=== PATIENT | female | born 1980 | race Caucasian/White ===

== ENCOUNTER 2017-12-24 02:35 | Emergency (ER) | payer MEDICAID ==
[~2017-12-24] VITALS: Ht 157.5 cm; Wt 113.4 kg
[~2017-12-24 02:35] MED LIST: ALB6.8IN; ALBU17AE3; ALPR.5T; AZIT-21; BSP10T; CYCL10TA9 PO; D-ME473S42; DELSYM; DOXE10CA; DOXE10CA29; DOXE75CA2; DULO60CA6; EST.625T; GBPN300C; HYDR1CAP2; HYDR1CAP2 PO; HYDR1TAB; IBP800T PO; LEVO750T6 PO; LRT10T; METH4TAB PO; METO10TA3 PO; MTC10T; NAPR-243 PO; NF-ESOM40C; NPR250TRX; ONDAN4ODT PO; PRM25T PO; RNT150T; SERT50TA; SLEEPING PILL; SRTR100T; THIO25TA; TRAM50TA2; TRM50T PO; TRZ100T; ZPR40C; [UNRECOGNIZED DRUG - CODE]; [UNRECOGNIZED DRUG - OTHER]
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
--- OUTSIDE RECORDS SUMMARY | 2017-12-24 02:42 | XMS REPORT ---
Author Author CINDY MARCIAL Organization [facility] Address [address] [place] [address] Care Team Providers Care Adjunct Communications Faculty Member Name Role Phone NEERUCHRIS CUELLOA Unavailable PROBLEMS Type Condition ICD9-CM Code SLZ17-UD Code Onset Dates Condition Status SNOMED Code Problem Lumbago with sciatica, left side M54.42 Active 542605786 Problem Other chronic pain G89.29 Active 51402661 Problem Lumbago with sciatica, right side M54.41 Active [id number] Problem Fibrocystic changes of left breast N60.12 Active 71494809 Problem Panic disorder with agoraphobia F40.01 Active 00102631 Problem 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 Active [id number] Problem COPD (chronic obstructive pulmonary disease) J44.9 Active 87440111 Problem Bipolar disease, chronic F31.9 Active 96650109 Problem Morbid (severe) obesity due to excess calories E66.01 Active [id number] Problem Body mass index (BMI) of 40.0-44.9 in adult Z68.41 Active 425647228 Problem Right sciatic nerve pain M54.31 Active 67274092 Problem Depressive disorder, not elsewhere classified F32.9 Active 23918412 Problem Acquired hypothyroidism E03.9 Active 516816650 Problem Pre-diabetes R73.03 Active 209664631 Problem Degenerative joint disease M19.90 Active 233522331 Problem Chronic pain G89.29 Active 37375407 Problem Methamphetamine use disorder, severe, 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 Active 32713165 Problem Opioid use disorder, moderate, dependence F11.20 Active 80301792 Problem Cigarette nicotine dependence without complication F17.210 Active 60840282 Problem Psychosis, unspecified psychosis type F29 Active 61846620 Problem Xanax use disorder, moderate F13.20 Active 744043629 Problem Personality disorder F60.9 Active 93474453 ALLERGIES Substance Reaction Event Type Date Status Tramadol HCl nausea and vomiting Drug Allergy Sep, Active Penicillin V Potassium anaphylaxis Drug Allergy Sep, Active Naproxen swelling Drug Allergy Sep, Active Keflex anaphylaxis Drug Allergy Sep, Active Ibuprofen nausea and vomitting Drug Allergy Sep, Active Aspirin hives Drug Allergy Sep, Active ENCOUNTERS Encounter Location Date Diagnosis [facility] [place] [facility] [id number] [place] [address]66- 9295 Jan, [facility] [facility] [address] [address]- [address] Dec, [place] [address] [address]- [address] Dec, [place] [address] [address]- 5639 Dec, [place] [address] 30541- 0044 Dec, Methamphetamine use disorder, severe, 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 ; Psychosis, unspecified psychosis type F29 ; Personality disorder F60.9 ; Opioid use disorder, moderate, dependence F11.20 ; Xanax use disorder, moderate F13.20 and BMI 45.0-49.9, adult Z68.42 [place] [id number] [place] [address] 09784- 4705 Dec, [place] [id number] [place] [address] 96052- 5387 Oct, Breast pain N64.4 ; Fibrocystic changes of left breast N60.12 and Bilateral otitis media with effusion H65.93 [facility] [id number] [place] [address] -3864 Sep, 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 [facility] [place] [facility] [id number] [place] [address] 07646- 1925 Sep, [facility] [place] [facility] [id number] [place] [address] 44385- 6906 Sep, Methamphetamine use disorder, severe, 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 ; Psychosis, unspecified psychosis type F29 ; Personality disorder F60.9 ; Opioid use disorder, moderate, dependence F11.20 ; Xanax use disorder, moderate F13.20 and BMI 40.0-44.9, adult Z68.41 [facility] [place] [facility] [id number] [place] [address] 93503- 9376 Sep, Depressive disorder, not elsewhere classified F32.9 and Psychosis, unspecified psychosis type F29 [place] [address] 6[address]65- 6513 August, [place] [address] 169408- 9343 August, Depressive disorder, not elsewhere classified F32.9 and Psychosis, unspecified psychosis type F29 [place] [address] 54526- 2436 August, [place] [address] 53571- 7697 August, Lumbago with sciatica, right side M54.41 and Other chronic pain G89.29 [facility] [address] 31492 -3087 Jul, Right sciatic nerve pain M54.31 [place] [address] 17997- 3942 Jul, Acquired hypothyroidism E03.9 [facility] [facility] [address] 6[address]00- 1396 Jul, Depressive disorder, not elsewhere classified F32.9 and Psychosis, unspecified psychosis type F29 [place] [address] 46688- 3707 Jul, Acquired hypothyroidism E03.9 ; Lumbago with sciatica, right side M54.41 and Lumbar radiculopathy, acute M54.16 [facility] [place] [facility] [address] 15724- 4732 Jul, Methamphetamine use disorder, severe, 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 ; Psychosis, unspecified psychosis type F29 ; Personality disorder F60.9 ; Opioid use disorder, moderate, dependence F11.20 ; Xanax use disorder, moderate F13.20 and BMI 40.0-44.9, adult Z68.41 [place] [id number] [place] [address] 48520- 0159 Jun, Methamphetamine use disorder, severe, 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 ; Psychosis, unspecified psychosis type F29 ; Personality disorder F60.9 ; Opioid use disorder, moderate, dependence F11.20 and Xanax use disorder, moderate F13.20 [place] [address] 93900- 1493 Jun, Depressive disorder, not elsewhere classified F32.9 and Psychosis, unspecified psychosis type F29 [place] [id number] [place] [address] 74436- 0283 Jun, Lumbar radiculopathy, acute M54.16 [place] [id number] [place] [address] 62970- 5613 Jun, Lumbar radiculopathy, acute M54.16 ; Strain of abdominal wall, initial encounter S39.011A and BMI 40.0-44.9, adult Z68.41 [place] [id number] [place] [address] 01441- 5661 Jun, [place] [id number] [place] [address] 40474- 6127 May, [place] [id number] [place] [address] 80691- 2934 May, Methamphetamine use disorder, severe, 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 ; Psychosis, unspecified psychosis type F29 ; Personality disorder F60.9 ; Opioid use disorder, moderate, dependence F11.20 and Xanax use disorder, moderate F13.20 [place] [id number] [place] [address] 94936- 2722 May, [facility] [facility] [address] 09034- 8344 May, [place] [address] 89052- 8652 May, Lumbago with sciatica, left side M54.42 ; Lumbago with sciatica, right side M54.41 ; Other chronic pain G89.29 ; Weight gain R63.5 ; Acquired hypothyroidism E03.9 and BMI 40.0-44.9, adult Z68.41 [place] [address] 51903- 3554 Apr, Cigarette nicotine dependence without complication F17.210 [place] [address] 63227- 3126 Apr, Acute bilateral low back pain without sciatica M54.5 [place] [address] 11729- 3189 Apr, Methamphetamine use disorder, severe, 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 ; Psychosis, unspecified psychosis type F29 ; Personality disorder F60.9 ; Opioid use disorder, moderate, dependence F11.20 and Xanax use disorder, moderate F13.20 [facility] [address] 94773 -7467 Apr, Wheezing R06.2 and Bronchitis J40 [place] [address] 90198- 2692 Apr, Bronchitis J40 ; Cigarette nicotine dependence without complication F17.210 and Bipolar disease, chronic F31.9 [place] [address] 00176- 4253 Mar, Acquired hypothyroidism E03.9 [place] [address] 91903- 8173 Mar, Acquired hypothyroidism E03.9 [facility] [facility] [address] [id number]- 2546 Mar, Orthostatic hypotension I95.1 and Non-intractable vomiting with nausea, unspecified vomiting type R11.2 [place] [id number] [place] [address] 98736- 0965 14 Mar, 2017 Strain of lumbar region, initial encounter S39.012A [address] 28308- 7152 Mar, [facility] [address] [place] [address]648 -2412 Mar, Bronchitis J40 [address] 44060- 9434 05 Mar, 2017 Degenerative joint disease M19.90 ; Elevated LFTs R79.89 ; Adenopathy R59.1 ; Drug use F19.90 ; Pre-diabetes R73.03 and COPD (chronic obstructive pulmonary disease) J44.9 [facility] [address] [address] Feb, Left hand pain M79.642 and Contusion of left hand, initial encounter S60.222A [address] 54929- 9582 Feb, Body aches R52 and Flu-like symptoms R68.[address] 35431- 5848 Jan, [address] 64421- 3861 18 Jan, 2017 Bipolar disease, chronic F31.9 ; Acquired hypothyroidism E03.9 and Encounter for immunization Z23 [facility] [address] 296[address]96 05 Dec, 2016 Crushing injury of left wrist and hand, initial encounter S67.42XA [address] 15746- 3775 Sep, [place] [address] 60217- 4810 Sep, Bipolar disease, chronic F31.9 ; Panic disorder with agoraphobia F40.01 and Proteinuria, unspecified type R80.9 [place] [address] 37364- 4963 August, [address] 56700- 0788 August, Degenerative joint disease M19.90 ; Left-sided chest wall pain R07.89 ; Bipolar disease, chronic F31.9 ; Type 2 diabetes mellitus without complication, without long-term current use of insulin E11.9 ; Acquired hypothyroidism E03.9 and Acute cystitis without hematuria N30.[address] 05569- 7430 Mar, [address] 19588- 3117 Feb, [facility] [address] 9[address] -9362 Feb, Right hand pain M79.641 [facility] [address] 01266 -5269 Feb, Bronchitis J40 ; Acute non-recurrent pansinusitis J01.40 and Seasonal allergic rhinitis due to other allergic trigger J30.[address] 32821- 7108 Dec, [facility] [address] 37960 -7135 Mar, Left-sided chest wall pain R07.89 and Chronic pain G89.[address] 67360- 4298 Jul, [address] 79705- 7009 Jul, [facility] [place] [facility] [address] [id number] [place] [address]- 8010 May, [facility] [place] [facility] [address] [id number] [place] [address]- 4210 May, [facility] [place] [facility] [address] [id number] [place] 7[address] Apr, [facility] [place] [facility] [address] [id number] [place] [address]- 0046 Apr, [facility] [place] [facility] [address] [id number] [place] [address]- 2830 Mar, [facility] [place] [facility] [address] [id number] [place] [address]- 0028 Mar, [facility] [place] [facility] [address] [facility] [id number] [place] [address]- 3005 Feb, [facility] [place] [facility] [address] [id number] [place] [address]- 7388 Feb, [facility] [place] [facility] [address] [id number] [place] [address]- 3863 Jan, [facility] [place] [facility] [address] [id number] [place] [address]- 1329 Jan, [facility] [place] [facility] [address] [id number] [address]- 2328 Jan, [facility] [place] [facility] [address] [id number] [address]- 3538 Jan, [facility] [place] [facility] [address] [id number] [place] [address]- 8090 Jan, [facility] [place] [facility] [address] [id number] [place] [address]- 1435 Jan, [facility] [place] [facility] [address] [facility] [id number] [place] 8266 19 Dec, 2013 [facility] [place] [facility] [address] [id number] [address]- 7949 19 Dec, 2013 [facility] [place] [facility] [address] [id number] [place] [address]- 1171 19 Dec, 2013 [facility] [place] [facility] [address] [id number] [place] [address]- 6828 19 Dec, 2013 [facility] [place] [facility] [address] [id number] [place] [address]- 0992 18 Dec, 2013 [facility] [place] [facility] [address] [id number] [place] [address]- 6046 18 Dec, 2013 [facility] [place] [facility] [address] [id number] [place] [address]- 5190 16 Dec, 2013 [facility] [place] [facility] [address] [id number] [place] [address]- 6037 16 Dec, 2013 [facility] [place] [facility] [address] [id number] [place] [address]- 1334 17 Sep, 2013 [facility] [place] [facility] [address] [id number] [place] [address]- 3322 17 Sep, 2013 [facility] [place] [facility] [address] [id number] [place] [address]- 7014 15 Jul, 2013 [facility] [place] [facility] [address] [id number] [place] [address]- 6380 15 Jul, 2013 [facility] [place] [facility] [address] [id number] [place] [address]- 2004 10 Jul, 2013 [facility] [place] [facility] [address] [id number] [place] [address]- 7352 10 Jul, 2013 [facility] [place] [facility] [address] [id number] [place] [address]- 8572 03 Jul, 2013 [facility] [place] [facility] [address] [id number] [place] [address]- 9849 03 Jul, 2013 [facility] [place] [facility] [address] [id number] [place] [address]- 2180 03 Jul, 2013 [facility] [place] [facility] [address] [id number] [place] [address]- 9010 Jul, [facility] [place] [facility] [address] [id number] [place] [address]- 7216 Jun, [facility] [place] [facility] [address] [id number] [place] [address]- 7809 Jun, [facility] [place] [facility] [address] [id number] [place] [address]- 0074 May, [facility] [place] [facility] [address] [id number] [place] [address]- 8142 May, [facility] [place] [facility] [address] [id number] [place] [address]- 4104 May, [facility] [place] [facility] [address] [id number] [place] [address]- 4303 May, [facility] [place] [facility] [address] [id number] [place] [address]- 7186 Apr, [facility] [place] [facility] [address] [id number] [place] [address]- 5292 Apr, [facility] [place] [facility] [address] [id number] [place] [address]- 5213 Mar, [facility] [place] [facility] [address] [id number] [place] [address]- 9428 Mar, [facility] [place] [facility] [address] [id number] [place] [address]- 5505 Feb, [facility] [place] [facility] [address] [id number] [place] [address]- 0531 Feb, [facility] [place] [facility] [address] [id number] [place] [address]- 1105 Feb, [facility] [place] [facility] [address] [id number] [place] [address]- 7951 Feb, [facility] [place] [facility] [address] [id number] [place] [address]- 1366 Jan, [facility] [address] [id number] [place] [address]- 9899 Jan, [facility] [place] [facility] [address] [id number] [place] [address]- 7906 Jan, [facility] [place] [facility] [address] [id number] [place] [address]- 7773 Jan, [facility] [place] [facility] [address] [id number] [place] [address]- 8617 Jan, [facility] [place] [facility] [address] [id number] [place] [address]- 6063 Dec, [facility] [place] [facility] [address] [id number] [place] [address]- 3875 Dec, [facility] [place] [facility] [address] [id number] [place] [address]- 1503 Nov, [facility] [place] [facility] [address] [id number] [place] [address]- 0636 Sep, [facility] [place] [facility] [address] [id number] [place] [address]- 8927 August, [facility] [place] [facility] [address] [id number] [place] [address]- 5752 August, [facility] [place] [facility] [address] [id number] [place] [address]- 4570 Jul, [facility] [place] [facility] [address] [id number] [place] [address]- 6561 Jul, [facility] [place] [facility] [address] [id number] [place] [address]- 1000 Jul, [facility] [place] [facility] [address] [id number] [place] [address]- 3316 Jul, [facility] [place] [facility] [address] [id number] [place] [address]- 8447 Jul, [facility] [place] [facility] [address] [id number] [place] [address]- 2546 Jul, [facility] [address] [id number] [place] [address]- 8016 Jul, [facility] [address] [id number] [place] [address] 2546 Jun, [facility] [address] [id number] [place] [address]- 2216 Jun, [facility] [address] [id number] [place] [address]- 2546 May, [facility] [address] [id number] [place] [address]- 4994 Apr, [facility] [address] [id number] [place] [address]- 3156 Apr, [facility] [address] [id number] [place] [address]- 6675 Mar, [facility] [address] [id number] [place] [address]- 1576 Mar, [facility] [address] [id number] [place] [address]- 8640 Mar, [facility] [address] [id number] [place] [address]- 2147 Feb, [facility] [address] [id number] [place] [address]- 6000 Feb, [facility] [address] [id number] [place] [address]- 2549 Feb, [facility] [address] [id number] [place] [address]- 3357 Feb, [facility] [address] [id number] [place] [address]- 1226 Feb, [facility] [address] [id number] [place] [address]- 0184 Feb, [facility] [place] [facility] [address] [id number] [place] [address]- 3567 16 Feb, 2012 [facility] [place] [facility] [address] [id number] [place] [address]- 4768 16 Feb, 2012 [facility] [place] [facility] [address] [id number] [place] [address]- 3569 14 Feb, 2012 [facility] [place] [facility] [address] [id number] [place] [address]- 9794 Feb, [facility] [place] [facility] [address] [id number] [place] [address]- 1418 Feb, [facility] [place] [facility] [address] [id number] [place] [address]- 3305 27 Dec, 2011 [facility] [place] [facility] [address] [id number] [place] [address]- 7685 Dec, [facility] [place] [facility] [address] [id number] [place] [address]- 5719 30 Nov, 2011 [facility] [place] [facility] [address] [id number] [place] [address]- 5439 Nov, [facility] [place] [facility] [address] [id number] [place] [address]- 4321 Oct, [facility] [place] [facility] [address] [id number] [place] [address]- 2482 Oct, [facility] [place] [facility] [address] [id number] [place] [address]- 8813 Sep, [facility] [place] [facility] [address] [id number] [place] [address]- 8848 May, [facility] [place] [facility] [address] [id number] [place] [address]- 7616 15 May, 2011 [facility] [place] [facility] [address] [id number] [place] [address]- 7056 May, [facility] [place] [facility] [address] [id number] [place] [address]- 0606 03 Apr, 2011 [facility] [place] [facility] [address] [id number] [place] [address]- 0965 Mar, [facility] [place] [facility] [address] [id number] [place] [address]- 3190 Mar, [facility] [place] [facility] [address] [id number] [place] [address]- 7623 Feb, [facility] [place] [facility] [address] [id number] [place] [address]- 3342 Feb, [facility] [place] [facility] [address] [id number] [place] [address]- 3344 Feb, [facility] [place] [facility] [address] [id number] [place] [address]- 5957 Jan, [facility] [place] [facility] [address] [id number] [place] [address]- 3194 Jan, [facility] [place] [facility] [address] [id number] [place] [address] Dec, [facility] [place] [facility] [address] [id number] [place] [address] Mar, [facility] [place] [facility] [address] [id number] [place] [address] Feb, [facility] [place] [facility] [address] [id number] [place] [address] 10 Feb, 2009 [facility] [place] [facility] [address] [id number] [place] [address] Feb, [facility] [place] [facility] [address] [id number] [place] [address] Jan, [facility] [place] [facility] [address] [id number] [place] [address] 16 Dec, 2008 [facility] [place] [facility] [address] [id number] [place] [address] Nov, [facility] [place] [facility] [address] [facility] [id number] [place] [address] Sep, [facility] [place] [facility] [address] [facility] [id number] [place] [address] August, [facility] [place] [facility] [address] [facility] [id number] [place] [address] May, [facility] [place] [facility] [address] [facility] [id number] [place] [address] Mar, IMMUNIZATIONS No Known Immunizations SOCIAL HISTORY Never Assessed REASON FOR VISIT refugio/britni Dumont MA PLAN OF CARE Activity Details Follow Up 3 Months, prn Reason: VITAL SIGNS Height 63 in 2017-09-14 Weight 250 lbs 2017-09-14 Heart Rate 90 bpm 2017-09-14 Respiratory Rate 20 2017-09-14 Oximetry on room air:94 % 2017-09-14 BMI 44.28 kg/m2 2017-09-14 Blood pressure systolic 120 mmHg 2017-09-14 Blood pressure diastolic 68 mmHg 2017-09-14 MEDICATIONS Medication Instructions Dosage Frequency Start Date End Date Duration Status Synthroid 50 mcg Orally Once a day 1 tablet on an empty stomach in the morning 24h August, Active Seroquel 300 MG Orally Once a day 1 tablet 24h Apr, 30 days Active HydrOXYzine HCl 100 mg Orally three times a day as needed for anxiety 1 tablet as needed May, 30 days Active Diclofenac Sodium 75 MG Orally Twice a day 1 tablet with food or milk 12h August, Dec, 30 day(s) Active Womens One Daily - Active ProAir HFA 108 (90 Base) MCG/ACT Inhalation every 6 hrs 2 puffs as needed 6h Mar, Active Valium 5 mg Orally Twice a day, for procedure 1 tablet as needed August, Not-Taking Tizanidine HCl 4 MG Orally Three times a day 1 tablet as needed 8h August, Not-Taking RESULTS No Results PROCEDURES No Known procedures INSTRUCTIONS MEDICATIONS ADMINISTERED No Known Medications MEDICAL [...] psychiatric, harming, suicide ideat and attempts. Rios Shepherd, Lacie, [place] last around 2006 Hospitalization History left foot swollen, stepped in [facility] 05/02/17
--- OUTSIDE RECORDS SUMMARY | 2017-12-24 02:42 | XMS REPORT ---
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 Active [id number] Problem COPD (chronic obstructive pulmonary disease) J44.9 Active 91441465 Problem Bipolar disease, chronic F31.9 Active 64686512 Problem Morbid (severe) obesity due to excess calories E66.01 Active 63051254500742 Problem Body mass index (BMI) of 40.0-44.9 in adult Z68.41 Active 513402173 Problem Right sciatic nerve pain M54.31 Active 20804238 Problem Depressive disorder, not elsewhere classified F32.9 Active 71885689 Problem Acquired hypothyroidism E03.9 Active 784689786 Problem Pre-diabetes R73.03 Active 404624100 Problem Degenerative joint disease M19.90 Active 272473762 Problem Chronic pain G89.29 Active 25455723 Problem Methamphetamine use disorder, severe, 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 Active 22797010 Problem Opioid use disorder, moderate, dependence F11.20 Active 29949919 Problem Cigarette nicotine dependence without complication F17.210 Active 85794991 Problem Psychosis, unspecified psychosis type F29 Active 54203198 Problem Xanax use disorder, moderate F13.20 Active 478287755 Problem Personality disorder F60.9 Active 14443733 ALLERGIES Substance Reaction Event Type Date Status Tramadol HCl nausea and vomiting Drug Allergy 25 Dwain, 2018 Active Penicillin V Potassium anaphylaxis Drug Allergy Sep, Active Naproxen swelling Drug Allergy Sep, Active Keflex anaphylaxis Drug Allergy Sep, Active Ibuprofen nausea and vomitting Drug Allergy Sep, Active Aspirin hives Drug Allergy Sep, Active ENCOUNTERS Encounter Location Date Diagnosis [facility] [id number] [place] [address] 54659- 9160 Dec, [facility] [address] 21678- 0249 Dec, [facility] [id number] [place] [address] 69271- 4164 Dec, [place] [address] 32948- 0829 Oct, Breast pain N64.4 ; Fibrocystic changes of left breast N60.12 and Bilateral otitis media with effusion H65.93 [facility] [id number] [place] [address] 44948 -2488 Sep, 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9 and Psychosis, unspecified psychosis type F29 [facility] [id number] [place] [address] 55206- 6400 August, [place] [id number] [place] [address] 47753- 0845 August, Depressive disorder, not elsewhere classified F32.9 and Psychosis, unspecified psychosis type F29 [facility] [id number] [place] [address] 35559- 8808 August, [place] [id number] [place] [address] 65347- 8401 August, Lumbago with sciatica, right side M54.41 and Other chronic pain G89.29 [facility] [id number] [place] [address] 06659 -3375 Jul, Right sciatic nerve pain M54.31 [place] [id number] [place] [address] 33151- 5257 Jul, Acquired hypothyroidism E03.9 [place] [id number] [place] [address] 46065- 3389 Jul, Depressive disorder, not elsewhere classified F32.9 and Psychosis, unspecified psychosis type F29 [place] [id number] [place] [address] 75168- 5600 Jul, Acquired hypothyroidism E03.9 ; Lumbago with sciatica, right side M54.41 and Lumbar radiculopathy, acute M54.16 [place] [id number] [place] [address] 98121- 4342 Jul, Methamphetamine use disorder, severe, 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 ; Psychosis, unspecified psychosis type F29 ; Personality disorder F60.9 ; Opioid use disorder, moderate, dependence F11.20 ; Xanax use disorder, moderate F13.20 and BMI 40.0-44.9, adult Z68.41 [place] [id number] [place] [address] 93802- 3912 Jun, Methamphetamine use disorder, severe, 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 ; Psychosis, unspecified psychosis type F29 ; Personality disorder F60.9 ; Opioid use disorder, moderate, dependence F11.20 and Xanax use disorder, moderate F13.20 [place] [address] [place] [address] 27557- 4027 Jun, Depressive disorder, not elsewhere classified F32.9 and Psychosis, unspecified psychosis type F29 [place] [id number] [place] [address] 18601- 7343 Jun, Lumbar radiculopathy, acute M54.16 [place] [address] 94210- 6253 Jun, Lumbar radiculopathy, acute M54.16 ; Strain of abdominal wall, initial encounter S39.011A and BMI 40.0-44.9, adult Z68.41 [place] [id number] [place] [address] 77320- 9514 Jun, [place] [id number] [place] [address] 90139- 4812 May, [place] [id number] [place] [address] 19717- 4137 May, Methamphetamine use disorder, severe, 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 ; Psychosis, unspecified psychosis type F29 ; Personality disorder F60.9 ; Opioid use disorder, moderate, dependence F11.20 and Xanax use disorder, moderate F13.20 [place] [id number] [place] [address] 16442- 0734 May, [place] [id number] [place] [address] 20205- 9645 May, [place] [id number] [place] [address] 93853- 4596 May, Lumbago with sciatica, left side M54.42 ; Lumbago with sciatica, right side M54.41 ; Other chronic pain G89.29 ; Weight gain R63.5 ; Acquired hypothyroidism E03.9 and BMI 40.0-44.9, adult Z68.41 [place] [id number] [place] [address] 51544- 5630 Apr, Cigarette nicotine dependence without complication F17.210 [place] [id number] [place] [address] 74282- 1317 Apr, Acute bilateral low back pain without sciatica M54.5 [place] [id number] [place] [address] 54747- 0383 Apr, Methamphetamine use disorder, severe, 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 ; Psychosis, unspecified psychosis type F29 ; Personality disorder F60.9 ; Opioid use disorder, moderate, dependence F11.20 and Xanax use disorder, moderate F13.20 [facility] [address] 95212 -7599 Apr, Wheezing R06.2 and Bronchitis J40 [place] [address] 03728- 1427 Apr, Bronchitis J40 ; Cigarette nicotine dependence without complication F17.210 and Bipolar disease, chronic F31.9 [place] [address] 57384- 1777 Mar, Acquired hypothyroidism E03.9 [place] [address] 17561- 4312 Mar, Acquired hypothyroidism E03.9 [place] [address] 52341- 2459 Mar, Orthostatic hypotension I95.1 and Non-intractable vomiting with nausea, unspecified vomiting type R11.2 [place] [id number] [place] [address] 21546- 8131 Mar, Strain of lumbar region, initial encounter S39.012A [place] [address] 10682- 5574 Mar, [facility] [id number] [place] [address] 95468 -7075 Mar, Bronchitis J40 [place] [address] [place] [address]- 0216 Mar, Degenerative joint disease M19.90 ; Elevated LFTs R79.89 ; Adenopathy R59.1 ; Drug use F19.90 ; Pre-diabetes R73.03 and COPD (chronic obstructive pulmonary disease) J44.9 [facility] [address] 21661 -5007 Feb, Left hand pain M79.642 and Contusion of left hand, initial encounter S60.222A [place] [address] 87108- 9342 Feb, Body aches R52 and Flu-like symptoms R68.89 [place] [address] 93788- 1848 Jan, [address] 03838- 8851 Jan, Bipolar disease, chronic F31.9 ; Acquired hypothyroidism E03.9 and Encounter for immunization Z23 [facility] [address] 97371 -0037 05 Dec, 2016 Crushing injury of left wrist and hand, initial encounter S67.42XA [place] [address] 70755- 0665 Sep, [address] 39508- 5652 Sep, Bipolar disease, chronic F31.9 ; Panic disorder with agoraphobia F40.01 and Proteinuria, unspecified type R80.9 [place] [address] 65991- 4308 August, [place] [address] 82044- 4451 August, Degenerative joint disease M19.90 ; Left-sided chest wall pain R07.89 ; Bipolar disease, chronic F31.9 ; Type 2 diabetes mellitus without complication, without long-term current use of insulin E11.9 ; Acquired hypothyroidism E03.9 and Acute cystitis without hematuria N30.00 [facility] [id number] [place] [address] 01465- 4494 Mar, [facility] [id number] [place] [address] 70346- 8970 Feb, [facility] [address] 65077 -0277 Feb, Right hand pain M79.641 [facility] [id number] [place] [address] 30665 -9242 Feb, Bronchitis J40 ; Acute non-recurrent pansinusitis J01.40 and Seasonal allergic rhinitis due to other allergic trigger J30.89 [place] [address] 16509- 5968 Dec, [facility] [id number] [place] [address] 36662 -6743 Mar, Left-sided chest wall pain R07.89 and Chronic pain G89.29 [place] [id number] [place] [address] 06760- 6259 Jul, [place] [id number] [place] [address] 10205- 7926 Jul, [place] [id number] [place] [address] 57695- 1622 May, [place] [id number] [place] [address] 31354- 9364 May, [place] [id number] [place] [address] 89816- 9147 Apr, [facility] [id number] [place] [address] 31310- 8033 Apr, [place] [address] 75464- 1102 Mar, [facility] [place] [facility] [address] [id number] [place] [address]- 6055 16 Mar, 2014 [facility] [place] [facility] [address] [id number] [place] [address]- 7114 Feb, [facility] [place] [facility] [address] [id number] [place] 8009 Feb, [facility] [place] [facility] [address] [id number] [place] [address]- 8608 Jan, [facility] [place] [facility] [address] [id number] [place] [address]- 4156 Jan, [facility] [place] [facility] [address] [id number] [place] [address]- 0730 Jan, [facility] [place] [facility] [address] [id number] [place] [address]- 3745 Jan, [facility] [place] [facility] [address] [id number] [place] [address]- 0478 Jan, [facility] [place] [facility] [address] [id number] [place] [address]- 6757 15 Jan, 2014 [facility] [place] [facility] [address] [id number] [place] [address]- 3600 19 Dec, 2013 [facility] [place] [facility] [address] [id number] [place] [address]- 5665 19 Dec, 2013 [facility] [place] [facility] [address] [id number], [place] [address]- 0977 19 Dec, 2013 [facility] [place] [facility] [address] [id number] [place] [address]- 0862 19 Dec, 2013 [facility] [place] [facility] [address] [id number] [place] [address]- 0001 18 Dec, 2013 [facility] [place] [facility] [address] [id number] [place] [address]- 4138 18 Dec, 2013 [facility] [place] [facility] [address] [id number] [place] [address]- 0225 16 Dec, 2013 [facility] [place] [facility] [address] [id number] [place] [address]- 5896 16 Dec, 2013 [facility] [place] [facility] [address] [id number] [place] [address]- 1339 17 Sep, 2013 [facility] [place] [facility] [address] [id number] [place] [address]- 8510 17 Sep, 2013 [facility] [place] [facility] [address] [id number] [place] [address]- 4065 15 Jul, 2013 [facility] [place] [facility] [address] [id number] [place] [address]- 3464 15 Jul, 2013 [facility] [place] [facility] [address] [id number] [place] [address]- 0936 Jul, [facility] [place] [facility] [address] [id number] [place] [address]- 7530 Jul, [facility] [place] [facility] [address] [id number] [place] [address]- 1800 Jul, [facility] [place] [facility] [address] [id number] [place] [address]- 9296 Jul, [facility] [place] [facility] [address] [id number] [place] [address]- 4169 Jul, [facility] [place] [facility] [address] [id number] [place] [address]- 1055 Jul, [facility] [place] [facility] [address] [id number] [place] [address]- 2060 Jun, [facility] [place] [facility] [address] [id number] [place] [address]- 0334 Jun, [facility] [place] [facility] [address] [id number] [place] [address]- 5898 May, [facility] [place] [facility] [address] [id number] [place] [address]- 5562 May, [facility] [place] [facility] [address] [id number] [place] [address]- 5947 May, [facility] [place] [facility] [address] [id number] [place] [address]- 1238 May, [facility] [place] [facility] [address] [id number] [place] 0876 Apr, [facility] [place] [facility] [address] [id number] [place] [address]- 3337 Apr, [facility] [place] [facility] [address] [id number] [place] [address]- 0094 Mar, [facility] [place] [facility] [address] [id number] [place] [address]- 2285 Mar, [facility] [place] [facility] [address] [id number] [place] [address]- 2268 Feb, [facility] [place] [facility] [address] [id number] [place] [address]- 2713 Feb, [facility] [place] [facility] [address] [id number] [place] [address]- 3461 Feb, [facility] [place] [facility] [address] [id number] [place] [address]- 2717 Feb, [facility] [place] [facility] [address] [facility] [id number] [place] [address]- 8128 Jan, [facility] [place] [facility] [address] [id number] [place] [address]- 8881 Jan, [facility] [place] [facility] [address] [id number] [place] [address]- 5963 Jan, [facility] [place] [facility] [address] [id number] [place] [address]- 9869 Jan, [facility] [place] [facility] [address] [id number] [place] [address]- 2165 Jan, [facility] [place] [facility] [address] [id number] [place] [address]- 4289 Dec, [facility] [address] [id number] [place] [address]- 5286 Dec, [facility] [address] [id number] [place] [address]- 5325 Nov, [facility] [address] [id number] [place] [address]- 9839 Sep, [facility] [address] [id number] [place] [address]- 5651 August, [facility] [address] [id number] [place] [address]- 4150 August, [facility] [address] [id number] [place] [address]- 8990 Jul, [facility] [address] [id number] [place] [address]- 6770 Jul, [facility] [address] [id number], [place] [address]- 2761 Jul, [facility] [address] [id number] [place] [address]- 0890 Jul, [facility] [place] [facility] [address] [id number] [place] [address]- 1295 Jul, [facility] [address] [id number], [place] [address]- 0463 Jul, [facility] [place] [facility] [address] [id number], [place] [address]- 2540 Jul, [facility] [place] [facility] [address] [id number] [place] [address]- 2544 Jun, [facility] [place] [facility] [address] [id number] [place] [address]- 6876 Jun, [facility] [place] [facility] [address] [id number] [place] [address]- 2546 May, [facility] [place] [facility] [address] [id number] [place] [address]- 9589 Apr, [facility] [address] [id number] [place] [address]- 2581 Apr, [facility] [address] [id number] [place] [address]- 0616 Mar, [facility] [address] [id number] [place] [address]- 9114 Mar, [facility] [place] [facility] [address] [id number] [place] [address]- 9458 Mar, [facility] [address] [id number] [place] [address]- 4776 Feb, [facility] [address] [id number] [place] [address]- 6122 Feb, [facility] [address] [id number] [place] [address]- 4490 Feb, [facility] [address] [id number] [place] [address]- 9679 24 Feb, 2012 [facility] [address] [id number] [place] [address]- 0951 Feb, [facility] [address] [id number] [place] [address]- 1397 Feb, [facility] [place] [facility] [address] [id number] [place] [address]- 4631 16 Feb, 2012 [facility] [place] [facility] [address] [id number] [place] [address]- 0858 16 Feb, 2012 [facility] [place] [facility] [address] [id number] [place] [address]- 8982 14 Feb, 2012 [facility] [place] [facility] [address] [id number] [place] [address]- 6085 08 Feb, 2012 [facility] [place] [facility] [address] [id number] [place] [address]- 9667 Feb, [facility] [place] [facility] [address] [id number] [place] [address]- 4710 Dec, [facility] [place] [facility] [address] [id number] [place] [address]- 8346 Dec, [facility] [place] [facility] [address] [id number] [place] [address]- 1907 Nov, [facility] [place] [facility] [address] [id number] [place] [address]- 2752 Nov, [facility] [place] [facility] [address] [id number] [place] [address]- 1952 Oct, [facility] [place] [facility] [address] [id number] [place] [address]- 1328 Oct, [facility] [place] [facility] [address] [id number] [place] [address]- 3725 Sep, [facility] [place] [facility] [address] [id number] [place] [address]- 9248 May, [facility] [place] [facility] [address] [id number] [place] [address]- 7109 May, [facility] [place] [facility] [address] [id number] [place] [address]- 2730 May, [facility] [place] [facility] [address] [id number] [place] [address]- 7216 Apr, [facility] [place] [facility] [address] [id number] [place] [address]- 5868 Mar, [facility] [place] [facility] [address] [id number] [place] [address]- 5962 Mar, [facility] [place] [facility] [address] [id number] [place] [address]- 2756 Feb, [facility] [place] [facility] [address] [id number] [place] [address]- 2548 Feb, [facility] [place] [facility] [address] [id number], [place] [address] 2546 Feb, [facility] [address] [facility] [id number], [place] [address]- 6903 14 Jan, 2011 [facility] [address] [address]- 1676 14 Jan, 2011 [facility] [address] [address]- 0996 19 Dec, 2010 [facility] [address], [place] [address]- 2966 Mar, [facility] [address], [place] [address]- 6971 Feb, [facility] [address], [place] [address]- 1656 Feb, [facility] [address], [place] [address]- 7356 Feb, [facility] [address], [place] [address]- 8978 Jan, [facility] [address], [place] [address] Dec, [facility] [id number] [place] [address] Nov, [facility] [id number] [place] [address] Sep, [facility] [id number] [address] August, [facility] [id number] [place] [address] May, [facility] [id number], [place] [address] Mar, IMMUNIZATIONS No Known Immunizations SOCIAL HISTORY Never Assessed REASON FOR VISIT reports her right elbow hurts. woke up at 0400 this am et couldnt straighten her arm. jerrodn PLAN OF CARE Activity Details Follow Up prn Reason: VITAL SIGNS Height 63 in 2017-10-02 Weight 253.5 lbs 2017-10-02 Temperature 97.6 degrees Fahrenheit 2017-10-02 Heart Rate 80 bpm 2017-10-02 Respiratory Rate 20 2017-10-02 BMI 44.90 kg/m2 2017-10-02 Blood pressure systolic 130 mmHg 2017-10-02 Blood pressure diastolic 80 mmHg 2017-10-02 MEDICATIONS Medication Instructions Dosage Frequency Start Date End Date Duration Status Diclofenac Sodium 75 MG Orally Twice a day 1 tablet with food or milk 12h August, Dec, 30 day(s) Active HydrOXYzine HCl 100 mg Orally three times a day as needed for anxiety 1 tablet as needed May, 30 days Active Seroquel 300 MG Orally Once a day 1 tablet 24h 18 Apr, 2017 30 days Active ProAir HFA 108 (90 Base) MCG/ACT Inhalation every 6 hrs 2 puffs as needed 6h Mar, Active Tizanidine HCl 4 MG Orally Three times a day 1 tablet as needed 8h August, Not-Taking Womens One Daily - Active PredniSONE 5 MG (21) Orally Once a day take each days dose at one time each day. 24h Sep, Active Valium 5 mg Orally Twice a day, for procedure 1 tablet as needed August, Not-Taking Synthroid 50 mcg Orally Once a day 1 tablet on an empty stomach in the morning 24h August, Active RESULTS No Results PROCEDURES No Known procedures [...] harming, suicide ideat and attempts. [facility] 2006 Hospitalization History left foot swollen, [facility]
--- OUTSIDE RECORDS SUMMARY | 2017-12-24 02:43 | XMS REPORT ---
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 Name Role Phone CORINNE BERGER Unavailable PROBLEMS Type Condition ICD9-CM Code UDZ21-LT Code Onset Dates Condition Status SNOMED Code Problem Lumbago with sciatica, left side M54.42 Active 032547090 Problem Other chronic pain G89.29 Active 86472369 Problem Lumbago with sciatica, right side M54.41 Active 555147546031275 Problem Fibrocystic changes of left breast N60.12 Active 86667853 Problem Panic disorder with agoraphobia F40.01 Active 54359576 Problem 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 Active [id number] Problem COPD (chronic obstructive pulmonary disease) J44.9 Active 41822718 Problem Bipolar disease, chronic F31.9 Active 77989603 Problem Morbid (severe) obesity due to excess calories E66.01 Active 09728247008403 Problem Body mass index (BMI) of 40.0-44.9 in adult Z68.41 Active 941011744 Problem Right sciatic nerve pain M54.31 Active 55981500 Problem Depressive disorder, not elsewhere classified F32.9 Active 94915015 Problem Acquired hypothyroidism E03.9 Active 392123801 Problem Pre-diabetes R73.03 Active 120476101 Problem Degenerative joint disease M19.90 Active 581039666 Problem Chronic pain G89.29 Active 70304353 Problem Methamphetamine use disorder, severe, 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 Active 12873591 Problem Opioid use disorder, moderate, dependence F11.20 Active 66230319 Problem Cigarette nicotine dependence without complication F17.210 Active 73926878 Problem Psychosis, unspecified psychosis type F29 Active 71622700 Problem Xanax use disorder, moderate F13.20 Active 559748651 Problem Personality disorder F60.9 Active 44138354 ALLERGIES No Information ENCOUNTERS Encounter Location Date Diagnosis [facility] [address], [place] [address] Dec, [facility] [id number] [place] [address] 81270- 9637 Dec, [facility] [id number] [place] [address] 17617- 1714 Dec, [facility] [id number] [place] [address] 52425- 5511 Oct, Breast pain N64.4 ; Fibrocystic changes of left breast N60.12 and Bilateral otitis media with effusion H65.93 [facility] [id number] [place] [address] 10746 -7836 Sep, 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 [place] [id number] [place] [address] 55221- 9900 Sep, [place] [id number] [place] [address] 42461- 9844 Sep, Methamphetamine use disorder, severe, 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 ; Psychosis, unspecified psychosis type F29 ; Personality disorder F60.9 ; Opioid use disorder, moderate, dependence F11.20 ; Xanax use disorder, moderate F13.20 and BMI 40.0-44.9, adult Z68.41 [place] [id number] [place] [address] 82591- 0784 Sep, Depressive disorder, not elsewhere classified F32.9 and Psychosis, unspecified psychosis type F29 [facility] [id number] [place] [address] 12438- 8014 August, [place] [id number] [place] [address] 80917- 0246 August, Depressive disorder, not elsewhere classified F32.9 and Psychosis, unspecified psychosis type F29 [place] [id number] [place] [address] 64587- 0356 August, [place] [id number] [place] [address] 29765- 0224 August, Lumbago with sciatica, right side M54.41 and Other chronic pain G89.29 [facility] [id number] [place] [address] 25082 -6440 Jul, Right sciatic nerve pain M54.31 [facility] [address] 24968- 7676 Jul, Acquired hypothyroidism E03.9 [place] [address] 62940- 5216 Jul, Depressive disorder, not elsewhere classified F32.9 and Psychosis, unspecified psychosis type F29 [place] [address] 71102- 2118 Jul, Acquired hypothyroidism E03.9 ; Lumbago with sciatica, right side M54.41 and Lumbar radiculopathy, acute M54.16 [place] [id number] [place] [address] 38737- 4894 Jul, Methamphetamine use disorder, severe, 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 ; Psychosis, unspecified psychosis type F29 ; Personality disorder F60.9 ; Opioid use disorder, moderate, dependence F11.20 ; Xanax use disorder, moderate F13.20 and BMI 40.0-44.9, adult Z68.41 [place] [id number] [place] [address] 10943- 3208 Jun, Methamphetamine use disorder, severe, 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 ; Psychosis, unspecified psychosis type F29 ; Personality disorder F60.9 ; Opioid use disorder, moderate, dependence F11.20 and Xanax use disorder, moderate F13.20 [place] [id number] [place] [address] 36281- 9008 Jun, Depressive disorder, not elsewhere classified F32.9 and Psychosis, unspecified psychosis type F29 [place] [address] 73906- 5651 Jun, Lumbar radiculopathy, acute M54.16 [place] [id number] [place] [address] 60993- 0138 Jun, Lumbar radiculopathy, acute M54.16 ; Strain of abdominal wall, initial encounter S39.011A and BMI 40.0-44.9, adult Z68.41 [place] [address] 28629- 9947 Jun, [place] [address] 30529- 2160 May, [place] [address] 31983- 7678 May, Methamphetamine use disorder, severe, 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 ; Psychosis, unspecified psychosis type F29 ; Personality disorder F60.9 ; Opioid use disorder, moderate, dependence F11.20 and Xanax use disorder, moderate F13.20 [place] [address] 18618- 2356 May, [place] [address] 75137- 0540 May, [place] [address] 40447- 2299 May, Lumbago with sciatica, left side M54.42 ; Lumbago with sciatica, right side M54.41 ; Other chronic pain G89.29 ; Weight gain R63.5 ; Acquired hypothyroidism E03.9 and BMI 40.0-44.9, adult Z68.41 [place] [address] 80043- 9318 Apr, Cigarette nicotine dependence without complication F17.210 [place] [address] 71147- 7484 18 Apr, 2017 Acute bilateral low back pain without sciatica M54.5 [place] [address] [place] [address]- 3962 Apr, Methamphetamine use disorder, severe, 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 ; Psychosis, unspecified psychosis type F29 ; Personality disorder F60.9 ; Opioid use disorder, moderate, dependence F11.20 and Xanax use disorder, moderate F13.20 [facility] [address] [address]15 -3471 Apr, Wheezing R06.2 and Bronchitis J40 [place] [address] 54077- 3419 Apr, Bronchitis J40 ; Cigarette nicotine dependence without complication F17.210 and Bipolar disease, chronic F31.[address] 79334- 2592 Mar, Acquired hypothyroidism E03.[address] 60995- 0881 Mar, Acquired hypothyroidism E03.[address] 63633- 0709 Mar, Orthostatic hypotension I95.1 and Non-intractable vomiting with nausea, unspecified vomiting type R11.[address] 46494- 6870 Mar, Strain of lumbar region, initial encounter S39.012A [address] 52937- 5927 Mar, [facility] [address] 40512 -9514 Mar, Bronchitis J40 [address] 95513- 3192 Mar, Degenerative joint disease M19.90 ; Elevated LFTs R79.89 ; Adenopathy R59.1 ; Drug use F19.90 ; Pre-diabetes R73.03 and COPD (chronic obstructive pulmonary disease) J44.9 [facility] [address] [place] [address] 33857 -5690 30 Feb, 2017 Left hand pain M79.642 and Contusion of left hand, initial encounter S60.222A [place] [address] 46713- 2638 07 Feb, 2017 Body aches R52 and Flu-like symptoms R68.89 [place] [address] 78550- 6647 Jan, [address] 56160- 5900 Jan, Bipolar disease, chronic F31.9 ; Acquired hypothyroidism E03.9 and Encounter for immunization Z23 [facility] [address] [place] [id number] [place] [address] 31562 -1491 05 Dec, 2016 Crushing injury of left wrist and hand, initial encounter S67.42XA [address] 36101- 5968 Sep, [address] 61480- 4292 Sep, Bipolar disease, chronic F31.9 ; Panic disorder with agoraphobia F40.01 and Proteinuria, unspecified type R80.9 [place] [id number] [place] [address] 99275- 3060 August, [address] 71934- 7770 August, Degenerative joint disease M19.90 ; Left-sided chest wall pain R07.89 ; Bipolar disease, chronic F31.9 ; Type 2 diabetes mellitus without complication, without long-term current use of insulin E11.9 ; Acquired hypothyroidism E03.9 and Acute cystitis without hematuria N30.00 [place] [id number] [place] [address] 78105- 6287 Mar, [address] 33455- 0137 Feb, [facility] [address] [place] [address] 90535 -7769 Feb, Right hand pain M79.641 [facility] [id number] [place] [address] 81029 -8270 Feb, Bronchitis J40 ; Acute non-recurrent pansinusitis J01.40 and Seasonal allergic rhinitis due to other allergic trigger J30.89 [facility] [id number] [place] [address] 91417- 3393 Dec, [facility] [id number] [place] [address] 24121 -8765 Mar, Left-sided chest wall pain R07.89 and Chronic pain G89.29 [facility] [id number] [place] [address] 77391- 2861 Jul, [facility] [id number] [place] [address] 53393- 5347 Jul, [facility] [id number] [place] [address] 24631- 0155 May, [facility] [id number] [place] [address] 00499- 3710 May, [facility] [address] [place] [address] 20650- 6176 Apr, [facility] [id number] [place] [address] 00322- 3900 Apr, [facility] [id number] [place] [address] 51284- 0766 Mar, [facility] [id number] [place] [address] 83737- 2616 Mar, [facility] [id number] [place] [address] 91487- 2436 Feb, [facility] [id number] [place] [address], [place] [address]- 0669 06 Feb, 2014 [facility] [place] [facility] [address] [id number] [place] [address]- 8013 28 Jan, 2014 [facility] [place] [facility] [address] [id number] [place] [address]- 2965 28 Jan, 2014 [facility] [place] [facility] [address] [id number] [place] [address]- 3022 28 Jan, 2014 [facility] [place] [facility] [address] [id number] [place] [address]- 2254 28 Jan, 2014 [facility] [place] [facility] [address] [id number] [place] [address]- 8998 15 Jan, 2014 [facility] [place] [facility] [address] [id number] [place] [address]- 7120 15 Jan, 2014 [facility] [place] [facility] [address] [id number] [place] [address]- 8467 19 Dec, 2013 [facility] [place] [facility] [address] [id number] [place] [address]- 7615 19 Sep, 2013 [facility] [place] [facility] [address] [id number] [place] [address]- 7527 19 Dec, 2013 [facility] [place] [facility] [address] [facility] [id number] [place] [address]- 2577 19 Sep, 2013 [facility] [place] [facility] [address] [id number] [place] [address]- 8153 18 Sep, 2013 [facility] [place] [facility] [address] [id number] [place] [address]- 2545 18 Sep, 2013 [facility] [place] [facility] [address] [id number] [place] [address]- 8248 16 Sep, 2013 [facility] [place] [facility] [address] [id number] [place] [address]- 7602 16 Sep, 2013 [facility] [place] [facility] [address] [facility] [id number] [place] [address]- 3172 17 Sep, 2013 [facility] [place] [facility] [address] [id number] [place] [address]- 6741 Sep, [facility] [place] [facility] [address] [id number] [place] [address]- 7779 Jul, [facility] [place] [facility] [address] [id number] [place] [address]- 5031 Jul, [facility] [place] [facility] [address] [id number] [place] [address]- 0139 Jul, [facility] [place] [facility] [address] [id number] [place] [address]- 6667 Jul, [facility] [place] [facility] [address] [id number] [place] [address]- 7607 Jul, [facility] [place] [facility] [address] [id number] [place] [address]- 3367 Jul, [facility] [place] [facility] [address] [id number] [place] [address]- 6080 Jul, [facility] [place] [facility] [address] [id number] [place] [address]- 4344 Jul, [facility] [place] [facility] [address] [id number] [place] [address]- 3737 Jun, [facility] [place] [facility] [address] [id number] [place] [address]- 7232 Jun, [facility] [place] [facility] [address] [id number] [place] [address]- 5251 May, [facility] [place] [facility] [address] [id number] [place] [address]- 0649 May, [facility] [place] [facility] [address] [id number] [place] [address]- 4834 May, [facility] [place] [facility] [address] [id number] [place] [address]- 0741 May, [facility] [place] [facility] [address] [id number], [place] [address]- 1187 Apr, [facility] [place] [facility] [address] [id number] [place] [address]- 5750 Apr, [facility] [place] [facility] [address] [id number] [place] [address]- 1496 Mar, [facility] [place] [facility] [address] [id number] [place] [address]- 2941 Mar, [facility] [place] [facility] [address] [id number] [place] [address]- 0505 Feb, [facility] [place] [facility] [address] [id number] [place] [address]- 3782 Feb, [facility] [place] [facility] [address] [id number] [place] [address]- 3003 Feb, [facility] [place] [facility] [address] [id number] [place] [address]- 9592 Feb, [facility] [place] [facility] [address] [id number] [place] [address]- 7597 Jan, [facility] [place] [facility] [address] [id number], [place] [address]- 1453 Jan, [facility] [place] [facility] [address] [id number], [place] [address]- 5577 Jan, [facility] [place] [facility] [address] [id number], [place] [address]- 2981 Jan, [facility] [place] [facility] [address] [id number], [place] [address]- 2114 Jan, [facility] [place] [facility] [address] [id number], [place] [address]- 2278 Dec, [facility] [place] [facility] [address] [id number] 1062 Dec, [facility] [place] [facility] [address] [id number] [place] [address]- 2686 Nov, [facility] [place] [facility] [address] [id number] [place] [address]- 2546 Sep, [facility] [address] [id number] [place] [address]- 5074 August, [facility] [address] [id number] [place] [address]- 2546 August, [facility] [address] [id number] [place] [address]- 5016 Jul, [facility] [address] [id number] [place] [address]- 8073 Jul, [facility] [address] [id number] [place] [address]- 5176 Jul, [facility] [address] [id number] [place] [address]- 4566 Jul, [facility] [address] [id number] [place] [address]- 5530 Jul, [facility] [address] [id number] [place] [address]- 3958 Jul, [facility] [address] [id number] [place] [address]- 4553 Jul, [facility] [address] [id number] [place] [address]- 6313 Jun, [facility] [address] [id number] [place] [address]- 2546 Jun, [facility] [address] [id number] [place] [address]- 2546 May, [facility] [place] [facility] [address] [id number] [place] [address]- 2546 Apr, [facility] [place] [facility] [address] [id number] [place] [address]- 2546 Apr, [facility] [address] [id number] [place] [address]- 4385 Mar, [facility] [place] [facility] [address] [id number] [place] [address]- 3576 Mar, [facility] [place] [facility] [address] [id number] [place] [address]- 2654 Mar, [facility] [place] [facility] [address] [id number] [place] [address]- 3868 Feb, [facility] [place] [facility] [address] [id number] [place] [address]- 4247 Feb, [facility] [place] [facility] [address] [id number] [place] [address]- 7105 Feb, [facility] [place] [facility] [address] [id number] [place] [address]- 1574 Feb, [facility] [place] [facility] [address] [id number] [place] [address]- 7814 Feb, [facility] [place] [facility] [address] [id number] [place] [address]- 2099 Feb, [facility] [place] [facility] [address] [id number] [place] [address]- 9927 16 Feb, 2012 [facility] [place] [facility] [address] [id number] [place] [address]- 3165 16 Feb, 2012 [facility] [place] [facility] [address] [id number], [place] [address]- 1012 14 Feb, 2012 [facility] [place] [facility] [address] [id number], [place] [address]- 0543 08 Feb, 2012 [facility] [place] [facility] [address] [id number] [place] [address]- 3206 Feb, [facility] [place] [facility] [address] [id number], [place] [address]- 7584 27 Dec, 2011 [facility] [place] [facility] [address] [id number], [place] [address]- 1148 07 Dec, 2011 [facility] [place] [facility] [address] [id number] [place] [address]- 5839 Nov, [facility] [place] [facility] [address] [id number] [place] [address]- 6081 Nov, [facility] [place] [facility] [address] [id number] [place] [address]- 1427 Oct, [facility] [place] [facility] [address] [id number] [place] [address]- 5669 Oct, [facility] [place] [facility] [address] [id number] [place] [address]- 7728 Sep, [facility] [place] [facility] [address] [id number] [place] [address]- 5849 May, [facility] [place] [facility] [address] [id number] [place] [address]- 3286 May, [facility] [place] [facility] [address] [id number] [place] [address]- 1240 May, [facility] [place] [facility] [address] [id number] [place] [address]- 4389 Apr, [facility] [place] [facility] [address] [id number] [place] [address]- 7804 Mar, [facility] [place] [facility] [address] [facility] [id number] [place] [address]- 3284 Mar, [facility] [place] [facility] [address] [id number] [place] [address]- 8712 Feb, [facility] [place] [facility] [address] [id number] [place] [address]- 6878 Feb, [facility] [place] [facility] [address] [id number] [place] [address]- 3916 Feb, [facility] [place] [facility] [address] [id number] [place] [address] 2546 Jan, [facility] [place] [facility] [address] [id number] [place] [address]- 0196 Jan, [facility] [address] [id number] [address]- 2276 19 Dec, 2010 [facility] [address] [address] 2546 Mar, [facility] [address] [address] 2546 Feb, [facility] [address] [address] 2546 Feb, [facility] [address] [address]- 2546 Feb, [facility] [address], [place] [address]- 9506 Jan, [facility] [address] [address]- 2546 16 Dec, 2008 [facility] [address], [place] [address]- 9876 Nov, [facility] [address], [place] [address]- 7059 Sep, [facility] [address], [place] [address]- 6096 August, [facility] [address], [place] [address] 2546 May, [facility] [address], [place] [address] 2546 Mar, IMMUNIZATIONS No Known Immunizations SOCIAL HISTORY Never Assessed REASON FOR VISIT PLAN OF CARE VITAL SIGNS MEDICATIONS Unknown Medications RESULTS No Results PROCEDURES No Known procedures [...] suicide ideat and attempts. [facility] [place] last around 2006 Hospitalization History left foot swollen, stepped in [facility] ER 05/02/17
--- OUTSIDE RECORDS SUMMARY | 2017-12-24 02:43 | XMS REPORT ---
Author Author CORINNE BERGER Organization [facility] Address [address] [place] [address] Care Team Providers Care Event Coordinator Name Role Phone CORINNE BERGER Unavailable PROBLEMS Type Condition ICD9-CM Code OAU70-ON Code Onset Dates Condition Status SNOMED Code Problem Lumbago with sciatica, left side M54.42 Active 012389448 Problem Other chronic pain G89.29 Active 67813482 Problem Lumbago with sciatica, right side M54.41 Active [id number] Problem Fibrocystic changes of left breast N60.12 Active 29503550 Problem Panic disorder with agoraphobia F40.01 Active 21426705 Problem 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 Active [id number] Problem COPD (chronic obstructive pulmonary disease) J44.9 Active 56187323 Problem Bipolar disease, chronic F31.9 Active 91454710 Problem Morbid (severe) obesity due to excess calories E66.01 Active 21164514231927 Problem Body mass index (BMI) of 40.0-44.9 in adult Z68.41 Active 630743399 Problem Right sciatic nerve pain M54.31 Active 52442123 Problem Depressive disorder, not elsewhere classified F32.9 Active 31005575 Problem Acquired hypothyroidism E03.9 Active 039860202 Problem Pre-diabetes R73.03 Active 411356958 Problem Degenerative joint disease M19.90 Active 650428899 Problem Chronic pain G89.29 Active 17860902 Problem Methamphetamine use disorder, severe, 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 Active 71957470 Problem Opioid use disorder, moderate, dependence F11.20 Active 80768840 Problem Cigarette nicotine dependence without complication F17.210 Active 39357730 Problem Psychosis, unspecified psychosis type F29 Active 77002564 Problem Xanax use disorder, moderate F13.20 Active 820841294 Problem Personality disorder F60.9 Active 46340874 ALLERGIES No Information ENCOUNTERS Encounter Location Date Diagnosis [facility] [id number] [place] [address] 93250- 3036 Dec, [place] [id number] [place] [address] 81211- 1717 Oct, Breast pain N64.4 ; Fibrocystic changes of left breast N60.12 and Bilateral otitis media with effusion H65.93 [facility] [id number] [place] [address] 02813 -0880 Sep, 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 [place] [id number] [place] [address] 07799- 4541 Sep, [place] [address] 50768- 4097 Sep, Methamphetamine use disorder, severe, 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 ; Psychosis, unspecified psychosis type F29 ; Personality disorder F60.9 ; Opioid use disorder, moderate, dependence F11.20 ; Xanax use disorder, moderate F13.20 and BMI 40.0-44.9, adult Z68.41 [place] [id number] [place] [address] 12155- 2997 Sep, Depressive disorder, not elsewhere classified F32.9 and Psychosis, unspecified psychosis type F29 [place] [id number] [place] [address] 97014- 7795 August, [place] [id number] [place] [address] 26106- 2382 August, Depressive disorder, not elsewhere classified F32.9 and Psychosis, unspecified psychosis type F29 [place] [id number] [place] [address] 12021- 3576 August, [place] [id number] [place] [address] 78483- 6203 August, Lumbago with sciatica, right side M54.41 and Other chronic pain G89.29 [facility] [id number] [place] [address] 98776 -0024 Jul, Right sciatic nerve pain M54.31 [place] [id number] [place] [address] 70563- 9990 Jul, Acquired hypothyroidism E03.9 [place] [id number] [place] [address] 12447- 5608 Jul, Depressive disorder, not elsewhere classified F32.9 and Psychosis, unspecified psychosis type F29 [place] [id number] [place] [address] 31049- 9425 Jul, Acquired hypothyroidism E03.9 ; Lumbago with sciatica, right side M54.41 and Lumbar radiculopathy, acute M54.16 [place] [id number] [place] [address] 54176- 1925 Jul, Methamphetamine use disorder, severe, 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 ; Psychosis, unspecified psychosis type F29 ; Personality disorder F60.9 ; Opioid use disorder, moderate, dependence F11.20 ; Xanax use disorder, moderate F13.20 and BMI 40.0-44.9, adult Z68.41 [place] [id number] [place] [address] 58030- 2459 Jun, Methamphetamine use disorder, severe, 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 ; Psychosis, unspecified psychosis type F29 ; Personality disorder F60.9 ; Opioid use disorder, moderate, dependence F11.20 and Xanax use disorder, moderate F13.20 [place] [id number] [place] [address] 42345- 6322 Jun, Depressive disorder, not elsewhere classified F32.9 and Psychosis, unspecified psychosis type F29 [place] [id number] [place] [address] 44859- 8996 Jun, Lumbar radiculopathy, acute M54.16 [place] [id number] [place] [address] 69934- 5000 Jun, Lumbar radiculopathy, acute M54.16 ; Strain of abdominal wall, initial encounter S39.011A and BMI 40.0-44.9, adult Z68.41 [place] [id number] [place] [address] 48697- 4901 Jun, [place] [id number] [place] [address] 79771- 3299 May, [place] [address] 773800- 1628 May, Methamphetamine use disorder, severe, 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 ; Psychosis, unspecified psychosis type F29 ; Personality disorder F60.9 ; Opioid use disorder, moderate, dependence F11.20 and Xanax use disorder, moderate F13.20 [place] [id number] [place] [address] 56615- 4826 May, [place] [id number] [place] [address] 19695- 2176 May, [place] [id number] [place] [address] 56344- 7360 May, Lumbago with sciatica, left side M54.42 ; Lumbago with sciatica, right side M54.41 ; Other chronic pain G89.29 ; Weight gain R63.5 ; Acquired hypothyroidism E03.9 and BMI 40.0-44.9, adult Z68.41 [place] [id number] [place] [address] 00071- 4118 Apr, Cigarette nicotine dependence without complication F17.210 [place] [id number] [place] [address] 23489- 4763 Apr, Acute bilateral low back pain without sciatica M54.5 [place] [id number] [place] [address] 32282- 2058 Apr, Methamphetamine use disorder, severe, 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 ; Psychosis, unspecified psychosis type F29 ; Personality disorder F60.9 ; Opioid use disorder, moderate, dependence F11.20 and Xanax use disorder, moderate F13.20 [facility] [id number] [place] [address] 02755 -1865 Apr, Wheezing R06.2 and Bronchitis J40 [place] [address] 73245- 2651 02 Apr, 2017 Bronchitis J40 ; Cigarette nicotine dependence without complication F17.210 and Bipolar disease, chronic F31.9 [place] [address] 27304- 4321 Mar, Acquired hypothyroidism E03.9 [place] [address] 41022- 0266 Mar, Acquired hypothyroidism E03.9 [place] [address] 58565- 7101 Mar, Orthostatic hypotension I95.1 and Non-intractable vomiting with nausea, unspecified vomiting type R11.2 [place] [address] 45308- 2111 Mar, Strain of lumbar region, initial encounter S39.012A [place] [address] 15130- 3465 Mar, [facility] WALK IN [place] [address] 67447 -1690 07 Mar, 2017 Bronchitis J40 [place] [address] 50652- 8685 05 Mar, 2017 Degenerative joint disease M19.90 ; Elevated LFTs R79.89 ; Adenopathy R59.1 ; Drug use F19.90 ; Pre-diabetes R73.03 and COPD (chronic obstructive pulmonary disease) J44.9 [facility]ALK IN [place] [address] 76964 -6509 Feb, Left hand pain M79.642 and Contusion of left hand, initial encounter S60.222A [place] [address] 87650- 5205 Feb, Body aches R52 and Flu-like symptoms R68.89 [place] [id number] [place] [address] 83900- 8037 Jan, [place] [id number] [place] [address] 07126- 2071 Jan, Bipolar disease, chronic F31.9 ; Acquired hypothyroidism E03.9 and Encounter for immunization Z23 [facility] [id number] [place] [address] 43913 -2997 05 Dec, 2016 Crushing injury of left wrist and hand, initial encounter S67.42XA [place] [id number] [place] [address] 06837- 7078 Sep, [place] [id number] [place] [address] 38441- 2088 Sep, Bipolar disease, chronic F31.9 ; Panic disorder with agoraphobia F40.01 and Proteinuria, unspecified type R80.9 [place] [id number] [place] [address] 55065- 5373 August, [place] [id number] [place] [address] 71569- 6745 August, Degenerative joint disease M19.90 ; Left-sided chest wall pain R07.89 ; Bipolar disease, chronic F31.9 ; Type 2 diabetes mellitus without complication, without long-term current use of insulin E11.9 ; Acquired hypothyroidism E03.9 and Acute cystitis without hematuria N30.00 [place] [id number] [place] [address] 05458- 2196 Mar, [place] [id number] [place] [address] 96771- 9099 Feb, [facility] [id number] [place] [address] 44473 -7368 Feb, Right hand pain M79.641 [facility] [id number] [address]0803 Feb, Bronchitis J40 ; Acute non-recurrent pansinusitis J01.40 and Seasonal allergic rhinitis due to other allergic trigger J30.89 [facility] [id number] [address]- 4861 29 Dec, 2015 [facility] [id number] [place] [address] 12733 -4564 Mar, Left-sided chest wall pain R07.89 and Chronic pain G89.29 [facility] [id number] [place] [address] 78504- 4591 Jul, [facility] [id number] [place] [address] 35572- 6786 Jul, [facility] [id number] [place] [address] 53200- 0833 May, [facility] [id number] [place] [address] 56523- 8091 May, [facility] [id number] [place] [address] 84128- 7520 Apr, [facility] [id number] [place] [address] 54817- 9920 Apr, [facility] [address] [address]- 5519 Mar, [facility] [id number] [place] [address] 50699- 9357 Mar, [facility] [id number] [place] [address] 44436- 9254 Feb, [facility] [id number] [place] [address] 45344- 0960 Feb, [facility] [id number] [place] [address] 12565- 9354 Jan, [facility] [id number] [place] [address], [place] [address]- 9650 28 Jan, 2014 [facility] [place] [facility] [address] [id number] [place] [address]- 2742 28 Jan, 2014 [facility] [place] [facility] [address] [id number] [place] [address]- 7568 28 Jan, 2014 [facility] [place] [facility] [address] [id number] [place] [address]- 4122 15 Jan, 2014 [facility] [place] [facility] [address] [id number] [place] [address]- 6367 15 Jan, 2014 [facility] [place] [facility] [address] [id number] [place] [address]- 9873 19 Dec, 2013 [facility] [place] [facility] [address] [id number] [place] [address]- 8666 19 Dec, 2013 [facility] [place] [facility] [address] [id number] [place] [address]- 3579 19 Dec, 2013 [facility] [place] [facility] [address] [id number] [place] [address]- 4280 19 Dec, 2013 [facility] [place] [facility] [address] [id number] [place] [address]- 3572 18 Dec, 2013 [facility] [place] [facility] [address] [facility] [id number] [place] [address]- 0518 18 Dec, 2013 [facility] [place] [facility] [address] [id number] [place] [address]- 8602 16 Dec, 2013 [facility] [place] [facility] [address] [id number], [place] [address]- 2545 16 Dec, 2013 [facility] [place] [facility] [address] [id number] [place] [address]- 8211 17 Sep, 2013 [facility] [place] [facility] [address] [id number] [place] [address]- 1361 17 Sep, 2013 [facility] [place] [facility] [address] [facility] [id number] [place] [address]- 8412 15 Jul, 2013 [facility] [place] [facility] [address] [id number] [place] [address]- 1406 Jul, [facility] [place] [facility] [address] [id number] [place] [address]- 6598 Jul, [facility] [place] [facility] [address] [id number] [place] [address]- 9008 Jul, [facility] [place] [facility] [address] [id number] [place] [address]- 5593 Jul, [facility] [place] [facility] [address] [id number] [place] [address]- 1884 Jul, [facility] [place] [facility] [address] [id number] [place] [address]- 6381 Jul, [facility] [place] [facility] [address] [id number] [place] [address]- 1872 Jul, [facility] [place] [facility] [address] [id number] [place] [address]- 7529 Jun, [facility] [place] [facility] [address] [id number] [place] [address]- 8154 Jun, [facility] [place] [facility] [address] [id number] [place] [address]- 2981 May, [facility] [place] [facility] [address] [id number] [place] [address]- 0289 May, [facility] [place] [facility] [address] [id number] [place] [address]- 4154 May, [facility] [place] [facility] [address] [id number] [place] [address]- 2430 May, [facility] [place] [facility] [address] [id number] [place] [address]- 5584 Apr, [facility] [place] [facility] [address] [id number] [place] [address]- 8211 Apr, [facility] [place] [facility] [address] [id number], [place] [address]- 2116 Mar, [facility] [place] [facility] [address] [id number] [place] [address]- 3076 Mar, [facility] [place] [facility] [address] [id number], [place] [address]- 9117 Feb, [facility] [place] [facility] [address] [id number] [place] [address]- 3658 Feb, [facility] [place] [facility] [address] [id number] [place] [address]- 3793 Feb, [facility] [place] [facility] [address] [id number] [place] [address]- 8577 Feb, [facility] [place] [facility] [address] [id number] [place] [address]- 8949 Jan, [facility] [place] [facility] [address] [facility] [id number], [place] [address]- 2985 Jan, [facility] [place] [facility] [address] [id number] [place] [address]- 6792 Jan, [facility] [place] [facility] [address] [id number], [place] [address]- 9128 Jan, [facility] [place] [facility] [address] [id number], [place] [address]- 3849 Jan, [facility] [place] [facility] [address] [id number], [place] [address]- 0342 Dec, [facility] [place] [facility] [address] [id number], [place] [address]- 9934 Dec, [facility] [place] [facility] [address] [id number], [place] [address]- 6257 Nov, [facility] [place] [facility] [address] [id number], [place] [address]- 7767 Sep, [facility] [place] [facility] [address] [id number] [place] [address]- 9448 August, [facility] [place] [facility] [address] [id number] [place] [address]- 2546 August, [facility] [address] [id number] [place] [address]- 5874 Jul, [facility] [address] [id number] [place] [address]- 2546 Jul, [facility] [address] [id number] [place] [address]- 9186 Jul, [facility] [address] [id number] [place] [address]- 2546 Jul, [facility] [address] [id number] [place] [address]- 7135 Jul, [facility] [address] [id number] [place] [address]- 4986 Jul, [facility] [address] [id number] [place] [address]- 9962 Jul, [facility] [address] [id number] [place] [address]- 4470 Jun, [facility] [address] [id number] [place] [address]- 3876 Jun, [facility] [address] [id number] [place] [address]- 9723 May, [facility] [address] [id number] [place] [address]- 2411 Apr, [facility] [address] [id number] [place] [address]- 7134 Apr, [facility] [address] [id number] [place] [address]- 7486 Mar, [facility] [address] [id number] [place] [address]- 3106 Mar, [facility] [address] [id number] [place] [address]- 3060 Mar, [facility] [place] [facility] [address] [id number] [place] [address]- 0837 Feb, [facility] [place] [facility] [address] [id number] [place] [address]- 6769 Feb, [facility] [place] [facility] [address] [id number] [place] [address]- 7456 Feb, [facility] [place] [facility] [address] [id number] [place] [address]- 3807 Feb, [facility] [place] [facility] [address] [id number] [place] [address]- 4358 Feb, [facility] [place] [facility] [address] [id number] [place] [address]- 8978 Feb, [facility] [place] [facility] [address] [id number] [place] [address]- 8756 Feb, [facility] [place] [facility] [address] [id number] [place] [address]- 5657 16 Feb, 2012 [facility] [place] [facility] [address] [id number] [place] [address]- 4314 14 Feb, 2012 [facility] [place] [facility] [address] [id number] [place] [address]- 2306 Feb, [facility] [place] [facility] [address] [id number], [place] [address]- 0372 Feb, [facility] [place] [facility] [address] [id number], [place] [address]- 4163 27 Dec, 2011 [facility] [place] [facility] [address] [id number] [place] [address]- 0933 07 Dec, 2011 [facility] [place] [facility] [address] [id number], [place] [address]- 3759 30 Nov, 2011 [facility] [place] [facility] [address] [id number] [place] [address]- 7096 Nov, [facility] [place] [facility] [address] [id number] [place] [address]- 3202 Oct, [facility] [address] [id number] [place] [address]- 0408 Oct, [facility] [place] [facility] [address] [id number] [place] [address]- 8416 Sep, [facility] [place] [facility] [address] [id number] [place] [address]- 1376 May, [facility] [place] [facility] [address] [id number] [place] [address]- 5826 May, [facility] [place] [facility] [address] [id number] [place] [address]- 5134 May, [facility] [place] [facility] [address] [id number] [place] [address]- 9681 Apr, [facility] [place] [facility] [address] [id number] [place] [address]- 2383 Mar, [facility] [place] [facility] [address] [id number] [place] [address]- 2369 Mar, [facility] [place] [facility] [address] [id number] [place] [address]- 8671 Feb, [facility] [place] [facility] [address] [id number] [place] [address]- 9649 Feb, [facility] [place] [facility] [address] [id number] [place] [address]- 2144 Feb, [facility] [place] [facility] [address] [id number] [place] [address]- 5859 Jan, [facility] [place] [facility] [address] [id number] [place] [address] Jan, [facility] [place] [facility] [address] [id number] [place] [address] Dec, [facility] [place] [facility] [address] [id number] [place] [address] Mar, [facility] [id number] [address] Feb, [facility] [id number] [address] Feb, [facility] [id number], [place] [address] Feb, [facility] [id number], [place] [address] Jan, [facility] [id number], [place] [address] Dec, [facility] [id number] [address] Nov, [facility] [id number] [place] [address] Sep, [facility] [id number] [address] August, [facility] [id number], [place] [address] May, [facility] [id number], [place] [address] Mar, IMMUNIZATIONS No Known Immunizations SOCIAL HISTORY Never Assessed REASON FOR VISIT referral PLAN OF CARE VITAL SIGNS MEDICATIONS Unknown [...] suicide ideat and attempts. Rios Shepherd, Lacie, [facility] last around 2006 [facility]
--- OUTSIDE RECORDS SUMMARY | 2017-12-24 02:43 | XMS REPORT ---
Author Author YAIMA PEREA Organization [facility] Address [address] [place] [address] Care Team Providers Care Piano Professor Name Role Phone YAIMA PEREA Unavailable PROBLEMS Type Condition ICD9-CM Code BTX78-DJ Code Onset Dates Condition Status SNOMED Code Problem Lumbago with sciatica, left side M54.42 Active 886052757 Problem Other chronic pain G89.29 Active 34421340 Problem Lumbago with sciatica, right side M54.41 Active [id number] Problem Fibrocystic changes of left breast N60.12 Active 23138919 Problem Panic disorder with agoraphobia F40.01 Active 12737552 Problem 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 Active [id number] Problem COPD (chronic obstructive pulmonary disease) J44.9 Active 61798687 Problem Bipolar disease, chronic F31.9 Active 99629238 Problem Morbid (severe) obesity due to excess calories E66.01 Active 23522302177334 Problem Body mass index (BMI) of 40.0-44.9 in adult Z68.41 Active 696794438 Problem Right sciatic nerve pain M54.31 Active 23803173 Problem Depressive disorder, not elsewhere classified F32.9 Active 05406070 Problem Acquired hypothyroidism E03.9 Active 969645196 Problem Pre-diabetes R73.03 Active 928913906 Problem Degenerative joint disease M19.90 Active 524953821 Problem Chronic pain G89.29 Active 57716226 Problem Methamphetamine use disorder, severe, 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 Active 08927960 Problem Opioid use disorder, moderate, dependence F11.20 Active 60506741 Problem Cigarette nicotine dependence without complication F17.210 Active 57051023 Problem Psychosis, unspecified psychosis type F29 Active 83366433 Problem Xanax use disorder, moderate F13.20 Active 772033602 Problem Personality disorder F60.9 Active 28185534 ALLERGIES No Information ENCOUNTERS Encounter Location Date Diagnosis [facility] [address], [place] [address] Dec, [facility] [id number] [place] [address] 56257- 4198 Dec, [facility] [id number] [place] [address] 20733- 5543 Dec, [facility] [id number] [place] [address] 56134- 9989 Oct, Breast pain N64.4 ; Fibrocystic changes of left breast N60.12 and Bilateral otitis media with effusion H65.93 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 ; Psychosis, unspecified psychosis type F29 ; Personality disorder F60.9 ; Opioid use disorder, moderate, dependence F11.20 ; Xanax use disorder, moderate F13.20 and BMI 40.0-44.9, adult Z68.41 [facility] [address], [place] [address] Sep, Depressive disorder, not elsewhere classified F32.9 and Psychosis, unspecified psychosis type F29 [facility] [id number] [place] [address] 98862- 8305 August, [facility] [id number] [place] [address] 83528- 0357 August, Depressive disorder, not elsewhere classified F32.9 and Psychosis, unspecified psychosis type F29 [facility] [id number] [place] [address] 55339- 5699 August, [facility] [id number] [place] [address] 65082- 7938 August, Lumbago with sciatica, right side M54.41 and Other chronic pain G89.29 [facility] [id number] [place] [address] 34825 -7624 Jul, Right sciatic nerve pain M54.31 [facility] [address] [address]13- 0919 Jul, Acquired hypothyroidism E03.9 [place] [address] 39812- 8708 Jul, Depressive disorder, not elsewhere classified F32.9 and Psychosis, unspecified psychosis type F29 [place] [id number] [place] [address] 63957- 2724 Jul, Acquired hypothyroidism E03.9 ; Lumbago with sciatica, right side M54.41 and Lumbar radiculopathy, acute M54.16 [facility] [id number] [place] [address] 63809- 3887 Jul, Methamphetamine use disorder, severe, 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 ; Psychosis, unspecified psychosis type F29 ; Personality disorder F60.9 ; Opioid use disorder, moderate, dependence F11.20 ; Xanax use disorder, moderate F13.20 and BMI 40.0-44.9, adult Z68.41 [place] [id number] [place] [address] 18485- 8950 Jun, Methamphetamine use disorder, severe, 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 ; Psychosis, unspecified psychosis type F29 ; Personality disorder F60.9 ; Opioid use disorder, moderate, dependence F11.20 and Xanax use disorder, moderate F13.20 [place] [id number] [place] [address] 56732- 6438 Jun, Depressive disorder, not elsewhere classified F32.9 and Psychosis, unspecified psychosis type F29 [place] [id number] [place] [address] 60404- 6179 Jun, Lumbar radiculopathy, acute M54.16 [place] [id number] [place] [address] 93723- 0226 Jun, Lumbar radiculopathy, acute M54.16 ; Strain of abdominal wall, initial encounter S39.011A and BMI 40.0-44.9, adult Z68.41 [place] [address] 59316- 7853 Jun, [place] [address] 17742- 0376 May, [place] [address] 37199- 2106 May, Methamphetamine use disorder, severe, 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 ; Psychosis, unspecified psychosis type F29 ; Personality disorder F60.9 ; Opioid use disorder, moderate, dependence F11.20 and Xanax use disorder, moderate F13.20 [place] [id number] [place] [address] 77105- 8649 May, [place] [address] 13586- 4687 May, [place] [id number] [place] [address] 81469- 9415 May, Lumbago with sciatica, left side M54.42 ; Lumbago with sciatica, right side M54.41 ; Other chronic pain G89.29 ; Weight gain R63.5 ; Acquired hypothyroidism E03.9 and BMI 40.0-44.9, adult Z68.41 [place] [id number] [place] [address] 09310- 3424 Apr, Cigarette nicotine dependence without complication F17.210 [place] [id number] [place] [address] 34321- 5999 Apr, Acute bilateral low back pain without sciatica M54.5 [place] [address] 60760- 6904 Apr, Methamphetamine use disorder, severe, 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 ; Psychosis, unspecified psychosis type F29 ; Personality disorder F60.9 ; Opioid use disorder, moderate, dependence F11.20 and Xanax use disorder, moderate F13.20 [facility] [place] [address] 63571 -9717 Apr, Wheezing R06.2 and Bronchitis J40 [place] [address] 41858- 5493 Apr, Bronchitis J40 ; Cigarette nicotine dependence without complication F17.210 and Bipolar disease, chronic F31.[address] 17962- 7309 Mar, Acquired hypothyroidism E03.[address] 72740- 6501 Mar, Acquired hypothyroidism E03.[address] 20881- 3415 Mar, Orthostatic hypotension I95.1 and Non-intractable vomiting with nausea, unspecified vomiting type R11.[address] 00943- 9319 Mar, Strain of lumbar region, initial encounter S39.012A [address] 89494- 9224 Mar, [facility] [address] 13344 -8810 Mar, Bronchitis J40 [place] [address] 97244- 3663 Mar, Degenerative joint disease M19.90 ; Elevated LFTs R79.89 ; Adenopathy R59.1 ; Drug use F19.90 ; Pre-diabetes R73.03 and COPD (chronic obstructive pulmonary disease) J44.9 [facility] [id number] [place] [address] 49675 -7046 30 Feb, 2017 Left hand pain M79.642 and Contusion of left hand, initial encounter S60.222A [place] [address] 17838- 9023 07 Feb, 2017 Body aches R52 and Flu-like symptoms R68.89 [place] [address] 74846- 9728 Jan, [place] [address] 18499- 8976 Jan, Bipolar disease, chronic F31.9 ; Acquired hypothyroidism E03.9 and Encounter for immunization Z23 [facility] [id number] [place] [address] 69594 -4253 05 Dec, 2016 Crushing injury of left wrist and hand, initial encounter S67.42XA [place] [address] 02024- 3646 Sep, [address] 86978- 2194 Sep, Bipolar disease, chronic F31.9 ; Panic disorder with agoraphobia F40.01 and Proteinuria, unspecified type R80.9 [place] [id number] [place] [address] 19566- 0761 August, [address] 77631- 2958 August, Degenerative joint disease M19.90 ; Left-sided chest wall pain R07.89 ; Bipolar disease, chronic F31.9 ; Type 2 diabetes mellitus without complication, without long-term current use of insulin E11.9 ; Acquired hypothyroidism E03.9 and Acute cystitis without hematuria N30.00 [place] [id number] [place] [address] 08185- 7035 Mar, [place] [address] 42719- 5460 30 Feb, 2016 [facility] [id number] [place] [address] 05806 -9961 Feb, Right hand pain M79.641 [facility] [id number] [place] [address] 51794 -7734 Feb, Bronchitis J40 ; Acute non-recurrent pansinusitis J01.40 and Seasonal allergic rhinitis due to other allergic trigger J30.89 [facility] [id number] [place] [address] 01747- 8512 Dec, [facility] [id number] [place] [address] 74483 -4340 Mar, Left-sided chest wall pain R07.89 and Chronic pain G89.29 [facility] [id number] [place] [address] 83530- 7155 Jul, [facility] [id number] [place] [address] 56856- 7749 Jul, [facility] [id number] [place] [address] 66933- 0288 May, [facility] [id number] [place] [address] 93847- 3730 May, [facility] [id number] [place] [address] 44861- 6226 Apr, [facility] [id number] [place] [address] 79190- 4491 Apr, [facility] [id number] [place] [address] 41865- 9670 Mar, [facility] [id number] [place] [address] 55830- 7205 Mar, [facility] [id number] [place] [address] 81436- 4252 Feb, [facility] [id number] [place] [address]- 8403 06 Feb, 2014 [facility] [place] [facility] [address] [id number] [place] [address]- 2961 28 Jan, 2014 [facility] [place] [facility] [address] [id number] [place] [address]- 8703 28 Jan, 2014 [facility] [place] [facility] [address] [id number] [place] [address]- 3502 28 Jan, 2014 [facility] [place] [facility] [address] [id number] [place] [address]- 8446 28 Jan, 2014 [facility] [place] [facility] [address] [id number] [place] [address]- 5824 15 Jan, 2014 [facility] [place] [facility] [address] [id number] [place] [address]- 4236 15 Jan, 2014 [facility] [place] [facility] [address] [id number] [place] [address]- 2837 19 Dec, 2013 [facility] [place] [facility] [address] [id number] [place] [address]- 2357 19 Dec, 2013 [facility] [place] [facility] [address] [id number] [place] [address]- 5472 19 Dec, 2013 [facility] [place] [facility] [address] [facility] [id number] [place] [address]- 4544 19 Sep, 2013 [facility] [place] [facility] [address] [id number] [place] [address]- 6269 18 Sep, 2013 [facility] [place] [facility] [address] [id number] [place] [address]- 2543 18 Sep, 2013 [facility] [place] [facility] [address] [id number] [place] [address]- 8181 16 Sep, 2013 [facility] [place] [facility] [address] [id number] [place] [address]- 2545 16 Sep, 2013 [facility] [place] [facility] [address] [id number] [place] [address]- 2433 Sep, [facility] [place] [facility] [address] [id number] [place] [address]- 0702 Sep, [facility] [place] [facility] [address] [id number] [place] [address]- 3158 Jul, [facility] [place] [facility] [address] [id number] [place] [address]- 4025 Jul, [facility] [place] [facility] [address] [id number] [place] [address]- 6977 Jul, [facility] [place] [facility] [address] [id number] [place] [address]- 7641 Jul, [facility] [place] [facility] [address] [id number] [place] [address]- 7287 Jul, [facility] [place] [facility] [address] [id number] [place] [address]- 1282 Jul, [facility] [place] [facility] [address] [id number] [place] [address]- 4995 Jul, [facility] [place] [facility] [address] [id number] [place] [address]- 1484 Jul, [facility] [place] [facility] [address] [id number] [place] [address]- 1134 Jun, [facility] [place] [facility] [address] [id number] [place] [address]- 5747 Jun, [facility] [place] [facility] [address] [id number] [address]- 2126 May, [facility] [place] [facility] [address] [id number] [place] [address]- 0143 May, [facility] [place] [facility] [address] [id number] [place] [address]- 7997 May, [facility] [place] [facility] [address] [id number] [place] [address]- 4293 May, [facility] [place] [facility] [address] [id number], [place] [address]- 8825 Apr, [facility] [address] [id number] [place] [address]- 0486 Apr, [facility] [place] [facility] [address] [facility] [id number], [place] [address]- 1260 Mar, [facility] [place] [facility] [address] [facility] [id number] [place] [address]- 2219 Mar, [facility] [place] [facility] [address] [id number][place] [address]- 9399 Feb, [facility] [place] [facility] [address] [facility] [id number] [place] [address], [place] [address]- 2475 Feb, [facility] [place] [facility] [address] [facility] [id number] [place] [address]- 2706 Feb, [facility] [place] [facility] [address], [place] [address]- 9013 Feb, [facility] [place] [facility] [address] [facility] [id number], [place] [address]- 0050 Jan, [facility] [place] [facility] [id number], [place] [address]- 9554 Jan, [facility] [place] [facility] [id number], [place] [address]- 9166 Jan, [facility] [place] [facility] [address] [facility] [id number], [place] [address]- 3844 Jan, [facility] [place] [facility] [address] [facility] [id number], [place] [address]- 3833 Jan, [facility] [place] [facility] [address] [id number], [place] [address]- 0477 Dec, [facility] [place] [facility] [address] [facility] [id number], [place] [address]- 5985 Dec, [facility] [place] [facility] [address] [facility] [id number], [place] [address]- 8815 Nov, [facility] [place] [facility] [address] [id number] [place] [address]- 0463 Sep, [facility] [address] [id number] [place] [address]- 8436 August, [facility] [place] [facility] [address] [id number] [place] [address]- 5266 August, [facility] [address] [id number] [place] [address]- 1980 Jul, [facility] [place] [facility] [address] [id number] [place] [address]- 5028 Jul, [facility] [place] [facility] [address] [id number] [place] [address]- 6071 Jul, [facility] [place] [facility] [address] [id number] [place] [address]- 4346 Jul, [facility] [place] [facility] [address] [id number] [place] [address]- 2291 Jul, [facility] [address] [id number] [place] [address]- 0244 Jul, [facility] [place] [facility] [address] [id number] [place] [address]- 9053 Jul, [facility] [address] [id number] [place] [address]- 7703 Jun, [facility] [place] [facility] [address] [id number] [place] [address]- 6185 Jun, [facility] [place] [facility] [address] [id number] [place] [address]- 3825 May, [facility] [place] [facility] [address] [id number] [place] [address]- 4695 Apr, [facility] [place] [facility] [address] [id number] [place] [address]- 2540 Apr, [facility] [place] [facility] [address] [id number] [place] [address]- 1864 Mar, [facility] [place] [facility] [address] [id number] [place] [address]- 5477 Mar, [facility] [place] [facility] [address] [id number] [place] [address]- 0734 Mar, [facility] [place] [facility] [address] [facility] [id number] [place] [address]- 4640 Feb, [facility] [place] [facility] [address] [id number] [place] [address]- 0970 Feb, [facility] [place] [facility] [address] [id number] [place] [address]- 8261 Feb, [facility] [place] [facility] [address] [id number] [place] [address]- 5337 Feb, [facility] [place] [facility] [address] [id number] [place] [address]- 7941 Feb, [facility] [place] [facility] [address] [id number], [place] [address]- 9021 Feb, [facility] [place] [facility] [address] [id number], [place] [address]- 3359 16 Feb, 2012 [facility] [place] [facility] [address] [id number], [place] [address]- 1155 16 Feb, 2012 [facility] [place] [facility] [address] [id number], [place] [address]- 3438 14 Feb, 2012 [facility] [place] [facility] [address] [id number], [place] [address]- 7894 08 Feb, 2012 [facility] [place] [facility] [address] [id number], [place] [address]- 2550 08 Feb, 2012 [facility] [place] [facility] [address] [id number], [place] [address]- 6742 27 Dec, 2011 [facility] [place] [facility] [address] [facility] [id number], [place] [address]- 3085 07 Dec, 2011 [facility] [place] [facility] [address] [id number] [place] [address]- 1589 Nov, [facility] [place] [facility] [address] [id number] [place] [address]- 3852 Nov, [facility] [place] [facility] [address] [id number] [place] [address]- 4966 Oct, [facility] [place] [facility] [address] [id number] [place] [address]- 1526 Oct, [facility] [place] [facility] [address] [id number] [place] [address]- 8298 Sep, [facility] [place] [facility] [address] [id number] [place] [address], [place] [address]- 2484 May, [facility] [place] [facility] [address] [id number] [place] [address]- 5416 May, [facility] [place] [facility] [address] [facility] [id number] [place] [address]- 6335 May, [facility] [place] [facility] [address] [id number] [place] [address]- 5897 Apr, [facility] [place] [facility] [address] [facility] [id number] [place] [address]- 4385 Mar, [facility] [place] [facility] [address] [facility] [id number] [place] [address]- 0920 Mar, [facility] [place] [facility] [address] [id number] [place] [address]- 8771 Feb, [facility] [place] [facility] [address] [id number] [place] [address]- 5553 Feb, [facility] [place] [facility] [address] [id number] [place] [address]- 3903 Feb, [facility] [place] [facility] [address] [id number] [place] [address]- 2546 Jan, [facility] [place] [facility] [address] [facility] [id number] [place] [address]- 2854 Jan, [facility] [address] [id number], [place] [address]- 7278 Dec, [facility] [address], [place] [address]- 5296 Mar, [facility] [address], [place] [address]- 5596 Feb, [facility] [address], [place] [address]- 9376 Feb, [facility] [id number] [place] [address] Feb, [facility] [id number] [place] [address] Jan, [facility] [id number] [place] [address] Dec, [facility] [id number] [place] [address] Nov, [facility] [id number], [place] [address] Sep, [facility] [id number] [place] [address] August, [facility] [id number] [place] [address] May, [facility] [id number] [address] Mar, IMMUNIZATIONS No Known Immunizations SOCIAL HISTORY Never Assessed REASON FOR VISIT BH f/u, Depression. PLAN OF CARE Activity Details Follow Up prn Reason: VITAL SIGNS MEDICATIONS Unknown Medications RESULTS No Results PROCEDURES Procedure Date Ordered Result Body Site Psychotherapy, patient &/family, 30 minutes, established patient September 14, 2017 INSTRUCTIONS MEDICATIONS ADMINISTERED No Known Medications [...] suicide ideat and attempts. [facility] [place], [place] last around 2006 Hospitalization History left foot swollen, stepped in [facility] 05/02/17
--- OUTSIDE RECORDS SUMMARY | 2017-12-24 02:44 | XMS REPORT ---
Author Author YAIMA PEREA Organization 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 Active [id number] Problem COPD (chronic obstructive pulmonary disease) J44.9 Active 40137813 Problem Bipolar disease, chronic F31.9 Active 81013570 Problem Morbid (severe) obesity due to excess calories E66.01 Active [id number] Problem Body mass index (BMI) of 40.0-44.9 in adult Z68.41 Active 324539595 Problem Right sciatic nerve pain M54.31 Active 71949805 Problem Depressive disorder, not elsewhere classified F32.9 Active 58237392 Problem Acquired hypothyroidism E03.9 Active 289283164 Problem Pre-diabetes R73.03 Active 664759911 Problem Degenerative joint disease M19.90 Active 156165310 Problem Chronic pain G89.29 Active 23083240 Problem Methamphetamine use disorder, severe, 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 [place] [id number] [place] [address] 48093- 7377 Sep, [place] [address] [address]64- 5338 Sep, Methamphetamine use disorder, severe, 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 ; Psychosis, unspecified psychosis type F29 ; Personality disorder F60.9 ; Opioid use disorder, moderate, dependence F11.20 ; Xanax use disorder, moderate F13.20 and BMI 40.0-44.9, adult Z68.41 [place] [id number] [place] [address] 96833- 0021 Sep, Depressive disorder, not elsewhere classified F32.9 and Psychosis, unspecified psychosis type F29 [place] [address] [id number] [place] [address] 66806- 9977 August, [place] [id number] [place] [address] 84235- 8292 August, Depressive disorder, not elsewhere classified F32.9 and Psychosis, unspecified psychosis type F29 [place] [address] [id number] [place] [address] 87168- 1275 August, [place] [address] [id number] [place] [address] 36117- 6059 August, Lumbago with sciatica, right side M54.41 and Other chronic pain G89.29 [facility] [id number] [place] [address] 36713 -0685 Jul, Right sciatic nerve pain M54.31 [place] [id number] [place] [address] 51789- 9595 Jul, Acquired hypothyroidism E03.9 [place] [id number] [place] [address] 59501- 9819 Jul, Depressive disorder, not elsewhere classified F32.9 and Psychosis, unspecified psychosis type F29 [place] [id number] [place] [address] 83415- 4014 Jul, Acquired hypothyroidism E03.9 ; Lumbago with sciatica, right side M54.41 and Lumbar radiculopathy, acute M54.16 [place] [id number] [place] [address] 35725- 9895 Jul, Methamphetamine use disorder, severe, 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 ; Psychosis, unspecified psychosis type F29 ; Personality disorder F60.9 ; Opioid use disorder, moderate, dependence F11.20 ; Xanax use disorder, moderate F13.20 and BMI 40.0-44.9, adult Z68.41 [place] [id number] [place] [address] 25607- 8527 Jun, Methamphetamine use disorder, severe, 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 ; Psychosis, unspecified psychosis type F29 ; Personality disorder F60.9 ; Opioid use disorder, moderate, dependence F11.20 and Xanax use disorder, moderate F13.20 [place] [id number] [place] [address] 01986- 8767 Jun, Depressive disorder, not elsewhere classified F32.9 and Psychosis, unspecified psychosis type F29 [place] [id number] [place] [address] 25400- 5274 Jun, Lumbar radiculopathy, acute M54.16 [place] [id number] [place] [address] 06900- 4106 Jun, Lumbar radiculopathy, acute M54.16 ; Strain of abdominal wall, initial encounter S39.011A and BMI 40.0-44.9, adult Z68.41 [place] [id number] [place] [address] 33723- 7513 Jun, [place] [id number] [place] [address] 78672- 6640 May, [place] [address] 468168- 3228 May, Methamphetamine use disorder, severe, 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 ; Psychosis, unspecified psychosis type F29 ; Personality disorder F60.9 ; Opioid use disorder, moderate, dependence F11.20 and Xanax use disorder, moderate F13.20 [place] [id number] [place] [address] 07713- 0673 May, [place] [id number] [place] [address] 01039- 9554 May, [place] [address] [id number] [place] [address] 00074- 5916 May, Lumbago with sciatica, left side M54.42 ; Lumbago with sciatica, right side M54.41 ; Other chronic pain G89.29 ; Weight gain R63.5 ; Acquired hypothyroidism E03.9 and BMI 40.0-44.9, adult Z68.41 [place] [id number] [place] [address] 70117- 2009 Apr, Cigarette nicotine dependence without complication F17.210 [place] [id number] [place] [address] 02362- 6975 Apr, Acute bilateral low back pain without sciatica M54.5 [place] [id number] [place] [address] 53924- 4089 Apr, Methamphetamine use disorder, severe, 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 ; Psychosis, unspecified psychosis type F29 ; Personality disorder F60.9 ; Opioid use disorder, moderate, dependence F11.20 and Xanax use disorder, moderate F13.20 [facility] [address] 32953 -0552 12 Apr, 2017 Wheezing R06.2 and Bronchitis J40 [place] [address] 22869- 2168 02 Apr, 2017 Bronchitis J40 ; Cigarette nicotine dependence without complication F17.210 and Bipolar disease, chronic F31.9 [place] [address] 20600- 3469 Mar, Acquired hypothyroidism E03.9 [place] [address] 05960- 9881 Mar, Acquired hypothyroidism E03.9 [place] [address] 51986- 3423 Mar, Orthostatic hypotension I95.1 and Non-intractable vomiting with nausea, unspecified vomiting type R11.2 [place] [address] 41248- 8033 Mar, Strain of lumbar region, initial encounter S39.012A [place] [address] 83532- 8468 Mar, [facility] [place] [address] 29708 -5123 Mar, Bronchitis J40 [place] [address] 38534- 1659 05 Mar, 2017 Degenerative joint disease M19.90 ; Elevated LFTs R79.89 ; Adenopathy R59.1 ; Drug use F19.90 ; Pre-diabetes R73.03 and COPD (chronic obstructive pulmonary disease) J44.9 [facility] [place] [address] 97511 -5674 Feb, Left hand pain M79.642 and Contusion of left hand, initial encounter S60.222A [place] [address] 22136- 0611 07 Feb, 2017 Body aches R52 and Flu-like symptoms R68.89 [place] [id number] [place] [address] 12769- 2031 Jan, [place] [id number] [place] [address] 14918- 7741 Jan, Bipolar disease, chronic F31.9 ; Acquired hypothyroidism E03.9 and Encounter for immunization Z23 [facility] [id number] [place] [address] 57524 -4895 05 Dec, 2016 Crushing injury of left wrist and hand, initial encounter S67.42XA [place] [address] 16013- 7474 Sep, [place] [address] 28324- 9209 Sep, Bipolar disease, chronic F31.9 ; Panic disorder with agoraphobia F40.01 and Proteinuria, unspecified type R80.9 [place] [id number] [place] [address] 83565- 2868 August, [place] [id number] [place] [address] 65925- 5653 August, Degenerative joint disease M19.90 ; Left-sided chest wall pain R07.89 ; Bipolar disease, chronic F31.9 ; Type 2 diabetes mellitus without complication, without long-term current use of insulin E11.9 ; Acquired hypothyroidism E03.9 and Acute cystitis without hematuria N30.00 [place] [id number] [place] [address] 56777- 1090 Mar, [place] [address] [id number] [place] [address] 28360- 9375 Feb, [facility] [id number] [place] [address] 19411 -7840 Feb, Right hand pain M79.641 [facility] [address] [address] Feb, Bronchitis J40 ; Acute non-recurrent pansinusitis J01.40 and Seasonal allergic rhinitis due to other allergic trigger J30.89 [facility] [id number] [address]- 2624 29 Dec, 2015 [facility] [id number] [place] [address] 70312 -5561 Mar, Left-sided chest wall pain R07.89 [address] Chronic pain G89.29 [facility] [id number] [place] [address] 57737- 6759 Jul, [facility] [id number] [place] [address] 10012- 9050 Jul, [facility] [id number] [place] [address] 10420- 5579 May, [facility] [id number] [place] [address] 49968- 9648 May, [facility] [id number] [place] [address] 36666- 1156 Apr, [facility] [id number] [place] [address] 51547- 3829 Apr, [facility] [address] [address]- 3794 Mar, [facility] [id number] [place] [address] 40993- 1357 Mar, [facility] [id number] [address]- 3711 Feb, [facility] [id number] [place] [address] 64601- 0753 Feb, [facility] [address] [address]- 9529 Jan, [facility] [id number] [place] [address]- 5666 28 Jan, 2014 [facility] [place] [facility] [address] [id number] [place] [address]- 9893 28 Jan, 2014 [facility] [place] [facility] [address] [id number] [place] [address]- 8559 28 Jan, 2014 [facility] [place] [facility] [address] [id number] [place] [address]- 7464 15 Jan, 2014 [facility] [place] [facility] [address] [id number] [place] [address]- 3052 15 Jan, 2014 [facility] [place] [facility] [address] [id number] [place] [address]- 1254 19 Dec, 2013 [facility] [place] [facility] [address] [id number] [place] [address]- 4023 19 Dec, 2013 [facility] [place] [facility] [address] [id number] [place] [address]- 3890 19 Dec, 2013 [facility] [place] [facility] [address] [id number] [place] [address]- 3521 19 Dec, 2013 [facility] [place] [facility] [address] [id number] [place] [address]- 8663 18 Dec, 2013 [facility] [place] [facility] [address] [facility] [id number] [place] [address]- 2882 18 Dec, 2013 [facility] [place] [facility] [address] [id number] [place] [address]- 0517 16 Dec, 2013 [facility] [place] [facility] [address] [id number] [place] [address]- 8895 16 Dec, 2013 [facility] [place] [facility] [address] [id number] [place] [address]- 5547 17 Sep, 2013 [facility] [place] [facility] [address] [id number] [place] [address]- 1595 17 Sep, 2013 [facility] [place] [facility] [address] [id number] [place] [address]- 5977 15 Jul, 2013 [facility] [place] [facility] [address] [id number] [place] [address]- 6009 15 Jul, 2013 [facility] [place] [facility] [address] [id number] [place] [address]- 5443 Jul, [facility] [place] [facility] [address] [id number] [place] [address]- 1852 Jul, [facility] [place] [facility] [address] [id number] [place] [address]- 9212 Jul, [facility] [place] [facility] [address] [id number] [place] [address]- 2037 Jul, [facility] [place] [facility] [address] [id number] [place] [address]- 7540 Jul, [facility] [place] [facility] [address] [id number] [place] [address]- 9086 Jul, [facility] [place] [facility] [address] [id number] [place] [address]- 3206 Jun, [facility] [place] [facility] [address] [id number] [place] [address]- 6796 Jun, [facility] [place] [facility] [address] [id number] [place] [address]- 1556 May, [facility] [place] [facility] [address] [id number] [place] [address]- 3366 May, [facility] [place] [facility] [address] [id number] [place] [address]- 6409 May, [facility] [place] [facility] [address] [id number] [place] [address]- 7608 May, [facility] [place] [facility] [address] [id number] [place] [address]- 6715 Apr, [facility] [place] [facility] [address] [id number] [place] [address]- 3279 Apr, [facility] [place] [facility] [address] [id number], [place] [address]- 9224 Mar, [facility] [place] [facility] [address] [id number] [place] [address]- 9604 Mar, [facility] [place] [facility] [address] [facility] [id number][place] [address]- 3727 Feb, [facility] [place] [facility] [address] [facility] [id number] [place] [address]- 5808 Feb, [facility] [place] [facility] [address] [id number], [place] [address]- 9793 Feb, [facility] [place] [facility] [address] [facility] [id number] [place] [address], [place] [address]- 8957 Feb, [facility] [place] [facility] [address] [facility] [id number], [place] [address]- 2483 Jan, [facility] [place] [facility] [address], [place] [address]- 1703 Jan, [facility] [place] [facility] [address] [facility] [id number], [place] [address]- 3035 Jan, [facility] [place] [facility] [id number] [address]- 6099 Jan, [facility] [place] [facility] [id number] [address]- 6647 Jan, [facility] [place] [facility] [address] [facility] [id number], [place] [address]- 8810 Dec, [facility] [place] [facility] [address] [facility] [id number], [place] [address]- 6869 Dec, [facility] [place] [facility] [address] [facility] [id number], [place] [address]- 6007 Nov, [facility] [place] [facility] [address] [facility] [id number], [place] [address]- 4632 Sep, [facility] [place] [facility] [address] [facility] [id number], [place] [address]- 2888 August, [facility] [place] [facility] [address] [id number] [place] [address]- 0512 August, [facility] [address] [id number] [place] [address]- 8666 Jul, [facility] [place] [facility] [address] [id number] [place] [address]- 3836 Jul, [facility] [address] [id number] [place] [address]- 3765 Jul, [facility] [place] [facility] [address] [id number] [place] [address]- 5070 Jul, [facility] [place] [facility] [address] [id number] [place] [address]- 0045 Jul, [facility] [place] [facility] [address] [id number] [place] [address]- 7754 Jul, [facility] [place] [facility] [address] [id number] [place] [address]- 7910 Jul, [facility] [address] [id number] [place] [address]- 6926 Jun, [facility] [address] [id number] [place] [address]- 5242 Jun, [facility] [address] [id number] [place] [address]- 9278 May, [facility] [address] [id number] [place] [address]- 6090 Apr, [facility] [place] [facility] [address] [id number] [place] [address]- 7529 Apr, [facility] [place] [facility] [address] [id number] [place] [address]- 9535 Mar, [facility] [place] [facility] [address] [id number] [place] [address]- 5689 Mar, [facility] [place] [facility] [address] [id number] [place] [address]- 7165 Mar, [facility] [place] [facility] [address] [id number] [place] [address]- 8065 Feb, [facility] [place] [facility] [address] [id number] [place] [address]- 9002 Feb, [facility] [place] [facility] [address] [id number] [place] [address]- 9255 Feb, [facility] [place] [facility] [address] [id number] [place] [address]- 8895 Feb, [facility] [place] [facility] [address] [id number] [place] [address]- 2693 Feb, [facility] [place] [facility] [address] [id number] [place] [address]- 3865 Feb, [facility] [place] [facility] [address] [id number] [place] [address]- 6179 Feb, [facility] [place] [facility] [address] [id number], [place] [address]- 9983 16 Feb, 2012 [facility] [place] [facility] [address] [id number] [place] [address]- 5958 14 Feb, 2012 [facility] [place] [facility] [address] [id number] [place] [address]- 2432 Feb, [facility] [place] [facility] [address] [id number], [place] [address]- 4182 Feb, [facility] [place] [facility] [address] [id number], [place] [address]- 0119 27 Dec, 2011 [facility] [place] [facility] [address] [id number] [place] [address]- 3659 07 Dec, 2011 [facility] [place] [facility] [address] [id number], [place] [address]- 1378 30 Nov, 2011 [facility] [place] [facility] [address] [id number], [place] [address]- 1310 Nov, [facility] [place] [facility] [address] [id number] [place] [address]- 2124 Oct, [facility] [address] [id number] [place] [address]- 4920 Oct, [facility] [place] [facility] [address] [id number] [place] [address]- 6146 Sep, [facility] [address] [id number] [place] [address]- 4348 May, [facility] [place] [facility] [address] [id number] [place] [address]- 1698 May, [facility] [address] [id number] [place] [address]- 1421 May, [facility] [place] [facility] [address] [id number] [place] [address]- 2845 Apr, [facility] [address] [id number] [place] [address]- 6301 Mar, [facility] [address] [id number] [place] [address]- 1205 Mar, [facility] [place] [facility] [address] [facility] [id number] [place] [address]- 6783 Feb, [facility] [address] [facility] [id number] [place] [address]- 3607 Feb, [facility] [place] [facility] [address] [id number] [place] [address]- 2213 Feb, [facility] [place] [facility] [address] [id number] [place] [address]- 0288 Jan, [facility] [place] [facility] [address] [id number] [place] [address]- 3494 Jan, [facility] [place] [facility] [address] [id number] [place] [address]- 2546 Dec, [facility] [place] [facility] [address] [id number] [place] [address]- 1158 Mar, [facility] [id number] [address] 6826 Feb, [facility] [address] [address] Feb, [facility] [id number] [address] Feb, [facility] [id number] [address] Jan, [facility] [id number] [address] Dec, [facility] [id number] [address] Nov, [facility] [id number] [address] Sep, [facility] [id number] [address] August, [facility] [id number] [address] May, [facility] [address] [id number], [place] [address] Mar, IMMUNIZATIONS No Known Immunizations SOCIAL HISTORY Never Assessed REASON FOR VISIT BH f/u, Depression. PLAN OF CARE Activity Details Follow Up 3 Weeks Reason:depression VITAL SIGNS MEDICATIONS Unknown Medications RESULTS No Results PROCEDURES Procedure Date Ordered Result Body Site Psychotherapy, patient &/family, 30 minutes, established patient August 24, 2017 INSTRUCTIONS MEDICATIONS ADMINISTERED No Known Medications [...] suicide ideat and attempts. [facility] [place], [facility] last around 2006 Hospitalization History left foot swollen, stepped in [facility] 05/02/17
--- OUTSIDE RECORDS SUMMARY | 2017-12-24 02:44 | XMS REPORT ---
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 Active [id number] Problem COPD (chronic obstructive pulmonary disease) J44.9 Active 11472421 Problem Bipolar disease, chronic F31.9 Active 08601279 Problem Morbid (severe) obesity due to excess calories E66.01 Active 08999273741245 Problem Body mass index (BMI) of 40.0-44.9 in adult Z68.41 Active 020635248 Problem Right sciatic nerve pain M54.31 Active 28220133 Problem Depressive disorder, not elsewhere classified F32.9 Active 48384534 Problem Acquired hypothyroidism E03.9 Active 180298999 Problem Pre-diabetes R73.03 Active 915197672 Problem Degenerative joint disease M19.90 Active 289323220 Problem Chronic pain G89.29 Active 59566156 Problem Methamphetamine use disorder, severe, 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 Active 73007798 Problem Opioid use disorder, moderate, dependence F11.20 Active 13445048 Problem Cigarette nicotine dependence without complication F17.210 Active 95139917 Problem Psychosis, unspecified psychosis type F29 Active 03907722 Problem Xanax use disorder, moderate F13.20 Active 644149354 Problem Personality disorder F60.9 Active 35875734 ALLERGIES No Information ENCOUNTERS Encounter Location Date Diagnosis [facility] [id number] [place] [address] 95148- 4091 Dec, [place] [address] [address]- [address]645 Oct, Breast pain N64.4 ; Fibrocystic changes of left breast N60.12 and Bilateral otitis media with effusion H65.93 [facility] [address] [address] Sep, 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 [place] [id number] [place] [address] 62720- 1876 Sep, [place] [address] 47294- 4715 Sep, Methamphetamine use disorder, severe, 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 ; Psychosis, unspecified psychosis type F29 ; Personality disorder F60.9 ; Opioid use disorder, moderate, dependence F11.20 ; Xanax use disorder, moderate F13.20 and BMI 40.0-44.9, adult Z68.41 [place] [id number] [place] [address] 19456- 0166 Sep, Depressive disorder, not elsewhere classified F32.9 and Psychosis, unspecified psychosis type F29 [place] [address] [id number] [place] [address] 20286- 2477 August, [place] [id number] [place] [address] 10054- 9754 August, Depressive disorder, not elsewhere classified F32.9 and Psychosis, unspecified psychosis type F29 [place] [id number] [place] [address] 42754- 2801 August, [place] [address] 23421- 9124 August, Lumbago with sciatica, right side M54.41 and Other chronic pain G89.29 [facility] [id number] [place] [address] 66916 -6528 Jul, Right sciatic nerve pain M54.31 [place] [id number] [place] [address] 58192- 8137 Jul, Acquired hypothyroidism E03.9 [place] [id number] [place] [address] 45169- 6153 Jul, Depressive disorder, not elsewhere classified F32.9 and Psychosis, unspecified psychosis type F29 [place] [id number] [place] [address] 72716- 1967 Jul, Acquired hypothyroidism E03.9 ; Lumbago with sciatica, right side M54.41 and Lumbar radiculopathy, acute M54.16 [place] [id number] [place] [address] 46505- 5879 Jul, Methamphetamine use disorder, severe, 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 ; Psychosis, unspecified psychosis type F29 ; Personality disorder F60.9 ; Opioid use disorder, moderate, dependence F11.20 ; Xanax use disorder, moderate F13.20 and BMI 40.0-44.9, adult Z68.41 [place] [id number] [place] [address] 10060- 4074 Jun, Methamphetamine use disorder, severe, 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 ; Psychosis, unspecified psychosis type F29 ; Personality disorder F60.9 ; Opioid use disorder, moderate, dependence F11.20 and Xanax use disorder, moderate F13.20 [place] [address] [place] [address] 36811- 6016 Jun, Depressive disorder, not elsewhere classified F32.9 and Psychosis, unspecified psychosis type F29 [place] [id number] [place] [address] 65916- 9757 Jun, Lumbar radiculopathy, acute M54.16 [place] [id number] [place] [address] 67099- 5573 Jun, Lumbar radiculopathy, acute M54.16 ; Strain of abdominal wall, initial encounter S39.011A and BMI 40.0-44.9, adult Z68.41 [place] [id number] [place] [address] 36120- 4506 Jun, [place] [id number] [place] [address] 85405- 3952 May, [place] [address] [place] 130575- 8433 May, Methamphetamine use disorder, severe, 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 ; Psychosis, unspecified psychosis type F29 ; Personality disorder F60.9 ; Opioid use disorder, moderate, dependence F11.20 and Xanax use disorder, moderate F13.20 [place] [id number] [place] [address] 74434- 3403 May, [place] [id number] [place] [address] 46912- 4997 May, [place] [id number] [place] [address] 50989- 4359 May, Lumbago with sciatica, left side M54.42 ; Lumbago with sciatica, right side M54.41 ; Other chronic pain G89.29 ; Weight gain R63.5 ; Acquired hypothyroidism E03.9 and BMI 40.0-44.9, adult Z68.41 [place] [id number] [place] [address] 48534- 5274 Apr, Cigarette nicotine dependence without complication F17.210 [place] [id number] [place] [address] 14320- 9887 Apr, Acute bilateral low back pain without sciatica M54.5 [place] [id number] [place] [address] 07257- 4000 Apr, Methamphetamine use disorder, severe, 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 [address] [address]274 [address]6797 12 Apr, 2017 Wheezing R06.2 and Bronchitis J40 [place] [address] 05964- 3414 02 Apr, 2017 Bronchitis J40 ; Cigarette nicotine dependence without complication F17.210 and Bipolar disease, chronic F31.9 [place] [address] 42673- 7953 Mar, Acquired hypothyroidism E03.9 [place] [address] 43162- 2540 Mar, Acquired hypothyroidism E03.9 [place] [address] 64291- 9088 Mar, Orthostatic hypotension I95.1 and Non-intractable vomiting with nausea, unspecified vomiting type R11.2 [place] [address] 50299- 8157 14 Mar, 2017 Strain of lumbar region, initial encounter S39.012A [place] [address] 45672- 1211 Mar, [facility] [place] [address] 16198 -9502 Mar, Bronchitis J40 [place] [address] 53026- 2118 05 Mar, 2017 Degenerative joint disease M19.90 ; Elevated LFTs R79.89 ; Adenopathy R59.1 ; Drug use F19.90 ; Pre-diabetes R73.03 and COPD (chronic obstructive pulmonary disease) J44.9 [facility] [place] [address] 12306 -0505 Feb, Left hand pain M79.642 and Contusion of left hand, initial encounter S60.222A [address] [place] [address]- 9834 07 Feb, 2017 Body aches R52 and Flu-like symptoms R68.89 [place] [address] 65136- 2915 Jan, [place] [address] 09685- 8005 18 Jan, 2017 Bipolar disease, chronic F31.9 ; Acquired hypothyroidism E03.9 and Encounter for immunization Z23 [facility] [place] [address] 25527 -7198 05 Dec, 2016 Crushing injury of left wrist and hand, initial encounter S67.42XA [place] [address] 37514- 1225 Sep, [place] [address] 32830- 1365 Sep, Bipolar disease, chronic F31.9 ; Panic disorder with agoraphobia F40.01 and Proteinuria, unspecified type R80.9 [place] [id number] [place] [address] 33336- 2197 August, [place] [address] 22565- 9411 August, Degenerative joint disease M19.90 ; Left-sided chest wall pain R07.89 ; Bipolar disease, chronic F31.9 ; Type 2 diabetes mellitus without complication, without long-term current use of insulin E11.9 ; Acquired hypothyroidism E03.9 and Acute cystitis without hematuria N30.00 [place] [id number] [place] [address] 21493- 2763 Mar, [place] [address] 59025- 3184 Feb, [facility] [id number] [place] [address] 78207 -8332 Feb, Right hand pain M79.641 [facility] [address] [address] Feb, Bronchitis J40 ; Acute non-recurrent pansinusitis J01.40 and Seasonal allergic rhinitis due to other allergic trigger J30.89 [facility] [address] [address]- 3460 29 Dec, 2015 [facility] [id number] [place] [address] 98114 -8003 Mar, Left-sided chest wall pain R07.89 and Chronic pain G89.29 [facility] [id number] [place] [address] 52033- 1454 Jul, [facility] [id number] [place] [address] 18238- 4738 Jul, [facility] [id number] [place] [address] 61252- 6294 May, [facility] [id number] [place] [address] 57810- 7233 May, [facility] [id number] [place] [address] 13385- 2448 Apr, [facility] [id number] [address]- 9721 Apr, [facility] [address] [address]- 1350 Mar, [facility] [address] [place] [address]- 5246 Mar, [facility] [address] [address]- 2828 Feb, [facility] [address] [address]- 0178 Feb, [facility] [address] [address]- 5781 Jan, [facility] [id number] [place] [address]- 3343 28 Jan, 2014 [facility] [place] [facility] [address] [id number] [place] [address]- 0408 28 Jan, 2014 [facility] [place] [facility] [address] [id number] [place] [address]- 2479 28 Jan, 2014 [facility] [place] [facility] [address] [id number] [place] [address]- 6241 15 Jan, 2014 [facility] [place] [facility] [address] [id number] [place] [address]- 6168 15 Jan, 2014 [facility] [place] [facility] [address] [id number] [place] [address]- 0230 19 Dec, 2013 [facility] [place] [facility] [address] [id number] [place] [address]- 6233 19 Dec, 2013 [facility] [place] [facility] [address] [id number] [place] [address]- 6057 19 Dec, 2013 [facility] [place] [facility] [address] [id number] [place] [address]- 9200 19 Dec, 2013 [facility] [place] [facility] [address] [id number] [place] [address]- 0769 18 Dec, 2013 [facility] [place] [facility] [address] [id number] [place] [address]- 5907 18 Dec, 2013 [facility] [place] [facility] [address] [id number] [place] [address]- 1306 16 Dec, 2013 [facility] [place] [facility] [address] [id number] [place] [address]- 2942 16 Dec, 2013 [facility] [place] [facility] [address] [id number] [place] [address]- 4310 17 Sep, 2013 [facility] [place] [facility] [address] [id number] [place] [address]- 0507 17 Sep, 2013 [facility] [place] [facility] [address] [id number] [place] [address]- 2574 15 Jul, 2013 [facility] [place] [facility] [address] [id number] [place] [address]- 1289 15 Jul, 2013 [facility] [place] [facility] [address] [id number] [place] [address]- 0095 Jul, [facility] [place] [facility] [address] [id number] [place] [address]- 1531 Jul, [facility] [place] [facility] [address] [id number] [place] [address]- 2636 Jul, [facility] [place] [facility] [address] [id number] [place] [address]- 7383 Jul, [facility] [place] [facility] [address] [id number] [place] [address]- 6152 Jul, [facility] [place] [facility] [address] [id number] [place] [address]- 4862 Jul, [facility] [place] [facility] [address] [id number] [place] [address]- 4966 Jun, [facility] [place] [facility] [address] [id number] [place] [address]- 6563 Jun, [facility] [place] [facility] [address] [id number] [place] [address]- 2504 May, [facility] [place] [facility] [address] [id number] [place] [address]- 2403 May, [facility] [place] [facility] [address] [id number] [place] [address]- 9174 May, [facility] [place] [facility] [address] [id number] [place] [address]- 1558 May, [facility] [place] [facility] [address] [id number] [place] [address]- 4916 Apr, [facility] [place] [facility] [address] [id number] [place] [address]- 6802 Apr, [facility] [place] [facility] [address] [id number] [place] [address]- 2757 Mar, [facility] [place] [facility] [address] [id number] [place] [address]- 3167 Mar, [facility] [place] [facility] [address] [id number] [place] [address]- 7546 Feb, [facility] [place] [facility] [address] [id number] [place] [address]- 6829 Feb, [facility] [place] [facility] [address] [id number] [place] [address]- 6739 Feb, [facility] [place] [facility] [address] [id number] [place] [address]- 5895 Feb, [facility] [place] [facility] [address] [id number] [place] [address]- 8593 Jan, [facility] [place] [facility] [address] [id number] [place] [address]- 1189 Jan, [facility] [place] [facility] [address] [id number] [place] [address]- 2256 Jan, [facility] [place] [facility] [address] [id number] [place] [address]- 9291 Jan, [facility] [place] [facility] [address] [facility] [id number] [place] [address]- 3910 Jan, [facility] [place] [facility] [address] [id number] [place] [address]- 2980 Dec, [facility] [place] [facility] [address] [id number] [address]- 2547 Dec, [facility] [place] [facility] [address] [id number] [place] [address]- 8476 Nov, [facility] [place] [facility] [address] [id number] [place] [address] 2546 Sep, [facility] [place] [facility] [address] [facility] [id number] [place] [address]- 4473 August, [facility] [place] [facility] [address] [id number] [place] [address]- 1502 August, [facility] [address] [id number] [place] [address]- 7027 Jul, [facility] [address] [id number] [place] [address]- 2028 Jul, [facility] [address] [id number] [place] [address]- 8383 Jul, [facility] [address] [id number] [place] [address]- 0653 Jul, [facility] [address] [id number] [place] [address]- 9143 Jul, [facility] [address] [id number] [place] [address]- 1678 Jul, [facility] [address] [id number] [place] [address]- 9922 Jul, [facility] [address] [id number] [place] [address]- 5248 Jun, [facility] [address] [id number] [place] [address]- 9713 Jun, [facility] [address] [id number] [place] [address]- 5147 May, [facility] [address] [id number] [place] [address]- 1490 Apr, [facility] [address] [id number] [place] [address]- 9819 Apr, [facility] [address] [id number] [place] [address]- 0594 Mar, [facility] [address] [id number] [place] [address]- 1701 Mar, [facility] [address] [id number] [address]- 4758 Mar, [facility] [place] [facility] [address] [id number] [place] [address]- 9325 Feb, [facility] [place] [facility] [address] [id number] [place] [address]- 1387 Feb, [facility] [place] [facility] [address] [id number] [place] [address]- 0355 Feb, [facility] [place] [facility] [address] [id number] [place] [address]- 3606 Feb, [facility] [place] [facility] [address] [id number] [place] [address]- 9563 Feb, [facility] [place] [facility] [address] [id number] [place] [address]- 6561 Feb, [facility] [place] [facility] [address] [id number] [place] [address]- 6950 16 Feb, 2012 [facility] [place] [facility] [address] [id number] [place] [address]- 5599 16 Feb, 2012 [facility] [place] [facility] [address] [id number] [place] [address]- 1634 14 Feb, 2012 [facility] [place] [facility] [address] [id number] [place] [address]- 3988 Feb, [facility] [place] [facility] [address] [id number], [place] [address]- 4312 08 Feb, 2012 [facility] [place] [facility] [address] [id number], [place] [address]- 5676 27 Dec, 2011 [facility] [place] [facility] [address] [id number] [place] [address]- 1310 07 Dec, 2011 [facility] [place] [facility] [address] [id number] [place] [address]- 1005 30 Nov, 2011 [facility] [place] [facility] [address] [id number] [place] [address]- 1120 Nov, [facility] [place] [facility] [address] [id number] [place] [address]- 0719 Oct, [facility] [address] [id number] [place] [address]- 9606 Oct, [facility] [place] [facility] [address] [id number] [place] [address]- 1066 Sep, [facility] [place] [facility] [address] [id number] [place] [address]- 8926 May, [facility] [place] [facility] [address] [id number] [place] [address]- 0916 May, [facility] [place] [facility] [address] [id number] [place] [address]- 1668 May, [facility] [place] [facility] [address] [id number] [place] [address]- 1159 Apr, [facility] [place] [facility] [address] [id number] [place] [address]- 9790 Mar, [facility] [place] [facility] [address] [id number] [place] [address]- 2060 Mar, [facility] [place] [facility] [address] [id number] [place] [address]- 3114 Feb, [facility] [place] [facility] [address] [id number] [place] [address]- 3273 Feb, [facility] [place] [facility] [address] [id number] [place] [address]- 1671 Feb, [facility] [place] [facility] [address] [id number] [place] [address]- 0400 Jan, [facility] [place] [facility] [address] [id number] [place] [address]- 6276 Jan, [facility] [place] [facility] [address] [id number] [place] [address]- 2546 Dec, [facility] [place] [facility] [address] [id number] [place] [address]- 0679 Mar, [facility] [address], [place] [address]- 6196 Feb, [facility] [address], [place] [address]- 8774 Feb, [facility] [address], [place] [address]- 8230 Feb, [facility] [id number] [place] [address] Jan, [facility] [id number] [place] [address] Dec, [facility] [id number] [place] [id number] Nov, [facility] [id number] [place] [id number] Sep, [facility] [id number] [place] [address] August, [facility] [id number] [place] [address] May, [facility] [id number], [place] [address] Mar, IMMUNIZATIONS No Known Immunizations SOCIAL HISTORY Never Assessed REASON FOR VISIT FYI- [place] PLAN OF CARE VITAL SIGNS MEDICATIONS Unknown [...] Hospitalization History left foot swollen, stepped in [facility] 05/02/17
--- OUTSIDE RECORDS SUMMARY | 2017-12-24 02:45 | XMS REPORT ---
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 Active [id number] Problem COPD (chronic obstructive pulmonary disease) J44.9 Active 31549015 Problem Bipolar disease, chronic F31.9 Active 82634338 Problem Morbid (severe) obesity due to excess calories E66.01 Active 97036333454323 Problem Body mass index (BMI) of 40.0-44.9 in adult Z68.41 Active 762282299 Problem Right sciatic nerve pain M54.31 Active 03548787 Problem Depressive disorder, not elsewhere classified F32.9 Active 63341011 Problem Acquired hypothyroidism E03.9 Active 257299907 Problem Pre-diabetes R73.03 Active 502307274 Problem Degenerative joint disease M19.90 Active 198609248 Problem Chronic pain G89.29 Active 66394054 Problem Methamphetamine use disorder, severe, 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 Active 46705041 Problem Opioid use disorder, moderate, dependence F11.20 Active 52960568 Problem Cigarette nicotine dependence without complication F17.210 Active 08357718 Problem Psychosis, unspecified psychosis type F29 Active 54072663 Problem Xanax use disorder, moderate F13.20 Active 990077118 Problem Personality disorder F60.9 Active 26248123 ALLERGIES Substance Reaction Event Type Date Status Tramadol HCl nausea and vomiting Drug Allergy August, Active Penicillin V Potassium anaphylaxis Drug Allergy August, Active Naproxen swelling Drug Allergy August, Active Keflex anaphylaxis Drug Allergy August, Active Ibuprofen nausea and vomitting Drug Allergy August, Active Aspirin hives Drug Allergy August, Active ENCOUNTERS Encounter Location Date Diagnosis [facility] [place] [address] [place] [address] 78368- 6388 Dec, [facility] [place] [id number] [place] [address] 51773- 3519 Oct, Breast pain N64.4 ; Fibrocystic changes of left breast N60.12 and Bilateral otitis media with effusion H65.93 [facility] [id number] [place] [address] 93156 -0670 Sep, 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 [place] [id number] [place] [address] 60620- 8773 Sep, [place] [id number] [place] [address] 98840- 5957 Sep, Methamphetamine use disorder, severe, 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 ; Psychosis, unspecified psychosis type F29 ; Personality disorder F60.9 ; Opioid use disorder, moderate, dependence F11.20 ; Xanax use disorder, moderate F13.20 and BMI 40.0-44.9, adult Z68.41 [place] [address] [place] [address] 22777- 9305 Sep, Depressive disorder, not elsewhere classified F32.9 and Psychosis, unspecified psychosis type F29 [place] [id number] [place] [address] 05870- 9780 August, [place] [id number] [place] [address] 31287- 2761 August, Depressive disorder, not elsewhere classified F32.9 and Psychosis, unspecified psychosis type F29 [place] [id number] [place] [address] 72222- 5879 August, [place] [address] [place] [address] 02368- 8929 August, Lumbago with sciatica, right side M54.41 and Other chronic pain G89.29 [facility] [address] [place] [address] 14421 -9216 Jul, Right sciatic nerve pain M54.31 [place] [id number] [place] [address] 14534- 8723 Jul, Acquired hypothyroidism E03.9 [place] [id number] [place] [address] 62737- 7542 Jul, Depressive disorder, not elsewhere classified F32.9 and Psychosis, unspecified psychosis type F29 [place] [id number] [place] [address] 69626- 9411 Jul, Acquired hypothyroidism E03.9 ; Lumbago with sciatica, right side M54.41 and Lumbar radiculopathy, acute M54.16 [facility] [place] [id number] [place] [address] 93235- 7074 Jul, Methamphetamine use disorder, severe, 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 ; Psychosis, unspecified psychosis type F29 ; Personality disorder F60.9 ; Opioid use disorder, moderate, dependence F11.20 ; Xanax use disorder, moderate F13.20 and BMI 40.0-44.9, adult Z68.41 [place] [address] [place] [address] 92973- 2073 Jun, Methamphetamine use disorder, severe, 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 ; Psychosis, unspecified psychosis type F29 ; Personality disorder F60.9 ; Opioid use disorder, moderate, dependence F11.20 and Xanax use disorder, moderate F13.20 [place] [id number] [place] [address] 60950- 9147 Jun, Depressive disorder, not elsewhere classified F32.9 and Psychosis, unspecified psychosis type F29 [place] [id number] [place] [address] 41366- 6205 Jun, Lumbar radiculopathy, acute M54.16 [place] [id number] [place] [address] 49635- 8211 Jun, Lumbar radiculopathy, acute M54.16 ; Strain of abdominal wall, initial encounter S39.011A and BMI 40.0-44.9, adult Z68.41 [place] [address] 83689- 0475 Jun, [place] [id number] [place] [address] 64895- 1525 May, [place] [address] 98254- 4502 May, Methamphetamine use disorder, severe, 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 ; Psychosis, unspecified psychosis type F29 ; Personality disorder F60.9 ; Opioid use disorder, moderate, dependence F11.20 and Xanax use disorder, moderate F13.20 [place] [id number] [place] [address] 70359- 7031 May, [place] [address] 00065- 1737 May, [place] [id number] [place] [address] 01251- 9176 May, Lumbago with sciatica, left side M54.42 ; Lumbago with sciatica, right side M54.41 ; Other chronic pain G89.29 ; Weight gain R63.5 ; Acquired hypothyroidism E03.9 and BMI 40.0-44.9, adult Z68.41 [place] [address] 54064- 1608 Apr, Cigarette nicotine dependence without complication F17.210 [place] [id number] [place] [address] 48198- 8925 18 Apr, 2017 Acute bilateral low back pain without sciatica M54.5 [place] [id number] [place] [address] 20848- 7976 Apr, Methamphetamine use disorder, severe, 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 ; Psychosis, unspecified psychosis type F29 ; Personality disorder F60.9 ; Opioid use disorder, moderate, dependence F11.20 and Xanax use disorder, moderate F13.20 [facility] [address] 21137 -5885 Apr, Wheezing R06.2 and Bronchitis J40 [place] [address] 61262- 6606 Apr, Bronchitis J40 ; Cigarette nicotine dependence without complication F17.210 and Bipolar disease, chronic F31.9 [place] [address] 89163- 8283 Mar, Acquired hypothyroidism E03.[address] 31086- 0375 Mar, Acquired hypothyroidism E03.[address] 42898- 1955 Mar, Orthostatic hypotension I95.1 and Non-intractable vomiting with nausea, unspecified vomiting type R11.[address] 93898- 4613 Mar, Strain of lumbar region, initial encounter S39.012A [address] 06968- 5099 Mar, [facility] [address] 24769 -1165 Mar, Bronchitis J40 [place] [address] 71919- 0187 05 Mar, 2017 Degenerative joint disease M19.90 ; Elevated LFTs R79.89 ; Adenopathy R59.1 ; Drug use F19.90 ; Pre-diabetes R73.03 and COPD (chronic obstructive pulmonary disease) J44.9 [facility] [id number] [place] [address] 69134 -4184 30 Feb, 2017 Left hand pain M79.642 and Contusion of left hand, initial encounter S60.222A [place] [id number] [place] [address] 74725- 0891 07 Feb, 2017 Body aches R52 and Flu-like symptoms R68.89 [place] [address] 17568- 5004 Jan, [place] [address] 01096- 5194 18 Jan, 2017 Bipolar disease, chronic F31.9 ; Acquired hypothyroidism E03.9 and Encounter for immunization Z23 [facility] [place] [id number] [place] [address] 19867 -7106 05 Dec, 2016 Crushing injury of left wrist and hand, initial encounter S67.42XA [place] [address] 48618- 8179 Sep, [address] 16352- 6381 Sep, Bipolar disease, chronic F31.9 ; Panic disorder with agoraphobia F40.01 and Proteinuria, unspecified type R80.9 [place] [id number] [place] [address] 92641- 7951 August, [place] [id number] [place] [address] 58962- 6688 August, Degenerative joint disease M19.90 ; Left-sided chest wall pain R07.89 ; Bipolar disease, chronic F31.9 ; Type 2 diabetes mellitus without complication, without long-term current use of insulin E11.9 ; Acquired hypothyroidism E03.9 and Acute cystitis without hematuria N30.00 [place] [id number] [place] [address] 12948- 3680 07 Mar, [address] [place] [address]- 6712 30 Feb, 2016 [facility] [id number] [place] [address] 01091 -8792 Feb, Right hand pain M79.641 [facility] [id number] [place] [address] 09410 -2389 11 Feb, 2016 Bronchitis J40 ; Acute non-recurrent pansinusitis J01.40 and Seasonal allergic rhinitis due to other allergic trigger J30.89 [facility] [place] [id number] [place] [address] 27348- 1976 Dec, [facility] [id number] [place] [address] 75325 -6743 Mar, Left-sided chest wall pain R07.89 and Chronic pain G89.29 [facility] [place] [id number] [place] [address] 55547- 1574 Jul, [facility] [place] [id number] [place] [address] 68210- 9958 Jul, [facility] [place] [id number] [place] [address] 50423- 9684 May, [facility] [place] [id number] [place] [address] 53983- 3887 May, [facility] [place] [address] [place] [address] 41344- 5871 Apr, [facility] [place] [id number] [place] [address] 14015- 3021 Apr, [facility] [place] [id number] [place] [address] 88407- 3266 Mar, [facility] [place] [id number] [place] [address] 89554- 9932 Mar, [facility] [place] [address] [address]- 8041 Feb, [facility] [place] [id number] [place] [address]- 0316 06 Feb, 2014 [facility] [place] [facility] [address] [id number] [place] [address]- 3103 28 Jan, 2014 [facility] [place] [facility] [address] [id number] [place] [address]- 5997 28 Jan, 2014 [facility] [place] [facility] [address] [id number] [place] [address]- 8670 Jan, [facility] [place] [facility] [address] [id number] [place] [address]- 0231 28 Jan, 2014 [facility] [place] [facility] [address] [id number] [place] [address]- 5856 15 Jan, 2014 [facility] [place] [facility] [address] [id number] [place] [address]- 8205 15 Jan, 2014 [facility] [place] [facility] [address] [id number] [place] [address]- 7439 19 Dec, 2013 [facility] [place] [facility] [address] [id number] [place] [address]- 3104 19 Dec, 2013 [facility] [place] [facility] [address] [id number] [place] [address]- 9186 19 Dec, 2013 [facility] [place] [facility] [address] [id number] [place] [address]- 6898 19 Dec, 2013 [facility] [place] [facility] [address] [id number] [place] [address]- 2540 18 Dec, 2013 [facility] [place] [facility] [address] [id number] [place] [address]- 2541 18 Sep, 2013 [facility] [place] [facility] [address] [id number] [place] [address]- 4229 16 Dec, 2013 [facility] [place] [facility] [address] [id number] [place] [address]- 2545 16 Dec, 2013 [facility] [place] [facility] [address] [id number] [place] [address]- 0262 Sep, [facility] [place] [facility] [address] [id number] [place] [address]- 2616 Sep, [facility] [place] [facility] [address] [id number] [place] [address]- 3013 Jul, [facility] [place] [facility] [address] [id number] [place] [address]- 5811 Jul, [facility] [place] [facility] [address] [id number] [place] [address]- 3126 Jul, [facility] [place] [facility] [address] [id number] [place] [address]- 7935 Jul, [facility] [place] [facility] [address] [id number] [place] [address]- 2316 Jul, [facility] [place] [facility] [address] [id number] [place] [address]- 6923 Jul, [facility] [place] [facility] [address] [id number] [place] [address]- 9101 Jul, [facility] [place] [facility] [address] [id number] [place] [address]- 2324 Jul, [facility] [place] [facility] [address] [id number] [place] [address]- 7006 Jun, [facility] [place] [facility] [address] [id number] [place] [address]- 3192 Jun, [facility] [place] [facility] [address] [id number] [address]- 4003 May, [facility] [place] [facility] [address] [id number] [place] [address]- 1937 May, [facility] [place] [facility] [address] [id number] [place] [address]- 1347 May, [facility] [place] [facility] [address] [id number] [place] [address]- 4414 May, [facility] [place] [facility] [address] [id number] [place] [address]- 0639 Apr, [facility] [address] [id number] [place] [address]- 3177 Apr, [facility] [place] [facility] [address] [id number] [place] 7884 Mar, [facility] [place] [facility] [address] [id number] [place] [address]- 3653 Mar, [facility] [place] [facility] [address] [id number] [place] [address]- 4401 Feb, [facility] [place] [facility] [address] [id number] [place] [address]- 2416 Feb, [facility] [place] [facility] [address] [id number] [place] [address]- 8831 Feb, [facility] [place] [facility] [address] [id number] [place] [address]- 9786 Feb, [facility] [place] [facility] [address] [id number] [place] [address]- 4059 Jan, [facility] [place] [facility] [address] [id number] [place] [address]- 4938 Jan, [facility] [place] [facility] [address] [facility] [id number] [place] [address]- 0562 Jan, [facility] [place] [facility] [address] [id number] [place] [address]- 0201 Jan, [facility] [place] [facility] [address] [id number] [place] [address]- 1831 Jan, [facility] [place] [facility] [address] [id number] [place] [address]- 5526 Dec, [facility] [place] [facility] [address] [id number] [place] [address]- 6031 Dec, [facility] [place] [facility] [address] [id number] [place] [address]- 7715 Nov, [facility] [place] [facility] [address] [id number] [place] [address]- 1226 Sep, [facility] [address] [id number] [place] [address]- 2293 August, [facility] [address] [id number] [place] [address]- 2114 August, [facility] [address] [id number] [place] [address]- 7458 Jul, [facility] [address] [id number] [place] [address]- 2446 Jul, [facility] [address] [id number] [place] [address]- 6182 Jul, [facility] [address] [id number] [place] [address]- 2173 Jul, [facility] [address] [id number] [place] [address]- 9387 Jul, [facility] [address] [id number] [place] [address]- 6213 Jul, [facility] [address] [id number] [place] [address]- 9664 Jul, [facility] [address] [id number] [place] [address]- 9300 Jun, [facility] [address] [id number] [place] [address]- 1491 Jun, [facility] [address] [id number] [place] [address]- 4795 May, [facility] [address] [id number] [place] [address]- 2436 Apr, [facility] [address] [id number] [place] [address]- 6928 Apr, [facility] [address] [id number] [address]- 9903 Mar, [facility] [place] [facility] [address] [id number] [place] [address]- 4485 Mar, [facility] [place] [facility] [address] [id number] [place] [address]- 7316 Mar, [facility] [place] [facility] [address] [id number] [place] [address]- 4249 Feb, [facility] [place] [facility] [address] [id number] [place] [address]- 6148 Feb, [facility] [place] [facility] [address] [id number] [place] [address]- 3002 Feb, [facility] [place] [facility] [address] [id number] [place] [address]- 3153 Feb, [facility] [place] [facility] [address] [id number] [place] [address]- 1606 Feb, [facility] [place] [facility] [address] [id number] [place] [address]- 8948 Feb, [facility] [place] [facility] [address] [id number] [address]- 4330 16 Feb, 2012 [facility] [place] [facility] [address] [id number] [place] [address]- 8783 16 Feb, 2012 [facility] [place] [facility] [address] [id number] [address]- 0927 14 Feb, 2012 [facility] [place] [facility] [address] [id number] [address]- 5700 08 Feb, 2012 [facility] [place] [facility] [address] [id number] [address]- 3174 08 Feb, 2012 [facility] [place] [facility] [address] [id number] [address]- 2991 27 Dec, 2011 [facility] [place] [facility] [address] [id number] [address]- 2037 07 Dec, 2011 [facility] [place] [facility] [address] [id number] [place] [address]- 1482 Nov, [facility] [place] [facility] [address] [id number] [place] [address]- 7267 Nov, [facility] [place] [facility] [address] [id number] [place] [address]- 5606 Oct, [facility] [place] [facility] [address] [id number] [place] [address]- 6003 Oct, [facility] [place] [facility] [address] [id number] [place] [address]- 4256 Sep, [facility] [place] [facility] [address] [id number] [place] [address]- 4835 May, [facility] [place] [facility] [address] [id number] [place] [address]- 9384 May, [facility] [place] [facility] [address] [id number] [place] [address]- 7251 May, [facility] [place] [facility] [address] [id number] [place] [address]- 2530 Apr, [facility] [place] [facility] [address] [id number] [place] [address]- 0425 Mar, [facility] [place] [facility] [address] [id number] [place] [address]- 9034 Mar, [facility] [place] [facility] [address] [id number] [place] [address]- 7260 Feb, [facility] [place] [facility] [address] [id number] [place] [address]- 0020 Feb, [facility] [place] [facility] [address] [id number] [place] [address]- 9986 Feb, [facility] [place] [facility] [address] [id number] [place] [address]- 8836 14 Jan, 2011 [facility] [place] [facility] [address] [id number] [place] [address]- 8975 14 Jan, 2011 [facility] [place] [id number] [address] Dec, [facility] [place], [facility] [id number] [address] Mar, [facility] [place], [facility] [id number] [address] Feb, [facility] [place], [facility] [address] [id number] [address] Feb, [facility] [place], [facility] [id number] [address] Feb, [facility] [place], [facility] [id number] [place] [address] Jan, [facility] [place], [facility] [id number] [address] Dec, [facility] [place], [facility] [id number] [address] Nov, [facility] [place], [facility] [id number] [address] Sep, [facility] [place], [facility] [id number] [address] August, [facility] [place], [facility] [id number] [address] May, [facility] [place], [facility] [id number] [address] Mar, IMMUNIZATIONS No Known Immunizations SOCIAL HISTORY Never Assessed REASON FOR VISIT Transition of Care WB-MA, Lower back pain , Right hip pain that causes right leg to go numb, Patient does not want to take Mobic anymore, COPD PLAN OF CARE VITAL SIGNS Height 63 in 2017-08-17 Weight 257 lbs 2017-08-17 Temperature 96.8 degrees Fahrenheit 2017-08-17 Heart Rate 96 bpm 2017-08-17 Respiratory Rate 20 2017-08-17 Oximetry on room air:96 % 2017-08-17 BMI 45.52 kg/m2 2017-08-17 Blood pressure systolic 124 mmHg 2017-08-17 Blood pressure diastolic 78 mmHg 2017-08-17 MEDICATIONS Medication Instructions Dosage Frequency Start Date End Date Duration Status ProAir HFA 108 (90 Base) MCG/ACT Inhalation every 6 hrs 2 puffs as needed 6h Mar, Active Valium 5 mg Orally Twice a day, for procedure 1 tablet as needed August, Active Womens One Daily - Active Synthroid 50 mcg Orally Once a day 1 tablet on an empty stomach in the morning 24h August, Active Seroquel 300 MG Orally Once a day 1 tablet 24h Apr, 30 days Active HydrOXYzine HCl 50 MG Orally three times a day as needed for anxiety 1-2 tab May, 30 days Active Tizanidine HCl 4 MG Orally Three times a day 1 tablet as needed 8h August, Active Diclofenac Sodium 75 MG Orally Twice a day 1 tablet with food or milk 12h August, Dec, 30 day(s) Active RESULTS No Results PROCEDURES No Known [...] suicide ideat and attempts. [facility] [place], [place] last around 2006 Hospitalization History left foot swollen, stepped in [facility] ER 05/02/17
--- OUTSIDE RECORDS SUMMARY | 2017-12-24 02:45 | XMS REPORT ---
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 Active [id number] Problem COPD (chronic obstructive pulmonary disease) J44.9 Active 75562343 Problem Bipolar disease, chronic F31.9 Active 32421540 Problem Morbid (severe) obesity due to excess calories E66.01 Active 02840628249583 Problem Body mass index (BMI) of 40.0-44.9 in adult Z68.41 Active 045274213 Problem Right sciatic nerve pain M54.31 Active 56852294 Problem Depressive disorder, not elsewhere classified F32.9 Active 53837523 Problem Acquired hypothyroidism E03.9 Active 028374605 Problem Pre-diabetes R73.03 Active 656349269 Problem Degenerative joint disease M19.90 Active 162438785 Problem Chronic pain G89.29 Active 53173422 Problem Methamphetamine use disorder, severe, 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 Active 82806230 Problem Opioid use disorder, moderate, dependence F11.20 Active 47205836 Problem Cigarette nicotine dependence without complication F17.210 Active 53522846 Problem Psychosis, unspecified psychosis type F29 Active 45687679 Problem Xanax use disorder, moderate F13.20 Active 538775635 Problem Personality disorder F60.9 Active 29816397 ALLERGIES Substance Reaction Event Type Date Status Tramadol HCl nausea and vomiting Drug Allergy 19 Apr, 2018 Active Penicillin V Potassium anaphylaxis Drug Allergy Jul, Active Naproxen swelling Drug Allergy Jul, Active Keflex anaphylaxis Drug Allergy Jul, Active Ibuprofen nausea and vomitting Drug Allergy Jul, Active Aspirin hives Drug Allergy Jul, Active ENCOUNTERS Encounter Location Date Diagnosis [facility] [id number] [place] [address] 19061- 5623 Dec, [facility] [address] [address] Oct, Breast pain N64.4 ; Fibrocystic changes of left breast N60.12 and Bilateral otitis media with effusion H65.93 [facility] [id number] [place] [address] 77762 -7863 Sep, 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 [facility] [id number] [place] [address] 48529- 2033 Sep, [place] [id number] [place] [address] 31678- 5218 Sep, Methamphetamine use disorder, severe, 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 ; Psychosis, unspecified psychosis type F29 ; Personality disorder F60.9 ; Opioid use disorder, moderate, dependence F11.20 ; Xanax use disorder, moderate F13.20 and BMI 40.0-44.9, adult Z68.41 [facility] [id number] [place] [address] 26512- 5677 Sep, Depressive disorder, not elsewhere classified F32.9 and Psychosis, unspecified psychosis type F29 [facility] [id number] [place] [address] 32252- 1884 August, [place] [id number] [place] [address] 64737- 6293 August, Depressive disorder, not elsewhere classified F32.9 and Psychosis, unspecified psychosis type F29 [place] [id number] [place] [address] 61667- 1745 August, [facility] [address] [address] August, Lumbago with sciatica, right side M54.41 and Other chronic pain G89.29 [facility] [address] [address] Jul, Right sciatic nerve pain M54.31 [facility] [id number] [place] [address] 18340- 7767 Jul, Acquired hypothyroidism E03.9 [facility] [id number] [place] [address] 59430- 5676 Jul, Depressive disorder, not elsewhere classified F32.9 and Psychosis, unspecified psychosis type F29 [facility] [id number] [place] [address] 03892- 2549 Jul, Acquired hypothyroidism E03.9 ; Lumbago with sciatica, right side M54.41 and Lumbar radiculopathy, acute M54.16 [facility] [address] [place] [address] 09472- 8331 Jul, Methamphetamine use disorder, severe, 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 ; Psychosis, unspecified psychosis type F29 ; Personality disorder F60.9 ; Opioid use disorder, moderate, dependence F11.20 ; Xanax use disorder, moderate F13.20 and BMI 40.0-44.9, adult Z68.41 [facility] [address] [place] [address] 88480- 1311 Jun, Methamphetamine use disorder, severe, 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 ; Psychosis, unspecified psychosis type F29 ; Personality disorder F60.9 ; Opioid use disorder, moderate, dependence F11.20 and Xanax use disorder, moderate F13.20 [facility] [facility] [address] [address]- 9842 Jun, Depressive disorder, not elsewhere classified F32.9 and Psychosis, unspecified psychosis type F29 [facility] [address] [address]- [address]05 Jun, Lumbar radiculopathy, acute M54.16 [place] [address] [id number]- 2179 Jun, Lumbar radiculopathy, acute M54.16 ; Strain of abdominal wall, initial encounter S39.011A and BMI 40.0-44.9, adult Z68.41 [facility] [address] 21839- 5187 Jun, [place] [address] 06111- 2890 May, [place] [address] 35016- 3255 May, Methamphetamine use disorder, severe, 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 ; Psychosis, unspecified psychosis type F29 ; Personality disorder F60.9 ; Opioid use disorder, moderate, dependence F11.20 and Xanax use disorder, moderate F13.20 [place] [address] 34524- 6057 May, [place] [address] 53234- 3558 May, [place] [address] 30294- 8899 May, Lumbago with sciatica, left side M54.42 ; Lumbago with sciatica, right side M54.41 ; Other chronic pain G89.29 ; Weight gain R63.5 ; Acquired hypothyroidism E03.9 and BMI 40.0-44.9, adult Z68.41 [place] [address] [place] 17481469- 8393 Apr, Cigarette nicotine dependence without complication F17.210 [facility] [address] 45613- 9171 18 Apr, 2017 Acute bilateral low back pain without sciatica M54.5 [facility] [id number] [place] [address] 08086- 3323 Apr, Methamphetamine use disorder, severe, 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 ; Psychosis, unspecified psychosis type F29 ; Personality disorder F60.9 ; Opioid use disorder, moderate, dependence F11.20 and Xanax use disorder, moderate F13.20 [facility] [address] 90862 -1679 Apr, Wheezing R06.2 and Bronchitis J40 [place] [address] 42312- 6088 Apr, Bronchitis J40 ; Cigarette nicotine dependence without complication F17.210 and Bipolar disease, chronic F31.9 [place] [address] 61463- 3179 Mar, Acquired hypothyroidism E03.9 [place] [address] 65704- 1928 Mar, Acquired hypothyroidism E03.9 [facility] [address] 63881- 1486 Mar, Orthostatic hypotension I95.1 and Non-intractable vomiting with nausea, unspecified vomiting type R11.2 [facility] [id number] [place] [address] 38114- 2830 Mar, Strain of lumbar region, initial encounter S39.012A [place] [address] 33952- 8180 Mar, [facility] [address] 26815 -8055 Mar, Bronchitis J40 [place] [address] 29004- 8171 05 Mar, 2017 Degenerative joint disease M19.90 ; Elevated LFTs R79.89 ; Adenopathy R59.1 ; Drug use F19.90 ; Pre-diabetes R73.03 and COPD (chronic obstructive pulmonary disease) J44.9 [facility] [address] [place] [address] 95513 -0871 30 Feb, 2017 Left hand pain M79.642 and Contusion of left hand, initial encounter S60.222A [facility] [id number] [place] [address] 76143- 5527 07 Feb, 2017 Body aches R52 and Flu-like symptoms R68.89 [place] [id number] [place] [address] 35585- 6428 Jan, [place] [address] 06538- 0864 Jan, Bipolar disease, chronic F31.9 ; Acquired hypothyroidism E03.9 and Encounter for immunization Z23 [facility] [id number] [place] [address] 74298 -2728 05 Dec, 2016 Crushing injury of left wrist and hand, initial encounter S67.42XA [place] [id number] [place] [address] 69115- 8671 Sep, [address] [address]69- 9157 Sep, Bipolar disease, chronic F31.9 ; Panic disorder with agoraphobia F40.01 and Proteinuria, unspecified type R80.9 [place] [id number] [place] [address] 46761- 7996 August, [place] [id number] [place] [address] 43706- 9562 August, Degenerative joint disease M19.90 ; Left-sided chest wall pain R07.89 ; Bipolar disease, chronic F31.9 ; Type 2 diabetes mellitus without complication, without long-term current use of insulin E11.9 ; Acquired hypothyroidism E03.9 and Acute cystitis without hematuria N30.00 [place] [id number] [place] [address] 05494- 6615 07 Mar, 2016 [place] [id number] [address]- 6980 30 Feb, 2016 [facility] [id number] [place] [address] 37758 -7289 Feb, Right hand pain M79.641 [facility] [id number] [place] [address] 05501 -2962 11 Feb, 2016 Bronchitis J40 ; Acute non-recurrent pansinusitis J01.40 and Seasonal allergic rhinitis due to other allergic trigger J30.89 [facility] [id number] [place] [address] 54567- 9300 Dec, [facility] [id number] [place] [address] 10425 -5172 Mar, Left-sided chest wall pain R07.89 and Chronic pain G89.29 [facility] [id number] [place] [address] 90838- 3852 Jul, [facility] [id number] [place] [address] 22199- 8634 Jul, [facility] [id number] [place] [address] 81925- 5607 May, [facility] [id number] [place] [address] 16548- 6640 May, [facility] [id number] [place] [address] 36560- 5261 Apr, [facility] [id number] [place] [address] 76948- 2975 Apr, [facility] [id number] [place] [address] 70829- 5132 Mar, [facility] [id number] [place] [address] 74473- 4728 Mar, [facility] [id number] [place] [address] 79938- 0778 Feb, [facility] [place] [facility] [address] [id number] [place] [address]- 2139 Feb, [facility] [place] [facility] [address] [id number] [place] [address]- 8674 28 Jan, 2014 [facility] [place] [facility] [address] [id number] [place] [address]- 4328 Jan, [facility] [place] [facility] [address] [id number] [place] [address]- 0894 Jan, [facility] [place] [facility] [address] [id number] [place] [address]- 2971 28 Jan, 2014 [facility] [place] [facility] [address] [id number] [place] [address]- 3156 15 Jan, 2014 [facility] [place] [facility] [address] [id number] [place] [address]- 5415 15 Jan, 2014 [facility] [place] [facility] [address] [id number] [place] [address]- 3623 19 Dec, 2013 [facility] [place] [facility] [address] [id number] [place] [address]- 5264 19 Dec, 2013 [facility] [place] [facility] [address] [id number] [place] [address]- 3852 19 Dec, 2013 [facility] [place] [facility] [address] [id number] [place] [address]- 3714 19 Sep, 2013 [facility] [place] [facility] [address] [id number], [place] [address]- 6495 18 Sep, 2013 [facility] [place] [facility] [address] [id number] [place] [address]- 7050 18 Sep, 2013 [facility] [place] [facility] [address] [id number] [place] [address]- 4283 16 Sep, 2013 [facility] [place] [facility] [address] [id number] [place] [address]- 3358 16 Sep, 2013 [facility] [place] [facility] [address] [id number] [place] [address]- 5280 Sep, [facility] [place] [facility] [address] [id number] [place] [address]- 5380 Sep, [facility] [place] [facility] [address] [id number] [place] [address]- 2360 Jul, [facility] [place] [facility] [address] [id number] [place] [address]- 8535 Jul, [facility] [place] [facility] [address] [id number] [place] [address]- 3984 Jul, [facility] [place] [facility] [address] [id number] [place] [address]- 7453 Jul, [facility] [place] [facility] [address] [id number] [place] [address]- 1293 Jul, [facility] [place] [facility] [address] [id number] [place] [address]- 3940 Jul, [facility] [place] [facility] [address] [id number] [place] [address]- 1222 Jul, [facility] [place] [facility] [address] [id number] [place] [address]- 4861 Jul, [facility] [place] [facility] [address] [id number] [place] [address]- 4945 Jun, [facility] [place] [facility] [address] [id number] [place] [address]- 2475 Jun, [facility] [place] [facility] [address] [id number], [place] [address]- 3595 May, [facility] [place] [facility] [address] [id number] [place] [address]- 9475 May, [facility] [place] [facility] [address] [id number] [place] [address]- 5075 May, [facility] [place] [facility] [address] [id number] [place] [address]- 6352 May, [facility] [place] [facility] [address] [id number] [place] [address]- 6713 Apr, [facility] [place] [facility] [address] [id number] [place] [address]- 1148 Apr, [facility] [place] [facility] [address] [id number] [place] [address]- 4291 Mar, [facility] [place] [facility] [address] [id number] [place] [address]- 3053 Mar, [facility] [place] [facility] [address] [id number] [place] [address]- 0355 Feb, [facility] [place] [facility] [address] [id number] [place] [address]- 9284 Feb, [facility] [place] [facility] [address] [id number] [place] [address]- 1578 Feb, [facility] [place] [facility] [address] [id number] [place] [address]- 5359 Feb, [facility] [place] [facility] [address] [id number] [place] [address]- 0690 Jan, [facility] [place] [facility] [address] [id number] [place] [address]- 6035 Jan, [facility] [place] [facility] [address] [facility] [id number] [place] [address]- 8358 Jan, [facility] [place] [facility] [address] [id number] [place] [address]- 2475 Jan, [facility] [place] [facility] [address] [id number] [place] [address]- 9656 Jan, [facility] [place] [facility] [address] [id number] [place] [address]- 6345 Dec, [facility] [place] [facility] [address] [id number] [place] [address]- 4697 Dec, [facility] [place] [facility] [address] [id number] [place] [address]- 4959 Nov, [facility] [address] [id number] [place] [address]- 4235 Sep, [facility] [address] [id number] [place] [address]- 1927 August, [facility] [address] [id number] [place] [address]- 7862 August, [facility] [place] [facility] [address] [id number] [place] [address]- 5599 Jul, [facility] [address] [id number] [place] [address]- 1955 Jul, [facility] [address] [id number] [place] [address]- 4159 Jul, [facility] [place] [facility] [address] [id number] [place] [address]- 5949 Jul, [facility] [place] [facility] [address] [id number] [place] [address]- 8027 Jul, [facility] [place] [facility] [address] [id number] [place] [address]- 7069 Jul, [facility] [place] [facility] [address] [id number] [place] [address]- 7355 Jul, [facility] [place] [facility] [address] [id number] [place] [address]- 5732 Jun, [facility] [place] [facility] [address] [id number], [place] [address] 254 Jun, [facility] [place] [facility] [address] [id number] [place] [address]- 2543 May, [facility] [place] [facility] [address] [id number] [place] [address]- 0136 Apr, [facility] [place] [facility] [address] [id number] [place] [address]- 2546 Apr, [facility] [place] [facility] [address] [id number] [place] [address]- 6489 Mar, [facility] [address] [id number] [place] [address]- 8541 Mar, [facility] [place] [facility] [address] [id number] [place] [address]- 4342 Mar, [facility] [place] [facility] [address] [id number] [place] [address]- 8398 24 Feb, 2012 [facility] [place] [facility] [address] [id number] [place] [address]- 2532 24 Feb, 2012 [facility] [place] [facility] [address] [id number] [place] [address]- 9986 24 Feb, 2012 [facility] [place] [facility] [address] [id number] [place] [address]- 0913 Feb, [facility] [place] [facility] [address] [id number] [place] [address]- 3270 Feb, [facility] [place] [facility] [address] [id number] [place] [address]- 6881 19 Feb, 2012 [facility] [place] [facility] [address] [id number] [place] [address]- 1247 16 Feb, 2012 [facility] [place] [facility] [address] [id number] [place] [address]- 1004 16 Feb, 2012 [facility] [place] [facility] [address] [id number] [place] [address]- 8111 14 Feb, 2012 [facility] [place] [facility] [address] [id number] [place] [address]- 8096 08 Feb, 2012 [facility] [place] [facility] [address] [id number] [place] [address]- 1695 08 Feb, 2012 [facility] [place] [facility] [address] [id number] [place] [address]- 5259 27 Dec, 2011 [facility] [place] [facility] [address] [id number] [place] [address]- 1295 Dec, [facility] [place] [facility] [address] [id number] [place] [address]- 0925 Nov, [facility] [place] [facility] [address] [id number] [place] [address]- 8347 Nov, [facility] [place] [facility] [address] [id number] [place] [address]- 4404 Oct, [facility] [place] [facility] [address] [id number] [place] [address]- 7762 Oct, [facility] [place] [facility] [address] [id number] [place] [address]- 8831 Sep, [facility] [place] [facility] [address] [id number] [place] [address]- 6576 May, [facility] [place] [facility] [address] [id number] [place] [address]- 9075 May, [facility] [place] [facility] [address] [id number] [place] [address]- 4803 May, [facility] [place] [facility] [address] [id number] [place] [address]- 3098 Apr, [facility] [place] [facility] [address] [id number] [place] [address]- 3948 Mar, [facility] [place] [facility] [address] [id number] [place] [address]- 6762 Mar, [facility] [place] [facility] [address] [id number], [place] [address]- 1686 Feb, [facility] [place] [facility] [address] [id number] [place] [address]- 8566 Feb, [facility] [place] [facility] [address] [id number] [place] [address]- 5976 Feb, [facility] [place] [facility] [address] [id number] [place] [address]- 2542 Jan, [facility] [place] [facility] [id number], [place] [address]- 5256 14 Jan, 2011 [facility] [address] [address]- 5376 Dec, [facility] [address] [address]- 5756 Mar, [facility] [id number] [place] [address] 80039- 5076 Feb, [facility] [id number] [place] [address] 27723- 8206 Feb, [facility] [id number] [place] [id number]- [id number] Feb, [facility] [id number] [place] [phone] Jan, [facility] [id number] [place] [id number] Dec, [facility] [id number], [place] [address] Nov, [facility] [id number] [place] [id number] Sep, [facility] [id number], [place] [address] August, [facility] [id number], [place] [address] May, [facility] [id number], [place] [address] Mar, IMMUNIZATIONS No Known Immunizations SOCIAL HISTORY Never Assessed REASON FOR VISIT leg pain Pt c/o R thigh pain for 6 days, states she has swelling in that area and numbness below the area ELO Fan PLAN OF CARE Activity Details Follow Up next week with Dr. Kc. Reason: VITAL SIGNS Height 63 in 2017-07-27 Weight 256.6 lbs 2017-07-27 Temperature 97.5 degrees Fahrenheit 2017-07-27 Heart Rate 78 bpm 2017-07-27 Respiratory Rate 20 2017-07-27 BMI 45.45 kg/m2 2017-07-27 Blood pressure systolic 110 mmHg 2017-07-27 Blood pressure diastolic 72 mmHg 2017-07-27 MEDICATIONS Medication Instructions Dosage Frequency Start Date End Date Duration Status Gabapentin 300 MG Orally twice a day 1 capsule 12h Jun, 30 days Active Mobic 15 mg Orally Once a day 1 tablet 24h August, 30 days Active HydrOXYzine HCl 50 MG Orally three times a day as needed for anxiety 1-2 tab May, 30 days Active Synthroid 50 mcg Orally Once a day 1 tablet on an empty stomach in the morning 24h August, Active Womens One Daily - Active ProAir HFA 108 (90 Base) MCG/ACT Inhalation every 6 hrs 2 puffs as needed 6h Mar, Active Seroquel 300 MG Orally Once a day 1 tablet 24h Apr, 30 days Active Cyclobenzaprine HCl 10 mg Orally 2 times a day 1 tablet as needed 12h Apr, 30 days Active RESULTS No Results PROCEDURES No Known [...] suicide ideat and attempts. [facility] [place], [place] last around 2006 Hospitalization History left foot swollen, stepped in [facility] 05/02/17
--- OUTSIDE RECORDS SUMMARY | 2017-12-24 02:46 | XMS REPORT ---
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 Active [id number] Problem COPD (chronic obstructive pulmonary disease) J44.9 Active 99882191 Problem Bipolar disease, chronic F31.9 Active 99112089 Problem Morbid (severe) obesity due to excess calories E66.01 Active 99546130252157 Problem Body mass index (BMI) of 40.0-44.9 in adult Z68.41 Active 695042076 Problem Right sciatic nerve pain M54.31 Active 18821764 Problem Depressive disorder, not elsewhere classified F32.9 Active 99254657 Problem Acquired hypothyroidism E03.9 Active 989475482 Problem Pre-diabetes R73.03 Active 104341978 Problem Degenerative joint disease M19.90 Active 958542052 Problem Chronic pain G89.29 Active 84958811 Problem Methamphetamine use disorder, severe, 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 Active 50170185 Problem Opioid use disorder, moderate, dependence F11.20 Active 26744474 Problem Cigarette nicotine dependence without complication F17.210 Active 94288672 Problem Psychosis, unspecified psychosis type F29 Active 95852949 Problem Xanax use disorder, moderate F13.20 Active 529358631 Problem Personality disorder F60.9 Active 93357206 ALLERGIES No Information ENCOUNTERS Encounter Location Date Diagnosis [facility] [id number] [place] [address]205- 4562 Dec, [place] [address] [address]- 2981 Oct, Breast pain N64.4 ; Fibrocystic changes of left breast N60.12 and Bilateral otitis media with effusion H65.93 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 ; Psychosis, unspecified psychosis type F29 ; Personality disorder F60.9 ; Opioid use disorder, moderate, dependence F11.20 ; Xanax use disorder, moderate F13.20 and BMI 40.0-44.9, adult Z68.41 [place] [id number] [place] [address] 48630- 0131 Sep, Depressive disorder, not elsewhere classified F32.9 and Psychosis, unspecified psychosis type F29 [place] [id number] [place] [address] 23484- 4864 August, [place] [id number] [place] [address] 84703- 5258 August, Depressive disorder, not elsewhere classified F32.9 and Psychosis, unspecified psychosis type F29 [place] [id number] [place] [address] 18175- 8799 August, [place] [address] 45885- 8643 August, Lumbago with sciatica, right side M54.41 and Other chronic pain G89.29 [facility] [id number] [place] [address] 77955 -5313 Jul, Right sciatic nerve pain M54.31 [place] [id number] [place] [address] 49578- 3573 Jul, Acquired hypothyroidism E03.9 [place] [id number] [place] [address] 53929- 3775 Jul, Depressive disorder, not elsewhere classified F32.9 and Psychosis, unspecified psychosis type F29 [place] [id number] [place] [address] 17505- 4839 Jul, Acquired hypothyroidism E03.9 ; Lumbago with sciatica, right side M54.41 and Lumbar radiculopathy, acute M54.16 [place] [id number] [place] [address] 22998- 2734 Jul, Methamphetamine use disorder, severe, 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 ; Psychosis, unspecified psychosis type F29 ; Personality disorder F60.9 ; Opioid use disorder, moderate, dependence F11.20 ; Xanax use disorder, moderate F13.20 and BMI 40.0-44.9, adult Z68.41 [place] [id number] [place] [address] 89988- 0488 Jun, Methamphetamine use disorder, severe, 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 ; Psychosis, unspecified psychosis type F29 ; Personality disorder F60.9 ; Opioid use disorder, moderate, dependence F11.20 and Xanax use disorder, moderate F13.20 [place] [id number] [place] [address] 15875- 4272 Jun, Depressive disorder, not elsewhere classified F32.9 and Psychosis, unspecified psychosis type F29 [place] [id number] [place] [address] 98533- 0713 Jun, Lumbar radiculopathy, acute M54.16 [place] [id number] [place] [address] 76464- 5626 Jun, Lumbar radiculopathy, acute M54.16 ; Strain of abdominal wall, initial encounter S39.011A and BMI 40.0-44.9, adult Z68.41 [place] [id number] [place] [address] 20218- 4995 Jun, [place] [id number] [place] [address] 47633- 8993 May, [place] [address] [place] 586815- 3512 May, Methamphetamine use disorder, severe, 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 ; Psychosis, unspecified psychosis type F29 ; Personality disorder F60.9 ; Opioid use disorder, moderate, dependence F11.20 and Xanax use disorder, moderate F13.20 [place] [id number] [place] [address] 31216- 2499 May, [place] [id number] [place] [address] 51005- 3152 May, [place] [id number] [place] [address] 48716- 2957 May, Lumbago with sciatica, left side M54.42 ; Lumbago with sciatica, right side M54.41 ; Other chronic pain G89.29 ; Weight gain R63.5 ; Acquired hypothyroidism E03.9 and BMI 40.0-44.9, adult Z68.41 [place] [id number] [place] [address] 68479- 7706 Apr, Cigarette nicotine dependence without complication F17.210 [place] [id number] [place] [address] 90452- 7211 Apr, Acute bilateral low back pain without sciatica M54.5 [place] [id number] [place] [address] 98555- 9482 Apr, Methamphetamine use disorder, severe, 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 ; Psychosis, unspecified psychosis type F29 ; Personality disorder F60.9 ; Opioid use disorder, moderate, dependence F11.20 and Xanax use disorder, moderate F13.20 [facility] [address] 04[address] -8106 12 Apr, 2017 Wheezing R06.2 and Bronchitis J40 [place] [address] 49092- 2797 02 Apr, 2017 Bronchitis J40 ; Cigarette nicotine dependence without complication F17.210 and Bipolar disease, chronic F31.9 [place] [address] 25622- 4935 Mar, Acquired hypothyroidism E03.9 [place] [address] 24861- 1662 Mar, Acquired hypothyroidism E03.9 [place] [address] 54381- 9600 Mar, Orthostatic hypotension I95.1 and Non-intractable vomiting with nausea, unspecified vomiting type R11.2 [place] [address] 69128- 0348 14 Mar, 2017 Strain of lumbar region, initial encounter S39.012A [place] [address] 11820- 7018 Mar, [facility] [place] [address] 13498 -2308 Mar, Bronchitis J40 [place] [address] 69051- 2043 05 Mar, 2017 Degenerative joint disease M19.90 ; Elevated LFTs R79.89 ; Adenopathy R59.1 ; Drug use F19.90 ; Pre-diabetes R73.03 and COPD (chronic obstructive pulmonary disease) J44.9 [facility] [place] [address] 42052 -8825 Feb, Left hand pain M79.642 and Contusion of left hand, initial encounter S60.222A [address] [place] [address]- 0876 07 Feb, 2017 Body aches R52 and Flu-like symptoms R68.89 [place] [address] 22828- 1638 Jan, [place] [address] 84009- 3303 18 Jan, 2017 Bipolar disease, chronic F31.9 ; Acquired hypothyroidism E03.9 and Encounter for immunization Z23 [facility] [place] [address] 63379 -5136 05 Dec, 2016 Crushing injury of left wrist and hand, initial encounter S67.42XA [place] [address] 90788- 6765 Sep, [place] [address] 47505- 0751 Sep, Bipolar disease, chronic F31.9 ; Panic disorder with agoraphobia F40.01 and Proteinuria, unspecified type R80.9 [place] [id number] [place] [address] 57042- 6264 August, [place] [address] 45087- 1712 August, Degenerative joint disease M19.90 ; Left-sided chest wall pain R07.89 ; Bipolar disease, chronic F31.9 ; Type 2 diabetes mellitus without complication, without long-term current use of insulin E11.9 ; Acquired hypothyroidism E03.9 and Acute cystitis without hematuria N30.00 [place] [id number] [place] [address] 55467- 3961 Mar, [place] [address] 79116- 2132 Feb, [facility] [id number] [place] [address] 94763 -3933 Feb, Right hand pain M79.641 [facility] [address] [address] Feb, Bronchitis J40 ; Acute non-recurrent pansinusitis J01.40 and Seasonal allergic rhinitis due to other allergic trigger J30.89 [facility] [address] [address]- 0258 29 Dec, 2015 [facility] [id number] [place] [address] 19821 -1707 Mar, Left-sided chest wall pain R07.89 and Chronic pain G89.29 [facility] [id number] [place] [address] 08730- 4132 Jul, [facility] [id number] [place] [address] 26002- 8967 Jul, [facility] [id number] [place] [address] 65455- 6493 May, [facility] [id number] [place] [address] 52358- 7325 May, [facility] [address] [place] [address] 68265- 3571 Apr, [facility] [id number] [address]- 6414 Apr, [facility] [address] [place] [address]- 9348 Mar, [facility] [address] [place] [address]- 3015 Mar, [facility] [address] [place] [address]- 2772 Feb, [facility] [address] [place] [address]- 5552 Feb, [facility] [address] [address]- 6649 Jan, [facility] [id number] [place] [address]- 2366 28 Jan, 2014 [facility] [place] [facility] [address] [id number] [place] [address]- 8976 28 Jan, 2014 [facility] [place] [facility] [address] [id number] [place] [address]- 0565 28 Jan, 2014 [facility] [place] [facility] [address] [id number] [place] [address]- 9080 15 Jan, 2014 [facility] [place] [facility] [address] [id number] [place] [address]- 2600 15 Jan, 2014 [facility] [place] [facility] [address] [id number] [place] [address]- 7043 19 Dec, 2013 [facility] [place] [facility] [address] [id number] [place] [address]- 0408 19 Dec, 2013 [facility] [place] [facility] [address] [id number] [place] [address]- 6791 19 Dec, 2013 [facility] [place] [facility] [address] [id number] [place] [address]- 8177 19 Dec, 2013 [facility] [place] [facility] [address] [id number] [place] [address]- 1027 18 Dec, 2013 [facility] [place] [facility] [address] [id number] [place] [address]- 0279 18 Dec, 2013 [facility] [place] [facility] [address] [id number] [place] [address]- 8292 16 Dec, 2013 [facility] [place] [facility] [address] [id number] [place] [address]- 0101 16 Dec, 2013 [facility] [place] [facility] [address] [id number] [place] [address]- 9118 17 Sep, 2013 [facility] [place] [facility] [address] [id number] [place] [address]- 0311 17 Sep, 2013 [facility] [place] [facility] [address] [id number] [place] [address]- 0659 15 Jul, 2013 [facility] [place] [facility] [address] [id number] [place] [address]- 1607 15 Jul, 2013 [facility] [place] [facility] [address] [id number] [place] [address]- 5908 Jul, [facility] [place] [facility] [address] [id number] [place] [address]- 4522 Jul, [facility] [place] [facility] [address] [id number] [place] [address]- 7875 Jul, [facility] [place] [facility] [address] [id number] [place] [address]- 4874 Jul, [facility] [place] [facility] [address] [id number] [place] [address]- 8368 Jul, [facility] [place] [facility] [address] [id number] [place] [address]- 5566 Jul, [facility] [place] [facility] [address] [id number] [place] [address]- 0768 Jun, [facility] [place] [facility] [address] [id number] [place] [address]- 8437 Jun, [facility] [place] [facility] [address] [id number] [place] [address]- 9975 May, [facility] [place] [facility] [address] [id number] [place] [address]- 6049 May, [facility] [place] [facility] [address] [id number] [place] [address]- 2269 May, [facility] [place] [facility] [address] [id number] [place] [address]- 8318 May, [facility] [place] [facility] [address] [id number] [place] [address]- 0348 Apr, [facility] [place] [facility] [address] [id number] [place] [address]- 6949 Apr, [facility] [place] [facility] [address] [id number] [place] [address]- 8408 Mar, [facility] [place] [facility] [address] [id number] [place] [address]- 8568 Mar, [facility] [place] [facility] [address] [id number] [place] [address]- 8075 Feb, [facility] [place] [facility] [address] [id number] [place] [address]- 2079 Feb, [facility] [place] [facility] [address] [id number] [place] [address]- 3446 Feb, [facility] [place] [facility] [address] [id number] [place] [address]- 8880 Feb, [facility] [place] [facility] [address] [id number] [place] [address]- 3809 Jan, [facility] [place] [facility] [address] [id number] [place] [address]- 9125 Jan, [facility] [place] [facility] [address] [id number] [place] [address]- 3825 Jan, [facility] [place] [facility] [address] [id number] [place] [address]- 1241 Jan, [facility] [place] [facility] [address] [facility] [id number] [place] [address]- 3227 Jan, [facility] [place] [facility] [address] [id number] [place] [address]- 4713 Dec, [facility] [place] [facility] [address] [id number], [place] [address]- 2547 Dec, [facility] [place] [facility] [address] [id number] [place] [address]- 7037 Nov, [facility] [place] [facility] [address] [id number] [place] [address] 2546 Sep, [facility] [place] [facility] [address] [facility] [id number] [place] [address]- 2559 August, [facility] [place] [facility] [address] [id number] [place] [address]- 4982 August, [facility] [address] [id number] [place] [address]- 3061 Jul, [facility] [address] [id number] [place] [address]- 9648 Jul, [facility] [address] [id number] [place] [address]- 6820 Jul, [facility] [address] [id number] [place] [address]- 7735 Jul, [facility] [address] [id number] [place] [address]- 4088 Jul, [facility] [address] [id number] [place] [address]- 0970 Jul, [facility] [address] [id number] [place] [address]- 9414 Jul, [facility] [address] [id number] [place] [address]- 3251 Jun, [facility] [address] [id number] [place] [address]- 0726 Jun, [facility] [address] [id number] [place] [address]- 6987 May, [facility] [address] [id number] [place] [address]- 2424 Apr, [facility] [address] [id number] [place] [address]- 6463 Apr, [facility] [address] [id number] [place] [address]- 5918 Mar, [facility] [address] [id number] [place] [address]- 1962 Mar, [facility] [address] [id number], [place] [address]- 6019 Mar, [facility] [place] [facility] [address] [id number] [place] [address]- 5838 Feb, [facility] [place] [facility] [address] [id number] [place] [address]- 5528 Feb, [facility] [place] [facility] [address] [id number] [place] [address]- 4365 Feb, [facility] [place] [facility] [address] [id number] [place] [address]- 5132 Feb, [facility] [place] [facility] [address] [id number] [place] [address]- 4521 Feb, [facility] [place] [facility] [address] [id number] [place] [address]- 6965 Feb, [facility] [place] [facility] [address] [id number] [place] [address]- 0501 16 Feb, 2012 [facility] [place] [facility] [address] [id number] [place] [address]- 1407 16 Feb, 2012 [facility] [place] [facility] [address] [id number] [place] [address]- 8006 14 Feb, 2012 [facility] [place] [facility] [address] [id number] [place] [address]- 3935 Feb, [facility] [place] [facility] [address] [id number], [place] [address]- 9178 08 Feb, 2012 [facility] [place] [facility] [address] [id number], [place] [address]- 7358 27 Dec, 2011 [facility] [place] [facility] [address] [id number] [place] [address]- 7195 07 Dec, 2011 [facility] [place] [facility] [address] [id number] [place] [address]- 4645 30 Nov, 2011 [facility] [place] [facility] [address] [id number] [place] [address]- 7763 Nov, [facility] [place] [facility] [address] [id number] [place] [address]- 8905 Oct, [facility] [address] [id number] [place] [address]- 4896 Oct, [facility] [place] [facility] [address] [id number] [place] [address]- 0216 Sep, [facility] [place] [facility] [address] [id number] [place] [address]- 1426 May, [facility] [place] [facility] [address] [id number] [place] [address]- 0748 May, [facility] [place] [facility] [address] [id number] [place] [address]- 6367 May, [facility] [place] [facility] [address] [id number] [place] [address]- 6982 Apr, [facility] [place] [facility] [address] [id number] [place] [address]- 3314 Mar, [facility] [place] [facility] [address] [id number] [place] [address]- 1463 Mar, [facility] [place] [facility] [address] [id number] [place] [address]- 6948 Feb, [facility] [place] [facility] [address] [id number] [place] [address]- 6647 Feb, [facility] [place] [facility] [address] [id number] [place] [address]- 2857 Feb, [facility] [place] [facility] [address] [id number] [place] [address]- 8949 Jan, [facility] [place] [facility] [address] [id number] [place] [address]- 6166 Jan, [facility] [place] [facility] [address] [id number] [place] [address]- 2546 Dec, [facility] [place] [facility] [address] [id number] [place] [address]- 4410 Mar, [facility] [address], [place] [address]- 2896 Feb, [facility] [address], [place] [address]- 3549 Feb, [facility] [address], [place] [address]- 0849 Feb, [facility] [id number] [place] [address] 80926- 3210 Jan, [facility] [id number] [place] [address] 74333- 4533 Dec, [facility] [id number] [place] [address] 024519- 6456 Nov, [facility] [id number] [place] [address] 99318- 2781 Sep, [facility] [address], [place] [address]- 2219 August, [facility] [address], [place] [address]- 5553 May, [facility] [address], [place] [address] Mar, IMMUNIZATIONS No Known Immunizations SOCIAL HISTORY Never Assessed REASON FOR VISIT 90 Day supply PLAN OF CARE VITAL SIGNS MEDICATIONS Medication Instructions Dosage Frequency Start Date [...] History hysterectomy, total with unilateral salpingo-oophorectomy ( O) Surgical History hernia repair-hiatal Hospitalization History Surgery(s)/Childbirth(s) Hospitalization History inpatient multiple times for psychiatric, harming, suicide ideat and attempts. [facility] [place], [facility] last around 2006 Hospitalization History left foot swollen, stepped in [facility] ER 05/02/17
--- OUTSIDE RECORDS SUMMARY | 2017-12-24 02:46 | XMS REPORT ---
Author Author CINDY MARCIAL Organization [facility] Address [address] [place] [address] Care Team Providers Care Production Engineer Track Name Role Phone NEERUCHRIS CUELLOA Unavailable PROBLEMS Type Condition ICD9-CM Code DEO54-JO Code Onset Dates Condition Status SNOMED Code Problem Lumbago with sciatica, left side M54.42 Active 524891416 Problem Other chronic pain G89.29 Active 63180081 Problem Lumbago with sciatica, right side M54.41 Active [id number] Problem Fibrocystic changes of left breast N60.12 Active 45298806 Problem Panic disorder with agoraphobia F40.01 Active 21198886 Problem 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 Active [id number] Problem COPD (chronic obstructive pulmonary disease) J44.9 Active 23094766 Problem Bipolar disease, chronic F31.9 Active 02077357 Problem Morbid (severe) obesity due to excess calories E66.01 Active 93410362191951 Problem Body mass index (BMI) of 40.0-44.9 in adult Z68.41 Active 683233099 Problem Right sciatic nerve pain M54.31 Active 97637927 Problem Depressive disorder, not elsewhere classified F32.9 Active 57525839 Problem Acquired hypothyroidism E03.9 Active 312107414 Problem Pre-diabetes R73.03 Active 518506765 Problem Degenerative joint disease M19.90 Active 857428426 Problem Chronic pain G89.29 Active 56354231 Problem Methamphetamine use disorder, severe, 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 Active 80345125 Problem Opioid use disorder, moderate, dependence F11.20 Active 65286090 Problem Cigarette nicotine dependence without complication F17.210 Active 51077667 Problem Psychosis, unspecified psychosis type F29 Active 40453811 Problem Xanax use disorder, moderate F13.20 Active 648522144 Problem Personality disorder F60.9 Active 42309581 ALLERGIES Substance Reaction Event Type Date Status Tramadol HCl nausea and vomiting Drug Allergy Jul, Active Penicillin V Potassium anaphylaxis Drug Allergy Jul, Active Naproxen swelling Drug Allergy Jul, Active Keflex anaphylaxis Drug Allergy Jul, Active Ibuprofen nausea and vomitting Drug Allergy Jul, Active Aspirin hives Drug Allergy Jul, Active ENCOUNTERS Encounter Location Date Diagnosis [facility] [id number] [place] [address] 00475- 0301 Dec, [facility] [id number] [place] [address] 22504- 8038 Oct, Breast pain N64.4 ; Fibrocystic changes of left breast N60.12 and Bilateral otitis media with effusion H65.93 [facility] [id number] [place] [address] 86846 -6949 Sep, 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 [facility] [id number] [place] [address] 60527- 6326 Sep, [facility] [id number] [place] [address] 65146- 0600 Sep, Methamphetamine use disorder, severe, 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 ; Psychosis, unspecified psychosis type F29 ; Personality disorder F60.9 ; Opioid use disorder, moderate, dependence F11.20 ; Xanax use disorder, moderate F13.20 and BMI 40.0-44.9, adult Z68.41 [facility] [id number] [place] [address] 98248- 9242 Sep, Depressive disorder, not elsewhere classified F32.9 and Psychosis, unspecified psychosis type F29 [facility] [id number] [place] [address] 31029- 3538 August, [facility] [id number] [place] [address] 99918- 7008 August, Depressive disorder, not elsewhere classified F32.9 and Psychosis, unspecified psychosis type F29 [facility] [id number] [place] [address] 77762- 0426 August, [facility] [id number] [place] [address] 27632- 0894 August, Lumbago with sciatica, right side M54.41 and Other chronic pain G89.29 [facility] [id number] [place] [address] 46105 -6748 Jul, Right sciatic nerve pain M54.31 [facility] [id number] [place] [address] 54958- 9597 Jul, Acquired hypothyroidism E03.9 [facility] [id number] [place] [address] 83314- 4824 Jul, Depressive disorder, not elsewhere classified F32.9 and Psychosis, unspecified psychosis type F29 [facility] [facility] [id number] [place] [address] 51677- 7451 Jul, Acquired hypothyroidism E03.9 ; Lumbago with sciatica, right side M54.41 and Lumbar radiculopathy, acute M54.16 [facility] [id number] [place] [address] 07233- 4715 Jul, Methamphetamine use disorder, severe, 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 ; Psychosis, unspecified psychosis type F29 ; Personality disorder F60.9 ; Opioid use disorder, moderate, dependence F11.20 ; Xanax use disorder, moderate F13.20 and BMI 40.0-44.9, adult Z68.41 [facility] [id number] [place] [address] 94233- 3011 Jun, Methamphetamine use disorder, severe, 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 ; Psychosis, unspecified psychosis type F29 ; Personality disorder F60.9 ; Opioid use disorder, moderate, dependence F11.20 and Xanax use disorder, moderate F13.20 [facility] [address] [place] [address] 89865- 3268 Jun, Depressive disorder, not elsewhere classified F32.9 and Psychosis, unspecified psychosis type F29 [facility] [facility] [id number] [place] [address] 30260- 3621 Jun, Lumbar radiculopathy, acute M54.16 [facility] [id number] [place] [address] 52448- 0677 Jun, Lumbar radiculopathy, acute M54.16 ; Strain of abdominal wall, initial encounter S39.011A and BMI 40.0-44.9, adult Z68.41 [facility] [address] 05983- 9469 Jun, [facility] [facility] [id number] [place] [address] 77895- 7735 May, [place] [address] 98445- 1462 May, Methamphetamine use disorder, severe, 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 ; Psychosis, unspecified psychosis type F29 ; Personality disorder F60.9 ; Opioid use disorder, moderate, dependence F11.20 and Xanax use disorder, moderate F13.20 [facility] [id number] [place] [address] 20619- 8240 May, [facility] [facility] [id number] [place] [address] 23343- 1174 May, [facility] [id number] [place] [address] 21307- 3119 May, Lumbago with sciatica, left side M54.42 ; Lumbago with sciatica, right side M54.41 ; Other chronic pain G89.29 ; Weight gain R63.5 ; Acquired hypothyroidism E03.9 and BMI 40.0-44.9, adult Z68.41 [facility] [address] 59127- 4872 Apr, Cigarette nicotine dependence without complication F17.210 [facility] [address] 71766- 2362 18 Apr, 2017 Acute bilateral low back pain without sciatica M54.5 [facility] [address] [place] [address] 30034- 1279 Apr, Methamphetamine use disorder, severe, 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 ; Psychosis, unspecified psychosis type F29 ; Personality disorder F60.9 ; Opioid use disorder, moderate, dependence F11.20 and Xanax use disorder, moderate F13.20 [facility] [id number] [place] [address] 77062 -9311 Apr, Wheezing R06.2 and Bronchitis J40 [facility] [id number] [place] [address] 27716- 3259 Apr, Bronchitis J40 ; Cigarette nicotine dependence without complication F17.210 and Bipolar disease, chronic F31.9 [place] [id number] [place] [address] 71717- 7258 Mar, Acquired hypothyroidism E03.[address] 91003- 9522 Mar, Acquired hypothyroidism E03.9 [facility] [id number] [place] [address] 59353- 3070 Mar, Orthostatic hypotension I95.1 and Non-intractable vomiting with nausea, unspecified vomiting type R11.2 [place] [id number] [place] [address] 62212- 1342 Mar, Strain of lumbar region, initial encounter S39.012A [facility] [id number] [place] [address] 86383- 7976 Mar, [facility] [id number] [place] [address] 53597 -5343 Mar, Bronchitis J40 [facility] [id number] [place] [address] 27704- 6865 05 Mar, 2017 Degenerative joint disease M19.90 ; Elevated LFTs R79.89 ; Adenopathy R59.1 ; Drug use F19.90 ; Pre-diabetes R73.03 and COPD (chronic obstructive pulmonary disease) J44.9 [facility] [address] [place] [address] 85837 -6183 30 Feb, 2017 Left hand pain M79.642 and Contusion of left hand, initial encounter S60.222A [facility] [id number] [place] [address] 00501- 4025 07 Feb, 2017 Body aches R52 and Flu-like symptoms R68.89 [place] [id number] [place] [address] 42103- 7087 Jan, [place] [id number] [place] [address] 64099- 5833 Jan, Bipolar disease, chronic F31.9 ; Acquired hypothyroidism E03.9 and Encounter for immunization Z23 [facility] [id number] [place] [address] 83179 -0479 05 Dec, 2016 Crushing injury of left wrist and hand, initial encounter S67.42XA [facility] [id number] [place] [address] 50833- 0838 Sep, [address] 48662- 4145 Sep, Bipolar disease, chronic F31.9 ; Panic disorder with agoraphobia F40.01 and Proteinuria, unspecified type R80.9 [place] [id number] [place] [address] 61077- 2864 August, [place] [id number] [place] [address] 61570- 1933 August, Degenerative joint disease M19.90 ; Left-sided chest wall pain R07.89 ; Bipolar disease, chronic F31.9 ; Type 2 diabetes mellitus without complication, without long-term current use of insulin E11.9 ; Acquired hypothyroidism E03.9 and Acute cystitis without hematuria N30.00 [place] [id number] [place] [address] 07263- 0677 07 Mar, 2016 [place] [id number] [place] [address] 40116- 7297 30 Feb, 2016 [facility] [id number] [place] [address] 74236 -7411 Feb, Right hand pain M79.641 [facility] [id number] [place] [address] 02362 -1328 Feb, Bronchitis J40 ; Acute non-recurrent pansinusitis J01.40 and Seasonal allergic rhinitis due to other allergic trigger J30.89 [facility] [id number] [place] [address] 15482- 5381 Dec, [facility] [id number] [place] [address] 55582 -3948 Mar, Left-sided chest wall pain R07.89 and Chronic pain G89.29 [facility] [id number] [place] [address] 54976- 5648 Jul, [facility] [id number] [place] [address] 45779- 5161 Jul, [facility] [id number] [place] [address] 28663- 7474 May, [facility] [id number] [place] [address] 83713- 7833 May, [facility] [id number] [place] [address] 42376- 9630 Apr, [facility] [id number] [place] [address] 20283- 1039 Apr, [facility] [id number] [place] [address] 32797- 1254 Mar, [facility] [id number] [place] [address] 44713- 7353 Mar, [facility] [id number] [place] [address] 954369- 9112 Feb, [facility] [place] [facility] [address] [id number] [place] [address]- 4234 Feb, [facility] [place] [facility] [address] [id number] [place] [address]- 9522 28 Jan, 2014 [facility] [place] [facility] [address] [id number] [place] [address]- 4755 28 Jan, 2014 [facility] [place] [facility] [address] [id number] [place] [address]- 8972 28 Jan, 2014 [facility] [place] [facility] [address] [id number] [place] [address]- 5030 28 Jan, 2014 [facility] [place] [facility] [address] [id number] [place] [address]- 0431 15 Jan, 2014 [facility] [place] [facility] [address] [id number] [place] [address]- 3698 15 Jan, 2014 [facility] [place] [facility] [address] [id number] [place] [address]- 5037 19 Dec, 2013 [facility] [place] [facility] [address] [id number] [place] [address]- 1406 19 Dec, 2013 [facility] [place] [facility] [address] [id number] [place] [address]- 3735 19 Dec, 2013 [facility] [place] [facility] [address] [id number] [place] [address]- 7980 19 Sep, 2013 [facility] [place] [facility] [address] [id number] [place] [address]- 8158 18 Sep, 2013 [facility] [place] [facility] [address] [id number] [place] [address]- 4333 18 Sep, 2013 [facility] [place] [facility] [address] [id number] [place] [address]- 8915 16 Sep, 2013 [facility] [place] [facility] [address] [id number] [place] [address]- 3972 16 Sep, 2013 [facility] [place] [facility] [address] [id number] [place] [address]- 7641 Sep, [facility] [place] [facility] [address] [id number] [place] [address]- 7953 Sep, [facility] [place] [facility] [address] [id number] [place] [address]- 8347 Jul, [facility] [place] [facility] [address] [id number] [place] [address]- 7688 Jul, [facility] [place] [facility] [address] [id number] [place] [address]- 5644 Jul, [facility] [place] [facility] [address] [id number] [place] [address]- 3857 Jul, [facility] [place] [facility] [address] [id number] [place] [address]- 0531 Jul, [facility] [place] [facility] [address] [id number] [place] [address]- 9230 Jul, [facility] [place] [facility] [address] [id number] [place] [address]- 2827 Jul, [facility] [place] [facility] [address] [id number] [place] [address]- 5979 Jul, [facility] [place] [facility] [address] [id number] [place] [address]- 8931 Jun, [facility] [place] [facility] [address] [id number] [place] [address]- 4545 Jun, [facility] [place] [facility] [address] [id number] [place] [address]- 0117 May, [facility] [place] [facility] [address] [id number] [place] [address]- 4080 May, [facility] [place] [facility] [address] [id number] [place] [address]- 1995 May, [facility] [place] [facility] [address] [facility] [id number] [place] [address]- 1822 May, [facility] [place] [facility] [address] [id number] [place] [address]- 0365 Apr, [facility] [place] [facility] [address] [id number] [place] [address]- 7915 Apr, [facility] [place] [facility] [address] [id number] [place] [address]- 6344 Mar, [facility] [place] [facility] [address] [id number] [place] [address]- 9074 Mar, [facility] [place] [facility] [address] [id number] [place] [address]- 5849 Feb, [facility] [place] [facility] [address] [id number] [place] [address]- 2975 Feb, [facility] [place] [facility] [address] [id number] [place] [address]- 2230 Feb, [facility] [place] [facility] [address] [id number] [place] [address]- 4429 Feb, [facility] [place] [facility] [address] [id number] [place] [address]- 0302 Jan, [facility] [place] [facility] [address] [id number] [place] [address]- 8691 Jan, [facility] [place] [facility] [address] [facility] [id number] [place] [address]- 1944 Jan, [facility] [place] [facility] [address] [id number] [place] [address]- 9195 Jan, [facility] [place] [facility] [address] [id number] [place] [address]- 5396 Jan, [facility] [place] [facility] [address] [id number] [place] [address]- 8086 Dec, [facility] [place] [facility] [address] [id number] [place] [address]- 2546 Dec, [facility] [place] [facility] [address] [id number] [place] [address]- 5006 Nov, [facility] [address] [id number] [place] [address]- 8609 Sep, [facility] [place] [facility] [address] [id number] [place] [address]- 9069 August, [facility] [place] [facility] [address] [id number] [place] [address]- 9793 August, [facility] [place] [facility] [address] [id number] [place] [address]- 6431 Jul, [facility] [place] [facility] [address] [id number] [place] [address]- 2690 Jul, [facility] [place] [facility] [address] [id number] [place] [address]- 1040 Jul, [facility] [place] [facility] [address] [id number] [place] [address]- 1503 Jul, [facility] [place] [facility] [address] [id number] [place] [address]- 4018 Jul, [facility] [place] [facility] [address] [id number] [place] [address]- 2032 Jul, [facility] [place] [facility] [address] [id number] [place] [address]- 2681 Jul, [facility] [place] [facility] [address] [id number] [place] [address]- 3729 Jun, [facility] [place] [facility] [address] [id number] [address]- 7768 Jun, [facility] [place] [facility] [address] [id number] [place] [address]- 5332 May, [facility] [place] [facility] [address] [id number] [place] [address]- 8575 Apr, [facility] [place] [facility] [address] [id number] [place] [address]- 4670 Apr, [facility] [place] [facility] [address] [id number] [place] [address]- 0429 27 Mar, 2012 [facility] [place] [facility] [address] [id number] [place] [address]- 3963 27 Mar, 2012 [facility] [place] [facility] [address] [id number] [place] [address]- 0634 Mar, [facility] [place] [facility] [address] [id number] [place] [address]- 7304 24 Feb, 2012 [facility] [place] [facility] [address] [id number] [place] [address]- 2265 24 Feb, 2012 [facility] [place] [facility] [address] [id number] [place] [address]- 9091 24 Feb, 2012 [facility] [place] [facility] [address] [id number] [place] [address]- 1770 24 Feb, 2012 [facility] [place] [facility] [address] [id number] [place] [address]- 1144 Feb, [facility] [place] [facility] [address] [id number] [place] [address]- 9671 19 Feb, 2012 [facility] [place] [facility] [address] [id number] [place] [address]- 2211 16 Feb, 2012 [facility] [place] [facility] [address] [facility] [id number] [place] [address]- 5670 16 Feb, 2012 [facility] [place] [facility] [address] [id number] [place] [address]- 7420 14 Feb, 2012 [facility] [place] [facility] [address] [id number] [address]- 4975 08 Feb, 2012 [facility] [place] [facility] [address] [id number] [place] [address]- 0541 08 Feb, 2012 [facility] [place] [facility] [address] [id number] [place] [address]- 4177 27 Dec, 2011 [facility] [place] [facility] [address] [id number] [address]- 2278 Dec, [facility] [place] [facility] [address] [id number] [place] [address]- 8393 Nov, [facility] [place] [facility] [address] [id number] [place] [address]- 7690 Nov, [facility] [place] [facility] [address] [id number] [place] [address]- 5388 Oct, [facility] [place] [facility] [address] [id number] [place] [address]- 5613 Oct, [facility] [place] [facility] [address] [id number] [place] [address]- 6868 Sep, [facility] [place] [facility] [address] [id number] [place] [address]- 1809 May, [facility] [place] [facility] [address] [id number] [place] [address]- 8841 May, [facility] [place] [facility] [address] [id number] [place] [address]- 4525 May, [facility] [place] [facility] [address] [id number] [place] [address] Apr, [facility] [place] [facility] [address] [id number] [place] [address] Mar, [facility] [place] [facility] [address] [id number] [place] [address] Mar, [facility] [place] [facility] [address] [id number] [address] Feb, [facility] [place] [facility] [address] [id number] [place] [address] Feb, [facility] [place] [facility] [address] [id number] [place] [address] Feb, [facility] [place] [facility] [address] [id number] [place] [address] Jan, [facility] [place] [facility] [address] [id number] [address] 14 Jan, 2011 [facility] [id number] [address] Dec, [facility] [id number] [address] Mar, [facility] [id number] [address] Feb, [facility] [id number] [place] [address] Feb, [facility] [id number] [place] [address] Feb, [facility] [id number] [place] [address] Jan, [facility] [id number], [place] [address] Dec, [facility] [id number] [address] Nov, [facility] [id number], [place] [address] Sep, [facility] [id number], [place] [address] August, [facility] [id number] [address] May, [facility] [id number] [id number] Mar, IMMUNIZATIONS No Known Immunizations SOCIAL HISTORY Never Assessed REASON FOR VISIT Psychiatric f/u PLAN OF CARE Activity Details Follow Up 2 Months, prn Reason: VITAL SIGNS Height 63 in 2017-07-13 Weight 253.1 lbs 2017-07-13 Heart Rate 76 bpm 2017-07-13 Respiratory Rate 20 2017-07-13 BMI 44.83 kg/m2 2017-07-13 Blood pressure systolic 122 mmHg 2017-07-13 Blood pressure diastolic 86 mmHg 2017-07-13 MEDICATIONS Medication Instructions Dosage Frequency Start Date End Date Duration Status Mobic 15 MG Orally Once a day 1 tablet 24h August, Sep, Active Gabapentin 300 MG Orally twice a day 1 capsule 12h Jun, 14 days Active Cyclobenzaprine HCl 10 mg Orally 2 times a day 1 tablet as needed 12h 18 Apr, 2017 Active HydrOXYzine HCl 50 MG Orally three times a day as needed for anxiety 1-2 tab May, 30 days Active Synthroid 50 mcg Orally Once a day 1 tablet on an empty stomach in the morning 24h August, 90 days Active ProAir HFA 108 (90 Base) MCG/ACT Inhalation every 6 hrs 2 puffs as needed 6h Mar, Active Womens One Daily - Active Seroquel 300 MG Orally Once a day 1 tablet 24h Apr, 30 days Active RESULTS No Results [...] suicide ideat and attempts. [place], [place] last around 2006 Hospitalization History left foot swollen, stepped in [facility] ER 05/02/17
--- OUTSIDE RECORDS SUMMARY | 2017-12-24 02:47 | XMS REPORT ---
Author Author YAIMA PEREA Organization [facility] Address [address] [place] [address] Care Team Providers Care Delinquent Account Clerk Name Role Phone YAIMA PEREA Unavailable PROBLEMS Type Condition ICD9-CM Code JSR20-VS Code Onset Dates Condition Status SNOMED Code Problem Lumbago with sciatica, left side M54.42 Active 078369895 Problem Other chronic pain G89.29 Active 92494158 Problem Lumbago with sciatica, right side M54.41 Active [id number] Problem Fibrocystic changes of left breast N60.12 Active 55449162 Problem Panic disorder with agoraphobia F40.01 Active 14221212 Problem 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 Active [id number] Problem COPD (chronic obstructive pulmonary disease) J44.9 Active 19445582 Problem Bipolar disease, chronic F31.9 Active 39974023 Problem Morbid (severe) obesity due to excess calories E66.01 Active 28629870322149 Problem Body mass index (BMI) of 40.0-44.9 in adult Z68.41 Active 988788175 Problem Right sciatic nerve pain M54.31 Active 44830988 Problem Depressive disorder, not elsewhere classified F32.9 Active 24494052 Problem Acquired hypothyroidism E03.9 Active 809773250 Problem Pre-diabetes R73.03 Active 050060481 Problem Degenerative joint disease M19.90 Active 835596106 Problem Chronic pain G89.29 Active 80372588 Problem Methamphetamine use disorder, severe, 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 Active 34650667 Problem Opioid use disorder, moderate, dependence F11.20 Active 38182651 Problem Cigarette nicotine dependence without complication F17.210 Active 62771859 Problem Psychosis, unspecified psychosis type F29 Active 61715542 Problem Xanax use disorder, moderate F13.20 Active 375849369 Problem Personality disorder F60.9 Active 01554746 ALLERGIES No Information ENCOUNTERS Encounter Location Date Diagnosis [facility] [id number] [place] [address] 90443- 9240 Dec, [place] [address] 85593- 9992 Oct, Breast pain N64.4 ; Fibrocystic changes of left breast N60.12 and Bilateral otitis media with effusion H65.93 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 ; Psychosis, unspecified psychosis type F29 ; Personality disorder F60.9 ; Opioid use disorder, moderate, dependence F11.20 ; Xanax use disorder, moderate F13.20 and BMI 40.0-44.9, adult Z68.41 [place] [id number] [place] [address] 31206- 9435 Sep, Depressive disorder, not elsewhere classified F32.9 and Psychosis, unspecified psychosis type F29 [place] [address] [place] [id number] [place] [address] 84295- 7279 August, [place] [address] [id number] [place] [address] 14859- 6498 August, Depressive disorder, not elsewhere classified F32.9 and Psychosis, unspecified psychosis type F29 [place] [address] [id number] [place] [address] 22501- 2407 August, [place] [address] [id number] [place] [address] 20702- 0878 August, Lumbago with sciatica, right side M54.41 and Other chronic pain G89.29 [facility] [id number] [place] [address] 19312 -3087 Jul, Right sciatic nerve pain M54.31 [place] [id number] [place] [address] 76047- 3398 Jul, Acquired hypothyroidism E03.9 [place] [id number] [place] [address] 54451- 7542 Jul, Depressive disorder, not elsewhere classified F32.9 and Psychosis, unspecified psychosis type F29 [place] [id number] [place] [address] 83607- 8563 Jul, Acquired hypothyroidism E03.9 ; Lumbago with sciatica, right side M54.41 and Lumbar radiculopathy, acute M54.16 [place] [id number] [place] [address] 67273- 7901 Jul, Methamphetamine use disorder, severe, 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 ; Psychosis, unspecified psychosis type F29 ; Personality disorder F60.9 ; Opioid use disorder, moderate, dependence F11.20 ; Xanax use disorder, moderate F13.20 and BMI 40.0-44.9, adult Z68.41 [place] [id number] [place] [address] 76142- 7539 Jun, Methamphetamine use disorder, severe, 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 ; Psychosis, unspecified psychosis type F29 ; Personality disorder F60.9 ; Opioid use disorder, moderate, dependence F11.20 and Xanax use disorder, moderate F13.20 [place] [id number] [place] [address] 82441- 0537 Jun, Depressive disorder, not elsewhere classified F32.9 and Psychosis, unspecified psychosis type F29 [place] [id number] [place] [address] 62321- 4887 Jun, Lumbar radiculopathy, acute M54.16 [place] [id number] [place] [address] 96030- 0153 Jun, Lumbar radiculopathy, acute M54.16 ; Strain of abdominal wall, initial encounter S39.011A and BMI 40.0-44.9, adult Z68.41 [place] [address] [id number] [place] [address] 96700- 4945 Jun, [place] [address] [id number] [place] [address] 17062- 9571 May, [place] [address] 437692- 0882 May, Methamphetamine use disorder, severe, 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 ; Psychosis, unspecified psychosis type F29 ; Personality disorder F60.9 ; Opioid use disorder, moderate, dependence F11.20 and Xanax use disorder, moderate F13.20 [place] [address] [id number] [place] [address] 09112- 2495 May, [place] [address] [id number] [place] [address] 46063- 6437 May, [place] [address] [id number] [place] [address] 77078- 6142 May, Lumbago with sciatica, left side M54.42 ; Lumbago with sciatica, right side M54.41 ; Other chronic pain G89.29 ; Weight gain R63.5 ; Acquired hypothyroidism E03.9 and BMI 40.0-44.9, adult Z68.41 [place] [id number] [place] [address] 50048- 6528 Apr, Cigarette nicotine dependence without complication F17.210 [place] [address] [place] [address] [id number] [place] [address] 89410- 7040 Apr, Acute bilateral low back pain without sciatica M54.5 [place] [address] [place] [id number] [place] [address] 45970- 7478 Apr, Methamphetamine use disorder, severe, 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 ; Psychosis, unspecified psychosis type F29 ; Personality disorder F60.9 ; Opioid use disorder, moderate, dependence F11.20 and Xanax use disorder, moderate F13.20 [facility] [address] 33738 -6875 12 Apr, 2017 Wheezing R06.2 and Bronchitis J40 [place] [address] 21234- 8017 02 Apr, 2017 Bronchitis J40 ; Cigarette nicotine dependence without complication F17.210 and Bipolar disease, chronic F31.9 [place] [address] 20199- 1296 Mar, Acquired hypothyroidism E03.9 [place] [address] 44057- 3533 Mar, Acquired hypothyroidism E03.9 [place] [address] 24959- 3030 Mar, Orthostatic hypotension I95.1 and Non-intractable vomiting with nausea, unspecified vomiting type R11.2 [place] [address] 59240- 8661 Mar, Strain of lumbar region, initial encounter S39.012A [place] [address] 17516- 1293 Mar, [facility] [place] [address] 00393 -8139 Mar, Bronchitis J40 [place] [address] 71173- 1592 05 Mar, 2017 Degenerative joint disease M19.90 ; Elevated LFTs R79.89 ; Adenopathy R59.1 ; Drug use F19.90 ; Pre-diabetes R73.03 and COPD (chronic obstructive pulmonary disease) J44.9 [facility] [place] [address] 13695 -4694 Feb, Left hand pain M79.642 and Contusion of left hand, initial encounter S60.222A [place] [address] 82373- 5204 07 Feb, 2017 Body aches R52 and Flu-like symptoms R68.89 [place] [address] [place] [id number] [place] [address] 75558- 1724 Jan, [place] [address] [id number] [place] [address] 30109- 7751 Jan, Bipolar disease, chronic F31.9 ; Acquired hypothyroidism E03.9 and Encounter for immunization Z23 [facility] [address] [place] [id number] [place] [address] 47387 -2007 05 Dec, 2016 Crushing injury of left wrist and hand, initial encounter S67.42XA [place] [address] 24035- 6129 Sep, [place] [address] 87627- 5695 Sep, Bipolar disease, chronic F31.9 ; Panic disorder with agoraphobia F40.01 and Proteinuria, unspecified type R80.9 [place] [address] [place] [address] [id number] [place] [address] 93375- 0613 August, [place] [address] [address] [id number] [place] [address] 85647- 8134 August, Degenerative joint disease M19.90 ; Left-sided chest wall pain R07.89 ; Bipolar disease, chronic F31.9 ; Type 2 diabetes mellitus without complication, without long-term current use of insulin E11.9 ; Acquired hypothyroidism E03.9 and Acute cystitis without hematuria N30.00 [place] [address] [place] [address] [id number] [place] [address] 98974- 1555 Mar, [place] [address] [place] [address] [id number] [place] [address] 00076- 2802 Feb, [facility] [address] [place] [id number] [place] [address] 06486 -7658 Feb, Right hand pain M79.641 [facility] [address] [address]61 Feb, Bronchitis J40 ; Acute non-recurrent pansinusitis J01.40 and Seasonal allergic rhinitis due to other allergic trigger J30.89 [facility] [id number] [address]- 9475 29 Dec, 2015 [facility] [id number] [place] [address] 25884 -0443 Mar, Left-sided chest wall pain R07.89 and Chronic pain G89.29 [facility] [id number] [place] [address] 71662- 3806 Jul, [facility] [id number] [place] [address] 10243- 1918 Jul, [facility] [id number] [place] [address] 47144- 8371 May, [facility] [id number] [place] [address] 50383- 7203 May, [facility] [id number] [place] [address] 86253- 5555 Apr, [facility] [id number] [place] [address] 04797- 7792 Apr, [facility] [address] [address]- 2804 Mar, [facility] [id number] [place] [address] 20420- 9326 Mar, [facility] [id number] [address]- 4657 Feb, [facility] [id number] [place] [address] 05140- 4577 Feb, [facility] [address], [place] [address]- 8373 Jan, [facility] [id number] [place] [address]- 7783 28 Jan, 2014 [facility] [place] [facility] [address] [id number] [place] [address]- 4478 28 Jan, 2014 [facility] [place] [facility] [address] [id number] [place] [address]- 1062 28 Jan, 2014 [facility] [place] [facility] [address] [id number] [place] [address]- 1262 15 Jan, 2014 [facility] [place] [facility] [address] [id number] [place] [address]- 2959 15 Jan, 2014 [facility] [place] [facility] [address] [id number] [place] [address]- 9222 19 Dec, 2013 [facility] [place] [facility] [address] [id number] [place] [address]- 6880 19 Dec, 2013 [facility] [place] [facility] [address] [id number] [place] [address]- 0114 19 Dec, 2013 [facility] [place] [facility] [address] [id number] [place] [address]- 4310 19 Dec, 2013 [facility] [place] [facility] [address] [id number] [place] [address]- 6588 18 Dec, 2013 [facility] [place] [facility] [address] [facility] [id number] [place] [address]- 4103 18 Dec, 2013 [facility] [place] [facility] [address] [id number] [place] [address]- 4175 16 Dec, 2013 [facility] [place] [facility] [address] [id number] [place] [address]- 9668 16 Dec, 2013 [facility] [place] [facility] [address] [id number] [place] [address]- 4713 17 Sep, 2013 [facility] [place] [facility] [address] [id number] [place] [address]- 7972 17 Sep, 2013 [facility] [place] [facility] [address] [id number] [place] [address]- 7596 15 Jul, 2013 [facility] [place] [facility] [address] [id number] [place] [address]- 5878 15 Jul, 2013 [facility] [place] [facility] [address] [id number] [place] [address]- 8263 Jul, [facility] [place] [facility] [address] [id number] [place] [address]- 8409 Jul, [facility] [place] [facility] [address] [id number] [place] [address]- 9081 Jul, [facility] [place] [facility] [address] [id number] [place] [address]- 7048 Jul, [facility] [place] [facility] [address] [id number] [place] [address]- 5798 Jul, [facility] [place] [facility] [address] [id number] [place] [address]- 3783 Jul, [facility] [place] [facility] [address] [id number] [place] [address]- 5655 Jun, [facility] [place] [facility] [address] [id number] [place] [address]- 2457 Jun, [facility] [place] [facility] [address] [id number] [place] [address]- 0243 May, [facility] [place] [facility] [address] [id number] [place] [address]- 7891 May, [facility] [place] [facility] [address] [id number] [place] [address]- 9741 May, [facility] [place] [facility] [address] [id number] [place] [address]- 2461 May, [facility] [place] [facility] [address] [id number] [place] [address]- 7094 Apr, [facility] [place] [facility] [address] [id number] [place] [address]- 6930 Apr, [facility] [place] [facility] [address] [id number], [place] [address]- 9259 Mar, [facility] [place] [facility] [address] [id number] [place] [address]- 5836 Mar, [facility] [place] [facility] [address] [facility] [id number], [place] [address]- 9734 Feb, [facility] [place] [facility] [address] [facility] [id number] [place] [address]- 8844 Feb, [facility] [place] [facility] [address] [id number], [place] [address]- 7097 Feb, [facility] [place] [facility] [address] [facility] [id number] [place] [address], [place] [address]- 3102 Feb, [facility] [place] [facility] [address] [facility] [id number], [place] [address]- 8807 Jan, [facility] [place] [facility] [address], [place] [address]- 5539 Jan, [facility] [place] [facility] [address] [facility] [id number], [place] [address]- 6861 Jan, [facility] [place] [facility] [id number] [address]- 6130 Jan, [facility] [place] [facility] [id number], [place] [address]- 1914 Jan, [facility] [place] [facility] [address] [facility] [id number], [place] [address]- 2961 Dec, [facility] [place] [facility] [address] [facility] [id number], [place] [address]- 8425 Dec, [facility] [place] [facility] [address] [facility] [id number], [place] [address]- 8892 Nov, [facility] [place] [facility] [address] [facility] [id number], [place] [address]- 0776 Sep, [facility] [place] [facility] [address] [facility] [id number], [place] [address]- 2603 August, [facility] [place] [facility] [address] [id number] [place] [address]- 2085 August, [facility] [address] [id number] [place] [address]- 8445 Jul, [facility] [place] [facility] [address] [id number] [place] [address]- 5906 Jul, [facility] [address] [id number] [place] [address]- 3579 Jul, [facility] [place] [facility] [address] [id number] [place] [address]- 3335 Jul, [facility] [place] [facility] [address] [id number] [place] [address]- 5516 Jul, [facility] [place] [facility] [address] [id number] [place] [address]- 8596 Jul, [facility] [place] [facility] [address] [id number] [place] [address]- 5342 Jul, [facility] [address] [id number] [place] [address]- 6693 Jun, [facility] [address] [id number] [place] [address]- 1376 Jun, [facility] [address] [id number] [place] [address]- 5794 May, [facility] [address] [id number] [place] [address]- 7360 Apr, [facility] [place] [facility] [address] [id number] [place] [address]- 2515 Apr, [facility] [place] [facility] [address] [id number] [place] [address]- 5922 Mar, [facility] [place] [facility] [address] [id number] [place] [address]- 0358 Mar, [facility] [place] [facility] [address] [id number] [place] [address]- 6143 Mar, [facility] [place] [facility] [address] [id number] [place] [address]- 8164 Feb, [facility] [place] [facility] [address] [id number] [place] [address]- 0153 Feb, [facility] [place] [facility] [address] [id number] [place] [address]- 9491 Feb, [facility] [place] [facility] [address] [id number] [place] [address]- 6435 Feb, [facility] [place] [facility] [address] [id number] [place] [address]- 3447 Feb, [facility] [place] [facility] [address] [id number] [place] [address]- 6932 Feb, [facility] [place] [facility] [address] [id number] [place] [address]- 5194 Feb, [facility] [place] [facility] [address] [id number], [place] [address]- 6291 16 Feb, 2012 [facility] [place] [facility] [address] [id number] [place] [address]- 3831 14 Feb, 2012 [facility] [place] [facility] [address] [id number] [place] [address]- 4324 Feb, [facility] [place] [facility] [address] [id number], [place] [address]- 3486 Feb, [facility] [place] [facility] [address] [id number], [place] [address]- 5262 27 Dec, 2011 [facility] [place] [facility] [address] [id number] [place] [address]- 4672 07 Dec, 2011 [facility] [place] [facility] [address] [id number], [place] [address]- 1684 30 Nov, 2011 [facility] [place] [facility] [address] [id number], [place] [address]- 8563 Nov, [facility] [place] [facility] [address] [id number] [place] [address]- 4949 Oct, [facility] [address] [id number] [place] [address]- 1220 Oct, [facility] [place] [facility] [address] [id number] [place] [address]- 6356 Sep, [facility] [address] [id number] [place] [address]- 6835 May, [facility] [place] [facility] [address] [id number] [place] [address]- 5912 May, [facility] [address] [id number] [place] [address]- 4430 May, [facility] [place] [facility] [address] [id number] [place] [address]- 6768 Apr, [facility] [address] [id number] [place] [address]- 5944 Mar, [facility] [address] [id number] [place] [address]- 6025 Mar, [facility] [place] [facility] [address] [facility] [id number] [place] [address]- 6768 Feb, [facility] [address] [facility] [id number] [place] [address]- 3418 Feb, [facility] [place] [facility] [address] [id number] [place] [address]- 1378 Feb, [facility] [place] [facility] [address] [id number] [place] [address]- 1619 Jan, [facility] [place] [facility] [address] [id number] [place] [address]- 9976 Jan, [facility] [place] [facility] [address] [id number] [place] [address]- 2546 Dec, [facility] [place] [facility] [address] [id number] [place] [address]- 1446 Mar, [facility] [id number], [place] [address]- 0734 Feb, [facility] [address], [place] [address]- 2114 Feb, [facility] [address], [place] [address]- 1760 Feb, [facility] [address], [place] [address]- 8113 Jan, [facility] [id number] [place] [address] Dec, [facility] [id number] [address] Nov, [facility] [id number] [place] [address] Sep, [facility] [id number] [place] [address] August, [facility] [id number] [place] [address] May, [facility] [id number] [address] Mar, IMMUNIZATIONS No Known Immunizations SOCIAL HISTORY Never Assessed REASON FOR VISIT BH f/u, Depression. PLAN OF CARE Activity Details Follow Up 2 Weeks Reason:depression VITAL SIGNS MEDICATIONS Unknown Medications RESULTS No Results PROCEDURES Procedure Date Ordered Result Body Site Psychotherapy, patient &/family, 30 minutes, established patient July 13, 2017 INSTRUCTIONS MEDICATIONS ADMINISTERED No Known Medications [...] Hospitalization History left foot swollen, stepped in [facility] 05/02/17
--- OUTSIDE RECORDS SUMMARY | 2017-12-24 02:47 | XMS REPORT ---
Author Author YOGESH DALTON Organization [facility] Address [address] [place] [address] Care Team Providers Care Currency Exchange Specialist Name Role Phone YOGESH DALTON Unavailable PROBLEMS Type Condition ICD9-CM Code CAP27-VL Code Onset Dates Condition Status SNOMED Code Problem Lumbago with sciatica, left side M54.42 Active 111629041 Problem Other chronic pain G89.29 Active 47064373 Problem Lumbago with sciatica, right side M54.41 Active [id number] Problem Fibrocystic changes of left breast N60.12 Active 88179305 Problem Panic disorder with agoraphobia F40.01 Active 38283895 Problem 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 Active [id number] Problem COPD (chronic obstructive pulmonary disease) J44.9 Active 09350597 Problem Bipolar disease, chronic F31.9 Active 21221966 Problem Morbid (severe) obesity due to excess calories E66.01 Active [id number] Problem Body mass index (BMI) of 40.0-44.9 in adult Z68.41 Active 717380703 Problem Right sciatic nerve pain M54.31 Active 40266798 Problem Depressive disorder, not elsewhere classified F32.9 Active 10440267 Problem Acquired hypothyroidism E03.9 Active 946341317 Problem Pre-diabetes R73.03 Active 749032322 Problem Degenerative joint disease M19.90 Active 593995482 Problem Chronic pain G89.29 Active 36060814 Problem Methamphetamine use disorder, severe, 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 Active 79110108 Problem Opioid use disorder, moderate, dependence F11.20 Active 23201818 Problem Cigarette nicotine dependence without complication F17.210 Active 18440417 Problem Psychosis, unspecified psychosis type F29 Active 63247795 Problem Xanax use disorder, moderate F13.20 Active 061385077 Problem Personality disorder F60.9 Active 09208358 ALLERGIES No Information ENCOUNTERS Encounter Location Date Diagnosis [facility] [id number] [place] [address] 65391- 7038 Dec, [place] [address] [address] Oct, Breast pain N64.4 ; Fibrocystic changes of left breast N60.12 and Bilateral otitis media with effusion H65.93 [facility] [address] [address] Sep, 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 [place] [id number] [place] [address] 93630- 3437 Sep, [place] [address] [address]- [address] Sep, Methamphetamine use disorder, severe, 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 ; Psychosis, unspecified psychosis type F29 ; Personality disorder F60.9 ; Opioid use disorder, moderate, dependence F11.20 ; Xanax use disorder, moderate F13.20 and BMI 40.0-44.9, adult Z68.41 [place] [id number] [place] [address] 46571- 8095 Sep, Depressive disorder, not elsewhere classified F32.9 and Psychosis, unspecified psychosis type F29 [place] [id number] [place] [address] 40577- 3522 August, [place] [id number] [place] [address] 06010- 3891 August, Depressive disorder, not elsewhere classified F32.9 and Psychosis, unspecified psychosis type F29 [place] [id number] [place] [address] 55736- 3709 August, [place] [address] 49317- [address] August, Lumbago with sciatica, right side M54.41 and Other chronic pain G89.29 [facility] [id number] [place] [address] 67940 -0421 Jul, Right sciatic nerve pain M54.31 [place] [id number] [place] [address] 87965- 5085 Jul, Acquired hypothyroidism E03.9 [place] [id number] [place] [address] 36500- 6583 Jul, Depressive disorder, not elsewhere classified F32.9 and Psychosis, unspecified psychosis type F29 [place] [id number] [place] [address] 48304- 1051 Jul, Acquired hypothyroidism E03.9 ; Lumbago with sciatica, right side M54.41 and Lumbar radiculopathy, acute M54.16 [place] [id number] [place] [address] 44190- 8524 Jul, Methamphetamine use disorder, severe, 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 ; Psychosis, unspecified psychosis type F29 ; Personality disorder F60.9 ; Opioid use disorder, moderate, dependence F11.20 ; Xanax use disorder, moderate F13.20 and BMI 40.0-44.9, adult Z68.41 [place] [id number] [place] [address] 00654- 6534 Jun, Methamphetamine use disorder, severe, 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 ; Psychosis, unspecified psychosis type F29 ; Personality disorder F60.9 ; Opioid use disorder, moderate, dependence F11.20 and Xanax use disorder, moderate F13.20 [place] [address] [place] [address] 22448- 7674 Jun, Depressive disorder, not elsewhere classified F32.9 and Psychosis, unspecified psychosis type F29 [place] [id number] [place] [address] 33444- 9756 Jun, Lumbar radiculopathy, acute M54.16 [place] [id number] [place] [address] 35777- 0298 Jun, Lumbar radiculopathy, acute M54.16 ; Strain of abdominal wall, initial encounter S39.011A and BMI 40.0-44.9, adult Z68.41 [place] [id number] [place] [address] 54269- 4239 Jun, [place] [id number] [place] [address] 39378- 2072 May, [place] [address] [place] [address]8068- 1871 May, Methamphetamine use disorder, severe, 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 ; Psychosis, unspecified psychosis type F29 ; Personality disorder F60.9 ; Opioid use disorder, moderate, dependence F11.20 and Xanax use disorder, moderate F13.20 [place] [id number] [place] [address] 94350- 5097 May, [place] [id number] [place] [address] 99775- 6617 May, [place] [id number] [place] [address] 69554- 1404 May, Lumbago with sciatica, left side M54.42 ; Lumbago with sciatica, right side M54.41 ; Other chronic pain G89.29 ; Weight gain R63.5 ; Acquired hypothyroidism E03.9 and BMI 40.0-44.9, adult Z68.41 [place] [id number] [place] [address] 41681- 7696 Apr, Cigarette nicotine dependence without complication F17.210 [place] [id number] [place] [address] 06898- 8314 Apr, Acute bilateral low back pain without sciatica M54.5 [place] [id number] [place] [address] 90354- 3689 Apr, Methamphetamine use disorder, severe, 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 ; Psychosis, unspecified psychosis type F29 ; Personality disorder F60.9 ; Opioid use disorder, moderate, dependence F11.20 and Xanax use disorder, moderate F13.20 [facility] [address] [address] 12 Apr, 2017 Wheezing R06.2 and Bronchitis J40 [place] [address] 12382- 8242 02 Apr, 2017 Bronchitis J40 ; Cigarette nicotine dependence without complication F17.210 and Bipolar disease, chronic F31.9 [place] [address] 06848- 0263 Mar, Acquired hypothyroidism E03.9 [place] [address] 30612- 5651 Mar, Acquired hypothyroidism E03.9 [place] [address] 34748- 7332 Mar, Orthostatic hypotension I95.1 and Non-intractable vomiting with nausea, unspecified vomiting type R11.2 [place] [address] 13390- 8416 14 Mar, 2017 Strain of lumbar region, initial encounter S39.012A [place] [address] 47964- 5657 Mar, [facility] [place] [address] 0[address]64 Mar, Bronchitis J40 [place] [address] 25561- 1106 05 Mar, 2017 Degenerative joint disease M19.90 ; Elevated LFTs R79.89 ; Adenopathy R59.1 ; Drug use F19.90 ; Pre-diabetes R73.03 and COPD (chronic obstructive pulmonary disease) J44.9 [facility] [place] [address] 25182 [address]64 Feb, Left hand pain M79.642 and Contusion of left hand, initial encounter S60.222A [address] [place] [address]- 0116 07 Feb, 2017 Body aches R52 and Flu-like symptoms R68.89 [place] [address] 87223- 7254 Jan, [place] [address] 76018- 6838 18 Jan, 2017 Bipolar disease, chronic F31.9 ; Acquired hypothyroidism E03.9 and Encounter for immunization Z23 [facility] [place] [address] 0[address] 05 Dec, 2016 Crushing injury of left wrist and hand, initial encounter S67.42XA [place] [address] 74902- 1144 Sep, [place] [address] 94377- 9625 Sep, Bipolar disease, chronic F31.9 ; Panic disorder with agoraphobia F40.01 and Proteinuria, unspecified type R80.9 [place] [id number] [place] [address] 10403- 4107 August, [place] [address] 19024- 1870 August, Degenerative joint disease M19.90 ; Left-sided chest wall pain R07.89 ; Bipolar disease, chronic F31.9 ; Type 2 diabetes mellitus without complication, without long-term current use of insulin E11.9 ; Acquired hypothyroidism E03.9 and Acute cystitis without hematuria N30.00 [place] [id number] [place] [address] 61184- 1590 Mar, [place] [address] 37993- 3772 Feb, [facility] [id number] [place] [address] 15574 -0504 Feb, Right hand pain M79.641 [facility] [address], [place] [address] Feb, Bronchitis J40 ; Acute non-recurrent pansinusitis J01.40 and Seasonal allergic rhinitis due to other allergic trigger J30.89 [facility] [address] [address]- 8200 29 Dec, 2015 [facility] [id number] [place] [address] 98162 -2095 Mar, Left-sided chest wall pain R07.89 and Chronic pain G89.29 [facility] [id number] [place] [address] 14789- 4199 Jul, [facility] [id number] [place] [address] 94690- 5330 Jul, [facility] [id number] [place] [address] 87903- 2002 May, [facility] [id number] [place] [address] 84516- 8869 May, [facility] [address] [place] [address] 18377- 9333 Apr, [facility] [id number] [address]- 4791 Apr, [facility] [address] [address]- 9382 Mar, [facility] [address] [address]- 3321 Mar, [facility] [address] [address]- 4933 Feb, [facility] [address] [address]- 2786 Feb, [facility] [address] [address]- 6120 Jan, [facility] [id number] [address]- 5512 28 Jan, 2014 [facility] [place] [facility] [address] [id number] [place] [address]- 7076 28 Jan, 2014 [facility] [place] [facility] [address] [id number] [place] [address]- 9297 28 Jan, 2014 [facility] [place] [facility] [address] [id number] [place] [address]- 9885 15 Jan, 2014 [facility] [place] [facility] [address] [id number] [place] [address]- 3571 15 Jan, 2014 [facility] [place] [facility] [address] [id number] [place] [address]- 2188 19 Dec, 2013 [facility] [place] [facility] [address] [id number] [place] [address]- 5229 19 Dec, 2013 [facility] [place] [facility] [address] [id number] [place] [address]- 5317 19 Dec, 2013 [facility] [place] [facility] [address] [id number] [place] [address]- 2006 19 Dec, 2013 [facility] [place] [facility] [address] [id number] [place] [address]- 6677 18 Dec, 2013 [facility] [place] [facility] [address] [id number] [place] [address]- 9799 18 Dec, 2013 [facility] [place] [facility] [address] [id number] [place] [address]- 4206 16 Dec, 2013 [facility] [place] [facility] [address] [id number] [place] [address]- 1098 16 Dec, 2013 [facility] [place] [facility] [address] [id number] [place] [address]- 9204 17 Sep, 2013 [facility] [place] [facility] [address] [id number] [place] [address]- 5040 17 Sep, 2013 [facility] [place] [facility] [address] [id number] [place] [address]- 0425 15 Jul, 2013 [facility] [place] [facility] [address] [id number] [place] [address]- 7678 15 Jul, 2013 [facility] [place] [facility] [address] [id number] [place] [address]- 4499 Jul, [facility] [place] [facility] [address] [id number] [place] [address]- 1985 Jul, [facility] [place] [facility] [address] [id number] [place] [address]- 8734 Jul, [facility] [place] [facility] [address] [id number] [place] [address]- 0188 Jul, [facility] [place] [facility] [address] [id number] [place] [address]- 5113 Jul, [facility] [place] [facility] [address] [id number] [place] [address]- 7247 Jul, [facility] [place] [facility] [address] [id number] [place] [address]- 0236 Jun, [facility] [place] [facility] [address] [id number] [place] [address]- 9139 Jun, [facility] [place] [facility] [address] [id number] [place] [address]- 2948 May, [facility] [place] [facility] [address] [id number] [place] [address]- 5050 May, [facility] [place] [facility] [address] [id number] [place] [address]- 6352 May, [facility] [place] [facility] [address] [id number] [place] [address]- 2501 May, [facility] [place] [facility] [address] [id number] [place] [address]- 1484 Apr, [facility] [place] [facility] [address] [id number] [place] [address]- 9927 Apr, [facility] [place] [facility] [address] [id number] [place] [address]- 3972 Mar, [facility] [place] [facility] [address] [id number] [place] [address]- 2109 Mar, [facility] [place] [facility] [address] [id number] [place] [address]- 2898 Feb, [facility] [place] [facility] [address] [id number] [place] [address]- 5029 Feb, [facility] [place] [facility] [address] [id number] [place] [address]- 5798 Feb, [facility] [place] [facility] [address] [id number] [place] [address]- 3953 Feb, [facility] [place] [facility] [address] [id number] [place] [address]- 8793 Jan, [facility] [place] [facility] [address] [id number] [place] [address]- 7077 Jan, [facility] [place] [facility] [address] [id number] [place] [address]- 1044 Jan, [facility] [place] [facility] [address] [id number] [place] [address]- 2960 Jan, [facility] [place] [facility] [address] [facility] [id number] [place] [address]- 0577 Jan, [facility] [place] [facility] [address] [id number] [place] [address]- 0441 Dec, [facility] [place] [facility] [address] [id number] [address]- 254 Dec, [facility] [place] [facility] [address] [id number] [place] [address]- 1832 Nov, [facility] [place] [facility] [address] [id number] [place] [address] 2546 Sep, [facility] [place] [facility] [address] [facility] [id number] [place] [address]- 9204 August, [facility] [place] [facility] [address] [id number] [place] [address]- 8545 August, [facility] [address] [id number] [place] [address]- 9577 Jul, [facility] [address] [id number] [place] [address]- 3215 Jul, [facility] [address] [id number] [place] [address]- 3386 Jul, [facility] [address] [id number] [place] [address]- 8735 Jul, [facility] [address] [id number] [place] [address]- 3833 Jul, [facility] [address] [id number] [place] [address]- 7622 Jul, [facility] [address] [id number] [place] [address]- 5964 Jul, [facility] [address] [id number] [place] [address]- 1505 Jun, [facility] [address] [id number] [place] [address]- 0192 Jun, [facility] [address] [id number] [place] [address]- 7313 May, [facility] [address] [id number] [place] [address]- 1476 Apr, [facility] [address] [id number] [place] [address]- 3087 Apr, [facility] [address] [id number] [place] [address]- 1457 Mar, [facility] [address] [id number] [place] [address]- 1712 Mar, [facility] [address] [id number], [place] [address]- 9092 Mar, [facility] [place] [facility] [address] [id number] [place] [address]- 1832 Feb, [facility] [place] [facility] [address] [id number] [place] [address]- 0755 Feb, [facility] [place] [facility] [address] [id number] [place] [address]- 3726 Feb, [facility] [place] [facility] [address] [id number] [place] [address]- 0832 Feb, [facility] [place] [facility] [address] [id number] [place] [address]- 8831 Feb, [facility] [place] [facility] [address] [id number] [place] [address]- 2802 Feb, [facility] [place] [facility] [address] [id number] [place] [address]- 7807 16 Feb, 2012 [facility] [place] [facility] [address] [id number] [place] [address]- 1887 16 Feb, 2012 [facility] [place] [facility] [address] [id number] [place] [address]- 2571 14 Feb, 2012 [facility] [place] [facility] [address] [id number] [place] [address]- 9923 Feb, [facility] [place] [facility] [address] [id number], [place] [address]- 8676 08 Feb, 2012 [facility] [place] [facility] [address] [id number], [place] [address]- 5993 27 Dec, 2011 [facility] [place] [facility] [address] [id number] [place] [address]- 2941 07 Dec, 2011 [facility] [place] [facility] [address] [id number] [place] [address]- 2815 30 Nov, 2011 [facility] [place] [facility] [address] [id number] [place] [address]- 5144 Nov, [facility] [place] [facility] [address] [id number] [place] [address]- 6756 Oct, [facility] [address] [id number] [place] [address]- 3266 Oct, [facility] [place] [facility] [address] [id number] [place] [address]- 6846 Sep, [facility] [place] [facility] [address] [id number] [place] [address]- 3536 May, [facility] [place] [facility] [address] [id number] [place] [address]- 4074 May, [facility] [place] [facility] [address] [id number] [place] [address]- 3046 May, [facility] [place] [facility] [address] [id number] [place] [address]- 3131 Apr, [facility] [place] [facility] [address] [id number] [place] [address]- 6463 Mar, [facility] [place] [facility] [address] [id number] [place] [address]- 4852 Mar, [facility] [place] [facility] [address] [id number] [place] [address]- 1729 Feb, [facility] [place] [facility] [address] [id number] [place] [address]- 9729 Feb, [facility] [place] [facility] [address] [id number] [place] [address]- 4910 Feb, [facility] [place] [facility] [address] [id number] [place] [address]- 0793 Jan, [facility] [place] [facility] [address] [id number] [place] [address]- 1116 Jan, [facility] [place] [facility] [address] [id number] [place] [address]- 2546 Dec, [facility] [place] [facility] [address] [id number] [place] [address]- 8844 Mar, [facility] [address], [place] [address]- 6020 Feb, [facility] [address], [place] [address]- 7043 Feb, [facility] [address], [place] [address]- 9103 Feb, [facility] [address], [place] [address]- 0876 Jan, [facility] [address], [place] [address]- 2068 Dec, [facility] [address] [place] [address] 39624- 0540 Nov, [facility] [id number] [address]- 5205 Sep, [facility] [address], [place] [address]- 1456 August, [facility] [id number], [place] [address] May, [facility] [id number], [place] [address] Mar, IMMUNIZATIONS No Known Immunizations SOCIAL HISTORY Never Assessed REASON FOR VISIT med refills PLAN OF CARE VITAL SIGNS MEDICATIONS Medication Instructions Dosage Frequency Start Date End Date Duration Status Gabapentin 300 MG Orally twice a day 1 capsule 12h Jun, 30 days Active Mobic 15 mg Orally Once a day 1 tablet 24h August, 30 days Active Synthroid 50 mcg Orally Once a day 1 tablet on an empty stomach in the morning 24h August, 30 days Active Cyclobenzaprine HCl 10 mg [...] suicide ideat and attempts. [facility] [place], [place] last around 2006 Hospitalization History left foot swollen, stepped in [facility] 05/02/17
--- OUTSIDE RECORDS SUMMARY | 2017-12-24 02:48 | XMS REPORT ---
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 Active 253682241639127 Problem COPD (chronic obstructive pulmonary disease) J44.9 Active 57887680 Problem Right sciatic nerve pain M54.31 Active 88547006 Problem Bipolar disease, chronic F31.9 Active 01002095 Problem Body mass index (BMI) of 40.0-44.9 in adult Z68.41 Active 952512595 Problem Other chronic pain G89.29 Active 26590815 Problem Depressive disorder, not elsewhere classified F32.9 Active 30237828 Problem Morbid (severe) obesity due to excess calories E66.01 Active 18136388542950 Problem Chronic pain G89.29 Active 46579886 Problem Acquired hypothyroidism E03.9 Active 139140672 Problem Panic disorder with agoraphobia F40.01 Active 32285939 Problem Degenerative joint disease M19.90 Active 661928804 Problem Xanax use disorder, moderate F13.20 Active 309387677 Problem Methamphetamine use disorder, severe, 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 Active 37608697 Problem Pre-diabetes R73.03 Active 953768193 Problem Opioid use disorder, moderate, dependence F11.20 Active 35271807 Problem Cigarette nicotine dependence without complication F17.210 Active 85843407 Problem Psychosis, unspecified psychosis type F29 Active 80547441 ALLERGIES No Information ENCOUNTERS Encounter Location Date Diagnosis [facility] [address] [facility] [id number] [address] Dec, [facility] [id number] [place] [address] 54207- 5446 Oct, [facility] [id number] [place] [address] 42036 -0032 Sep, 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 [place] [id number] [place] [address] 07504- 9109 Sep, [place] [id number] [place] [address] 20661- 2731 Sep, Methamphetamine use disorder, severe, 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 ; Psychosis, unspecified psychosis type F29 ; Personality disorder F60.9 ; Opioid use disorder, moderate, dependence F11.20 ; Xanax use disorder, moderate F13.20 and BMI 40.0-44.9, adult Z68.41 [place] [id number] [place] [address] 98258- 5887 Sep, Depressive disorder, not elsewhere classified F32.9 and Psychosis, unspecified psychosis type F29 [place] [id number] [place] [address] 30866- 7668 August, [place] [id number] [place] [address] 81631- 3971 August, Depressive disorder, not elsewhere classified F32.9 and Psychosis, unspecified psychosis type F29 [place] [id number] [place] [address] 98381- 1862 August, [place] [id number] [place] [address] 22545- 4658 August, Lumbago with sciatica, right side M54.41 and Other chronic pain G89.29 [facility] [id number] [place] [address] 22807 -7692 Jul, Right sciatic nerve pain M54.31 [facility] [id number] [place] [address] 41047- 7986 Jul, Acquired hypothyroidism E03.9 [place] [id number] [place] [address] 60668- 8509 Jul, Depressive disorder, not elsewhere classified F32.9 and Psychosis, unspecified psychosis type F29 [place] [id number] [place] [address] 08497- 1446 Jul, Acquired hypothyroidism E03.9 ; Lumbago with sciatica, right side M54.41 and Lumbar radiculopathy, acute M54.16 [place] [address] [place] [address] 00239- 5192 Jul, Methamphetamine use disorder, severe, 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 ; Psychosis, unspecified psychosis type F29 ; Personality disorder F60.9 ; Opioid use disorder, moderate, dependence F11.20 ; Xanax use disorder, moderate F13.20 and BMI 40.0-44.9, adult Z68.41 [place] [id number] [place] [address] 04634- 1378 Jun, Methamphetamine use disorder, severe, 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 ; Psychosis, unspecified psychosis type F29 ; Personality disorder F60.9 ; Opioid use disorder, moderate, dependence F11.20 and Xanax use disorder, moderate F13.20 [place] [address] [place] [address] 24548- 5460 Jun, Depressive disorder, not elsewhere classified F32.9 and Psychosis, unspecified psychosis type F29 [place] [address] [place] [address] 83369- 2122 Jun, Lumbar radiculopathy, acute M54.16 [place] [id number] [place] [address] 42464- 5340 Jun, Lumbar radiculopathy, acute M54.16 ; Strain of abdominal wall, initial encounter S39.011A and BMI 40.0-44.9, adult Z68.41 [place] [id number] [place] [address] 62692- 0375 Jun, [place] [id number] [place] [address] 60105- 4963 May, [place] [address] [place] 376145- 0652 May, Methamphetamine use disorder, severe, 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 ; Psychosis, unspecified psychosis type F29 ; Personality disorder F60.9 ; Opioid use disorder, moderate, dependence F11.20 and Xanax use disorder, moderate F13.20 [place] [id number] [place] [address] 60514- 3658 May, [place] [address] 29510- 2585 May, [place] [address] 48175- 3722 May, Lumbago with sciatica, left side M54.42 ; Lumbago with sciatica, right side M54.41 ; Other chronic pain G89.29 ; Weight gain R63.5 ; Acquired hypothyroidism E03.9 and BMI 40.0-44.9, adult Z68.41 [place] [id number] [place] [address] 98990- 8717 Apr, Cigarette nicotine dependence without complication F17.210 [place] [id number] [place] [address] 97266- 6276 Apr, Acute bilateral low back pain without sciatica M54.5 [place] [id number] [place] [address] 27532- 8529 Apr, Methamphetamine use disorder, severe, 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 ; Psychosis, unspecified psychosis type F29 ; Personality disorder F60.9 ; Opioid use disorder, moderate, dependence F11.20 and Xanax use disorder, moderate F13.20 [facility] [id number] [place] [address] 84969 -1144 Apr, Wheezing R06.2 and Bronchitis J40 [place] [id number] [place] [address] 69731- 7901 02 Apr, 2017 Bronchitis J40 ; Cigarette nicotine dependence without complication F17.210 and Bipolar disease, chronic F31.9 [place] [address] [id number] [place] [address] 88326- 0369 Mar, Acquired hypothyroidism E03.9 [place] [address] 84273- 8006 Mar, Acquired hypothyroidism E03.9 [place] [address] 69844- 3682 Mar, Orthostatic hypotension I95.1 and Non-intractable vomiting with nausea, unspecified vomiting type R11.[address] 60261- 3569 14 Mar, 2017 Strain of lumbar region, initial encounter S39.012A [place] [address] 33818- 1162 Mar, [facility] [address] [place] [address] 87553 -9650 Mar, Bronchitis J40 [place] [id number] [place] [address] 06634- 6578 05 Mar, 2017 Degenerative joint disease M19.90 ; Elevated LFTs R79.89 ; Adenopathy R59.1 ; Drug use F19.90 ; Pre-diabetes R73.03 and COPD (chronic obstructive pulmonary disease) J44.9 [facility] [id number] [place] [address] 72069 -3682 30 Feb, 2017 Left hand pain M79.642 and Contusion of left hand, initial encounter S60.222A [place] [id number] [place] [address] 20106- 5215 07 Feb, 2017 Body aches R52 and Flu-like symptoms R68.89 [place] [address] [place] [address]- 9318 Jan, [place] [id number] [place] [address] 05457- 1886 Jan, Bipolar disease, chronic F31.9 ; Acquired hypothyroidism E03.9 and Encounter for immunization Z23 [facility] [place] [id number] [place] [address] 15257 -4589 05 Dec, 2016 Crushing injury of left wrist and hand, initial encounter S67.42XA [place] [address] 97555- 7210 Sep, [address] 95410- 1197 Sep, Bipolar disease, chronic F31.9 ; Panic disorder with agoraphobia F40.01 and Proteinuria, unspecified type R80.[address] 52251- 1083 August, [place] [address] 35757- 2235 August, Degenerative joint disease M19.90 ; Left-sided chest wall pain R07.89 ; Bipolar disease, chronic F31.9 ; Type 2 diabetes mellitus without complication, without long-term current use of insulin E11.9 ; Acquired hypothyroidism E03.9 and Acute cystitis without hematuria N30.00 [place] [id number] [place] [address] 79052- 6258 Mar, [place] [id number] [place] [address] 48301- 2748 Feb, [facility] [address] 17770 -7554 Feb, Right hand pain M79.641 [facility] [place] [id number] [place] [address] 88613 -4376 Feb, Bronchitis J40 ; Acute non-recurrent pansinusitis J01.40 and Seasonal allergic rhinitis due to other allergic trigger J30.89 [facility] [address] [address]- 2467 29 Dec, 2015 [facility] [address] -0977 Mar, Left-sided chest wall pain R07.89 and Chronic pain G89.29 [facility] [address] [address]- 8505 Jul, [facility] [address] [facility] [id number] [address]- 6348 Jul, [facility] [id number] [place] [address] 70258- 8144 May, [facility] [id number] [place] [address] 92177- 5332 May, [facility] [id number] [place] [address] 09028- 1226 Apr, [facility] [address] [address]- 7264 Apr, [facility] [address] [place] [address] 98308- 3540 Mar, [facility] [address] [address]- 0505 Mar, [facility] [address] [address]- 1333 Feb, [facility] [address] 5441 Feb, [facility] [id number] [place] [address] 72983466- 6424 Jan, [facility] [address] [address]- 0570 Jan, [facility] [address] [place] [address] 06572- 6802 28 Jan, 2014 [facility] [place] [facility] [address] [id number] [place] [address]- 6091 28 Jan, 2014 [facility] [place] [facility] [address] [id number] [place] [address]- 4852 15 Jan, 2014 [facility] [place] [facility] [address] [id number] [place] [address]- 8014 15 Jan, 2014 [facility] [place] [facility] [address] [id number] [place] [address]- 6288 19 Dec, 2013 [facility] [place] [facility] [address] [id number] [place] [address]- 9695 19 Dec, 2013 [facility] [place] [facility] [address] [id number] [place] [address]- 9549 19 Dec, 2013 [facility] [place] [facility] [address] [id number] [place] [address]- 3400 19 Dec, 2013 [facility] [place] [facility] [address] [id number] [place] [address]- 4365 18 Dec, 2013 [facility] [place] [facility] [address] [id number] [place] [address]- 6862 18 Dec, 2013 [facility] [place] [facility] [address] [id number] [place] [address]- 6244 16 Dec, 2013 [facility] [place] [facility] [address] [id number], [place] [address]- 8045 16 Dec, 2013 [facility] [place] [facility] [address] [id number], [place] [address]- 3211 17 Sep, 2013 [facility] [place] [facility] [address] [id number] [place] [address]- 1061 17 Sep, 2013 [facility] [place] [facility] [address] [id number] [address]- 9238 15 Jul, 2013 [facility] [place] [facility] [address] [id number] [address]- 0224 15 Jul, 2013 [facility] [place] [facility] [address] [id number] [place] [address]- 4470 Jul, [facility] [address] [id number] [place] [address]- 7491 Jul, [facility] [place] [facility] [address] [id number] [place] [address]- 0962 Jul, [facility] [address] [id number] [place] [address]- 1097 Jul, [facility] [place] [facility] [address] [id number] [place] [address]- 7991 Jul, [facility] [address] [id number] [place] [address]- 5331 Jul, [facility] [place] [facility] [address] [id number] [place] [address]- 5552 Jun, [facility] [place] [facility] [address] [id number] [place] [address]- 6470 Jun, [facility] [place] [facility] [address] [id number] [place] [address]- 8782 May, [facility] [place] [facility] [address] [id number] [place] [address]- 7583 May, [facility] [address] [id number] [place] [address]- 6695 May, [facility] [place] [facility] [address] [id number] [place] [address]- 1344 May, [facility] [place] [facility] [address] [id number] [place] [address]- 9805 Apr, [facility] [place] [facility] [address] [id number] [place] [address]- 0778 Apr, [facility] [place] [facility] [address] [id number] [place] [address]- 6674 Mar, [facility] [place] [facility] [address] [id number] [place] [address]- 3923 Mar, [facility] [place] [facility] [address] [id number] [place] [address]- 0227 Feb, [facility] [place] [facility] [address] [id number] [place] [address]- 8626 Feb, [facility] [place] [facility] [address] [id number] [place] [address]- 9250 Feb, [facility] [place] [facility] [address] [id number] [place] [address]- 7333 Feb, [facility] [place] [facility] [address] [id number] [place] [address]- 4349 Jan, [facility] [place] [facility] [address] [id number] [place] [address]- 1841 Jan, [facility] [place] [facility] [address] [id number] [place] [address]- 5963 Jan, [facility] [place] [facility] [address] [id number], [place] [address]- 2616 Jan, [facility] [place] [facility] [address] [id number] [place] [address]- 2123 Jan, [facility] [place] [facility] [address] [id number], [place] [address]- 7191 Dec, [facility] [place] [facility] [address] [id number], [place] [address]- 1473 Dec, [facility] [place] [facility] [address] [id number], [place] [address]- 0430 Nov, [facility] [place] [facility] [address] [id number] [place] [address]- 5512 Sep, [facility] [place] [facility] [address] [id number], [place] [address]- 5456 August, [facility] [place] [facility] [address] [id number] [place] [address]- 2546 August, [facility] [place] [facility] [address] [id number] [place] [address]- 2525 30 Jul, 2012 [facility] [address] [id number] [place] [address]- 7284 Jul, [facility] [address] [id number] [place] [address]- 6154 Jul, [facility] [address] [id number] [place] [address]- 2458 Jul, [facility] [place] [facility] [address] [id number] [place] [address]- 2232 Jul, [facility] [address] [id number] [place] [address]- 8988 Jul, [facility] [address] [id number] [place] [address]- 5585 Jul, [facility] [address] [id number] [place] [address]- 1664 Jun, [facility] [address] [id number] [place] [address]- 9840 Jun, [facility] [address] [id number] [place] [address]- 0212 May, [facility] [address] [id number] [place] [address]- 9518 Apr, [facility] [address] [id number] [place] [address]- 7321 Apr, [facility] [address] [id number] [place] [address]- 3758 Mar, [facility] [place] [facility] [address] [id number] [place] [address]- 7267 Mar, [facility] [place] [facility] [address] [id number] [place] [address]- 7303 Mar, [facility] [address] [id number] [place] [address]- 1883 Feb, [facility] [place] [facility] [address] [id number] [place] [address]- 2446 Feb, [facility] [place] [facility] [address] [id number] [place] [address]- 7574 Feb, [facility] [place] [facility] [address] [id number] [place] [address]- 9293 Feb, [facility] [place] [facility] [address] [id number] [place] [address]- 7472 Feb, [facility] [place] [facility] [address] [id number] [place] [address]- 5199 Feb, [facility] [place] [facility] [address] [id number] [place] [address]- 7909 Feb, [facility] [place] [facility] [address] [id number] [place] [address]- 8912 16 Feb, 2012 [facility] [place] [facility] [address] [id number] [place] [address]- 2291 14 Feb, 2012 [facility] [place] [facility] [address] [id number] [place] [address]- 5138 Feb, [facility] [place] [facility] [address] [id number] [place] [address]- 9406 Feb, [facility] [place] [facility] [address] [id number] [place] [address]- 3647 27 Dec, 2011 [facility] [place] [facility] [address] [id number] [place] [address]- 6050 07 Dec, 2011 [facility] [place] [facility] [address] [id number] [place] [address]- 0214 30 Nov, 2011 [facility] [place] [facility] [address] [id number] [place] [address]- 6692 Nov, [facility] [place] [facility] [address] [id number] [place] [address]- 4229 Oct, [facility] [place] [facility] [address] [id number], [place] [address]- 3136 Oct, [facility] [address] [id number] [place] [address]- 7945 Sep, [facility] [place] [facility] [address] [id number] [place] [address]- 4393 May, [facility] [place] [facility] [address] [id number] [place] [address]- 8206 May, [facility] [place] [facility] [address] [id number] [place] [address]- 2625 May, [facility] [address] [id number] [place] [address]- 2849 Apr, [facility] [place] [facility] [address] [id number] [place] [address]- 1153 Mar, [facility] [address] [id number] [place] [address]- 0446 Mar, [facility] [place] [facility] [address] [id number] [place] [address]- 1204 Feb, [facility] [place] [facility] [address] [facility] [id number] [place] [address]- 6222 Feb, [facility] [place] [facility] [address] [facility] [id number] [place] [address]- 9079 Feb, [facility] [place] [facility] [address] [facility] [id number], [place] [address]- 8527 Jan, [facility] [place] [facility] [address] [id number], [place] [address]- 1644 Jan, [facility] [place] [facility] [address] [id number], [place] [address]- 9331 Dec, [facility] [place] [facility] [address] [id number], [place] [address]- 1644 Mar, [facility] [place] [facility] [address] [id number] [place] [address]- 1146 Feb, [facility] [place] [facility] [address] [place] [id number] [address]- 2546 10 Feb, 2009 [facility] [address], [place] [address]- 6696 Feb, [facility] [address], [place] [address]- 2546 Jan, [facility] [address], [place] [address]- 7316 Dec, [facility] [address], [place] [address]- [address] Nov, [facility] [id number] [place] [id number] Sep, [facility] [id number] [address] August, [facility] [id number] [address] May, [facility] [id number], [place] [address] Mar, IMMUNIZATIONS No Known Immunizations SOCIAL HISTORY Never Assessed REASON FOR VISIT PA initiated PLAN OF CARE VITAL SIGNS MEDICATIONS Unknown [...] History left foot swollen, stepped in [facility] 05/02/17
--- OUTSIDE RECORDS SUMMARY | 2017-12-24 02:48 | XMS REPORT ---
Author Author CINDY MARCIAL Organization [facility] Address [address] [place] [address] Care Team Providers Care Yeast Maker Name Role Phone NEERUCUATE MARCIAL Unavailable PROBLEMS Type Condition ICD9-CM Code [id number] Code Onset Dates Condition Status SNOMED Code Problem Lumbago with sciatica, left side M54.42 Active 480866880 Problem Other chronic pain G89.29 Active 77528849 Problem Lumbago with sciatica, right side M54.41 Active [id number] Problem Fibrocystic changes of left breast N60.12 Active 34448789 Problem Panic disorder with agoraphobia F40.01 Active 64129798 Problem 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 Active [id number] Problem COPD (chronic obstructive pulmonary disease) J44.9 Active 21227823 Problem Bipolar disease, chronic F31.9 Active 56658408 Problem Morbid (severe) obesity due to excess calories E66.01 Active 97274516104096 Problem Body mass index (BMI) of 40.0-44.9 in adult Z68.41 Active 913742398 Problem Right sciatic nerve pain M54.31 Active 34459966 Problem Depressive disorder, not elsewhere classified F32.9 Active 57620089 Problem Acquired hypothyroidism E03.9 Active 196657682 Problem Pre-diabetes R73.03 Active 131052934 Problem Degenerative joint disease M19.90 Active 835015459 Problem Chronic pain G89.29 Active 10265201 Problem Methamphetamine use disorder, severe, 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 Active 84925980 Problem Opioid use disorder, moderate, dependence F11.20 Active 94200739 Problem Cigarette nicotine dependence without complication F17.210 Active 29079975 Problem Psychosis, unspecified psychosis type F29 Active 20990565 Problem Xanax use disorder, moderate F13.20 Active 650843240 Problem Personality disorder F60.9 Active 49979975 ALLERGIES No Information ENCOUNTERS Encounter Location Date Diagnosis [place] [id number] [place] [address] 69129- 1444 Dec, [place] [address] 56194- 2359 Oct, Breast pain N64.4 ; Fibrocystic changes of left breast N60.12 and Bilateral otitis media with effusion H65.93 [facility] [id number] [place] [address] 21761 -4978 Sep, 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 [place] [id number] [place] [address] 61478- 9696 Sep, [place] [address] 70791- 3801 Sep, Methamphetamine use disorder, severe, 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 ; Psychosis, unspecified psychosis type F29 ; Personality disorder F60.9 ; Opioid use disorder, moderate, dependence F11.20 ; Xanax use disorder, moderate F13.20 and BMI 40.0-44.9, adult Z68.41 [place] [id number] [place] [address] 46765- 0383 Sep, Depressive disorder, not elsewhere classified F32.9 and Psychosis, unspecified psychosis type F29 [place] [id number] [place] [address] 60436- 4324 August, [place] [id number] [place] [address] 00605- 8177 August, Depressive disorder, not elsewhere classified F32.9 and Psychosis, unspecified psychosis type F29 [place] [id number] [place] [address] 17946- 8593 August, [place] [id number] [place] [address] 74911- 0712 August, Lumbago with sciatica, right side M54.41 and Other chronic pain G89.29 [facility] [id number] [place] [address] 43101 -6115 Jul, Right sciatic nerve pain M54.31 [place] [id number] [place] [address] 41568- 4700 Jul, Acquired hypothyroidism E03.9 [place] [id number] [place] [address] 29730- 4422 Jul, Depressive disorder, not elsewhere classified F32.9 and Psychosis, unspecified psychosis type F29 [place] [id number] [place] [address] 56825- 9750 Jul, Acquired hypothyroidism E03.9 ; Lumbago with sciatica, right side M54.41 and Lumbar radiculopathy, acute M54.16 [place] [id number] [place] [address] 87111- 7947 Jul, Methamphetamine use disorder, severe, 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 ; Psychosis, unspecified psychosis type F29 ; Personality disorder F60.9 ; Opioid use disorder, moderate, dependence F11.20 ; Xanax use disorder, moderate F13.20 and BMI 40.0-44.9, adult Z68.41 [address] [place] [address] 18092- 5407 Jun, Methamphetamine use disorder, severe, 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 ; Psychosis, unspecified psychosis type F29 ; Personality disorder F60.9 ; Opioid use disorder, moderate, dependence F11.20 and Xanax use disorder, moderate F13.20 [place] [address] [place] [address] 60536- 8702 Jun, Depressive disorder, not elsewhere classified F32.9 and Psychosis, unspecified psychosis type F29 [place] [id number] [place] [address] 27532- 4883 Jun, Lumbar radiculopathy, acute M54.16 [place] [id number] [place] [address] 44725- 5972 Jun, Lumbar radiculopathy, acute M54.16 ; Strain of abdominal wall, initial encounter S39.011A and BMI 40.0-44.9, adult Z68.41 [place] [id number] [place] [address] 99308- 7441 Jun, [place] [id number] [place] [address] 54900- 4047 May, [place] [address] [place] 967225- 0130 May, Methamphetamine use disorder, severe, 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 ; Psychosis, unspecified psychosis type F29 ; Personality disorder F60.9 ; Opioid use disorder, moderate, dependence F11.20 and Xanax use disorder, moderate F13.20 [place] [id number] [place] [address] 88254- 3595 May, [place] [address] 29412- 7917 May, [place] [id number] [place] [address] 76030- 6597 May, Lumbago with sciatica, left side M54.42 ; Lumbago with sciatica, right side M54.41 ; Other chronic pain G89.29 ; Weight gain R63.5 ; Acquired hypothyroidism E03.9 and BMI 40.0-44.9, adult Z68.41 [place] [id number] [place] [address] 85744- 4253 Apr, Cigarette nicotine dependence without complication F17.210 [place] [id number] [place] [address] 63797- 0409 Apr, Acute bilateral low back pain without sciatica M54.5 [place] [id number] [place] [address] 21940- 0601 Apr, Methamphetamine use disorder, severe, 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 [id number] [place] [address] 21398 -0408 12 Apr, 2017 Wheezing R06.2 and Bronchitis J40 [place] [id number] [place] [address] 41092- 9856 02 Apr, 2017 Bronchitis J40 ; Cigarette nicotine dependence without complication F17.210 and Bipolar disease, chronic F31.9 [place] [address] 49179- 0537 Mar, Acquired hypothyroidism E03.[address] 16326- 7711 Mar, Acquired hypothyroidism E03.9 [place] [address] 78109- 2738 Mar, Orthostatic hypotension I95.1 and Non-intractable vomiting with nausea, unspecified vomiting type R11.2 [place] [id number] [place] [address] 52419- 3896 Mar, Strain of lumbar region, initial encounter S39.012A [address] 67310- 3684 Mar, [facility] [place] [id number] [place] [address] 95611 -7015 Mar, Bronchitis J40 [place] [id number] [place] [address] 23757- 6830 05 Mar, 2017 Degenerative joint disease M19.90 ; Elevated LFTs R79.89 ; Adenopathy R59.1 ; Drug use F19.90 ; Pre-diabetes R73.03 and COPD (chronic obstructive pulmonary disease) J44.9 [facility] [place] [id number] [place] [address] 04514 -9864 Feb, Left hand pain M79.642 and Contusion of left hand, initial encounter S60.222A [place] [address] [place] [address]- 6345 Feb, Body aches R52 and Flu-like symptoms R68.89 [place] [address] 95840- 8481 Jan, [place] [address] 19364- 9264 Jan, Bipolar disease, chronic F31.9 ; Acquired hypothyroidism E03.9 and Encounter for immunization Z23 [facility] [address] 79759 -9001 05 Dec, 2016 Crushing injury of left wrist and hand, initial encounter S67.42XA [place] [address] 40553- 5051 Sep, [place] [address] 22638- 2347 Sep, Bipolar disease, chronic F31.9 ; Panic disorder with agoraphobia F40.01 and Proteinuria, unspecified type R80.9 [place] [address] 85902- 2321 August, [place] [address] 49859- 0690 August, Degenerative joint disease M19.90 ; Left-sided chest wall pain R07.89 ; Bipolar disease, chronic F31.9 ; Type 2 diabetes mellitus without complication, without long-term current use of insulin E11.9 ; Acquired hypothyroidism E03.9 and Acute cystitis without hematuria N30.00 [place] [id number] [place] [address] 69999- 8406 Mar, [place] [address] 22539- 4571 Feb, [facility] [address] 76443 -2527 Feb, Right hand pain M79.641 [facility] [address] [address]9627 Feb, Bronchitis J40 ; Acute non-recurrent pansinusitis J01.40 and Seasonal allergic rhinitis due to other allergic trigger J30.89 [facility] [address] [address]- 0758 29 Dec, 2015 [facility] [id number] [place] [address] 41923 -9824 Mar, Left-sided chest wall pain R07.89 and Chronic pain G89.29 [facility] [address] [address]- 8417 Jul, [facility] [id number] [place] [address] 79838- 6483 Jul, [facility] [id number] [place] [address] 91117- 1844 May, [facility] [id number] [place] [address] 29045- 6079 May, [facility] [address] [place] [address] 79358- 5513 Apr, [facility] [id number] [address]- 0897 Apr, [facility] [address] [address]- 9875 Mar, [facility] [id number] [address]- 7306 Mar, [facility] [address] [address]- 5995 Feb, [facility] [address] [address]- 3106 Feb, [facility] [address] [address]- 4670 Jan, [facility] [id number] [place] [address]- 8355 28 Jan, 2014 [facility] [place] [facility] [address] [id number] [place] [address]- 9358 28 Jan, 2014 [facility] [place] [facility] [address] [id number] [place] [address]- 4116 28 Jan, 2014 [facility] [place] [facility] [address] [id number] [place] [address]- 3100 15 Jan, 2014 [facility] [place] [facility] [address] [id number] [place] [address]- 7449 15 Jan, 2014 [facility] [place] [facility] [address] [id number] [place] [address]- 6888 19 Dec, 2013 [facility] [place] [facility] [address] [id number] [place] [address]- 0166 19 Dec, 2013 [facility] [place] [facility] [address] [id number] [place] [address]- 7060 19 Dec, 2013 [facility] [place] [facility] [address] [id number] [place] [address]- 1500 19 Dec, 2013 [facility] [place] [facility] [address] [id number] [place] [address]- 0752 18 Dec, 2013 [facility] [place] [facility] [address] [id number] [place] [address]- 9445 18 Dec, 2013 [facility] [place] [facility] [address] [id number] [place] [address]- 7902 16 Dec, 2013 [facility] [place] [facility] [address] [id number] [place] [address]- 7311 16 Dec, 2013 [facility] [place] [facility] [address] [id number] [place] [address]- 5952 17 Sep, 2013 [facility] [place] [facility] [address] [id number] [place] [address]- 2167 17 Sep, 2013 [facility] [place] [facility] [address] [id number] [place] [address]- 6365 Jul, [facility] [place] [facility] [address] [id number] [place] [address]- 1022 Jul, [facility] [place] [facility] [address] [id number] [place] [address]- 5633 Jul, [facility] [place] [facility] [address] [id number] [place] [address]- 7887 Jul, [facility] [place] [facility] [address] [id number] [place] [address]- 0846 Jul, [facility] [place] [facility] [address] [id number] [place] [address]- 9421 Jul, [facility] [place] [facility] [address] [id number] [place] [address]- 9133 Jul, [facility] [place] [facility] [address] [id number] [place] [address]- 4965 Jul, [facility] [place] [facility] [address] [id number] [place] [address]- 0476 Jun, [facility] [place] [facility] [address] [id number] [place] [address]- 3873 Jun, [facility] [place] [facility] [address] [id number] [place] [address]- 0281 May, [facility] [place] [facility] [address] [id number] [place] [address]- 5117 May, [facility] [place] [facility] [address] [id number] [place] [address]- 9424 May, [facility] [place] [facility] [address] [id number] [place] [address]- 5005 May, [facility] [place] [facility] [address] [id number] [place] [address]- 1783 Apr, [facility] [place] [facility] [address] [id number] [place] [address]- 7261 Apr, [facility] [place] [facility] [address] [id number] [place] [address]- 7966 Mar, [facility] [address] [id number] [place] [address]- 5922 Mar, [facility] [place] [facility] [address] [id number] [place] [address]- 1627 Feb, [facility] [place] [facility] [address] [id number] [place] [address]- 8174 Feb, [facility] [place] [facility] [address] [id number] [place] [address]- 9996 Feb, [facility] [place] [facility] [address] [id number] [place] [address]- 5424 Feb, [facility] [place] [facility] [address] [id number] [place] [address]- 3603 Jan, [facility] [place] [facility] [address] [facility] [id number] [place] [address]- 2926 Jan, [facility] [place] [facility] [address] [id number] [place] [address]- 9778 Jan, [facility] [place] [facility] [address] [id number] [place] [address]- 2556 Jan, [facility] [place] [facility] [address] [facility] [id number] [place] [address]- 6553 Jan, [facility] [place] [facility] [address] [id number] [place] [address]- 0861 Dec, [facility] [place] [facility] [address] [id number] [address]- 2543 Dec, [facility] [place] [facility] [address] [id number] [place] [address]- 5339 Nov, [facility] [place] [facility] [address] [facility] [id number] [place] [address]- 2546 Sep, [facility] [place] [facility] [address] [id number], [place] [address]- 5324 August, [facility] [place] [facility] [address] [id number] [place] [address]- 8111 August, [facility] [address] [id number] [place] [address]- 1346 Jul, [facility] [address] [id number] [place] [address]- 8982 Jul, [facility] [address] [id number] [place] [address]- 0751 Jul, [facility] [address] [id number] [place] [address]- 9472 Jul, [facility] [address] [id number] [place] [address]- 7051 Jul, [facility] [address] [id number] [place] [address]- 9456 Jul, [facility] [address] [id number] [place] [address]- 8848 Jul, [facility] [address] [id number] [place] [address]- 0391 Jun, [facility] [address] [id number] [place] [address]- 9817 Jun, [facility] [address] [id number] [place] [address]- 7455 May, [facility] [address] [id number] [place] [address]- 3977 Apr, [facility] [address] [id number] [place] [address]- 1114 Apr, [facility] [address] [id number] [place] [address]- 8767 Mar, [facility] [address] [id number] [place] [address]- 3783 Mar, [facility] [address] [id number], [place] [address]- 6029 Mar, [facility] [place] [facility] [address] [id number] [place] [address]- 2986 Feb, [facility] [place] [facility] [address] [id number] [place] [address]- 4264 Feb, [facility] [place] [facility] [address] [id number] [place] [address]- 5259 Feb, [facility] [place] [facility] [address] [id number] [place] [address]- 5076 Feb, [facility] [place] [facility] [address] [id number] [place] [address]- 4409 Feb, [facility] [place] [facility] [address] [id number] [place] [address]- 7964 Feb, [facility] [place] [facility] [address] [id number] [place] [address]- 2355 16 Feb, 2012 [facility] [place] [facility] [address] [id number] [place] [address]- 7125 16 Feb, 2012 [facility] [place] [facility] [address] [id number] [place] [address]- 2925 14 Feb, 2012 [facility] [place] [facility] [address] [id number] [place] [address]- 4924 Feb, [facility] [place] [facility] [address] [id number], [place] [address]- 0529 08 Feb, 2012 [facility] [place] [facility] [address] [id number] [place] [address]- 5418 27 Dec, 2011 [facility] [place] [facility] [address] [id number] [place] [address]- 2851 07 Dec, 2011 [facility] [place] [facility] [address] [id number] [place] [address]- 0759 30 Nov, 2011 [facility] [place] [facility] [address] [id number] [place] [address]- 5863 Nov, [facility] [place] [facility] [address] [id number] [place] [address]- 9110 Oct, [facility] [place] [facility] [address] [id number] [place] [address]- 3578 Oct, [facility] [place] [facility] [address] [id number] [place] [address]- 3727 Sep, [facility] [place] [facility] [address] [id number] [place] [address]- 0645 May, [facility] [place] [facility] [address] [id number] [place] [address]- 6517 May, [facility] [place] [facility] [address] [id number] [place] [address]- 1719 May, [facility] [place] [facility] [address] [id number] [place] [address]- 8849 Apr, [facility] [place] [facility] [address] [id number] [place] [address]- 7123 Mar, [facility] [place] [facility] [address] [id number] [place] [address]- 5960 Mar, [facility] [place] [facility] [address] [id number] [place] [address]- 3387 Feb, [facility] [place] [facility] [address] [id number] [place] [address]- 0569 Feb, [facility] [place] [facility] [address] [id number] [place] [address]- 4324 Feb, [facility] [place] [facility] [address] [id number] [place] [address]- 7812 Jan, [facility] [place] [facility] [address] [id number] [place] [address]- 9724 Jan, [facility] [place] [facility] [address] [id number] [place] [address]- 1804 Dec, [facility] [place] [facility] [address] [id number] [place] [address]- 0514 Mar, [facility] [id number] [address]- 5638 Feb, [facility] [id number] [address] Feb, [facility] [id number] [address] Feb, [facility] [address] [address] Jan, [facility] [id number] [address] Dec, [facility] [id number] [address] Nov, [facility] [id number] [address] Sep, [facility] [id number] [address] August, [facility] [id number] [address] May, [facility] [id number] [address] Mar, IMMUNIZATIONS No Known Immunizations SOCIAL HISTORY Never Assessed REASON FOR VISIT f/u PLAN OF CARE Activity Details Follow Up 2 Months, prn Reason: VITAL SIGNS MEDICATIONS Medication Instructions Dosage Frequency Start Date End Date Duration Status Contrave 8-90 MG Orally Twice a day Starter directions 12h May, Jun, 30 day(s) Not-Taking Seroquel 300 MG Orally Once a day 1 tablet 24h Apr, 30 days Active Womens One Daily - Active Gabapentin 300 MG Orally twice a day 1 capsule 12h Jun, 14 days Active HydrOXYzine HCl 10 MG Orally three times a day as needed for anxiety can take up to 5 tablet at a time May, Active Synthroid 50 mcg Orally Once a day 1 tablet on an empty stomach in the morning 24h August, 90 days Active ProAir HFA 108 (90 Base) MCG/ACT Inhalation every 6 hrs 2 puffs as needed 6h Mar, Active Mobic 15 MG Orally Once a day 1 tablet 24h August, Sep, Active Cyclobenzaprine HCl 10 mg Orally 2 times a day 1 tablet as needed 12h 18 Apr, 2017 Active RESULTS No Results PROCEDURES No Known [...] suicide ideat and attempts. [facility] [place], [place] last around 2006 Hospitalization History left foot swollen, stepped in [facility] 05/02/17
--- OUTSIDE RECORDS SUMMARY | 2017-12-24 02:48 | XMS REPORT ---
Author Author YAIMA PEREA Organization [facility] Address [address] [place] [address] Care Team Providers Care Mental Health Director Name Role Phone YAIMA PEREA Unavailable PROBLEMS Type Condition ICD9-CM Code [id number] Code Onset Dates Condition Status SNOMED Code Problem Lumbago with sciatica, left side M54.42 Active 642052235 Problem Other chronic pain G89.29 Active 27328098 Problem Lumbago with sciatica, right side M54.41 Active [id number] Problem Fibrocystic changes of left breast N60.12 Active 31672982 Problem Panic disorder with agoraphobia F40.01 Active 35228201 Problem 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 Active [id number] Problem COPD (chronic obstructive pulmonary disease) J44.9 Active 43276528 Problem Bipolar disease, chronic F31.9 Active 97839636 Problem Morbid (severe) obesity due to excess calories E66.01 Active [id number] Problem Body mass index (BMI) of 40.0-44.9 in adult Z68.41 Active 479692821 Problem Right sciatic nerve pain M54.31 Active 00950754 Problem Depressive disorder, not elsewhere classified F32.9 Active 39139110 Problem Acquired hypothyroidism E03.9 Active 203393009 Problem Pre-diabetes R73.03 Active 996931267 Problem Degenerative joint disease M19.90 Active 934869457 Problem Chronic pain G89.29 Active 20332298 Problem Methamphetamine use disorder, severe, 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 Active 77572570 Problem Opioid use disorder, moderate, dependence F11.20 Active 75989818 Problem Cigarette nicotine dependence without complication F17.210 Active 99669290 Problem Psychosis, unspecified psychosis type F29 Active 70058933 Problem Xanax use disorder, moderate F13.20 Active 730258847 Problem Personality disorder F60.9 Active 72878254 ALLERGIES No Information ENCOUNTERS Encounter Location Date Diagnosis [facility] [id number] [place] [address] 19770- 7101 Dec, [place] [address] 68068- 2416 Oct, Breast pain N64.4 ; Fibrocystic changes of left breast N60.12 and Bilateral otitis media with effusion H65.93 [facility] [id number] [place] [address] 03974 -2521 Sep, 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 [place] [id number] [place] [address] 47076- 2384 Sep, [place] [address] 34434- 9639 Sep, Methamphetamine use disorder, severe, 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 ; Psychosis, unspecified psychosis type F29 ; Personality disorder F60.9 ; Opioid use disorder, moderate, dependence F11.20 ; Xanax use disorder, moderate F13.20 and BMI 40.0-44.9, adult Z68.41 [place] [id number] [place] [address] 87713- 5209 Sep, Depressive disorder, not elsewhere classified F32.9 and Psychosis, unspecified psychosis type F29 [place] [id number] [place] [address] 78668- 5741 August, [place] [id number] [place] [address] 61991- 0792 August, Depressive disorder, not elsewhere classified F32.9 and Psychosis, unspecified psychosis type F29 [place] [id number] [place] [address] 65196- 4787 August, [place] [id number] [place] [address] 32103- 2781 August, Lumbago with sciatica, right side M54.41 and Other chronic pain G89.29 [facility] [id number] [place] [address] 34116 -6099 Jul, Right sciatic nerve pain M54.31 [place] [id number] [place] [address] 06339- 8438 Jul, Acquired hypothyroidism E03.9 [place] [id number] [place] [address] 39308- 4112 Jul, Depressive disorder, not elsewhere classified F32.9 and Psychosis, unspecified psychosis type F29 [place] [id number] [place] [address] 94431- 5000 Jul, Acquired hypothyroidism E03.9 ; Lumbago with sciatica, right side M54.41 and Lumbar radiculopathy, acute M54.16 [place] [id number] [place] [address] 89962- 0402 Jul, Methamphetamine use disorder, severe, 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 ; Psychosis, unspecified psychosis type F29 ; Personality disorder F60.9 ; Opioid use disorder, moderate, dependence F11.20 ; Xanax use disorder, moderate F13.20 and BMI 40.0-44.9, adult Z68.41 [place] [id number] [place] [address] 22711- 7100 Jun, Methamphetamine use disorder, severe, 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 ; Psychosis, unspecified psychosis type F29 ; Personality disorder F60.9 ; Opioid use disorder, moderate, dependence F11.20 and Xanax use disorder, moderate F13.20 [place] [id number] [place] [address] 68650- 8123 Jun, Depressive disorder, not elsewhere classified F32.9 and Psychosis, unspecified psychosis type F29 [place] [id number] [place] [address] 17044- 3436 Jun, Lumbar radiculopathy, acute M54.16 [place] [id number] [place] [address] 29374- 8633 Jun, Lumbar radiculopathy, acute M54.16 ; Strain of abdominal wall, initial encounter S39.011A and BMI 40.0-44.9, adult Z68.41 [place] [id number] [place] [address] 56773- 3883 Jun, [place] [id number] [place] [address] 96580- 1890 May, [place] [address] 446737- 9170 May, Methamphetamine use disorder, severe, 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 ; Psychosis, unspecified psychosis type F29 ; Personality disorder F60.9 ; Opioid use disorder, moderate, dependence F11.20 and Xanax use disorder, moderate F13.20 [place] [id number] [place] [address] 08781- 9299 May, [place] [id number] [place] [address] 58267- 8278 May, [place] [id number] [place] [address] 70134- 6809 May, Lumbago with sciatica, left side M54.42 ; Lumbago with sciatica, right side M54.41 ; Other chronic pain G89.29 ; Weight gain R63.5 ; Acquired hypothyroidism E03.9 and BMI 40.0-44.9, adult Z68.41 [place] [id number] [place] [address] 33410- 4688 Apr, Cigarette nicotine dependence without complication F17.210 [place] [id number] [place] [address] 43231- 2420 Apr, Acute bilateral low back pain without sciatica M54.5 [place] [id number] [place] [address] 44393- 9981 Apr, Methamphetamine use disorder, severe, 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 ; Psychosis, unspecified psychosis type F29 ; Personality disorder F60.9 ; Opioid use disorder, moderate, dependence F11.20 and Xanax use disorder, moderate F13.20 [facility] [address] 48206 -9194 12 Apr, 2017 Wheezing R06.2 and Bronchitis J40 [place] [address] 10194- 2677 02 Apr, 2017 Bronchitis J40 ; Cigarette nicotine dependence without complication F17.210 and Bipolar disease, chronic F31.9 [place] [address] 88428- 7350 Mar, Acquired hypothyroidism E03.9 [place] [address] 12172- 1195 Mar, Acquired hypothyroidism E03.9 [place] [address] 56503- 5915 Mar, Orthostatic hypotension I95.1 and Non-intractable vomiting with nausea, unspecified vomiting type R11.2 [place] [address] 12494- 7727 Mar, Strain of lumbar region, initial encounter S39.012A [place] [address] 44284- 6476 Mar, [facility] [place] [address] 39874 -1125 Mar, Bronchitis J40 [place] [address] 61891- 9205 05 Mar, 2017 Degenerative joint disease M19.90 ; Elevated LFTs R79.89 ; Adenopathy R59.1 ; Drug use F19.90 ; Pre-diabetes R73.03 and COPD (chronic obstructive pulmonary disease) J44.9 [facility] [place] [address] 98741 -8934 Feb, Left hand pain M79.642 and Contusion of left hand, initial encounter S60.222A [place] [address] 32807- 4950 07 Feb, 2017 Body aches R52 and Flu-like symptoms R68.89 [place] [id number] [place] [address] 01966- 6067 Jan, [place] [id number] [place] [address] 30971- 3285 Jan, Bipolar disease, chronic F31.9 ; Acquired hypothyroidism E03.9 and Encounter for immunization Z23 [facility] [id number] [place] [address] 96805 -6605 05 Dec, 2016 Crushing injury of left wrist and hand, initial encounter S67.42XA [place] [address] 14097- 3281 Sep, [place] [address] 28317- 3710 Sep, Bipolar disease, chronic F31.9 ; Panic disorder with agoraphobia F40.01 and Proteinuria, unspecified type R80.9 [place] [id number] [place] [address] 15909- 9609 August, [place] [id number] [place] [address] 72293- 7339 August, Degenerative joint disease M19.90 ; Left-sided chest wall pain R07.89 ; Bipolar disease, chronic F31.9 ; Type 2 diabetes mellitus without complication, without long-term current use of insulin E11.9 ; Acquired hypothyroidism E03.9 and Acute cystitis without hematuria N30.00 [place] [id number] [place] [address] 80602- 2660 Mar, [place] [id number] [place] [address] 16660- 9102 Feb, [facility] [id number] [place] [address] 32987 -3838 Feb, Right hand pain M79.641 [facility] [address] [address] Feb, Bronchitis J40 ; Acute non-recurrent pansinusitis J01.40 and Seasonal allergic rhinitis due to other allergic trigger J30.89 [facility] [place] [id number] [address]- 0956 29 Dec, 2015 [facility] [id number] [place] [address] 69010 -2145 Mar, Left-sided chest wall pain R07.89 and Chronic pain G89.29 [facility] [place] [id number] [place] [address] 78976- 9910 Jul, [facility] [place] [id number] [place] [address] 35405- 1813 Jul, [facility] [place] [id number] [place] [address] 81157- 1489 May, [facility] [place] [id number] [place] [address] 16784- 2108 May, [facility] [place] [id number] [place] [address] 43495- 3321 Apr, [facility] [place] [id number] [place] [address] 42519- 5422 Apr, [facility] [place] [address], [place] [address]- 8304 Mar, [facility] [place] [id number] [place] [address] 83128- 3748 Mar, [facility] [place] [id number] [address]- 3225 Feb, [facility] [place] [id number] [place] [address] 54042- 1002 Feb, [facility] [place] [address] [address]- 6121 Jan, [facility] [place] [id number] [place] [address]- 9942 28 Jan, 2014 [facility] [place] [facility] [address] [id number] [place] [address]- 1812 28 Jan, 2014 [facility] [place] [facility] [address] [id number] [place] [address]- 1893 28 Jan, 2014 [facility] [place] [facility] [address] [id number] [place] [address]- 4301 15 Jan, 2014 [facility] [place] [facility] [address] [id number] [place] [address]- 5272 15 Jan, 2014 [facility] [place] [facility] [address] [id number] [place] [address]- 2786 19 Dec, 2013 [facility] [place] [facility] [address] [id number] [place] [address]- 5005 19 Dec, 2013 [facility] [place] [facility] [address] [id number] [place] [address]- 8582 19 Dec, 2013 [facility] [place] [facility] [address] [id number] [place] [address]- 9509 19 Dec, 2013 [facility] [place] [facility] [address] [id number] [place] [address]- 8967 18 Dec, 2013 [facility] [place] [facility] [address] [facility] [id number] [place] [address]- 0136 18 Dec, 2013 [facility] [place] [facility] [address] [id number] [place] [address]- 9169 16 Dec, 2013 [facility] [place] [facility] [address] [id number] [place] [address]- 9160 16 Dec, 2013 [facility] [place] [facility] [address] [id number] [place] [address]- 7609 17 Sep, 2013 [facility] [place] [facility] [address] [id number] [place] [address]- 0041 17 Sep, 2013 [facility] [place] [facility] [address] [id number] [place] [address]- 0255 15 Jul, 2013 [facility] [place] [facility] [address] [id number] [place] [address]- 1170 15 Jul, 2013 [facility] [place] [facility] [address] [id number] [place] [address]- 3829 Jul, [facility] [place] [facility] [address] [id number] [place] [address]- 5758 Jul, [facility] [place] [facility] [address] [id number] [place] [address]- 3987 Jul, [facility] [place] [facility] [address] [id number] [place] [address]- 8517 Jul, [facility] [place] [facility] [address] [id number] [place] [address]- 5792 Jul, [facility] [place] [facility] [address] [id number] [place] [address]- 0470 Jul, [facility] [place] [facility] [address] [id number] [place] [address]- 4766 Jun, [facility] [place] [facility] [address] [id number] [place] [address]- 4393 Jun, [facility] [place] [facility] [address] [id number] [place] [address]- 4821 May, [facility] [place] [facility] [address] [id number] [place] [address]- 5537 May, [facility] [place] [facility] [address] [id number] [place] [address]- 9792 May, [facility] [place] [facility] [address] [id number] [place] [address]- 9064 May, [facility] [place] [facility] [address] [id number] [place] [address]- 1437 Apr, [facility] [place] [facility] [address] [id number] [place] [address]- 9534 Apr, [facility] [place] [facility] [address] [id number], [place] [address]- 7698 Mar, [facility] [place] [facility] [address] [id number] [place] [address]- 6717 Mar, [facility] [place] [facility] [address] [facility] [id number], [place] [address]- 0419 Feb, [facility] [place] [facility] [address] [facility] [id number] [place] [address]- 5389 Feb, [facility] [place] [facility] [address] [id number], [place] [address]- 7484 Feb, [facility] [place] [facility] [address] [facility] [id number] [place] [address], [place] [address]- 7413 Feb, [facility] [place] [facility] [address] [facility] [id number], [place] [address]- 5969 Jan, [facility] [place] [facility] [address], [place] [address]- 0715 Jan, [facility] [place] [facility] [address] [facility] [id number], [place] [address]- 6489 Jan, [facility] [place] [facility] [id number] [address]- 8522 Jan, [facility] [place] [facility] [id number], [place] [address]- 4277 Jan, [facility] [place] [facility] [address] [facility] [id number], [place] [address]- 9640 Dec, [facility] [place] [facility] [address] [facility] [id number], [place] [address]- 3630 Dec, [facility] [place] [facility] [address] [facility] [id number], [place] [address]- 8806 Nov, [facility] [place] [facility] [address] [facility] [id number], [place] [address]- 7398 Sep, [facility] [place] [facility] [address] [facility] [id number], [place] [address]- 3106 August, [facility] [place] [facility] [address] [id number] [place] [address]- 5498 August, [facility] [address] [id number] [place] [address]- 2093 Jul, [facility] [place] [facility] [address] [id number] [place] [address]- 2666 Jul, [facility] [address] [id number] [place] [address]- 7823 Jul, [facility] [place] [facility] [address] [id number] [place] [address]- 1578 Jul, [facility] [place] [facility] [address] [id number] [place] [address]- 2304 Jul, [facility] [place] [facility] [address] [id number] [place] [address]- 0291 Jul, [facility] [place] [facility] [address] [id number] [place] [address]- 3188 Jul, [facility] [address] [id number] [place] [address]- 6614 Jun, [facility] [address] [id number] [place] [address]- 4260 Jun, [facility] [address] [id number] [place] [address]- 4525 May, [facility] [address] [id number] [place] [address]- 6777 Apr, [facility] [place] [facility] [address] [id number] [place] [address]- 8727 Apr, [facility] [place] [facility] [address] [id number] [place] [address]- 5468 Mar, [facility] [place] [facility] [address] [id number] [place] [address]- 2314 Mar, [facility] [place] [facility] [address] [id number] [place] [address]- 7762 Mar, [facility] [place] [facility] [address] [id number] [place] [address]- 5479 Feb, [facility] [place] [facility] [address] [id number] [place] [address]- 3703 Feb, [facility] [place] [facility] [address] [id number] [place] [address]- 9255 Feb, [facility] [place] [facility] [address] [id number] [place] [address]- 2140 Feb, [facility] [place] [facility] [address] [id number] [place] [address]- 6753 Feb, [facility] [place] [facility] [address] [id number] [place] [address]- 9415 Feb, [facility] [place] [facility] [address] [id number] [place] [address]- 5732 Feb, [facility] [place] [facility] [address] [id number], [place] [address]- 6270 16 Feb, 2012 [facility] [place] [facility] [address] [id number] [place] [address]- 8456 14 Feb, 2012 [facility] [place] [facility] [address] [id number] [place] [address]- 6361 Feb, [facility] [place] [facility] [address] [id number], [place] [address]- 3981 Feb, [facility] [place] [facility] [address] [id number], [place] [address]- 5246 27 Dec, 2011 [facility] [place] [facility] [address] [id number] [place] [address]- 1316 07 Dec, 2011 [facility] [place] [facility] [address] [id number], [place] [address]- 5029 30 Nov, 2011 [facility] [place] [facility] [address] [id number], [place] [address]- 3646 Nov, [facility] [place] [facility] [address] [id number] [place] [address]- 8186 Oct, [facility] [address] [id number] [place] [address]- 5302 Oct, [facility] [place] [facility] [address] [id number] [place] [address]- 8586 Sep, [facility] [address] [id number] [place] [address]- 0588 May, [facility] [place] [facility] [address] [id number] [place] [address]- 2849 May, [facility] [address] [id number] [place] [address]- 0874 May, [facility] [place] [facility] [address] [id number] [place] [address]- 4898 Apr, [facility] [address] [id number] [place] [address]- 9506 Mar, [facility] [address] [id number] [place] [address]- 8450 Mar, [facility] [place] [facility] [address] [facility] [id number] [place] [address]- 7469 Feb, [facility] [address] [facility] [id number] [place] [address]- 7421 Feb, [facility] [place] [facility] [address] [id number] [place] [address]- 0602 Feb, [facility] [place] [facility] [address] [id number] [place] [address]- 1441 Jan, [facility] [place] [facility] [address] [id number] [place] [address]- 7749 Jan, [facility] [place] [facility] [address] [id number] [place] [address]- 2546 Dec, [facility] [place] [facility] [address] [id number] [place] [address]- 0908 Mar, [facility] [address] [id number] [address] Feb, [facility] [place] [id number], [place] [address] Feb, [facility] [place] [id number], [place] [address] Feb, [facility] [place] [id number], [place] [address] Jan, [facility] [place] [id number], [place] [address] Dec, [facility] [place] [id number], [place] [address] Nov, [facility] [place] [id number], [place] [address] Sep, [facility] [place] [id number], [place] [address] August, [facility] [place] [id number], [place] [address] May, [facility] [place] [address] [id number], [place] [address] Mar, IMMUNIZATIONS No Known Immunizations SOCIAL HISTORY Never Assessed REASON FOR VISIT intake PLAN OF CARE Activity Details Follow Up next available Reason:depression VITAL SIGNS MEDICATIONS Medication Instructions Dosage Frequency Start Date End Date Duration Status Synthroid 50 mcg Orally Once a day 1 tablet on an empty stomach in the morning 24h August, 90 days Active Mobic 15 MG Orally Once a day 1 tablet 24h August, Sep, Active Womens One Daily - Active Seroquel 300 MG Orally Once a day 1 tablet 24h Apr, 30 days Active ProAir HFA 108 (90 Base) MCG/ACT Inhalation every 6 hrs 2 puffs as needed 6h Mar, Active Contrave 8-90 MG Orally Twice a day Starter directions 12h May, Jun, 30 day(s) Unknown Gabapentin 300 MG Orally twice a day 1 capsule 12h Jun, 14 days Active Cyclobenzaprine HCl 10 mg Orally 2 times a day 1 tablet as needed 12h Apr, Active HydrOXYzine HCl 10 MG Orally three times a day as needed for anxiety 1 tablet May, 30 days Active RESULTS No Results PROCEDURES Procedure Date Ordered Result Body Site Psych diagnostic evaluation, established patient June 29, 2017 INSTRUCTIONS MEDICATIONS ADMINISTERED No Known Medications [...] suicide ideat and attempts. [facility] [place], [place] last around 2006 Hospitalization History left foot swollen, stepped in [facility] 05/02/17
--- OUTSIDE RECORDS SUMMARY | 2017-12-24 02:49 | XMS REPORT ---
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 Active 203833339738690 Problem COPD (chronic obstructive pulmonary disease) J44.9 Active 79886076 Problem Right sciatic nerve pain M54.31 Active 31282954 Problem Bipolar disease, chronic F31.9 Active 49410468 Problem Body mass index (BMI) of 40.0-44.9 in adult Z68.41 Active 579461392 Problem Other chronic pain G89.29 Active 95854511 Problem Depressive disorder, not elsewhere classified F32.9 Active 94504884 Problem Morbid (severe) obesity due to excess calories E66.01 Active 23610684056516 Problem Chronic pain G89.29 Active 74757584 Problem Acquired hypothyroidism E03.9 Active 743277519 Problem Panic disorder with agoraphobia F40.01 Active 66684498 Problem Degenerative joint disease M19.90 Active 766135261 Problem Xanax use disorder, moderate F13.20 Active 846443648 Problem Methamphetamine use disorder, severe, 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 Active 80754203 Problem Pre-diabetes R73.03 Active 909621931 Problem Opioid use disorder, moderate, dependence F11.20 Active 24069691 Problem Cigarette nicotine dependence without complication F17.210 Active 35555449 Problem Psychosis, unspecified psychosis type F29 Active 75020335 ALLERGIES Substance Reaction Event Type Date Status Tramadol HCl nausea and vomiting Drug Allergy Jun, Active Penicillin V Potassium anaphylaxis Drug Allergy Jun, Active Naproxen swelling Drug Allergy Jun, Active Keflex anaphylaxis Drug Allergy Jun, Active Ibuprofen nausea and vomitting Drug Allergy Jun, Active Aspirin hives Drug Allergy Jun, Active ENCOUNTERS Encounter Location Date Diagnosis [facility] [place] [id number] [place] [address] 84490- 8302 Dec, [facility] [place] [id number] [place] [address] 52148- 7690 Oct, [facility] [id number] [place] [address] 39267 -5998 Sep, 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 [place] [id number] [place] [address] 22052- 6702 Sep, [facility] [place] [id number] [place] [address] 92925- 8188 Sep, Methamphetamine use disorder, severe, 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 ; Psychosis, unspecified psychosis type F29 ; Personality disorder F60.9 ; Opioid use disorder, moderate, dependence F11.20 ; Xanax use disorder, moderate F13.20 and BMI 40.0-44.9, adult Z68.41 [place] [id number] [place] [address] 64319- 9850 Sep, Depressive disorder, not elsewhere classified F32.9 and Psychosis, unspecified psychosis type F29 [place] [id number] [address] 3056 August, [place] [id number] [place] [address] 10521- 7215 August, Depressive disorder, not elsewhere classified F32.9 and Psychosis, unspecified psychosis type F29 [place] [id number] [place] [address] 03928- 9250 August, [place] [id number] [place] [address] 83931- 4108 August, Lumbago with sciatica, right side M54.41 and Other chronic pain G89.29 [facility] [address] [address] Jul, Right sciatic nerve pain M54.31 [facility] [place] [id number] [place] [address] 97525- 5811 Jul, Acquired hypothyroidism E03.9 [facility] [place] [id number] [place] [address] 65051- 4406 Jul, Depressive disorder, not elsewhere classified F32.9 and Psychosis, unspecified psychosis type F29 [place] [id number] [place] [address] 19371- 8515 Jul, Acquired hypothyroidism E03.9 ; Lumbago with sciatica, right side M54.41 and Lumbar radiculopathy, acute M54.16 [facility] [place] [id number] [place] [address] 36645- 8958 Jul, Methamphetamine use disorder, severe, 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 ; Psychosis, unspecified psychosis type F29 ; Personality disorder F60.9 ; Opioid use disorder, moderate, dependence F11.20 ; Xanax use disorder, moderate F13.20 and BMI 40.0-44.9, adult Z68.41 [facility] [place] [address] [place] [address] 05914- 2684 Jun, Methamphetamine use disorder, severe, 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 ; Psychosis, unspecified psychosis type F29 ; Personality disorder F60.9 ; Opioid use disorder, moderate, dependence F11.20 and Xanax use disorder, moderate F13.20 [place] [address], [place] [address]- 6377 Jun, Depressive disorder, not elsewhere classified F32.9 and Psychosis, unspecified psychosis type F29 [facility] [place] [address] [place] [address] 56357- 7089 Jun, Lumbar radiculopathy, acute M54.16 [facility] [place] [id number] [place] [address] 22105- 5820 Jun, Lumbar radiculopathy, acute M54.16 ; Strain of abdominal wall, initial encounter S39.011A and BMI 40.0-44.9, adult Z68.41 [place] [id number] [place] [address] 78172- 6696 Jun, [place] [id number] [place] [address] 68367- 1934 May, [place] [address] 29327- 8494 May, Methamphetamine use disorder, severe, 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 ; Psychosis, unspecified psychosis type F29 ; Personality disorder F60.9 ; Opioid use disorder, moderate, dependence F11.20 and Xanax use disorder, moderate F13.20 [address] [id number] [place] [address] 00172- 8607 May, [place] [id number] [place] [address] 08281- 0023 May, [place] [id number] [place] [address] 83528- 9131 May, Lumbago with sciatica, left side M54.42 ; Lumbago with sciatica, right side M54.41 ; Other chronic pain G89.29 ; Weight gain R63.5 ; Acquired hypothyroidism E03.9 and BMI 40.0-44.9, adult Z68.41 [place] [id number] [place] [address] 51687- 4366 Apr, Cigarette nicotine dependence without complication F17.[address] 42772- 1464 Apr, Acute bilateral low back pain without sciatica M54.5 [place] [id number] [place] [address] 59936- 7912 Apr, Methamphetamine use disorder, severe, 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 ; Psychosis, unspecified psychosis type F29 ; Personality disorder F60.9 ; Opioid use disorder, moderate, dependence F11.20 and Xanax use disorder, moderate F13.20 [facility] [id number] [place] [address] 72086 -9792 Apr, Wheezing R06.2 and Bronchitis J40 [place] [address] 58883- 4170 Apr, Bronchitis J40 ; Cigarette nicotine dependence without complication F17.210 and Bipolar disease, chronic F31.9 [place] [address] 16595- 3286 Mar, Acquired hypothyroidism E03.9 [place] [address] 08308- 3385 Mar, Acquired hypothyroidism E03.9 [place] [address] 27337- 7816 Mar, Orthostatic hypotension I95.1 and Non-intractable vomiting with nausea, unspecified vomiting type R11.2 [place] [address] 61320- 6391 Mar, Strain of lumbar region, initial encounter S39.012A [place] [id number] [place] [address] 41080- 0504 Mar, [facility] [id number] [place] [address] 67363 -4931 Mar, Bronchitis J40 [place] [id number] [place] [address] 36140- 3032 05 Mar, 2017 Degenerative joint disease M19.90 ; Elevated LFTs R79.89 ; Adenopathy R59.1 ; Drug use F19.90 ; Pre-diabetes R73.03 and COPD (chronic obstructive pulmonary disease) J44.9 [facility] [id number] [place] [address] 44252 -0811 Feb, Left hand pain M79.642 and Contusion of left hand, initial encounter S60.222A [place] [address] 90102- 6284 Feb, Body aches R52 and Flu-like symptoms R68.89 [place] [address] 19674- 6814 Jan, [place] [address] 47234- 7109 Jan, Bipolar disease, chronic F31.9 ; Acquired hypothyroidism E03.9 and Encounter for immunization Z23 [facility] [address] [place] [address] 54170 -8863 05 Dec, 2016 Crushing injury of left wrist and hand, initial encounter S67.42XA [address] 80095- 2860 Sep, [address] 45682- 3693 Sep, Bipolar disease, chronic F31.9 ; Panic disorder with agoraphobia F40.01 and Proteinuria, unspecified type R80.[address] 27153- 0346 August, [address] 91831- 4292 August, Degenerative joint disease M19.90 ; Left-sided chest wall pain R07.89 ; Bipolar disease, chronic F31.9 ; Type 2 diabetes mellitus without complication, without long-term current use of insulin E11.9 ; Acquired hypothyroidism E03.9 and Acute cystitis without hematuria N30.[address] 19382- 5358 Mar, [place] [address] 49379- 6573 Feb, [facility] [address] [place] [address] 94600 -6000 Feb, Right hand pain M79.641 [facility] [id number] [place] [address] 20385 -4779 Feb, 2016 Bronchitis J40 ; Acute non-recurrent pansinusitis J01.40 and Seasonal allergic rhinitis due to other allergic trigger J30.89 [facility] [place] [id number] [place] [address] 66216- 6501 Dec, [facility] [id number] [place] [address] 56378 -1659 Mar, Left-sided chest wall pain R07.89 and Chronic pain G89.29 [facility] [place] [id number] [place] [address] 53490- 5634 Jul, [facility] [place] [id number] [place] [address] 33644- 7031 Jul, [facility] [place] [id number] [place] [address] 74258- 3527 May, [facility] [place] [id number] [place] [address] 94868- 9747 May, [facility] [place] [id number] [place] [address] 94961- 8985 Apr, [facility] [place] [address] [place] [address] 67500- 2196 Apr, [facility] [place] [id number] [place] [address] 12702- 8534 Mar, [facility] [place] [id number] [place] [address] 46142- 7838 Mar, [facility] [place] [id number] [place] [address] 88927- 4637 Feb, [facility] [place] [id number] [place] [address] 09686- 5296 Feb, [facility] [place] [id number] [place] [address] [place] [address]- 8992 28 Jan, 2014 [facility] [place] [facility] [address] [id number] [place] [address]- 6862 28 Jan, 2014 [facility] [place] [facility] [address] [id number] [place] [address]- 7978 28 Jan, 2014 [facility] [place] [facility] [address] [id number] [place] [address]- 0440 28 Jan, 2014 [facility] [place] [facility] [address] [id number] [place] [address]- 9118 15 Jan, 2014 [facility] [place] [facility] [address] [id number] [place] [address]- 4318 15 Jan, 2014 [facility] [place] [facility] [address] [id number] [place] [address]- 3992 19 Dec, 2013 [facility] [place] [facility] [address] [id number] [place] [address]- 3421 19 Sep, 2013 [facility] [place] [facility] [address] [id number] [place] [address]- 6338 19 Sep, 2013 [facility] [place] [facility] [address] [id number] [place] [address]- 3571 19 Dec, 2013 [facility] [place] [facility] [address] [id number] [place] [address]- 6217 18 Sep, 2013 [facility] [place] [facility] [address] [id number] [place] [address]- 1373 18 Sep, 2013 [facility] [place] [facility] [address] [id number], [place] [address]- 7692 16 Sep, 2013 [facility] [place] [facility] [address] [id number] [place] [address]- 4171 16 Dec, 2013 [facility] [place] [facility] [address] [id number], [place] [address]- 5461 17 Sep, 2013 [facility] [place] [facility] [address] [id number], [place] [address]- 7148 17 Sep, 2013 [facility] [place] [facility] [address] [id number] [place] [address]- 0327 Jul, [facility] [place] [facility] [address] [id number] [place] [address]- 1629 Jul, [facility] [place] [facility] [address] [id number] [place] [address]- 4603 Jul, [facility] [place] [facility] [address] [id number] [place] [address]- 6201 Jul, [facility] [place] [facility] [address] [id number] [place] [address]- 6004 Jul, [facility] [place] [facility] [address] [id number] [place] [address]- 4760 Jul, [facility] [place] [facility] [address] [id number] [place] [address]- 2891 Jul, [facility] [place] [facility] [address] [id number] [place] [address]- 3272 Jul, [facility] [place] [facility] [address] [id number] [place] [address]- 7006 Jun, [facility] [place] [facility] [address] [id number] [place] [address]- 6580 Jun, [facility] [place] [facility] [address] [id number] [place] [address]- 2017 May, [facility] [place] [facility] [address] [id number] [place] [address]- 4155 May, [facility] [place] [facility] [address] [id number] [place] [address]- 2689 May, [facility] [place] [facility] [address] [id number] [place] [address]- 3809 May, [facility] [place] [facility] [address] [id number] [place] [address]- 5984 Apr, [facility] [place] [facility] [address] [id number], [place] [address]- 6718 Apr, [facility] [place] [facility] [address] [id number] [place] [address]- 1644 Mar, [facility] [place] [facility] [address] [id number] [place] [address]- 4251 Mar, [facility] [place] [facility] [address] [id number] [place] [address]- 4411 Feb, [facility] [place] [facility] [address] [id number] [place] [address]- 8210 Feb, [facility] [place] [facility] [address] [id number] [place] 4123 Feb, [facility] [place] [facility] [address] [id number] [place] [address]- 2089 Feb, [facility] [place] [facility] [address] [id number] 5642 Jan, [facility] [place] [facility] [address] [id number], [place] [address]- 7810 Jan, [facility] [place] [facility] [address] [id number], [place] [address]- 5343 Jan, [facility] [place] [facility] [address] [id number], [place] [address]- 8207 Jan, [facility] [place] [facility] [address] [id number], [place] [address]- 1426 Jan, [facility] [place] [facility] [address] [id number], [place] [address]- 2964 Dec, [facility] [place] [facility] [address] [id number], [place] [address]- 1201 Dec, [facility] [place] [facility] [address] [id number], [place] [address]- 8360 Nov, [facility] [place] [facility] [address] [id number] [place] [address]- 5904 Sep, [facility] [place] [facility] [address] [id number] [place] [address]- 2896 August, [facility] [address] [id number] [place] [address]- 9126 August, [facility] [address] [id number] [place] [address]- 8186 Jul, [facility] [address] [id number] [place] [address]- 9698 Jul, [facility] [address] [id number] [place] [address]- 0566 Jul, [facility] [address] [id number] [place] [address]- 4070 Jul, [facility] [address] [id number] [place] [address]- 2641 Jul, [facility] [address] [id number] [place] [address]- 3885 Jul, [facility] [address] [id number] [place] [address]- 1417 Jul, [facility] [address] [id number] [place] [address]- 8184 Jun, [facility] [address] [id number] [place] [address]- 2526 Jun, [facility] [address] [id number] [place] [address]- 2545 May, [facility] [address] [id number] [place] [address]- 0975 Apr, [facility] [address] [id number] [place] [address]- 9586 Apr, [facility] [address] [id number] [place] [address]- 2546 Mar, [facility] [address] [id number] [place] [address]- 0570 Mar, [facility] [place] [facility] [address] [id number] [place] [address]- 0677 Mar, [facility] [place] [facility] [address] [id number] [place] [address]- 3759 Feb, [facility] [place] [facility] [address] [id number] [place] [address]- 3761 Feb, [facility] [place] [facility] [address] [id number] [place] [address]- 0364 Feb, [facility] [place] [facility] [address] [id number] [place] [address]- 4549 Feb, [facility] [place] [facility] [address] [id number] [place] [address]- 1625 Feb, [facility] [place] [facility] [address] [id number] [place] [address]- 2304 Feb, [facility] [place] [facility] [address] [id number] [place] [address]- 2060 Feb, [facility] [place] [facility] [address] [id number] [place] [address]- 2162 16 Feb, 2012 [facility] [place] [facility] [address] [id number], [place] [address]- 8380 14 Feb, 2012 [facility] [place] [facility] [address] [id number], [place] [address]- 0338 Feb, [facility] [place] [facility] [address] [id number], [place] [address]- 5064 08 Feb, 2012 [facility] [place] [facility] [address] [id number] [place] [address]- 8075 27 Dec, 2011 [facility] [place] [facility] [address] [id number], [place] [address]- 3028 07 Dec, 2011 [facility] [place] [facility] [address] [id number] [place] [address]- 1788 30 Nov, 2011 [facility] [place] [facility] [address] [id number] [place] [address]- 7075 Nov, [facility] [place] [facility] [address] [id number] [place] [address]- 7167 Oct, [facility] [place] [facility] [address] [id number] [place] [address]- 4986 Oct, [facility] [place] [facility] [address] [id number] [place] [address]- 2096 Sep, [facility] [place] [facility] [address] [id number] [place] [address]- 2891 May, [facility] [place] [facility] [address] [id number] [place] [address]- 7720 May, [facility] [place] [facility] [address] [id number] [place] [address]- 1436 May, [facility] [place] [facility] [address] [id number] [place] [address]- 5938 Apr, [facility] [place] [facility] [address] [id number] [place] [address]- 3816 Mar, [facility] [place] [facility] [address] [id number] [place] [address]- 6175 Mar, [facility] [place] [facility] [address] [facility] [id number] [place] [address]- 5866 Feb, [facility] [place] [facility] [address] [id number] [place] [address]- 5973 Feb, [facility] [place] [facility] [address] [id number] [place] [address] 2540 Feb, [facility] [place] [facility] [address] [id number] [place] [address]- 8682 Jan, [facility] [place] [facility] [address] [id number] [place] [address]- 1607 Jan, [facility] [place] [facility] [address] [id number] [place] [address]- 3384 Dec, [facility] [place] [address] [id number] [address]- 1495 Mar, [facility] [place] [address], [place] [address]- 9506 Feb, [facility] [place] [address], [place] [address]- 1976 Feb, [facility] [place] [address], [place] [address]- 4606 Feb, [facility] [place] [address], [place] [address]- 3713 Jan, [facility] [place] [address], [place] [address]- 8186 Dec, [facility] [place] [address], [place] [address]- 3698 Nov, [facility] [place] [id number] [place] [address] Sep, [facility], [place] [id number], [place] [address] August, [facility], [place] [id number] [place] [address] May, [facility], [place] [id number] [address] Mar, IMMUNIZATIONS No Known Immunizations SOCIAL HISTORY Never Assessed REASON FOR VISIT Abdominal pain- lifted some couches 3 days ago and ever since then her lower abd hurleo Gamboa RN PLAN OF CARE Activity Details Follow Up Routine appt Reason: VITAL SIGNS Height 63 in 2017-06-08 Weight 247 lbs 2017-06-08 Temperature 98.0 degrees Fahrenheit 2017-06-08 Heart Rate 80 bpm 2017-06-08 Respiratory Rate 22 2017-06-08 BMI 43.75 kg/m2 2017-06-08 Blood pressure systolic 122 mmHg 2017-06-08 Blood pressure diastolic 82 mmHg 2017-06-08 MEDICATIONS Medication Instructions Dosage Frequency Start Date End Date Duration Status Seroquel 300 MG Orally Once a day 1 tablet 24h Apr, 30 days Active Mobic 15 MG Orally Once a day 1 tablet 24h August, Sep, Active Cyclobenzaprine HCl 10 mg Orally 2 times a day 1 tablet as needed 12h Apr, Active Contrave 8-90 MG Orally Twice a day Starter directions 12h May, Jun, 30 day(s) Not-Taking HydrOXYzine HCl 10 MG Orally three times a day as needed for anxiety 1 tablet May, 30 days Active Synthroid 50 mcg Orally Once a day 1 tablet on an empty stomach in the morning 24h August, 90 days Active Gabapentin 300 MG Orally twice a day 1 capsule before bedtime 12h Jun, 14 days Active ProAir HFA 108 (90 Base) MCG/ACT Inhalation every 6 hrs 2 puffs as needed 6h Mar, Active Womens One Daily - Active RESULTS No Results PROCEDURES No Known [...] Hospitalization History left foot swollen, stepped in [facility] 05/02/17
--- OUTSIDE RECORDS SUMMARY | 2017-12-24 02:49 | XMS REPORT ---
Author Author [facility]ANDI [facility]ELENDEZ [facility] Address [address] [place] [address] Phone Unavailable Care Team Providers Care Medicaid Service Coordinator Name Role Phone BRANDI MELENDEZ Unavailable Unavailable PROBLEMS Type Condition ICD9-CM Code [id number] Code Onset Dates Condition Status SNOMED Code Problem Psychosis, unspecified psychosis type F29 Active 55522127 Problem Lumbago with sciatica, left side M54.42 Active 035817090 Problem Personality disorder F60.9 Active 15345532 Problem Right sciatic nerve pain M54.31 Active 79234465 Problem Bipolar disease, chronic F31.9 Active 84388491 Problem Depressive disorder, not elsewhere classified F32.9 Active 80126326 Problem Other chronic pain G89.29 Active 32204163 Problem Lumbago with sciatica, right side M54.41 Active 836797831308193 Problem Morbid (severe) obesity due to excess calories E66.01 Active 71289396782947 Problem Body mass index (BMI) of 40.0-44.9 in adult Z68.41 Active 786034220 Problem Degenerative joint disease M19.90 Active 136196986 Problem Chronic pain G89.29 Active 11338543 Problem COPD (chronic obstructive pulmonary disease) J44.9 Active 70955607 Problem Panic disorder with agoraphobia F40.01 Active 42459743 Problem Cigarette nicotine dependence without complication F17.210 Active 58386080 Problem Xanax use disorder, moderate F13.20 Active 141066121 Problem Acquired hypothyroidism E03.9 Active 157937791 Problem Methamphetamine use disorder, severe, 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 Active 59526955 Problem Pre-diabetes R73.03 Active 162471934 Problem Opioid use disorder, moderate, dependence F11.20 Active 82408260 ALLERGIES Substance Reaction Event Type Date Status Tramadol HCl nausea and vomiting Drug Allergy Apr, Active Penicillin V Potassium anaphylaxis Drug Allergy Apr, Active Keflex anaphylaxis Drug Allergy Apr, Active Ibuprofen Unknown Drug Allergy Apr, Active Aspirin hives Drug Allergy Apr, Active ENCOUNTERS Encounter Location Date Diagnosis [facility] [id number] [place] [address] 14700- 5973 Dec, [facility] [id number] [place] [address] 52698- 7486 Oct, [facility] [id number] [place] [address] 94248- 0185 Sep, [facility] [address] 85508- 4046 Sep, Methamphetamine use disorder, severe, 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 ; Psychosis, unspecified psychosis type F29 ; Personality disorder F60.9 ; Opioid use disorder, moderate, dependence F11.20 ; Xanax use disorder, moderate F13.20 and BMI 40.0-44.9, adult Z68.41 [place] [address] 13615- 7869 Sep, Depressive disorder, not elsewhere classified F32.9 and Psychosis, unspecified psychosis type F29 [facility] [id number] [place] [address] 49277- 4791 August, [place] [id number] [place] [address] 13589- 6805 August, Depressive disorder, not elsewhere classified F32.9 and Psychosis, unspecified psychosis type F29 [facility] [id number] [place] [address] 84385- 1930 August, [facility] [id number] [place] [address] 60755- 0645 August, Lumbago with sciatica, right side M54.41 and Other chronic pain G89.29 [facility] [id number] [place] [address] 69027 -7086 Jul, Right sciatic nerve pain M54.31 [facility] [id number] [place] [address] 97378- 0702 Jul, Acquired hypothyroidism E03.9 [place] [id number] [place] [address] 25500- 4442 Jul, Depressive disorder, not elsewhere classified F32.9 and Psychosis, unspecified psychosis type F29 [place] [address] [place] [address] 23037- 9736 Jul, Acquired hypothyroidism E03.9 ; Lumbago with sciatica, right side M54.41 and Lumbar radiculopathy, acute M54.16 [place] [address] [place] [address] 20210- 2206 Jul, Methamphetamine use disorder, severe, 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 ; Psychosis, unspecified psychosis type F29 ; Personality disorder F60.9 ; Opioid use disorder, moderate, dependence F11.20 ; Xanax use disorder, moderate F13.20 and BMI 40.0-44.9, adult Z68.41 [place] [address] [place] [address] 48944- 7849 Jun, Methamphetamine use disorder, severe, 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16 ; Strain of abdominal wall, initial encounter S39.011A and BMI 40.0-44.9, adult Z68.41 [place] [id number] [place] [address] 27888- 6913 Jun, [place] [id number] [place] [address] 75904- 6097 May, [place] [address] 24250- 7759 May, Methamphetamine use disorder, severe, 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 ; Psychosis, unspecified psychosis type F29 ; Personality disorder F60.9 ; Opioid use disorder, moderate, dependence F11.20 and Xanax use disorder, moderate F13.20 [place] [address] 91022- 8490 May, [place] [address] 42299- 4181 May, [place] [address] 53634- 9333 May, Lumbago with sciatica, left side M54.42 ; Lumbago with sciatica, right side M54.41 ; Other chronic pain G89.29 ; Weight gain R63.5 ; Acquired hypothyroidism E03.9 and BMI 40.0-44.9, adult Z68.41 [place] [address] 29702- 1071 Apr, Cigarette nicotine dependence without complication F17.210 [place] [id number] [place] [address] 77465- 4138 Apr, Acute bilateral low back pain without sciatica M54.5 [place] [id number] [place] [address] 69756- 1078 Apr, Methamphetamine use disorder, severe, 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 ; Psychosis, unspecified psychosis type F29 ; Personality disorder F60.9 ; Opioid use disorder, moderate, dependence F11.20 and Xanax use disorder, moderate F13.20 [facility] [id number] [place] [address] 52047 -2078 Apr, Wheezing R06.2 and Bronchitis J40 [place] [id number] [place] [address] 66449- 5130 Apr, Bronchitis J40 ; Cigarette nicotine dependence without complication F17.210 and Bipolar disease, chronic F31.9 [place] [id number] [place] [address] 71273- 6335 Mar, Acquired hypothyroidism E03.9 [place] [address] 65279- 4188 Mar, Acquired hypothyroidism E03.9 [place] [address] 31706- 8855 Mar, Orthostatic hypotension I95.1 and Non-intractable vomiting with nausea, unspecified vomiting type R11.[address] 83614- 4634 14 Mar, 2017 Strain of lumbar region, initial encounter S39.012A [place] [address] 22283- 9893 Mar, [facility] [address] [place] [address] 20243 -8245 Mar, Bronchitis J40 [place] [id number] [place] [address] 04848- 5402 05 Mar, 2017 Degenerative joint disease M19.90 ; Elevated LFTs R79.89 ; Adenopathy R59.1 ; Drug use F19.90 ; Pre-diabetes R73.03 and COPD (chronic obstructive pulmonary disease) J44.9 [facility] [id number] [place] [address] 63171 -8295 30 Feb, 2017 Left hand pain M79.642 and Contusion of left hand, initial encounter S60.222A [place] [id number] [place] [address] 34503- 3080 07 Feb, 2017 Body aches R52 and Flu-like symptoms R68.89 [place] [address] 76934- 2782 Jan, [place] [id number] [place] [address] 28850- 4145 Jan, Bipolar disease, chronic F31.9 ; Acquired hypothyroidism E03.9 and Encounter for immunization Z23 [facility] [place] [id number] [place] [address] 52464 -0026 05 Dec, 2016 Crushing injury of left wrist and hand, initial encounter S67.42XA [place] [address] 80194- 6118 Sep, [address] 73079- 0619 Sep, Bipolar disease, chronic F31.9 ; Panic disorder with agoraphobia F40.01 and Proteinuria, unspecified type R80.[address] 00648- 3699 August, [place] [address] 69673- 2514 August, Degenerative joint disease M19.90 ; Left-sided chest wall pain R07.89 ; Bipolar disease, chronic F31.9 ; Type 2 diabetes mellitus without complication, without long-term current use of insulin E11.9 ; Acquired hypothyroidism E03.9 and Acute cystitis without hematuria N30.00 [place] [id number] [place] [address] 88085- 9729 Mar, [place] [id number] [place] [address] 73238- 1561 Feb, [facility] [place] [id number] [place] [address] 03705 -0536 Feb, Right hand pain M79.641 [facility] [place] [id number] [place] [address] 78247 -2471 Feb, Bronchitis J40 ; Acute non-recurrent pansinusitis J01.40 and Seasonal allergic rhinitis due to other allergic trigger J30.89 [facility] [address] [facility] [id number] [address]- 6904 29 Dec, 2015 [facility] [address] [address] -6720 Mar, Left-sided chest wall pain R07.89 and Chronic pain G89.29 [facility] [address] [facility] [id number], [place] [address]- 8647 Jul, [facility] [address] [facility] [id number] [place] [address] 74998- 0841 Jul, [facility] [id number] [place] [address] 90187- 8676 May, [facility] [id number] [place] [address] 16341- 1114 May, [facility] [id number] [place] [address] 83077- 4208 Apr, [facility] [address] [place] [address] 48616- 3590 Apr, [facility] [id number] [place] [address] 98151- 9884 Mar, [facility] [address] [address]- 5680 Mar, [facility] [address] [place] [address] 78389- 0308 Feb, [facility] [id number] [address]- 3095 Feb, [facility] [id number] [place] [address] 33730- 2286 Jan, [facility] [address] [address]- 7123 Jan, [facility] [address] [address]- 7396 Jan, [facility] [place] [facility] [address] [id number] [place] [address]- 8644 28 Jan, 2014 [facility] [place] [facility] [address] [id number] [place] [address]- 8138 15 Jan, 2014 [facility] [place] [facility] [address] [id number] [place] [address]- 0874 15 Jan, 2014 [facility] [place] [facility] [address] [id number] [place] [address]- 8446 19 Dec, 2013 [facility] [place] [facility] [address] [id number] [place] [address]- 9551 19 Dec, 2013 [facility] [place] [facility] [address] [id number] [place] [address]- 9251 19 Dec, 2013 [facility] [place] [facility] [address] [id number] [place] [address]- 4119 19 Dec, 2013 [facility] [place] [facility] [address] [id number] [place] [address]- 4262 18 Dec, 2013 [facility] [place] [facility] [address] [id number] [place] [address]- 0021 18 Dec, 2013 [facility] [place] [facility] [address] [id number], [place] [address]- 6697 16 Dec, 2013 [facility] [place] [facility] [address] [id number], [place] [address]- 0042 16 Dec, 2013 [facility] [place] [facility] [address] [id number], [place] [address]- 6610 17 Sep, 2013 [facility] [place] [facility] [address] [id number], [place] [address]- 2277 17 Sep, 2013 [facility] [place] [facility] [address] [id number], [place] [address]- 1342 15 Jul, 2013 [facility] [place] [facility] [address] [id number], [place] [address]- 6353 15 Jul, 2013 [facility] [place] [facility] [address] [id number], [place] [address]- 9452 Jul, [facility] [place] [facility] [address] [id number] [place] [address]- 4000 Jul, [facility] [place] [facility] [address] [id number] [place] [address]- 6478 Jul, [facility] [place] [facility] [address] [id number] [place] [address]- 5800 Jul, [facility] [place] [facility] [address] [id number] [place] [address]- 1112 Jul, [facility] [place] [facility] [address] [id number] [place] [address]- 5102 Jul, [facility] [place] [facility] [address] [id number] [place] [address]- 2480 Jun, [facility] [place] [facility] [address] [id number] [place] [address]- 4222 Jun, [facility] [place] [facility] [address] [id number] [place] [address]- 3136 May, [facility] [place] [facility] [address] [facility] [id number] [place] [address]- 5713 May, [facility] [place] [facility] [address] [facility] [id number] [place] [address]- 5646 May, [facility] [place] [facility] [id number] [place] [address]- 1029 May, [facility] [place] [facility] [address] [facility] [id number] [place] [address]- 1107 Apr, [facility] [place] [facility] [address] [id number] [place] [address]- 7492 Apr, [facility] [place] [facility] [address] [facility] [id number] [place] [address]- 2235 Mar, [facility] [place] [facility] [address] [facility] [id number] [place] [address]- 5264 Mar, [facility] [place] [facility] [address] [id number] [place] [address] 254 Feb, [facility] [place] [facility] [address] [id number] [place] [address]- 0363 Feb, [facility] [place] [facility] [address] [id number] [place] [address]- 2543 Feb, [facility] [place] [facility] [address] [id number] [place] [address] 2543 Feb, [facility] [address] [id number] [place] [address]- 0151 Jan, [facility] [place] [facility] [address] [id number] [place] [address]- 3072 Jan, [facility] [address] [id number] [place] [address]- 4292 Jan, [facility] [place] [facility] [address] [id number] [place] [address]- 3644 Jan, [facility] [place] [facility] [address] [id number] [place] [address]- 6010 Jan, [facility] [place] [facility] [address] [id number] [place] [address]- 5533 Dec, [facility] [place] [facility] [address] [id number] [place] [address]- 2541 Dec, [facility] [place] [facility] [address] [id number], [place] [address]- 2546 Nov, [facility] [place] [facility] [address] [id number] [place] [address]- 2543 Sep, [facility] [place] [facility] [address] [id number] [place] [address]- 2546 August, [facility] [place] [facility] [address] [id number] [place] [address]- 2546 August, [facility] [place] [facility] [address] [id number] [place] [address]- 5049 Jul, [facility] [address] [id number] [place] [address]- 3171 Jul, [facility] [place] [facility] [address] [id number] [place] [address]- 3346 Jul, [facility] [address] [id number] [place] [address]- 5843 Jul, [facility] [place] [facility] [address] [id number] [place] [address]- 9358 Jul, [facility] [address] [id number] [place] [address]- 5842 Jul, [facility] [place] [facility] [address] [id number] [place] [address]- 0163 Jul, [facility] [address] [id number] [place] [address]- 1009 Jun, [facility] [place] [facility] [address] [id number] [place] [address]- 5038 Jun, [facility] [address] [id number] [place] [address]- 8980 May, [facility] [address] [id number] [place] [address]- 8575 Apr, [facility] [address] [id number] [place] [address]- 1753 Apr, [facility] [place] [facility] [address] [id number] [place] [address]- 1880 Mar, [facility] [place] [facility] [address] [id number] [place] 4240 Mar, [facility] [place] [facility] [address] [id number] [place] 2143 Mar, [facility] [place] [facility] [address] [id number] [place] [address]- 8622 Feb, [facility] [place] [facility] [address] [id number] [place] [address]- 6806 24 Feb, 2012 [facility] [place] [facility] [address] [id number] [place] [address]- 5272 24 Feb, 2012 [facility] [place] [facility] [address] [id number] [place] [address]- 4214 24 Feb, 2012 [facility] [place] [facility] [address] [id number] [place] [address]- 4746 Feb, [facility] [place] [facility] [address] [id number] [place] [address]- 2455 Feb, [facility] [place] [facility] [address] [id number] [place] [address]- 0770 16 Feb, 2012 [facility] [place] [facility] [address] [id number] [place] [address]- 6139 16 Feb, 2012 [facility] [place] [facility] [address] [id number] [place] [address]- 6783 14 Feb, 2012 [facility] [place] [facility] [address] [id number] [place] [address]- 7328 Feb, [facility] [place] [facility] [address] [id number] [place] [address]- 2232 Feb, [facility] [place] [facility] [address] [id number] [place] [address]- 2361 27 Dec, 2011 [facility] [place] [facility] [address] [id number] [place] [address]- 1062 07 Dec, 2011 [facility] [place] [facility] [address] [id number] [place] [address]- 1205 30 Nov, 2011 [facility] [place] [facility] [address] [id number] [place] [address]- 9044 Nov, [facility] [place] [facility] [address] [id number] [place] [address]- 1197 Oct, [facility] [place] [facility] [address] [id number] [place] [address]- 4738 Oct, [facility] [place] [facility] [address] [id number] [place] [address]- 6696 Sep, [facility] [place] [facility] [address] [id number] [place] [address]- 7255 May, [facility] [place] [facility] [address] [id number] [place] [address]- 7396 May, [facility] [place] [facility] [address] [id number] [place] [address]- 1737 May, [facility] [place] [facility] [address] [id number] [place] 2495 Apr, [facility] [place] [facility] [address] [id number] [place] [address]- 0781 Mar, [facility] [place] [facility] [address] [id number] [place] [address]- 8186 Mar, [facility] [place] [facility] [address] [id number], [place] [address]- 0208 Feb, [facility] [place] [facility] [address] [id number] [place] [address]- 3276 Feb, [facility] [place] [facility] [address] [facility] [id number] [place] [address]- 3986 Feb, [facility] [place] [facility] [address] [id number], [place] [address]- 9259 Jan, [facility] [place] [facility] [address] [id number], [place] [address]- 4774 Jan, [facility] [place] [facility] [address] [id number] [place] [address]- 0912 Dec, [facility] [place] [facility] [address] [id number], [place] [address]- 4768 Mar, [facility] [place] [facility] [address] [id number] [place] [address]- 6525 Feb, [facility] [place] [facility] [address] [id number] [address]- 9[address] Feb, [facility] [id number], [place] [address] Feb, [facility] [id number], [place] [address] Jan, [facility] [id number], [place] [address] Dec, [facility] [id number] [place] [address] Nov, [facility] [id number] [place] [address] Sep, [facility] [id number] [place] [id number] August, [facility] [id number] [place] [address] May, [facility] [id number], [place] [address] Mar, IMMUNIZATIONS No Known Immunizations SOCIAL HISTORY Never Assessed REASON FOR VISIT N/V/D for 2 weeks. kbullardrn, cough congestion for 2 weeks. PLAN OF CARE Activity Details Follow Up prn bronchitis Reason: VITAL SIGNS Height 63 in 2017-04-21 Weight 211.4 lbs 2017-04-21 Temperature 98.5 degrees Fahrenheit 2017-04-21 Heart Rate 76 bpm 2017-04-21 Respiratory Rate 20 2017-04-21 BMI 37.44 kg/m2 2017-04-21 Blood pressure systolic 116 mmHg 2017-04-21 Blood pressure diastolic 74 mmHg 2017-04-21 MEDICATIONS Medication Instructions Dosage Frequency Start Date End Date Duration Status Doxycycline Hyclate 100 mg Orally every 12 hrs 1 capsule 12h Apr, Apr, 10 days Active ProAir HFA 108 (90 Base) MCG/ACT Inhalation every 6 hrs 2 puffs as needed 6h Mar, Active Womens One Daily - Active MetFORMIN HCl ER 500 mg Orally twice a day 1 tablet with evening meal 12h August, 90 days Not-Taking Fluoxetine 40 mg Orally Once a day 1 capsule in the morning 24h August, 90 days Active Cyclobenzaprine HCl 10 MG Orally Three times a day PRN 1 tablet as needed Active Synthroid 50 mcg Orally Once a day 1 tablet on an empty stomach in the morning 24h August, 90 days Active Mobic 15 MG Orally Once a day 1 tablet 24h August, Sep, 30 day(s) Active EpiPen 0.3 mg/0.3ml Injection once as directed Sep, 1 dose Not-Taking Nicoderm CQ 21 MG/24HR Transdermal Once a day 1 patch to skin 24h Apr, May, 30 day(s) Active RESULTS Name Result Date Reference Range Xray : Chest 2 View (IN HOUSE) 2017-04-21 PROCEDURES Procedure Date Ordered Result Body Site X-RAY EXAM CHEST 2 VIEWS Apr 21, 2017 INSTRUCTIONS MEDICATIONS ADMINISTERED No Known Medications [...] suicide ideat and attempts. [facility] [place], [place] last around 2006 Hospitalization History left foot swollen, stepped in [facility] 05/02/17
--- OUTSIDE RECORDS SUMMARY | 2017-12-24 02:49 | XMS REPORT ---
Author Author JUAN J JONES Organization [employer] Address Unknown Phone Unavailable Care Team Providers Care Personal Security Specialist Name Role Phone JUAN J JONES CP Unavailable Allergies, Adverse Reactions, Alerts Substance Reaction Event Type Penicillin V Potassium anaphylaxis Drug Allergy Keflex anaphylaxis Drug Allergy Aspirin hives Drug Allergy Problems Problem Type Condition Code Onset Dates Condition Status Problem Encounter for chronic pain management G89.29 Active Problem COPD (chronic obstructive pulmonary disease) J44.9 Active Problem History of amphetamine dependence/abuse F15.21 Active Problem Left-sided chest wall pain R07.89 Active Problem Chronic pain G89.29 Active Problem Seasonal allergic rhinitis due to other allergic trigger J30.89 Active Problem Panic disorder with agoraphobia F40.01 Active Problem Degenerative joint disease M19.90 Active Problem Psychosis F29 Active Problem Bipolar disease, chronic F31.9 Active Assessment Seasonal allergic rhinitis due to other allergic trigger J30.89 Active Assessment Acute non-recurrent pansinusitis J01.40 Active Assessment Bronchitis J40 Active Problem Nondependent amphetamine or related acting sympathomimetic abuse, unspecified 305.70 Active Medications Medication Code System Code Instructions Start Date End Date Status Dosage Ventolin HFA [facility] [address]-87 90 mcg/actuation Apr 08, 2013 inhale 2 puff by Inhalation route as needed every 4 hours for breathing Procedures Procedure Coding System Code Date MEASURE BLOOD OXYGEN LEVEL CPT-4 61701 Feb 19, 2016 ALBUTEROL INHAL UNIT DOSE 1 MG CPT-4 J7613 Feb 19, 2016 Office Visit, Est Pt., Level 3 CPT-4 39893 Feb 19, 2016 CHEST X-RAY CPT-4 96770 Feb 19, 2016 Vital Signs Date/Time: Feb 19, 2016 Cardiac Monitoring Heart Rate 108 bpm Weight 211 lbs Height 63 in BMI 37.37 Index Oximetry 91 % Blood Pressure Diastolic 70 mmHg Blood Pressure Systolic 116 mmHg Results Name Result Date Reference Range Unit Abnormality Flag ALBUTEROL UNIT DOSE FORM INHALED Summary Purpose [employer] Submission
--- OUTSIDE RECORDS SUMMARY | 2017-12-24 02:50 | XMS REPORT ---
Author Author KYLE HENDRIX [facility] Address [address] [place] [address] Care Team Providers Care Product Transfer Pumper Name Role Phone KYLE HENDRIX Unavailable PROBLEMS Type Condition ICD9-CM Code CLB61-CY Code Onset Dates Condition Status SNOMED Code Problem Psychosis, unspecified psychosis type F29 Active 47765413 Problem Lumbago with sciatica, left side M54.42 Active 743231664 Problem Personality disorder F60.9 Active 98364724 Problem Right sciatic nerve pain M54.31 Active 31500514 Problem Bipolar disease, chronic F31.9 Active 97204168 Problem Depressive disorder, not elsewhere classified F32.9 Active 14862195 Problem Other chronic pain G89.29 Active 34073200 Problem Lumbago with sciatica, right side M54.41 Active 781847597812095 Problem Morbid (severe) obesity due to excess calories E66.01 Active 92905052190061 Problem Body mass index (BMI) of 40.0-44.9 in adult Z68.41 Active 150140356 Problem Degenerative joint disease M19.90 Active 888119856 Problem Chronic pain G89.29 Active 67517959 Problem COPD (chronic obstructive pulmonary disease) J44.9 Active 04586297 Problem Panic disorder with agoraphobia F40.01 Active 55491775 Problem Cigarette nicotine dependence without complication F17.210 Active 20806980 Problem Xanax use disorder, moderate F13.20 Active 136869847 Problem Acquired hypothyroidism E03.9 Active 301670429 Problem Methamphetamine use disorder, severe, 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 Active 36886771 Problem Pre-diabetes R73.03 Active 152741588 Problem Opioid use disorder, moderate, dependence F11.20 Active 43031224 ALLERGIES Substance Reaction Event Type Date Status Tramadol HCl nausea and vomiting Drug Allergy Jan, Active Penicillin V Potassium anaphylaxis Drug Allergy Jan, Active Keflex anaphylaxis Drug Allergy Jan, Active Ibuprofen Unknown Drug Allergy Jan, Active Aspirin hives Drug Allergy Jan, Active ENCOUNTERS Encounter Location Date Diagnosis [facility] [address] [address] Sep, [facility] [id number] [address] Sep, [facility] [id number] [place] [address] 55701- 2457 August, [facility] [id number] [place] [address]111- 5979 August, Depressive disorder, not elsewhere classified F32.9 and Psychosis, unspecified psychosis type F29 [facility] [id number] [place] [address] 13703- 7428 August, [facility] [id number] [place] [address] 89620- 3238 August, Lumbago with sciatica, right side M54.41 and Other chronic pain G89.29 [facility] [id number] [place] [address]29 -7937 Jul, Right sciatic nerve pain M54.31 [facility] [id number] [place] [address] 18630- 2394 Jul, Acquired hypothyroidism E03.9 [facility] [id number] [place] [address] 05187- 2775 Jul, Depressive disorder, not elsewhere classified F32.9 and Psychosis, unspecified psychosis type F29 [facility] [address] [place] [address] 86218- 4339 Jul, Acquired hypothyroidism E03.9 ; Lumbago with sciatica, right side M54.41 and Lumbar radiculopathy, acute M54.16 [facility] [address] [address] Jul, Methamphetamine use disorder, severe, 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 ; Psychosis, unspecified psychosis type F29 ; Personality disorder F60.9 ; Opioid use disorder, moderate, dependence F11.20 ; Xanax use disorder, moderate F13.20 and BMI 40.0-44.9, adult Z68.41 [place] [id number] [place] [address] 81044- 1586 Jun, Methamphetamine use disorder, severe, 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 ; Psychosis, unspecified psychosis type F29 ; Personality disorder F60.9 ; Opioid use disorder, moderate, dependence F11.20 and Xanax use disorder, moderate F13.20 [place] [id number] [place] [address] 28250- 2655 Jun, Depressive disorder, not elsewhere classified F32.9 and Psychosis, unspecified psychosis type F29 [place] [id number] [place] [address] 73259- 1395 Jun, Lumbar radiculopathy, acute M54.[address] [address]23- [address]64 Jun, Lumbar radiculopathy, acute M54.16 ; Strain of abdominal wall, initial encounter S39.011A and BMI 40.0-44.9, adult Z68.41 [place] [id number] [place] [address] 40881- 1713 Jun, [place] [id number] [place] [address] 23261- 8593 May, [place] [address] [address]60- 3349 May, Methamphetamine use disorder, severe, 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 ; Psychosis, unspecified psychosis type F29 ; Personality disorder F60.9 ; Opioid use disorder, moderate, dependence F11.20 and Xanax use disorder, moderate F13.20 [place] [id number] [place] [address] 78687- 8128 May, [place] [id number] [place] [address] 57311- 4169 May, [facility] [id number] [place] [address] 86940- 7354 May, Lumbago with sciatica, left side M54.42 ; Lumbago with sciatica, right side M54.41 ; Other chronic pain G89.29 ; Weight gain R63.5 ; Acquired hypothyroidism E03.9 and BMI 40.0-44.9, adult Z68.41 [place] [address] 445447- 4155 Apr, Cigarette nicotine dependence without complication F17.[address] 905630- 7535 Apr, Acute bilateral low back pain without sciatica M54.5 [place] [address] 64562- 2701 Apr, Methamphetamine use disorder, severe, 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 ; Psychosis, unspecified psychosis type F29 ; Personality disorder F60.9 ; Opioid use disorder, moderate, dependence F11.20 and Xanax use disorder, moderate F13.20 [facility] [id number] [place] [address] 43279 -8989 Apr, Wheezing R06.2 and Bronchitis J40 [id number] [place] [address] 04587- 1924 Apr, Bronchitis J40 ; Cigarette nicotine dependence without complication F17.210 and Bipolar disease, chronic F31.9 [facility] [id number] [place] [address] 38183- 4483 Mar, Acquired hypothyroidism E03.9 [place] [address] 92294- 4384 Mar, Acquired hypothyroidism E03.9 [facility] [id number] [place] [address] 57179- 0571 Mar, Orthostatic hypotension I95.1 and Non-intractable vomiting with nausea, unspecified vomiting type R11.2 [place] [id number] [place] [address] 77702- 9140 14 Mar, 2017 Strain of lumbar region, initial encounter S39.012A [place] [id number] [place] [address] 28017- 5232 Mar, [facility] [address] [address] Mar, Bronchitis J40 [address] [address]47- 2537 05 Mar, 2017 Degenerative joint disease M19.90 ; Elevated LFTs R79.89 ; Adenopathy R59.1 ; Drug use F19.90 ; Pre-diabetes R73.03 and COPD (chronic obstructive pulmonary disease) J44.9 [facility] [address] [address]14 30 Feb, 2017 Left hand pain M79.642 and Contusion of left hand, initial encounter S60.222A [address] [address]29- 2347 Feb, Body aches R52 and Flu-like symptoms R68.89 [place] [id number] [place] [address] 43712- 6979 Jan, [address] [address]66- 3587 Jan, Bipolar disease, chronic F31.9 ; Acquired hypothyroidism E03.9 and Encounter for immunization Z23 [facility] [place] [id number] [place] [address] 86399 -7984 05 Dec, 2016 Crushing injury of left wrist and hand, initial encounter S67.42XA [place] [id number] [place] [address] 51183- 1627 Sep, [address] 47035- 4327 Sep, Bipolar disease, chronic F31.9 ; Panic disorder with agoraphobia F40.01 and Proteinuria, unspecified type R80.9 [place] [address] 10865- 5461 August, [place] [address] 32823- 0621 August, Degenerative joint disease M19.90 ; Left-sided chest wall pain R07.89 ; Bipolar disease, chronic F31.9 ; Type 2 diabetes mellitus without complication, without long-term current use of insulin E11.9 ; Acquired hypothyroidism E03.9 and Acute cystitis without hematuria N30.00 [place] [address] 02615- 2618 Mar, [place] [address] 38400- 7280 Feb, [facility] [place] [address] 12[address] -6785 Feb, Right hand pain M79.641 [facility] [place] [address] 89490 -3653 Feb, Bronchitis J40 ; Acute non-recurrent pansinusitis J01.40 and Seasonal allergic rhinitis due to other allergic trigger J30.[address] 55991- 3304 Dec, [facility] [place] [address] 89690 -7180 Mar, Left-sided chest wall pain R07.89 and Chronic pain G89.29 [place] [address] 39379- 7354 Jul, [place] [address] 56110- 0741 Jul, [place] [address] 16345- 5988 May, [facility] [place] [facility] [address] [id number] [place] [address] May, [facility] [place] [facility] [address] [id number] [place] [address]- 0133 Apr, [facility] [place] [facility] [address] [id number] [place] [address]- 5840 Apr, [facility] [place] [facility] [address] [id number] [place] [address]- 7391 Mar, [facility] [place] [facility] [address] [id number] [place] [address] Mar, [facility] [place] [facility] [address] [id number] [place] [address]- 0476 Feb, [facility] [place] [facility] [address] [id number] [place] [address]- 0844 Feb, [facility] [place] [facility] [address] [id number] [place] [address]- 7830 Jan, [facility] [place] [facility] [address] [id number] [place] [address]- 5120 Jan, [facility] [place] [facility] [address] [id number] [place] [address]- 5881 Jan, [facility] [place] [facility] [address] [id number] [place] [address]- 5709 Jan, [facility] [place] [facility] [address] [id number], [place] [address]- 0044 Jan, [facility] [place] [facility] [address] [id number] [place] [address]- 4413 Jan, [facility] [place] [facility] [address] [id number] [place] [address]- 6043 Dec, [facility] [place] [facility] [address] [id number] [place] [address]- 7921 Dec, [facility] [place] [facility] [address] [id number] [place] [address]- 1109 19 Dec, 2013 [facility] [place] [facility] [address] [id number] [place] [address]- 6551 19 Dec, 2013 [facility] [place] [facility] [address] [id number] [place] [address]- 7200 18 Dec, 2013 [facility] [place] [facility] [address] [id number] [place] [address]- 1708 18 Dec, 2013 [facility] [place] [facility] [address] [id number] [place] [address]- 7025 16 Dec, 2013 [facility] [place] [facility] [address] [id number] [place] [address]- 0134 16 Dec, 2013 [facility] [place] [facility] [address] [id number] [place] [address]- 1851 17 Sep, 2013 [facility] [place] [facility] [address] [id number] [place] [address]- 8034 17 Sep, 2013 [facility] [place] [facility] [address] [id number] [place] [address]- 5256 15 Jul, 2013 [facility] [place] [facility] [address] [id number] [place] [address]- 5609 15 Jul, 2013 [facility] [place] [facility] [address] [id number] [place] [address]- 2869 10 Jul, 2013 [facility] [place] [facility] [address] [id number] [place] [address]- 9194 10 Jul, 2013 [facility] [place] [facility] [address] [id number], [place] [address]- 8932 03 Jul, 2013 [facility] [place] [facility] [address] [id number] [place] [address]- 4223 03 Jul, 2013 [facility] [place] [facility] [address] [id number] [place] [address]- 0059 03 Jul, 2013 [facility] [place] [facility] [address] [id number] [place] [address]- 9891 Jul, [facility] [place] [facility] [address] [id number] [place] [address]- 9657 Jun, [facility] [place] [facility] [address] [id number] [place] [address]- 4319 Jun, [facility] [place] [facility] [address] [id number] [place] [address]- 2153 May, [facility] [place] [facility] [address] [id number] [place] [address]- 3370 May, [facility] [place] [facility] [address] [id number] [place] [address]- 5278 May, [facility] [place] [facility] [address] [id number] [place] [address]- 9193 May, [facility] [place] [facility] [address] [id number] [place] [address]- 8520 Apr, [facility] [place] [facility] [address] [id number] [place] [address]- 3477 Apr, [facility] [place] [facility] [address] [id number] [place] [address]- 0047 Mar, [facility] [place] [facility] [address] [id number] [place] [address]- 7842 Mar, [facility] [place] [facility] [address] [facility] [id number] [place] [address]- 4235 Feb, [facility] [place] [facility] [address] [id number], [place] [address]- 5580 Feb, [facility] [place] [facility] [address] [id number] [place] [address]- 5109 Feb, [facility] [place] [facility] [address] [id number] [place] [address]- 8391 Feb, [facility] [place] [facility] [address] [id number] [place] [address]- 8246 Jan, [facility] [place] [facility] [address] [id number] [place] [address]- 5167 Jan, [facility] [address] [id number] [place] [address]- 8076 Jan, [facility] [place] [facility] [address] [id number] [place] [address]- 7237 Jan, [facility] [place] [facility] [address] [id number] [place] [address]- 5429 Jan, [facility] [place] [facility] [address] [id number] [place] [address]- 4042 Dec, [facility] [place] [facility] [address] [id number] [place] [address]- 4880 Dec, [facility] [place] [facility] [address] [id number] [place] [address]- 2154 Nov, [facility] [place] [facility] [address] [id number] [place] [address]- 2038 Sep, [facility] [place] [facility] [address] [id number] [place] [address]- 1709 August, [facility] [place] [facility] [address] [id number] [place] [address]- 8868 August, [facility] [place] [facility] [address] [id number] [place] [address]- 0690 Jul, [facility] [place] [facility] [address] [id number], [place] [address]- 5915 Jul, [facility] [place] [facility] [address] [id number], [place] [address]- 1597 Jul, [facility] [place] [facility] [address] [id number] [place] [address]- 8853 Jul, [facility] [place] [facility] [address] [id number] [place] [address]- 0012 Jul, [facility] [place] [facility] [address] [id number] [place] 8632 Jul, [facility] [place] [facility] [address] [id number] [place] [address]- 8406 Jul, [facility] [address] [id number] [place] [address]- 0623 Jun, [facility] [place] [facility] [address] [id number] [place] [address]- 3696 Jun, [facility] [address] [id number] [place] [address]- 0021 May, [facility] [address] [id number] [place] [address]- 9805 Apr, [facility] [address] [id number] [place] [address]- 2925 Apr, [facility] [address] [id number] [place] [address]- 5193 Mar, [facility] [address] [id number] [place] [address]- 6455 Mar, [facility] [address] [id number] [place] [address]- 3502 Mar, [facility] [address] [id number] [place] [address]- 9765 Feb, [facility] [address] [id number] [place] [address]- 9756 Feb, [facility] [address] [id number] [place] [address]- 9873 Feb, [facility] [address] [id number] [place] [address]- 5170 Feb, [facility] [place] [facility] [address] [id number] [place] [address]- 8961 Feb, [facility] [place] [facility] [address] [id number] [place] [address]- 6236 Feb, [facility] [place] [facility] [address] [id number] [place] [address]- 9834 Feb, [facility] [place] [facility] [address] [id number] [place] [address]- 1617 16 Feb, 2012 [facility] [place] [facility] [address] [id number] [place] [address]- 7812 14 Feb, 2012 [facility] [place] [facility] [address] [id number] [place] [address]- 5595 08 Feb, 2012 [facility] [place] [facility] [address] [id number] [place] [address]- 9683 08 Feb, 2012 [facility] [place] [facility] [address] [id number] [place] [address]- 2164 27 Dec, 2011 [facility] [place] [facility] [address] [id number] [place] [address]- 8738 Dec, [facility] [place] [facility] [address] [id number] [place] [address]- 5404 Nov, [facility] [place] [facility] [address] [id number] [place] [address]- 3961 Nov, [facility] [place] [facility] [address] [id number] [place] [address]- 5414 Oct, [facility] [place] [facility] [address] [id number] [place] [address]- 4452 Oct, [facility] [place] [facility] [address] [id number] [place] [address]- 4898 Sep, [facility] [place] [facility] [address] [id number], [place] [address]- 0556 May, [facility] [place] [facility] [address] [id number] [place] [address]- 8693 15 May, 2011 [facility] [place] [facility] [address] [id number] [place] [address]- 9195 May, [facility] [place] [facility] [address] [id number] [place] [address]- 3606 Apr, [facility] [place] [facility] [address] [id number] [place] [address]- 4585 06 Mar, 2011 [facility] [place] [facility] [address] [id number] [place] [address]- 0791 Mar, [facility] [place] [facility] [address] [id number] [place] [address]- 2165 Feb, [facility] [place] [facility] [address] [id number] [place] [address]- 6080 Feb, [facility] [place] [facility] [address] [id number] [place] [address]- 8877 Feb, [facility] [place] [facility] [address] [id number] [place] [address]- 3929 Jan, [facility] [place] [facility] [address] [id number] [place] [address]- 3596 Jan, [facility] [place] [facility] [address] [facility] [id number] [place] [address]- 3970 Dec, [facility] [place] [facility] [address] [id number] [place] [address]- 3182 Mar, [facility] [place] [facility] [address] [id number] [place] [address]- 7638 Feb, [facility] [place] [facility] [address] [facility] [id number] [place] [address]- 7743 Feb, [facility] [place] [facility] [address] [id number] [place] [address]- 0450 Feb, [facility] [place] [facility] [address] [facility] [id number], [place] [address] 20 Jan, 2009 [facility] [place] [facility] [address] [id number] [place] [address] 16 Dec, 2008 [facility] [place] [facility] [address] [facility] [id number] [place] [address] 10 Nov, 2008 [facility] [place] [facility] [address] [id number], [place] [address] Sep, [facility] [address] [facility] [id number] [place] [address] August, [facility] [address] [facility] [id number], [place] [address] May, [facility] [address] [facility] [id number], [place] [address] Mar, IMMUNIZATIONS Vaccine Route Administration Date Status FLUARIX QUAD (3 AND UP) 2016 IM Intramuscular Jan 25, 2017 Administered SOCIAL HISTORY Never Assessed REASON FOR VISIT Jade Mina [facility] f/u---DBennettRN, pelvic pain x 3 weeks, sinus congestion , would like ears checked PLAN OF CARE Activity Details Follow Up 4 Weeks Reason:DMT2 VITAL SIGNS Height 63 in 2017-01-25 Weight 205 lbs 2017-01-25 Temperature 98.3 degrees Fahrenheit 2017-01-25 Heart Rate 80 bpm 2017-01-25 Respiratory Rate 20 2017-01-25 BMI 36.31 kg/m2 2017-01-25 Blood pressure systolic 112 mmHg 2017-01-25 Blood pressure diastolic 80 mmHg 2017-01-25 MEDICATIONS Medication Instructions Dosage Frequency Start Date End Date Duration Status EpiPen 0.3 mg/0.3ml Injection once as directed Sep, 1 dose Active Fluoxetine 40 mg Orally Once a day 1 capsule in the morning 24h August, 90 days Active Synthroid 50 mcg Orally Once a day 1 tablet on an empty stomach in the morning 24h August, 90 days Active MetFORMIN HCl ER 500 mg Orally twice a day 1 tablet with evening meal 12h August, 90 days Active Lisinopril 5 mg Orally Once a day 1 tablet 24h Sep, 90 days Active RESULTS No Results PROCEDURES Procedure Date Ordered Result Body Site FLUARIX QUAD (3 & UP)-[id number]-2014Jan 25, 2017 SINGLE IMMUNIZATION ADMIN Jan 25, 2017 INSTRUCTIONS MEDICATIONS ADMINISTERED No Known Medications [...] harming, suicide ideat and attempts. [facility] [facility]
--- OUTSIDE RECORDS SUMMARY | 2017-12-24 02:51 | XMS REPORT ---
Author Author JUAN J JONES Organization [facility] Address [address] [place] [address] Care Team Providers Care Outside Sales Account Executive Name Role Phone JUAN J JONES Unavailable PROBLEMS Type Condition ICD9-CM Code BXX33-QO Code Onset Dates Condition Status SNOMED Code Problem Psychosis, unspecified psychosis type F29 Active 15584164 Problem Lumbago with sciatica, left side M54.42 Active 047072262 Problem Personality disorder F60.9 Active 84872131 Problem Right sciatic nerve pain M54.31 Active 51723221 Problem Bipolar disease, chronic F31.9 Active 72582917 Problem Depressive disorder, not elsewhere classified F32.9 Active 19859074 Problem Other chronic pain G89.29 Active 67140371 Problem Lumbago with sciatica, right side M54.41 Active 773374425001293 Problem Morbid (severe) obesity due to excess calories E66.01 Active 13094326411221 Problem Body mass index (BMI) of 40.0-44.9 in adult Z68.41 Active 250342957 Problem Degenerative joint disease M19.90 Active 953173116 Problem Chronic pain G89.29 Active 80406080 Problem COPD (chronic obstructive pulmonary disease) J44.9 Active 66323269 Problem Panic disorder with agoraphobia F40.01 Active 31188075 Problem Cigarette nicotine dependence without complication F17.210 Active 26469623 Problem Xanax use disorder, moderate F13.20 Active 170411836 Problem Acquired hypothyroidism E03.9 Active 624110745 Problem Methamphetamine use disorder, severe, 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 Active 94462644 Problem Pre-diabetes R73.03 Active 127129834 Problem Opioid use disorder, moderate, dependence F11.20 Active 66877055 ALLERGIES Substance Reaction Event Type Date Status Tramadol HCl nausea and vomiting Drug Allergy Mar, Active Penicillin V Potassium anaphylaxis Drug Allergy Mar, Active Keflex anaphylaxis Drug Allergy Mar, Active Ibuprofen Unknown Drug Allergy Mar, Active Aspirin hives Drug Allergy Mar, Active ENCOUNTERS Encounter Location Date Diagnosis [facility] [address] [address] Sep, [facility] [id number] [address] Sep, [facility] [id number] [place] [address] 5[address] August, [facility] [id number] [place] [address]96- 6261 August, Depressive disorder, not elsewhere classified F32.9 and Psychosis, unspecified psychosis type F29 [facility] [id number] [place] [address]48- 9471 August, [facility] [id number] [place] [address] 18760- 5445 August, Lumbago with sciatica, right side M54.41 and Other chronic pain G89.29 [facility] [id number] [address] Jul, Right sciatic nerve pain M54.31 [facility] [id number] [place] [address]14- 2462 Jul, Acquired hypothyroidism E03.9 [facility] [address] [address] Jul, Depressive disorder, not elsewhere classified F32.9 and Psychosis, unspecified psychosis type F29 [facility] [address] [address] Jul, Acquired hypothyroidism E03.9 ; Lumbago with sciatica, right side M54.41 and Lumbar radiculopathy, acute M54.16 [facility] [address] [address] Jul, Methamphetamine use disorder, severe, 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 ; Psychosis, unspecified psychosis type F29 ; Personality disorder F60.9 ; Opioid use disorder, moderate, dependence F11.20 ; Xanax use disorder, moderate F13.20 and BMI 40.0-44.9, adult Z68.41 [place] [id number] [place] [address] 7[address]37- 0628 Jun, Methamphetamine use disorder, severe, 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 ; Psychosis, unspecified psychosis type F29 ; Personality disorder F60.9 ; Opioid use disorder, moderate, dependence F11.20 and Xanax use disorder, moderate F13.20 [place] [id number] [place] [address] 61404- 5033 Jun, Depressive disorder, not elsewhere classified F32.9 and Psychosis, unspecified psychosis type F29 [place] [id number] [place] [address] 01285- 5188 Jun, Lumbar radiculopathy, acute M54.16 [place] [address] [address] 1117 Jun, Lumbar radiculopathy, acute M54.16 ; Strain of abdominal wall, initial encounter S39.011A and BMI 40.0-44.9, adult Z68.41 [place] [id number] [place] [address] 13752- 7583 Jun, [place] [id number] [place] [address] 17342- 4302 May, [place] [id number] [place] [address] 30664- 3917 May, Methamphetamine use disorder, severe, 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 ; Psychosis, unspecified psychosis type F29 ; Personality disorder F60.9 ; Opioid use disorder, moderate, dependence F11.20 and Xanax use disorder, moderate F13.20 [place] [id number] [place] [address] 46590- 2168 May, [place] [id number] [place] [address] 15724- 2746 May, [facility] [address] [address] May, Lumbago with sciatica, left side M54.42 ; Lumbago with sciatica, right side M54.41 ; Other chronic pain G89.29 ; Weight gain R63.5 ; Acquired hypothyroidism E03.9 and BMI 40.0-44.9, adult Z68.41 [place] [address] 915551- 0382 Apr, Cigarette nicotine dependence without complication F17.[address] [address]- 300[address] Apr, Acute bilateral low back pain without sciatica M54.5 [place] [address] [address]- 0317 Apr, Methamphetamine use disorder, severe, 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 ; Psychosis, unspecified psychosis type F29 ; Personality disorder F60.9 ; Opioid use disorder, moderate, dependence F11.20 and Xanax use disorder, moderate F13.20 [facility] [address] [address] Apr, Wheezing R06.2 and Bronchitis J40 [address] [id number] [place] [address] 96181- 4497 Apr, Bronchitis J40 ; Cigarette nicotine dependence without complication F17.210 and Bipolar disease, chronic F31.9 [facility] [address] [address]- [address] Mar, Acquired hypothyroidism E03.9 [place] [address] 81627- 6016 Mar, Acquired hypothyroidism E03.9 [facility] [address] [address]- [address] Mar, Orthostatic hypotension I95.1 and Non-intractable vomiting with nausea, unspecified vomiting type R11.2 [place] [id number] [place] [address] 47515- 6756 14 Mar, 2017 Strain of lumbar region, initial encounter S39.012A [place] [id number] [place] [address] 38732- 8358 11 Mar, 2017 [facility] [address] [address] Mar, Bronchitis J40 [address] [address]42- 2377 05 Mar, 2017 Degenerative joint disease M19.90 ; Elevated LFTs R79.89 ; Adenopathy R59.1 ; Drug use F19.90 ; Pre-diabetes R73.03 and COPD (chronic obstructive pulmonary disease) J44.9 [facility] [address] [address] 30 Feb, 2017 Left hand pain M79.642 and Contusion of left hand, initial encounter S60.222A [address] [address]- 7721 Feb, Body aches R52 and Flu-like symptoms R68.89 [id number] [place] [address] 85897- 5532 Jan, [address] [address]- 5655 Jan, Bipolar disease, chronic F31.9 ; Acquired hypothyroidism E03.9 and Encounter for immunization Z23 [facility] [id number] [place] [address] 24520 -9859 05 Dec, 2016 Crushing injury of left wrist and hand, initial encounter S67.42XA [place] [id number] [place] [address] 22156- 8425 Sep, [address] [address]- [address] Sep, Bipolar disease, chronic F31.9 ; Panic disorder with agoraphobia F40.01 and Proteinuria, unspecified type R80.[address] 89940- 2500 August, [place] [address] [address]- 2865 August, Degenerative joint disease M19.90 ; Left-sided chest wall pain R07.89 ; Bipolar disease, chronic F31.9 ; Type 2 diabetes mellitus without complication, without long-term current use of insulin E11.9 ; Acquired hypothyroidism E03.9 and Acute cystitis without hematuria N30.[address] 7[address]- 1089 Mar, [address] 46567- 1681 Feb, [facility] [address] [address] Feb, Right hand pain M79.641 [facility] [address] 17[address]01 Feb, Bronchitis J40 ; Acute non-recurrent pansinusitis J01.40 and Seasonal allergic rhinitis due to other allergic trigger J30.[address] [address]60- 0857 Dec, [facility] [address] [address] Mar, Left-sided chest wall pain R07.89 and Chronic pain G89.[address] [address]- 8684 Jul, [address] [address]- 2535 Jul, [address] 08778- 2399 May, [facility] [place] [facility] [address] [id number] [place] [address]- 8142 May, [facility] [place] [facility] [address] [id number] [place] [address]- 5846 Apr, [facility] [place] [facility] [address] [id number] [place] [address]- 5597 Apr, [facility] [place] [facility] [address] [id number] [place] [address]- 0642 Mar, [facility] [place] [facility] [address] [id number] [place] [address]- 9001 Mar, [facility] [place] [facility] [address] [id number] [place] [address]- 4836 Feb, [facility] [place] [facility] [address] [id number] [place] [address]- 0034 Feb, [facility] [place] [facility] [address] [id number] [address]- 1465 Jan, [facility] [place] [facility] [address] [id number] [place] [address]- 1471 Jan, [facility] [place] [facility] [address] [id number] [place] [address]- 8331 Jan, [facility] [place] [facility] [address] [id number] [address]- 7443 Jan, [facility] [place] [facility] [address] [id number] [address]- 9184 Jan, [facility] [place] [facility] [address] [id number] [place] [address]- 2072 15 Jan, 2014 [facility] [place] [facility] [address] [id number] [address]- 6615 Dec, [facility] [place] [facility] [address] [id number] [place] [address]- 8346 Dec, [facility] [place] [facility] [address] [id number] [place] [address]- 7809 19 Dec, 2013 [facility] [place] [facility] [address] [id number] [place] [address]- 5316 19 Dec, 2013 [facility] [place] [facility] [address] [id number] [place] [address]- 4736 18 Dec, 2013 [facility] [place] [facility] [address] [id number] [place] [address]- 2363 18 Dec, 2013 [facility] [place] [facility] [address] [id number] [place] [address]- 7700 16 Dec, 2013 [facility] [place] [facility] [address] [id number] [place] [address]- 0062 16 Dec, 2013 [facility] [place] [facility] [address] [id number] [place] [address]- 5987 17 Sep, 2013 [facility] [place] [facility] [address] [id number] [place] [address]- 1369 17 Sep, 2013 [facility] [place] [facility] [address] [id number] [place] [address]- 0045 15 Jul, 2013 [facility] [place] [facility] [address] [id number] [place] [address]- 8947 15 Jul, 2013 [facility] [place] [facility] [address] [id number] [place] [address]- 8031 10 Jul, 2013 [facility] [place] [facility] [address] [id number] [place] [address]- 2303 10 Jul, 2013 [facility] [place] [facility] [address] [id number] [place] [address]- 2435 Jul, [facility] [place] [facility] [address] [id number] [place] [address]- 5430 Jul, [facility] [place] [facility] [address] [id number] [place] [address]- 7299 Jul, [facility] [place] [facility] [address] [id number] [place] [address]- 5517 Jul, [facility] [place] [facility] [address] [id number] [place] [address]- 5075 Jun, [facility] [place] [facility] [address] [id number] [place] [address]- 8015 Jun, [facility] [place] [facility] [address] [id number] [place] [address]- 0713 May, [facility] [place] [facility] [address] [id number] [place] [address]- 1465 May, [facility] [place] [facility] [address] [id number] [place] [address]- 5110 May, [facility] [place] [facility] [address] [id number] [place] [address]- 0642 May, [facility] [place] [facility] [address] [id number] [place] [address]- 4194 Apr, [facility] [place] [facility] [address] [id number] [place] [address]- 6686 Apr, [facility] [place] [facility] [address] [id number] [place] [address]- 7416 Mar, [facility] [place] [facility] [address] [id number] [place] [address]- 3910 Mar, [facility] [place] [facility] [address] [id number] [address]- 3267 Feb, [facility] [place] [facility] [address] [id number] [address]- 0804 Feb, [facility] [place] [facility] [address] [id number] [place] [address]- 5336 Feb, [facility] [place] [facility] [address] [id number] [place] [address]- 5576 Feb, [facility] [place] [facility] [address] [facility] [id number] 7063 Jan, [facility] [place] [facility] [address] [id number] [address]- 8582 Jan, [facility] [address] [id number] [place] [address]- 9869 Jan, [facility] [address] [id number] [place] [address]- 0495 Jan, [facility] [address] [facility] [id number] [place] [address]- 2124 Jan, [facility] [address] [id number] [place] [address]- 5184 Dec, [facility] [address] [id number] [place] [address]- 2355 Dec, [facility] [address] [id number] [place] [address]- 4187 Nov, [facility] [address] [address]- 9970 Sep, [facility] [address] [id number] [place] [address]- 9018 August, [facility] [id number] [address]- 0620 August, [facility] [id number] [place] [address]- 4612 Jul, [facility] [address] [id number] [place] [address]- 7479 Jul, [facility] [place] [facility] [address] [id number] [address]- 9060 Jul, [facility] [place] [facility] [address] [id number] [place] [address]- 7034 Jul, [facility] [place] [facility] [address] [facility] [id number] [place] [address]- 8689 Jul, [facility] [place] [facility] [id number] [address]- 9398 Jul, [facility] [place] [facility] [address] [id number] [place] [address]- 9807 Jul, [facility] [place] [facility] [address] [id number] [place] [address]- 1226 Jun, [facility] [place] [facility] [address] [id number] [place] [address] 2546 Jun, [facility] [place] [facility] [address] [id number] [place] [address]- 8086 May, [facility] [place] [facility] [address] [id number] [place] [address] 2548 Apr, [facility] [place] [facility] [address] [id number] [place] [address]- 1467 Apr, [facility] [place] [facility] [address] [id number] [place] [address]- 9570 Mar, [facility] [place] [facility] [address] [id number] [place] [address]- 3079 Mar, [facility] [place] [facility] [address] [id number] [place] [address]- 0696 Mar, [facility] [place] [facility] [address] [id number] [place] [address]- 1725 Feb, [facility] [place] [facility] [address] [id number] [place] [address]- 9185 Feb, [facility] [place] [facility] [address] [id number] [place] [address]- 254 Feb, [facility] [place] [facility] [address] [id number] [place] [address] 2541 Feb, [facility] [place] [facility] [address] [id number] [place] [address] 2546 Feb, [facility] [place] [facility] [address] [id number] [place] [address]- 254 Feb, [facility] [place] [facility] [address] [id number] [place] [address]- 1533 16 Feb, 2012 [facility] [place] [facility] [address] [id number] [place] [address]- 6556 16 Feb, 2012 [facility] [place] [facility] [address] [id number] [place] [address]- 8187 14 Feb, 2012 [facility] [place] [facility] [address] [id number] [place] [address]- 3858 Feb, [facility] [place] [facility] [address] [id number] [place] [address]- 2081 08 Feb, 2012 [facility] [place] [facility] [address] [id number] [place] [address] 27 Dec, 2011 [facility] [place] [facility] [address] [id number] [place] [address]- 4576 Dec, [facility] [place] [facility] [address] [id number] [place] [address]- 0473 Nov, [facility] [place] [facility] [address] [id number] [place] [address]- 5553 Nov, [facility] [place] [facility] [address] [id number] [place] [address]- 7817 Oct, [facility] [place] [facility] [address] [id number] [place] [address]- 3168 Oct, [facility] [place] [facility] [address] [id number] [place] [address]- 8568 Sep, [facility] [place] [facility] [address] [id number] [address]- 1312 May, [facility] [place] [facility] [address] [id number] [place] [address]- 1676 15 May, 2011 [facility] [place] [facility] [address] [id number] [place] [address]- 2466 May, [facility] [place] [facility] [address] [id number] [place] [address] 2546 Apr, [facility] [place] [facility] [address] [id number] [place] [address]- 2546 Mar, [facility] [address] [id number] [place] [address]- 5301 Mar, [facility] [place] [facility] [address] [id number] [place] [address]- 2546 Feb, [facility] [address] [id number] [place] [address]- 0586 Feb, [facility] [place] [facility] [address] [id number] [place] [address]- 6174 Feb, [facility] [place] [facility] [address] [id number] [place] [address]- 0732 Jan, [facility] [place] [facility] [address] [id number] [place] [address]- 7515 Jan, [facility] [place] [facility] [address] [facility] [id number] [place] [address]- 9950 Dec, [facility] [address] [id number] [place] [address]- 1608 Mar, [facility] [place] [facility] [address] [facility] [id number] [place] [address]- 3997 Feb, [facility] [place] [facility] [address] [facility] [id number] [place] [address]- 0378 Feb, [facility] [place] [facility] [address] [id number] [place] [address]- 2542 Feb, [facility] [place] [facility] [address] [id number] [place] [address]- 0799 Jan, [facility] [place] [facility] [address] [id number] [place] [address]- 1880 16 Dec, 2008 [facility] [place] [facility] [address] [facility] [id number] [place] [address]- 2546 10 Nov, 2008 [facility] [place] [facility] [address] [id number] [place] [address]- 3112 Sep, [facility] [address] [facility] [id number] [address]- 8608 August, [facility] [address] [facility] [id number] [address]- 2866 May, [facility] [address] [facility] [id number] [place] [address]- 0396 08 Mar, 2008 IMMUNIZATIONS Vaccine Route Administration Date Status TORADOL (IM) 60 MG/2ML (UP TO 15 MG) IM Intramuscular Mar 16, 2017 Administered SOCIAL HISTORY Never Assessed REASON FOR VISIT Congestion/coughing/vomitting/diarrhea PLAN OF CARE Activity Details Follow Up prn Reason: VITAL SIGNS Height 63 in 2017-03-16 Weight 193.4 lbs 2017-03-16 Temperature 98.0 degrees Fahrenheit 2017-03-16 Heart Rate 84 bpm 2017-03-16 Respiratory Rate 20 2017-03-16 Oximetry 94 % 2017-03-16 BMI 34.26 kg/m2 2017-03-16 Blood pressure systolic 124 mmHg 2017-03-16 Blood pressure diastolic 76 mmHg 2017-03-16 MEDICATIONS Medication Instructions Dosage Frequency Start Date End Date Duration Status Synthroid 50 mcg Orally Once a day 1 tablet on an empty stomach in the morning 24h August, 90 days Active MetFORMIN HCl ER 500 mg Orally twice a day 1 tablet with evening meal 12h August, 90 days Active PredniSONE 20 MG Orally Once a day 2 tablet 24h Mar, Mar, 5 days Active Mobic 15 MG Orally Once a day 1 tablet 24h August, Sep, 30 day(s) Active Fluoxetine 40 mg Orally Once a day 1 capsule in the morning 24h August, 90 days Active Lisinopril 5 mg Orally Once a day 1 tablet 24h Sep, 90 days Active ProAir HFA 108 (90 Base) MCG/ACT Inhalation every 6 hrs 2 puffs as needed 6h Mar, Active Womens One Daily - Active EpiPen 0.3 mg/0.3ml Injection once as directed Sep, 1 dose Not-Taking RESULTS No Results PROCEDURES Procedure Date Ordered Result Body Site NEBULIZER TREATMENT 2017-03-16 N/A NEB/MDI RX INITIAL Mar 16, 2017 TORADOL (IM) 60 MG/2ML (UP TO 15 MG) Mar 16, 2017 MEASURE BLOOD OXYGEN LEVEL Mar 16, 2017 THER/PROPH/DIAG INJ, SC/IM Mar 16, 2017 INSTRUCTIONS MEDICATIONS ADMINISTERED No Known Medications [...] harming, suicide ideat and attempts. Rios Shepherd, [place], [place] last around 2006 Hospitalization History left foot swollen, stepped in [facility] ER 05/02/17
--- OUTSIDE RECORDS SUMMARY | 2017-12-24 02:51 | XMS REPORT ---
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 Active 499790663164371 Problem COPD (chronic obstructive pulmonary disease) J44.9 Active 57854504 Problem Right sciatic nerve pain M54.31 Active 46284262 Problem Bipolar disease, chronic F31.9 Active 46699013 Problem Body mass index (BMI) of 40.0-44.9 in adult Z68.41 Active 101953718 Problem Other chronic pain G89.29 Active 81123830 Problem Depressive disorder, not elsewhere classified F32.9 Active 73262065 Problem Morbid (severe) obesity due to excess calories E66.01 Active 22223116856178 Problem Chronic pain G89.29 Active 85664156 Problem Acquired hypothyroidism E03.9 Active 137157932 Problem Panic disorder with agoraphobia F40.01 Active 41966603 Problem Degenerative joint disease M19.90 Active 882191886 Problem Xanax use disorder, moderate F13.20 Active 581759115 Problem Methamphetamine use disorder, severe, 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 Active 15171422 Problem Pre-diabetes R73.03 Active 649744347 Problem Opioid use disorder, moderate, dependence F11.20 Active 14898118 Problem Cigarette nicotine dependence without complication F17.210 Active 38704410 Problem Psychosis, unspecified psychosis type F29 Active 43356412 ALLERGIES No Information ENCOUNTERS Encounter Location Date Diagnosis [facility] [address] [facility] [id number] [address] Dec, [facility] [id number] [place] [address] 31106 -0014 Sep, 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 [facility] [id number] [place] [address] 45552- 8164 Sep, [facility] [id number] [place] [address] 53512- 9113 Sep, Methamphetamine use disorder, severe, 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 ; Psychosis, unspecified psychosis type F29 ; Personality disorder F60.9 ; Opioid use disorder, moderate, dependence F11.20 ; Xanax use disorder, moderate F13.20 and BMI 40.0-44.9, adult Z68.41 [place] [id number] [place] [address] 59018- 8493 Sep, Depressive disorder, not elsewhere classified F32.9 and Psychosis, unspecified psychosis type F29 [facility] [id number] [place] [address] 11255- 6114 August, [facility] [id number] [place] [address] 93209- 7955 August, Depressive disorder, not elsewhere classified F32.9 and Psychosis, unspecified psychosis type F29 [place] [id number] [place] [address] 38451- 1831 August, [facility] [id number] [place] [address] 08619- 4598 August, Lumbago with sciatica, right side M54.41 and Other chronic pain G89.29 [facility] [id number] [place] [address] 49870 -9755 Jul, Right sciatic nerve pain M54.31 [facility] [id number] [place] [address] 60812- 4992 Jul, Acquired hypothyroidism E03.9 [place] [address] 97239- 9392 Jul, Depressive disorder, not elsewhere classified F32.9 and Psychosis, unspecified psychosis type F29 [place] [address] [place] [address] 39294- 7826 Jul, Acquired hypothyroidism E03.9 ; Lumbago with sciatica, right side M54.41 and Lumbar radiculopathy, acute M54.16 [place] [id number] [place] [address] 21050- 3066 Jul, Methamphetamine use disorder, severe, 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 ; Psychosis, unspecified psychosis type F29 ; Personality disorder F60.9 ; Opioid use disorder, moderate, dependence F11.20 ; Xanax use disorder, moderate F13.20 and BMI 40.0-44.9, adult Z68.41 [place] [address] [place] [address] 99581- 8693 Jun, Methamphetamine use disorder, severe, 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 ; Psychosis, unspecified psychosis type F29 ; Personality disorder F60.9 ; Opioid use disorder, moderate, dependence F11.20 and Xanax use disorder, moderate F13.20 [place] [address] [place] [address] 02335- 2814 Jun, Depressive disorder, not elsewhere classified F32.9 and Psychosis, unspecified psychosis type F29 [place] [address] [place] [address] 44166- 9457 Jun, Lumbar radiculopathy, acute M54.16 [place] [address] [place] [address] 53725- 9969 Jun, Lumbar radiculopathy, acute M54.16 ; Strain of abdominal wall, initial encounter S39.011A and BMI 40.0-44.9, adult Z68.41 [place] [address] [place] [address] 21494- 7223 Jun, [place] [address] [id number] [place] [address] 92700- 9522 May, [place] [address] 56843- 6788 May, Methamphetamine use disorder, severe, 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 ; Psychosis, unspecified psychosis type F29 ; Personality disorder F60.9 ; Opioid use disorder, moderate, dependence F11.20 and Xanax use disorder, moderate F13.20 [place] [address] 09987- 4169 May, [place] [address] 30334- 0354 May, [place] [address] 36604- 4526 May, Lumbago with sciatica, left side M54.42 ; Lumbago with sciatica, right side M54.41 ; Other chronic pain G89.29 ; Weight gain R63.5 ; Acquired hypothyroidism E03.9 and BMI 40.0-44.9, adult Z68.41 [place] [address] 84999- 6996 Apr, Cigarette nicotine dependence without complication F17.210 [place] [address] 56967- 1273 Apr, Acute bilateral low back pain without sciatica M54.5 [place] [id number] [place] [address] 66817- 4604 Apr, Methamphetamine use disorder, severe, 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 ; Psychosis, unspecified psychosis type F29 ; Personality disorder F60.9 ; Opioid use disorder, moderate, dependence F11.20 and Xanax use disorder, moderate F13.20 [facility] [id number] [place] [address] 41875 -2198 Apr, Wheezing R06.2 and Bronchitis J40 [place] [address] 95849- 0057 Apr, Bronchitis J40 ; Cigarette nicotine dependence without complication F17.210 and Bipolar disease, chronic F31.9 [place] [address] 18748- 0227 Mar, Acquired hypothyroidism E03.9 [place] [id number] [place] [address] 18129- 0125 Mar, Acquired hypothyroidism E03.9 [place] [address] 44351- 5911 Mar, Orthostatic hypotension I95.1 and Non-intractable vomiting with nausea, unspecified vomiting type R11.[address] 58051- 0811 Mar, Strain of lumbar region, initial encounter S39.012A [address] 61731- 5180 Mar, [facility] [address] 60114 -2648 Mar, Bronchitis J40 [address] 63155- 2035 Mar, Degenerative joint disease M19.90 ; Elevated LFTs R79.89 ; Adenopathy R59.1 ; Drug use F19.90 ; Pre-diabetes R73.03 and COPD (chronic obstructive pulmonary disease) J44.9 [facility] [id number] [place] [address] 27254 -0455 Feb, Left hand pain M79.642 and Contusion of left hand, initial encounter S60.222A [address] 57433- 9893 07 Feb, 2017 Body aches R52 and Flu-like symptoms R68.89 [place] [id number] [place] [address] 52407- 9940 Jan, [address] [place] [address]- 6731 Jan, Bipolar disease, chronic F31.9 ; Acquired hypothyroidism E03.9 and Encounter for immunization Z23 [facility] [place] [address] 04865 -1185 05 Dec, 2016 Crushing injury of left wrist and hand, initial encounter S67.42XA [address] 05224- 4254 Sep, [place] [address] 98129- 7400 Sep, Bipolar disease, chronic F31.9 ; Panic disorder with agoraphobia F40.01 and Proteinuria, unspecified type R80.9 [place] [address] 77793- 7483 August, [address] 37040- 2755 August, Degenerative joint disease M19.90 ; Left-sided chest wall pain R07.89 ; Bipolar disease, chronic F31.9 ; Type 2 diabetes mellitus without complication, without long-term current use of insulin E11.9 ; Acquired hypothyroidism E03.9 and Acute cystitis without hematuria N30.00 [place] [address] 90017- 9634 Mar, [place] [address] 76508- 6038 Feb, [facility] [address] 77[address] -3883 Feb, Right hand pain M79.641 [facility] [address] 72397 -6278 Feb, Bronchitis J40 ; Acute non-recurrent pansinusitis J01.40 and Seasonal allergic rhinitis due to other allergic trigger J30.[address] 96843- 3013 Dec, [facility] [address] [id number] [place] [address]2476 Mar, Left-sided chest wall pain R07.89 and Chronic pain G89.29 [facility] [address] [id number] [place] [address]- 1595 Jul, [facility] [address] [id number] [place] [address]- 2788 Jul, [facility] [address] [id number] [place] [address]- 7368 May, [facility] [address] [id number] [place] [address], [place] [address]- 9803 May, [facility] [address] [facility] [facility] [id number] [place] [address]- 0852 Apr, [facility] [address] [facility] [address] [facility] [id number] [place] [address]- 6342 Apr, [facility] [address] [facility] [facility] [id number] [place] [address]- 2134 Mar, [facility] [address] [facility] [address] [facility] [id number] [place] [address]- 2890 Mar, [facility] [address] [facility] [address] [facility] [id number], [place] [address]- 3048 Feb, [facility] [address] [facility] [facility] [id number], [place] [address]- 4217 Feb, [facility] [address] [address] [facility] [id number], [place] [address]- 3511 Jan, [facility] [address] [facility] [facility] [id number] [place] [address]- 6273 Jan, [facility] [address] [facility] [address] [facility] [id number], [place] [address]- 7510 Jan, [facility] [address] [facility] [address] [facility] [id number], [place] [address]- 1947 28 Jan, 2014 [facility] [place] [facility] [address] [id number] [place] [address]- 3847 15 Jan, 2014 [facility] [place] [facility] [address] [id number] [place] [address]- 9524 15 Jan, 2014 [facility] [place] [facility] [address] [id number] [place] [address]- 6555 19 Dec, 2013 [facility] [place] [facility] [address] [id number] [place] [address]- 2430 19 Dec, 2013 [facility] [place] [facility] [address] [id number] [place] [address]- 6823 19 Dec, 2013 [facility] [place] [facility] [address] [id number] [place] [address]- 0385 19 Dec, 2013 [facility] [place] [facility] [address] [id number] [place] [address]- 3107 18 Dec, 2013 [facility] [place] [facility] [address] [id number] [place] [address]- 1347 18 Dec, 2013 [facility] [place] [facility] [address] [id number] [place] [address]- 0236 16 Dec, 2013 [facility] [place] [facility] [address] [id number] [place] [address]- 0824 16 Dec, 2013 [facility] [place] [facility] [address] [id number], [place] [address]- 2436 17 Sep, 2013 [facility] [place] [facility] [address] [id number], [place] [address]- 8649 17 Sep, 2013 [facility] [place] [facility] [address] [id number], [place] [address]- 6246 15 Jul, 2013 [facility] [place] [facility] [address] [id number], [place] [address]- 2957 15 Jul, 2013 [facility] [place] [facility] [address] [id number], [place] [address]- 1619 10 Jul, 2013 [facility] [place] [facility] [address] [id number] [place] [address]- 9570 Jul, [facility] [address] [id number] [place] [address]- 4959 Jul, [facility] [place] [facility] [address] [id number] [place] [address]- 8896 Jul, [facility] [place] [facility] [address] [id number] [place] [address]- 0199 Jul, [facility] [place] [facility] [address] [id number] [place] [address]- 6397 Jul, [facility] [place] [facility] [address] [id number] [place] [address]- 3889 Jun, [facility] [place] [facility] [address] [id number] [place] [address]- 1039 Jun, [facility] [place] [facility] [address] [id number] [place] [address]- 1301 May, [facility] [place] [facility] [address] [id number] [place] [address]- 6017 May, [facility] [place] [facility] [address] [id number] [place] [address]- 2704 May, [facility] [address] [id number] [place] [address]- 4826 May, [facility] [place] [facility] [address] [id number] [place] [address]- 6320 Apr, [facility] [place] [facility] [address] [id number] [place] [address]- 7969 Apr, [facility] [place] [facility] [address] [id number] [place] [address]- 3026 Mar, [facility] [place] [facility] [address] [id number] [place] [address]- 6781 Mar, [facility] [place] [facility] [address] [id number] [place] 0051 Feb, [facility] [place] [facility] [address] [id number] [place] [address]- 8797 Feb, [facility] [place] [facility] [address] [id number] [place] [address]- 2261 Feb, [facility] [place] [facility] [address] [id number] [place] [address]- 4769 Feb, [facility] [place] [facility] [address] [id number] [place] [address]- 9638 Jan, [facility] [place] [facility] [address] [id number] [place] [address]- 3923 Jan, [facility] [place] [facility] [address] [id number] [place] [address]- 9005 Jan, [facility] [place] [facility] [address] [id number] [place] [address]- 0826 Jan, [facility] [place] [facility] [address] [id number], [place] [address]- 3034 Jan, [facility] [place] [facility] [address] [id number] [place] [address]- 9756 Dec, [facility] [place] [facility] [address] [id number], [place] [address]- 4154 Dec, [facility] [place] [facility] [address] [id number], [place] [address]- 3650 Nov, [facility] [place] [facility] [address] [id number], [place] [address]- 7578 Sep, [facility] [place] [facility] [address] [id number] [place] [address]- 8059 August, [facility] [place] [facility] [address] [id number], [place] [address]- 2176 August, [facility] [place] [facility] [address] [id number] [place] [address]- 2695 Jul, [facility] [place] [facility] [address] [id number] [place] [address]- 8532 Jul, [facility] [address] [id number] [place] [address]- 2293 Jul, [facility] [place] [facility] [address] [id number] [place] [address]- 0976 Jul, [facility] [address] [id number] [place] [address]- 7644 Jul, [facility] [place] [facility] [address] [id number] [place] [address]- 1509 Jul, [facility] [place] [facility] [address] [id number] [place] [address]- 1854 Jul, [facility] [place] [facility] [address] [id number] [place] [address]- 5576 Jun, [facility] [address] [id number] [place] [address]- 6681 Jun, [facility] [address] [id number] [place] [address]- 2984 May, [facility] [address] [id number] [place] [address]- 4158 Apr, [facility] [address] [id number] [place] [address]- 8304 Apr, [facility] [address] [id number] [place] [address]- 4995 Mar, [facility] [place] [facility] [address] [id number] [place] [address]- 1951 Mar, [facility] [place] [facility] [address] [id number] [place] [address]- 8099 Mar, [facility] [place] [facility] [address] [id number] [place] [address]- 9014 Feb, [facility] [place] [facility] [address] [id number] [place] 9715 Feb, [facility] [place] [facility] [address] [id number] [place] [address]- 6950 24 Feb, 2012 [facility] [place] [facility] [address] [id number] [place] [address]- 5411 24 Feb, 2012 [facility] [place] [facility] [address] [id number] [place] [address]- 0010 Feb, [facility] [place] [facility] [address] [id number] [place] [address]- 7007 Feb, [facility] [place] [facility] [address] [id number] [place] [address]- 8446 16 Feb, 2012 [facility] [place] [facility] [address] [id number] [place] [address]- 7038 16 Feb, 2012 [facility] [place] [facility] [address] [id number] [place] [address]- 7040 14 Feb, 2012 [facility] [place] [facility] [address] [id number] [place] [address]- 0305 Feb, [facility] [place] [facility] [address] [id number] [place] [address]- 1140 Feb, [facility] [place] [facility] [address] [id number] [place] [address]- 1562 Dec, [facility] [place] [facility] [address] [id number] [place] [address]- 5272 Dec, [facility] [place] [facility] [address] [id number] [place] [address]- 5866 30 Nov, 2011 [facility] [place] [facility] [address] [id number] [place] [address]- 2106 Nov, [facility] [place] [facility] [address] [id number] [place] [address]- 8022 Oct, [facility] [place] [facility] [address] [id number] [place] [address]- 4922 Oct, [facility] [place] [facility] [address] [id number], [place] [address]- 7927 Sep, [facility] [address] [id number] [place] [address]- 3034 May, [facility] [place] [facility] [address] [id number] [place] [address]- 2473 May, [facility] [place] [facility] [address] [facility] [facility] [id number] [place] [address]- 9346 May, [facility] [place] [facility] [address] [id number] [place] 0739 Apr, [facility] [address] [id number] [place] 6269 Mar, [facility] [place] [facility] [address] [id number] [place] [address]- 2467 Mar, [facility] [place] [facility] [address] [facility] [address] [facility] [id number], [place] [address]- 0590 Feb, [facility] [place] [facility] [address] [id number] [place] [address]- 8582 Feb, [facility] [place] [facility] [address] [facility] [address] [facility] [id number], [place] [address]- 2145 Feb, [facility] [place] [facility] [address] [facility] [address] [facility] [id number], [place] [address]- 5062 Jan, [facility] [place] [facility] [address] [facility] [address] [facility] [id number], [place] [address]- 6837 Jan, [facility] [place] [facility] [address] [facility] [address] [facility] [id number], [place] [address]- 5203 Dec, [facility] [place] [facility] [address] [id number], [place] [address]- 5205 Mar, [facility] [place] [facility] [address] [id number], [place] [address]- 9380 Feb, [facility] [place] [facility] [address] [facility] [address] [facility] [id number], [place] [address]- 9189 Feb, [facility] [place] [facility] [address] [id number], [place] [address]- 2546 Feb, [facility] [address] [id number], [place] [address]- 2546 Jan, [facility] [address], [place] [address]- 2546 16 Dec, 2008 [facility] [address], [place] [address]- 2546 Nov, [facility] [address], [place] [address]- 2546 Sep, [facility] [id number] [place] [address] August, [facility] [id number], [place] [address] May, [facility] [id number] [address] Mar, IMMUNIZATIONS No Known Immunizations SOCIAL HISTORY Never Assessed REASON FOR VISIT diet medication PLAN OF CARE VITAL SIGNS MEDICATIONS Medication Instructions Dosage Frequency Start Date End Date Duration Status Contrave 8-90 MG Orally Twice a day Starter directions 12h May, Jun, 30 day(s) Active RESULTS No Results PROCEDURES [...] suicide ideat and attempts. [facility] [place] last around 2006 Hospitalization History left foot swollen, stepped in [facility] 05/02/17
--- OUTSIDE RECORDS SUMMARY | 2017-12-24 02:51 | XMS REPORT ---
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 Name Role Phone CYDNEY HINES Unavailable PROBLEMS Type Condition ICD9-CM Code CUG15-ZC Code Onset Dates Condition Status SNOMED Code Problem History of amphetamine dependence/abuse F15.21 Active 345588295 Problem Degenerative joint disease M19.90 Active 693288502 Problem COPD (chronic obstructive pulmonary disease) J44.9 Active 21337322 Problem Nondependent amphetamine or related acting sympathomimetic abuse, unspecified 305.70 Active Problem Encounter for chronic pain management G89.29 Active 434533552 Problem Seasonal allergic rhinitis due to other allergic trigger J30.89 Active 484074916 Problem Left-sided chest wall pain R07.89 Active 576571594 Problem Bipolar disease, chronic F31.9 Active 47862244 Problem Panic disorder with agoraphobia F40.01 Active 50525677 Problem Chronic pain G89.29 Active 34340435 Problem Psychosis F29 Active 28217737 ALLERGIES Unknown Allergies SOCIAL HISTORY No smoking Hx information available PLAN OF CARE VITAL SIGNS MEDICATIONS Unknown Medications RESULTS No Results PROCEDURES No Known procedures IMMUNIZATIONS No Known Immunizations
--- OUTSIDE RECORDS SUMMARY | 2017-12-24 02:52 | XMS REPORT ---
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 Active 521323010208692 Problem COPD (chronic obstructive pulmonary disease) J44.9 Active 70997737 Problem Right sciatic nerve pain M54.31 Active 07824523 Problem Bipolar disease, chronic F31.9 Active 33268145 Problem Body mass index (BMI) of 40.0-44.9 in adult Z68.41 Active 071462875 Problem Other chronic pain G89.29 Active 79634758 Problem Depressive disorder, not elsewhere classified F32.9 Active 83541810 Problem Morbid (severe) obesity due to excess calories E66.01 Active 67460319135884 Problem Chronic pain G89.29 Active 90560017 Problem Acquired hypothyroidism E03.9 Active 071777463 Problem Panic disorder with agoraphobia F40.01 Active 99351254 Problem Degenerative joint disease M19.90 Active 218471133 Problem Xanax use disorder, moderate F13.20 Active 294084197 Problem Methamphetamine use disorder, severe, 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 Active 24857025 Problem Pre-diabetes R73.03 Active 397222114 Problem Opioid use disorder, moderate, dependence F11.20 Active 85228064 Problem Cigarette nicotine dependence without complication F17.210 Active 54807615 Problem Psychosis, unspecified psychosis type F29 Active 85046928 ALLERGIES No Information ENCOUNTERS Encounter Location Date Diagnosis [facility] [address] [facility] [id number] [place] [address] 70141- 7608 Dec, [place] [address] [place] [id number] [place] [address] 25766- 3704 Oct, [facility] [id number] [place] [address] 17202 -2830 Sep, 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 [place] [id number] [place] [address] 36892- 2615 Sep, [place] [address] [id number] [place] [address] 94506- 1531 Sep, Methamphetamine use disorder, severe, 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 ; Psychosis, unspecified psychosis type F29 ; Personality disorder F60.9 ; Opioid use disorder, moderate, dependence F11.20 ; Xanax use disorder, moderate F13.20 and BMI 40.0-44.9, adult Z68.41 [place] [address] [id number] [place] [address] 05474- 8498 Sep, Depressive disorder, not elsewhere classified F32.9 and Psychosis, unspecified psychosis type F29 [place] [address] [id number] [place] [address] 80027- 5621 August, [place] [address] [address] [id number] [place] [address] 62038- 1434 August, Depressive disorder, not elsewhere classified F32.9 and Psychosis, unspecified psychosis type F29 [place] [address] [id number] [place] [address] 85909- 2299 August, [place] [address] [id number] [place] [address] 73731- 6081 August, Lumbago with sciatica, right side M54.41 and Other chronic pain G89.29 [facility] [id number] [place] [address] 09588 -8228 Jul, Right sciatic nerve pain M54.31 [facility] [id number] [place] [address] 68728- 5493 Jul, Acquired hypothyroidism E03.9 [place] [address] [place] [address] 40120- 0506 Jul, Depressive disorder, not elsewhere classified F32.9 and Psychosis, unspecified psychosis type F29 [place] [address] [address]- 7552 Jul, Acquired hypothyroidism E03.9 ; Lumbago with sciatica, right side M54.41 and Lumbar radiculopathy, acute M54.16 [place] [address] [place] [address] 20710- 3112 Jul, Methamphetamine use disorder, severe, 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 ; Psychosis, unspecified psychosis type F29 ; Personality disorder F60.9 ; Opioid use disorder, moderate, dependence F11.20 ; Xanax use disorder, moderate F13.20 and BMI 40.0-44.9, adult Z68.41 [place] [address] [place] [address] 45323- 6387 Jun, Methamphetamine use disorder, severe, 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 ; Psychosis, unspecified psychosis type F29 ; Personality disorder F60.9 ; Opioid use disorder, moderate, dependence F11.20 and Xanax use disorder, moderate F13.20 [place] [address] [place] [address] 21461- 0998 Jun, Depressive disorder, not elsewhere classified F32.9 and Psychosis, unspecified psychosis type F29 [place] [address] [address]- 1044 Jun, Lumbar radiculopathy, acute M54.16 [place] [address] [id number] [place] [address] 98798- 7485 Jun, Lumbar radiculopathy, acute M54.16 ; Strain of abdominal wall, initial encounter S39.011A and BMI 40.0-44.9, adult Z68.41 [place] [address] [id number] [place] [address] 73418- 1392 Jun, [place] [address] [id number] [place] [address] 68395- 1155 May, [place] [address] 588159- 0375 May, Methamphetamine use disorder, severe, 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 ; Psychosis, unspecified psychosis type F29 ; Personality disorder F60.9 ; Opioid use disorder, moderate, dependence F11.20 and Xanax use disorder, moderate F13.20 [place] [address] 17006- 8464 May, [place] [address] 548362- 0402 May, [place] [address] [address] [id number] [place] [address] 26436- 5575 May, Lumbago with sciatica, left side M54.42 ; Lumbago with sciatica, right side M54.41 ; Other chronic pain G89.29 ; Weight gain R63.5 ; Acquired hypothyroidism E03.9 and BMI 40.0-44.9, adult Z68.41 [place] [address] [id number] [place] [address] 37340- 9405 Apr, Cigarette nicotine dependence without complication F17.210 [place] [address] [address] [address] [place] [address] 14333- 4877 Apr, Acute bilateral low back pain without sciatica M54.5 [place] [address] [address] [place] [address] 50435- 5311 Apr, Methamphetamine use disorder, severe, 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 ; Psychosis, unspecified psychosis type F29 ; Personality disorder F60.9 ; Opioid use disorder, moderate, dependence F11.20 and Xanax use disorder, moderate F13.20 [facility] [id number] [place] [address] 05088 -0679 Apr, Wheezing R06.2 and Bronchitis J40 [place] [address] [address] [place] [address] 20762- 4299 02 Apr, 2017 Bronchitis J40 ; Cigarette nicotine dependence without complication F17.210 and Bipolar disease, chronic F31.9 [place] [address] [address] [place] [address] 29364- 2839 Mar, Acquired hypothyroidism E03.9 [place] [address] 95525- 9448 Mar, Acquired hypothyroidism E03.9 [place] [address] [address] [place] [address] 36954- 6785 Mar, Orthostatic hypotension I95.1 and Non-intractable vomiting with nausea, unspecified vomiting type R11.2 [place] [id number] [place] [address] 72817- 0040 14 Mar, 2017 Strain of lumbar region, initial encounter S39.012A [place] [address] 32387- 6868 Mar, [facility] [address] [place] [address] 04252 -6032 Mar, Bronchitis J40 [place] [address] [id number] [place] [address] 80628- 5763 05 Mar, 2017 Degenerative joint disease M19.90 ; Elevated LFTs R79.89 ; Adenopathy R59.1 ; Drug use F19.90 ; Pre-diabetes R73.03 and COPD (chronic obstructive pulmonary disease) J44.9 [facility] [address] [id number] [place] [address] 62505 -0223 30 Feb, 2017 Left hand pain M79.642 and Contusion of left hand, initial encounter S60.222A [place] [address] [place] [address] 38349- 8750 07 Feb, 2017 Body aches R52 and Flu-like symptoms R68.89 [place] [address] [address] [address] [place] [address] 09935- 8195 Jan, [place] [address] [address] [address] [place] [address] 50469- 0454 Jan, Bipolar disease, chronic F31.9 ; Acquired hypothyroidism E03.9 and Encounter for immunization Z23 [facility] [place] [id number] [place] [address] 60585 -6345 05 Dec, 2016 Crushing injury of left wrist and hand, initial encounter S67.42XA [address] 07490- 4008 Sep, [address] 97501- 1004 Sep, Bipolar disease, chronic F31.9 ; Panic disorder with agoraphobia F40.01 and Proteinuria, unspecified type R80.[address] 57364- 9710 August, [address] 35905- 4217 August, Degenerative joint disease M19.90 ; Left-sided chest wall pain R07.89 ; Bipolar disease, chronic F31.9 ; Type 2 diabetes mellitus without complication, without long-term current use of insulin E11.9 ; Acquired hypothyroidism E03.9 and Acute cystitis without hematuria N30.00 [place] [address] [place] [id number] [place] [address] 14331- 8643 Mar, [place] [address] [place] [id number] [place] [address] 51422- 5869 Feb, [facility] [address] 31284 -0937 Feb, Right hand pain M79.641 [facility] [place] [id number] [place] [address] 04692 -7208 Feb, Bronchitis J40 ; Acute non-recurrent pansinusitis J01.40 and Seasonal allergic rhinitis due to other allergic trigger J30.89 [facility] [address] [address]- 6581 Dec, [facility] [address] [address] -1672 Mar, Left-sided chest wall pain R07.89 and Chronic pain G89.29 [facility] [address] [id number] [place] [address] 16425- 6632 Jul, [facility] [address] [place] [address] 38707- 2029 Jul, [facility] [id number] [place] [address] 96837- 6903 May, [facility] [id number] [place] [address] 18390- 2820 May, [facility] [id number] [place] [address] 30340- 9429 Apr, [facility] [address] [place] [address] 03860- 1909 Apr, [facility] [id number] [place] [address] 90518- 7131 Mar, [facility] [address] [address]- 8358 Mar, [facility] [address] [place] [address] 05233- 0545 Feb, [facility] [address] [address]- 7205 Feb, [facility] [id number] [place] [address] 10758- 1250 Jan, [facility] [address] [address]- 3760 Jan, [facility] [id number] [place] [address] 20348- 7383 28 Jan, 2014 [facility] [place] [facility] [address] [id number] [place] [address]- 4702 28 Jan, 2014 [facility] [place] [facility] [address] [id number] [place] [address]- 1006 15 Jan, 2014 [facility] [place] [facility] [address] [id number] [place] [address]- 7924 15 Jan, 2014 [facility] [place] [facility] [address] [id number] [place] [address]- 8066 19 Dec, 2013 [facility] [place] [facility] [address] [id number] [place] [address]- 6630 19 Dec, 2013 [facility] [place] [facility] [address] [id number] [place] [address]- 6912 19 Dec, 2013 [facility] [place] [facility] [address] [id number] [place] [address]- 9600 19 Dec, 2013 [facility] [place] [facility] [address] [id number] [place] [address]- 4448 18 Dec, 2013 [facility] [place] [facility] [address] [id number] [place] [address]- 9400 18 Dec, 2013 [facility] [place] [facility] [address] [id number] [place] [address]- 3799 16 Dec, 2013 [facility] [place] [facility] [address] [id number] [place] [address]- 7137 16 Dec, 2013 [facility] [place] [facility] [address] [id number] [address]- 9250 17 Sep, 2013 [facility] [place] [facility] [address] [id number] [place] [address]- 3214 17 Sep, 2013 [facility] [place] [facility] [address] [id number] [place] [address]- 8950 15 Jul, 2013 [facility] [place] [facility] [address] [id number] [place] [address]- 1223 15 Jul, 2013 [facility] [place] [facility] [address] [id number] [place] [address]- 0842 Jul, [facility] [address] [id number] [place] [address]- 3019 Jul, [facility] [place] [facility] [address] [id number] [place] [address]- 0950 Jul, [facility] [place] [facility] [address] [id number] [place] [address]- 1771 Jul, [facility] [place] [facility] [address] [id number] [place] [address]- 6696 Jul, [facility] [place] [facility] [address] [id number] [place] [address]- 6062 Jul, [facility] [place] [facility] [address] [id number] [place] [address]- 4302 Jun, [facility] [place] [facility] [address] [id number] [place] [address]- 0834 Jun, [facility] [place] [facility] [address] [id number] [place] [address]- 3140 May, [facility] [place] [facility] [address] [id number] [place] [address]- 6293 May, [facility] [place] [facility] [address] [id number] [place] [address]- 7900 May, [facility] [place] [facility] [address] [id number] [place] [address]- 8873 May, [facility] [place] [facility] [address] [id number] [place] [address]- 8970 Apr, [facility] [place] [facility] [address] [id number] [place] [address]- 2142 Apr, [facility] [place] [facility] [address] [id number] [place] 4805 Mar, [facility] [place] [facility] [address] [id number] [place] [address]- 1243 Mar, [facility] [place] [facility] [address] [id number] [place] [address]- 7282 Feb, [facility] [place] [facility] [address] [id number] [place] [address]- 5862 Feb, [facility] [place] [facility] [address] [facility] [id number] [place] [address] 2540 Feb, [facility] [place] [facility] [address] [id number] [place] [address]- 2915 Feb, [facility] [place] [facility] [address] [id number] [place] [address]- 4513 Jan, [facility] [place] [facility] [address] [id number] [place] [address]- 3226 Jan, [facility] [place] [facility] [address] [id number] [place] [address]- 9711 Jan, [facility] [place] [facility] [address] [id number] [address]- 5422 Jan, [facility] [place] [facility] [address] [id number], [place] [address]- 7543 Jan, [facility] [place] [facility] [address] [id number], [place] [address]- 3468 Dec, [facility] [place] [facility] [address] [id number], [place] [address] 2546 Dec, [facility] [place] [facility] [address] [id number], [place] [address] 2540 Nov, [facility] [place] [facility] [address] [id number], [place] [address]- 2541 Sep, [facility] [place] [facility] [address] [id number], [place] [address]- 2546 August, [facility] [place] [facility] [address] [facility] [id number], [place] [address]- 2546 August, [facility] [place] [facility] [address] [id number] [place] [address]- 2814 30 Jul, 2012 [facility] [address] [id number] [place] [address]- 5145 Jul, [facility] [place] [facility] [address] [id number] [place] [address]- 5176 Jul, [facility] [address] [id number] [place] [address]- 7856 Jul, [facility] [place] [facility] [address] [id number] [place] [address]- 4260 Jul, [facility] [address] [id number] [place] [address]- 4552 Jul, [facility] [address] [id number] [place] [address]- 2195 Jul, [facility] [address] [id number] [place] [address]- 8013 Jun, [facility] [address] [id number] [place] [address]- 3721 Jun, [facility] [address] [id number] [place] [address]- 5497 May, [facility] [address] [id number] [place] [address]- 6621 Apr, [facility] [address] [id number] [place] [address]- 9278 Apr, [facility] [address] [id number] [place] [address]- 4392 Mar, [facility] [place] [facility] [address] [id number] [place] [address]- 3336 Mar, [facility] [place] [facility] [address] [id number] [place] 5730 Mar, [facility] [address] [id number] [place] [address]- 4019 Feb, [facility] [place] [facility] [address] [id number] [place] [address]- 6132 Feb, [facility] [place] [facility] [address] [id number] [place] [address]- 9930 Feb, [facility] [place] [facility] [address] [id number] [place] [address]- 7757 Feb, [facility] [place] [facility] [address] [id number] [place] [address]- 6616 Feb, [facility] [place] [facility] [address] [id number] [place] [address]- 5470 Feb, [facility] [place] [facility] [address] [id number] [place] [address]- 4631 Feb, [facility] [place] [facility] [address] [id number] [place] [address]- 9769 16 Feb, 2012 [facility] [place] [facility] [address] [id number] [place] [address]- 5029 14 Feb, 2012 [facility] [place] [facility] [address] [id number] [place] [address]- 2555 Feb, [facility] [place] [facility] [address] [id number] [place] [address]- 6664 Feb, [facility] [place] [facility] [address] [id number] [place] [address]- 2648 27 Dec, 2011 [facility] [place] [facility] [address] [id number] [place] [address]- 7160 07 Dec, 2011 [facility] [place] [facility] [address] [id number] [place] [address]- 5902 30 Nov, 2011 [facility] [place] [facility] [address] [id number] [place] [address]- 3828 Nov, [facility] [place] [facility] [address] [id number] [place] [address]- 4886 Oct, [facility] [place] [facility] [address] [id number], [place] [address]- 4138 Oct, [facility] [address] [id number] [place] [address]- 9512 Sep, [facility] [place] [facility] [address] [id number], [place] [address]- 9196 May, [facility] [place] [facility] [address] [facility] [id number] [place] [address]- 3120 May, [facility] [place] [facility] [address] [id number] [place] [address]- 1356 May, [facility] [address] [facility] [id number] [place] [address], [place] [address]- 1889 Apr, [facility] [place] [facility] [address] [facility] [id number] [place] 7884 Mar, [facility] [address] [facility] [id number], [place] [address]- 9140 Mar, [facility] [place] [facility] [address] [facility] [id number][place] [address]- 8603 Feb, [facility] [place] [facility] [address] [facility] [id number], [place] [address]- 5684 Feb, [facility] [place] [facility] [address] [facility] [id number], [place] [address]- 2366 Feb, [facility] [place] [facility] [address] [facility] [id number], [place] [address]- 4311 Jan, [facility] [place] [facility] [address] [facility] [id number][place] [address]- 2634 Jan, [facility] [place] [facility] [address] [facility] [id number][place] [address]- 4212 Dec, [facility] [place] [facility] [address] [facility] [id number], [place] [address]- 3812 Mar, [facility] [place] [facility] [address] [facility] [id number], [place] [address]- 2523 Feb, [facility] [place] [facility] [address] [id number] [address]- 2546 10 Feb, 2009 [facility] [address] [address]- 9446 Feb, [facility] [address], [place] [address]- 5406 Jan, [facility] [address] [address]- 2246 Dec, [facility] [id number] [address] Nov, [facility] [id number] [address] Sep, [facility] [id number] [address] August, [facility] [id number] [address] May, [facility] [id number] [address] Mar, IMMUNIZATIONS No Known Immunizations SOCIAL HISTORY Never Assessed REASON FOR VISIT med refill PLAN OF CARE VITAL SIGNS MEDICATIONS Medication Instructions Dosage Frequency Start Date End Date Duration Status Seroquel 200 MG Orally daily 0.5 tablet every night for 3 nights then take one tablet eveyr night 24h Apr, 30 day(s) Active Seroquel 50 MG Orally Three times a day as needed for mood,anxiety 0.5-1 tablet Apr, 30 day(s) Active RESULTS No Results PROCEDURES [...]
--- OUTSIDE RECORDS SUMMARY | 2017-12-24 02:52 | XMS REPORT ---
Author Author YOGESH DALTON [facility] Address [address] [place] [address] Care Team Providers Care Options Trader Name Role Phone YOGESH DALTON Unavailable PROBLEMS Type Condition ICD9-CM Code MHL64-CE Code Onset Dates Condition Status SNOMED Code Problem Psychosis, unspecified psychosis type F29 Active 73024135 Problem Lumbago with sciatica, left side M54.42 Active 502420846 Problem Personality disorder F60.9 Active 20571984 Problem Right sciatic nerve pain M54.31 Active 91322959 Problem Bipolar disease, chronic F31.9 Active 90091701 Problem Depressive disorder, not elsewhere classified F32.9 Active 66693919 Problem Other chronic pain G89.29 Active 27822135 Problem Lumbago with sciatica, right side M54.41 Active 521813929876365 Problem Morbid (severe) obesity due to excess calories E66.01 Active 91127367096393 Problem Body mass index (BMI) of 40.0-44.9 in adult Z68.41 Active 561019185 Problem Degenerative joint disease M19.90 Active 268882142 Problem Chronic pain G89.29 Active 91447381 Problem COPD (chronic obstructive pulmonary disease) J44.9 Active 46080986 Problem Panic disorder with agoraphobia F40.01 Active 19517510 Problem Cigarette nicotine dependence without complication F17.210 Active 80728025 Problem Xanax use disorder, moderate F13.20 Active 061196301 Problem Acquired hypothyroidism E03.9 Active 577537670 Problem Methamphetamine use disorder, severe, 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 Active 12821792 Problem Pre-diabetes R73.03 Active 769632469 Problem Opioid use disorder, moderate, dependence F11.20 Active 93646846 ALLERGIES No Information ENCOUNTERS Encounter Location Date Diagnosis [facility] [address] [facility] [id number] [address] Sep, [facility] [address] [id number] [address] Sep, [facility] [id number] [place] [address] 11496- 6935 August, [facility] [id number] [place] [address] 75925- 9176 August, Depressive disorder, not elsewhere classified F32.9 and Psychosis, unspecified psychosis type F29 [place] [id number] [place] [address] 66824- 0209 August, [place] [id number] [place] [address] 40862- 0674 August, Lumbago with sciatica, right side M54.41 and Other chronic pain G89.29 [facility] [id number] [place] [address] 80194 -4781 Jul, Right sciatic nerve pain M54.31 [place] [id number] [place] [address] 30260- 8100 Jul, Acquired hypothyroidism E03.9 [place] [id number] [place] [address] 19131- 3431 Jul, Depressive disorder, not elsewhere classified F32.9 and Psychosis, unspecified psychosis type F29 [place] [id number] [place] [address] 79843- 8817 Jul, Acquired hypothyroidism E03.9 ; Lumbago with sciatica, right side M54.41 and Lumbar radiculopathy, acute M54.16 [place] [id number] [place] [address] 72250- 5039 Jul, Methamphetamine use disorder, severe, 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 ; Psychosis, unspecified psychosis type F29 ; Personality disorder F60.9 ; Opioid use disorder, moderate, dependence F11.20 ; Xanax use disorder, moderate F13.20 and BMI 40.0-44.9, adult Z68.41 [place] [id number] [place] [address] 18229- 5777 Jun, Methamphetamine use disorder, severe, 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 ; Psychosis, unspecified psychosis type F29 ; Personality disorder F60.9 ; Opioid use disorder, moderate, dependence F11.20 and Xanax use disorder, moderate F13.20 [facility] [id number] [place] [address] 17524- 3994 Jun, Depressive disorder, not elsewhere classified F32.9 and Psychosis, unspecified psychosis type F29 [facility] [id number] [place] [address] 13885- 9637 Jun, Lumbar radiculopathy, acute M54.16 [place] [id number] [place] [address] 32059- 3051 Jun, Lumbar radiculopathy, acute M54.16 ; Strain of abdominal wall, initial encounter S39.011A and BMI 40.0-44.9, adult Z68.41 [place] [id number] [place] [address] 32050- 0563 Jun, [place] [id number] [place] [address] 60706- 5452 May, [facility] [id number] [place] [address] 38563- 5671 May, Methamphetamine use disorder, severe, 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 ; Psychosis, unspecified psychosis type F29 ; Personality disorder F60.9 ; Opioid use disorder, moderate, dependence F11.20 and Xanax use disorder, moderate F13.20 [place] [id number] [place] [address] 17624- 2728 May, [place] [id number] [place] [address] 07610- 9255 May, [facility] [id number] [place] [address] 78912- 3644 May, Lumbago with sciatica, left side M54.42 ; Lumbago with sciatica, right side M54.41 ; Other chronic pain G89.29 ; Weight gain R63.5 ; Acquired hypothyroidism E03.9 and BMI 40.0-44.9, adult Z68.41 [place] [id number] [place] [address] 66113- 5639 Apr, Cigarette nicotine dependence without complication F17.210 [place] [address] 42004- 6699 Apr, Acute bilateral low back pain without sciatica M54.5 [place] [address] 072499- 1424 Apr, Methamphetamine use disorder, severe, 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 ; Psychosis, unspecified psychosis type F29 ; Personality disorder F60.9 ; Opioid use disorder, moderate, dependence F11.20 and Xanax use disorder, moderate F13.20 [facility] [address] 30118 -9500 Apr, Wheezing R06.2 and Bronchitis J40 [place] [address] 40532- 6776 Apr, Bronchitis J40 ; Cigarette nicotine dependence without complication F17.210 and Bipolar disease, chronic F31.9 [place] [address] 18565- 3429 Mar, Acquired hypothyroidism E03.9 [place] [address] 84910- 3807 Mar, Acquired hypothyroidism E03.9 [place] [address] 94759- 4265 Mar, Orthostatic hypotension I95.1 and Non-intractable vomiting with nausea, unspecified vomiting type R11.2 [place] [id number] [place] [address] 27758- 6224 Mar, Strain of lumbar region, initial encounter S39.012A [place] [id number] [place] [address] 06202- 4633 Mar, [facility] IN [facility] [address] 28491 -9813 Mar, Bronchitis J40 [place] [id number] [place] [address] 26694- 3229 05 Mar, 2017 Degenerative joint disease M19.90 ; Elevated LFTs R79.89 ; Adenopathy R59.1 ; Drug use F19.90 ; Pre-diabetes R73.03 and COPD (chronic obstructive pulmonary disease) J44.9 [facility] [address] 83392 -5282 Feb, Left hand pain M79.642 and Contusion of left hand, initial encounter S60.222A [address] 76177- 2831 Feb, Body aches R52 and Flu-like symptoms R68.89 [place] [id number] [place] [address] 81531- 3048 Jan, [address] 67279- 2742 Jan, Bipolar disease, chronic F31.9 ; Acquired hypothyroidism E03.9 and Encounter for immunization Z23 [facility] [id number] [place] [address] 66063 -4226 Dec, Crushing injury of left wrist and hand, initial encounter S67.42XA [place] [id number] [place] [address] 52983- 5996 Sep, [address] 38204- 0621 Sep, Bipolar disease, chronic F31.9 ; Panic disorder with agoraphobia F40.01 and Proteinuria, unspecified type R80.9 [place] [address] 40349- 8553 August, [facility] [id number] [place] [address] 01894- 2229 August, Degenerative joint disease M19.90 ; Left-sided chest wall pain R07.89 ; Bipolar disease, chronic F31.9 ; Type 2 diabetes mellitus without complication, without long-term current use of insulin E11.9 ; Acquired hypothyroidism E03.9 and Acute cystitis without hematuria N30.00 [place] [address] 77074- 1632 Mar, [place] [address] 10399- 4761 Feb, [facility] [place] [address] 59755 -2786 Feb, Right hand pain M79.641 [facility] IN [address] 19469 -6510 Feb, Bronchitis J40 ; Acute non-recurrent pansinusitis J01.40 and Seasonal allergic rhinitis due to other allergic trigger J30.89 [place] [address] 94449- 1719 Dec, [facility] [place] [id number] [place] [address] 94358 -4931 Mar, Left-sided chest wall pain R07.89 and Chronic pain G89.29 [place] [id number] [place] [address] 61926- 2662 Jul, [place] [address] 19956- 6313 Jul, [place] [address] 15018- 9397 May, [place] [address] 91090- 9813 May, [place] [address] 39446- 9381 Apr, [facility] [place] [facility] [address] [id number] [place] [address]- 7036 Apr, [facility] [place] [facility] [address] [id number] [place] [address] Mar, [facility] [place] [facility] [address] [id number] [place]191 Mar, [facility] [place] [facility] [address] [id number] [place]70 Feb, [facility] [place] [facility] [address] [id number] [place] [address]- 9509 Feb, [facility] [place] [facility] [address] [id number] [place] [address]- 4540 Jan, [facility] [place] [facility] [address] [id number] [place] [address]- 5048 Jan, [facility] [place] [facility] [address] [id number] [place] [address]- 9115 Jan, [facility] [place] [facility] [address] [id number] [place] [address]- 3672 Jan, [facility] [place] [facility] [address] [id number] [place] [address]- 3950 Jan, [facility] [place] [facility] [address] [id number] [address]- 8457 15 Jan, 2014 [facility] [place] [facility] [address] [id number], [place] [address]- 5235 19 Dec, 2013 [facility] [place] [facility] [address] [id number] [place] [address]- 4468 19 Dec, 2013 [facility] [place] [facility] [address] [id number] [place] [address]- 9896 19 Dec, 2013 [facility] [place] [facility] [address] [id number] [place] [address]- 0431 19 Dec, 2013 [facility] [place] [facility] [address] [id number] [place] [address]- 8291 18 Dec, 2013 [facility] [address] [id number] [place] [address]- 5547 18 Dec, 2013 [facility] [place] [facility] [address] [id number] [place] [address]- 3296 16 Dec, 2013 [facility] [address] [id number] [place] [address]- 0627 16 Dec, 2013 [facility] [place] [facility] [address] [id number] [place] [address]- 9770 17 Sep, 2013 [facility] [place] [facility] [address] [id number] [place] [address]- 1902 17 Sep, 2013 [facility] [place] [facility] [address] [id number] [place] [address]- 8442 15 Jul, 2013 [facility] [place] [facility] [address] [id number] [place] [address]- 3214 15 Jul, 2013 [facility] [address] [id number] [place] [address]- 6971 10 Jul, 2013 [facility] [place] [facility] [address] [id number] [place] [address]- 1451 Jul, [facility] [address] [id number] [place] [address]- 6894 Jul, [facility] [place] [facility] [address] [id number] [place] [address]- 0860 Jul, [facility] [place] [facility] [address] [id number] [place] [address]- 4474 Jul, [facility] [place] [facility] [address] [id number] [place] [address]- 0740 Jul, [facility] [place] [facility] [address] [id number] [place] [address]- 5557 Jun, [facility] [place] [facility] [address] [id number] [place] [address]- 4533 Jun, [facility] [place] [facility] [address] [id number] [place] [address]- 1477 May, [facility] [place] [facility] [address] [id number] [place] [address]- 1309 May, [facility] [place] [facility] [address] [id number] [place] [address]- 7959 May, [facility] [place] [facility] [address] [id number] [place] [address]- 0697 May, [facility] [place] [facility] [address] [id number] [place] 1175 Apr, [facility] [place] [facility] [address] [id number] [place] [address]- 5791 Apr, [facility] [place] [facility] [address] [id number] [place] [address]- 3630 Mar, [facility] [place] [facility] [address] [id number], [place] [address]- 5509 Mar, [facility] [place] [facility] [address] [id number] [place] [address]- 4466 Feb, [facility] [place] [facility] [address] [id number] [place] [address]- 1388 Feb, [facility] [place] [facility] [address] [id number], [place] [address]- 3557 Feb, [facility] [place] [facility] [address] [id number], [place] [address]- 6738 Feb, [facility] [place] [facility] [address] [id number] [place] [address]- 9677 Jan, [facility] [place] [facility] [address] [id number], [place] [address]- 6909 Jan, [facility] [place] [facility] [address] [facility] [id number] [place] [address]- 7572 Jan, [facility] [place] [facility] [address] [id number] [place] [address]- 9858 Jan, [facility] [address] [id number] [place] [address]- 0083 Jan, [facility] [address] [id number] [place] [address]- 6535 Dec, [facility] [address] [id number] [place] [address]- 8433 Dec, [facility] [address] [id number] [place] [address]- 7117 Nov, [facility] [address] [id number] [place] [address]- 2952 Sep, [facility] [address] [id number] [place] [address]- 8989 August, [facility] [address] [id number] [place] [address]- 2817 August, [facility] [address] [id number] [place] [address]- 5669 Jul, [facility] [address] [id number] [place] [address]- 6483 Jul, [facility] [address] [id number] [place] [address]- 8039 Jul, [facility] [address] [id number] [place] [address]- 7375 Jul, [facility] [address] [id number] [place] [address]- 0858 Jul, [facility] [place] [facility] [address] [id number] [place] [address]- 2025 Jul, [facility] [place] [facility] [address] [id number] [place] 5685 Jul, [facility] [address] [id number] [place] [address]- 7467 Jun, [facility] [place] [facility] [address] [id number] [place] [address]- 6916 Jun, [facility] [place] [facility] [address] [id number] [place] [address]- 3113 May, [facility] [place] [facility] [address] [id number] [place] [address]- 7537 Apr, [facility] [place] [facility] [address] [id number] [place] [address]- 2003 Apr, [facility] [place] [facility] [address] [id number] [place] [address]- 8431 Mar, [facility] [place] [facility] [address] [id number] [place] [address]- 2213 Mar, [facility] [place] [facility] [address] [id number] [place] [address]- 5812 Mar, [facility] [place] [facility] [address] [id number] [place] [address]- 4418 Feb, [facility] [place] [facility] [address] [id number] [place] [address]- 2854 Feb, [facility] [place] [facility] [address] [id number] [place] [address]- 1871 Feb, [facility] [place] [facility] [address] [id number] [place] [address]- 4107 Feb, [facility] [place] [facility] [address] [id number] [place] [address]- 2843 Feb, [facility] [place] [facility] [address] [id number] [place] [address]- 3177 Feb, [facility] [place] [facility] [address] [id number] [place] [address]- 8122 Feb, [facility] [place] [facility] [address] [id number] [place] 5597 Feb, [facility] [place] [facility] [address] [id number], [place] [address]- 7549 14 Feb, 2012 [facility] [address] [id number] [place] [address]- 6274 08 Feb, 2012 [facility] [place] [facility] [address] [id number] [place] [address]- 7280 08 Feb, 2012 [facility] [place] [facility] [address] [id number] [place] [address]- 1506 27 Dec, 2011 [facility] [place] [facility] [address] [id number] [place] [address]- 3739 07 Dec, 2011 [facility] [place] [facility] [address] [id number] [place] [address]- 6231 30 Nov, 2011 [facility] [place] [facility] [address] [id number] [place] [address]- 6366 Nov, [facility] [place] [facility] [address] [id number] [place] [address]- 1436 Oct, [facility] [place] [facility] [address] [id number] [place] [address]- 5990 Oct, [facility] [place] [facility] [address] [id number] [place] [address]- 1731 Sep, [facility] [place] [facility] [address] [id number] [place] [address]- 0604 May, [facility] [place] [facility] [address] [id number] [place] [address]- 1169 15 May, 2011 [facility] [place] [facility] [address] [id number] [place] [address]- 6467 May, [facility] [place] [facility] [address] [id number] [place] [address]- 6531 Apr, [facility] [place] [facility] [address] [id number] [place] [address]- 8538 Mar, [facility] [place] [facility] [address] [facility] [id number] [place] [address]- 2917 Mar, [facility] [place] [facility] [address] [id number] [place] [address]- 9129 Feb, [facility] [place] [facility] [address] [id number] [place] [address]- 9516 Feb, [facility] [place] [facility] [address] [id number] [place] [address]- 0237 Feb, [facility] [place] [facility] [address] [id number] [place] [address]- 4781 14 Jan, 2011 [facility] [place] [facility] [address] [id number] [place] [address]- 2541 14 Jan, 2011 [facility] [place] [facility] [address] [id number] [place] [address]- 6099 19 Dec, 2010 [facility] [place] [facility] [address] [id number] [place] 0929 Mar, [facility] [place] [facility] [address] [id number] [place] [address]- 8736 Feb, [facility] [place] [facility] [address] [id number] [place] [address]- 1196 Feb, [facility] [place] [facility] [address] [id number] [place] [address]- 4319 Feb, [facility] [place] [facility] [address] [facility] [id number] [place] [address]- 0266 Jan, [facility] [place] [facility] [address] [id number] [place] [address]- 4804 16 Dec, 2008 [facility] [place] [facility] [address] [id number] [place] [address]- 0584 Nov, [facility] [place] [facility] [address] [id number] [place] [address]- 7078 13 Sep, 2008 [facility] [place] [facility] [address] [id number] [place] [address]- 6984 August, [facility] [place] [facility] [address] [id number] [place] [address]- 6929 May, [facility] [address] [facility] [id number] [place] [address]- 3356 Mar, IMMUNIZATIONS No Known Immunizations SOCIAL HISTORY Never Assessed REASON FOR VISIT Triage- pt presents to clinic with complaints of cough and feeling bad- states she was seen in Walk-In and given steroids but does not feel like it has helped , reports doing breathing treatments of albuterol at home. Lungs CTA, no fever, VSS. told pt to get Mucinex and push fluids as well as continue current treatment. If pt is not feeling better after a few days to call clinic- Voiced understanding- Jonah Gamboa RN PLAN OF CARE VITAL SIGNS Height 63 in 2017-03-20 Temperature 98.0 degrees Fahrenheit 2017-03-20 Heart Rate 82 bpm 2017-03-20 Respiratory Rate 18 2017-03-20 Oximetry 97 % 2017-03-20 Blood pressure systolic 110 mmHg 2017-03-20 Blood pressure diastolic 70 mmHg 2017-03-20 MEDICATIONS Unknown Medications RESULTS No Results PROCEDURES Procedure Date Ordered Result Body Site MEASURE BLOOD OXYGEN LEVEL Mar 20, 2017 INSTRUCTIONS MEDICATIONS ADMINISTERED No Known Medications [...] left foot swollen, stepped in [facility] 05/02/17
--- OUTSIDE RECORDS SUMMARY | 2017-12-24 02:52 | XMS REPORT ---
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 Active [id number] Problem COPD (chronic obstructive pulmonary disease) J44.9 Active 11318507 Problem Right sciatic nerve pain M54.31 Active 29212190 Problem Bipolar disease, chronic F31.9 Active 60475671 Problem Body mass index (BMI) of 40.0-44.9 in adult Z68.41 Active 530243926 Problem Other chronic pain G89.29 Active 46323449 Problem Depressive disorder, not elsewhere classified F32.9 Active 70340011 Problem Morbid (severe) obesity due to excess calories E66.01 Active 91614268634611 Problem Chronic pain G89.29 Active 78637338 Problem Acquired hypothyroidism E03.9 Active 569672796 Problem Panic disorder with agoraphobia F40.01 Active 16568430 Problem Degenerative joint disease M19.90 Active 218827903 Problem Xanax use disorder, moderate F13.20 Active 186245105 Problem Methamphetamine use disorder, severe, 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 Active 13114357 Problem Pre-diabetes R73.03 Active 000653557 Problem Opioid use disorder, moderate, dependence F11.20 Active 92362983 Problem Cigarette nicotine dependence without complication F17.210 Active 74391283 Problem Psychosis, unspecified psychosis type F29 Active 22568508 ALLERGIES No Information ENCOUNTERS Encounter Location Date Diagnosis [facility] [address] [facility] [id number], [place] [address] Dec, [facility] [id number] [place] [address]156- 4305 Oct, [facility] [id number] [place] [address] 65819 -8246 Sep, 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 [place] [id number] [place] [address] 53451- 8716 Sep, [place] [id number] [place] [address] 85730- 9554 Sep, Methamphetamine use disorder, severe, 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 ; Psychosis, unspecified psychosis type F29 ; Personality disorder F60.9 ; Opioid use disorder, moderate, dependence F11.20 ; Xanax use disorder, moderate F13.20 and BMI 40.0-44.9, adult Z68.41 [place] [id number] [place] [address] 04337- 4202 Sep, Depressive disorder, not elsewhere classified F32.9 and Psychosis, unspecified psychosis type F29 [place] [id number] [place] [address] 20929- 9061 August, [place] [id number] [place] [address] 06153- 6867 August, Depressive disorder, not elsewhere classified F32.9 and Psychosis, unspecified psychosis type F29 [place] [id number] [place] [address] 39539- 0142 August, [place] [id number] [place] [address] 84909- 2755 August, Lumbago with sciatica, right side M54.41 and Other chronic pain G89.29 [facility] [id number] [place] [address] 10372 -7813 Jul, Right sciatic nerve pain M54.31 [facility] [id number] [place] [address] 61724- 6687 Jul, Acquired hypothyroidism E03.9 [place] [address] [place] [address] 67491- 2679 Jul, Depressive disorder, not elsewhere classified F32.9 and Psychosis, unspecified psychosis type F29 [place] [id number] [place] [address] 11704- 5134 Jul, Acquired hypothyroidism E03.9 ; Lumbago with sciatica, right side M54.41 and Lumbar radiculopathy, acute M54.16 [place] [address] [place] [address] 71077- 4252 Jul, Methamphetamine use disorder, severe, 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 ; Psychosis, unspecified psychosis type F29 ; Personality disorder F60.9 ; Opioid use disorder, moderate, dependence F11.20 ; Xanax use disorder, moderate F13.20 and BMI 40.0-44.9, adult Z68.41 [place] [id number] [place] [address] 95295- 8200 Jun, Methamphetamine use disorder, severe, 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 ; Psychosis, unspecified psychosis type F29 ; Personality disorder F60.9 ; Opioid use disorder, moderate, dependence F11.20 and Xanax use disorder, moderate F13.20 [place] [address] [place] [address] 14440- 8795 Jun, Depressive disorder, not elsewhere classified F32.9 and Psychosis, unspecified psychosis type F29 [place] [address] [place] [address] 99413- 3904 Jun, Lumbar radiculopathy, acute M54.16 [place] [id number] [place] [address] 70344- 4783 Jun, Lumbar radiculopathy, acute M54.16 ; Strain of abdominal wall, initial encounter S39.011A and BMI 40.0-44.9, adult Z68.41 [place] [id number] [place] [address] 95963- 4638 Jun, [place] [id number] [place] [address] 35051- 4186 May, [place] [address] [place] 257775- 3271 May, Methamphetamine use disorder, severe, 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 ; Psychosis, unspecified psychosis type F29 ; Personality disorder F60.9 ; Opioid use disorder, moderate, dependence F11.20 and Xanax use disorder, moderate F13.20 [place] [id number] [place] [address] 47738- 8353 May, [place] [address] 15722- 6581 May, [place] [address] 87094- 7191 May, Lumbago with sciatica, left side M54.42 ; Lumbago with sciatica, right side M54.41 ; Other chronic pain G89.29 ; Weight gain R63.5 ; Acquired hypothyroidism E03.9 and BMI 40.0-44.9, adult Z68.41 [place] [id number] [place] [address] 97043- 9970 Apr, Cigarette nicotine dependence without complication F17.210 [place] [id number] [place] [address] 53528- 0031 Apr, Acute bilateral low back pain without sciatica M54.5 [place] [id number] [place] [address] 22495- 1059 Apr, Methamphetamine use disorder, severe, 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 ; Psychosis, unspecified psychosis type F29 ; Personality disorder F60.9 ; Opioid use disorder, moderate, dependence F11.20 and Xanax use disorder, moderate F13.20 [facility] [id number] [place] [address] 99043 -4704 Apr, Wheezing R06.2 and Bronchitis J40 [place] [address] [address] [id number] [place] [address] 23517- 5990 02 Apr, 2017 Bronchitis J40 ; Cigarette nicotine dependence without complication F17.210 and Bipolar disease, chronic F31.9 [place] [id number] [place] [address] 40168- 9833 Mar, Acquired hypothyroidism E03.9 [place] [address] 77459- 7953 Mar, Acquired hypothyroidism E03.9 [place] [address] 35833- 4695 Mar, Orthostatic hypotension I95.1 and Non-intractable vomiting with nausea, unspecified vomiting type R11.[address] 88837- 3789 14 Mar, 2017 Strain of lumbar region, initial encounter S39.012A [place] [address] 24472- 6902 Mar, [facility] [address] [place] [address] 15388 -6015 Mar, Bronchitis J40 [place] [id number] [place] [address] 04213- 3244 05 Mar, 2017 Degenerative joint disease M19.90 ; Elevated LFTs R79.89 ; Adenopathy R59.1 ; Drug use F19.90 ; Pre-diabetes R73.03 and COPD (chronic obstructive pulmonary disease) J44.9 [facility] [address] [id number] [place] [address] 45041 -6618 30 Feb, 2017 Left hand pain M79.642 and Contusion of left hand, initial encounter S60.222A [place] [id number] [place] [address] 46274- 7691 07 Feb, 2017 Body aches R52 and Flu-like symptoms R68.89 [place] [address] [place] [address]- 7115 Jan, [place] [id number] [place] [address] 08649- 7657 Jan, Bipolar disease, chronic F31.9 ; Acquired hypothyroidism E03.9 and Encounter for immunization Z23 [facility] [place] [id number] [place] [address] 38223 -4444 05 Dec, 2016 Crushing injury of left wrist and hand, initial encounter S67.42XA [place] [address] 35454- 9638 Sep, [address] 92497- 5118 Sep, Bipolar disease, chronic F31.9 ; Panic disorder with agoraphobia F40.01 and Proteinuria, unspecified type R80.[address] 27888- 2753 August, [place] [address] 41751- 4198 August, Degenerative joint disease M19.90 ; Left-sided chest wall pain R07.89 ; Bipolar disease, chronic F31.9 ; Type 2 diabetes mellitus without complication, without long-term current use of insulin E11.9 ; Acquired hypothyroidism E03.9 and Acute cystitis without hematuria N30.00 [place] [id number] [place] [address] 07936- 1166 Mar, [place] [id number] [place] [address] 96788- 0215 Feb, [facility] [address] 19017 -3000 Feb, Right hand pain M79.641 [facility] [place] [id number] [place] [address] 23191 -1783 Feb, Bronchitis J40 ; Acute non-recurrent pansinusitis J01.40 and Seasonal allergic rhinitis due to other allergic trigger J30.89 [facility] [address] [address]- 2215 29 Dec, 2015 [facility] [address] -2937 Mar, Left-sided chest wall pain R07.89 and Chronic pain G89.29 [facility] [address] [address]- 8187 Jul, [facility] [address] [facility] [id number], [place] [address]- 8575 Jul, [facility] [id number] [place] [address] 10819- 7244 May, [facility] [id number] [place] [address] 57620- 9190 May, [facility] [id number] [place] [address] 35003- 6444 Apr, [facility] [address], [place] [address]- 6044 Apr, [facility] [address] [place] [address] 11076- 9205 Mar, [facility] [address], [place] [address]- 5996 Mar, [facility] [address], [place] [address]- 6013 Feb, [facility] [address] 5347 Feb, [facility] [id number] [place] [address] 00886338- 7725 Jan, [facility] [address], [place] [address]- 7570 Jan, [facility] [address] [place] [address] 63419- 2099 28 Jan, 2014 [facility] [place] [facility] [address] [id number] [place] [address]- 9804 28 Jan, 2014 [facility] [place] [facility] [address] [id number] [place] [address]- 3360 15 Jan, 2014 [facility] [place] [facility] [address] [id number] [place] [address]- 0570 15 Jan, 2014 [facility] [place] [facility] [address] [id number] [place] [address]- 8859 19 Dec, 2013 [facility] [place] [facility] [address] [id number] [place] [address]- 7849 19 Dec, 2013 [facility] [place] [facility] [address] [id number] [place] [address]- 6260 19 Dec, 2013 [facility] [place] [facility] [address] [id number] [place] [address]- 2694 19 Dec, 2013 [facility] [place] [facility] [address] [id number] [place] [address]- 7950 18 Dec, 2013 [facility] [place] [facility] [address] [id number] [place] [address]- 9720 18 Dec, 2013 [facility] [place] [facility] [address] [id number] [place] [address]- 9128 16 Dec, 2013 [facility] [place] [facility] [address] [id number], [place] [address]- 0261 16 Dec, 2013 [facility] [place] [facility] [address] [id number], [place] [address]- 7683 17 Sep, 2013 [facility] [place] [facility] [address] [id number] [place] [address]- 8609 17 Sep, 2013 [facility] [place] [facility] [address] [id number], [place] [address]- 2513 15 Jul, 2013 [facility] [place] [facility] [address] [id number], [place] [address]- 9434 15 Jul, 2013 [facility] [place] [facility] [address] [id number] [place] [address]- 8760 Jul, [facility] [address] [id number] [place] [address]- 8641 Jul, [facility] [place] [facility] [address] [id number] [place] [address]- 7920 Jul, [facility] [address] [id number] [place] [address]- 0397 Jul, [facility] [place] [facility] [address] [id number] [place] [address]- 7069 Jul, [facility] [address] [id number] [place] [address]- 1758 Jul, [facility] [place] [facility] [address] [id number] [place] [address]- 3621 Jun, [facility] [place] [facility] [address] [id number] [place] [address]- 0812 Jun, [facility] [place] [facility] [address] [id number] [place] [address]- 2429 May, [facility] [place] [facility] [address] [id number] [place] [address]- 8779 May, [facility] [address] [id number] [place] [address]- 9008 May, [facility] [place] [facility] [address] [id number] [place] [address]- 2806 May, [facility] [place] [facility] [address] [id number] [place] [address]- 5096 Apr, [facility] [place] [facility] [address] [id number] [place] [address]- 3186 Apr, [facility] [place] [facility] [address] [id number] [place] [address]- 5160 Mar, [facility] [place] [facility] [address] [id number] [place] [address]- 5380 Mar, [facility] [place] [facility] [address] [id number] [place] [address]- 4884 Feb, [facility] [place] [facility] [address] [id number] [place] [address]- 5449 Feb, [facility] [place] [facility] [address] [id number] [place] [address]- 7093 Feb, [facility] [place] [facility] [address] [id number] [place] [address]- 2000 Feb, [facility] [place] [facility] [address] [id number] [place] [address]- 8804 Jan, [facility] [place] [facility] [address] [id number] [place] [address]- 8803 Jan, [facility] [place] [facility] [address] [id number] [place] [address]- 2386 Jan, [facility] [place] [facility] [address] [id number], [place] [address]- 1456 Jan, [facility] [place] [facility] [address] [id number] [place] [address]- 6422 Jan, [facility] [place] [facility] [address] [id number], [place] [address]- 2994 Dec, [facility] [place] [facility] [address] [id number], [place] [address]- 9242 Dec, [facility] [place] [facility] [address] [id number], [place] [address]- 1500 Nov, [facility] [place] [facility] [address] [id number] [place] [address]- 4343 Sep, [facility] [place] [facility] [address] [id number], [place] [address]- 3176 August, [facility] [place] [facility] [address] [id number] [place] [address]- 2546 August, [facility] [place] [facility] [address] [id number] [place] [address]- 4789 30 Jul, 2012 [facility] [address] [id number] [place] [address]- 4097 Jul, [facility] [address] [id number] [place] [address]- 9155 Jul, [facility] [address] [id number] [place] [address]- 2813 Jul, [facility] [place] [facility] [address] [id number] [place] [address]- 5710 Jul, [facility] [address] [id number] [place] [address]- 1872 Jul, [facility] [address] [id number] [place] [address]- 9791 Jul, [facility] [address] [id number] [place] [address]- 5958 Jun, [facility] [address] [id number] [place] [address]- 6711 Jun, [facility] [address] [id number] [place] [address]- 4712 May, [facility] [address] [id number] [place] [address]- 5262 Apr, [facility] [address] [id number] [place] [address]- 5342 Apr, [facility] [address] [id number] [place] [address]- 8706 Mar, [facility] [place] [facility] [address] [id number] [place] [address]- 5940 Mar, [facility] [place] [facility] [address] [id number] [place] [address]- 5778 Mar, [facility] [address] [id number] [place] [address]- 7765 Feb, [facility] [place] [facility] [address] [id number] [place] [address]- 8610 Feb, [facility] [place] [facility] [address] [id number] [place] [address]- 7515 Feb, [facility] [place] [facility] [address] [id number] [place] [address]- 2376 Feb, [facility] [place] [facility] [address] [id number] [place] [address]- 2164 Feb, [facility] [place] [facility] [address] [id number] [place] [address]- 1878 Feb, [facility] [place] [facility] [address] [id number] [place] [address]- 2476 Feb, [facility] [place] [facility] [address] [id number] [place] [address]- 4690 16 Feb, 2012 [facility] [place] [facility] [address] [id number] [place] [address]- 7790 14 Feb, 2012 [facility] [place] [facility] [address] [id number] [place] [address]- 6523 Feb, [facility] [place] [facility] [address] [id number] [place] [address]- 6888 Feb, [facility] [place] [facility] [address] [id number] [place] [address]- 1960 27 Dec, 2011 [facility] [place] [facility] [address] [id number] [place] [address]- 9890 07 Dec, 2011 [facility] [place] [facility] [address] [id number] [place] [address]- 0761 30 Nov, 2011 [facility] [place] [facility] [address] [id number] [place] [address]- 3476 Nov, [facility] [place] [facility] [address] [id number] [place] [address]- 4957 Oct, [facility] [place] [facility] [address] [id number], [place] [address]- 6656 Oct, [facility] [address] [id number] [place] [address]- 7404 Sep, [facility] [place] [facility] [address] [id number] [place] [address]- 8410 May, [facility] [place] [facility] [address] [id number] [place] [address]- 3236 May, [facility] [place] [facility] [address] [id number] [place] [address]- 0064 May, [facility] [address] [id number] [place] [address]- 6246 Apr, [facility] [place] [facility] [address] [id number] [place] [address]- 7973 Mar, [facility] [address] [id number] [place] [address]- 5132 Mar, [facility] [place] [facility] [address] [id number] [place] [address]- 1460 Feb, [facility] [place] [facility] [address] [facility] [id number] [place] [address]- 5767 Feb, [facility] [place] [facility] [address] [facility] [id number] [place] [address]- 1332 Feb, [facility] [place] [facility] [address] [facility] [id number], [place] [address]- 2413 Jan, [facility] [place] [facility] [address] [id number], [place] [address]- 7056 Jan, [facility] [place] [facility] [address] [id number], [place] [address]- 7021 Dec, [facility] [place] [facility] [address] [id number], [place] [address]- 6907 Mar, [facility] [place] [facility] [address] [id number] [place] [address]- 406[address] Feb, [facility] [place] [facility] [address] [id number], [place] [address] 10 Feb, 2009 [facility] [id number], [place] [address] Feb, [facility] [id number], [place] [address] Jan, [facility] [id number], [place] [address] Dec, [facility] [id number], [place] [address] Nov, [facility] [id number] [place] [address] Sep, [facility] [id number], [place] [address] August, [facility] [id number], [place] [address] May, [facility] [id number], [place] [address] Mar, IMMUNIZATIONS No Known Immunizations SOCIAL HISTORY Never Assessed REASON FOR VISIT Test results PLAN OF CARE VITAL SIGNS MEDICATIONS Unknown [...] left foot swollen, stepped in [facility] 05/02/17
--- OUTSIDE RECORDS SUMMARY | 2017-12-24 02:53 | XMS REPORT ---
Author THIEN Melgar [employer] Address Unknown Phone Unavailable Care Team Providers Care Director Global Strategic Publisher Sales Name Role Phone THIEN STORM CP Unavailable Allergies, Adverse Reactions, Alerts Substance Reaction Event Type Penicillin V Potassium anaphylaxis Drug Allergy Keflex anaphylaxis Drug Allergy Aspirin hives Drug Allergy Problems Problem Type Condition Code Onset Dates Condition Status Problem Nondependent amphetamine or related acting sympathomimetic abuse, unspecified 305.70 Active Problem History of amphetamine dependence/abuse F15.21 Active Problem Encounter for chronic pain management G89.29 Active Assessment Chronic pain G89.29 Active Assessment Left-sided chest wall pain R07.89 Active Problem Chronic pain G89.29 Active Problem Psychosis F29 Active Problem Left-sided chest wall pain R07.89 Active Problem Degenerative joint disease M19.90 Active Problem COPD (chronic obstructive pulmonary disease) J44.9 Active Problem Bipolar disease, chronic F31.9 Active Problem Panic disorder with agoraphobia F40.01 Active Medications Medication Code System Code Instructions Start Date End Date Status Dosage Fluoxetine [facility] [address]-58 40 mg Dec 27, 2013 1 capsule by Oral route 1 time per day for depression and panic Hydrocodone-Acetaminophen NDC [address]-34 5-325 MG Orally every 6 hrs 1 [place] [address]-52 90 mcg/actuation Apr 08, 2013 inhale 2 puff by Inhalation route as needed every 4 hours for breathing Flonase NDC [address]-56 50 mcg/actuation 2 spray(s) intranasally 2 times a day July 18, 2013 1 sprays by Nasal route 2 times per day in each nostril Hydrocodone-Acetaminophen NDC [address]-77 5-325 MG Orally 4 times a day Mar 11, 2015 Mar 13, 2015 1 tablet as needed levothyroxine NDC 0 50 mcg Mar 04, 2013 take 1 tablet (50 mcg) by oral route once daily Procedures Procedure Coding System Code Date Office Visit, Est Pt., Level 3 CPT-4 70425 Mar 11, 2015 Vital Signs Date/Time: Mar 11, 2015 Temperature 98.1 F Weight 228 lbs Height 63 in BMI 40.38 Index Blood Pressure Diastolic 80 mmHg Blood Pressure Systolic 126 mmHg Cardiac Monitoring Heart Rate 90 bpm Results No Known Results Summary Purpose [employer]ClinicalWorks Submission
--- OUTSIDE RECORDS SUMMARY | 2017-12-24 02:53 | XMS REPORT ---
Author Author CESARIO Irizarry Organization [facility] Address [address] [place] [address] Care Team Providers Care Microcomputer Technician Name Role Phone svenMARIA CCESARIO FERNANDEZ Unavailable PROBLEMS Type Condition ICD9-CM Code NSQ02-MX Code Onset Dates Condition Status SNOMED Code Problem Psychosis, unspecified psychosis type F29 Active 89446932 Problem Lumbago with sciatica, left side M54.42 Active 251590267 Problem Personality disorder F60.9 Active 80601681 Problem Right sciatic nerve pain M54.31 Active 24824496 Problem Bipolar disease, chronic F31.9 Active 22074798 Problem Depressive disorder, not elsewhere classified F32.9 Active 84413422 Problem Other chronic pain G89.29 Active 22803347 Problem Lumbago with sciatica, right side M54.41 Active 025793544158748 Problem Morbid (severe) obesity due to excess calories E66.01 Active 56054088429070 Problem Body mass index (BMI) of 40.0-44.9 in adult Z68.41 Active 330766859 Problem Degenerative joint disease M19.90 Active 414268324 Problem Chronic pain G89.29 Active 88886476 Problem COPD (chronic obstructive pulmonary disease) J44.9 Active 47390591 Problem Panic disorder with agoraphobia F40.01 Active 18911794 Problem Cigarette nicotine dependence without complication F17.210 Active 63336038 Problem Xanax use disorder, moderate F13.20 Active 447935985 Problem Acquired hypothyroidism E03.9 Active 267729233 Problem Methamphetamine use disorder, severe, 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 Active 95088574 Problem Pre-diabetes R73.03 Active 864147151 Problem Opioid use disorder, moderate, dependence F11.20 Active 01602263 ALLERGIES Substance Reaction Event Type Date Status Tramadol HCl nausea and vomiting Drug Allergy Dec, Active Penicillin V Potassium anaphylaxis Drug Allergy Dec, Active Keflex anaphylaxis Drug Allergy Dec, Active Ibuprofen Unknown Drug Allergy Dec, Active Aspirin hives Drug Allergy Dec, Active ENCOUNTERS Encounter Location Date Diagnosis [facility] [address] [address] Sep, [facility] [id number] [address] August, [facility] [id number] [place] [address] 68514- 2974 August, [facility] [id number] [place] [address] 92919- 5407 Jul, [facility] [id number] [place] [address] 69225- 7707 Jul, [facility] [id number] [place] [address] 66728- 4914 Jul, [facility] [id number] [place] [address] 29019 -2342 Jul, Right sciatic nerve pain M54.31 [facility] [id number] [place] [address] 45029- 4117 Jul, Acquired hypothyroidism E03.9 [place] [id number] [place] [address] 39888- 8941 Jul, Depressive disorder, not elsewhere classified F32.9 and Psychosis, unspecified psychosis type F29 [facility] [id number] [place] [address] 62391- 7907 Jul, Acquired hypothyroidism E03.9 ; Lumbago with sciatica, right side M54.41 and Lumbar radiculopathy, acute M54.16 [facility] [id number] [place] [address] 21965- 8196 Jul, Methamphetamine use disorder, severe, 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 ; Psychosis, unspecified psychosis type F29 ; Personality disorder F60.9 ; Opioid use disorder, moderate, dependence F11.20 ; Xanax use disorder, moderate F13.20 and BMI 40.0-44.9, adult Z68.41 [place] [id number] [place] [address] 54865- 0688 Jun, Methamphetamine use disorder, severe, 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 ; Psychosis, unspecified psychosis type F29 ; Personality disorder F60.9 ; Opioid use disorder, moderate, dependence F11.20 and Xanax use disorder, moderate F13.20 [place] [id number] [place] [address] 97184- 5602 Jun, Depressive disorder, not elsewhere classified F32.9 and Psychosis, unspecified psychosis type F29 [place] [address] 49145- 8104 Jun, Lumbar radiculopathy, acute M54.16 [place] [id number] [place] [address] 51660- 3917 Jun, Lumbar radiculopathy, acute M54.16 ; Strain of abdominal wall, initial encounter S39.011A and BMI 40.0-44.9, adult Z68.41 [place] [id number] [place] [address] 57367- 3206 Jun, [place] [id number] [place] [address] 43212- 5315 May, [place] [id number] [place] [address] 53509- 1419 May, Methamphetamine use disorder, severe, 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 ; Psychosis, unspecified psychosis type F29 ; Personality disorder F60.9 ; Opioid use disorder, moderate, dependence F11.20 and Xanax use disorder, moderate F13.20 [place] [id number] [place] [address] 45736- 6525 May, [place] [id number] [place] [address] 22976- 5662 May, [place] [id number] [place] [address] 59996- 1940 May, Lumbago with sciatica, left side M54.42 ; Lumbago with sciatica, right side M54.41 ; Other chronic pain G89.29 ; Weight gain R63.5 ; Acquired hypothyroidism E03.9 and BMI 40.0-44.9, adult Z68.41 [place] [address] 94310- 558 Apr, Cigarette nicotine dependence without complication F17.210 [place] [address] 09472- 2496 Apr, Acute bilateral low back pain without sciatica M54.[address] 85566- 9983 Apr, Methamphetamine use disorder, severe, 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 ; Psychosis, unspecified psychosis type F29 ; Personality disorder F60.9 ; Opioid use disorder, moderate, dependence F11.20 and Xanax use disorder, moderate F13.20 [facility] [id number] [place] [address] 74660 -1959 Apr, Wheezing R06.2 and Bronchitis J40 [address] 46148- 3865 Apr, Bronchitis J40 ; Cigarette nicotine dependence without complication F17.210 and Bipolar disease, chronic F31.9 [place] [id number] [place] [address] 91510- 9919 Mar, Acquired hypothyroidism E03.9 [place] [address] 65087- 7316 Mar, Acquired hypothyroidism E03.9 [place] [address] 36128- 2724 Mar, Orthostatic hypotension I95.1 and Non-intractable vomiting with nausea, unspecified vomiting type R11.2 [place] [address] 87833- 8148 14 Mar, 2017 Strain of lumbar region, initial encounter S39.012A [place] [id number] [place] [address] 77600- 4889 Mar, [facility] [address] [address]68 -5256 Mar, Bronchitis J40 [address] 20305- 7853 05 Mar, 2017 Degenerative joint disease M19.90 ; Elevated LFTs R79.89 ; Adenopathy R59.1 ; Drug use F19.90 ; Pre-diabetes R73.03 and COPD (chronic obstructive pulmonary disease) J44.9 [facility] [place] [address] 17866 -6713 Feb, Left hand pain M79.642 and Contusion of left hand, initial encounter S60.222A [address] 13392- 9265 Feb, Body aches R52 and Flu-like symptoms R68.[address] 25271- 5797 Jan, [address] 37707- 9668 Jan, Bipolar disease, chronic F31.9 ; Acquired hypothyroidism E03.9 and Encounter for immunization Z23 [facility] [id number] [place] [address] 78995 -2241 Dec, Crushing injury of left wrist and hand, initial encounter S67.42XA [address] 34444- 4885 Sep, [address] 59209- 4575 Sep, Bipolar disease, chronic F31.9 ; Panic disorder with agoraphobia F40.01 and Proteinuria, unspecified type R80.9 [place] [id number] [place] [address] 59567- 2150 August, [place] [address] 63915- 2876 August, Degenerative joint disease M19.90 ; Left-sided chest wall pain R07.89 ; Bipolar disease, chronic F31.9 ; Type 2 diabetes mellitus without complication, without long-term current use of insulin E11.9 ; Acquired hypothyroidism E03.9 and Acute cystitis without hematuria N30.00 [place] [address] 08727- 0339 Mar, [place] [address] 45650- 1139 Feb, [facility] [place] [address] 47798 -3219 Feb, Right hand pain M79.641 [facility] [address] 79323 -7919 Feb, Bronchitis J40 ; Acute non-recurrent pansinusitis J01.40 and Seasonal allergic rhinitis due to other allergic trigger J30.89 [place] [id number] [place] [address] 23637- 8538 Dec, [facility] [place] [id number] [place] [address] 17318 -4621 Mar, Left-sided chest wall pain R07.89 and Chronic pain G89.29 [place] [id number] [place] [address] 17451- 3651 Jul, [place] [address] 03115- 0725 Jul, [place] [address] 94391- 8215 May, [place] [address] 92052- 6205 May, [facility] [place] [facility] [address] [id number] [place] [address] Apr, [facility] [place] [facility] [address] [id number] [place] [address]- 2133 Apr, [facility] [place] [facility] [address] [id number] [place] [address]87 Mar, [facility] [place] [facility] [address] [id number] [place] [address]- 9481 Mar, [facility] [place] [facility] [address] [id number] [place] [address]25 Feb, [facility] [place] [facility] [address] [id number] [place] [address]- 0658 Feb, [facility] [place] [facility] [address] [id number] [place] [address]- 1782 Jan, [facility] [place] [facility] [address] [id number] [place] [address]- 8123 Jan, [facility] [place] [facility] [address] [id number] [place] [address]- 1003 Jan, [facility] [place] [facility] [address] [id number] [place] [address]- 9641 Jan, [facility] [place] [facility] [address] [id number] [place] [address]- 1491 Jan, [facility] [place] [facility] [address] [id number] [place] [address]- 0499 15 Jan, 2014 [facility] [place] [facility] [address] [id number] [place] [address]- 9178 Dec, [facility] [place] [facility] [address] [id number] [place] [address]- 7869 Dec, [facility] [place] [facility] [address] [id number] [place]- 7696 Dec, [facility] [place] [facility] [address] [id number] [place] [address]- 0503 19 Dec, 2013 [facility] [place] [facility] [address] [id number] [place] [address]- 4103 18 Dec, 2013 [facility] [place] [facility] [address] [id number] [place] [address]- 0710 18 Dec, 2013 [facility] [place] [facility] [address] [id number] [place] [address]- 3865 16 Dec, 2013 [facility] [place] [facility] [address] [id number] [place] [address]- 9008 16 Dec, 2013 [facility] [place] [facility] [address] [id number] [place] [address]- 7167 17 Sep, 2013 [facility] [place] [facility] [address] [id number] [place] [address]- 5569 17 Sep, 2013 [facility] [place] [facility] [address] [id number] [place] [address]- 1506 15 Jul, 2013 [facility] [place] [facility] [address] [id number] [place] [address]- 8806 15 Jul, 2013 [facility] [place] [facility] [address] [id number] [place] [address]- 6525 10 Jul, 2013 [facility] [place] [facility] [address] [id number] [place] [address]- 9905 10 Jul, 2013 [facility] [place] [facility] [address] [id number] [place] [address]- 9989 Jul, [facility] [place] [facility] [address] [id number] [place] [address]- 7646 Jul, [facility] [place] [facility] [address] [id number] [place] [address]- 1629 Jul, [facility] [place] [facility] [address] [id number] [place] [address]- 1348 Jul, [facility] [place] [facility] [address] [id number] [place] [address]- 7120 Jun, [facility] [place] [facility] [address] [id number] [place] [address]- 5175 Jun, [facility] [place] [facility] [address] [id number] [place] [address]- 7436 May, [facility] [place] [facility] [address] [id number] [place] [address]- 8548 May, [facility] [place] [facility] [address] [id number] [place] [address]- 2174 May, [facility] [place] [facility] [address] [id number] [place] [address]- 8366 May, [facility] [place] [facility] [address] [id number] [place] [address]- 0748 Apr, [facility] [place] [facility] [address] [id number] [place] [address]- 7390 Apr, [facility] [place] [facility] [address] [id number] [place] [address]- 1325 Mar, [facility] [place] [facility] [address] [id number] [place] [address]- 8854 Mar, [facility] [place] [facility] [address] [id number] [place] [address]- 4144 Feb, [facility] [place] [facility] [address] [facility] [id number] [place] [address]- 9637 Feb, [facility] [place] [facility] [address] [id number] [address]- 5562 Feb, [facility] [place] [facility] [address] [id number] [place] [address]- 2207 Feb, [facility] [place] [facility] [address] [id number] [place] [address] Jan, [facility] [place] [facility] [address] [id number], [place] [address]- 7880 Jan, [facility] [place] [facility] [address] [id number], [place] [address]- 9922 Jan, [facility] [address] [id number] [place] [address]- 1830 Jan, [facility] [place] [facility] [address] [id number] [place] 2386 Jan, [facility] [address] [id number] [place] [address]- 8171 Dec, [facility] [place] [facility] [address] [id number] [place] [address]- 8347 Dec, [facility] [address] [id number] [place] [address]- 9344 Nov, [facility] [place] [facility] [address] [id number] [place] [address]- 8559 Sep, [facility] [address] [id number] [place] [address]- 0770 August, [facility] [place] [facility] [address] [id number] [place] [address]- 3633 August, [facility] [address] [id number] [place] [address]- 5893 Jul, [facility] [place] [facility] [address] [id number] [place] [address]- 3389 Jul, [facility] [place] [facility] [address] [id number], [place] [address]- 3061 Jul, [facility] [place] [facility] [address] [id number], [place] [address]- 5562 Jul, [facility] [place] [facility] [address] [id number] [place] [address]- 9414 Jul, [facility] [place] [facility] [address] [id number] [place] [address]- 6569 Jul, [facility] [place] [facility] [address] [id number] [place] [address]- 0321 Jul, [facility] [place] [facility] [address] [id number] [place] [address]- 1679 Jun, [facility] [address] [id number] [place] [address]- 1297 Jun, [facility] [place] [facility] [address] [id number] [place] [address]- 7236 May, [facility] [address] [id number] [place] [address]- 3095 Apr, [facility] [address] [id number] [place] [address]- 6311 Apr, [facility] [address] [id number] [place] [address]- 3020 Mar, [facility] [address] [id number] [place] [address]- 7480 Mar, [facility] [address] [id number] [place] [address]- 2782 Mar, [facility] [address] [id number] [place] [address]- 1998 Feb, [facility] [address] [id number] [place] [address]- 1144 Feb, [facility] [address] [id number] [place] [address]- 1816 Feb, [facility] [address] [id number] [place] [address]- 6427 Feb, [facility] [place] [facility] [address] [id number] [place] [address]- 1213 Feb, [facility] [place] [facility] [address] [id number] [place] [address]- 9410 Feb, [facility] [place] [facility] [address] [id number] [place] [address]- 4616 Feb, [facility] [place] [facility] [address] [id number] [place] [address]- 0527 Feb, [facility] [place] [facility] [address] [id number] [place] [address]- 4268 14 Feb, 2012 [facility] [place] [facility] [address] [id number] [place] [address]- 0121 Feb, [facility] [place] [facility] [address] [id number] [place] [address]- 3367 Feb, [facility] [place] [facility] [address] [id number] [place] [address]- 9144 Dec, [facility] [place] [facility] [address] [id number] [place] [address]- 9787 Dec, [facility] [place] [facility] [address] [id number] [place] [address]- 2079 30 Nov, 2011 [facility] [place] [facility] [address] [id number] [place] [address]- 3139 Nov, [facility] [place] [facility] [address] [id number] [place] [address]- 1915 Oct, [facility] [place] [facility] [address] [id number] [place] [address]- 3172 Oct, [facility] [place] [facility] [address] [id number] [place] [address]- 4022 Sep, [facility] [place] [facility] [address] [id number] [place] [address]- 1357 May, [facility] [place] [facility] [address] [id number] [place] [address]- 0900 May, [facility] [place] [facility] [address] [id number] [place] [address]- 5769 May, [facility] [place] [facility] [address] [id number] [place] [address]- 8588 Apr, [facility] [place] [facility] [address] [id number] [place] [address]- 7827 Mar, [facility] [place] [facility] [address] [id number] [place] [address]- 2673 02 Mar, 2011 [facility] [place] [facility] [address] [id number] [place] [address]- 7307 Feb, [facility] [place] [facility] [address] [id number] [place] [address]- 5499 Feb, [facility] [place] [facility] [address] [id number] [place] [address]- 5113 Feb, [facility] [place] [facility] [address] [id number] [place] [address]- 9272 14 Jan, 2011 [facility] [place] [facility] [address] [id number] [place] [address]- 5990 14 Jan, 2011 [facility] [place] [facility] [address] [id number] [place] [address]- 6370 Dec, [facility] [place] [facility] [address] [id number] [place] [address]- 9122 Mar, [facility] [place] [facility] [address] [id number] [place] [address]- 3430 Feb, [facility] [place] [facility] [address] [id number] [place] [address]- 8581 Feb, [facility] [place] [facility] [address] [facility] [id number] [place] [address]- 8920 Feb, [facility] [place] [facility] [address] [id number] [place] [address]- 7020 Jan, [facility] [place] [facility] [address] [id number] [place] [address]- 6787 16 Dec, 2008 [facility] [place] [facility] [address] [id number] [place] [address]- 2894 Nov, [facility] [place] [facility] [address] [id number] [place] [address]- 1788 Sep, [facility] [place] [facility] [address] [id number] [place] [address]- 7989 August, [facility] [address] [facility] [id number] [place] [address] 9188 May, [facility] [address] [facility] [id number] [place] [address]- 1386 Mar, IMMUNIZATIONS No Known Immunizations SOCIAL HISTORY Never Assessed REASON FOR VISIT injured left hand- otilio hammer fell on it yesterday JStrasserRN PLAN OF CARE Activity Details Follow Up prn Reason: VITAL SIGNS Height 63 in 2016-12-13 Weight 204.6 lbs 2016-12-13 Temperature 97.2 degrees Fahrenheit 2016-12-13 Heart Rate 70 bpm 2016-12-13 Respiratory Rate 22 2016-12-13 BMI 36.24 kg/m2 2016-12-13 Blood pressure systolic 110 mmHg 2016-12-13 Blood pressure diastolic 80 mmHg 2016-12-13 MEDICATIONS Medication Instructions Dosage Frequency Start Date End Date Duration Status Synthroid 50 mcg Orally Once a day 1 tablet on an empty stomach in the morning 24h August, 30 day(s) Active MetFORMIN HCl ER 500 mg Orally twice a day 1 tablet with evening meal 12h August, 30 day(s) Active Lisinopril 5 mg Orally Once a day 1 tablet 24h Sep, 90 days Active Naprosyn 500 MG Orally every 12 hrs 1 tablet as needed 12h Dec, Jan, 30 days Active Fluoxetine 40 mg Orally Once a day 1 capsule in the morning 24h August, Active EpiPen 0.3 mg/0.3ml Injection once as directed Sep, 1 dose Active Alprazolam 1 MG Orally Twice a day 1 tablet 12h Active RESULTS No Results PROCEDURES Procedure Date Ordered Result Body Site X-RAY EXAM OF HAND Dec 13, 2016 INSTRUCTIONS MEDICATIONS ADMINISTERED No Known Medications MEDICAL [...] Hospitalization History left foot swollen, stepped in Count includes the [facility] ER 05/02/17
--- OUTSIDE RECORDS SUMMARY | 2017-12-24 02:54 | XMS REPORT ---
Author Author YOGESH DALTON [facility] Address [address] [place] [address] Care Team Providers Care Circuit Board Repair Technician Name Role Phone YOGESH DALTON Unavailable PROBLEMS Type Condition ICD9-CM Code HMP61-DR Code Onset Dates Condition Status SNOMED Code Problem Psychosis, unspecified psychosis type F29 Active 18614786 Problem Lumbago with sciatica, left side M54.42 Active 068532534 Problem Personality disorder F60.9 Active 14660225 Problem Right sciatic nerve pain M54.31 Active 36788321 Problem Bipolar disease, chronic F31.9 Active 48603137 Problem Depressive disorder, not elsewhere classified F32.9 Active 36490659 Problem Other chronic pain G89.29 Active 89137402 Problem Lumbago with sciatica, right side M54.41 Active [id number] Problem Morbid (severe) obesity due to excess calories E66.01 Active 89654925331235 Problem Body mass index (BMI) of 40.0-44.9 in adult Z68.41 Active 406307438 Problem Degenerative joint disease M19.90 Active 164523934 Problem Chronic pain G89.29 Active 32080563 Problem COPD (chronic obstructive pulmonary disease) J44.9 Active 83338592 Problem Panic disorder with agoraphobia F40.01 Active 89450691 Problem Cigarette nicotine dependence without complication F17.210 Active 29913092 Problem Xanax use disorder, moderate F13.20 Active 391746520 Problem Acquired hypothyroidism E03.9 Active 568274151 Problem Methamphetamine use disorder, severe, 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 Active 37411193 Problem Pre-diabetes R73.03 Active 991003238 Problem Opioid use disorder, moderate, dependence F11.20 Active 97054908 ALLERGIES Substance Reaction Event Type Date Status Tramadol HCl nausea and vomiting Drug Allergy Mar, Active Penicillin V Potassium anaphylaxis Drug Allergy Mar, Active Keflex anaphylaxis Drug Allergy Mar, Active Ibuprofen Unknown Drug Allergy Mar, Active Aspirin hives Drug Allergy Mar, Active ENCOUNTERS Encounter Location Date Diagnosis [facility] [address] [address] Sep, [facility] [id number] [address] Sep, [facility] [id number] [place] [address]- 0597 August, [facility] [id number] [place] [address]01- 6241 August, Depressive disorder, not elsewhere classified F32.9 and Psychosis, unspecified psychosis type F29 [facility] [id number] [place] [address] 41032- 3500 August, [facility] [id number] [place] [address] 96354- 0589 August, Lumbago with sciatica, right side M54.41 and Other chronic pain G89.29 [facility] [id number] [place] [address]805 -9598 Jul, Right sciatic nerve pain M54.31 [facility] [id number] [place] [address] 55650- 8519 Jul, Acquired hypothyroidism E03.9 [facility] [id number] [place] [address] 14291- 6355 Jul, Depressive disorder, not elsewhere classified F32.9 and Psychosis, unspecified psychosis type F29 [facility] [address] [address] Jul, Acquired hypothyroidism E03.9 ; Lumbago with sciatica, right side M54.41 and Lumbar radiculopathy, acute M54.16 [facility] [address] [address] Jul, Methamphetamine use disorder, severe, 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 ; Psychosis, unspecified psychosis type F29 ; Personality disorder F60.9 ; Opioid use disorder, moderate, dependence F11.20 ; Xanax use disorder, moderate F13.20 and BMI 40.0-44.9, adult Z68.41 [facility] [id number] [place] [address] 11620- 6829 Jun, Methamphetamine use disorder, severe, 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 ; Psychosis, unspecified psychosis type F29 ; Personality disorder F60.9 ; Opioid use disorder, moderate, dependence F11.20 and Xanax use disorder, moderate F13.20 [facility] [id number] [place] [address] 38378- 0453 Jun, Depressive disorder, not elsewhere classified F32.9 and Psychosis, unspecified psychosis type F29 [facility] [id number] [place] [address] 32515- 6623 Jun, Lumbar radiculopathy, acute M54.[address] [address]- [address] Jun, Lumbar radiculopathy, acute M54.16 ; Strain of abdominal wall, initial encounter S39.011A and BMI 40.0-44.9, adult Z68.41 [facility] [id number] [place] [address] 42225- 3267 Jun, [facility] [id number] [place] [address] 28450- 3177 May, [facility] [id number] [place] [address] 94385- 3404 May, Methamphetamine use disorder, severe, 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 ; Psychosis, unspecified psychosis type F29 ; Personality disorder F60.9 ; Opioid use disorder, moderate, dependence F11.20 and Xanax use disorder, moderate F13.20 [facility] [id number] [place] [address] 86175- 1157 May, [facility] [id number] [place] [address] 57344- 6562 May, [facility] [id number] [place] [address] 63292- 0356 May, Lumbago with sciatica, left side M54.42 ; Lumbago with sciatica, right side M54.41 ; Other chronic pain G89.29 ; Weight gain R63.5 ; Acquired hypothyroidism E03.9 and BMI 40.0-44.9, adult Z68.41 [place] [address] 585855- 3988 Apr, Cigarette nicotine dependence without complication F17.[address] [address]2110- 5427 Apr, Acute bilateral low back pain without sciatica M54.5 [facility] [facility] [address] 71094- 8911 Apr, Methamphetamine use disorder, severe, 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 ; Psychosis, unspecified psychosis type F29 ; Personality disorder F60.9 ; Opioid use disorder, moderate, dependence F11.20 and Xanax use disorder, moderate F13.20 [facility] [id number] [place] [address] 27100 -8845 Apr, Wheezing R06.2 and Bronchitis J40 [place] [id number] [place] [address] 30725- 1614 Apr, Bronchitis J40 ; Cigarette nicotine dependence without complication F17.210 and Bipolar disease, chronic F31.9 [facility] [id number] [place] [address] 70554- 4272 Mar, Acquired hypothyroidism E03.9 [place] [address] 46836- 0687 Mar, Acquired hypothyroidism E03.9 [facility] [id number] [place] [address] 33981- 8907 Mar, Orthostatic hypotension I95.1 and Non-intractable vomiting with nausea, unspecified vomiting type R11.2 [facility] [id number] [place] [address] 47923- 4952 14 Mar, 2017 Strain of lumbar region, initial encounter S39.012A [facility] [facility] [id number] [place] [address] 14630- 4345 11 Mar, 2017 [facility] [address] [address]57 Mar, Bronchitis J40 [address] [address]- 6476 05 Mar, 2017 Degenerative joint disease M19.90 ; Elevated LFTs R79.89 ; Adenopathy R59.1 ; Drug use F19.90 ; Pre-diabetes R73.03 and COPD (chronic obstructive pulmonary disease) J44.9 [facility] [address] [address] 30 Feb, 2017 Left hand pain M79.642 and Contusion of left hand, initial encounter S60.222A [address] [address]- 1357 Feb, Body aches R52 and Flu-like symptoms R68.89 [place] [id number] [place] [address] 94839- 5633 Jan, [address] 94147- 2323 Jan, Bipolar disease, chronic F31.9 ; Acquired hypothyroidism E03.9 and Encounter for immunization Z23 [facility] [place] [address] [address]56 05 Dec, 2016 Crushing injury of left wrist and hand, initial encounter S67.42XA [address] 95542- 4523 Sep, [address] 84963- 4307 Sep, Bipolar disease, chronic F31.9 ; Panic disorder with agoraphobia F40.01 and Proteinuria, unspecified type R80.[address] 04002- 6753 August, [place] [address] 90569- 6971 August, Degenerative joint disease M19.90 ; Left-sided chest wall pain R07.89 ; Bipolar disease, chronic F31.9 ; Type 2 diabetes mellitus without complication, without long-term current use of insulin E11.9 ; Acquired hypothyroidism E03.9 and Acute cystitis without hematuria N30.[address] 43265- 4059 Mar, [address] 78755- 1753 Feb, [facility] [place] [address] [address]82 Feb, Right hand pain M79.641 [facility] [place] [address] [address]58 -[address]47 Feb, Bronchitis J40 ; Acute non-recurrent pansinusitis J01.40 and Seasonal allergic rhinitis due to other allergic trigger J30.[address] 6[address]49- 3413 Dec, [facility] [place] [address] [address]863 Mar, Left-sided chest wall pain R07.89 and Chronic pain G89.[address] 69551- 0728 Jul, [place] [address] 98792- 3251 Jul, [address] 10184- 5644 May, [facility] [place] [facility] [address] [id number] [place] [address]- 6538 May, [facility] [place] [facility] [address] [id number] [place] [address]- 6035 Apr, [facility] [place] [facility] [address] [id number] [place] [address]- 6315 Apr, [facility] [place] [facility] [address] [id number] [place] [address]- 5437 Mar, [facility] [place] [facility] [address] [id number] [place] [address]- 7477 Mar, [facility] [place] [facility] [address] [id number] [place] [address]- 0851 Feb, [facility] [place] [facility] [address] [id number] [place] [address]- 5039 Feb, [facility] [place] [facility] [address] [id number] [place] [address]- 1427 Jan, [facility] [place] [facility] [address] [id number] [place] [address]- 6672 Jan, [facility] [place] [facility] [address] [id number] [place] [address]- 6780 Jan, [facility] [place] [facility] [address] [id number] [place] [address]- 9972 Jan, [facility] [place] [facility] [address] [id number] [address]- 0770 Jan, [facility] [place] [facility] [address] [id number] [place] [address]- 6430 Jan, [facility] [place] [facility] [address] [id number] [address]- 2818 Dec, [facility] [place] [facility] [address] [id number] [place] [address]- 2212 Dec, [facility] [place] [facility] [address] [id number] [place] [address]- 3867 19 Dec, 2013 [facility] [place] [facility] [address] [id number] [place] [address]- 9207 19 Dec, 2013 [facility] [place] [facility] [address] [id number] [place] [address]- 9762 18 Dec, 2013 [facility] [place] [facility] [address] [id number] [place] [address]- 1249 18 Dec, 2013 [facility] [place] [facility] [address] [id number] [place] [address]- 5238 16 Dec, 2013 [facility] [place] [facility] [address] [id number] [place] [address]- 4482 16 Dec, 2013 [facility] [place] [facility] [address] [id number] [place] [address]- 8337 17 Sep, 2013 [facility] [place] [facility] [address] [id number] [place] [address]- 8211 17 Sep, 2013 [facility] [place] [facility] [address] [id number] [place] [address]- 4218 15 Jul, 2013 [facility] [place] [facility] [address] [id number] [place] [address]- 5493 15 Jul, 2013 [facility] [place] [facility] [address] [id number] [place] [address]- 9927 10 Jul, 2013 [facility] [place] [facility] [address] [id number] [place] [address]- 3432 10 Jul, 2013 [facility] [place] [facility] [address] [id number] [place] [address]- 8477 03 Jul, 2013 [facility] [place] [facility] [address] [id number] [place] [address]- 4289 03 Jul, 2013 [facility] [place] [facility] [address] [id number] [place] [address]- 9682 03 Jul, 2013 [facility] [place] [facility] [address] [id number] [place] [address]- 2216 Jul, [facility] [place] [facility] [address] [id number] [place] [address]- 3358 Jun, [facility] [place] [facility] [address] [id number] [place] [address]- 0045 Jun, [facility] [place] [facility] [address] [id number] [place] [address]- 5571 May, [facility] [place] [facility] [address] [id number] [place] [address]- 9875 May, [facility] [place] [facility] [address] [id number] [place] [address]- 4519 May, [facility] [place] [facility] [address] [id number] [place] [address]- 4253 May, [facility] [place] [facility] [address] [id number] [place] [address]- 1115 Apr, [facility] [place] [facility] [address] [id number] [place] [address]- 7428 Apr, [facility] [place] [facility] [address] [id number] [place] [address]- 4582 Mar, [facility] [place] [facility] [address] [id number] [place] [address]- 1191 Mar, [facility] [place] [facility] [address] [facility] [id number] [place] [address]- 4346 Feb, [facility] [place] [facility] [address] [id number] [address]- 9047 Feb, [facility] [place] [facility] [address] [id number] [place] [address]- 2122 Feb, [facility] [place] [facility] [address] [id number] [place] [address]- 0471 Feb, [facility] [place] [facility] [address] [id number] [place] [address]- 4507 Jan, [facility] [place] [facility] [address] [id number] [address]- 0769 Jan, [facility] [address] [id number] [place] [address]- 8456 Jan, [facility] [place] [facility] [address] [id number] [place] [address]- 4765 Jan, [facility] [place] [facility] [address] [id number] [place] [address]- 8473 Jan, [facility] [place] [facility] [address] [id number] [place] [address]- 4831 Dec, [facility] [address] [id number] [place] [address]- 5395 Dec, [facility] [address] [id number] [place] [address]- 5137 Nov, [facility] [address] [id number] [place] [address]- 4793 Sep, [facility] [place] [facility] [address] [id number] [place] [address]- 4852 August, [facility] [address] [id number] [place] [address]- 3992 August, [facility] [place] [facility] [address] [id number] [place] [address]- 9552 Jul, [facility] [place] [facility] [address] [id number] [place] [address]- 5456 Jul, [facility] [place] [facility] [address] [id number] [place] [address]- 7924 Jul, [facility] [place] [facility] [address] [id number] [place] [address]- 3070 Jul, [facility] [place] [facility] [address] [id number] [place] [address]- 2591 Jul, [facility] [place] [facility] [address] [id number] [place] [address]- 8481 Jul, [facility] [place] [facility] [address] [id number] [place] [address]- 4134 Jul, [facility] [address] [id number] [place] [address]- 1125 Jun, [facility] [place] [facility] [address] [id number] [place] [address]- 0386 Jun, [facility] [address] [id number] [place] [address]- 9587 May, [facility] [place] [facility] [address] [id number] [place] [address]- 1339 Apr, [facility] [address] [id number] [place] [address]- 5967 Apr, [facility] [place] [facility] [address] [id number] [place] [address]- 4801 Mar, [facility] [place] [facility] [address] [id number] [place] [address]- 0994 Mar, [facility] [address] [id number] [place] [address]- 3400 Mar, [facility] [place] [facility] [address] [id number] [place] [address]- 2580 Feb, [facility] [address] [id number] [place] [address]- 4613 Feb, [facility] [place] [facility] [address] [id number] [place] [address]- 2090 Feb, [facility] [place] [facility] [address] [id number] [place] [address]- 0120 Feb, [facility] [place] [facility] [address] [id number] [place] [address]- 1326 Feb, [facility] [place] [facility] [address] [id number] [place] [address]- 6366 Feb, [facility] [place] [facility] [address] [id number] [place] 1771 16 Feb, 2012 [facility] [place] [facility] [address] [id number] [place] [address]- 8370 16 Feb, 2012 [facility] [place] [facility] [address] [id number] [place] [address]- 8292 14 Feb, 2012 [facility] [place] [facility] [address] [id number] [place] [address]- 8329 08 Feb, 2012 [facility] [place] [facility] [address] [id number] [place] [address]- 7437 08 Feb, 2012 [facility] [place] [facility] [address] [id number] [place] [address]- 9655 27 Dec, 2011 [facility] [place] [facility] [address] [id number] [place] [address]- 4820 07 Dec, 2011 [facility] [place] [facility] [address] [facility] [id number] [place] [address]- 3239 Nov, [facility] [place] [facility] [address] [id number] [place] [address]- 3064 Nov, [facility] [place] [facility] [address] [id number] [place] [address]- 3165 Oct, [facility] [place] [facility] [address] [id number] [place] [address]- 3584 Oct, [facility] [place] [facility] [address] [id number] [place] [address]- 9823 Sep, [facility] [place] [facility] [address] [id number] [place] [address]- 0768 May, [facility] [place] [facility] [address] [id number] [place] [address]- 1725 May, [facility] [place] [facility] [address] [id number] [place] [address]- 2696 May, [facility] [place] [facility] [address] [facility] [id number] [place] [address] 2546 Apr, [facility] [place] [facility] [address] [id number] [place] [address]- 1951 Mar, [facility] [address] [id number] [place] [address]- 4213 Mar, [facility] [place] [facility] [address] [id number] [place] [address]- 8396 Feb, [facility] [address] [id number] [place] [address]- 2762 Feb, [facility] [place] [facility] [address] [id number] [place] [address]- 5364 Feb, [facility] [address] [id number] [place] [address]- 2551 Jan, [facility] [place] [facility] [address] [id number] [place] [address]- 0721 Jan, [facility] [address] [facility] [id number] [place] [address]- 4258 Dec, [facility] [address] [id number] [place] [address]- 2310 Mar, [facility] [place] [facility] [address] [id number] [place] [address]- 0769 Feb, [facility] [place] [facility] [address] [facility] [id number] [place] [address]- 3710 Feb, [facility] [place] [facility] [address] [id number] [place] [address]- 2247 Feb, [facility] [place] [facility] [address] [facility] [id number] [place] [address]- 9377 20 Jan, 2009 [facility] [place] [facility] [address] [id number] [place] [address]- 1227 16 Dec, 2008 [facility] [place] [facility] [address] [facility] [id number] [place] [address]- 2058 10 Nov, 2008 [facility] [place] [facility] [address] [id number] [place] [address]- 3790 Sep, [facility] [address] [facility] [id number] [place] [address]- 9611 August, [facility] [address] [facility] [id number] [place] [address]- 2136 May, [facility] [address] [facility] [id number] [place] [address]- 2546 Mar, IMMUNIZATIONS No Known Immunizations SOCIAL HISTORY Never Assessed REASON FOR VISIT Transition of Care, discuss previous test results, needs refills--Dawit Dodson MA PLAN OF CARE Activity Details Follow Up Will call after results Reason: VITAL SIGNS Height 63 in 2017-03-14 Weight 194.7 lbs 2017-03-14 Temperature 98.4 degrees Fahrenheit 2017-03-14 Heart Rate 80 bpm 2017-03-14 Respiratory Rate 22 2017-03-14 BMI 34.49 kg/m2 2017-03-14 Blood pressure systolic 108 mmHg 2017-03-14 Blood pressure diastolic 72 mmHg 2017-03-14 MEDICATIONS Medication Instructions Dosage Frequency Start Date End Date Duration Status Womens One Daily - Active ProAir HFA 108 (90 Base) MCG/ACT Inhalation every 6 hrs 2 puffs as needed 6h Mar, Active EpiPen 0.3 mg/0.3ml Injection once as directed Sep, 1 dose Not-Taking Lisinopril 5 mg Orally Once a day 1 tablet 24h Sep, 90 days Active Mobic 15 MG Orally Once a day 1 tablet 24h August, Sep, 30 day(s) Active MetFORMIN HCl ER 500 mg Orally twice a day 1 tablet with evening meal 12h August, 90 days Active Synthroid 50 mcg Orally Once a day 1 tablet on an empty stomach in the morning 24h August, 90 days Active Fluoxetine 40 mg Orally Once a day 1 capsule in the morning 24h August, 90 days Active RESULTS No Results PROCEDURES Procedure Date Ordered Result Body Site OXIMETRY-OVERNIGHT 2017-03-14 N/A GLYCATED HEMOGLOBIN TEST Mar 14, 2017 No Charge Mar 14, 2017 LAB NOT BILLED BY [facility] Mar 14, 2017 VENIPUNCT, ROUTINE* Mar 14, 2017 INSTRUCTIONS MEDICATIONS ADMINISTERED No Known [...] harming, suicide ideat and attempts. Rios Shepherd, [place], [place] last around 2006 Hospitalization History left foot swollen, stepped in [facility] 05/02/17
--- OUTSIDE RECORDS SUMMARY | 2017-12-24 02:54 | XMS REPORT ---
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41 Active 479835468754517 Problem Morbid (severe) obesity due to excess calories E66.01 Active 58582782407703 Problem Body mass index (BMI) of 40.0-44.9 in adult Z68.41 Active 356510919 Problem Degenerative joint disease M19.90 Active 176655307 Problem Chronic pain G89.29 Active 24357634 Problem COPD (chronic obstructive pulmonary disease) J44.9 Active 26533442 Problem Panic disorder with agoraphobia F40.01 Active 51008117 Problem Cigarette nicotine dependence without complication F17.210 Active 69843816 Problem Xanax use disorder, moderate F13.20 Active 446059925 Problem Acquired hypothyroidism E03.9 Active 391157303 Problem Methamphetamine use disorder, severe, 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 ; Psychosis, unspecified psychosis type F29 ; Personality disorder F60.9 ; Opioid use disorder, moderate, dependence F11.20 ; Xanax use disorder, moderate F13.20 and BMI 40.0-44.9, adult Z68.41 [place] [id number] [place] [address] 04974- 8776 Sep, Depressive disorder, not elsewhere classified F32.9 and Psychosis, unspecified psychosis type F29 [place] [id number] [place] [address] 42714- 7881 August, [place] [id number] [place] [address] 26279- 4618 August, Depressive disorder, not elsewhere classified F32.9 and Psychosis, unspecified psychosis type F29 [place] [id number] [place] [address] 53083- 5277 August, [place] [id number] [place] [address] 02585- 0001 August, Lumbago with sciatica, right side M54.41 and Other chronic pain G89.29 [facility] [id number] [place] [address] 38951 -3045 Jul, Right sciatic nerve pain M54.31 [facility] [id number] [place] [address] 84136- 6069 Jul, Acquired hypothyroidism E03.9 [facility] [id number] [place] [address] 03939- 1629 Jul, Depressive disorder, not elsewhere classified F32.9 and Psychosis, unspecified psychosis type F29 [place] [id number] [place] [address] 06154- 4782 Jul, Acquired hypothyroidism E03.9 ; Lumbago with sciatica, right side M54.41 and Lumbar radiculopathy, acute M54.16 [place] [id number] [place] [address] 01180- 4999 Jul, Methamphetamine use disorder, severe, 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 ; Psychosis, unspecified psychosis type F29 ; Personality disorder F60.9 ; Opioid use disorder, moderate, dependence F11.20 ; Xanax use disorder, moderate F13.20 and BMI 40.0-44.9, adult Z68.41 [place] [id number] [place] [address] 95549- 9718 Jun, Methamphetamine use disorder, severe, 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 ; Psychosis, unspecified psychosis type F29 ; Personality disorder F60.9 ; Opioid use disorder, moderate, dependence F11.20 and Xanax use disorder, moderate F13.20 [place] [id number] [place] [address] 37795- 1699 Jun, Depressive disorder, not elsewhere classified F32.9 and Psychosis, unspecified psychosis type F29 [place] [id number] [place] [address] 38648- 4789 Jun, Lumbar radiculopathy, acute M54.16 [place] [id number] [place] [address] 58938- 8217 Jun, Lumbar radiculopathy, acute M54.16 ; Strain of abdominal wall, initial encounter S39.011A and BMI 40.0-44.9, adult Z68.41 [place] [id number] [place] [address] 38440- 4567 Jun, [place] [id number] [place] [address] 91148- 1739 May, [place] [address] [id number] [address]- 7167 May, Methamphetamine use disorder, severe, 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 ; Psychosis, unspecified psychosis type F29 ; Personality disorder F60.9 ; Opioid use disorder, moderate, dependence F11.20 and Xanax use disorder, moderate F13.20 [place] [address] 81648- 8728 May, [place] [address] 75952- 8562 May, [address] [address]68- 3234 May, Lumbago with sciatica, left side M54.42 ; Lumbago with sciatica, right side M54.41 ; Other chronic pain G89.29 ; Weight gain R63.5 ; Acquired hypothyroidism E03.9 and BMI 40.0-44.9, adult Z68.[address] 50481- 9496 Apr, Cigarette nicotine dependence without complication F17.[address] 69370- 3185 Apr, Acute bilateral low back pain without sciatica M54.[address] 19232- 5249 Apr, Methamphetamine use disorder, severe, 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 ; Psychosis, unspecified psychosis type F29 ; Personality disorder F60.9 ; Opioid use disorder, moderate, dependence F11.20 and Xanax use disorder, moderate F13.20 [facility] [address] 86028 -9725 Apr, Wheezing R06.2 and Bronchitis J40 [place] [id number] [place] [address] 48907- 8995 Apr, Bronchitis J40 ; Cigarette nicotine dependence without complication F17.210 and Bipolar disease, chronic F31.9 [place] [address] [place] [address] 68990- 4717 Mar, Acquired hypothyroidism E03.9 [place] [id number] [place] [address] 37187- 2234 Mar, Acquired hypothyroidism E03.9 [place] [id number] [place] [address] 23963- 4372 Mar, Orthostatic hypotension I95.1 and Non-intractable vomiting with nausea, unspecified vomiting type R11.2 [place] [id number] [place] [address] 09154- 3946 Mar, Strain of lumbar region, initial encounter S39.012A [place] [id number] [place] [address] 05416- 1136 Mar, [facility] [id number] [place] [address] 33300 -1586 Mar, Bronchitis J40 [place] [id number] [place] [address] 47834- 0103 Mar, Degenerative joint disease M19.90 ; Elevated LFTs R79.89 ; Adenopathy R59.1 ; Drug use F19.90 ; Pre-diabetes R73.03 and COPD (chronic obstructive pulmonary disease) J44.9 [facility] [place] [id number] [place] [address] 95281 -3759 Feb, Left hand pain M79.642 and Contusion of left hand, initial encounter S60.222A [place] [id number] [place] [address] 87668- 2399 Feb, Body aches R52 and Flu-like symptoms R68.89 [place] [id number] [place] [address] 22833- 7798 Jan, [place] [id number] [place] [address] 24124- 0142 Jan, Bipolar disease, chronic F31.9 ; Acquired hypothyroidism E03.9 and Encounter for immunization Z23 [facility] [address] [address] 05 Dec, 2016 Crushing injury of left wrist and hand, initial encounter S67.42XA [place] [address] 92961- 9266 Sep, [address] 88787- 2393 Sep, Bipolar disease, chronic F31.9 ; Panic disorder with agoraphobia F40.01 and Proteinuria, unspecified type R80.[address] 75714- 0423 August, [place] [address] 84241- 0268 August, Degenerative joint disease M19.90 ; Left-sided chest wall pain R07.89 ; Bipolar disease, chronic F31.9 ; Type 2 diabetes mellitus without complication, without long-term current use of insulin E11.9 ; Acquired hypothyroidism E03.9 and Acute cystitis without hematuria N30.[address] 40638- 1422 Mar, [place] [address] 67761- 1274 Feb, [facility] [address] 03571 -8481 Feb, Right hand pain M79.641 [facility] [address] 13804 -7086 Feb, Bronchitis J40 ; Acute non-recurrent pansinusitis J01.40 and Seasonal allergic rhinitis due to other allergic trigger J30.89 [place] [address] 65847- 8983 Dec, [facility] [address] [place] [address] -1518 Mar, Left-sided chest wall pain R07.89 and Chronic pain G89.29 [facility] [place] [address] [facility] [id number], [place] [address]- 7855 Jul, [facility] [address] [id number] 3604 Jul, [facility] [address] [id number], [place] [address]- 8357 May, [facility] [address] [id number] 2639 May, [facility] [address] [id number], [place] [address]- 1945 Apr, [facility] [address] [id number], [place] [address]- 2783 Apr, [facility] [address] [id number], [place] [address]- 8148 Mar, [facility] [address] [id number], [place] [address]- 8572 Mar, [facility] [address] [id number], [place] [address]- 0747 Feb, [facility] [address] [id number], [place] [address]- 1259 Feb, [facility] [address] [facility] [id number], [place] [address]- 2486 Jan, [facility] [address] [facility] [id number], [place] [address]- 1586 Jan, [facility] [address] [facility] [id number], [place] [address]- 9508 Jan, [facility] [address] [facility] [id number], [place] [address]- 3301 Jan, [facility] [address] [facility] [id number], [place] [address]- 1746 15 Jan, 2014 [facility] [place] [facility] [address] [id number] [place] [address]- 9296 15 Jan, 2014 [facility] [place] [facility] [address] [id number], [place] [address]- 6530 19 Dec, 2013 [facility] [place] [facility] [address] [id number] [place] [address]- 3170 19 Dec, 2013 [facility] [place] [facility] [address] [id number] [place] [address]- 2875 19 Dec, 2013 [facility] [place] [facility] [address] [id number] [place] [address]- 0209 19 Dec, 2013 [facility] [place] [facility] [address] [id number] [place] [address]- 6446 18 Dec, 2013 [facility] [place] [facility] [address] [id number], [place] [address]- 3695 18 Dec, 2013 [facility] [place] [facility] [address] [id number] [place] [address]- 8056 16 Dec, 2013 [facility] [place] [facility] [address] [id number] [place] [address]- 4200 16 Dec, 2013 [facility] [place] [facility] [address] [facility] [id number], [place] [address]- 2236 17 Sep, 2013 [facility] [place] [facility] [address] [id number], [place] [address]- 2159 17 Sep, 2013 [facility] [place] [facility] [address] [id number], [place] [address]- 6811 15 Jul, 2013 [facility] [place] [facility] [address] [id number], [place] [address]- 2402 15 Jul, 2013 [facility] [place] [facility] [address] [facility] [id number], [place] [address]- 3479 10 Jul, 2013 [facility] [place] [facility] [address] [facility] [id number], [place] [address]- 3543 10 Jul, 2013 [facility] [place] [facility] [address] [id number] [place] [address]- 0146 Jul, [facility] [place] [facility] [address] [id number] [place] [address]- 7867 Jul, [facility] [place] [facility] [address] [id number] [place] [address]- 8835 Jul, [facility] [place] [facility] [address] [id number] [place] [address]- 6167 Jul, [facility] [place] [facility] [address] [id number] [place] [address]- 0943 Jun, [facility] [place] [facility] [address] [id number] [place] [address]- 3643 Jun, [facility] [place] [facility] [address] [id number] [place] [address]- 7362 May, [facility] [place] [facility] [address] [id number] [place] [address]- 9559 May, [facility] [place] [facility] [address] [id number] [place] [address]- 7499 May, [facility] [place] [facility] [address] [id number] [place] [address]- 7120 May, [facility] [place] [facility] [address] [id number] [place] [address]- 2535 Apr, [facility] [place] [facility] [address] [id number] [place] [address]- 4874 Apr, [facility] [place] [facility] [address] [id number] [place] [address]- 9927 Mar, [facility] [place] [facility] [address] [id number] [place] [address]- 0475 Mar, [facility] [place] [facility] [address] [id number] [place] [address]- 8316 Feb, [facility] [place] [facility] [address] [id number] [place] [address]- 2546 Feb, [facility] [place] [facility] [address] [id number] [place] [address]- 7165 Feb, [facility] [place] [facility] [address] [id number] [place] [address]- 1722 Feb, [facility] [place] [facility] [address] [id number] [place] [address]- 4989 Jan, [facility] [place] [facility] [address] [id number] [place] [address]- 4321 Jan, [facility] [place] [facility] [address] [id number] [place] [address]- 7622 Jan, [facility] [place] [facility] [address] [id number] [place] [address]- 4356 Jan, [facility] [place] [facility] [address] [id number] [place] [address]- 7176 Jan, [facility] [place] [facility] [address] [id number] [place] [address]- 4813 Dec, [facility] [place] [facility] [address] [id number] [place] [address]- 4049 Dec, [facility] [place] [facility] [address] [id number] [place] [address]- 1375 Nov, [facility] [place] [facility] [address] [id number], [place] [address]- 8902 Sep, [facility] [place] [facility] [address] [id number], [place] [address]- 1755 August, [facility] [place] [facility] [address] [id number] [place] [address]- 8670 August, [facility] [place] [facility] [address] [id number] [place] [address]- 3310 Jul, [facility] [place] [facility] [address] [id number] [place] [address]- 4835 Jul, [facility] [place] [facility] [address] [id number] [place] [address]- 4806 Jul, [facility] [address] [id number] [place] [address]- 4673 Jul, [facility] [address] [id number] [place] [address]- 2156 Jul, [facility] [address] [id number] [place] [address]- 0796 Jul, [facility] [address] [id number] [place] [address]- 4486 Jul, [facility] [address] [id number] [place] [address]- 2543 Jun, [facility] [address] [id number] [place] [address]- 3376 Jun, [facility] [address] [id number] [place] [address]- 3313 May, [facility] [address] [id number] [place] [address]- 1042 Apr, [facility] [address] [id number] [place] [address]- 0429 Apr, [facility] [address] [id number] [place] [address]- 9381 Mar, [facility] [address] [id number] [place] [address]- 0355 Mar, [facility] [address] [id number] [place] [address]- 8196 Mar, [facility] [place] [facility] [address] [id number] [place] [address]- 9550 Feb, [facility] [address] [id number] [place] [address]- 5533 Feb, [facility] [address] [id number] [place] [address]- 5194 Feb, [facility] [place] [facility] [address] [id number] [place] [address]- 9673 Feb, [facility] [place] [facility] [address] [id number] [place] [address]- 7523 Feb, [facility] [place] [facility] [address] [id number] [place] [address]- 1885 Feb, [facility] [place] [facility] [address] [id number] [place] [address]- 0573 Feb, [facility] [place] [facility] [address] [id number] [place] [address]- 5371 Feb, [facility] [place] [facility] [address] [id number] [place] [address]- 6219 Feb, [facility] [place] [facility] [address] [id number] [place] [address]- 4486 Feb, [facility] [place] [facility] [address] [id number] [place] [address]- 6949 Feb, [facility] [place] [facility] [address] [id number] [place] [address]- 3417 Dec, [facility] [place] [facility] [address] [id number] [place] [address]- 5316 Dec, [facility] [place] [facility] [address] [id number] [place] [address]- 1521 Nov, [facility] [place] [facility] [address] [id number] [place] [address]- 5326 Nov, [facility] [place] [facility] [address] [id number] [place] [address]- 0497 Oct, [facility] [place] [facility] [address] [id number] [place] [address]- 3477 Oct, [facility] [place] [facility] [address] [id number] [place] [address]- 8067 Sep, [facility] [place] [facility] [address] [id number] [place] [address]- 0380 28 May, 2011 [facility] [place] [facility] [address] [id number] [place] [address]- 1852 15 May, 2011 [facility] [place] [facility] [address] [id number] [place] [address]- 1403 May, [facility] [place] [facility] [address] [id number] [place] [address]- 3215 Apr, [facility] [place] [facility] [address] [id number] [place] [address]- 0737 Mar, [facility] [place] [facility] [address] [id number] [place] [address]- 3669 Mar, [facility] [place] [facility] [address] [id number] [place] [address]- 0255 Feb, [facility] [place] [facility] [address] [facility] [id number] [place] [address]- 1956 Feb, [facility] [place] [facility] [address] [id number] [place] [address]- 7193 Feb, [facility] [place] [facility] [address] [facility] [id number] [place] [address]- 4664 Jan, [facility] [place] [facility] [address] [facility] [id number] [place] [address]- 7898 Jan, [facility] [place] [facility] [address] [id number] [place] [address]- 7016 Dec, [facility] [place] [facility] [address] [id number], [place] [address]- 3432 Mar, [facility] [place] [facility] [address] [id number] [place] [address]- 5690 Feb, [facility] [place] [facility] [address] [facility] [id number] [place] [address]- 7329 Feb, [facility] [place] [facility] [address] [id number], [place] [address]- 7859 Feb, [facility] [address] [id number], [place] [address]- 2546 Jan, [facility] [address] [id number], [place] [address]- 2546 16 Dec, 2008 [facility] [address]00565[address], [place] [address]- 2546 Nov, [facility] [address]65[address], [place] [address]- 2546 Sep, [facility] [address]65[address], [place] [address]- 2176 August, [facility] [id number], [place] [address] May, [facility] [id number], [place] [address] Mar, IMMUNIZATIONS No Known Immunizations SOCIAL HISTORY Never Assessed REASON FOR VISIT Refill request PLAN OF CARE VITAL SIGNS MEDICATIONS Unknown [...] History left foot swollen, stepped in [facility] 05/02/17
--- OUTSIDE RECORDS SUMMARY | 2017-12-24 02:55 | XMS REPORT ---
Author Author KYLE HENDRIX [facility] Address [address] [place] [address] Care Team Providers Care Ladler Name Role Phone KYLE HENDRIX Unavailable PROBLEMS Type Condition ICD9-CM Code RKX17-DF Code Onset Dates Condition Status SNOMED Code Problem Psychosis, unspecified psychosis type F29 Active 71255395 Problem Lumbago with sciatica, left side M54.42 Active 496763729 Problem Personality disorder F60.9 Active 30930392 Problem Right sciatic nerve pain M54.31 Active 11274098 Problem Bipolar disease, chronic F31.9 Active 76448440 Problem Depressive disorder, not elsewhere classified F32.9 Active 61535808 Problem Other chronic pain G89.29 Active 72869343 Problem Lumbago with sciatica, right side M54.41 Active 532939913790946 Problem Morbid (severe) obesity due to excess calories E66.01 Active 54685789081050 Problem Body mass index (BMI) of 40.0-44.9 in adult Z68.41 Active 732776564 Problem Degenerative joint disease M19.90 Active 870270544 Problem Chronic pain G89.29 Active 17053175 Problem COPD (chronic obstructive pulmonary disease) J44.9 Active 46290479 Problem Panic disorder with agoraphobia F40.01 Active 83903014 Problem Cigarette nicotine dependence without complication F17.210 Active 69233763 Problem Xanax use disorder, moderate F13.20 Active 090111796 Problem Acquired hypothyroidism E03.9 Active 306145357 Problem Methamphetamine use disorder, severe, 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 Active 02473111 Problem Pre-diabetes R73.03 Active 112183568 Problem Opioid use disorder, moderate, dependence F11.20 Active 31118459 ALLERGIES No Information ENCOUNTERS Encounter Location Date Diagnosis [facility] [id number] [address] Sep, [facility] [address] [id number], [place] [address] Sep, [facility] [id number] [place] [address] 85904- 5359 August, [facility] [id number] [place] [address] 43445- 9840 August, Depressive disorder, not elsewhere classified F32.9 and Psychosis, unspecified psychosis type F29 [place] [facility] [id number] [place] [address] 47614- 9224 August, [place] [facility] [id number] [place] [address] 53755- 9949 August, Lumbago with sciatica, right side M54.41 and Other chronic pain G89.29 [facility] [id number] [place] [address] 96452 -4305 Jul, Right sciatic nerve pain M54.31 [place] [id number] [place] [address] 48333- 0827 Jul, Acquired hypothyroidism E03.9 [place] [facility] [id number] [place] [address] 81776- 9798 Jul, Depressive disorder, not elsewhere classified F32.9 and Psychosis, unspecified psychosis type F29 [place] [id number] [place] [address] 48071- 0326 Jul, Acquired hypothyroidism E03.9 ; Lumbago with sciatica, right side M54.41 and Lumbar radiculopathy, acute M54.16 [place] [id number] [place] [address] 56134- 7240 Jul, Methamphetamine use disorder, severe, 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 ; Psychosis, unspecified psychosis type F29 ; Personality disorder F60.9 ; Opioid use disorder, moderate, dependence F11.20 ; Xanax use disorder, moderate F13.20 and BMI 40.0-44.9, adult Z68.41 [place] [facility] [id number] [place] [address] 62184- 8769 Jun, Methamphetamine use disorder, severe, 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 ; Psychosis, unspecified psychosis type F29 ; Personality disorder F60.9 ; Opioid use disorder, moderate, dependence F11.20 and Xanax use disorder, moderate F13.20 [facility] [id number] [place] [address] 15139- 5837 Jun, Depressive disorder, not elsewhere classified F32.9 and Psychosis, unspecified psychosis type F29 [place] [id number] [place] [address] 77775- 9912 Jun, Lumbar radiculopathy, acute M54.16 [place] [id number] [place] [address] 716276- 2237 Jun, Lumbar radiculopathy, acute M54.16 ; Strain of abdominal wall, initial encounter S39.011A and BMI 40.0-44.9, adult Z68.41 [place] [id number] [place] [address] 47845- 2944 Jun, [facility] [facility] [id number] [place] [address] 88757- 1129 May, [place] [facility] [id number] [place] [address] 19694- 6744 May, Methamphetamine use disorder, severe, 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 ; Psychosis, unspecified psychosis type F29 ; Personality disorder F60.9 ; Opioid use disorder, moderate, dependence F11.20 and Xanax use disorder, moderate F13.20 [place] [id number] [place] [address] 27409- 5744 May, [place] [facility] [id number] [place] [address] 39642- 9208 May, [facility] [id number] [place] [address] 51797- 1257 May, Lumbago with sciatica, left side M54.42 ; Lumbago with sciatica, right side M54.41 ; Other chronic pain G89.29 ; Weight gain R63.5 ; Acquired hypothyroidism E03.9 and BMI 40.0-44.9, adult Z68.41 [place] [id number] [place] [address] 99525- 6875 Apr, Cigarette nicotine dependence without complication F17.210 [place] [address] 13092- 6427 Apr, Acute bilateral low back pain without sciatica M54.5 [place] [address] 80104- 1001 Apr, Methamphetamine use disorder, severe, 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 ; Psychosis, unspecified psychosis type F29 ; Personality disorder F60.9 ; Opioid use disorder, moderate, dependence F11.20 and Xanax use disorder, moderate F13.20 [facility] [address] 93860 -1010 Apr, Wheezing R06.2 and Bronchitis J40 [place] [address] 09843- 3560 Apr, Bronchitis J40 ; Cigarette nicotine dependence without complication F17.210 and Bipolar disease, chronic F31.9 [place] [address] 99688- 3037 Mar, Acquired hypothyroidism E03.9 [place] [id number] [place] [address] 07308- 6367 Mar, Acquired hypothyroidism E03.9 [place] [address] 43546- 8427 Mar, Orthostatic hypotension I95.1 and Non-intractable vomiting with nausea, unspecified vomiting type R11.2 [place] [id number] [place] [address] 23175- 7099 Mar, Strain of lumbar region, initial encounter S39.012A [place] [id number] [place] [address] 87168- 0684 Mar, [facility] [address] 23931 -6596 Mar, Bronchitis J40 [place] [id number] [place] [address] 57375- 7815 05 Mar, 2017 Degenerative joint disease M19.90 ; Elevated LFTs R79.89 ; Adenopathy R59.1 ; Drug use F19.90 ; Pre-diabetes R73.03 and COPD (chronic obstructive pulmonary disease) J44.9 [facility] [address] 90510 -4534 Feb, Left hand pain M79.642 and Contusion of left hand, initial encounter S60.222A [address] [address]37- 0688 Feb, Body aches R52 and Flu-like symptoms R68.89 [place] [id number] [place] [address] 49016- 3547 Jan, [address] 27175- 1642 Jan, Bipolar disease, chronic F31.9 ; Acquired hypothyroidism E03.9 and Encounter for immunization Z23 [facility] [id number] [place] [address] 72615 -2303 Dec, Crushing injury of left wrist and hand, initial encounter S67.42XA [place] [id number] [place] [address] 78688- 2610 Sep, [address] 86762- 1223 Sep, Bipolar disease, chronic F31.9 ; Panic disorder with agoraphobia F40.01 and Proteinuria, unspecified type R80.[address] 57542- 0366 August, [facility] [id number] [place] [address] 31813- 6722 August, Degenerative joint disease M19.90 ; Left-sided chest wall pain R07.89 ; Bipolar disease, chronic F31.9 ; Type 2 diabetes mellitus without complication, without long-term current use of insulin E11.9 ; Acquired hypothyroidism E03.9 and Acute cystitis without hematuria N30.00 [place] [address] 30511- 6522 Mar, [place] [address] 14940- 8633 Feb, [facility] [place] [address] 93561 -6427 Feb, Right hand pain M79.641 [facility] [address] 91415 -9292 Feb, Bronchitis J40 ; Acute non-recurrent pansinusitis J01.40 and Seasonal allergic rhinitis due to other allergic trigger J30.89 [place] [address] 13133- 9657 Dec, [facility] [place] [id number] [place] [address] 77310 -8661 Mar, Left-sided chest wall pain R07.89 and Chronic pain G89.29 [place] [id number] [place] [address] 92174- 6084 Jul, [place] [address] 39296- 6377 Jul, [place] [address] 03737- 4158 May, [place] [address] 19776- 8434 May, [place] [address] 79317- 2546 Apr, [facility] [place] [facility] [address] [id number] [place] [address]- 7605 Apr, [facility] [place] [facility] [address] [id number] [place] [address]- 9658 Mar, [facility] [place] [facility] [address] [id number] [place] [address] Mar, [facility] [place] [facility] [address] [id number] [place] [address]- 5571 Feb, [facility] [place] [facility] [address] [id number] [place] [address]- 1187 Feb, [facility] [place] [facility] [address] [id number] [place] [address]- 7343 Jan, [facility] [place] [facility] [address] [id number] [place] [address]- 3994 Jan, [facility] [place] [facility] [address] [id number] [place] [address]- 2439 Jan, [facility] [place] [facility] [address] [id number] [place] [address]- 8985 28 Jan, 2014 [facility] [place] [facility] [address] [id number] [place] [address]- 0022 Jan, [facility] [place] [facility] [address] [id number] [place] [address]- 6660 15 Jan, 2014 [facility] [place] [facility] [address] [id number] [address]- 8560 19 Dec, 2013 [facility] [place] [facility] [address] [id number] [place] [address]- 7117 19 Dec, 2013 [facility] [place] [facility] [address] [id number] [place] [address]- 4110 19 Dec, 2013 [facility] [place] [facility] [address] [id number] [place] [address]- 1627 19 Dec, 2013 [facility] [place] [facility] [address] [id number] [place] [address]- 8752 18 Dec, 2013 [facility] [address] [id number] [place] [address]- 9912 18 Dec, 2013 [facility] [place] [facility] [address] [id number] [place] [address]- 3662 16 Dec, 2013 [facility] [address] [id number] [place] [address]- 1098 16 Dec, 2013 [facility] [place] [facility] [address] [id number] [place] [address]- 7086 17 Sep, 2013 [facility] [address] [id number] [place] [address]- 3970 17 Sep, 2013 [facility] [address] [id number] [place] [address]- 5490 15 Jul, 2013 [facility] [place] [facility] [address] [id number] [place] [address]- 0590 15 Jul, 2013 [facility] [address] [id number] [place] [address]- 0972 10 Jul, 2013 [facility] [place] [facility] [address] [id number] [place] [address]- 2000 Jul, [facility] [address] [id number] [place] [address]- 3956 Jul, [facility] [place] [facility] [address] [id number] [place] [address]- 3149 Jul, [facility] [place] [facility] [address] [id number] [place] [address]- 2771 Jul, [facility] [place] [facility] [address] [id number] [place] [address]- 1062 Jul, [facility] [place] [facility] [address] [id number] [place] [address]- 3345 Jun, [facility] [place] [facility] [address] [id number] [place] [address]- 5730 Jun, [facility] [address] [id number] [place] [address]- 4229 May, [facility] [place] [facility] [address] [id number] [place] [address]- 9891 May, [facility] [place] [facility] [address] [id number] [place] 5367 May, [facility] [place] [facility] [address] [id number] [place] [address]- 9679 May, [facility] [place] [facility] [address] [id number] [place] [address]- 1230 Apr, [facility] [place] [facility] [address] [id number] [place] [address]- 2064 Apr, [facility] [place] [facility] [address] [id number] [place] [address]- 8074 Mar, [facility] [place] [facility] [address] [id number], [place] [address]- 3015 Mar, [facility] [place] [facility] [address] [id number] [place] [address]- 9809 Feb, [facility] [place] [facility] [address] [id number], [place] [address]- 9407 Feb, [facility] [place] [facility] [address] [id number], [place] [address]- 8584 Feb, [facility] [place] [facility] [address] [id number], [place] [address]- 6234 Feb, [facility] [place] [facility] [address] [id number], [place] [address]- 1364 Jan, [facility] [place] [facility] [address] [id number], [place] [address]- 8292 Jan, [facility] [place] [facility] [address] [facility] [id number], [place] [address]- 7302 Jan, [facility] [place] [facility] [address] [id number] [place] [address]- 2146 Jan, [facility] [address] [id number] [place] [address]- 4948 Jan, [facility] [address] [id number] [place] [address]- 8409 Dec, [facility] [address] [id number] [place] [address]- 7925 Dec, [facility] [address] [id number] [place] [address]- 5791 Nov, [facility] [address] [id number] [place] [address]- 9301 Sep, [facility] [address] [id number] [place] [address]- 6060 August, [facility] [address] [id number] [place] [address]- 3149 August, [facility] [address] [id number] [place] [address]- 6174 Jul, [facility] [address] [id number] [place] [address]- 3578 Jul, [facility] [address] [id number] [place] [address]- 9399 Jul, [facility] [address] [id number] [place] [address]- 4094 Jul, [facility] [place] [facility] [address] [id number] [place] [address]- 5506 Jul, [facility] [place] [facility] [address] [id number] [place] [address]- 6789 Jul, [facility] [place] [facility] [address] [id number] [place] [address]- 2610 Jul, [facility] [address] [id number] [place] [address]- 6499 Jun, [facility] [place] [facility] [address] [id number] [place] [address]- 9854 Jun, [facility] [place] [facility] [address] [id number] [place] [address]- 9644 May, [facility] [place] [facility] [address] [id number] [place] [address]- 0746 Apr, [facility] [place] [facility] [address] [id number] [place] [address]- 6115 Apr, [facility] [address] [id number] [place] [address]- 8007 Mar, [facility] [place] [facility] [address] [id number] [place] [address]- 2852 Mar, [facility] [address] [id number] [place] [address]- 5145 Mar, [facility] [address] [id number] [place] [address]- 7716 Feb, [facility] [place] [facility] [address] [id number] [place] [address]- 1423 Feb, [facility] [place] [facility] [address] [id number] [place] [address]- 7613 Feb, [facility] [place] [facility] [address] [id number] [place] [address]- 6412 Feb, [facility] [place] [facility] [address] [id number] [place] [address]- 7919 Feb, [facility] [place] [facility] [address] [id number] [place] [address]- 7574 Feb, [facility] [place] [facility] [address] [id number] [place] [address]- 8415 Feb, [facility] [place] [facility] [address] [id number] [place] 3810 Feb, [facility] [place] [facility] [address] [id number], [place] [address]- 7467 14 Feb, 2012 [facility] [place] [facility] [address] [id number] [place] [address]- 7077 08 Feb, 2012 [facility] [place] [facility] [address] [id number] [place] [address]- 7245 08 Feb, 2012 [facility] [place] [facility] [address] [id number] [place] [address]- 7963 27 Dec, 2011 [facility] [place] [facility] [address] [id number] [place] [address]- 9615 07 Dec, 2011 [facility] [place] [facility] [address] [id number] [place] [address]- 5364 30 Nov, 2011 [facility] [place] [facility] [address] [id number] [place] [address]- 4986 Nov, [facility] [place] [facility] [address] [id number] [place] [address]- 5851 Oct, [facility] [place] [facility] [address] [id number] [place] [address]- 9477 Oct, [facility] [place] [facility] [address] [id number] [place] [address]- 7763 Sep, [facility] [place] [facility] [address] [id number] [place] [address]- 3686 May, [facility] [place] [facility] [address] [id number] [place] [address]- 7395 15 May, 2011 [facility] [place] [facility] [address] [id number] [place] [address] 2547 May, [facility] [place] [facility] [address] [id number] [place] [address]- 1229 Apr, [facility] [place] [facility] [address] [id number] [place] [address]- 1848 Mar, [facility] [place] [facility] [address] [id number] [place] [address]- 4909 Mar, [facility] [place] [facility] [address] [id number] [place] [address]- 7221 Feb, [facility] [place] [facility] [address] [id number] [place] [address]- 7259 Feb, [facility] [place] [facility] [address] [id number] [place] [address]- 2546 Feb, [facility] [place] [facility] [address] [id number] [place] [address]- 4392 14 Jan, 2011 [facility] [place] [facility] [address] [id number] [place] [address]- 0829 14 Jan, 2011 [facility] [place] [facility] [address] [id number] [place] [address]- 2497 19 Dec, 2010 [facility] [place] [facility] [address] [id number] [place] [address]- 4364 Mar, [facility] [place] [facility] [address] [id number] [place] [address]- 4536 Feb, [facility] [place] [facility] [address] [id number] [place] [address]- 3986 Feb, [facility] [place] [facility] [address] [id number] [place] [address]- 6361 Feb, [facility] [place] [facility] [address] [facility] [id number] [place] [address]- 6539 Jan, [facility] [place] [facility] [address] [id number] [place] [address]- 9652 16 Dec, 2008 [facility] [place] [facility] [address] [id number] [place] [address]- 6214 Nov, [facility] [place] [facility] [address] [id number] [place] [address]- 7687 13 Sep, 2008 [facility] [place] [facility] [address] [id number] [place] [address]- 9196 August, [facility] [place] [facility] [address] [id number] [place] [address] [address]87 May, [facility] [address] [facility] [id number] [place] [address] [address]15 Mar, IMMUNIZATIONS No Known Immunizations SOCIAL HISTORY Never Assessed REASON FOR VISIT Requests return call PLAN OF CARE VITAL SIGNS MEDICATIONS Unknown [...] left foot swollen, stepped in [facility] 05/02/17
--- OUTSIDE RECORDS SUMMARY | 2017-12-24 02:55 | XMS REPORT ---
Author Author YOGESH DALTON [facility] Address [address] [place] [address] Care Team Providers Care Nuclear Operator Name Role Phone YGOESH DALTON Unavailable PROBLEMS Type Condition ICD9-CM Code [id number] Code Onset Dates Condition Status SNOMED Code Problem Psychosis, unspecified psychosis type F29 Active 53559319 Problem Lumbago with sciatica, left side M54.42 Active 689018946 Problem Personality disorder F60.9 Active 43455316 Problem Right sciatic nerve pain M54.31 Active 75347895 Problem Bipolar disease, chronic F31.9 Active 37235518 Problem Depressive disorder, not elsewhere classified F32.9 Active 67450937 Problem Other chronic pain G89.29 Active 53646450 Problem Lumbago with sciatica, right side M54.41 Active 632059235281948 Problem Morbid (severe) obesity due to excess calories E66.01 Active 79622528420791 Problem Body mass index (BMI) of 40.0-44.9 in adult Z68.41 Active 714299789 Problem Degenerative joint disease M19.90 Active 265698198 Problem Chronic pain G89.29 Active 42835592 Problem COPD (chronic obstructive pulmonary disease) J44.9 Active 74365641 Problem Panic disorder with agoraphobia F40.01 Active 74703201 Problem Cigarette nicotine dependence without complication F17.210 Active 33283131 Problem Xanax use disorder, moderate F13.20 Active 440774928 Problem Acquired hypothyroidism E03.9 Active 118920267 Problem Methamphetamine use disorder, severe, 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 Active 93292214 Problem Pre-diabetes R73.03 Active 485196167 Problem Opioid use disorder, moderate, dependence F11.20 Active 60642692 ALLERGIES Substance Reaction Event Type Date Status Tramadol HCl nausea and vomiting Drug Allergy Mar, Active Penicillin V Potassium anaphylaxis Drug Allergy Mar, Active Keflex anaphylaxis Drug Allergy Mar, Active Ibuprofen Unknown Drug Allergy Mar, Active Aspirin hives Drug Allergy Mar, Active ENCOUNTERS Encounter Location Date Diagnosis [facility] [id number] [place] [address] 78669- 0969 Dec, [facility] [id number] [place] [address] 96839- 0571 Oct, [facility] [id number] [place] [address] 62688- 6606 Sep, [facility] [id number] [place] [address] 89892- 2441 Sep, Methamphetamine use disorder, severe, 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 ; Psychosis, unspecified psychosis type F29 ; Personality disorder F60.9 ; Opioid use disorder, moderate, dependence F11.20 ; Xanax use disorder, moderate F13.20 and BMI 40.0-44.9, adult Z68.41 [facility] [id number] [place] [address] 93087- 5256 Sep, Depressive disorder, not elsewhere classified F32.9 and Psychosis, unspecified psychosis type F29 [facility] [id number] [place] [address] 05377- 8283 August, [facility] [id number] [place] [address] 19680- 8008 August, Depressive disorder, not elsewhere classified F32.9 and Psychosis, unspecified psychosis type F29 [facility] [id number] [place] [address] 12365- 7065 August, [facility] [id number] [place] [address] 07601- 9673 August, Lumbago with sciatica, right side M54.41 and Other chronic pain G89.29 [facility] [id number] [place] [address] 41772 -9152 Jul, Right sciatic nerve pain M54.31 [facility] [id number] [place] [address] 29178- 7267 Jul, Acquired hypothyroidism E03.9 [place] [id number] [place] [address] 21138- 4314 Jul, Depressive disorder, not elsewhere classified F32.9 and Psychosis, unspecified psychosis type F29 [place] [facility] [id number] [place] [address] 83525- 6566 Jul, Acquired hypothyroidism E03.9 ; Lumbago with sciatica, right side M54.41 and Lumbar radiculopathy, acute M54.16 [facility] [id number] [place] [address] 31523- 9667 Jul, Methamphetamine use disorder, severe, 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 ; Psychosis, unspecified psychosis type F29 ; Personality disorder F60.9 ; Opioid use disorder, moderate, dependence F11.20 ; Xanax use disorder, moderate F13.20 and BMI 40.0-44.9, adult Z68.41 [facility] [id number] [place] [address] 75226- 7198 Jun, Methamphetamine use disorder, severe, 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 ; Psychosis, unspecified psychosis type F29 ; Personality disorder F60.9 ; Opioid use disorder, moderate, dependence F11.20 and Xanax use disorder, moderate F13.20 [place] [address] [place] [address] 78882- 6645 Jun, Depressive disorder, not elsewhere classified F32.9 and Psychosis, unspecified psychosis type F29 [place] [id number] [place] [address] 21343- 7657 Jun, Lumbar radiculopathy, acute M54.16 [facility] [id number] [place] [address] 99837- 6573 Jun, Lumbar radiculopathy, acute M54.16 ; Strain of abdominal wall, initial encounter S39.011A and BMI 40.0-44.9, adult Z68.41 [facility] [id number] [place] [address] 20287- 0417 Jun, [facility] [id number] [place] [address] 42395- 6627 May, [place] [address] 288365- 7897 May, Methamphetamine use disorder, severe, 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 ; Psychosis, unspecified psychosis type F29 ; Personality disorder F60.9 ; Opioid use disorder, moderate, dependence F11.20 and Xanax use disorder, moderate F13.20 [facility] [id number] [place] [address] 22209- 1330 May, [place] [address] 87474- 6560 May, [facility] [address] 52447- 7956 May, Lumbago with sciatica, left side M54.42 ; Lumbago with sciatica, right side M54.41 ; Other chronic pain G89.29 ; Weight gain R63.5 ; Acquired hypothyroidism E03.9 and BMI 40.0-44.9, adult Z68.41 [facility] [id number] [place] [address] 47856- 7724 Apr, Cigarette nicotine dependence without complication F17.210 [facility] [id number] [place] [address] 73704- 1307 Apr, Acute bilateral low back pain without sciatica M54.5 [facility] [id number] [place] [address] 85144- 7456 Apr, Methamphetamine use disorder, severe, 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 ; Psychosis, unspecified psychosis type F29 ; Personality disorder F60.9 ; Opioid use disorder, moderate, dependence F11.20 and Xanax use disorder, moderate F13.20 [facility] [id number] [place] [address] 50282 -1854 12 Ye, 2018 Wheezing R06.2 and Bronchitis J40 [facility] [place] [id number] [place] [address] 85079- 8026 Apr, Bronchitis J40 ; Cigarette nicotine dependence without complication F17.210 and Bipolar disease, chronic F31.9 [facility] [id number] [place] [address] 47978- 2378 Mar, Acquired hypothyroidism E03.9 [place] [address] 64024- 4270 Mar, Acquired hypothyroidism E03.9 [place] [address] 46053- 2362 Mar, Orthostatic hypotension I95.1 and Non-intractable vomiting with nausea, unspecified vomiting type R11.[address] 08919- 1850 14 Mar, 2017 Strain of lumbar region, initial encounter S39.012A [place] [address] 02810- 7089 Mar, [facility] [address] [place] [address] 22206 -1048 07 Mar, 2017 Bronchitis J40 [place] [address] 04020- 3662 05 Mar, 2017 Degenerative joint disease M19.90 ; Elevated LFTs R79.89 ; Adenopathy R59.1 ; Drug use F19.90 ; Pre-diabetes R73.03 and COPD (chronic obstructive pulmonary disease) J44.9 [facility] [place] [id number] [place] [address] 73523 -1660 30 Feb, 2017 Left hand pain M79.642 and Contusion of left hand, initial encounter S60.222A [place] [address] 40329- 3639 07 Feb, 2017 Body aches R52 and Flu-like symptoms R68.89 [place] [address] [place] [address]- 1514 Jan, [facility] [id number] [place] [address] 22425- 6411 Jan, Bipolar disease, chronic F31.9 ; Acquired hypothyroidism E03.9 and Encounter for immunization Z23 [facility] [place] [id number] [place] [address] 46644 -8075 05 Dec, 2016 Crushing injury of left wrist and hand, initial encounter S67.42XA [place] [address] 95717- 3693 Sep, [place] [address] 50780- 3621 Sep, Bipolar disease, chronic F31.9 ; Panic disorder with agoraphobia F40.01 and Proteinuria, unspecified type R80.9 [place] [address] 85078- 2187 August, [place] [address] 75103- 2081 August, Degenerative joint disease M19.90 ; Left-sided chest wall pain R07.89 ; Bipolar disease, chronic F31.9 ; Type 2 diabetes mellitus without complication, without long-term current use of insulin E11.9 ; Acquired hypothyroidism E03.9 and Acute cystitis without hematuria N30.00 [place] [id number] [place] [address] 81185- 9834 Mar, [facility] [id number] [place] [address] 09145- 6904 Feb, [facility] [address] 89921 -4421 Feb, Right hand pain M79.641 [facility] [place] [id number] [place] [address] 67718 -4081 Feb, Bronchitis J40 ; Acute non-recurrent pansinusitis J01.40 and Seasonal allergic rhinitis due to other allergic trigger J30.89 [facility] [address] [address]- 9891 29 Dec, 2015 [facility] [address] -4071 Mar, Left-sided chest wall pain R07.89 and Chronic pain G89.29 [facility] [address] [address]- 5111 Jul, [facility] [address] [facility] [id number] [address]- 3999 Jul, [facility] [id number] [place] [address] 03262- 2303 May, [facility] [id number] [address]- 2914 May, [facility] [id number] [place] [address] 85680- 8587 Apr, [facility] [address] [address]- 2631 Apr, [facility] [address] [address]- 9804 Mar, [facility] [address] [address]- 3833 Mar, [facility] [address] [address]- 9572 Feb, [facility] [address] 0528 Feb, [facility] [id number]- 6820 Jan, [facility] [address] 7043 Jan, [facility] [address] [address]- 0628 Jan, 2014 [facility] [place] [facility] [address] [id number] [place] [address]- 4095 28 Jan, 2014 [facility] [place] [facility] [address] [id number] [place] [address]- 7290 15 Jan, 2014 [facility] [place] [facility] [address] [id number] [place] [address]- 2651 15 Jan, 2014 [facility] [place] [facility] [address] [id number] [place] [address]- 8651 19 Dec, 2013 [facility] [place] [facility] [address] [id number] [place] [address]- 9084 19 Dec, 2013 [facility] [place] [facility] [address] [id number] [place] [address]- 3690 19 Dec, 2013 [facility] [place] [facility] [address] [id number] [place] [address]- 6112 19 Dec, 2013 [facility] [place] [facility] [address] [id number], [place] [address]- 7955 18 Dec, 2013 [facility] [place] [facility] [address] [id number] [place] [address]- 9737 18 Dec, 2013 [facility] [place] [facility] [address] [id number] [place] [address]- 1107 16 Dec, 2013 [facility] [place] [facility] [address] [id number], [place] [address]- 6752 16 Dec, 2013 [facility] [place] [facility] [address] [id number] [address]- 9220 17 Sep, 2013 [facility] [place] [facility] [address] [id number] [address]- 0823 17 Sep, 2013 [facility] [place] [facility] [address] [id number] [address]- 2491 15 Jul, 2013 [facility] [place] [facility] [address] [id number], [place] [address]- 9329 15 Jul, 2013 [facility] [place] [facility] [address] [id number] [place] [address]- 9316 Jul, [facility] [place] [facility] [address] [id number] [place] [address]- 8678 Jul, [facility] [place] [facility] [address] [id number] [place] [address]- 5631 Jul, [facility] [place] [facility] [address] [id number] [place] [address]- 5641 Jul, [facility] [place] [facility] [address] [id number] [place] [address]- 0207 Jul, [facility] [place] [facility] [address] [id number] [place] [address]- 3802 Jul, [facility] [place] [facility] [address] [id number] [place] [address]- 1322 Jun, [facility] [place] [facility] [address] [id number] [place] [address]- 8018 Jun, [facility] [place] [facility] [address] [id number] [place] [address]- 3805 May, [facility] [place] [facility] [address] [id number] [place] [address]- 1160 May, [facility] [place] [facility] [address] [id number] [place] [address]- 4830 May, [facility] [place] [facility] [address] [id number] [place] [address]- 0469 May, [facility] [place] [facility] [address] [id number] [place] [address]- 7737 Apr, [facility] [place] [facility] [address] [id number] [place] [address]- 1820 Apr, [facility] [place] [facility] [address] [id number] [place] [address]- 0486 Mar, [facility] [place] [facility] [address] [id number] [place] [address]- 5701 Mar, [facility] [place] [facility] [address] [id number] [place] [address]- 1573 Feb, [facility] [place] [facility] [address] [id number] [place] [address]- 9973 Feb, [facility] [place] [facility] [address] [id number] [place] [address]- 9383 Feb, [facility] [place] [facility] [address] [id number] [place] [address]- 1757 Feb, [facility] [place] [facility] [address] [id number] [place] [address]- 5347 Jan, [facility] [place] [facility] [address] [id number] [place] [address]- 9018 Jan, [facility] [place] [facility] [address] [id number] [place] [address]- 7754 Jan, [facility] [place] [facility] [address] [id number] [place] [address]- 7583 Jan, [facility] [place] [facility] [address] [id number] [place] [address]- 7408 Jan, [facility] [place] [facility] [address] [id number], [place] [address]- 7847 Dec, [facility] [place] [facility] [address] [id number], [place] [address]- 6546 Dec, [facility] [place] [facility] [address] [id number], [place] [address]- 8329 Nov, [facility] [place] [facility] [address] [id number] [place] [address]- 2548 Sep, [facility] [place] [facility] [address] [id number] [place] [address]- 3956 August, [facility] [place] [facility] [address] [id number] [place] [address]- 2546 August, [facility] [place] [facility] [address] [id number] [place] [address]- 8853 30 Jul, 2012 [facility] [address] [id number] [place] [address]- 1661 Jul, [facility] [address] [id number] [place] [address]- 5714 Jul, [facility] [address] [id number] [place] [address]- 1690 Jul, [facility] [address] [id number] [place] [address]- 1343 Jul, [facility] [address] [id number] [place] [address]- 8418 Jul, [facility] [address] [id number] [place] [address]- 1096 Jul, [facility] [address] [id number] [place] [address]- 4425 Jun, [facility] [address] [id number] [place] [address]- 1853 Jun, [facility] [address] [id number] [place] [address]- 4536 May, [facility] [address] [id number] [place] [address]- 8247 Apr, [facility] [address] [id number] [place] [address]- 6253 Apr, [facility] [address] [id number] [place] [address]- 8431 Mar, [facility] [address] [id number] [place] [address]- 2437 Mar, [facility] [address] [id number] [place] [address]- 4527 Mar, [facility] [address] [id number] [place] [address]- 1261 Feb, [facility] [place] [facility] [address] [id number] [place] [address]- 3347 Feb, [facility] [place] [facility] [address] [id number] [place] [address]- 2871 Feb, [facility] [place] [facility] [address] [id number] [place] [address]- 2028 Feb, [facility] [place] [facility] [address] [id number] [place] [address]- 2515 Feb, [facility] [place] [facility] [address] [id number] [place] [address]- 3906 Feb, [facility] [place] [facility] [address] [id number] [place] [address]- 4054 Feb, [facility] [place] [facility] [address] [id number] [place] [address]- 0994 16 Feb, 2012 [facility] [place] [facility] [address] [id number] [place] [address]- 8842 14 Feb, 2012 [facility] [place] [facility] [address] [id number] [place] [address]- 1902 Feb, [facility] [place] [facility] [address] [id number] [place] [address]- 0314 Feb, [facility] [place] [facility] [address] [id number] [place] [address]- 2052 27 Dec, 2011 [facility] [place] [facility] [address] [id number] [place] [address]- 4080 07 Dec, 2011 [facility] [place] [facility] [address] [id number] [place] [address]- 8741 30 Nov, 2011 [facility] [place] [facility] [address] [id number] [place] [address]- 7502 Nov, [facility] [place] [facility] [address] [id number] [place] [address]- 0293 Oct, [facility] [place] [facility] [address] [id number] [place] [address]- 1639 Oct, [facility] [place] [facility] [address] [id number] [place] 9815 Sep, [facility] [place] [facility] [address] [id number] [place] [address]- 2278 May, [facility] [place] [facility] [address] [id number] [place] [address]- 7366 May, [facility] [place] [facility] [address] [id number] [place] [address]- 2498 May, [facility] [place] [facility] [address] [id number] [place] [address]- 5873 Apr, [facility] [place] [facility] [address] [id number] [place] 6972 Mar, [facility] [place] [facility] [address] [id number] [place] [address]- 1248 Mar, [facility] [place] [facility] [address] [id number], [place] [address]- 5432 Feb, [facility] [place] [facility] [address] [id number], [place] [address]- 7782 Feb, [facility] [place] [facility] [address] [id number] [place] [address]- 5467 Feb, [facility] [place] [facility] [address] [id number], [place] [address]- 2789 Jan, [facility] [place] [facility] [address] [id number], [place] [address]- 2682 Jan, [facility] [place] [facility] [address] [id number], [place] [address]- 2196 Dec, [facility] [place] [facility] [address] [id number][place] [address]- 8858 Mar, [facility] [place] [facility] [address] [id number] [place] [address]- 2487 Feb, [facility] [place] [facility] [address] [id number] [address]- 2546 10 Feb, 2009 [facility] [id number] [address]- 8126 Feb, [facility] [address], [place] [address]- 2546 Jan, [facility] [address] [address]- 2546 Dec, [facility] [address] [id number] [address]- 2546 Nov, [facility] [id number] [place] [address] 85850- 7926 Sep, [facility] [address] [address]- 0616 August, [facility] [address], [place] [address]- 2156 May, [facility] [id number] [address]- 2476 Mar, IMMUNIZATIONS No Known Immunizations SOCIAL HISTORY Never Assessed REASON FOR VISIT headaches x1 week, dizziness, lightheaded, reports blacking out, fell and hit head 2 days ago----Mary, reports she went to [facility], but was triaged by nurse and not seen PLAN OF CARE Activity Details Follow Up 1 Week Reason: VITAL SIGNS Height 63 in 2017-04-06 Weight 208 lbs 2017-04-06 Temperature 98.3 degrees Fahrenheit 2017-04-06 Heart Rate 80 bpm 2017-04-06 Respiratory Rate 20 2017-04-06 BMI 36.84 kg/m2 2017-04-06 Blood pressure systolic 96 mmHg 2017-04-06 Blood pressure diastolic 60 mmHg 2017-04-06 MEDICATIONS Medication Instructions Dosage Frequency Start Date End Date Duration Status ProAir HFA 108 (90 Base) MCG/ACT Inhalation every 6 hrs 2 puffs as needed 6h Mar, Active Fluoxetine 40 mg Orally Once a day 1 capsule in the morning 24h August, 90 days Active Synthroid 50 mcg Orally Once a day 1 tablet on an empty stomach in the morning 24h August, 90 days Active MetFORMIN HCl ER 500 mg Orally twice a day 1 tablet with evening meal 12h August, 90 days Not-Taking Womens One Daily - Active Promethazine HCl 12.5 MG Orally every 6 hrs 1 tablet as needed 6h Mar, Apr, 05 days Active Cyclobenzaprine HCl 10 MG Orally Three times a day PRN 1 tablet as needed Active Mobic 15 MG Orally Once a day 1 tablet 24h August, Sep, 30 day(s) Active EpiPen 0.3 mg/0.3ml Injection once as directed Sep, 1 dose Not-Taking RESULTS No Results PROCEDURES Procedure Date Ordered Result Body Site [facility] Apr 06, 2017 ANN-MARIE RODRIGUEZ* Apr 06, 2017 INSTRUCTIONS MEDICATIONS ADMINISTERED No Known Medications [...] Hospitalization History left foot swollen, stepped in [facility] ER 05/02/17
--- OUTSIDE RECORDS SUMMARY | 2017-12-24 02:56 | XMS REPORT ---
Author Author YOGESH DALTON [facility] Address [address] [place] [address] Care Team Providers Care Color Making Supervisor Name Role Phone YOGESH DALTON Unavailable PROBLEMS Type Condition ICD9-CM Code XGM93-YC Code Onset Dates Condition Status SNOMED Code Problem Psychosis, unspecified psychosis type F29 Active 00031736 Problem Lumbago with sciatica, left side M54.42 Active 071147401 Problem Personality disorder F60.9 Active 12127782 Problem Right sciatic nerve pain M54.31 Active 38491521 Problem Bipolar disease, chronic F31.9 Active 46679246 Problem Depressive disorder, not elsewhere classified F32.9 Active 37674110 Problem Other chronic pain G89.29 Active 83636218 Problem Lumbago with sciatica, right side M54.41 Active 559679461970650 Problem Morbid (severe) obesity due to excess calories E66.01 Active 45634047950183 Problem Body mass index (BMI) of 40.0-44.9 in adult Z68.41 Active 978737029 Problem Degenerative joint disease M19.90 Active 370933233 Problem Chronic pain G89.29 Active 23270475 Problem COPD (chronic obstructive pulmonary disease) J44.9 Active 96748078 Problem Panic disorder with agoraphobia F40.01 Active 35995546 Problem Cigarette nicotine dependence without complication F17.210 Active 55833447 Problem Xanax use disorder, moderate F13.20 Active 475443825 Problem Acquired hypothyroidism E03.9 Active 243724030 Problem Methamphetamine use disorder, severe, 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 Active 67545409 Problem Pre-diabetes R73.03 Active 429906708 Problem Opioid use disorder, moderate, dependence F11.20 Active 92858816 ALLERGIES Substance Reaction Event Type Date Status Tramadol HCl nausea and vomiting Drug Allergy Mar, Active Penicillin V Potassium anaphylaxis Drug Allergy Mar, Active Keflex anaphylaxis Drug Allergy Mar, Active Ibuprofen Unknown Drug Allergy Mar, Active Aspirin hives Drug Allergy Mar, Active ENCOUNTERS Encounter Location Date Diagnosis [facility] [id number] [place] [address] 78790- 4322 Dec, [facility] [id number] [place] [address] 55584- 3073 Oct, [facility] [id number] [place] [address] 77980- 5711 Sep, Methamphetamine use disorder, severe, 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 ; Psychosis, unspecified psychosis type F29 ; Personality disorder F60.9 ; Opioid use disorder, moderate, dependence F11.20 ; Xanax use disorder, moderate F13.20 and BMI 40.0-44.9, adult Z68.41 [facility] [id number] [place] [address] 55709- 7945 Sep, Depressive disorder, not elsewhere classified F32.9 and Psychosis, unspecified psychosis type F29 [facility] [id number] [place] [address] 79948- 5461 August, [facility] [id number] [place] [address] 49441- 5274 August, Depressive disorder, not elsewhere classified F32.9 and Psychosis, unspecified psychosis type F29 [facility] [id number] [place] [address] 04713- 2190 August, [facility] [id number] [place] [address] 92825- 1607 August, Lumbago with sciatica, right side M54.41 and Other chronic pain G89.29 [facility] [id number] [place] [address] 95900 -9968 Jul, Right sciatic nerve pain M54.31 [facility] [id number] [place] [address] 24037- 3515 Jul, Acquired hypothyroidism E03.9 [facility] [address] 68979- 9239 Jul, Depressive disorder, not elsewhere classified F32.9 and Psychosis, unspecified psychosis type F29 [place] [address] [place] [address] 44647- 5528 Jul, Acquired hypothyroidism E03.9 ; Lumbago with sciatica, right side M54.41 and Lumbar radiculopathy, acute M54.16 [place] [id number] [place] [address] 19626- 1773 Jul, Methamphetamine use disorder, severe, 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 ; Psychosis, unspecified psychosis type F29 ; Personality disorder F60.9 ; Opioid use disorder, moderate, dependence F11.20 ; Xanax use disorder, moderate F13.20 and BMI 40.0-44.9, adult Z68.41 [place] [id number] [place] [address] 99146- 8748 Jun, Methamphetamine use disorder, severe, 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 ; Psychosis, unspecified psychosis type F29 ; Personality disorder F60.9 ; Opioid use disorder, moderate, dependence F11.20 and Xanax use disorder, moderate F13.20 [place] [address] [place] [address] 77711- 6734 Jun, Depressive disorder, not elsewhere classified F32.9 and Psychosis, unspecified psychosis type F29 [place] [address] [place] [address] 86978- 0163 Jun, Lumbar radiculopathy, acute M54.16 [place] [address] [place] [address] 83775- 9778 Jun, Lumbar radiculopathy, acute M54.16 ; Strain of abdominal wall, initial encounter S39.011A and BMI 40.0-44.9, adult Z68.41 [place] [address] [place] [address] 71917- 0378 Jun, [place] [id number] [place] [address] 01588- 6055 May, [place] [id number] [place] [address] 19538- 5286 May, Methamphetamine use disorder, severe, 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 ; Psychosis, unspecified psychosis type F29 ; Personality disorder F60.9 ; Opioid use disorder, moderate, dependence F11.20 and Xanax use disorder, moderate F13.20 [place] [address] 06805- 2212 May, [place] [address] 98256- 6471 May, [place] [address] 95330- 4585 May, Lumbago with sciatica, left side M54.42 ; Lumbago with sciatica, right side M54.41 ; Other chronic pain G89.29 ; Weight gain R63.5 ; Acquired hypothyroidism E03.9 and BMI 40.0-44.9, adult Z68.[address] 22329- 9574 Apr, Cigarette nicotine dependence without complication F17.210 [place] [address] 32890- 4766 Apr, Acute bilateral low back pain without sciatica M54.5 [place] [id number] [place] [address] 78455- 9071 Apr, Methamphetamine use disorder, severe, 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 ; Psychosis, unspecified psychosis type F29 ; Personality disorder F60.9 ; Opioid use disorder, moderate, dependence F11.20 and Xanax use disorder, moderate F13.20 [facility] [id number] [place] [address] 80136 -9963 Apr, Wheezing R06.2 and Bronchitis J40 [address] 83113- 8242 Apr, Bronchitis J40 ; Cigarette nicotine dependence without complication F17.210 and Bipolar disease, chronic F31.9 [place] [address] 53372- 6138 Mar, Acquired hypothyroidism E03.9 [place] [address] 32322- 6916 Mar, Acquired hypothyroidism E03.9 [place] [address] 08912- 0762 Mar, Orthostatic hypotension I95.1 and Non-intractable vomiting with nausea, unspecified vomiting type R11.[address] 09140- 3145 Mar, Strain of lumbar region, initial encounter S39.012A [address] 89548- 7087 Mar, [facility] [address] 26683 -4139 Mar, Bronchitis J40 [address] 98689- 9745 Mar, Degenerative joint disease M19.90 ; Elevated LFTs R79.89 ; Adenopathy R59.1 ; Drug use F19.90 ; Pre-diabetes R73.03 and COPD (chronic obstructive pulmonary disease) J44.9 [facility] [address] 34245 -7832 Feb, Left hand pain M79.642 and Contusion of left hand, initial encounter S60.222A [address] 02347- 5414 07 Feb, 2017 Body aches R52 and Flu-like symptoms R68.89 [place] [address] 53817- 7440 Jan, [address] [place] [address]- 0671 18 Jan, 2017 Bipolar disease, chronic F31.9 ; Acquired hypothyroidism E03.9 and Encounter for immunization Z23 [facility] [place] [address] 46778 -0758 05 Dec, 2016 Crushing injury of left wrist and hand, initial encounter S67.42XA [place] [address] 20586- 3014 Sep, [place] [address] 18302- 2923 Sep, Bipolar disease, chronic F31.9 ; Panic disorder with agoraphobia F40.01 and Proteinuria, unspecified type R80.9 [place] [address] 84978- 7757 August, [place] [address] 12203- 5915 August, Degenerative joint disease M19.90 ; Left-sided chest wall pain R07.89 ; Bipolar disease, chronic F31.9 ; Type 2 diabetes mellitus without complication, without long-term current use of insulin E11.9 ; Acquired hypothyroidism E03.9 and Acute cystitis without hematuria N30.00 [place] [address] 48738- 8945 07 Mar, 2016 [place] [address] 69310- 8426 Feb, [facility] [place] [address] 92937 -6510 Feb, Right hand pain M79.641 [facility] [address] 97396 -5715 Feb, Bronchitis J40 ; Acute non-recurrent pansinusitis J01.40 and Seasonal allergic rhinitis due to other allergic trigger J30.89 [place] [address] 80968- 0986 Dec, [facility] [address] [facility] [id number] -4399 Mar, Left-sided chest wall pain R07.89 and Chronic pain G89.29 [facility] [address] [id number] [place] 480[address] Jul, [facility] [address] [facility] [id number] [place] [address]- 6748 Jul, [facility] [address] [facility] [id number] [place] [address]- 2151 May, [facility] [address] [facility] [id number] [place] [address], [place] 2272 May, [facility] [address] [facility] [id number] [place]- 6398 Apr, [facility] [address] [facility] [id number] [place] [address]- 1753 Apr, [facility] [address] [facility] [id number] [address]- 0245 Mar, [facility] [address] [facility] [id number] [place] [address]- 5333 Mar, [facility] [address] [facility] [id number] [address]- 6046 Feb, [facility] [address] [facility] [id number] [address]- 8796 Feb, [facility] [address] [facility] [id number] [address]- 6680 Jan, [facility] [address] [facility] [id number] [place] [address]- 5629 Jan, [facility] [address] [facility] [id number] 9699 Jan, [facility] [address] [facility] [id number] [address]- 4166 Jan, 2014 [facility] [place] [facility] [address] [id number] [place] [address]- 1843 15 Jan, 2014 [facility] [place] [facility] [address] [id number] [place] [address]- 6410 15 Jan, 2014 [facility] [place] [facility] [address] [id number] [place] [address]- 6704 19 Dec, 2013 [facility] [place] [facility] [address] [id number] [place] [address]- 9318 19 Dec, 2013 [facility] [place] [facility] [address] [id number] [place] [address]- 6632 19 Dec, 2013 [facility] [place] [facility] [address] [id number] [place] [address]- 2154 19 Dec, 2013 [facility] [place] [facility] [address] [id number] [place] [address]- 8645 18 Dec, 2013 [facility] [place] [facility] [address] [id number] [address]- 7891 18 Dec, 2013 [facility] [place] [facility] [address] [id number] [place] [address]- 8078 16 Dec, 2013 [facility] [place] [facility] [address] [id number] [place] [address]- 4773 16 Dec, 2013 [facility] [place] [facility] [address] [id number] [address]- 4889 17 Sep, 2013 [facility] [place] [facility] [address] [id number] [address]- 8521 17 Sep, 2013 [facility] [place] [facility] [address] [id number] [address]- 7477 15 Jul, 2013 [facility] [place] [facility] [address] [id number] [address]- 9956 15 Jul, 2013 [facility] [place] [facility] [address] [id number] [address]- 9436 10 Jul, 2013 [facility] [place] [facility] [address] [id number] [place] [address]- 7081 Jul, [facility] [address] [id number] [place] [address]- 8980 Jul, [facility] [place] [facility] [address] [id number] [place] [address]- 5946 Jul, [facility] [place] [facility] [address] [id number] [place] [address]- 3179 Jul, [facility] [place] [facility] [address] [id number] [place] [address]- 4155 Jul, [facility] [place] [facility] [address] [id number] [place] [address]- 6494 Jun, [facility] [place] [facility] [address] [id number] [place] [address]- 5094 Jun, [facility] [place] [facility] [address] [id number] [place] [address]- 9625 May, [facility] [place] [facility] [address] [id number] [place] [address]- 1003 May, [facility] [place] [facility] [address] [facility] [id number] [place] [address]- 4968 May, [facility] [place] [facility] [address] [facility] [id number] [place] [address]- 4776 May, [facility] [place] [facility] [address] [id number] [place] [address]- 2953 Apr, [facility] [place] [facility] [address] [id number] [place] [address]- 2008 Apr, [facility] [place] [facility] [address] [id number] [place] [address]- 2772 Mar, [facility] [place] [facility] [address] [id number] [place] 0664 Mar, [facility] [place] [facility] [address] [facility] [id number] [place] 1861 Feb, [facility] [place] [facility] [address] [id number] [place] [address]- 8665 Feb, [facility] [place] [facility] [address] [id number] [place] [address]- 3127 Feb, [facility] [place] [facility] [address] [id number] [place] [address]- 7955 Feb, [facility] [place] [facility] [address] [id number] [place] [address]- 0049 Jan, [facility] [place] [facility] [address] [id number] [place] [address]- 5450 Jan, [facility] [place] [facility] [address] [id number] [place] [address]- 6447 Jan, [facility] [place] [facility] [address] [id number] [place] [address]- 9937 Jan, [facility] [place] [facility] [address] [id number] [place] [address]- 0056 Jan, [facility] [place] [facility] [address] [id number] [place] [address]- 4287 Dec, [facility] [place] [facility] [address] [id number] [address]- 5099 Dec, [facility] [place] [facility] [address] [id number] [address]- 8583 Nov, [facility] [place] [facility] [address] [id number] [address] 2542 Sep, [facility] [place] [facility] [address] [id number] [place] [address]- 9651 August, [facility] [place] [facility] [address] [id number] [place] [address]- 5086 August, [facility] [place] [facility] [address] [id number] [place] [address]- 9184 Jul, [facility] [place] [facility] [address] [id number] [place] [address]- 8606 Jul, [facility] [address] [id number] [place] [address]- 0792 Jul, [facility] [address] [id number] [place] [address]- 9698 Jul, [facility] [address] [id number] [place] [address]- 0089 Jul, [facility] [place] [facility] [address] [id number] [place] [address]- 0778 Jul, [facility] [address] [id number] [place] [address]- 6046 Jul, [facility] [address] [id number] [place] [address]- 3717 Jun, [facility] [address] [id number] [place] [address]- 2165 Jun, [facility] [address] [id number] [place] [address]- 6276 May, [facility] [address] [id number] [place] [address]- 9683 Apr, [facility] [address] [id number] [place] [address]- 5706 Apr, [facility] [address] [id number] [place] [address]- 6369 Mar, [facility] [place] [facility] [address] [id number] [place] [address]- 7341 Mar, [facility] [place] [facility] [address] [id number] [place] [address]- 2018 Mar, [facility] [place] [facility] [address] [id number] [place] [address]- 4633 Feb, [facility] [address] [id number] [place] [address]- 3047 Feb, [facility] [place] [facility] [address] [id number] [place] [address]- 4467 Feb, [facility] [place] [facility] [address] [id number] [place] [address]- 1122 24 Feb, 2012 [facility] [place] [facility] [address] [id number] [place] [address]- 3506 Feb, [facility] [place] [facility] [address] [id number] [place] [address]- 7722 Feb, [facility] [place] [facility] [address] [id number] [place] [address]- 4515 Feb, [facility] [place] [facility] [address] [id number] [place] [address]- 4071 16 Feb, 2012 [facility] [place] [facility] [address] [id number] [place] [address]- 2859 14 Feb, 2012 [facility] [place] [facility] [address] [id number] [place] [address]- 0986 Feb, [facility] [place] [facility] [address] [id number] [place] [address]- 0230 Feb, [facility] [place] [facility] [address] [id number] [place] [address]- 6827 Dec, [facility] [place] [facility] [address] [id number] [place] [address]- 1904 Dec, [facility] [place] [facility] [address] [id number] [place] [address]- 1933 30 Nov, 2011 [facility] [place] [facility] [address] [id number] [place] [address]- 2572 Nov, [facility] [place] [facility] [address] [id number] [place] [address] Oct, [facility] [place] [facility] [address] [id number] [place] [address]- 1347 Oct, [facility] [place] [facility] [address] [id number] [place] [address]- 1700 Sep, [facility] [place] [facility] [address] [id number] [place] [address]- 1295 May, [facility] [place] [facility] [address] [id number] [place] [address]- 0606 May, [facility] [place] [facility] [address] [id number] [place] [address]- 6635 May, [facility] [place] [facility] [address] [id number] [place] [address]- 2564 Apr, [facility] [place] [facility] [address] [id number] [place] 5409 Mar, [facility] [place] [facility] [address] [id number] [place] [address]- 1165 Mar, [facility] [place] [facility] [address] [id number] [address]- 9607 Feb, [facility] [place] [facility] [address] [id number] [address]- 6447 Feb, [facility] [place] [facility] [address] [id number] [address]- 1563 Feb, [facility] [place] [facility] [address] [facility] [id number] [address]- 4160 Jan, [facility] [place] [facility] [address] [id number] [address]- 3744 Jan, [facility] [place] [facility] [address] [id number] [address]- 3617 Dec, [facility] [place] [facility] [address] [id number] [place] 0613 Mar, [facility] [place] [facility] [address] [id number] [address]- 1101 Feb, [facility] [place] [facility] [address] [facility] [id number] [place] [address]- 9590 Feb, [facility] [place] [facility] [address] [address]- 2546 Feb, [facility] [address]65[address] [address]- 2546 Jan, [facility] [address]65[address] [address]- 2546 Dec, [facility] [id number] [place] [address] 01333- 2546 Nov, [facility] [id number] [place] [address] 88915- 2546 Sep, [place] [id number] [place] [address] 09236- 2546 August, [facility] [id number] [place] [address] 06724- 2546 May, [facility] [id number] [place] [address] 15476- 2546 Mar, IMMUNIZATIONS No Known Immunizations SOCIAL HISTORY Never Assessed REASON FOR VISIT Pain (acute), went to [facility] ER for back pain, they stated that it may be a herniated disc. No imaging was done. Has numbness in arms, legs, and feet. Was lifting when this happened. [employer] PLAN OF CARE Activity Details Follow Up 4 Months Reason: VITAL SIGNS Height 63 in 2017-03-23 Weight 213.3 lbs 2017-03-23 Temperature 98.8 degrees Fahrenheit 2017-03-23 Heart Rate 84 bpm 2017-03-23 Respiratory Rate 24 2017-03-23 BMI 37.78 kg/m2 2017-03-23 Blood pressure systolic 118 mmHg 2017-03-23 Blood pressure diastolic 60 mmHg 2017-03-23 MEDICATIONS Medication Instructions Dosage Frequency Start Date [...] evening meal 12h August, 90 days Not-Taking ProAir HFA 108 (90 Base) MCG/ACT Inhalation every 6 hrs 2 puffs as needed 6h 05 Mar, 2017 Active Lisinopril 5 mg Orally Once a day 1 tablet 24h Sep, 90 days Active EpiPen 0.3 mg/0.3ml Injection once as directed Sep, 1 dose Not-Taking Cyclobenzaprine HCl 10 MG Orally Three times a day PRN 1 tablet as needed Active Womens One Daily - Active Mobic 15 MG Orally Once a day 1 tablet 24h August, Sep, 30 day(s) Active RESULTS No Results PROCEDURES [...] History left foot swollen, stepped in [facility] ER 05/02/17
--- OUTSIDE RECORDS SUMMARY | 2017-12-24 02:56 | XMS REPORT ---
Author Author JUAN J JOENS Organization [facility] Address [address] [place] [address] Care Team Providers Care Inductor Tester Name Role Phone JUAN J JONES Unavailable PROBLEMS Type Condition ICD9-CM Code XEC08-BT Code Onset Dates Condition Status SNOMED Code Problem Psychosis, unspecified psychosis type F29 Active 42212022 Problem Lumbago with sciatica, left side M54.42 Active 497015479 Problem Personality disorder F60.9 Active 86533429 Problem Right sciatic nerve pain M54.31 Active 75841679 Problem Bipolar disease, chronic F31.9 Active 02038306 Problem Depressive disorder, not elsewhere classified F32.9 Active 28869520 Problem Other chronic pain G89.29 Active 25589911 Problem Lumbago with sciatica, right side M54.41 Active 256535121744931 Problem Morbid (severe) obesity due to excess calories E66.01 Active 73585477462402 Problem Body mass index (BMI) of 40.0-44.9 in adult Z68.41 Active 257364642 Problem Degenerative joint disease M19.90 Active 088841703 Problem Chronic pain G89.29 Active 89410705 Problem COPD (chronic obstructive pulmonary disease) J44.9 Active 14172714 Problem Panic disorder with agoraphobia F40.01 Active 94282618 Problem Cigarette nicotine dependence without complication F17.210 Active 20109635 Problem Xanax use disorder, moderate F13.20 Active 825108385 Problem Acquired hypothyroidism E03.9 Active 024937062 Problem Methamphetamine use disorder, severe, 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 Active 31757204 Problem Pre-diabetes R73.03 Active 048471945 Problem Opioid use disorder, moderate, dependence F11.20 Active 69875096 ALLERGIES Substance Reaction Event Type Date Status Tramadol HCl nausea and vomiting Drug Allergy Feb, Active Penicillin V Potassium anaphylaxis Drug Allergy Feb, Active Keflex anaphylaxis Drug Allergy Feb, Active Ibuprofen Unknown Drug Allergy Feb, Active Aspirin hives Drug Allergy Feb, Active ENCOUNTERS Encounter Location Date Diagnosis [facility] [address], [place] [address] Sep, [facility] [id number] [address] Sep, [facility] [id number] [place] [address] August, [facility] [id number] [place] [address] August, Depressive disorder, not elsewhere classified F32.9 and Psychosis, unspecified psychosis type F29 [facility] [id number] [place] [address] 8[address] August, [facility] [id number] [place] [address] August, Lumbago with sciatica, right side M54.41 and Other chronic pain G89.29 [facility] [id number] [address] Jul, Right sciatic nerve pain M54.31 [facility] [id number] [place] [address] 3052 Jul, Acquired hypothyroidism E03.9 [facility] [address], [place] [address] Jul, Depressive disorder, not elsewhere classified F32.9 and Psychosis, unspecified psychosis type F29 [facility] [address], [place] [address] Jul, Acquired hypothyroidism E03.9 ; Lumbago with sciatica, right side M54.41 and Lumbar radiculopathy, acute M54.16 [facility] [address] [address] Jul, Methamphetamine use disorder, severe, 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 ; Psychosis, unspecified psychosis type F29 ; Personality disorder F60.9 ; Opioid use disorder, moderate, dependence F11.20 ; Xanax use disorder, moderate F13.20 and BMI 40.0-44.9, adult Z68.41 [facility] [id number] [place] [address] 49[address] Jun, Methamphetamine use disorder, severe, 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 ; Psychosis, unspecified psychosis type F29 ; Personality disorder F60.9 ; Opioid use disorder, moderate, dependence F11.20 and Xanax use disorder, moderate F13.20 [facility] [id number] [place] [address] 117[address] Jun, Depressive disorder, not elsewhere classified F32.9 and Psychosis, unspecified psychosis type F29 [facility] [id number] [place] [address] 84950[address] 2437 Jun, Lumbar radiculopathy, acute M54.16 [place] [address] [address] Jun, Lumbar radiculopathy, acute M54.16 ; Strain of abdominal wall, initial encounter S39.011A and BMI 40.0-44.9, adult Z68.41 [facility] [id number] [place] [address] 33436- 9598 Jun, [facility] [id number] [place] [address] 20569- 3912 May, [facility] [id number] [place] [address] 89491- 5622 May, Methamphetamine use disorder, severe, 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 ; Psychosis, unspecified psychosis type F29 ; Personality disorder F60.9 ; Opioid use disorder, moderate, dependence F11.20 and Xanax use disorder, moderate F13.20 [facility] [place] [id number] [place] [address] 18011- 8561 May, [facility] [id number] [place] [address] 11212- 4337 May, [facility] [address] [address] May, Lumbago with sciatica, left side M54.42 ; Lumbago with sciatica, right side M54.41 ; Other chronic pain G89.29 ; Weight gain R63.5 ; Acquired hypothyroidism E03.9 and BMI 40.0-44.9, adult Z68.41 [place] [address] 9529[address]- 7[address] Apr, Cigarette nicotine dependence without complication F17.[address] [address] Apr, Acute bilateral low back pain without sciatica M54.5 [place] [address] [address] Apr, Methamphetamine use disorder, severe, 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 ; Psychosis, unspecified psychosis type F29 ; Personality disorder F60.9 ; Opioid use disorder, moderate, dependence F11.20 and Xanax use disorder, moderate F13.20 [facility] [address] [address] Apr, Wheezing R06.2 and Bronchitis J40 [id number] [place] [address] 6[address]64[address] 0977 Apr, Bronchitis J40 ; Cigarette nicotine dependence without complication F17.210 and Bipolar disease, chronic F31.9 [facility] [address] [address] Mar, Acquired hypothyroidism E03.9 [place] [address] [address]894- 4623 Mar, Acquired hypothyroidism E03.9 [facility] [address] [address] Mar, Orthostatic hypotension I95.1 and Non-intractable vomiting with nausea, unspecified vomiting type R11.2 [place] [id number] [place] [address] 0[address]60- 4985 14 Mar, 2017 Strain of lumbar region, initial encounter S39.012A [place] [id number] [place] [address] 14307- 6612 11 Mar, 2017 [facility] [address] [address] Mar, Bronchitis J40 [address] [address]- [address] 05 Mar, 2017 Degenerative joint disease M19.90 ; Elevated LFTs R79.89 ; Adenopathy R59.1 ; Drug use F19.90 ; Pre-diabetes R73.03 and COPD (chronic obstructive pulmonary disease) J44.9 [facility] [address] [address] 30 Feb, 2017 Left hand pain M79.642 and Contusion of left hand, initial encounter S60.222A [address] [address] Feb, Body aches R52 and Flu-like symptoms R68.89 [place] [id number] [place] [address]808[address] 8197 Jan, [address] [address] Jan, Bipolar disease, chronic F31.9 ; Acquired hypothyroidism E03.9 and Encounter for immunization Z23 [facility] [place] [id number] [place] [address] 05 Dec, 2016 Crushing injury of left wrist and hand, initial encounter S67.42XA [place] [id number] [place] [address] 94497- [address]500 Sep, [address] [address] Sep, Bipolar disease, chronic F31.9 ; Panic disorder with agoraphobia F40.01 and Proteinuria, unspecified type R80.[address] [address]- [address] August, [place] [address] [address]- 6[address] August, Degenerative joint disease M19.90 ; Left-sided chest wall pain R07.89 ; Bipolar disease, chronic F31.9 ; Type 2 diabetes mellitus without complication, without long-term current use of insulin E11.9 ; Acquired hypothyroidism E03.9 and Acute cystitis without hematuria N30.[address] [address]- [address]18 Mar, [address] [address] Feb, [facility] [address] [address] Feb, Right hand pain M79.641 [facility] [address] [address] Feb, Bronchitis J40 ; Acute non-recurrent pansinusitis J01.40 and Seasonal allergic rhinitis due to other allergic trigger J30.[address] [address]11- 3096 Dec, [facility] [address] [address] Mar, Left-sided chest wall pain R07.89 and Chronic pain G89.[address] [address]35- [address]295 Jul, [address] [address]- 2211 Jul, [address] [address]- 6567 May, [facility] [place] [facility] [address] [id number] [place] [address] May, [facility] [place] [facility] [address] [id number] [place] [address] 0615 Apr, [facility] [place] [facility] [address] [id number] [place] [address]- 9748 Apr, [facility] [place] [facility] [address] [id number] [place] [address]- 3039 Mar, [facility] [place] [facility] [address] [id number] [place] [address]- 3233 Mar, [facility] [place] [facility] [address] [id number] [place] [address]- 6023 Feb, [facility] [place] [facility] [address] [id number] [place] [address]- 4909 Feb, [facility] [place] [facility] [address] [id number] [address] 8[address] Jan, [facility] [place] [facility] [address] [id number] [place] [address]- 7617 Jan, [facility] [place] [facility] [address] [id number] [place] [address]- 9358 Jan, [facility] [place] [facility] [address] [id number], [place] [address] 20[address] Jan, [facility] [place] [facility] [address] [id number], [place] [address]- 49[address] Jan, [facility] [place] [facility] [address] [id number] [place] [address]- 8611 15 Jan, 2014 [facility] [place] [facility] [address] [id number], [place] [address] 2642 Dec, [facility] [place] [facility] [address] [id number] [place] [address]- 3177 Dec, [facility] [place] [facility] [address] [id number] [place] [address]- 8419 19 Dec, 2013 [facility] [place] [facility] [address] [id number] [place] [address]- 1326 19 Dec, 2013 [facility] [place] [facility] [address] [id number] [place] [address]- 3696 18 Dec, 2013 [facility] [place] [facility] [address] [id number] [place] [address]- 1938 18 Dec, 2013 [facility] [place] [facility] [address] [id number] [place] [address]- 4387 16 Dec, 2013 [facility] [place] [facility] [address] [id number] [place] [address]- 8876 16 Dec, 2013 [facility] [place] [facility] [address] [id number] [place] [address]- 3701 17 Sep, 2013 [facility] [place] [facility] [address] [id number] [place] [address]- 3018 17 Sep, 2013 [facility] [place] [facility] [address] [id number] [place] [address]- 4935 15 Jul, 2013 [facility] [place] [facility] [address] [id number] [place] [address]- 1613 15 Jul, 2013 [facility] [place] [facility] [address] [id number] [place] [address]- 0203 10 Jul, 2013 [facility] [place] [facility] [address] [id number] [place] [address]- 5327 10 Jul, 2013 [facility] [place] [facility] [address] [id number] [place] [address]- 3186 Jul, [facility] [place] [facility] [address] [id number] [place] [address]- 7169 Jul, [facility] [place] [facility] [address] [id number] [place] [address]- 3994 Jul, [facility] [place] [facility] [address] [id number] [place] [address]- 8587 Jul, [facility] [place] [facility] [address] [id number] [place] [address]- 0195 Jun, [facility] [place] [facility] [address] [id number] [place] [address]- 5938 Jun, [facility] [place] [facility] [address] [id number] [place] [address]- 5348 May, [facility] [place] [facility] [address] [id number] [place] [address]- 1572 May, [facility] [place] [facility] [address] [id number] [place] [address]- 3519 May, [facility] [place] [facility] [address] [id number] [place] [address]- 7001 May, [facility] [place] [facility] [address] [id number] [place] [address]- 4868 Apr, [facility] [place] [facility] [address] [id number] [place] [address]- 1731 Apr, [facility] [place] [facility] [address] [id number] [place] [address]- 5570 Mar, [facility] [place] [facility] [address] [id number] [place] [address]- 8290 Mar, [facility] [place] [facility] [address] [id number], [place] [address]- 7079 Feb, [facility] [place] [facility] [address] [id number], [place] [address]- 2053 Feb, [facility] [place] [facility] [address] [id number] [place] [address]- 6117 Feb, [facility] [place] [facility] [address] [id number] [place] [address]- 0815 Feb, [facility] [place] [facility] [address] [facility] [id number] [address] Jan, [facility] [place] [facility] [address] [id number] [address]- 3450 Jan, [facility] [address] [id number] [place] [address]- 9351 Jan, [facility] [address] [id number], [place] [address]- 7250 Jan, [facility] [address] [facility] [id number] [place] [address]- 0210 Jan, [facility] [address] [id number] [place] [address]- 2765 Dec, [facility] [address] [id number] [place] [address]- 7707 Dec, [facility] [address] [id number] [place] [address]- 2268 Nov, [facility] [address], [place] [address]- 79[address] Sep, [facility] [address] [id number] [place] [address]- 2845 August, [facility] [id number] [place] [address]- 1129 August, [facility] [address] [id number] [place] [address]- 1620 Jul, [facility] [address] [id number], [place] [address]- 1244 Jul, [facility] [place] [facility] [address] [id number], [place] [address]- 2615 Jul, [facility] [place] [facility] [address] [id number], [place] [address]- 7412 Jul, [facility] [place] [facility] [address] [facility] [id number], [place] [address]- 0931 Jul, [facility] [place] [facility] [address] [id number], [place] [address]- 1288 Jul, [facility] [place] [facility] [address] [id number] [place] [address]- 8032 Jul, [facility] [place] [facility] [address] [id number] [place] [address]- 5716 Jun, [facility] [place] [facility] [address] [id number] [place] [address] 2546 Jun, [facility] [place] [facility] [address] [id number] [place] [address]- 1926 May, [facility] [place] [facility] [address] [id number] [place] [address] 2541 Apr, [facility] [place] [facility] [address] [id number] [place] [address]- 5019 Apr, [facility] [place] [facility] [address] [id number] [place] [address]- 5778 Mar, [facility] [place] [facility] [address] [id number] [place] [address]- 4314 Mar, [facility] [place] [facility] [address] [id number] [place] [address]- 2351 Mar, [facility] [place] [facility] [address] [id number] [place] [address]- 0558 Feb, [facility] [place] [facility] [address] [id number] [place] [address]- 7207 Feb, [facility] [place] [facility] [address] [id number] [place] [address]- 2540 Feb, [facility] [place] [facility] [address] [id number] [place] [address] 2543 Feb, [facility] [place] [facility] [address] [id number] [place] [address] 2546 Feb, [facility] [place] [facility] [address] [id number] [place] [address]- 2542 Feb, [facility] [place] [facility] [address] [id number] [place] [address]- 3411 16 Feb, 2012 [facility] [place] [facility] [address] [id number] [place] [address]- 8201 16 Feb, 2012 [facility] [place] [facility] [address] [id number] [place] [address]- 6191 14 Feb, 2012 [facility] [place] [facility] [address] [id number] [place] [address]- 7766 Feb, [facility] [place] [facility] [address] [id number] [place] [address]- 9502 08 Feb, 2012 [facility] [place] [facility] [address] [id number] [place] [address]19 27 Dec, 2011 [facility] [place] [facility] [address] [id number] [place] [address]- 1484 Dec, [facility] [place] [facility] [address] [id number] [place] [address]- 7714 Nov, [facility] [place] [facility] [address] [id number] [place] [address]- 0229 Nov, [facility] [place] [facility] [address] [id number] [place] [address]- 6888 Oct, [facility] [place] [facility] [address] [id number] [place] [address]- 7904 Oct, [facility] [place] [facility] [address] [id number] [place] [address]- 9809 Sep, [facility] [place] [facility] [address] [id number], [place] [address]- 3989 May, [facility] [place] [facility] [address] [id number] [place] [address]- 5486 15 May, 2011 [facility] [place] [facility] [address] [id number] [place] [address]- 3916 May, [facility] [place] [facility] [address] [id number] [place] [address] 2546 Apr, [facility] [place] [facility] [address] [id number] [place] [address]- 2546 Mar, [facility] [address] [id number] [place] [address]- 6938 Mar, [facility] [place] [facility] [address] [id number] [place] [address]- 2546 Feb, [facility] [address] [id number] [place] [address]- 4686 Feb, [facility] [place] [facility] [address] [id number] [place] [address]- 5523 Feb, [facility] [place] [facility] [address] [id number] [place] [address]- 6668 Jan, [facility] [place] [facility] [address] [id number] [place] [address]- 8074 Jan, [facility] [place] [facility] [address] [facility] [id number] [place] [address]- 6527 Dec, [facility] [address] [id number] [place] [address]- 5260 Mar, [facility] [place] [facility] [address] [facility] [id number] [place] [address]- 6822 Feb, [facility] [place] [facility] [address] [facility] [id number] [place] [address]- 3996 Feb, [facility] [place] [facility] [address] [id number] [place] [address]- 2542 Feb, [facility] [place] [facility] [address] [id number] [place] [address]- 2735 Jan, [facility] [place] [facility] [address] [id number] [place] [address]- 7227 16 Dec, 2008 [facility] [place] [facility] [address] [facility] [id number] [place] [address]- 2546 10 Nov, 2008 [facility] [place] [facility] [address] [id number] [place] [address]- 5170 Sep, [facility] [address] [facility] [id number] [place] [address]- 0377 August, [facility] [address] [facility] [id number], [place] [address]- 2716 May, [facility] [address] [facility] [id number], [place] [address]- 2986 Mar, IMMUNIZATIONS No Known Immunizations SOCIAL HISTORY Never Assessed REASON FOR VISIT hand pain: states slipped on rug in bathroom last night and slammed hand against bathroom ab bernal rn PLAN OF CARE Activity Details Follow Up prn Reason: VITAL SIGNS Height 63 in 2017-03-09 Weight 196.6 lbs 2017-03-09 Temperature 98.2 degrees Fahrenheit 2017-03-09 Heart Rate 78 bpm 2017-03-09 Respiratory Rate 20 2017-03-09 BMI 34.82 kg/m2 2017-03-09 Blood pressure systolic 106 mmHg 2017-03-09 Blood pressure diastolic 54 mmHg 2017-03-09 MEDICATIONS Medication Instructions Dosage Frequency Start Date End Date Duration Status EpiPen 0.3 mg/0.3ml Injection once as directed Sep, 1 dose Active Fluoxetine 40 mg Orally Once a day 1 capsule in the morning 24h August, 90 days Active Lisinopril 5 mg Orally Once a day 1 tablet 24h Sep, 90 days Active Synthroid 50 mcg Orally Once a day 1 tablet on an empty stomach in the morning 24h August, 90 days Active MetFORMIN HCl ER 500 mg Orally twice a day 1 tablet with evening meal 12h August, 90 days Active RESULTS Name Result Date Reference Range Xray : Hand, Left 3 views (IN HOUSE) 2017-03-09 PROCEDURES Procedure Date Ordered Result Body Site X-RAY EXAM OF HAND Mar 09, 2017 INSTRUCTIONS MEDICATIONS ADMINISTERED No Known Medications [...] suicide ideat and attempts. Rios Shepherd, Lacie, [place] last around 2006 Hospitalization History left foot swollen, stepped in [facility] ER 05/02/17
--- OUTSIDE RECORDS SUMMARY | 2017-12-24 02:57 | XMS REPORT ---
Author Author KYLE HENDRIX Organization 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 Equipment Installer Name Role Phone KYLE HENDRIX Unavailable PROBLEMS Type Condition ICD9-CM Code [id number] Code Onset Dates Condition Status SNOMED Code Problem Psychosis F29 Active 20246736 Problem Bipolar disease, chronic F31.9 Active 72692893 Problem Acquired hypothyroidism E03.9 Active 352506765 Problem Type 2 diabetes mellitus without complication, without long-term current use of insulin E11.9 Active 815979144 Problem Degenerative joint disease M19.90 Active 470836172 Problem Panic disorder with agoraphobia F40.01 Active 78794024 Problem Chronic pain G89.29 Active 65271114 Problem COPD (chronic obstructive pulmonary disease) J44.9 Active 62260205 ALLERGIES Substance Reaction Event Type Date Status Tramadol HCl nausea and vomiting Drug Allergy August, Active Penicillin V Potassium anaphylaxis Drug Allergy August, Active Keflex anaphylaxis Drug Allergy August, Active Ibuprofen Unknown Drug Allergy August, Active Aspirin hives Drug Allergy August, Active SOCIAL HISTORY Never Assessed PLAN OF CARE Activity Details Follow Up 4 Weeks Reason:FU labs VITAL SIGNS Height 63 in 2016-08-31 Weight 201 lbs 2016-08-31 Temperature 98.1 degrees Fahrenheit 2016-08-31 Heart Rate 80 bpm 2016-08-31 Respiratory Rate 18 2016-08-31 BMI 35.60 kg/m2 2016-08-31 Blood pressure systolic 120 mmHg 2016-08-31 Blood pressure diastolic 80 mmHg 2016-08-31 MEDICATIONS Medication Instructions Dosage Frequency Start Date End Date Duration Status Fluoxetine 20 mg Orally Once a day 1 capsule in the morning 24h August, 30 day(s) Active MetFORMIN HCl ER 500 mg Orally twice a day 1 tablet with evening meal 12h August, 30 day(s) Active Synthroid 50 mcg Orally Once a day 1 tablet on an empty stomach in the morning 24h August, 30 day(s) Active Bactrim DS 800-160 mg Orally Twice a day 1 tablet 12h August,August 07 days Active Mobic 7.5 mg Orally twice a day 1 tablet 12h August, Nov, 30 day(s) Active RESULTS Name Result Date Reference Range TSH W/ FREE T4 2016-08-31 TSH 3.510 0.450-4.500 T4,Free(Direct) 0.93 0.82-1.77 CBC 2016-08-31 WBC 7.8 3.4-10.8 RBC 4.99 3.77-5.28 Hemoglobin 15.3 11.1-15.9 Hematocrit 45.8 34.0-46.6 MCV 92 79-97 MCH 30.7 26.6-33.0 MCHC 33.4 31.5-35.7 RDW 12.8 12.3-15.4 Platelets 260 150-379 Neutrophils 57 Lymphs 30 Monocytes 11 Eos 1 Basos 1 Neutrophils (Absolute) 4.5 1.4-7.0 Lymphs (Absolute) 2.3 0.7-3.1 Monocytes(Absolute) 0.9 0.1-0.9 Eos (Absolute) 0.0 0.0-0.4 Baso (Absolute) 0.0 0.0-0.2 Immature Granulocytes 0 Immature Grans (Abs) 0.0 0.0-0.1 CULTURE, URINE 2016-08-31 Urine Culture, Routine MICROALBUMIN/CREATININE RATIO, URINE 2016-08-31 Creatinine, Urine 199.8 Not Estab. Microalbumin, Urine 370.6 Not Estab. Microalb/Creat Ratio 185.5 0.0-30.0 LIPID PANEL 2016-08-31 Cholesterol, Total 179 100-199 Triglycerides 75 0-149 HDL Cholesterol 46 >39 VLDL Cholesterol Mehran 15 5-40 LDL Cholesterol Calc 118 0-99 Comment: CMP 2016-08-31 Glucose, Serum 93 65-99 BUN 13 6-20 Creatinine, Serum 0.86 0.57-1.00 eGFR If NonAfricn Am 87 >59 eGFR If Africn Am 100 >59 BUN/Creatinine Ratio 15 9-23 Sodium, Serum 141 134-144 Potassium, Serum 4.0 3.5-5.2 Chloride, Serum 99 96-106 Carbon Dioxide, Total 23 18-29 Calcium, Serum 9.9 8.7-10.2 Protein, Total, Serum 7.6 6.0-8.5 Albumin, Serum 4.7 3.5-5.5 Globulin, Total 2.9 1.5-4.5 A/G Ratio 1.6 1.2-2.2 Bilirubin, Total 1.0 0.0-1.2 Alkaline Phosphatase, S 120 39-117 AST (SGOT) 18 0-40 ALT (SGPT) 27 0-32 A1C (IN HOUSE) 2016-08-31 A1C IN HOUSE 5.8 4.3 - 5.6 % Previous A1c Lot [id number] Exp date 06/2018 MICROALBUMIN, URINE (IN HOUSE) 2016-08-31 MICROALBUMIN Abnormal Lot # [id number] Exp date 08/07/2017 Clarity Cloudy Color Dark Yellow ALB 150 CRE 200 A:C (IN HOUSE) 30-300 Control Control Lot # Exp date TSH W/ FREE T4 2016-08-31 TSH 3.510 0.450-4.500 T4,Free(Direct) 0.93 0.82-1.77 CBC 2016-08-31 WBC 7.8 3.4-10.8 RBC 4.99 3.77-5.28 Hemoglobin 15.3 11.1-15.9 Hematocrit 45.8 34.0-46.6 MCV 92 79-97 MCH 30.7 26.6-33.0 MCHC 33.4 31.5-35.7 RDW 12.8 12.3-15.4 Platelets 260 150-379 Neutrophils 57 Lymphs 30 Monocytes 11 Eos 1 Basos 1 Neutrophils (Absolute) 4.5 1.4-7.0 Lymphs (Absolute) 2.3 0.7-3.1 Monocytes(Absolute) 0.9 0.1-0.9 Eos (Absolute) 0.0 0.0-0.4 Baso (Absolute) 0.0 0.0-0.2 Immature Granulocytes 0 Immature Grans (Abs) 0.0 0.0-0.1 CULTURE, URINE 2016-08-31 Urine Culture, Routine Final report Result 1 MICROALBUMIN/CREATININE RATIO, URINE 2016-08-31 Creatinine, Urine 199.8 Not Estab. Microalbumin, Urine 370.6 Not Estab. Microalb/Creat Ratio 185.5 0.0-30.0 LIPID PANEL 2016-08-31 Cholesterol, Total 179 100-199 Triglycerides 75 0-149 HDL Cholesterol 46 >39 VLDL Cholesterol Mehran 15 5-40 LDL Cholesterol Calc 118 0-99 Comment: CMP 2016-08-31 Glucose, Serum 93 65-99 BUN 13 6-20 Creatinine, Serum 0.86 0.57-1.00 eGFR If NonAfricn Am 87 >59 eGFR If Africn Am 100 >59 BUN/Creatinine Ratio 15 9-23 Sodium, Serum 141 134-144 Potassium, Serum 4.0 3.5-5.2 Chloride, Serum 99 96-106 Carbon Dioxide, Total 23 18-29 Calcium, Serum 9.9 8.7-10.2 Protein, Total, Serum 7.6 6.0-8.5 Albumin, Serum 4.7 3.5-5.5 Globulin, Total 2.9 1.5-4.5 A/G Ratio 1.6 1.2-2.2 Bilirubin, Total 1.0 0.0-1.2 Alkaline Phosphatase, S 120 39-117 AST (SGOT) 18 0-40 ALT (SGPT) 27 0-32 A1C (IN HOUSE) 2016-08-31 A1C IN HOUSE 5.8 4.3 - 5.6 % Previous A1c Lot [id number] Exp date 06/2018 MICROALBUMIN, URINE (IN HOUSE) 2016-08-31 MICROALBUMIN Abnormal Lot # [id number] Exp date 08/07/2017 Clarity Cloudy Color Dark Yellow ALB 150 CRE 200 A:C (IN HOUSE) 30-300 Control Control Lot # Exp UA LONG DIP (IN HOUSE) 2016-08-31 Lot # [id number] Exp date 08/07/2017 Clarity Cloudy Color Dark Yellow Odor None GLU Negative CELESTE 1+ KET 2+ SG 1.020 BLO 2+ pH 5.5 Protein 2+ URO 1.0 NIT Negative NAIF 2+ Lot # Exp date PROCEDURES Procedure Date Ordered Result Body Site [facility] August 31, 2016 MICROALBUMIN, SEMIQUANT August 31, 2016 GLYCATED HEMOGLOBIN TEST August 31, 2016 VENIPUNCT, ROUTINE* August 31, 2016 IMMUNIZATIONS No Known Immunizations MEDICAL (GENERAL) HISTORY Type Description Date Medical History Hypothyroidism Medical History type II diabetes Medical History Depressive disorder, not elsewhere classified Medical History Bipolar disorder, unspecified Medical History Other chronic pain Medical History Degenerative Disk Medical History COPD Medical History Chronic Migraines Medical History Anxiety Medical History MPD Medical History Paranoid Schizophrenia Medical History Nondependent amphetamine or related acting sympathomimetic abuse, unspecified Surgical History cholecystectomy Surgical History hysterectomy, total with unilateral salpingo-oophorectomy ( USO) Surgical History hernia repair-hiatal Hospitalization History Surgery(s)/Childbirth(s) only
--- OUTSIDE RECORDS SUMMARY | 2017-12-24 02:57 | XMS REPORT ---
Author Author YOGESH DALTON [facility] Address [address] [place] [address] Care Team Providers Care Fulfillment Associate Name Role Phone YOGESH DALTON Unavailable PROBLEMS Type Condition ICD9-CM Code CQF00-AC Code Onset Dates Condition Status SNOMED Code Problem Psychosis, unspecified psychosis type F29 Active 07100468 Problem Lumbago with sciatica, left side M54.42 Active 066517250 Problem Personality disorder F60.9 Active 15355492 Problem Right sciatic nerve pain M54.31 Active 85749921 Problem Bipolar disease, chronic F31.9 Active 29689521 Problem Depressive disorder, not elsewhere classified F32.9 Active 00040860 Problem Other chronic pain G89.29 Active 49412507 Problem Lumbago with sciatica, right side M54.41 Active 179745090106134 Problem Morbid (severe) obesity due to excess calories E66.01 Active 09087308448515 Problem Body mass index (BMI) of 40.0-44.9 in adult Z68.41 Active 999196011 Problem Degenerative joint disease M19.90 Active 884475451 Problem Chronic pain G89.29 Active 38602169 Problem COPD (chronic obstructive pulmonary disease) J44.9 Active 70612133 Problem Panic disorder with agoraphobia F40.01 Active 41476522 Problem Cigarette nicotine dependence without complication F17.210 Active 57099710 Problem Xanax use disorder, moderate F13.20 Active 031056794 Problem Acquired hypothyroidism E03.9 Active 147790911 Problem Methamphetamine use disorder, severe, 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 Active 30548913 Problem Pre-diabetes R73.03 Active 129591160 Problem Opioid use disorder, moderate, dependence F11.20 Active 75265373 ALLERGIES Substance Reaction Event Type Date Status Tramadol HCl nausea and vomiting Drug Allergy Apr, Active Penicillin V Potassium anaphylaxis Drug Allergy Apr, Active Keflex anaphylaxis Drug Allergy Apr, Active Ibuprofen Unknown Drug Allergy Apr, Active Aspirin hives Drug Allergy Apr, Active ENCOUNTERS Encounter Location Date Diagnosis [facility] [id number] [place] [address] 56573- 8166 Dec, [facility] [id number] [place] [address] 54465- 0080 Oct, [facility] [id number] [place] [address] 59709- 9385 Sep, [facility] [id number] [place] [address] 91553- 5186 Sep, Methamphetamine use disorder, severe, 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 ; Psychosis, unspecified psychosis type F29 ; Personality disorder F60.9 ; Opioid use disorder, moderate, dependence F11.20 ; Xanax use disorder, moderate F13.20 and BMI 40.0-44.9, adult Z68.41 [facility] [id number] [place] [address] 31122- 5552 Sep, Depressive disorder, not elsewhere classified F32.9 and Psychosis, unspecified psychosis type F29 [facility] [id number] [place] [address] 94691- 0066 August, [place] [id number] [place] [address] 78230- 5408 August, Depressive disorder, not elsewhere classified F32.9 and Psychosis, unspecified psychosis type F29 [facility] [id number] [place] [address] 81210- 6436 August, [place] [id number] [place] [address] 92398- 2627 August, Lumbago with sciatica, right side M54.41 and Other chronic pain G89.29 [facility] [address] [place] [address] 38436 -7795 Jul, Right sciatic nerve pain M54.31 [facility] [id number] [place] [address] 48918- 4277 Jul, Acquired hypothyroidism E03.9 [place] [address] [place] [address] 74462- 2856 Jul, Depressive disorder, not elsewhere classified F32.9 and Psychosis, unspecified psychosis type F29 [place] [id number] [place] [address] 19869- 1322 Jul, Acquired hypothyroidism E03.9 ; Lumbago with sciatica, right side M54.41 and Lumbar radiculopathy, acute M54.16 [place] [id number] [place] [address] 13508- 0441 Jul, Methamphetamine use disorder, severe, 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 ; Psychosis, unspecified psychosis type F29 ; Personality disorder F60.9 ; Opioid use disorder, moderate, dependence F11.20 ; Xanax use disorder, moderate F13.20 and BMI 40.0-44.9, adult Z68.41 [place] [id number] [place] [address] 32716- 3482 Jun, Methamphetamine use disorder, severe, 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 ; Psychosis, unspecified psychosis type F29 ; Personality disorder F60.9 ; Opioid use disorder, moderate, dependence F11.20 and Xanax use disorder, moderate F13.20 [place] [address] [place] [address] 33237- 5190 Jun, Depressive disorder, not elsewhere classified F32.9 and Psychosis, unspecified psychosis type F29 [place] [address] [place] [address] 62717- 7636 Jun, Lumbar radiculopathy, acute M54.16 [place] [id number] [place] [address] 34487- 9956 Jun, Lumbar radiculopathy, acute M54.16 ; Strain of abdominal wall, initial encounter S39.011A and BMI 40.0-44.9, adult Z68.41 [place] [id number] [place] [address] 42580- 0262 Jun, [place] [id number] [place] [address] 03234- 9870 May, [place] [address] 988880- 4715 May, Methamphetamine use disorder, severe, 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 ; Psychosis, unspecified psychosis type F29 ; Personality disorder F60.9 ; Opioid use disorder, moderate, dependence F11.20 and Xanax use disorder, moderate F13.20 [place] [id number] [place] [address] 37468- 8523 May, [place] [address] 04560- 1972 May, [place] [address] 63036- 7274 May, Lumbago with sciatica, left side M54.42 ; Lumbago with sciatica, right side M54.41 ; Other chronic pain G89.29 ; Weight gain R63.5 ; Acquired hypothyroidism E03.9 and BMI 40.0-44.9, adult Z68.41 [place] [id number] [place] [address] 34030- 2171 Apr, Cigarette nicotine dependence without complication F17.210 [place] [id number] [place] [address] 68375- 2102 Apr, Acute bilateral low back pain without sciatica M54.5 [place] [id number] [place] [address] 61669- 5429 Apr, Methamphetamine use disorder, severe, 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 ; Psychosis, unspecified psychosis type F29 ; Personality disorder F60.9 ; Opioid use disorder, moderate, dependence F11.20 and Xanax use disorder, moderate F13.20 [facility] [id number] [place] [address] 04057 -5232 12 Ye, 2018 Wheezing R06.2 and Bronchitis J40 [place] [id number] [place] [address] 64423- 2527 Apr, Bronchitis J40 ; Cigarette nicotine dependence without complication F17.210 and Bipolar disease, chronic F31.9 [place] [id number] [place] [address] 10280- 6029 Mar, Acquired hypothyroidism E03.9 [place] [address] 41593- 3264 Mar, Acquired hypothyroidism E03.9 [place] [address] 39745- 7526 Mar, Orthostatic hypotension I95.1 and Non-intractable vomiting with nausea, unspecified vomiting type R11.[address] 41094- 8194 14 Mar, 2017 Strain of lumbar region, initial encounter S39.012A [place] [address] 64594- 8985 Mar, [facility] [address] [place] [address] 32995 -2005 07 Mar, 2017 Bronchitis J40 [place] [address] 75380- 1037 05 Mar, 2017 Degenerative joint disease M19.90 ; Elevated LFTs R79.89 ; Adenopathy R59.1 ; Drug use F19.90 ; Pre-diabetes R73.03 and COPD (chronic obstructive pulmonary disease) J44.9 [facility] [id number] [place] [address] 11399 -3879 30 Feb, 2017 Left hand pain M79.642 and Contusion of left hand, initial encounter S60.222A [place] [address] 90377- 5760 07 Feb, 2017 Body aches R52 and Flu-like symptoms R68.89 [place] [address] [place] [address]- 1121 Jan, [place] [id number] [place] [address] 65346- 2341 Jan, Bipolar disease, chronic F31.9 ; Acquired hypothyroidism E03.9 and Encounter for immunization Z23 [facility] [place] [id number] [place] [address] 66507 -5174 05 Dec, 2016 Crushing injury of left wrist and hand, initial encounter S67.42XA [place] [address] 63843- 5438 Sep, [place] [address] 62005- 3063 Sep, Bipolar disease, chronic F31.9 ; Panic disorder with agoraphobia F40.01 and Proteinuria, unspecified type R80.9 [place] [address] 20037- 8065 August, [place] [address] 86463- 6080 August, Degenerative joint disease M19.90 ; Left-sided chest wall pain R07.89 ; Bipolar disease, chronic F31.9 ; Type 2 diabetes mellitus without complication, without long-term current use of insulin E11.9 ; Acquired hypothyroidism E03.9 and Acute cystitis without hematuria N30.00 [place] [id number] [place] [address] 02694- 8564 Mar, [place] [id number] [place] [address] 07708- 3760 Feb, [facility] [address] 12427 -1250 Feb, Right hand pain M79.641 [facility] [place] [id number] [place] [address] 38178 -9477 Feb, Bronchitis J40 ; Acute non-recurrent pansinusitis J01.40 and Seasonal allergic rhinitis due to other allergic trigger J30.89 [facility] [address] [address]- 5401 29 Dec, 2015 [facility] [address] -7615 Mar, Left-sided chest wall pain R07.89 and Chronic pain G89.29 [facility] [address] [address]- 7491 Jul, [facility] [address] [facility] [id number] [address]- 6793 Jul, [facility] [id number] [place] [address] 94607- 9832 May, [facility] [id number] [address]- 8525 May, [facility] [id number] [place] [address] 47173- 5707 Apr, [facility] [address] [address]- 0964 Apr, [facility] [address] [address]- 3360 Mar, [facility] [address] [address]- 4545 Mar, [facility] [address] [address]- 7730 Feb, [facility] [address] 1495 Feb, [facility] [id number]- 5296 Jan, [facility] [address] 0713 Jan, [facility] [address] [address]- 2682 Jan, 2014 [facility] [place] [facility] [address] [id number] [place] [address]- 2275 28 Jan, 2014 [facility] [place] [facility] [address] [id number] [place] [address]- 7193 15 Jan, 2014 [facility] [place] [facility] [address] [id number] [place] [address]- 2365 15 Jan, 2014 [facility] [place] [facility] [address] [id number] [place] [address]- 2987 19 Dec, 2013 [facility] [place] [facility] [address] [id number] [place] [address]- 7973 19 Dec, 2013 [facility] [place] [facility] [address] [id number] [place] [address]- 9774 19 Dec, 2013 [facility] [place] [facility] [address] [id number] [place] [address]- 5723 19 Dec, 2013 [facility] [place] [facility] [address] [id number] [address]- 9353 18 Dec, 2013 [facility] [place] [facility] [address] [id number] [place] [address]- 5395 18 Dec, 2013 [facility] [place] [facility] [address] [id number] [place] [address]- 5359 16 Dec, 2013 [facility] [place] [facility] [address] [id number] [address]- 2112 16 Dec, 2013 [facility] [place] [facility] [address] [id number] [address]- 0065 17 Sep, 2013 [facility] [place] [facility] [address] [id number] [address]- 4506 17 Sep, 2013 [facility] [place] [facility] [address] [id number] [address]- 9504 15 Jul, 2013 [facility] [place] [facility] [address] [id number] [address]- 7600 15 Jul, 2013 [facility] [place] [facility] [address] [id number] [place] [address]- 6878 Jul, [facility] [place] [facility] [address] [id number] [place] [address]- 8467 Jul, [facility] [place] [facility] [address] [id number] [place] [address]- 8268 Jul, [facility] [place] [facility] [address] [id number] [place] [address]- 0824 Jul, [facility] [place] [facility] [address] [id number] [place] [address]- 1850 Jul, [facility] [place] [facility] [address] [id number] [place] [address]- 3336 Jul, [facility] [place] [facility] [address] [id number] [place] [address]- 7145 Jun, [facility] [place] [facility] [address] [id number] [place] [address]- 9715 Jun, [facility] [place] [facility] [address] [id number] [place] [address]- 9576 May, [facility] [place] [facility] [address] [id number] [place] [address]- 9292 May, [facility] [place] [facility] [address] [id number] [place] [address]- 3568 May, [facility] [place] [facility] [address] [id number] [place] [address]- 0394 May, [facility] [place] [facility] [address] [id number] [place] [address]- 1830 Apr, [facility] [place] [facility] [address] [id number] [place] [address]- 2277 Apr, [facility] [place] [facility] [address] [id number] [place] [address]- 7490 Mar, [facility] [place] [facility] [address] [id number] [place] [address]- 6635 Mar, [facility] [place] [facility] [address] [id number] [place] [address]- 3487 Feb, [facility] [place] [facility] [address] [id number] [place] [address]- 5400 Feb, [facility] [place] [facility] [address] [id number] [place] [address]- 4757 Feb, [facility] [place] [facility] [address] [id number] [place] [address]- 3699 Feb, [facility] [place] [facility] [address] [id number] [place] [address]- 9065 Jan, [facility] [place] [facility] [address] [id number] [place] [address]- 9323 Jan, [facility] [place] [facility] [address] [id number] [place] [address]- 3263 Jan, [facility] [place] [facility] [address] [id number] [place] [address]- 7684 Jan, [facility] [place] [facility] [address] [id number] [place] [address]- 3763 Jan, [facility] [place] [facility] [address] [id number] [address]- 8749 Dec, [facility] [place] [facility] [address] [id number] [address]- 5716 Dec, [facility] [place] [facility] [address] [id number] [address]- 3499 Nov, [facility] [place] [facility] [address] [id number] [place] [address]- 2549 Sep, [facility] [place] [facility] [address] [id number] [place] [address]- 9156 August, [facility] [place] [facility] [address] [id number] [place] [address]- 2546 August, [facility] [place] [facility] [address] [id number] [place] [address]- 5031 30 Jul, 2012 [facility] [address] [id number] [place] [address]- 9110 Jul, [facility] [address] [id number] [place] [address]- 4232 Jul, [facility] [address] [id number] [place] [address]- 5974 Jul, [facility] [address] [id number] [place] [address]- 1136 Jul, [facility] [address] [id number] [place] [address]- 7380 Jul, [facility] [address] [id number] [place] [address]- 6774 Jul, [facility] [address] [id number] [place] [address]- 4097 Jun, [facility] [address] [id number] [place] [address]- 0726 Jun, [facility] [address] [id number] [place] [address]- 0827 May, [facility] [address] [id number] [place] [address]- 7635 Apr, [facility] [address] [id number] [place] [address]- 1711 Apr, [facility] [address] [id number] [place] [address]- 1551 Mar, [facility] [address] [id number] [place] [address]- 2070 Mar, [facility] [address] [id number] [place] [address]- 4680 Mar, [facility] [address] [id number] [place] [address]- 7369 Feb, [facility] [place] [facility] [address] [id number] [place] [address]- 7400 Feb, [facility] [place] [facility] [address] [id number] [place] [address]- 2877 Feb, [facility] [place] [facility] [address] [id number] [place] [address]- 1951 Feb, [facility] [place] [facility] [address] [id number] [place] [address]- 0789 Feb, [facility] [place] [facility] [address] [id number] [place] [address]- 0845 Feb, [facility] [place] [facility] [address] [id number] [place] [address]- 0992 Feb, [facility] [place] [facility] [address] [id number] [place] [address]- 0726 16 Feb, 2012 [facility] [place] [facility] [address] [id number] [place] [address]- 3847 14 Feb, 2012 [facility] [place] [facility] [address] [id number] [place] [address]- 8218 Feb, [facility] [place] [facility] [address] [id number] [place] [address]- 5851 Feb, [facility] [place] [facility] [address] [id number] [place] [address]- 8310 27 Dec, 2011 [facility] [place] [facility] [address] [id number] [place] [address]- 7322 07 Dec, 2011 [facility] [place] [facility] [address] [id number] [place] [address]- 4802 30 Nov, 2011 [facility] [place] [facility] [address] [id number] [place] [address]- 9344 Nov, [facility] [place] [facility] [address] [id number] [place] [address]- 3430 Oct, [facility] [place] [facility] [address] [id number] [place] [address]- 7655 Oct, [facility] [place] [facility] [address] [id number] [place] 1400 Sep, [facility] [place] [facility] [address] [id number] [place] [address]- 8766 May, [facility] [place] [facility] [address] [id number] [place] [address]- 1976 May, [facility] [place] [facility] [address] [id number] [place] [address]- 2288 May, [facility] [place] [facility] [address] [id number] [place] [address]- 2705 Apr, [facility] [place] [facility] [address] [id number] [place] 7119 Mar, [facility] [place] [facility] [address] [id number] [place] [address]- 0967 Mar, [facility] [place] [facility] [address] [id number] [address]- 8938 Feb, [facility] [place] [facility] [address] [id number] [address]- 4048 Feb, [facility] [place] [facility] [address] [id number] [place] [address]- 9331 Feb, [facility] [place] [facility] [address] [id number] [address]- 4882 Jan, [facility] [place] [facility] [address] [id number] [place] [address]- 1448 Jan, [facility] [place] [facility] [address] [id number] [address]- 3444 Dec, [facility] [place] [facility] [address] [id number] [address]- 8360 Mar, [facility] [place] [facility] [address] [id number] [place] [address]- 8784 Feb, [facility] [place] [facility] [address] [id number] [address]- 2546 10 Feb, 2009 [facility] [address] [id number] [address]- 1866 Feb, [facility] [id number] [address] Jan, [facility] [id number] [address] Dec, [facility] [id number] [address] Nov, [facility] [id number] [place] [id number] Sep, [facility] [id number] [address] August, [facility] [id number] [address] May, [facility] [address] [id number] [address] Mar, IMMUNIZATIONS No Known Immunizations SOCIAL HISTORY Never Assessed REASON FOR VISIT Blood Pressure-Bj GASCA PLAN OF CARE Activity Details Follow Up 3 Months Reason: VITAL SIGNS Height 63 in 2017-04-11 Weight 207.8 lbs 2017-04-11 Temperature 98.8 degrees Fahrenheit 2017-04-11 Heart Rate 74 bpm 2017-04-11 Respiratory Rate 18 2017-04-11 BMI 36.81 kg/m2 2017-04-11 Blood pressure systolic 112 mmHg 2017-04-11 Blood pressure diastolic 68 mmHg 2017-04-11 MEDICATIONS Medication Instructions Dosage Frequency Start Date End Date Duration Status Fluoxetine 40 mg Orally Once a day 1 capsule in the morning 24h August, 90 days Active Mobic 15 MG Orally Once a day 1 tablet 24h August, 3 Sep, 2017 30 day(s) Active Womens One Daily - Active Zithromax Z-Terry 250 MG Orally Once a day 2 tablets on the first day, then 1 tablet daily for 4 days 24h Apr, Apr, 5 day(s) Active MetFORMIN HCl ER 500 mg Orally twice a day 1 tablet with evening meal 12h August, 90 days Not-Taking PredniSONE 20 mg Orally Once a day 2 tablets 24h Apr, Apr, 05 days Active Nicoderm CQ 21 MG/24HR Transdermal Once a day 1 patch to skin 24h Apr, May, 30 day(s) Active Cyclobenzaprine HCl 10 MG Orally Three times a day PRN 1 tablet as needed Active Synthroid 50 mcg Orally Once a day 1 tablet on an empty stomach in the morning 24h August, 90 days Active ProAir HFA 108 (90 Base) MCG/ACT Inhalation every 6 hrs 2 puffs as needed 6h Mar, Active Promethazine HCl 12.5 MG Orally every 6 hrs 1 tablet as needed 6h Mar, Apr, 05 days Active EpiPen 0.3 mg/0.3ml Injection once as directed Sep, 1 dose Not-Taking RESULTS No Results PROCEDURES No Known [...] harming, suicide ideat and attempts. Rios Shepherd, [place], [place] last around 2006 Hospitalization History left foot swollen, stepped in [facility] 05/02/17
--- OUTSIDE RECORDS SUMMARY | 2017-12-24 02:58 | XMS REPORT ---
Author Author KYLE HENDRIX Organization [facility] Address [address] [place] [address] Care Team Providers Care Software Project Lead Name Role Phone KYLE HENDRIX Unavailable PROBLEMS Type Condition ICD9-CM Code [id number] Code Onset Dates Condition Status SNOMED Code Problem Opioid use disorder, moderate, dependence F11.20 Active 34080769 Problem Personality disorder F60.9 Active 38204062 Problem Psychosis, unspecified psychosis type F29 Active 61060491 Problem Depressive disorder, not elsewhere classified F32.9 Active 62875402 Problem Morbid (severe) obesity due to excess calories E66.01 Active 30524882991010 Problem Lumbago with sciatica, right side M54.41 Active 699072950903193 Problem Lumbago with sciatica, left side M54.42 Active 394030362 Problem Body mass index (BMI) of 40.0-44.9 in adult Z68.41 Active 177689653 Problem Other chronic pain G89.29 Active 09581970 Problem Panic disorder with agoraphobia F40.01 Active 43513972 Problem Degenerative joint disease M19.90 Active 563327817 Problem Bipolar disease, chronic F31.9 Active 56551249 Problem COPD (chronic obstructive pulmonary disease) J44.9 Active 39447387 Problem Pre-diabetes R73.03 Active 257446252 Problem Cigarette nicotine dependence without complication F17.210 Active 15504197 Problem Chronic pain G89.29 Active 71852717 Problem Xanax use disorder, moderate F13.20 Active 851167139 Problem Acquired hypothyroidism E03.9 Active 076881494 Problem Methamphetamine use disorder, severe, 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 Active 60761114 ALLERGIES Substance Reaction Event Type Date Status Tramadol HCl nausea and vomiting Drug Allergy Sep, Active Penicillin V Potassium anaphylaxis Drug Allergy Sep, Active Keflex anaphylaxis Drug Allergy Sep, Active Ibuprofen Unknown Drug Allergy Sep, Active Aspirin hives Drug Allergy Sep, Active ENCOUNTERS Encounter Location Date Diagnosis [facility] [place] [facility] [id number] [place] [address] 97268- 9554 Jul, [place] [address] [id number] [place] [address] 00234- 9538 Jul, [place] [address] [address] [id number] [place] [address] 58359- 2610 Jul, [place] [address] [id number] [place] [address] 74002- 2370 Jun, Methamphetamine use disorder, severe, 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 ; Psychosis, unspecified psychosis type F29 ; Personality disorder F60.9 ; Opioid use disorder, moderate, dependence F11.20 and Xanax use disorder, moderate F13.20 [place] [id number] [place] [address] 43800- 7954 Jun, Depressive disorder, not elsewhere classified F32.9 and Psychosis, unspecified psychosis type F29 [place] [address] [address] [id number] [place] [address] 70949- 8465 Jun, Lumbar radiculopathy, acute M54.16 [place] [address] [id number] [place] [address] 97711- 0402 Jun, Lumbar radiculopathy, acute M54.16 ; Strain of abdominal wall, initial encounter S39.011A and BMI 40.0-44.9, adult Z68.41 [place] [address] [id number] [place] [address] 38448- 4301 Jun, [place] [address] [address] [id number] [place] [address] 79563- 7908 May, [place] [address] [address] [id number] [place] [address] 99143- 4651 May, Methamphetamine use disorder, severe, 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 ; Psychosis, unspecified psychosis type F29 ; Personality disorder F60.9 ; Opioid use disorder, moderate, dependence F11.20 and Xanax use disorder, moderate F13.20 [place] [address] [id number] [place] [address] 07460- 0571 May, [place] [address] 48775- 8449 May, [place] [address] 63198- 4904 May, Lumbago with sciatica, left side M54.42 ; Lumbago with sciatica, right side M54.41 ; Other chronic pain G89.29 ; Weight gain R63.5 ; Acquired hypothyroidism E03.9 and BMI 40.0-44.9, adult Z68.41 [place] [address] 43414- 7935 Apr, Cigarette nicotine dependence without complication F17.210 [place] [address] 16576- 7797 Apr, Acute bilateral low back pain without sciatica M54.5 [place] [address] 21290- 6254 Apr, Methamphetamine use disorder, severe, 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 ; Psychosis, unspecified psychosis type F29 ; Personality disorder F60.9 ; Opioid use disorder, moderate, dependence F11.20 and Xanax use disorder, moderate F13.20 [facility] [id number] [place] [address] 55068 -4129 Apr, Wheezing R06.2 and Bronchitis J40 [place] [address] 61073- 8898 Apr, Bronchitis J40 ; Cigarette nicotine dependence without complication F17.210 and Bipolar disease, chronic F31.9 [place] [address] [id number] [place] [address] 93854- 2071 Mar, Acquired hypothyroidism E03.9 [place] [address] 71149- 1515 Mar, Acquired hypothyroidism E03.9 [place] [id number] [place] [address] 86917- 8702 Mar, Orthostatic hypotension I95.1 and Non-intractable vomiting with nausea, unspecified vomiting type R11.2 [place] [id number] [place] [address] 05061- 1007 14 Mar, 2017 Strain of lumbar region, initial encounter S39.012A [address] 81083- 9541 Mar, [facility] [address] [place] [address] 46135 -0827 Mar, Bronchitis J40 [address] 84453- 0591 05 Mar, 2017 Degenerative joint disease M19.90 ; Elevated LFTs R79.89 ; Adenopathy R59.1 ; Drug use F19.90 ; Pre-diabetes R73.03 and COPD (chronic obstructive pulmonary disease) J44.9 [facility] [address] [place] [id number] [place] [address] 01888 -4350 30 Feb, 2017 Left hand pain M79.642 and Contusion of left hand, initial encounter S60.222A [place] [id number] [place] [address] 56622- 5438 Feb, Body aches R52 and Flu-like symptoms R68.89 [place] [id number] [place] [address] 66457- 1720 Jan, [address] 20656- 8213 18 Jan, 2017 Bipolar disease, chronic F31.9 ; Acquired hypothyroidism E03.9 and Encounter for immunization Z23 [facility] [address] [place] [id number] [place] [address] 35245 -1848 05 Dec, 2016 Crushing injury of left wrist and hand, initial encounter S67.42XA [id number] [place] [address] 22772- 2843 Sep, [address] 86677- 0819 Sep, Bipolar disease, chronic F31.9 ; Panic disorder with agoraphobia F40.01 and Proteinuria, unspecified type R80.[address] 67701- 2454 August, [place] [address] 98695- 1950 August, Degenerative joint disease M19.90 ; Left-sided chest wall pain R07.89 ; Bipolar disease, chronic F31.9 ; Type 2 diabetes mellitus without complication, without long-term current use of insulin E11.9 ; Acquired hypothyroidism E03.9 and Acute cystitis without hematuria N30.[address] 70942- 2572 Mar, [place] [address] 68231- 8197 Feb, [facility] [address] [address]94 -1301 Feb, Right hand pain M79.641 [facility] [address] 54695 -8846 Feb, Bronchitis J40 ; Acute non-recurrent pansinusitis J01.40 and Seasonal allergic rhinitis due to other allergic trigger J30.[address] 59186- 9339 Dec, [facility] [address] 95891 -4453 Mar, Left-sided chest wall pain R07.89 and Chronic pain G89.[address] 13933- 0998 Jul, [place] [address] [id number] [place] [address]- 3667 Jul, [facility] [place] [facility] [address] [id number] [place] 0651 May, [facility] [place] [facility] [address] [id number] [place] 2596 May, [facility] [place] [facility] [address] [id number] [place] 3275 Apr, [facility] [place] [facility] [address] [id number] [place] [address]- 7076 Apr, [facility] [place] [facility] [address] [id number] [place] [address]- 0084 Mar, [facility] [place] [facility] [address] [id number] [place] [address]- 5103 Mar, [facility] [place] [facility] [address] [id number] [place] [address]- 9318 Feb, [facility] [place] [facility] [address] [id number] [place] [address]- 3857 Feb, [facility] [place] [facility] [address] [id number] [place] [address]- 0404 Jan, [facility] [place] [facility] [address] [id number] [place] [address]- 7717 Jan, [facility] [place] [facility] [address] [id number] [place] [address]- 5825 Jan, [facility] [place] [facility] [address] [id number] [place] [address]- 3695 Jan, [facility] [place] [facility] [address] [id number] [place] 1294 Jan, [facility] [place] [facility] [address] [id number] [place] 0512 Jan, [facility] [place] [facility] [address] [id number] [place] [address]- 0988 19 Dec, 2013 [facility] [place] [facility] [address] [id number] [place] [address]- 0689 19 Dec, 2013 [facility] [place] [facility] [address] [id number] [place] [address]- 9716 19 Dec, 2013 [facility] [place] [facility] [address] [id number] [place] [address]- 0076 19 Dec, 2013 [facility] [place] [facility] [address] [id number] [place] [address]- 4626 18 Dec, 2013 [facility] [place] [facility] [address] [id number] [place] [address]- 3589 18 Dec, 2013 [facility] [place] [facility] [address] [id number] [place] [address]- 1389 16 Dec, 2013 [facility] [place] [facility] [address] [id number] [place] [address]- 0701 16 Dec, 2013 [facility] [place] [facility] [address] [id number] [place] [address]- 4568 17 Sep, 2013 [facility] [place] [facility] [address] [id number] [place] [address]- 2932 17 Sep, 2013 [facility] [place] [facility] [address] [id number] [place] [address]- 5164 15 Jul, 2013 [facility] [place] [facility] [address] [id number] [address]- 1178 15 Jul, 2013 [facility] [place] [facility] [address] [id number][place] [address]- 4160 10 Jul, 2013 [facility] [place] [facility] [address] [id number] [place] [address]- 2227 10 Jul, 2013 [facility] [place] [facility] [address] [id number] [address]- 4258 03 Jul, 2013 [facility] [place] [facility] [address] [id number] [place] [address]- 0759 03 Jul, 2013 [facility] [place] [facility] [address] [id number] [place] [address]- 3793 Jul, [facility] [place] [facility] [address] [id number] [place] [address]- 6901 Jul, [facility] [place] [facility] [address] [id number] [place] 9596 Jun, [facility] [place] [facility] [address] [id number] [place] [address]- 9814 Jun, [facility] [place] [facility] [address] [id number] [place] [address]- 1867 May, [facility] [place] [facility] [address] [id number] [place] [address]- 5099 May, [facility] [place] [facility] [address] [id number] [place] [address]- 4656 May, [facility] [place] [facility] [address] [id number] [place] [address]- 9140 May, [facility] [place] [facility] [address] [id number] [place] [address]- 6634 Apr, [facility] [place] [facility] [address] [id number] [place] [address]- 3995 Apr, [facility] [place] [facility] [address] [facility] [id number] [place] [address]- 2752 Mar, [facility] [place] [facility] [address] [id number] [place] [address]- 5796 Mar, [facility] [place] [facility] [address] [id number] [place] [address]- 5613 Feb, [facility] [place] [facility] [address] [id number] [place] [address]- 0724 Feb, [facility] [place] [facility] [address] [facility] [id number] [place] [address]- 6613 Feb, [facility] [place] [facility] [address] [id number] [place] [address]- 4242 Feb, [facility] [place] [facility] [address] [id number] [place] [address]- 7394 Jan, [facility] [place] [facility] [address] [id number] [place] [address]- 2848 Jan, [facility] [place] [facility] [address] [id number] [place] [address]- 7548 Jan, [facility] [place] [facility] [address] [id number] [place] [address]- 3290 Jan, [facility] [place] [facility] [address] [id number] [place] [address]- 1016 Jan, [facility] [place] [facility] [address] [id number] [place] [address]- 4265 Dec, [facility] [place] [facility] [address] [id number] [place] [address]- 6226 Dec, [facility] [place] [facility] [address] [id number] [place] [address]- 8868 Nov, [facility] [place] [facility] [address] [id number] [place] [address]- 4384 Sep, [facility] [place] [facility] [address] [id number] [place] [address]- 0082 August, [facility] [place] [facility] [address] [id number] [place] [address]- 7856 August, [facility] [place] [facility] [address] [id number] [address]- 5473 Jul, [facility] [place] [facility] [address] [id number] [place] [address]- 8606 Jul, [facility] [place] [facility] [address] [id number] [place] [address]- 8088 Jul, [facility] [place] [facility] [address] [id number] [place] [address]- 9283 Jul, [facility] [place] [facility] [address] [id number] [place] [address]- 1353 Jul, [facility] [address] [id number] [place] [address]- 3559 Jul, [facility] [place] [facility] [address] [id number] [place] [address]- 5281 Jul, [facility] [address] [id number] [place] [address]- 5006 Jun, [facility] [place] [facility] [address] [id number] [place] [address]- 8267 Jun, [facility] [address] [id number] [place] [address]- 1216 May, [facility] [place] [facility] [address] [id number] [place] [address]- 8232 Apr, [facility] [address] [id number] [place] [address]- 1171 Apr, [facility] [address] [id number] [place] [address]- 3082 Mar, [facility] [address] [id number] [place] [address]- 0043 Mar, [facility] [address] [id number] [place] [address]- 3046 Mar, [facility] [place] [facility] [address] [id number] [place] [address]- 4149 Feb, [facility] [place] [facility] [address] [id number] [place] [address]- 3445 Feb, [facility] [place] [facility] [address] [id number] [place] [address]- 1102 Feb, [facility] [place] [facility] [address] [id number] [place] [address]- 4012 Feb, [facility] [place] [facility] [address] [id number] [place] [address]- 1313 Feb, [facility] [place] [facility] [address] [id number] [place] [address]- 8945 19 Feb, 2012 [facility] [place] [facility] [address] [id number] [place] [address]- 3636 16 Feb, 2012 [facility] [place] [facility] [address] [id number] [place] [address]- 4737 16 Feb, 2012 [facility] [place] [facility] [address] [id number] [place] [address]- 1314 14 Feb, 2012 [facility] [place] [facility] [address] [id number] [place] [address]- 3705 Feb, [facility] [place] [facility] [address] [id number] [place] [address]- 1862 Feb, [facility] [place] [facility] [address] [id number] [place] [address]- 8113 27 Dec, 2011 [facility] [place] [facility] [address] [id number] [place] [address]- 2121 07 Dec, 2011 [facility] [place] [facility] [address] [id number] [place] [address]- 6301 30 Nov, 2011 [facility] [place] [facility] [address] [id number] [place] [address]- 5687 Nov, [facility] [place] [facility] [address] [id number] [place] [address]- 1859 31 Oct, 2011 [facility] [place] [facility] [address] [id number] [place] [address]- 9811 27 Oct, 2011 [facility] [place] [facility] [address] [id number] [place] [address]- 2784 14 Sep, 2011 [facility] [place] [facility] [address] [id number] [place] [address]- 5148 28 May, 2011 [facility] [place] [facility] [address] [id number] [place] [address]- 7496 15 May, 2011 [facility] [place] [facility] [address] [id number], [place] [address]- 2578 May, [facility] [place] [facility] [address] [id number] [place] [address]- 3597 Apr, [facility] [place] [facility] [address] [id number] [place] [address]- 8828 Mar, [facility] [place] [facility] [address] [id number] [place] [address]- 8938 Mar, [facility] [place] [facility] [address] [id number] [place] [address]- 4894 Feb, [facility] [place] [facility] [address] [id number] [place] 1203 Feb, [facility] [place] [facility] [address] [id number] [place] [address]- 6050 Feb, [facility] [place] [facility] [address] [id number] [place] [address]- 9182 Jan, [facility] [place] [facility] [address] [id number] [place] [address]- 1294 Jan, [facility] [place] [facility] [address] [id number], [place] [address]- 9579 Dec, [facility] [place] [facility] [address] [id number], [place] [address]- 0915 Mar, [facility] [place] [facility] [address] [id number], [place] [address]- 1315 Feb, [facility] [place] [facility] [address] [id number], [place] [address]- 5530 10 Feb, 2009 [facility] [place] [facility] [address] [id number], [place] [address]- 9942 02 Feb, 2009 [facility] [place] [facility] [address] [id number][place] [address]- 4006 20 Jan, 2009 [facility] [place] [facility] [address] [id number], [place] [address]- 8280 16 Dec, 2008 [facility] [place] [facility] [address] [facility] [id number] [place] [address]- 0736 Nov, [place] [address] [facility] [id number], [place] [address]- 1973 Sep, [place] [address] [place] [id number] [address]- 2226 August, [place] [address] [facility]] [id number], [place] [address]- 3323 May, [place] [address] [facility] [id number][place] [address]- 8456 Mar, IMMUNIZATIONS No Known Immunizations SOCIAL HISTORY Never Assessed REASON FOR VISIT Lab f/u, pt. states she had a bd anxiety attack last night that threw her into a seizure, went to er last night for the seizure and states she hurt her ribs so was put on medication at ER---YIFAN Clark, Pt. states having bilateral ear pain PLAN OF CARE Activity Details Follow Up 3 Months w me Reason: VITAL SIGNS Height 63 in 2016-09-29 Weight 205.4 lbs 2016-09-29 Temperature 97.8 degrees Fahrenheit 2016-09-29 Heart Rate 88 bpm 2016-09-29 Respiratory Rate 18 2016-09-29 BMI 36.38 kg/m2 2016-09-29 Blood pressure systolic 92 mmHg 2016-09-29 Blood pressure diastolic 66 mmHg 2016-09-29 MEDICATIONS Medication Instructions Dosage Frequency Start Date End Date Duration Status MetFORMIN HCl ER 500 mg Orally twice a day 1 tablet with evening meal 12h August, 30 day(s) Active Synthroid 50 mcg Orally Once a day 1 tablet on an empty stomach in the morning 24h August, 30 day(s) Active Mobic 7.5 mg Orally twice a day 1 tablet 12h August, Nov, 30 day(s) Active Lisinopril 5 mg Orally Once a day 1 tablet 24h Sep, 90 days Active Alprazolam 1 MG Orally Twice a day 1 tablet 12h Active Harold 5-325 MG Orally every 8 hours, PRN 1 tablet as needed Active Fluoxetine 40 mg Orally Once a day 1 capsule in the morning 24h August, Active EpiPen 0.3 mg/0.3ml Injection once as directed Sep, 1 dose Active RESULTS No Results PROCEDURES No Known [...] suicide ideat and attempts. Rios Shepherd, Lacie, [facility] last around 2006 Hospitalization History left foot swollen, stepped in [facility] ER 05/02/17
--- OUTSIDE RECORDS SUMMARY | 2017-12-24 02:58 | XMS REPORT ---
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 Active [id number] Problem COPD (chronic obstructive pulmonary disease) J44.9 Active 80081459 Problem Right sciatic nerve pain M54.31 Active 85309481 Problem Bipolar disease, chronic F31.9 Active 28715248 Problem Body mass index (BMI) of 40.0-44.9 in adult Z68.41 Active 512504162 Problem Other chronic pain G89.29 Active 70896422 Problem Depressive disorder, not elsewhere classified F32.9 Active 54144564 Problem Morbid (severe) obesity due to excess calories E66.01 Active 15322456394451 Problem Chronic pain G89.29 Active 10640336 Problem Acquired hypothyroidism E03.9 Active 664207229 Problem Panic disorder with agoraphobia F40.01 Active 68974377 Problem Degenerative joint disease M19.90 Active 166013499 Problem Xanax use disorder, moderate F13.20 Active 248604679 Problem Methamphetamine use disorder, severe, 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 Active 46616370 Problem Pre-diabetes R73.03 Active 609299256 Problem Opioid use disorder, moderate, dependence F11.20 Active 91045928 Problem Cigarette nicotine dependence without complication F17.210 Active 19041717 Problem Psychosis, unspecified psychosis type F29 Active 11063965 ALLERGIES Substance Reaction Event Type Date Status Tramadol HCl nausea and vomiting Drug Allergy Apr, Active Penicillin V Potassium anaphylaxis Drug Allergy Apr, Active Keflex anaphylaxis Drug Allergy Apr, Active Ibuprofen nausea and vomitting Drug Allergy Apr, Active Aspirin hives Drug Allergy Apr, Active ENCOUNTERS Encounter Location Date Diagnosis [facility] [id number] [place] [address] 90619- 5703 Dec, [facility] [id number] [place] [address] 32767- 1501 Oct, [facility] [id number] [place] [address] 16045 -4333 Sep, 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 [facility] [id number] [place] [address] 29173- 2699 Sep, [facility] [id number] [place] [address] 24147- 9617 Sep, Methamphetamine use disorder, severe, 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 ; Psychosis, unspecified psychosis type F29 ; Personality disorder F60.9 ; Opioid use disorder, moderate, dependence F11.20 ; Xanax use disorder, moderate F13.20 and BMI 40.0-44.9, adult Z68.41 [facility] [id number] [place] [address] 30325- 7309 Sep, Depressive disorder, not elsewhere classified F32.9 and Psychosis, unspecified psychosis type F29 [facility] [id number] [place] [address] 19320- 8467 August, [facility] [id number] [place] [address] 28421- 4496 August, Depressive disorder, not elsewhere classified F32.9 and Psychosis, unspecified psychosis type F29 [facility] [id number] [place] [address] 94118- 2700 August, [facility] [id number] [place] [address] 88088- 6330 August, Lumbago with sciatica, right side M54.41 and Other chronic pain G89.29 [facility] [address] [address] Jul, Right sciatic nerve pain M54.31 [facility] [id number] [place] [address] 08077- 8205 Jul, Acquired hypothyroidism E03.9 [facility] [id number] [place] [address] 03441- 2659 Jul, Depressive disorder, not elsewhere classified F32.9 and Psychosis, unspecified psychosis type F29 [facility] [place] [id number] [place] [address] 16768- 5674 Jul, Acquired hypothyroidism E03.9 ; Lumbago with sciatica, right side M54.41 and Lumbar radiculopathy, acute M54.16 [facility] [id number] [place] [address] 47194- 4292 Jul, Methamphetamine use disorder, severe, 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 ; Psychosis, unspecified psychosis type F29 ; Personality disorder F60.9 ; Opioid use disorder, moderate, dependence F11.20 ; Xanax use disorder, moderate F13.20 and BMI 40.0-44.9, adult Z68.41 [facility] [id number] [place] [address] 20634- 5536 Jun, Methamphetamine use disorder, severe, 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 ; Psychosis, unspecified psychosis type F29 ; Personality disorder F60.9 ; Opioid use disorder, moderate, dependence F11.20 and Xanax use disorder, moderate F13.20 [facility] [id number] [place] [address] 42130- 4709 Jun, Depressive disorder, not elsewhere classified F32.9 and Psychosis, unspecified psychosis type F29 [facility] [id number] [place] [address] 35252- 4218 Jun, Lumbar radiculopathy, acute M54.16 [facility] [id number] [place] [address] 07373- 3221 Jun, Lumbar radiculopathy, acute M54.16 ; Strain of abdominal wall, initial encounter S39.011A and BMI 40.0-44.9, adult Z68.41 [facility] [id number] [place] [address] 67257- 4810 Jun, [facility] [place] [id number] [place] [address] 34648- 4733 May, [facility] [place] [address] 561390- 6942 May, Methamphetamine use disorder, severe, 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 ; Psychosis, unspecified psychosis type F29 ; Personality disorder F60.9 ; Opioid use disorder, moderate, dependence F11.20 and Xanax use disorder, moderate F13.20 [facility] [place] [id number] [place] [address] 29247- 3677 May, [facility] [address] 56802- 2946 May, [facility] [place] [id number] [place] [address] 51341- 9579 May, Lumbago with sciatica, left side M54.42 ; Lumbago with sciatica, right side M54.41 ; Other chronic pain G89.29 ; Weight gain R63.5 ; Acquired hypothyroidism E03.9 and BMI 40.0-44.9, adult Z68.41 [facility] [id number] [place] [address] 61077- 4537 Apr, Cigarette nicotine dependence without complication F17.210 [facility] [address] 65095- 3282 Apr, Acute bilateral low back pain without sciatica M54.5 [facility] [id number] [place] [address] 75029- 4939 Apr, Methamphetamine use disorder, severe, 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 ; Psychosis, unspecified psychosis type F29 ; Personality disorder F60.9 ; Opioid use disorder, moderate, dependence F11.20 and Xanax use disorder, moderate F13.20 [facility] [id number] [place] [address] 75834 -8085 12 Apr, 2017 Wheezing R06.2 and Bronchitis J40 [facility] [place] [address] 75072- 8174 02 Apr, 2017 Bronchitis J40 ; Cigarette nicotine dependence without complication F17.210 and Bipolar disease, chronic F31.9 [facility] [place] [address] 10711- 1542 Mar, Acquired hypothyroidism E03.9 [facility] [place] [address] 65202- 1651 Mar, Acquired hypothyroidism E03.9 [facility] [place] [id number] [place] [address] 60030- 2840 Mar, Orthostatic hypotension I95.1 and Non-intractable vomiting with nausea, unspecified vomiting type R11.2 [facility] [place] [address] 63630- 0711 Mar, Strain of lumbar region, initial encounter S39.012A [facility] [place] [id number] [place] [address] 46360- 5052 Mar, [facility] [id number] [place] [address] 96381 -1556 Mar, Bronchitis J40 [facility] [place] [id number] [place] [address] 20395- 4849 05 Mar, 2017 Degenerative joint disease M19.90 ; Elevated LFTs R79.89 ; Adenopathy R59.1 ; Drug use F19.90 ; Pre-diabetes R73.03 and COPD (chronic obstructive pulmonary disease) J44.9 [facility] [id number] [place] [address] 43296 -4546 Feb, Left hand pain M79.642 and Contusion of left hand, initial encounter S60.222A [facility] [place] [id number] [place] [address] 38905- 8984 07 Feb, 2017 Body aches R52 and Flu-like symptoms R68.89 [place] [place] [id number] [place] [address] 03191- 2393 Jan, [facility] [place] [address] 66187- 3787 Jan, Bipolar disease, chronic F31.9 ; Acquired hypothyroidism E03.9 and Encounter for immunization Z23 [facility] [address] [place] [address] 07365 -5248 05 Dec, 2016 Crushing injury of left wrist and hand, initial encounter S67.42XA [address] 02209- 8907 Sep, [address] 37777- 0590 Sep, Bipolar disease, chronic F31.9 ; Panic disorder with agoraphobia F40.01 and Proteinuria, unspecified type R80.[address] 24224- 4962 August, [address] 84570- 1118 August, Degenerative joint disease M19.90 ; Left-sided chest wall pain R07.89 ; Bipolar disease, chronic F31.9 ; Type 2 diabetes mellitus without complication, without long-term current use of insulin E11.9 ; Acquired hypothyroidism E03.9 and Acute cystitis without hematuria N30.[address] 02096- 3571 Mar, [facility] [address] 80979- 3574 Feb, [facility] [address] 38819 -0556 Feb, Right hand pain M79.641 [facility] [id number] [place] [address] 31452 -1971 Feb, Bronchitis J40 ; Acute non-recurrent pansinusitis J01.40 and Seasonal allergic rhinitis due to other allergic trigger J30.89 [facility] [id number] [place] [address] 96605- 4761 Dec, [facility] [id number] [place] [address] 08484 -4784 Mar, Left-sided chest wall pain R07.89 and Chronic pain G89.29 [facility] [id number] [place] [address] 72751- 1042 Jul, [facility] [id number] [place] [address] 20675- 7367 Jul, [facility] [id number] [place] [address] 59494- 8264 May, [facility] [id number] [place] [address] 08127- 0350 May, [facility] [id number] [place] [address] 03789- 5876 Apr, [facility] [id number] [place] [address] 82667- 5899 Apr, [facility] [id number] [place] [address] 02550- 4574 Mar, [facility] [id number] [place] [address] 74901- 7228 Mar, [facility] [id number] [place] [address] 804744- 5823 Feb, [facility] [id number] [place] [address] 286171- 3763 Feb, [facility] [id number] [place] [address] 37650- 7041 28 Jan, 2014 [facility] [place] [facility] [address] [id number] [place] [address]- 2346 28 Jan, 2014 [facility] [place] [facility] [address] [id number] [place] [address]- 3166 28 Jan, 2014 [facility] [place] [facility] [address] [id number] [place] [address]- 3569 28 Jan, 2014 [facility] [place] [facility] [address] [id number] [place] [address]- 2176 15 Jan, 2014 [facility] [place] [facility] [address] [id number] [place] [address]- 3478 15 Jan, 2014 [facility] [place] [facility] [address] [id number] [place] [address]- 7267 19 Dec, 2013 [facility] [place] [facility] [address] [id number] [place] [address]- 8632 19 Dec, 2013 [facility] [place] [facility] [address] [id number] [place] [address]- 3801 19 Dec, 2013 [facility] [place] [facility] [address] [id number] [place] [address]- 5632 19 Dec, 2013 [facility] [place] [facility] [address] [id number] [place] [address]- 0985 18 Dec, 2013 [facility] [place] [facility] [address] [id number], [place] [address]- 9209 18 Dec, 2013 [facility] [place] [facility] [address] [id number], [place] [address]- 2355 16 Dec, 2013 [facility] [place] [facility] [address] [id number] [place] [address]- 9292 16 Dec, 2013 [facility] [place] [facility] [address] [id number], [place] [address]- 9457 17 Sep, 2013 [facility] [place] [facility] [address] [id number][place] [address]- 3923 17 Sep, 2013 [facility] [place] [facility] [address] [id number] [place] [address]- 1106 15 Jul, 2013 [facility] [place] [facility] [address] [id number] [place] [address]- 8327 15 Jul, 2013 [facility] [place] [facility] [address] [id number] [place] [address]- 7659 Jul, [facility] [place] [facility] [address] [id number] [place] [address]- 8686 Jul, [facility] [place] [facility] [address] [id number] [place] [address]- 1217 Jul, [facility] [place] [facility] [address] [id number] [place] [address]- 3121 Jul, [facility] [place] [facility] [address] [id number] [place] [address]- 9838 Jul, [facility] [place] [facility] [address] [id number] [place] [address]- 4097 Jul, [facility] [place] [facility] [address] [id number] [place] [address]- 4421 Jun, [facility] [place] [facility] [address] [id number] [place] [address]- 6354 Jun, [facility] [place] [facility] [address] [facility] [id number] [place] [address]- 3871 May, [facility] [place] [facility] [address] [id number] [place] [address]- 7963 May, [facility] [place] [facility] [address] [id number] [place] [address]- 9080 May, [facility] [place] [facility] [address] [id number] [place] [address]- 8826 May, [facility] [place] [facility] [address] [id number] [place] [address]- 2920 Apr, [facility] [place] [facility] [address] [id number] [place] [address]- 5424 Apr, [facility] [place] [facility] [address] [id number] [place] [address]- 9672 Mar, [facility] [place] [facility] [address] [id number] [place] 1503 Mar, [facility] [place] [facility] [address] [id number] [place] 5757 Feb, [facility] [place] [facility] [address] [id number] [place] [address]- 2383 Feb, [facility] [place] [facility] [address] [id number] [place] 2285 Feb, [facility] [place] [facility] [address] [id number] [place] [address]- 1264 Feb, [facility] [place] [facility] [address] [id number] [place] [address]- 2527 Jan, [facility] [place] [facility] [address] [id number], [place] [address]- 3034 Jan, [facility] [place] [facility] [address] [id number], [place] [address]- 2241 Jan, [facility] [place] [facility] [address] [facility] [id number], [place] [address]- 4970 Jan, [facility] [place] [facility] [address] [id number], [place] [address]- 8261 Jan, [facility] [place] [facility] [address] [id number], [place] [address]- 7057 Dec, [facility] [place] [facility] [address] [id number], [place] [address]- 7408 Dec, [facility] [place] [facility] [address] [id number], [place] [address]- 1166 Nov, [facility] [place] [facility] [address] [id number], [place] [address]- 0261 Sep, [facility] [place] [facility] [address] [id number], [place] [address]- 9846 August, [facility] [address] [id number] [place] [address]- 9437 August, [facility] [address] [id number] [place] [address]- 6136 Jul, [facility] [address] [id number] [place] [address]- 3950 Jul, [facility] [address] [id number] [place] [address]- 9142 Jul, [facility] [address] [id number] [place] [address]- 6381 Jul, [facility] [address] [id number] [place] [address]- 0624 Jul, [facility] [address] [id number] [place] [address]- 1091 Jul, [facility] [address] [id number] [place] [address]- 7552 Jul, [facility] [address] [id number] [place] [address]- 8129 Jun, [facility] [address] [facility] [id number] [place] [address]- 3209 Jun, [facility] [address] [id number] [place] [address]- 5845 May, [facility] [address] [id number] [place] [address]- 4441 Apr, [facility] [address] [id number] [place] [address]- 9067 Apr, [facility] [address] [id number] [place] [address]- 7058 Mar, [facility] [address] [facility] [id number] [place] [address]- 0182 Mar, [facility] [place] [facility] [address] [id number] [place] [address]- 5965 Mar, [facility] [place] [facility] [address] [id number] [place] [address]- 5979 Feb, [facility] [place] [facility] [address] [id number] [place] [address]- 4079 Feb, [facility] [place] [facility] [address] [id number] [place] [address]- 3783 Feb, [facility] [place] [facility] [address] [id number] [place] [address]- 7196 Feb, [facility] [place] [facility] [address] [id number] [place] [address]- 3865 Feb, [facility] [place] [facility] [address] [id number] [place] [address]- 7801 Feb, [facility] [place] [facility] [address] [id number] [place] [address]- 0209 16 Feb, 2012 [facility] [place] [facility] [address] [id number] [place] [address]- 7265 16 Feb, 2012 [facility] [place] [facility] [address] [id number] [place] [address]- 0428 14 Feb, 2012 [facility] [place] [facility] [address] [id number] [place] [address]- 4557 Feb, [facility] [place] [facility] [address] [id number] [place] [address]- 0357 08 Feb, 2012 [facility] [place] [facility] [address] [id number] [place] [address]- 0042 27 Dec, 2011 [facility] [place] [facility] [address] [id number] [place] [address]- 0866 07 Dec, 2011 [facility] [place] [facility] [address] [id number] [place] [address]- 7468 30 Nov, 2011 [facility] [place] [facility] [address] [id number] [place] [address]- 9345 Nov, [facility] [place] [facility] [address] [id number] [place] [address]- 9659 Oct, [facility] [place] [facility] [address] [id number] [place] [address]- 2782 Oct, [facility] [place] [facility] [address] [id number] [place] [address]- 9339 Sep, [facility] [place] [facility] [address] [id number] [place] [address]- 4833 May, [facility] [place] [facility] [address] [id number] [place] [address]- 3940 May, [facility] [place] [facility] [address] [id number] [place] [address]- 0854 May, [facility] [place] [facility] [address] [id number] [place] [address]- 0490 Apr, [facility] [place] [facility] [address] [id number] [place] [address]- 2206 Mar, [facility] [place] [facility] [address] [id number] [place] 6242 Mar, [facility] [place] [facility] [address] [id number] [place] [address]- 7667 Feb, [facility] [place] [facility] [address] [id number], [place] [address]- 1180 Feb, [facility] [place] [facility] [address] [id number], [place] [address]- 1389 Feb, [facility] [place] [facility] [address] [id number] [place] [address]- 9889 Jan, [facility] [place] [facility] [address] [id number] [place] 5408 Jan, [facility] [place] [facility] [address] [id number] [place] [address]- 2802 Dec, [facility] [place] [facility] [address] [place] [address]- 6666 Mar, [facility] [id number] [place] [address]- 7607 Feb, [facility] [id number], [place] [address]- 1311 Feb, [facility] [id number], [place] [address]- 7871 Feb, [facility] [id number], [place] [address]- 0615 Jan, [facility] [id number] [address] Dec, [facility] [id number], [place] [address] Nov, [facility] [id number], [place] [address] Sep, [facility] [id number] [address] August, [facility] [id number], [place] [address] May, [facility] [id number] [address] Mar, IMMUNIZATIONS No Known Immunizations SOCIAL HISTORY Never Assessed REASON FOR VISIT elias- Jonah Gamboa rN PLAN OF CARE Activity Details Follow Up 4 Weeks Reason: VITAL SIGNS Height 63 in 2017-04-27 Weight 214 lbs 2017-04-27 BMI 37.90 kg/m2 2017-04-27 Blood pressure systolic 122 mmHg 2017-04-27 Blood pressure diastolic 72 mmHg 2017-04-27 MEDICATIONS Medication Instructions Dosage Frequency Start Date End Date Duration Status Doxycycline Hyclate 100 mg Orally every 12 hrs 1 capsule 12h 12 Apr, 2017 Apr, 10 days Active Seroquel 200 MG Orally daily 0.5 tablet every night for 3 nights then take one tablet eveyr night 24h Apr, 30 day(s) Active Seroquel 50 MG Orally Three times a day as needed for mood,anxiety 0.5-1 tablet Apr, 30 day(s) Active Mobic 15 MG Orally Once a day 1 tablet 24h August, Sep, 30 day(s) Not-Taking Synthroid 50 mcg Orally Once a day 1 tablet on an empty stomach in the morning 24h August, 90 days Active Nicoderm CQ 21 MG/24HR Transdermal Once a day 1 patch to skin 24h Apr, May, 30 day(s) Active ProAir HFA 108 (90 Base) MCG/ACT [...] harming, suicide ideat and attempts. Rios [place], [place] last around 2006 Hospitalization History left foot swollen, stepped in [facility] 05/02/17
--- OUTSIDE RECORDS SUMMARY | 2017-12-24 02:59 | XMS REPORT ---
Author Author CORINNE BERGER [facility] Address [address] [place] [address] Care Team Providers Care Collection Card Clerk Name Role Phone CORINNE BERGER Unavailable PROBLEMS Type Condition ICD9-CM Code GVY53-SN Code Onset Dates Condition Status SNOMED Code Problem Psychosis, unspecified psychosis type F29 Active 60272380 Problem Lumbago with sciatica, left side M54.42 Active 700667292 Problem Personality disorder F60.9 Active 76223038 Problem Right sciatic nerve pain M54.31 Active 95671461 Problem Bipolar disease, chronic F31.9 Active 53963628 Problem Depressive disorder, not elsewhere classified F32.9 Active 45896959 Problem Other chronic pain G89.29 Active 50935649 Problem Lumbago with sciatica, right side M54.41 Active 933380360942431 Problem Morbid (severe) obesity due to excess calories E66.01 Active 03224921702480 Problem Body mass index (BMI) of 40.0-44.9 in adult Z68.41 Active 164358909 Problem Degenerative joint disease M19.90 Active 256646088 Problem Chronic pain G89.29 Active 56904258 Problem COPD (chronic obstructive pulmonary disease) J44.9 Active 34296792 Problem Panic disorder with agoraphobia F40.01 Active 06843972 Problem Cigarette nicotine dependence without complication F17.210 Active 45291949 Problem Xanax use disorder, moderate F13.20 Active 964915687 Problem Acquired hypothyroidism E03.9 Active 833359611 Problem Methamphetamine use disorder, severe, 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 Active 78635579 Problem Pre-diabetes R73.03 Active 461631194 Problem Opioid use disorder, moderate, dependence F11.20 Active 33299068 ALLERGIES Substance Reaction Event Type Date Status Tramadol HCl nausea and vomiting Drug Allergy Apr, Active Penicillin V Potassium anaphylaxis Drug Allergy Apr, Active Keflex anaphylaxis Drug Allergy Apr, Active Ibuprofen nausea and vomitting Drug Allergy Apr, Active Aspirin hives Drug Allergy Apr, Active ENCOUNTERS Encounter Location Date Diagnosis [facility] [id number] [place] [address] 93850- 6320 Dec, [facility] [id number] [place] [address] 43745- 7853 Oct, [facility] [id number] [place] [address] 07390- 0862 Sep, [facility] [id number] [place] [address] 57462- 1562 Sep, Methamphetamine use disorder, severe, 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 ; Psychosis, unspecified psychosis type F29 ; Personality disorder F60.9 ; Opioid use disorder, moderate, dependence F11.20 ; Xanax use disorder, moderate F13.20 and BMI 40.0-44.9, adult Z68.41 [facility] [id number] [place] [address] 61142- 5847 Sep, Depressive disorder, not elsewhere classified F32.9 and Psychosis, unspecified psychosis type F29 [facility] [id number] [place] [address] 61322- 0663 August, [facility] [id number] [place] [address] 92979- 8923 August, Depressive disorder, not elsewhere classified F32.9 and Psychosis, unspecified psychosis type F29 [facility] [id number] [place] [address] 73420- 1596 August, [facility] [id number] [place] [address] 04007- 5998 August, Lumbago with sciatica, right side M54.41 and Other chronic pain G89.29 [facility] [id number] [place] [address] 89928 -5589 Jul, Right sciatic nerve pain M54.31 [facility] [id number] [place] [address] 05327- 8114 Jul, Acquired hypothyroidism E03.9 [address] [id number] [place] [address] 79799- 5098 Jul, Depressive disorder, not elsewhere classified F32.9 and Psychosis, unspecified psychosis type F29 [place] [id number] [place] [address] 07437- 9633 Jul, Acquired hypothyroidism E03.9 ; Lumbago with sciatica, right side M54.41 and Lumbar radiculopathy, acute M54.16 [place] [id number] [place] [address] 37889- 1821 Jul, Methamphetamine use disorder, severe, 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 ; Psychosis, unspecified psychosis type F29 ; Personality disorder F60.9 ; Opioid use disorder, moderate, dependence F11.20 ; Xanax use disorder, moderate F13.20 and BMI 40.0-44.9, adult Z68.41 [place] [id number] [place] [address] 41950- 7256 Jun, Methamphetamine use disorder, severe, 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 ; Psychosis, unspecified psychosis type F29 ; Personality disorder F60.9 ; Opioid use disorder, moderate, dependence F11.20 and Xanax use disorder, moderate F13.20 [place] [id number] [place] [address] 60323- 7053 Jun, Depressive disorder, not elsewhere classified F32.9 and Psychosis, unspecified psychosis type F29 [place] [id number] [place] [address] 21577- 7553 Jun, Lumbar radiculopathy, acute M54.16 [place] [address] 22572- 5061 Jun, Lumbar radiculopathy, acute M54.16 ; Strain of abdominal wall, initial encounter S39.011A and BMI 40.0-44.9, adult Z68.41 [place] [id number] [place] [address] 79006- 4030 Jun, [place] [id number] [place] [address] 33636- 9177 May, [place] [address] 57670- 3282 May, Methamphetamine use disorder, severe, 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 ; Psychosis, unspecified psychosis type F29 ; Personality disorder F60.9 ; Opioid use disorder, moderate, dependence F11.20 and Xanax use disorder, moderate F13.20 [address] [address] 79608- 2369 May, [place] [address] 68605- 7111 May, [place] [address] 45036- 2398 May, Lumbago with sciatica, left side M54.42 ; Lumbago with sciatica, right side M54.41 ; Other chronic pain G89.29 ; Weight gain R63.5 ; Acquired hypothyroidism E03.9 and BMI 40.0-44.9, adult Z68.41 [place] [id number] [place] [address] 32502- 2793 Apr, Cigarette nicotine dependence without complication F17.210 [place] [id number] [place] [address] 49284- 1132 Apr, Acute bilateral low back pain without sciatica M54.5 [place] [id number] [place] [address] 64134- 8517 Apr, Methamphetamine use disorder, severe, 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 ; Psychosis, unspecified psychosis type F29 ; Personality disorder F60.9 ; Opioid use disorder, moderate, dependence F11.20 and Xanax use disorder, moderate F13.20 [facility] [id number] [place] [address] 09258 -9738 12 Ye, 2018 Wheezing R06.2 and Bronchitis J40 [place] [id number] [place] [address] 02276- 8278 Apr, Bronchitis J40 ; Cigarette nicotine dependence without complication F17.210 and Bipolar disease, chronic F31.9 [place] [id number] [place] [address] 53638- 8498 Mar, Acquired hypothyroidism E03.9 [place] [address] 71089- 6980 Mar, Acquired hypothyroidism E03.9 [place] [address] 44821- 3103 Mar, Orthostatic hypotension I95.1 and Non-intractable vomiting with nausea, unspecified vomiting type R11.2 [place] [address] 93912- 3514 14 Mar, 2017 Strain of lumbar region, initial encounter S39.012A [place] [address] 69600- 9911 11 Mar, 2017 [facility] [address] [place] [address] 94264 -2689 07 Mar, 2017 Bronchitis J40 [place] [id number] [place] [address] 34480- 9654 05 Mar, 2017 Degenerative joint disease M19.90 ; Elevated LFTs R79.89 ; Adenopathy R59.1 ; Drug use F19.90 ; Pre-diabetes R73.03 and COPD (chronic obstructive pulmonary disease) J44.9 [facility] [id number] [place] [address] 63428 -9755 30 Feb, 2017 Left hand pain M79.642 and Contusion of left hand, initial encounter S60.222A [place] [address] 56462- 6937 07 Feb, 2017 Body aches R52 and Flu-like symptoms R68.89 [place] [address] 65080- 7715 Jan, [place] [address] 85886- 3863 Jan, Bipolar disease, chronic F31.9 ; Acquired hypothyroidism E03.9 and Encounter for immunization Z23 [facility] [address] 02610 -7474 05 Dec, 2016 Crushing injury of left wrist and hand, initial encounter S67.42XA [address] 57875- 9177 Sep, [address] 61888- 4283 Sep, Bipolar disease, chronic F31.9 ; Panic disorder with agoraphobia F40.01 and Proteinuria, unspecified type R80.[address] 82520- 6765 August, [address] 16048- 3030 August, Degenerative joint disease M19.90 ; Left-sided chest wall pain R07.89 ; Bipolar disease, chronic F31.9 ; Type 2 diabetes mellitus without complication, without long-term current use of insulin E11.9 ; Acquired hypothyroidism E03.9 and Acute cystitis without hematuria N30.[id number] [place] [address] 11229- 8369 Mar, [place] [address] 33891- 2038 Feb, [facility] [address] 34836 -2900 Feb, Right hand pain M79.641 [facility] [address] 40283 -2256 11 Feb, 2016 Bronchitis J40 ; Acute non-recurrent pansinusitis J01.40 and Seasonal allergic rhinitis due to other allergic trigger J30.89 [facility] [id number] [address]- 0181 29 Dec, 2015 [facility] [address] [address] -2236 Mar, Left-sided chest wall pain R07.89 and Chronic pain G89.29 [facility] [address] [address]- 9554 Jul, [facility] [address] [facility] [id number] [address]- 6243 Jul, [facility] [id number] [place] [address] 52607- 2662 May, [facility] [id number] [place] [address] 07621- 6328 May, [facility] [id number] [place] [address] 50333- 2891 Apr, [facility] [address] [address]- 2203 Apr, [facility] [address] [address]- 0747 Mar, [facility] [address] [address]- 2596 Mar, [facility] [address] [address]- 3583 Feb, [facility] [address] [address]- 3484 Feb, [facility] [address] 5379 Jan, [facility] [address] [place] [address]- 9210 Jan, [facility] [id number] [place] [address] 04558- 6790 28 Jan, 2014 [facility] [place] [facility] [address] [id number] [place] [address]- 3158 28 Jan, 2014 [facility] [place] [facility] [address] [id number] [place] [address]- 3423 15 Jan, 2014 [facility] [place] [facility] [address] [id number] [place] [address]- 9715 15 Jan, 2014 [facility] [place] [facility] [address] [id number] [place] [address]- 5497 19 Dec, 2013 [facility] [place] [facility] [address] [id number] [place] [address]- 8016 19 Dec, 2013 [facility] [place] [facility] [address] [id number] [place] [address]- 2854 19 Dec, 2013 [facility] [place] [facility] [address] [id number] [place] [address]- 4391 19 Dec, 2013 [facility] [place] [facility] [address] [id number] [place] [address]- 7144 18 Dec, 2013 [facility] [place] [facility] [address] [id number] [place] [address]- 4006 18 Dec, 2013 [facility] [place] [facility] [address] [id number] [place] [address]- 5479 16 Dec, 2013 [facility] [place] [facility] [address] [id number][place] [address]- 8726 16 Dec, 2013 [facility] [place] [facility] [address] [id number], [place] [address]- 7514 17 Sep, 2013 [facility] [place] [facility] [address] [id number] [place] [address]- 8770 17 Sep, 2013 [facility] [place] [facility] [address] [id number], [place] [address]- 0855 15 Jul, 2013 [facility] [place] [facility] [address] [id number], [place] [address]- 4939 15 Jul, 2013 [facility] [place] [facility] [address] [id number] [place] [address]- 8618 Jul, [facility] [place] [facility] [address] [id number] [place] [address]- 3826 Jul, [facility] [place] [facility] [address] [id number] [place] [address]- 4494 Jul, [facility] [place] [facility] [address] [id number] [place] [address]- 9115 Jul, [facility] [place] [facility] [address] [id number] [place] [address]- 9576 Jul, [facility] [place] [facility] [address] [id number] [place] [address]- 3136 Jul, [facility] [place] [facility] [address] [id number] [place] [address]- 1306 Jun, [facility] [place] [facility] [address] [id number] [place] [address]- 8728 Jun, [facility] [place] [facility] [address] [id number] [place] [address]- 5506 May, [facility] [place] [facility] [address] [id number] [place] [address]- 6030 May, [facility] [place] [facility] [address] [id number] [place] [address]- 0679 May, [facility] [place] [facility] [address] [id number] [place] [address]- 5338 May, [facility] [place] [facility] [address] [id number] [place] [address]- 7528 Apr, [facility] [place] [facility] [address] [id number] [place] [address]- 9123 Apr, [facility] [place] [facility] [address] [id number] [place] [address]- 5447 Mar, [facility] [place] [facility] [address] [id number] [place] [address]- 9106 Mar, [facility] [place] [facility] [address] [id number] [place] [address]- 8983 Feb, [facility] [place] [facility] [address] [id number] [place] [address]- 0903 Feb, [facility] [place] [facility] [address] [id number] [place] [address]- 7113 Feb, [facility] [place] [facility] [address] [id number] [place] [address]- 6934 Feb, [facility] [place] [facility] [address] [id number] [place] [address]- 2529 Jan, [facility] [place] [facility] [address] [id number] [place] [address]- 2662 Jan, [facility] [place] [facility] [address] [id number] [place] [address]- 1120 Jan, [facility] [place] [facility] [address] [id number], [place] [address]- 1051 Jan, [facility] [place] [facility] [address] [id number] [place] [address]- 7666 Jan, [facility] [place] [facility] [address] [id number], [place] [address]- 3282 Dec, [facility] [place] [facility] [address] [id number], [place] [address]- 9796 Dec, [facility] [place] [facility] [address] [id number], [place] [address]- 1313 Nov, [facility] [place] [facility] [address] [id number], [place] [address]- 2268 Sep, [facility] [place] [facility] [address] [id number], [place] [address]- 5666 August, [facility] [place] [facility] [address] [id number], [place] [address]- 4786 August, [facility] [place] [facility] [address] [id number], [place] [address]- 5336 30 Jul, 2012 [facility] [address] [id number] [place] [address]- 5035 Jul, [facility] [address] [id number] [place] [address]- 8486 Jul, [facility] [address] [facility] [id number] [place] [address]- 3448 Jul, [facility] [address] [id number] [place] [address]- 8144 Jul, [facility] [address] [id number] [place] [address]- 1750 Jul, [facility] [address] [id number] [place] [address]- 2711 Jul, [facility] [address] [id number] [place] [address]- 4743 Jun, [facility] [address] [id number] [place] [address]- 3395 Jun, [facility] [address] [id number] [place] [address]- 6055 May, [facility] [address] [facility] [id number] [place] [address]- 6146 Apr, [facility] [address] [id number] [place] [address]- 7594 Apr, [facility] [address] [id number] [place] [address]- 2028 Mar, [facility] [address] [id number] [place] [address]- 6873 Mar, [facility] [address] [facility] [id number] [place] [address]- 8710 Mar, [facility] [address] [id number] [place] [address]- 4725 Feb, [facility] [place] [facility] [address] [id number] [place] [address]- 7836 24 Feb, 2012 [facility] [place] [facility] [address] [id number] [place] [address]- 3886 24 Feb, 2012 [facility] [place] [facility] [address] [id number] [place] [address]- 0845 24 Feb, 2012 [facility] [place] [facility] [address] [id number] [place] [address]- 4936 Feb, [facility] [place] [facility] [address] [id number] [place] [address] 2544 Feb, [facility] [place] [facility] [address] [id number] [place] [address]- 4385 16 Feb, 2012 [facility] [place] [facility] [address] [id number] [place] [address]- 3135 16 Feb, 2012 [facility] [place] [facility] [address] [id number] [place] [address]- 9729 14 Feb, 2012 [facility] [place] [facility] [address] [id number] [place] [address]- 7966 Feb, [facility] [place] [facility] [address] [id number] [place] [address]- 7857 Feb, [facility] [place] [facility] [address] [id number] [place] [address]- 2386 27 Dec, 2011 [facility] [place] [facility] [address] [id number] [place] [address]- 3456 07 Dec, 2011 [facility] [place] [facility] [address] [id number] [place] [address]- 0449 30 Nov, 2011 [facility] [place] [facility] [address] [id number] [place] [address]- 0896 Nov, [facility] [place] [facility] [address] [id number] [place] [address]- 6581 Oct, [facility] [place] [facility] [address] [id number] [place] [address]- 0199 Oct, [facility] [place] [facility] [address] [id number] [place] [address]- 6511 Sep, [facility] [place] [facility] [address] [id number] [place] [address]- 2647 May, [facility] [place] [facility] [address] [id number] [place] [address]- 3491 May, [facility] [place] [facility] [address] [id number] [place] [address]- 2903 May, [facility] [place] [facility] [address] [id number] [place] 7733 Apr, [facility] [place] [facility] [address] [id number] [place] [address]- 4463 Mar, [facility] [place] [facility] [address] [id number] [place] [address]- 0102 Mar, [facility] [place] [facility] [address] [id number], [place] [address]- 6339 Feb, [facility] [place] [facility] [address] [id number] [place] [address]- 7621 Feb, [facility] [place] [facility] [address] [id number] [place] [address]- 2782 Feb, [facility] [place] [facility] [address] [id number], [place] [address]- 4135 Jan, [facility] [place] [facility] [address] [id number], [place] [address]- 2018 Jan, [facility] [place] [facility] [address] [id number], [place] [address]- 5276 Dec, [facility] [place] [facility] [address] [id number], [place] [address]- 9713 Mar, [facility] [place] [facility] [address] [id number] [place] [address]- 6246 Feb, [facility] [place] [facility] [address], [place] [address]- 2546 10 Feb, 2009 [facility] [address], [place] [address]- 6136 Feb, [facility] [address], [place] [address]- 2936 Jan, [facility] [id number] [address]- 1936 Dec, [facility] [id number] [place] [address] 37629- 8749 Nov, [facility] [id number] [place] [address] 46154- 3236 Sep, [facility] [id number] [place] [address] 75523- 8816 August, [facility] [id number] [place] [address] 04563- 2876 May, [facility] [address], [place] [address]- 3606 Mar, IMMUNIZATIONS Vaccine Route Administration Date Status TORADOL (IM) 60 MG/2ML (UP TO 15 MG) IM Intramuscular Apr 27, 2017 Administered SOCIAL HISTORY Never Assessed REASON FOR VISIT back pain, PT fell on the [facility] PLAN OF CARE VITAL SIGNS Height 63 in 2017-04-27 Weight 214.6 lbs 2017-04-27 Temperature 97.8 degrees Fahrenheit 2017-04-27 Heart Rate 76 bpm 2017-04-27 Respiratory Rate 20 2017-04-27 BMI 38.01 kg/m2 2017-04-27 Blood pressure systolic 122 mmHg 2017-04-27 Blood pressure diastolic 72 mmHg 2017-04-27 MEDICATIONS Medication Instructions Dosage Frequency Start Date End Date Duration Status PredniSONE 20 mg Orally Once a day 2 tablets 24h Apr, Apr, 05 days Active ProAir HFA 108 (90 Base) MCG/ACT Inhalation every 6 hrs 2 puffs as needed 6h Mar, Active Womens One Daily - Active Seroquel 50 MG Orally Three times a day as needed for mood,anxiety 0.5-1 tablet Apr, 30 day(s) Active Mobic 15 MG Orally Once a day 1 tablet 24h August, Sep, 30 day(s) Not-Taking Naproxen 500 mg Orally every 12 hrs 1 tablet with food or milk as needed 12h Apr, Active Synthroid 50 mcg Orally Once a day 1 tablet on an empty stomach in the morning 24h August, 90 days Active Nicoderm CQ 21 MG/24HR Transdermal Once a day 1 patch to skin 24h Apr, May, 30 day(s) Active Cyclobenzaprine HCl 10 mg Orally 2 times a day 1 tablet as needed 12h Apr, Active Doxycycline Hyclate 100 mg Orally every 12 hrs 1 capsule 12h Apr, Apr, 10 days Active Seroquel 200 MG Orally daily 0.5 tablet every night for 3 nights then take one tablet eveyr night 24h Apr, 30 day(s) Active RESULTS Name Result Date Reference Range Xray : Spine, Lumbar 2-3 views (IN HOUSE) 2017-04-27 PROCEDURES Procedure Date Ordered Result Body Site X-RAY EXAM OF LOWER SPINE Apr 27, 2017 THER/PROPH/DIAG INJ, SC/IM Apr 27, 2017 TORADOL (IM) 60 MG/2ML (UP TO 15 MG) Apr 27, 2017 INSTRUCTIONS MEDICATIONS ADMINISTERED No Known Medications [...] suicide ideat and attempts. [facility] [place], [place] last around 2006 Hospitalization History left foot swollen, stepped in [facility] 05/02/17
--- OUTSIDE RECORDS SUMMARY | 2017-12-24 02:59 | XMS REPORT ---
Author Author KYLE HENDRIX Organization [facility] Address [address] [place] [address] Care Team Providers Care Coil Winder Strap Name Role Phone KYLE HENDRIX Unavailable PROBLEMS Type Condition ICD9-CM Code VQH45-AM Code Onset Dates Condition Status SNOMED Code Problem Psychosis F29 Active 34910884 Problem Bipolar disease, chronic F31.9 Active 11264064 Problem Acquired hypothyroidism E03.9 Active 787526436 Problem Type 2 diabetes mellitus without complication, without long-term current use of insulin E11.9 Active 333904369 Problem Degenerative joint disease M19.90 Active 062196495 Problem Panic disorder with agoraphobia F40.01 Active 96015061 Problem Chronic pain G89.29 Active 97410930 Problem COPD (chronic obstructive pulmonary disease) J44.9 Active 12815515 ALLERGIES No Information SOCIAL HISTORY Never Assessed PLAN OF CARE VITAL SIGNS MEDICATIONS Unknown Medications RESULTS No Results PROCEDURES No Known procedures IMMUNIZATIONS No Known Immunizations MEDICAL (GENERAL) HISTORY [...]
--- OUTSIDE RECORDS SUMMARY | 2017-12-24 02:59 | XMS REPORT ---
Author CYDNEY Bolanos [facility] e[employer] Address Unknown Phone Unavailable Care Team Providers Care Lightning Protection Installer Name Role Phone CYDNEY HINES CP Unavailable Allergies, Adverse Reactions, Alerts Substance Reaction Event Type Tramadol HCl nausea and vomiting Drug Allergy Penicillin V Potassium anaphylaxis Drug Allergy Keflex anaphylaxis Drug Allergy Ibuprofen Info Not Available Drug Allergy Aspirin hives Drug Allergy Problems Problem Type Condition Code Onset Dates Condition Status Problem Encounter for chronic pain management G89.29 Active Problem COPD (chronic obstructive pulmonary disease) J44.9 Active Problem History of amphetamine dependence/abuse F15.21 Active Assessment Right hand pain M79.641 Active Problem Nondependent amphetamine or related acting sympathomimetic abuse, unspecified 305.70 Active Problem Left-sided chest wall pain R07.89 Active Problem Chronic pain G89.29 Active Problem Seasonal allergic rhinitis due to other allergic trigger J30.89 Active Problem Panic disorder with agoraphobia F40.01 Active Problem Degenerative joint disease M19.90 Active Problem Psychosis F29 Active Problem Bipolar disease, chronic F31.9 Active Medications Medication Code System Code Instructions Start Date End Date Status Dosage Splint Wrist Brace/Left-Right [facility] [id number] - Mar 01, 2016 as directed Ventolin HFA [facility] [address]-41 90 mcg/actuation Apr 08, 2013 inhale 2 puff by Inhalation route as needed every 4 hours for breathing Tramadol HCl [facility] [address]-61 50 mg Orally every 6 hrs prn hand pain Feb 29, 2016 1 tablet as needed Procedures Procedure Coding System Code Date Office Visit, Est Pt., Level 3 CPT-4 71363 Feb 29, 2016 X-RAY EXAM OF HAND CPT-4 23673 Feb 29, 2016 Vital Signs Date/Time: Feb 29, 2016 Cardiac Monitoring Heart Rate 86 bpm Weight 209.6 lbs Height 63 in BMI 37.12 Index Blood Pressure Diastolic 66 mmHg Blood Pressure Systolic 90 mmHg Results Name Result Date Reference Range Unit Abnormality Flag Xray : Hand, Right 3 views (IN HOUSE) Summary Purpose eClinicalWorks Submission
[2017-12-24] MEDS ORDERED: KETOROLAC 30 MG/ML VIAL IM ONE (03:00)
--- OUTSIDE RECORDS SUMMARY | 2017-12-24 03:00 | XMS REPORT ---
Author Author KYLE HENDRIX [facility] Address [address] [place] [address] Care Team Providers Care Manager Transplant Name Role Phone KYLE HENDRIX Unavailable PROBLEMS Type Condition ICD9-CM Code ZZA65-ZA Code Onset Dates Condition Status SNOMED Code Problem Opioid use disorder, moderate, dependence F11.20 Active 24354563 Problem Personality disorder F60.9 Active 45679908 Problem Psychosis, unspecified psychosis type F29 Active 79910692 Problem Depressive disorder, not elsewhere classified F32.9 Active 60319956 Problem Morbid (severe) obesity due to excess calories E66.01 Active 86176775615078 Problem Lumbago with sciatica, right side M54.41 Active 355391968010566 Problem Lumbago with sciatica, left side M54.42 Active 766791248 Problem Body mass index (BMI) of 40.0-44.9 in adult Z68.41 Active 475250097 Problem Other chronic pain G89.29 Active 45611009 Problem Panic disorder with agoraphobia F40.01 Active 84129543 Problem Degenerative joint disease M19.90 Active 711197948 Problem Bipolar disease, chronic F31.9 Active 98656077 Problem COPD (chronic obstructive pulmonary disease) J44.9 Active 57288737 Problem Pre-diabetes R73.03 Active 815511673 Problem Cigarette nicotine dependence without complication F17.210 Active 23366291 Problem Chronic pain G89.29 Active 15091732 Problem Xanax use disorder, moderate F13.20 Active 811066263 Problem Acquired hypothyroidism E03.9 Active 695525521 Problem Methamphetamine use disorder, severe, 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 Active 20776357 ALLERGIES No Information ENCOUNTERS Encounter Location Date Diagnosis [facility] [address] [facility] [id number] [address] Jul, [facility] [address] [place] [id number] [place] [address] 56692- 9899 Jul, [place] [address] [place] [id number] [place] [address] 58261- 1914 Jul, [place] [address] [place] [id number] [place] [address] 81963- 1887 Jun, Methamphetamine use disorder, severe, 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 ; Psychosis, unspecified psychosis type F29 ; Personality disorder F60.9 ; Opioid use disorder, moderate, dependence F11.20 and Xanax use disorder, moderate F13.20 [place] [address] [place] [address] [id number] [place] [address] 93584- 4031 Jun, Depressive disorder, not elsewhere classified F32.9 and Psychosis, unspecified psychosis type F29 [place] [address] [place] [id number] [place] [address] 20579- 9875 Jun, Lumbar radiculopathy, acute M54.16 [place] [address] [place] [address] [id number] [place] [address] 91753- 3874 Jun, Lumbar radiculopathy, acute M54.16 ; Strain of abdominal wall, initial encounter S39.011A and BMI 40.0-44.9, adult Z68.41 [place] [address] [place] [id number] [place] [address] 46573- 1578 Jun, [place] [address] [place] [address] [id number] [place] [address]24- 3561 May, [place] [address] [place] [address] [id number] [place] [address] 07925- 0834 May, Methamphetamine use disorder, severe, 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 ; Psychosis, unspecified psychosis type F29 ; Personality disorder F60.9 ; Opioid use disorder, moderate, dependence F11.20 and Xanax use disorder, moderate F13.20 [place] [address] [place] [address] [id number] [place] [address] 73003- 4404 May, [place] [address] [place] [id number] [place] [address] 59360- 8758 May, [facility] [address] [place] [address] [id number] [place] [address] 13296- 3117 May, Lumbago with sciatica, left side M54.42 ; Lumbago with sciatica, right side M54.41 ; Other chronic pain G89.29 ; Weight gain R63.5 ; Acquired hypothyroidism E03.9 and BMI 40.0-44.9, adult Z68.41 [place] [address] 123605- 3753 Apr, Cigarette nicotine dependence without complication F17.[address] 462792- 4668 Apr, Acute bilateral low back pain without sciatica M54.5 [place] [address] 79856- 9775 Apr, Methamphetamine use disorder, severe, 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 ; Psychosis, unspecified psychosis type F29 ; Personality disorder F60.9 ; Opioid use disorder, moderate, dependence F11.20 and Xanax use disorder, moderate F13.20 [facility] [address] [address]7328 Apr, Wheezing R06.2 and Bronchitis J40 [address] 72296- 2312 Apr, Bronchitis J40 ; Cigarette nicotine dependence without complication F17.210 and Bipolar disease, chronic F31.9 [facility] [address] [place] [address] [id number] [place] [address] 28554- 7303 Mar, Acquired hypothyroidism E03.9 [place] [address] 54216- 3333 Mar, Acquired hypothyroidism E03.9 [facility] [address] 08827- 2745 Mar, Orthostatic hypotension I95.1 and Non-intractable vomiting with nausea, unspecified vomiting type R11.2 [place] [address] [place] [address] [id number] [place] [address] 75784- 9965 14 Mar, 2017 Strain of lumbar region, initial encounter S39.012A [place] [address] [place] [address] [id number] [place] [address] 20441- 8994 Mar, [facility] [address] [address]0177 Mar, Bronchitis J40 [place] [address] 28716- 8945 05 Mar, 2017 Degenerative joint disease M19.90 ; Elevated LFTs R79.89 ; Adenopathy R59.1 ; Drug use F19.90 ; Pre-diabetes R73.03 and COPD (chronic obstructive pulmonary disease) J44.9 [facility] [place] [id number] [place] [address] 07875 -3786 30 Feb, 2017 Left hand pain M79.642 and Contusion of left hand, initial encounter S60.222A [place] [address] 76331- 0550 Feb, Body aches R52 and Flu-like symptoms R68.89 [place] [address] [place] [id number] [place] [address] 32451- 3187 Jan, [place] [id number] [place] [address] 89507- 1162 Jan, Bipolar disease, chronic F31.9 ; Acquired hypothyroidism E03.9 and Encounter for immunization Z23 [facility] [place] [id number] [place] [address] 99348 -9595 05 Dec, 2016 Crushing injury of left wrist and hand, initial encounter S67.42XA [place] [address] [place] [address] [id number] [place] [address] 42647- 0513 Sep, [address] 39[address]- 5790 Sep, Bipolar disease, chronic F31.9 ; Panic disorder with agoraphobia F40.01 and Proteinuria, unspecified type R80.9 [place] [address] 01150- 0023 August, [place] [address] 56369- 9204 August, Degenerative joint disease M19.90 ; Left-sided chest wall pain R07.89 ; Bipolar disease, chronic F31.9 ; Type 2 diabetes mellitus without complication, without long-term current use of insulin E11.9 ; Acquired hypothyroidism E03.9 and Acute cystitis without hematuria N30.00 [place] [address] 18432- 2437 Mar, [place] [address] 47855- 9593 Feb, [facility] [address] [address]9360 Feb, Right hand pain M79.641 [facility] [address] [address]2 Feb, Bronchitis J40 ; Acute non-recurrent pansinusitis J01.40 and Seasonal allergic rhinitis due to other allergic trigger J30.[address] 95038- 6609 Dec, [facility] [place] [address] 40855 -9463 Mar, Left-sided chest wall pain R07.89 and Chronic pain G89.29 [place] [address] 46526- 9643 Jul, [place] [address] 06458- 4732 Jul, [place] [address] 34192- 4767 May, [facility] [place] [facility] [address] [id number] [place] [address]- 4674 May, [facility] [place] [facility] [address] [id number] [place] [address]- 9875 Apr, [facility] [place] [facility] [address] [id number] [place] [address]- 0024 Apr, [facility] [place] [facility] [address] [id number] [place] [address]- 0611 Mar, [facility] [place] [facility] [address] [id number] [place] [address]- 6572 Mar, [facility] [place] [facility] [address] [id number] [place] [address]- 1437 Feb, [facility] [place] [facility] [address] [id number] [place] [address]- 4446 Feb, [facility] [place] [facility] [address] [id number] [place] [address]- 0293 Jan, [facility] [place] [facility] [address] [id number] [place] [address]- 0790 Jan, [facility] [place] [facility] [address] [id number], [place] [address]- 8349 Jan, [facility] [place] [facility] [address] [id number], [place] [address]- 5678 Jan, [facility] [place] [facility] [address] [id number], [place] [address]- 6675 15 Jan, 2014 [facility] [place] [facility] [address] [id number] [place] [address]- 6285 15 Jan, 2014 [facility] [place] [facility] [address] [id number], [place] [address]- 8188 Dec, [facility] [place] [facility] [address] [id number], [place] [address]- 4118 19 Dec, 2013 [facility] [place] [facility] [address] [id number], [place] [address]- 8248 19 Dec, 2013 [facility] [place] [facility] [address] [id number] [place] [address]- 5163 19 Dec, 2013 [facility] [place] [facility] [address] [id number] [place] [address]- 3470 18 Dec, 2013 [facility] [place] [facility] [address] [id number] [place] [address]- 4565 18 Dec, 2013 [facility] [place] [facility] [address] [id number] [place] [address]- 5172 16 Dec, 2013 [facility] [place] [facility] [address] [id number] [place] [address]- 8171 16 Dec, 2013 [facility] [place] [facility] [address] [id number] [place] [address]- 8691 17 Sep, 2013 [facility] [place] [facility] [address] [id number] [place] [address]- 6213 17 Sep, 2013 [facility] [place] [facility] [address] [id number] [place] [address]- 5147 15 Jul, 2013 [facility] [place] [facility] [address] [id number] [place] [address]- 5341 15 Jul, 2013 [facility] [place] [facility] [address] [facility] [id number] [place] [address]- 5655 10 Jul, 2013 [facility] [place] [facility] [address] [id number] [place] [address]- 1542 10 Jul, 2013 [facility] [place] [facility] [address] [id number], [place] [address]- 3081 03 Jul, 2013 [facility] [place] [facility] [address] [id number] [place] [address]- 5436 Jul, [facility] [place] [facility] [address] [id number] [place] [address]- 6916 03 Jul, 2013 [facility] [place] [facility] [address] [id number] [place] [address]- 7494 Jul, [facility] [place] [facility] [address] [id number] [place] [address]- 6223 Jun, [facility] [place] [facility] [address] [id number] [place] [address]- 3715 Jun, [facility] [place] [facility] [address] [id number] [place] [address]- 5179 May, [facility] [place] [facility] [address] [id number] [place] [address]- 7070 May, [facility] [place] [facility] [address] [id number] [place] [address]- 1210 May, [facility] [place] [facility] [address] [id number] [place] [address]- 0030 May, [facility] [place] [facility] [address] [facility] [id number] [place] [address]- 5052 Apr, [facility] [place] [facility] [address] [id number] [place] [address]- 8520 Apr, [facility] [place] [facility] [address] [id number] [place] [address]- 6086 Mar, [facility] [place] [facility] [address] [id number] [place] [address]- 6262 Mar, [facility] [place] [facility] [address] [id number] [place] [address]- 8228 Feb, [facility] [place] [facility] [address] [id number] [place] [address]- 3606 Feb, [facility] [place] [facility] [address] [id number] [place] [address]- 5715 Feb, [facility] [place] [facility] [address] [id number] [place] [address]- 3799 Feb, [facility] [place] [facility] [address] [id number] [place] [address]- 6210 Jan, [facility] [place] [facility] [address] [id number] [place] [address]- 2546 Jan, [facility] [place] [facility] [address] [id number] [place] Jan, [facility] [place] [facility] [address] [id number] [place] [address]- 1208 Jan, [facility] [place] [facility] [address] [id number] [place] [address]- 9001 Jan, [facility] [place] [facility] [address] [id number] [place] [address]- 6148 Dec, [facility] [place] [facility] [address] [id number] [place] 0925 Dec, [facility] [place] [facility] [address] [id number] [place] [address]- 2382 Nov, [facility] [place] [facility] [address] [id number] [place] [address]- 4371 Sep, [facility] [place] [facility] [address] [id number] [place] [address]- 0963 August, [facility] [place] [facility] [address] [id number] [place] [address]- 3512 August, [facility] [place] [facility] [address] [id number] [place] [address]- 7230 Jul, [facility] [place] [facility] [address] [id number] [place] [address]- 6968 Jul, [facility] [place] [facility] [address] [id number] [place] [address]- 9705 Jul, [facility] [place] [facility] [address] [id number] [place] [address]- 6705 Jul, [facility] [place] [facility] [address] [id number] [place] [address]- 1421 Jul, [facility] [place] [facility] [address] [id number] [place] 3075 Jul, [facility] [place] [facility] [address] [id number] [place] [address] 2546 Jul, [facility] [address] [id number] [place] [address]- 5685 Jun, [facility] [place] [facility] [address] [id number] [place] [address]- 1356 Jun, [facility] [address] [id number] [place] [address]- 2180 May, [facility] [address] [id number] [place] [address]- 0378 Apr, [facility] [address] [id number] [place] [address]- 4151 Apr, [facility] [address] [id number] [place] [address]- 9382 Mar, [facility] [address] [id number] [place] [address]- 3907 Mar, [facility] [address] [id number] [place] [address]- 4351 Mar, [facility] [address] [id number] [place] [address]- 3668 Feb, [facility] [address] [id number] [place] [address]- 4061 Feb, [facility] [address] [id number] [place] [address]- 1061 Feb, [facility] [address] [id number] [place] [address]- 2545 Feb, [facility] [place] [facility] [address] [id number] [place] [address]- 9272 Feb, [facility] [place] [facility] [address] [id number] [place] [address]- 2676 Feb, [facility] [place] [facility] [address] [id number] [place] [address]- 8385 Feb, [facility] [place] [facility] [address] [id number] [place] [address]- 0203 16 Feb, 2012 [facility] [place] [facility] [address] [id number] [place] [address]- 0547 14 Feb, 2012 [facility] [place] [facility] [address] [id number] [place] [address]- 5294 08 Feb, 2012 [facility] [place] [facility] [address] [id number] [place] [address]- 1262 08 Feb, 2012 [facility] [place] [facility] [address] [id number] [place] [address]- 1737 27 Dec, 2011 [facility] [place] [facility] [address] [id number] [place] [address]- 2166 Dec, [facility] [place] [facility] [address] [id number] [place] [address]- 3911 30 Nov, 2011 [facility] [place] [facility] [address] [id number] [place] [address]- 4294 Nov, [facility] [place] [facility] [address] [id number] [place] [address]- 1184 Oct, [facility] [place] [facility] [address] [id number] [place] [address]- 1917 Oct, [facility] [place] [facility] [address] [id number] [place] [address]- 5072 Sep, [facility] [place] [facility] [address] [id number] [place] [address]- 1015 May, [facility] [place] [facility] [address] [id number] [place] [address]- 9804 15 May, 2011 [facility] [place] [facility] [address] [id number] [place] [address]- 0436 May, [facility] [place] [facility] [address] [id number] [place] [address]- 8796 Apr, [facility] [place] [facility] [address] [id number] [place] [address]- 6776 06 Mar, 2011 [facility] [place] [facility] [address] [id number] [place] [address]- 8316 Mar, [facility] [place] [facility] [address] [id number] [place] [address]- 8420 Feb, [facility] [place] [facility] [address] [facility] [id number] [place] [address]- 5260 Feb, [facility] [place] [facility] [address] [id number] [place] [address]- 3296 Feb, [facility] [place] [facility] [address] [id number] [place] [address]- 8510 Jan, [facility] [place] [facility] [address] [id number] [place] [address]- 3053 Jan, [facility] [place] [facility] [address] [facility] [id number] [place] [address]- 0111 Dec, [facility] [place] [facility] [address] [id number] [place] [address]- 1622 Mar, [facility] [place] [facility] [address] [facility] [id number] [place] [address]- 2362 Feb, [facility] [place] [facility] [address] [facility] [id number], [place] [address]- 3632 Feb, [facility] [place] [facility] [address] [facility] [id number] [place] [address]- 2624 Feb, [facility] [place] [facility] [address] [facility] [id number], [place] [address]- 1307 20 Jan, 2009 [facility] [place] [facility] [address] [id number] [place] [address]- 4005 16 Dec, 2008 [facility] [place] [facility] [address] [facility] [id number], [place] [address]- 1533 Nov, [facility] [place] [facility] [address] [facility] [id number], [place] [address]- [address] Sep, [facility] [address] [facility] [id number] [place] [address]- 0724 August, [facility] [address] [facility] [id number], [place] [address]- 0736 May, [facility] [address] [facility] [id number] [place] [address]- 3846 Mar, IMMUNIZATIONS No Known Immunizations SOCIAL HISTORY [...] Hospitalization History left foot swollen, stepped in [facility] ER 05/02/17
--- NOTE | 2017-12-24 03:01 | ED Integumentary General ---
General Stated Complaint: NOSE SWELLING/PAIN Source: patient Exam Limitations: no limitations History of Present Illness Date Seen by Provider: Dec 24, 2017 Time Seen by Provider: 02:49 Initial Comments Patient presents to ER by private conveyance from [place] with chief complaint that she for the past to 3 days has had progressively worsening red welt and pain on her nose. She feels like a zit on the inside of her nose but she's not been on a pop it. She called her clinic's nurse and they told her to put a hot compress on it and she tried that but it didn't help. She had some Tylenol for it yesterday and that didn't help. She does not have immunocompromise. No fevers chills nausea vomiting or difficulty breathing. Allergies and Home Medications Allergies Coded Allergies: Penicillins (Unverified Allergy, Mild, 08/28/08) Aspirin (Verified Allergy, Unknown, 11/30/05) Cephalexin (Verified Allergy, Unknown, 11/30/05) Folic Acid (Verified Allergy, Unknown, 01/08/07) Iron (Verified Allergy, Unknown, 01/08/07) Penicillin G (Verified Allergy, Unknown, 11/30/05) Home Medications Ibuprofen 800 Mg Tablet, 1 TAB PO QID PRN FOR PAIN Prescribed by: CIELO MCINTOSH on 11/18/089 Methylprednisolone 4 Mg/Dose-Pack Tab.ds.pk, 0 PO UD FOR BREATHING Prescribed by: CIELO MCINTOSH on 01/28/092137 Metoclopramide Hcl 10 Mg Tablet, 1 EACH PO QID PRN FOR NAUSEA AND STOMACH DISCOMFORT Prescribed by: CIELO MCINTOSH on 01/20/09 2100 Naproxen 500 Mg Tablet, 1 EACH PO BID Prescribed by: JAZ QUIROZ on 02/11/09 1737 Promethazine Hcl 25 Mg Tablet, 1 TAB PO QID Prescribed by: THOMAS ALLEN on 12/25/08 1809 Patient Home Medication List Home Medication List Reviewed: Yes Review of Systems Review of Systems Constitutional: No chills, No diaphoresis EENTM: No ear pain, No eye pain Respiratory: No cough, No phlegm Cardiovascular: No edema Gastrointestinal: No abdominal pain Past Rtdzdko-Zheteg-Ilaplv Hx Patient Social History Alcohol Use: Denies Use Recreational Drug Use: No Recent Foreign Travel: No Contact w/Someone Who Travel: No Past Medical History Reproductive Disorders: Yes (12 MISCARRIAGES) Physical Exam Vital Signs Capillary Refill : General Appearance: WD/WN, no apparent distress HEENT: pharynx normal, other (left naris has a erythematous, swollen appearance without any central pore or area of fluctuance.) Neck: non-tender, normal inspection Cardiovascular: normal peripheral pulses, regular rate, rhythm Respiratory: no respiratory distress, no accessory muscle use Progress/Results/Core Measures Results/Orders My Orders Orders - CRYSTAL BOBBY Ketorolac Injection (Toradol Injection) (12/24/17 03:00) Departure Impression Primary Impression: Infection of nose Disposition: HOME, SELF-CARE Condition: Stable Departure-Patient Inst. Decision time for Depature: 03:01 Referrals: HUSSAIN MAE MD (PCP/Family) Primary Care Physician Patient Instructions: NO INSTRUCTIONS GIVEN Add. Discharge Instructions: Warm compresses multiple times a day as needed. Tylenol and Naprosyn for pain. 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 Take the Bactrim one tablet twice a day for the next 7 days. Scripts Sulfamethoxazole/Trimethoprim (Bactrim Ds Tablet) 1 Each Tablet 1 EACH PO BID for 7 Days, #14 TAB 0 Refills Prov: CRYSTAL BOBBY 12/24/17 Bacitracin (Bacitracin) 3.5 Gm Oint...g. 0.1 GM OP BID for 7 Days, #1 TUBE 0 Refills Prov: CRYSTAL BOBBY 12/24/17 CRYSTAL BOBBY Dec 24, 2017 03:01
--- OUTSIDE RECORDS SUMMARY | 2017-12-24 03:01 | XMS REPORT ---
Author Author YOGESH DALTON [facility] Address [address] [place] [address] Care Team Providers Care Radiology Equipment Servicer Name Role Phone YOGESH DALTON Unavailable PROBLEMS Type Condition ICD9-CM Code [id number] Code Onset Dates Condition Status SNOMED Code Problem Psychosis, unspecified psychosis type F29 Active 64562866 Problem Lumbago with sciatica, left side M54.42 Active 284017885 Problem Personality disorder F60.9 Active 89275925 Problem Right sciatic nerve pain M54.31 Active 17364587 Problem Bipolar disease, chronic F31.9 Active 82645466 Problem Depressive disorder, not elsewhere classified F32.9 Active 44883253 Problem Other chronic pain G89.29 Active 46454625 Problem Lumbago with sciatica, right side M54.41 Active [id number] Problem Morbid (severe) obesity due to excess calories E66.01 Active 85088948956814 Problem Body mass index (BMI) of 40.0-44.9 in adult Z68.41 Active 840301018 Problem Degenerative joint disease M19.90 Active 221537904 Problem Chronic pain G89.29 Active 72532335 Problem COPD (chronic obstructive pulmonary disease) J44.9 Active 74871565 Problem Panic disorder with agoraphobia F40.01 Active 24278535 Problem Cigarette nicotine dependence without complication F17.210 Active 32436424 Problem Xanax use disorder, moderate F13.20 Active 208589787 Problem Acquired hypothyroidism E03.9 Active 947173936 Problem Methamphetamine use disorder, severe, 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 Active 34069872 Problem Pre-diabetes R73.03 Active 069592067 Problem Opioid use disorder, moderate, dependence F11.20 Active 39208247 ALLERGIES No Information ENCOUNTERS Encounter Location Date Diagnosis [facility] [address] [id number], [place] [address] Dec, [facility] [id number] [place] [address] 17196- 8369 Oct, [facility] [id number] [place] [address] 17158- 4540 Sep, [place] [id number] [place] [address] 50521- 3112 Sep, Methamphetamine use disorder, severe, 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 ; Psychosis, unspecified psychosis type F29 ; Personality disorder F60.9 ; Opioid use disorder, moderate, dependence F11.20 ; Xanax use disorder, moderate F13.20 and BMI 40.0-44.9, adult Z68.41 [place] [id number] [place] [address] 76310- 4102 Sep, Depressive disorder, not elsewhere classified F32.9 and Psychosis, unspecified psychosis type F29 [place] [id number] [place] [address] 84718- 5261 August, [place] [id number] [place] [address] 69912- 4614 August, Depressive disorder, not elsewhere classified F32.9 and Psychosis, unspecified psychosis type F29 [place] [id number] [place] [address] 64334- 6846 August, [place] [id number] [place] [address] 06130- 0857 August, Lumbago with sciatica, right side M54.41 and Other chronic pain G89.29 [facility] [id number] [place] [address] 81696 -2936 Jul, Right sciatic nerve pain M54.31 [facility] [id number] [place] [address] 19163- 7109 Jul, Acquired hypothyroidism E03.9 [facility] [id number] [place] [address] 01270- 8346 Jul, Depressive disorder, not elsewhere classified F32.9 and Psychosis, unspecified psychosis type F29 [place] [id number] [place] [address] 11113- 7980 Jul, Acquired hypothyroidism E03.9 ; Lumbago with sciatica, right side M54.41 and Lumbar radiculopathy, acute M54.16 [place] [id number] [place] [address] 32724- 5730 Jul, Methamphetamine use disorder, severe, 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 ; Psychosis, unspecified psychosis type F29 ; Personality disorder F60.9 ; Opioid use disorder, moderate, dependence F11.20 ; Xanax use disorder, moderate F13.20 and BMI 40.0-44.9, adult Z68.41 [place] [id number] [place] [address] 60321- 8643 Jun, Methamphetamine use disorder, severe, 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 ; Psychosis, unspecified psychosis type F29 ; Personality disorder F60.9 ; Opioid use disorder, moderate, dependence F11.20 and Xanax use disorder, moderate F13.20 [place] [id number] [place] [address] 55030- 5847 Jun, Depressive disorder, not elsewhere classified F32.9 and Psychosis, unspecified psychosis type F29 [place] [id number] [place] [address] 46918- 5638 Jun, Lumbar radiculopathy, acute M54.16 [place] [id number] [place] [address] 66527- 0635 Jun, Lumbar radiculopathy, acute M54.16 ; Strain of abdominal wall, initial encounter S39.011A and BMI 40.0-44.9, adult Z68.41 [place] [id number] [place] [address] 45146- 9906 Jun, [place] [id number] [place] [address] 34416- 9858 May, [place] [address] [address] [address]- 8951 May, Methamphetamine use disorder, severe, 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 ; Psychosis, unspecified psychosis type F29 ; Personality disorder F60.9 ; Opioid use disorder, moderate, dependence F11.20 and Xanax use disorder, moderate F13.20 [place] [address] 03824- 8557 May, [place] [address] 99215- 0260 May, [address] 01278- 6258 May, Lumbago with sciatica, left side M54.42 ; Lumbago with sciatica, right side M54.41 ; Other chronic pain G89.29 ; Weight gain R63.5 ; Acquired hypothyroidism E03.9 and BMI 40.0-44.9, adult Z68.[address] 15141- 7805 Apr, Cigarette nicotine dependence without complication F17.[address] 39284- 8496 Apr, Acute bilateral low back pain without sciatica M54.[address] 39404- 2816 Apr, Methamphetamine use disorder, severe, 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9 [place] [id number] [place] [address] 41907- 4280 Mar, Acquired hypothyroidism E03.9 [place] [id number] [place] [address] 42833- 0917 Mar, Orthostatic hypotension I95.1 and Non-intractable vomiting with nausea, unspecified vomiting type R11.2 [place] [id number] [place] [address] 50168- 0067 Mar, Strain of lumbar region, initial encounter S39.012A [place] [id number] [place] [address] 32629- 8927 Mar, [facility] [id number] [place] [address] 08630 -8898 Mar, Bronchitis J40 [place] [id number] [place] [address] 27286- 6548 Mar, Degenerative joint disease M19.90 ; Elevated LFTs R79.89 ; Adenopathy R59.1 ; Drug use F19.90 ; Pre-diabetes R73.03 and COPD (chronic obstructive pulmonary disease) J44.9 [facility] [place] [id number] [place] [address] 01000 -7079 Feb, Left hand pain M79.642 and Contusion of left hand, initial encounter S60.222A [place] [id number] [place] [address] 40478- 7559 Feb, Body aches R52 and Flu-like symptoms R68.89 [place] [id number] [place] [address] 60598- 5500 Jan, [place] [id number] [place] [address] 49269- 1101 Jan, Bipolar disease, chronic F31.9 ; Acquired hypothyroidism E03.9 and Encounter for immunization Z23 [facility] [address] [address] 05 Dec, 2016 Crushing injury of left wrist and hand, initial encounter S67.42XA [place] [address] 47797- 5311 Sep, [address] 47681- 8694 Sep, Bipolar disease, chronic F31.9 ; Panic disorder with agoraphobia F40.01 and Proteinuria, unspecified type R80.[address] 48673- 9332 August, [place] [address] 49940- 9010 August, Degenerative joint disease M19.90 ; Left-sided chest wall pain R07.89 ; Bipolar disease, chronic F31.9 ; Type 2 diabetes mellitus without complication, without long-term current use of insulin E11.9 ; Acquired hypothyroidism E03.9 and Acute cystitis without hematuria N30.[address] 36293- 8093 Mar, [place] [address] 79518- 1608 Feb, [facility] [address] 11508 -3206 Feb, Right hand pain M79.641 [facility] [address] 01785 -5587 Feb, Bronchitis J40 ; Acute non-recurrent pansinusitis J01.40 and Seasonal allergic rhinitis due to other allergic trigger J30.89 [place] [address] 68737- 2525 Dec, [facility] [address] [place] [address] -1781 Mar, Left-sided chest wall pain R07.89 and Chronic pain G89.29 [facility] [address] [facility] [id number], [place] [address]- 3398 Jul, [facility] [address] [id number] 6107 Jul, [facility] [address] [id number], [place] [address]- 3870 May, [facility] [address] [id number] 8942 May, [facility] [address] [id number], [place] [address]- 6520 Apr, [facility] [address] [id number], [place] [address]- 0071 Apr, [facility] [address] [id number], [place] [address]- 1116 Mar, [facility] [address] [id number], [place] [address]- 7845 Mar, [facility] [address] [id number], [place] [address]- 6462 Feb, [facility] [address] [id number], [place] [address]- 7336 Feb, [facility] [address] [facility] [id number], [place] [address]- 5925 Jan, [facility] [address] [facility] [id number], [place] [address]- 1241 Jan, [facility] [address] [facility] [id number], [place] [address]- 4231 Jan, [facility] [address] [facility] [id number], [place] [address]- 9718 Jan, [facility] [address] [facility] [id number], [place] [address]- 4376 15 Jan, 2014 [facility] [place] [facility] [address] [id number] [place] [address]- 2943 15 Jan, 2014 [facility] [place] [facility] [address] [id number], [place] [address]- 2529 19 Dec, 2013 [facility] [place] [facility] [address] [id number] [place] [address]- 6816 19 Dec, 2013 [facility] [place] [facility] [address] [id number] [place] [address]- 5861 19 Dec, 2013 [facility] [place] [facility] [address] [id number] [place] [address]- 2382 19 Dec, 2013 [facility] [place] [facility] [address] [id number] [place] [address]- 3338 18 Dec, 2013 [facility] [place] [facility] [address] [id number], [place] [address]- 1017 18 Dec, 2013 [facility] [place] [facility] [address] [id number] [place] [address]- 3865 16 Dec, 2013 [facility] [place] [facility] [address] [id number] [place] [address]- 9013 16 Dec, 2013 [facility] [place] [facility] [address] [facility] [id number], [place] [address]- 6848 17 Sep, 2013 [facility] [place] [facility] [address] [id number], [place] [address]- 3080 17 Sep, 2013 [facility] [place] [facility] [address] [id number], [place] [address]- 8841 15 Jul, 2013 [facility] [place] [facility] [address] [id number], [place] [address]- 8868 15 Jul, 2013 [facility] [place] [facility] [address] [facility] [id number], [place] [address]- 9286 10 Jul, 2013 [facility] [place] [facility] [address] [facility] [id number], [place] [address]- 8654 10 Jul, 2013 [facility] [place] [facility] [address] [id number] [place] [address]- 8857 Jul, [facility] [place] [facility] [address] [id number] [place] [address]- 2424 Jul, [facility] [place] [facility] [address] [id number] [place] [address]- 8109 Jul, [facility] [place] [facility] [address] [id number] [place] [address]- 8617 Jul, [facility] [place] [facility] [address] [id number] [place] [address]- 3685 Jun, [facility] [place] [facility] [address] [id number] [place] [address]- 3153 Jun, [facility] [place] [facility] [address] [id number] [place] [address]- 8201 May, [facility] [place] [facility] [address] [id number] [place] [address]- 5327 May, [facility] [place] [facility] [address] [id number] [place] [address]- 2370 May, [facility] [place] [facility] [address] [id number] [place] [address]- 1567 May, [facility] [place] [facility] [address] [id number] [place] [address]- 9715 Apr, [facility] [place] [facility] [address] [id number] [place] [address]- 4959 Apr, [facility] [place] [facility] [address] [id number] [place] [address]- 2801 Mar, [facility] [place] [facility] [address] [id number] [place] [address]- 3657 Mar, [facility] [place] [facility] [address] [id number] [place] [address]- 8182 Feb, [facility] [place] [facility] [address] [id number] [place] [address]- 2546 Feb, [facility] [place] [facility] [address] [id number] [place] [address]- 0878 Feb, [facility] [place] [facility] [address] [id number] [place] [address]- 1809 Feb, [facility] [place] [facility] [address] [id number] [place] [address]- 6066 Jan, [facility] [place] [facility] [address] [id number] [place] [address]- 7119 Jan, [facility] [place] [facility] [address] [id number] [place] [address]- 6930 Jan, [facility] [place] [facility] [address] [id number] [place] [address]- 1466 Jan, [facility] [place] [facility] [address] [id number] [place] [address]- 6394 Jan, [facility] [place] [facility] [address] [id number] [place] [address]- 8417 Dec, [facility] [place] [facility] [address] [id number] [place] [address]- 6694 Dec, [facility] [place] [facility] [address] [id number] [place] [address]- 3874 Nov, [facility] [place] [facility] [address] [id number], [place] [address]- 0391 Sep, [facility] [place] [facility] [address] [id number], [place] [address]- 1593 August, [facility] [place] [facility] [address] [id number] [place] [address]- 4481 August, [facility] [place] [facility] [address] [id number] [place] [address]- 0924 Jul, [facility] [place] [facility] [address] [id number] [place] [address]- 0810 Jul, [facility] [place] [facility] [address] [id number] [place] [address]- 4826 Jul, [facility] [address] [id number] [place] [address]- 7434 Jul, [facility] [address] [id number] [place] [address]- 3116 Jul, [facility] [address] [id number] [place] [address]- 9066 Jul, [facility] [address] [id number] [place] [address]- 3986 Jul, [facility] [address] [id number] [place] [address]- 9031 Jun, [facility] [address] [id number] [place] [address]- 5806 Jun, [facility] [address] [id number] [place] [address]- 6034 May, [facility] [address] [id number] [place] [address]- 3384 Apr, [facility] [address] [id number] [place] [address]- 2758 Apr, [facility] [address] [id number] [place] [address]- 5466 Mar, [facility] [address] [id number] [place] [address]- 5769 Mar, [facility] [address] [id number] [place] [address]- 6476 Mar, [facility] [place] [facility] [address] [id number] [place] [address]- 6019 Feb, [facility] [address] [id number] [place] [address]- 6229 Feb, [facility] [address] [id number] [place] [address]- 6198 Feb, [facility] [place] [facility] [address] [id number] [place] [address]- 6224 Feb, [facility] [place] [facility] [address] [id number] [place] [address]- 4796 Feb, [facility] [place] [facility] [address] [id number] [place] [address]- 8790 Feb, [facility] [place] [facility] [address] [id number] [place] [address]- 6787 Feb, [facility] [place] [facility] [address] [id number] [place] [address]- 4102 Feb, [facility] [place] [facility] [address] [id number] [place] [address]- 6622 Feb, [facility] [place] [facility] [address] [id number] [place] [address]- 4433 Feb, [facility] [place] [facility] [address] [id number] [place] [address]- 2218 Feb, [facility] [place] [facility] [address] [id number] [place] [address]- 7704 Dec, [facility] [place] [facility] [address] [id number] [place] [address]- 3779 Dec, [facility] [place] [facility] [address] [id number] [place] [address]- 3000 Nov, [facility] [place] [facility] [address] [id number] [place] [address]- 8213 Nov, [facility] [place] [facility] [address] [id number] [place] [address]- 9157 Oct, [facility] [place] [facility] [address] [id number] [place] [address]- 6377 Oct, [facility] [place] [facility] [address] [id number] [place] [address]- 3461 Sep, [facility] [place] [facility] [address] [id number] [place] [address]- 6971 28 May, 2011 [facility] [place] [facility] [address] [id number] [place] [address]- 5638 15 May, 2011 [facility] [place] [facility] [address] [id number] [place] [address]- 4489 May, [facility] [place] [facility] [address] [id number] [place] [address]- 9705 Apr, [facility] [place] [facility] [address] [id number] [place] [address]- 3113 Mar, [facility] [place] [facility] [address] [id number] [place] [address]- 6108 Mar, [facility] [place] [facility] [address] [id number] [place] [address]- 3854 Feb, [facility] [place] [facility] [address] [facility] [id number] [place] [address]- 8997 Feb, [facility] [place] [facility] [address] [id number] [place] [address]- 3605 Feb, [facility] [place] [facility] [address] [facility] [id number] [place] [address]- 3047 Jan, [facility] [place] [facility] [address] [facility] [id number] [place] [address]- 2824 Jan, [facility] [place] [facility] [address] [id number] [place] [address]- 8842 Dec, [facility] [place] [facility] [address] [id number], [place] [address]- 5454 Mar, [facility] [place] [facility] [address] [id number] [place] [address]- 7880 Feb, [facility] [place] [facility] [address] [facility] [id number] [place] [address]- 5186 Feb, [facility] [place] [facility] [address] [id number], [place] [address]- 9972 Feb, [facility] [address] [id number], [place] [address]- 2546 Jan, [facility] [address] [id number], [place] [address]- 2546 Dec, [facility] [address], [place] [address]- 2546 Nov, [facility] [address], [place] [address]- 2546 Sep, [facility] [address], [place] [address]- 2546 August, [facility] [address], [place] [address]- 2546 May, [facility] [address], [place] [address]- 2546 Mar, IMMUNIZATIONS No Known Immunizations SOCIAL HISTORY Never Assessed REASON FOR VISIT Refill request PLAN OF CARE VITAL SIGNS MEDICATIONS Medication Instructions Dosage Frequency Start Date End Date Duration Status Synthroid 50 mcg Orally Once a day 1 tablet on an empty stomach in the morning 24h August, 90 days Active RESULTS No Results PROCEDURES No [...] harming, suicide ideat and attempts. [facility] Hospitalization History left foot swollen, stepped in [facility] 05/02/17
--- OUTSIDE RECORDS SUMMARY | 2017-12-24 03:02 | XMS REPORT ---
Author Author JOSEFINA TORRES Organization [facility] Address [address] [place] [address] Care Team Providers Care Mixer Operator Tablets Name Role Phone TORRES JOSEFINA Unavailable PROBLEMS Type Condition ICD9-CM Code RMI04-LW Code Onset Dates Condition Status SNOMED Code Problem History of amphetamine dependence/abuse F15.21 Active 378340216 Problem Degenerative joint disease M19.90 Active 381063817 Problem COPD (chronic obstructive pulmonary disease) J44.9 Active 62897735 Problem Nondependent amphetamine or related acting sympathomimetic abuse, unspecified 305.70 Active Problem Encounter for chronic pain management G89.29 Active 578254986 Problem Seasonal allergic rhinitis due to other allergic trigger J30.89 Active 277119907 Problem Left-sided chest wall pain R07.89 Active 911635910 Problem Bipolar disease, chronic F31.9 Active 29056319 Problem Panic disorder with agoraphobia F40.01 Active 86782540 Problem Chronic pain G89.29 Active 66934571 Problem Psychosis F29 Active 17913754 ALLERGIES Substance Reaction Event Type Date Status Tramadol HCl nausea and vomiting Drug Allergy Feb, Active Penicillin V Potassium anaphylaxis Drug Allergy Feb, Active Keflex anaphylaxis Drug Allergy Feb, Active Ibuprofen Unknown Drug Allergy Feb, Active Aspirin hives Drug Allergy Feb, Active SOCIAL HISTORY No smoking Hx information available PLAN OF CARE VITAL SIGNS MEDICATIONS Unknown Medications RESULTS No Results PROCEDURES No Known procedures IMMUNIZATIONS No Known Immunizations
--- OUTSIDE RECORDS SUMMARY | 2017-12-24 03:04 | XMS REPORT | Continuity of Care Document ---
Author Author [facility] Address Unknown Phone Unavailable Allergies Active Description Code Type Severity Reaction Onset Reported/Identified Relationship to Patient Clinical Status Yes aspirin Drug Allergy N/A N/A 05/28/2008 Yes Keflex Drug Allergy N/A N/A 05/28/2008 Yes Penicillins Drug Allergy N/A N/A 05/28/2008 Yes aspirin Drug Allergy 05/28/2008 Yes Keflex Drug Allergy 05/28/2008 Yes Penicillins Drug Allergy 05/28/2008 Medications There is no data. Problems Date Dx Coded Attending Type Code Diagnosis Diagnosed By 10/15/2007 HENRY MCINTOSH APRN S 599.0 Urinary Tract Infection 10/15/2007 599.0 Urinary Tract Infection 10/15/2007 JUSTIN ALSTON DO 599.0 Urinary Tract Infection 10/15/2007 599.0 Urinary Tract Infection 10/15/2007 HENRY MCINTOSH APRN S 599.0 Urinary Tract Infection 10/15/2007 599.0 Urinary Tract Infection 10/15/2007 HENRY MCINTOSH APRN S 599.0 Urinary Tract Infection 10/15/2007 HENRY MCINTOSH APRN S 599.0 Urinary Tract Infection 10/15/2007 HENRY MCINTOSH APRN S 599.0 Urinary Tract Infection 10/15/2007 JUSTIN ALSTON DO 599.0 Urinary Tract Infection 10/15/2007 EVANGELINA SEN APRN 599.0 Urinary Tract Infection 10/15/2007 KIMI HILARIO APRN 599.0 Urinary Tract Infection 10/15/2007 JUSTIN ALSTON DO 599.0 Urinary Tract Infection 10/15/2007 LACIE PARHAM RN 599.0 Urinary Tract Infection 10/15/2007 LACIE PARHAM RN 599.0 Urinary Tract Infection 10/15/2007 LACIE PARHAM RN 599.0 Urinary Tract Infection 10/15/2007 PRASAD PAVON LACIE E 599.0 Urinary Tract Infection 10/23/2007 HENRY MCINTOSH APRN 296.30 MAJOR DEPRESSIVE AFFECTIVE DISORDER RECURRENT EPISODE UNSPECIFIED DEGREE 10/23/2007 296.30 MAJOR DEPRESSIVE AFFECTIVE DISORDER RECURRENT EPISODE UNSPECIFIED DEGREE 10/23/2007 JUSTIN ALSTON DO 296.30 MAJOR DEPRESSIVE AFFECTIVE DISORDER RECURRENT EPISODE UNSPECIFIED DEGREE 10/23/2007 296.30 MAJOR DEPRESSIVE AFFECTIVE DISORDER RECURRENT EPISODE UNSPECIFIED DEGREE 10/23/2007 HENRY MCINTOSH APRN S 296.30 MAJOR DEPRESSIVE AFFECTIVE DISORDER RECURRENT EPISODE UNSPECIFIED DEGREE 10/23/2007 296.30 MAJOR DEPRESSIVE AFFECTIVE DISORDER RECURRENT EPISODE UNSPECIFIED DEGREE 10/23/2007 HENRY MCINTOSH APRN S 296.30 MAJOR DEPRESSIVE AFFECTIVE DISORDER RECURRENT EPISODE UNSPECIFIED DEGREE 10/23/2007 HENRY MCINTOSH APRN S 296.30 MAJOR DEPRESSIVE AFFECTIVE DISORDER RECURRENT EPISODE UNSPECIFIED DEGREE 10/23/2007 HENRY MCINTOSH APRN S 296.30 MAJOR DEPRESSIVE AFFECTIVE DISORDER RECURRENT EPISODE UNSPECIFIED DEGREE 10/23/2007 JUSTIN ALSTON DO 296.30 MAJOR DEPRESSIVE AFFECTIVE DISORDER RECURRENT EPISODE UNSPECIFIED DEGREE 10/23/2007 EVANGELINA SEN APRN 296.30 MAJOR DEPRESSIVE AFFECTIVE DISORDER RECURRENT EPISODE UNSPECIFIED DEGREE 10/23/2007 KIMI HILARIO APRN 296.30 MAJOR DEPRESSIVE AFFECTIVE DISORDER RECURRENT EPISODE UNSPECIFIED DEGREE 10/23/2007 JUSTIN ALSTON DO 296.30 MAJOR DEPRESSIVE AFFECTIVE DISORDER RECURRENT EPISODE UNSPECIFIED DEGREE 10/23/2007 PRASAD PAVON, LACIE E 296.30 MAJOR DEPRESSIVE AFFECTIVE DISORDER RECURRENT EPISODE UNSPECIFIED DEGREE 10/23/2007 PRASAD PAVON, LACIE E 296.30 MAJOR DEPRESSIVE AFFECTIVE DISORDER RECURRENT EPISODE UNSPECIFIED DEGREE 10/23/2007 PRASAD PAVON, LACIE E 296.30 MAJOR DEPRESSIVE AFFECTIVE DISORDER RECURRENT EPISODE UNSPECIFIED DEGREE 10/23/2007 PRASAD PAVON, LACIE E 296.30 MAJOR DEPRESSIVE AFFECTIVE DISORDER RECURRENT EPISODE UNSPECIFIED DEGREE 10/26/2007 HENRY MCINTOSH APRN 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 10/26/2007 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 10/26/2007 JUSTIN ALSTON DO 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 10/26/2007 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 10/26/2007 ARNALDO CORE INSPECTOR, HENRY S 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 10/26/2007 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 10/26/2007 ANITA MCINTOSH APRNNDA S 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 10/26/2007 ANITA MCINTOSH APRNNDA S 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 10/26/2007 ANITA MCINTOSH APRNNDA S 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 10/26/2007 JUSTIN ALSTON DO K 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 10/26/2007 EVANGELINA SEN APRN 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 10/26/2007 KIMI HILARIO APRN 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 10/26/2007 JUSTIN ALSTON DO K 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 10/26/2007 PRASAD PAVON, LACIE E 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 10/26/2007 PRASAD PAVON, LACIE E 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 10/26/2007 PRASAD PAVON, LACIE E 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 10/26/2007 PRASAD PAVON, LACIE E 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 11/27/2007 ABRAHAN MCINTOSH APRNA S 682.9 Cellulitis And Abscess Of Unspecified Sites 11/27/2007 ABRAHAN MCINTOSH APRNA S 724.5 Backache Unspecified 11/27/2007 ABRAHAN MCINTOSH APRNA S 786.2 Cough 11/27/2007 682.9 Cellulitis And Abscess Of Unspecified Sites 11/27/2007 724.5 Backache Unspecified 11/27/2007 786.2 Cough 11/27/2007 PRASHANTH ALSTON DOA K 682.9 Cellulitis And Abscess Of Unspecified Sites 11/27/2007 PRASHANTH ALSTON DOA K 724.5 Backache Unspecified 11/27/2007 PRASHANTH ALSTON DOA K 786.2 Cough 11/27/2007 682.9 Cellulitis And Abscess Of Unspecified Sites 11/27/2007 724.5 Backache Unspecified 11/27/2007 786.2 Cough 11/27/2007 ABRAHAN MCINTOSH APRNA S 682.9 Cellulitis And Abscess Of Unspecified Sites 11/27/2007 ARNALDO CORE INSPECTOR, HENRY S 724.5 Backache Unspecified 11/27/2007 ARNALDO CORE INSPECTOR, HENRY S 786.2 Cough 11/27/2007 682.9 Cellulitis And Abscess Of Unspecified Sites 11/27/2007 724.5 Backache Unspecified 11/27/2007 786.2 Cough 11/27/2007 ARNALDO CORE INSPECTOR, HENRY S 682.9 Cellulitis And Abscess Of Unspecified Sites 11/27/2007 ARNALDO CORE INSPECTOR, HENRY S 724.5 Backache Unspecified 11/27/2007 ARNALDO CORE INSPECTOR, HENRY S 786.2 Cough 11/27/2007 ARNALDO CORE INSPECTOR, HENRY S 682.9 Cellulitis And Abscess Of Unspecified Sites 11/27/2007 ARNALDO CORE INSPECTOR, HENRY S 724.5 Backache Unspecified 11/27/2007 ARNALDO CORE INSPECTOR, HENRY S 786.2 Cough 11/27/2007 ARNALDO CORE INSPECTOR, HENRY S 682.9 Cellulitis And Abscess Of Unspecified Sites 11/27/2007 ARNALDO CORE INSPECTOR, HENRY S 724.5 Backache Unspecified 11/27/2007 ARNALDO CORE INSPECTOR, HENRY S 786.2 Cough 11/27/2007 ALSTON DO JUSTIN K 682.9 Cellulitis And Abscess Of Unspecified Sites 11/27/2007 ALSTON DO JUSTIN K 724.5 Backache Unspecified 11/27/2007 ALSTON DO JUSTIN K 786.2 Cough 11/27/2007 MCKINLEY BARRAZA, EVANGELINA A 682.9 Cellulitis And Abscess Of Unspecified Sites 11/27/2007 MCKINLEY BARRAZA EVANGELINA A 724.5 Backache Unspecified 11/27/2007 MCKINLEY CORE INSPECTOR, EVANGELINA A 786.2 Cough 11/27/2007 KIMI HILARIO APRN 682.9 Cellulitis And Abscess Of Unspecified Sites 11/27/2007 KIMI HILARIO APRN 724.5 Backache Unspecified 11/27/2007 KIMI HILARIO APRN 786.2 Cough 11/27/2007 ALSTON PRASHANTH MURGUAIA K 682.9 Cellulitis And Abscess Of Unspecified Sites 11/27/2007 ALSTON DO, JUSTIN K 724.5 Backache Unspecified 11/27/2007 ALSTON DO, JUSTIN K 786.2 Cough 11/27/2007 PRSAAD RN, LACIE E 682.9 Cellulitis And Abscess Of Unspecified Sites 11/27/2007 PRASAD RN, LACIE E 724.5 Backache Unspecified 11/27/2007 PRASAD RN, LACIE E 786.2 Cough 11/27/2007 PRASAD RN, LACIE E 682.9 Cellulitis And Abscess Of Unspecified Sites 11/27/2007 PRASAD RN, LACIE E 724.5 Backache Unspecified 11/27/2007 PRASAD RN, LACIE E 786.2 Cough 11/27/2007 PRASAD RN, LACIE E 682.9 Cellulitis And Abscess Of Unspecified Sites 11/27/2007 PRASAD RN, LACIE E 724.5 Backache Unspecified 11/27/2007 PRASAD RN, LACIE E 786.2 Cough 11/27/2007 PRASAD PAVON, LACIE E 682.9 Cellulitis And Abscess Of Unspecified Sites 11/27/2007 PRASAD RN, LACIE E 724.5 Backache Unspecified 11/27/2007 PRASAD RN, LACIE E 786.2 Cough 03/11/2008 ANITA MCINTOSH APRNNDA S 354.0 Carpal Tunnel Syndrome 03/11/2008 ANITA MCINTOSH APRNNDA S 465.9 Upper Respiratory Infection 03/11/2008 ANITA MCINTOSH APRNNDA S 493.90 Asthma Unspecified 03/11/2008 354.0 Carpal Tunnel Syndrome 03/11/2008 465.9 Upper Respiratory Infection 03/11/2008 493.90 Asthma Unspecified 03/11/2008 PRASHANTH ALSTON DOA K 354.0 Carpal Tunnel Syndrome 03/11/2008 PRASHANTH ALSTON DOA K 465.9 Upper Respiratory Infection 03/11/2008 ALSTON DOPRASHANTHA K 493.90 Asthma Unspecified 03/11/2008 354.0 Carpal Tunnel Syndrome 03/11/2008 465.9 Upper Respiratory Infection 03/11/2008 493.90 Asthma Unspecified 03/11/2008 ARNALDO BARRAZA HENRY S 354.0 Carpal Tunnel Syndrome 03/11/2008 ARNALDO BARRAZA HENRY S 465.9 Upper Respiratory Infection 03/11/2008 ARNALDO CORE INSPECTOR, HENRY S 493.90 Asthma Unspecified 03/11/2008 354.0 Carpal Tunnel Syndrome 03/11/2008 465.9 Upper Respiratory Infection 03/11/2008 493.90 Asthma Unspecified 03/11/2008 ARNALDO CORE INSPECTOR, HENRY S 354.0 Carpal Tunnel Syndrome 03/11/2008 ARNALDO CORE INSPECTOR, HENRY S 465.9 Upper Respiratory Infection 03/11/2008 ARNALDO CORE INSPECTOR, HENRY S 493.90 Asthma Unspecified 03/11/2008 ARNALDO CORE INSPECTOR, HENRY S 354.0 Carpal Tunnel Syndrome 03/11/2008 ARNALDO CORE INSPECTOR, HENRY S 465.9 Upper Respiratory Infection 03/11/2008 ARNALDO CORE INSPECTOR, HENRY S 493.90 Asthma Unspecified 03/11/2008 ARNALDO CORE INSPECTOR, HENRY S 354.0 Carpal Tunnel Syndrome 03/11/2008 ARNALDO CORE INSPECTOR, HENRY S 465.9 Upper Respiratory Infection 03/11/2008 ARNALDO CORE INSPECTOR, HENRY S 493.90 Asthma Unspecified 03/11/2008 ALSTON DO JUSTIN K 354.0 Carpal Tunnel Syndrome 03/11/2008 ALSTON DO, JUSTIN K 465.9 Upper Respiratory Infection 03/11/2008 ALSTON DO, JUSTIN K 493.90 Asthma Unspecified 03/11/2008 MCKINLEY CORE INSPECTOR, EVANGELINA A 354.0 Carpal Tunnel Syndrome 03/11/2008 MCKINLEY GOINSN, EVANGELINA A 465.9 Upper Respiratory Infection 03/11/2008 MCKINLEY BARRAZA, EVANGELINA A 493.90 Asthma Unspecified 03/11/2008 KIMI HIALRIO APRN 354.0 Carpal Tunnel Syndrome 03/11/2008 KIMI HILARIO APRN 465.9 Upper Respiratory Infection 03/11/2008 KIMI HILARIO APRN D 493.90 Asthma Unspecified 03/11/2008 ALSTON DO JUSTIN K 354.0 Carpal Tunnel Syndrome 03/11/2008 ALSTON DO, JUSTIN K 465.9 Upper Respiratory Infection 03/11/2008 ALSTON DO JUSTIN K 493.90 Asthma Unspecified 03/11/2008 PRASAD PAVON, LACIE E 354.0 Carpal Tunnel Syndrome 03/11/2008 LACIE PARHAM RN E 465.9 Upper Respiratory Infection 03/11/2008 PARHAM RN, LACIE E 493.90 Asthma Unspecified 03/11/2008 PRASAD RN, LACIE E 354.0 Carpal Tunnel Syndrome 03/11/2008 PRASAD RN, LACIE E 465.9 Upper Respiratory Infection 03/11/2008 PRASAD RN, LACIE E 493.90 Asthma Unspecified 03/11/2008 PRASAD RN, LACIE E 354.0 Carpal Tunnel Syndrome 03/11/2008 PRASAD PAVON, LACIE E 465.9 Upper Respiratory Infection 03/11/2008 PRASAD RN, LACIE E 493.90 Asthma Unspecified 03/11/2008 PRASAD RN, LACIE E 354.0 Carpal Tunnel Syndrome 03/11/2008 PRASAD RN, LACIE E 465.9 Upper Respiratory Infection 03/11/2008 PRASAD PAVON, LACIE E 493.90 Asthma Unspecified 03/14/2008 ANITA MCINTOSH APRNNDA S 784.0 Headache 03/14/2008 784.0 Headache 03/14/2008 PRASHANTH ALSTON DOA K 784.0 Headache 03/14/2008 784.0 Headache 03/14/2008 ARNALDO BARRAZA HENRY S 784.0 Headache 03/14/2008 784.0 Headache 03/14/2008 ARNALDODARLENE BARRAZA, HENRY S 784.0 Headache 03/14/2008 ARNALDO BARRAZA HENRY S 784.0 Headache 03/14/2008 ARNALDODARLENE BARRAZA, HENRY S 784.0 Headache 03/14/2008 GAMALIEL MURGUIA JUSTIN K 784.0 Headache 03/14/2008 EVANGELINA SEN APRN A 784.0 Headache 03/14/2008 KIMI HILARIO APRN 784.0 Headache 03/14/2008 GAMALIEL MURGUIA JUSTIN K 784.0 Headache 03/14/2008 PRASAD PAVON, LACIE E 784.0 Headache 03/14/2008 PRASAD PAVON, LACIE E 784.0 Headache 03/14/2008 PRASAD PAVON, LACIE E 784.0 Headache 03/14/2008 PRASAD PAVON, LACIE E 784.0 Headache 03/17/2008 ANITA MCINTOSH APRNNDA S 079.99 Viral Syndrome 03/17/2008 079.99 Viral Syndrome 03/17/2008 GAMALIEL MURGUIA JUSTIN K 079.99 Viral Syndrome 03/17/2008 079.99 Viral Syndrome 03/17/2008 ANITA MCINTOSH APRNNDA S 079.99 Viral Syndrome 03/17/2008 079.99 Viral Syndrome 03/17/2008 ANITA MCINTOSH APRNNDA S 079.99 Viral Syndrome 03/17/2008 ANITA MCINTOSH APRNNDA S 079.99 Viral Syndrome 03/17/2008 ANITA MCINTOSH APRNNDA S 079.99 Viral Syndrome 03/17/2008 JUSTIN ALSTON DO 079.99 Viral Syndrome 03/17/2008 EVANGELINA SEN APRN A 079.99 Viral Syndrome 03/17/2008 KIMI HILARIO APRN 079.99 Viral Syndrome 03/17/2008 JUSTIN ALSTON DO 079.99 Viral Syndrome 03/17/2008 PRASAD PAVON, LACIE E 079.99 Viral Syndrome 03/17/2008 PRASAD PAVON, LACIE De Souza 079.99 Viral Syndrome 03/17/2008 PRASAD PAVON, LACIE De Souza 079.99 Viral Syndrome 03/17/2008 PRASAD PAVON, LACIE E 079.99 Viral Syndrome 03/21/2008 ANITA MCINTOSH APRNNDA S 786.07 Wheezing 03/21/2008 786.07 Wheezing 03/21/2008 JUSTIN ALSTON DO 786.07 Wheezing 03/21/2008 786.07 Wheezing 03/21/2008 ANITA MCINTOSH APRNNDA S 786.07 Wheezing 03/21/2008 786.07 Wheezing 03/21/2008 ANITA MCINTOSH APRNNDA S 786.07 Wheezing 03/21/2008 ANITA MCINTOSH APRNNDA S 786.07 Wheezing 03/21/2008 ANITA MCINTOSH APRNNDA S 786.07 Wheezing 03/21/2008 JUSTIN ALSTON DO 786.07 Wheezing 03/21/2008 EVANGELINA SEN APRN A 786.07 Wheezing 03/21/2008 KIMI HILARIO APRN 786.07 Wheezing 03/21/2008 JUSTIN ALSTON DO 786.07 Wheezing 03/21/2008 PRASAD PAVON, LACIE E 786.07 Wheezing 03/21/2008 LACIE PARHAM RN 786.07 Wheezing 03/21/2008 PRASAD PAVON, LACIE E 786.07 Wheezing 03/21/2008 PRASAD PAVON, LACIE E 786.07 Wheezing 03/27/2008 ARNALDO BARRAZA, HENRY S 461.9 Sinusitis Acute 03/27/2008 461.9 Sinusitis Acute 03/27/2008 JUSTIN ALSTON DO K 461.9 Sinusitis Acute 03/27/2008 461.9 Sinusitis Acute 03/27/2008 ARNALDO CORE INSPECTOR, HENRY S 461.9 Sinusitis Acute 03/27/2008 461.9 Sinusitis Acute 03/27/2008 ARNALDO CORE INSPECTOR, HENRY S 461.9 Sinusitis Acute 03/27/2008 ARNALDO GOINSN, HENRY S 461.9 Sinusitis Acute 03/27/2008 ARNALDO BARRAZA, HENRY S 461.9 Sinusitis Acute 03/27/2008 JUSTIN ALSTON DO K 461.9 Sinusitis Acute 03/27/2008 IONA SEN APRNIDI A 461.9 Sinusitis Acute 03/27/2008 KIMI HILARIO APRN 461.9 Sinusitis Acute 03/27/2008 JUSTIN ALSTON DO K 461.9 Sinusitis Acute 03/27/2008 PRASAD PAVON, LACIE E 461.9 Sinusitis Acute 03/27/2008 PRASAD PAVON, LACIE E 461.9 Sinusitis Acute 03/27/2008 PRASAD PAVON, LACIE E 461.9 Sinusitis Acute 03/27/2008 PRASAD PAVON, LACIE E 461.9 Sinusitis Acute 04/04/2008 ANITA MCINTOSH APRNNDA S V58.69 Medication High Risk 04/04/2008 V58.69 Medication High Risk 04/04/2008 JUSTIN ALSTON DO K V58.69 Medication High Risk 04/04/2008 V58.69 Medication High Risk 04/04/2008 ARNALDO BARRAZA HENRY S V58.69 Medication High Risk 04/04/2008 V58.69 Medication High Risk 04/04/2008 ARNALDO BARRAZA, HENRY S V58.69 Medication High Risk 04/04/2008 ARNALDO BARRAZA, HENRY S V58.69 Medication High Risk 04/04/2008 ARNALDO BARRAZA HENRY S V58.69 Medication High Risk 04/04/2008 JUSTIN ALSTON DO V58.69 Medication High Risk 04/04/2008 EVANGELINA SEN APRN A V58.69 Medication High Risk 04/04/2008 KIMI HILARIO APRN V58.69 Medication High Risk 04/04/2008 JUSTIN ALSTON DO V58.69 Medication High Risk 04/04/2008 LACIE PARHAM RN E V58.69 Medication High Risk 04/04/2008 LACIE PARHAM RN V58.69 Medication High Risk 04/04/2008 LACIE PARHAM RN V58.69 Medication High Risk 04/04/2008 LACIE PARHAM RN V58.69 Medication High Risk 04/22/2008 HENRY MCINTOSH APRN 719.43 Pain In Joint Involving Forearm 04/22/2008 719.43 Pain In Joint Involving Forearm 04/22/2008 JUSTIN ALSTON DO 719.43 Pain In Joint Involving Forearm 04/22/2008 719.43 Pain In Joint Involving Forearm 04/22/2008 HENRY MCINTOSH APRN 719.43 Pain In Joint Involving Forearm 04/22/2008 719.43 Pain In Joint Involving Forearm 04/22/2008 HENRY MCINTOSH APRN S 719.43 Pain In Joint Involving Forearm 04/22/2008 HENRY MCINTOSH APRN S 719.43 Pain In Joint Involving Forearm 04/22/2008 HENRY MCINTOSH APRN S 719.43 Pain In Joint Involving Forearm 04/22/2008 JUSTIN ALSTON DO K 719.43 Pain In Joint Involving Forearm 04/22/2008 EVANGELINA SEN APRN A 719.43 Pain In Joint Involving Forearm 04/22/2008 KIMI HILARIO APRN 719.43 Pain In Joint Involving Forearm 04/22/2008 JUSTIN ALSTON DO 719.43 Pain In Joint Involving Forearm 04/22/2008 LACIE PARHAM RN 719.43 Pain In Joint Involving Forearm 04/22/2008 LACIE PARHAM RN 719.43 Pain In Joint Involving Forearm 04/22/2008 LACIE PARHAM RN E 719.43 Pain In Joint Involving Forearm 04/22/2008 LACIE PARHAM RN 719.43 Pain In Joint Involving Forearm 04/26/2008 ABRAHAN MCINTOSH APRNA S 300.00 An Anxiety Unspec 04/26/2008 ABRAHAN MCINTOSH APRNA S 787.02 Nausea Alone 04/26/2008 300.00 An Anxiety Unspec 04/26/2008 787.02 Nausea Alone 04/26/2008 ALSTON DO, JUSTIN K 300.00 An Anxiety Unspec 04/26/2008 ALSTON DO, JUSTIN K 787.02 Nausea Alone 04/26/2008 300.00 An Anxiety Unspec 04/26/2008 787.02 Nausea Alone 04/26/2008 ANITA MCINTOSH APRNNDA S 300.00 An Anxiety Unspec 04/26/2008 ABRAHAN MCINTOSH APRNA S 787.02 Nausea Alone 04/26/2008 300.00 An Anxiety Unspec 04/26/2008 787.02 Nausea Alone 04/26/2008 ANITA MCINTOSH APRNNDA S 300.00 An Anxiety Unspec 04/26/2008 ABRAHAN MCINTOSH APRNA S 787.02 Nausea Alone 04/26/2008 ABRAHAN MCINTOSH APRNA S 300.00 An Anxiety Unspec 04/26/2008 ABRAHAN MCINTOSH APRNA S 787.02 Nausea Alone 04/26/2008 ABRAHAN MCINTOSH APRNA S 300.00 An Anxiety Unspec 04/26/2008 ABRAHAN MCINTOSH APRNA S 787.02 Nausea Alone 04/26/2008 ALSTON DO, JUSTIN K 300.00 An Anxiety Unspec 04/26/2008 ALSTON DO, JUSTIN K 787.02 Nausea Alone 04/26/2008 MCKINLEYMigue BARRAZA EVANGELINA A 300.00 An Anxiety Unspec 04/26/2008 MCKINLEYMigue BARRAZA EVANGELINA A 787.02 Nausea Alone 04/26/2008 KIMI HILARIO APRN 300.00 An Anxiety Unspec 04/26/2008 KIMI HILARIO APRN 787.02 Nausea Alone 04/26/2008 ALSTON DO, JUSTIN K 300.00 An Anxiety Unspec 04/26/2008 ALSTON DO, JUSTIN K 787.02 Nausea Alone 04/26/2008 LACIE PARHAM RN 300.00 An Anxiety Unspec 04/26/2008 LACIE PARHAM RN 787.02 Nausea Alone 04/26/2008 LACIE PARHAM RN 300.00 An Anxiety Unspec 04/26/2008 PRASAD PAVON, LACIE De Souza 787.02 Nausea Alone 04/26/2008 PRASAD PAVON, LACIE De Souza 300.00 An Anxiety Unspec 04/26/2008 PRASAD PAVON, LACIE E 787.02 Nausea Alone 04/26/2008 PRASAD PAVON, LACIE E 300.00 An Anxiety Unspec 04/26/2008 PRASAD PAVON, LACIE De Souza 787.02 Nausea Alone 05/28/2008 HENRY MCINTOSH APRN S 300.02 GENERALIZED ANXIETY DISORDER 05/28/2008 300.02 GENERALIZED ANXIETY DISORDER 05/28/2008 JUSTIN ALSTON DO K 300.02 GENERALIZED ANXIETY DISORDER 05/28/2008 300.02 GENERALIZED ANXIETY DISORDER 05/28/2008 HENRY MCINTOSH APRN S 300.02 GENERALIZED ANXIETY DISORDER 05/28/2008 300.02 GENERALIZED ANXIETY DISORDER 05/28/2008 HENRY MCINTOSH APRN S 300.02 GENERALIZED ANXIETY DISORDER 05/28/2008 HENRY MCINTOSH APRN S 300.02 GENERALIZED ANXIETY DISORDER 05/28/2008 HENRY MCINTOSH APRN S 300.02 GENERALIZED ANXIETY DISORDER 05/28/2008 JUSTIN ALSTON DO K 300.02 GENERALIZED ANXIETY DISORDER 05/28/2008 EVANGELINA SEN APRN 300.02 GENERALIZED ANXIETY DISORDER 05/28/2008 KIMI HILARIO APRN 300.02 GENERALIZED ANXIETY DISORDER 05/28/2008 JUSTIN ALSTON DO K 300.02 GENERALIZED ANXIETY DISORDER 05/28/2008 LACIE PARHAM RN E 300.02 GENERALIZED ANXIETY DISORDER 05/28/2008 LACIE PARHAM RN E 300.02 GENERALIZED ANXIETY DISORDER 05/28/2008 LACIE PARHAM RN E 300.02 GENERALIZED ANXIETY DISORDER 05/28/2008 LACIE PARHAM RN E 300.02 GENERALIZED ANXIETY DISORDER 05/31/2008 HENRY MCINTOSH APRN S 698.9 Pruritus Nos 05/31/2008 HENRY MCINTOSH APRN S 782.1 Rash 05/31/2008 698.9 Pruritus Nos 05/31/2008 782.1 Rash 05/31/2008 JUSTIN ALSTON DO K 698.9 Pruritus Nos 05/31/2008 JUSTIN ALSTON DO K 782.1 Rash 05/31/2008 698.9 Pruritus Nos 05/31/2008 782.1 Rash 05/31/2008 ARNALDO CORE INSPECTOR, HENRY S 698.9 Pruritus Nos 05/31/2008 ARNALDO CORE INSPECTOR, HENRY S 782.1 Rash 05/31/2008 698.9 Pruritus Nos 05/31/2008 782.1 Rash 05/31/2008 ARNALDO CORE INSPECTOR, HENRY S 698.9 Pruritus Nos 05/31/2008 ARNALDO CORE INSPECTOR, HENRY S 782.1 Rash 05/31/2008 ARNALDO CORE INSPECTOR, HENRY S 698.9 Pruritus Nos 05/31/2008 ARNALDO CORE INSPECTOR, HENRY S 782.1 Rash 05/31/2008 ARNALDO CORE INSPECTOR, HENRY S 698.9 Pruritus Nos 05/31/2008 ARNALDO CORE INSPECTOR, HENRY S 782.1 Rash 05/31/2008 ALSTON DO, JUSTIN K 698.9 Pruritus Nos 05/31/2008 ALSTON DO, JUSTIN K 782.1 Rash 05/31/2008 MCKINLEY CORE INSPECTOR, EVANGELINA A 698.9 Pruritus Nos 05/31/2008 MCKINLEY CORE INSPECTOR, EVANGELINA A 782.1 Rash 05/31/2008 LISA HILARIO APRNTH D 698.9 Pruritus Nos 05/31/2008 LISA HILARIO APRNTH D 782.1 Rash 05/31/2008 ALSTON DO, JUSTIN K 698.9 Pruritus Nos 05/31/2008 ALSTON DO, JUSTIN K 782.1 Rash 05/31/2008 PRASAD PAVON, LACIE E 698.9 Pruritus Nos 05/31/2008 PRASAD PAVON, LACIE E 782.1 Rash 05/31/2008 PRASAD PAVON, LACIE E 698.9 Pruritus Nos 05/31/2008 PRASAD PAVON, LACIE E 782.1 Rash 05/31/2008 PRASAD PAVON, LACIE E 698.9 Pruritus Nos 05/31/2008 PRASAD PAVON, LACIE E 782.1 Rash 05/31/2008 PRASAD PAVON, LACIE E 698.9 Pruritus Nos 05/31/2008 PRASAD PAVON, LACIE E 782.1 Rash 06/02/2008 ARNALDO BARRAZA, HENRY S 296.90 UNSPECIFIED EPISODIC MOOD DISORDER 06/02/2008 296.90 UNSPECIFIED EPISODIC MOOD DISORDER 06/02/2008 ALSTON DO, JUSTIN K 296.90 UNSPECIFIED EPISODIC MOOD DISORDER 06/02/2008 296.90 UNSPECIFIED EPISODIC MOOD DISORDER 06/02/2008 ARNALDO BARRAZA, HENRY S 296.90 UNSPECIFIED EPISODIC MOOD DISORDER 06/02/2008 296.90 UNSPECIFIED EPISODIC MOOD DISORDER 06/02/2008 ARNALDO GOINSN, HENRY S 296.90 UNSPECIFIED EPISODIC MOOD DISORDER 06/02/2008 ANITA MCINTOSH APRNNDA S 296.90 UNSPECIFIED EPISODIC MOOD DISORDER 06/02/2008 ARNALDO GOINSN, HENRY S 296.90 UNSPECIFIED EPISODIC MOOD DISORDER 06/02/2008 ALSTON DO, JUSTIN K 296.90 UNSPECIFIED EPISODIC MOOD DISORDER 06/02/2008 EVANGELINA SEN APRN A 296.90 UNSPECIFIED EPISODIC MOOD DISORDER 06/02/2008 KIMI HILARIO APRN 296.90 UNSPECIFIED EPISODIC MOOD DISORDER 06/02/2008 ALSTON DO JUSTIN K 296.90 UNSPECIFIED EPISODIC MOOD DISORDER 06/02/2008 PRASAD RN, LACIE E 296.90 UNSPECIFIED EPISODIC MOOD DISORDER 06/02/2008 PRASAD RN, LACIE E 296.90 UNSPECIFIED EPISODIC MOOD DISORDER 06/02/2008 PRASAD RN, LACIE E 296.90 UNSPECIFIED EPISODIC MOOD DISORDER 06/02/2008 PRASAD RN, LACIE E 296.90 UNSPECIFIED EPISODIC MOOD DISORDER 08/11/2008 ANITA MCINTOSH APRNNDA S 133.0 Scabies 08/11/2008 133.0 Scabies 08/11/2008 ALSTON DO JUSTIN K 133.0 Scabies 08/11/2008 133.0 Scabies 08/11/2008 ANITA MCINTOSH APRNNDA S 133.0 Scabies 08/11/2008 133.0 Scabies 08/11/2008 ANITA MCINTOSH APRNNDA S 133.0 Scabies 08/11/2008 ANITA MCINTOSH APRNNDA S 133.0 Scabies 08/11/2008 ANITA MCINTOSH APRNNDA S 133.0 Scabies 08/11/2008 ALSTON DO JUSTIN K 133.0 Scabies 08/11/2008 IONA SEN APRNIDI A 133.0 Scabies 08/11/2008 KIMI HILARIO APRN 133.0 Scabies 08/11/2008 ALSTON JUSTIN MURGUIA K 133.0 Scabies 08/11/2008 PRASAD RN, LACIE E 133.0 Scabies 08/11/2008 PRASAD RN, LACIE E 133.0 Scabies 08/11/2008 PRASAD RN, LACIE E 133.0 Scabies 08/11/2008 PRASAD RN, LACIE E 133.0 Scabies 08/18/2008 ANITA MCINTOSH APRNNDA S 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 08/18/2008 ARNALDO GOINSN HENRY S 493.02 Extrinsic Asthma With (acute) Exacerbation 08/18/2008 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 08/18/2008 493.02 Extrinsic Asthma With (acute) Exacerbation 08/18/2008 ALSTON DO JUSTIN K 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 08/18/2008 ALSTON DO JUSTIN K 493.02 Extrinsic Asthma With (acute) Exacerbation 08/18/2008 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 08/18/2008 493.02 Extrinsic Asthma With (acute) Exacerbation 08/18/2008 ARNALDO GOINSN, HENRY S 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 08/18/2008 ARNALDO BARRAZA, HENRY S 493.02 Extrinsic Asthma With (acute) Exacerbation 08/18/2008 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 08/18/2008 493.02 Extrinsic Asthma With (acute) Exacerbation 08/18/2008 ARNALDO GOINSN, HENRY S 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 08/18/2008 ARNALDO BARRAZA HENRY S 493.02 Extrinsic Asthma With (acute) Exacerbation 08/18/2008 ARNALDO CORE INSPECTOR, HENRY S 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 08/18/2008 ARNALDO CORE INSPECTOR, HENRY S 493.02 Extrinsic Asthma With (acute) Exacerbation 08/18/2008 ARNALDO CORE INSPECTOR, HENRY S 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 08/18/2008 ARNALDO CORE INSPECTOR, HENRY S 493.02 Extrinsic Asthma With (acute) Exacerbation 08/18/2008 ALSTON DO JUSTIN K 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 08/18/2008 ALSTON DO JUSTIN K 493.02 Extrinsic Asthma With (acute) Exacerbation 08/18/2008 MCKINLEY CORE INSPECTOR, EVANGELINA A 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 08/18/2008 MCKINLEY CORE INSPECTOR, EVANGELINA A 493.02 Extrinsic Asthma With (acute) Exacerbation 08/18/2008 KIMI HILARIO APRN 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 08/18/2008 KIMI HILARIO APRN 493.02 Extrinsic Asthma With (acute) Exacerbation 08/18/2008 JUSTIN ALSTON DO K 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 08/18/2008 JUSTIN ALSTON DO 493.02 Extrinsic Asthma With (acute) Exacerbation 08/18/2008 LACIE PARHAM RN E 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 08/18/2008 LACIE PARHAM RN E 493.02 Extrinsic Asthma With (acute) Exacerbation 08/18/2008 LACIE PARHAM RN E 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 08/18/2008 LACIE PARHAM RN E 493.02 Extrinsic Asthma With (acute) Exacerbation 08/18/2008 LACIE PARHAM RN E 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 08/18/2008 LACIE PARHAM RN E 493.02 Extrinsic Asthma With (acute) Exacerbation 08/18/2008 LACIE PARHAM RN E 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 08/18/2008 LACIE PARHAM RN E 493.02 Extrinsic Asthma With (acute) Exacerbation 09/11/2008 ANITA MCINTOSH APRNNDA S 529.0 Glossitis 09/11/2008 529.0 Glossitis 09/11/2008 JUSTIN ALSTON DO 529.0 Glossitis 09/11/2008 529.0 Glossitis 09/11/2008 ARNALDO BARRAZA HENRY S 529.0 Glossitis 09/11/2008 529.0 Glossitis 09/11/2008 ARNALDO BARRAZA HENRY S 529.0 Glossitis 09/11/2008 ARNALDO BARRAZA HENRY S 529.0 Glossitis 09/11/2008 ANITA MCINTOSH APRNNDA S 529.0 Glossitis 09/11/2008 JUSTIN ALSTON DO K 529.0 Glossitis 09/11/2008 MCKINLEY BARRAZA, EVANGELINA A 529.0 Glossitis 09/11/2008 KIMI HILARIO APRN 529.0 Glossitis 09/11/2008 ALSTON DO, JUSTIN K 529.0 Glossitis 09/11/2008 PRASAD RN, LACIE E 529.0 Glossitis 09/11/2008 PRASAD RN, LACIE E 529.0 Glossitis 09/11/2008 PRASAD RN, LACIE E 529.0 Glossitis 09/11/2008 PRASAD PAVON, LACIE E 529.0 Glossitis 09/20/2008 ARNALDO BARRAZA HENRY S 825.20 Fracture Of Unspecified Bone(s) Of Foot (except Toes) Closed 09/20/2008 825.20 Fracture Of Unspecified Bone(s) Of Foot (except Toes) Closed 09/20/2008 JUSTIN ALSTON DO K 825.20 Fracture Of Unspecified Bone(s) Of Foot (except Toes) Closed 09/20/2008 825.20 Fracture Of Unspecified Bone(s) Of Foot (except Toes) Closed 09/20/2008 ABRAHAN MCINTOSH APRNA S 825.20 Fracture Of Unspecified Bone(s) Of Foot (except Toes) Closed 09/20/2008 825.20 Fracture Of Unspecified Bone(s) Of Foot (except Toes) Closed 09/20/2008 ANITA MCINTOSH APRNNDA S 825.20 Fracture Of Unspecified Bone(s) Of Foot (except Toes) Closed 09/20/2008 ANITA MCINTOSH APRNNDA S 825.20 Fracture Of Unspecified Bone(s) Of Foot (except Toes) Closed 09/20/2008 ANITA MCINTOSH APRNNDA S 825.20 Fracture Of Unspecified Bone(s) Of Foot (except Toes) Closed 09/20/2008 JUSTIN ALSTON DO K 825.20 Fracture Of Unspecified Bone(s) Of Foot (except Toes) Closed 09/20/2008 EVANGELINA SEN APRN 825.20 Fracture Of Unspecified Bone(s) Of Foot (except Toes) Closed 09/20/2008 KIMI HILARIO APRN 825.20 Fracture Of Unspecified Bone(s) Of Foot (except Toes) Closed 09/20/2008 JUSTIN ALSTON DO K 825.20 Fracture Of Unspecified Bone(s) Of Foot (except Toes) Closed 09/20/2008 LACIE PARHAM RN E 825.20 Fracture Of Unspecified Bone(s) Of Foot (except Toes) Closed 09/20/2008 LACIE PARHAM RN 825.20 Fracture Of Unspecified Bone(s) Of Foot (except Toes) Closed 09/20/2008 LACIE PARHAM RN E 825.20 Fracture Of Unspecified Bone(s) Of Foot (except Toes) Closed 09/20/2008 LACIE PARHAM RN 825.20 Fracture Of Unspecified Bone(s) Of Foot (except Toes) Closed 09/23/2008 HENRY MCINTOSH APRN S 719.47 Pain In Joint Involving Ankle And Foot 09/23/2008 719.47 Pain In Joint Involving Ankle And Foot 09/23/2008 JUSTIN ALSTON DO 719.47 Pain In Joint Involving Ankle And Foot 09/23/2008 719.47 Pain In Joint Involving Ankle And Foot 09/23/2008 HENRY MCINTOSH APRN S 719.47 Pain In Joint Involving Ankle And Foot 09/23/2008 719.47 Pain In Joint Involving Ankle And Foot 09/23/2008 HENRY MCINTOSH APRN S 719.47 Pain In Joint Involving Ankle And Foot 09/23/2008 ABRAHAN MCINTOSH APRNA S 719.47 Pain In Joint Involving Ankle And Foot 09/23/2008 HENRY MCINTOSH APRN S 719.47 Pain In Joint Involving Ankle And Foot 09/23/2008 JUSTIN ALSTON DO 719.47 Pain In Joint Involving Ankle And Foot 09/23/2008 EVANGELINA SEN APRN 719.47 Pain In Joint Involving Ankle And Foot 09/23/2008 KIMI HILARIO APRN 719.47 Pain In Joint Involving Ankle And Foot 09/23/2008 JUSTIN ALSTON DO 719.47 Pain In Joint Involving Ankle And Foot 09/23/2008 LACIE PARHAM RN 719.47 Pain In Joint Involving Ankle And Foot 09/23/2008 LACIE PARHAM RN 719.47 Pain In Joint Involving Ankle And Foot 09/23/2008 LACIE PARHAM RN 719.47 Pain In Joint Involving Ankle And Foot 09/23/2008 LACIE PARHAM RN 719.47 Pain In Joint Involving Ankle And Foot 11/10/2008 ARNALDO CORE INSPECTOR, HENRY S 724.3 Sciatica 11/10/2008 724.3 Sciatica 11/10/2008 ALSTON , JUSTIN K 724.3 Sciatica 11/10/2008 724.3 Sciatica 11/10/2008 ARNALDO CORE INSPECTOR, HENRY S 724.3 Sciatica 11/10/2008 724.3 Sciatica 11/10/2008 ARNALDO CORE INSPECTOR, HENRY S 724.3 Sciatica 11/10/2008 ARNALDO CORE INSPECTOR, HENRY S 724.3 Sciatica 11/10/2008 ARNALDO CORE INSPECTOR, HENRY S 724.3 Sciatica 11/10/2008 JUSTIN ALSTON DO K 724.3 Sciatica 11/10/2008 EVANGELINA SEN APRN A 724.3 Sciatica 11/10/2008 KIMI HILARIO APRN 724.3 Sciatica 11/10/2008 JUSTIN ALSTON DO K 724.3 Sciatica 11/10/2008 PRASAD RN, LACIE E 724.3 Sciatica 11/10/2008 PRASAD RN, LACIE E 724.3 Sciatica 11/10/2008 PRASAD RN, LACIE E 724.3 Sciatica 11/10/2008 PRASAD RN, LACIE E 724.3 Sciatica 12/04/2008 ARNALDO BARRAZA, HENRY S 477.0 Allergic Rhinitis Due To Pollen 12/04/2008 477.0 Allergic Rhinitis Due To Pollen 12/04/2008 JUSTIN ALSTON DO K 477.0 Allergic Rhinitis Due To Pollen 12/04/2008 477.0 Allergic Rhinitis Due To Pollen 12/04/2008 ARNALDO GOINSN, HENRY S 477.0 Allergic Rhinitis Due To Pollen 12/04/2008 477.0 Allergic Rhinitis Due To Pollen 12/04/2008 ARNALDO BARRAZA, HENRY S 477.0 Allergic Rhinitis Due To Pollen 12/04/2008 ARNALDO GOINSNANITAHENRY S 477.0 Allergic Rhinitis Due To Pollen 12/04/2008 ANITA MCINTOSH APRNNDA S 477.0 Allergic Rhinitis Due To Pollen 12/04/2008 JUSTIN ALSTON DO K 477.0 Allergic Rhinitis Due To Pollen 12/04/2008 EVANGELINA SEN APRN A 477.0 Allergic Rhinitis Due To Pollen 12/04/2008 KIMI HILARIO APRN 477.0 Allergic Rhinitis Due To Pollen 12/04/2008 JUSTIN ALSTON DO 477.0 Allergic Rhinitis Due To Pollen 12/04/2008 PRASAD PAVON, LACIE E 477.0 Allergic Rhinitis Due To Pollen 12/04/2008 LACIE PARHAM RN 477.0 Allergic Rhinitis Due To Pollen 12/04/2008 LACIE PARHAM RN E 477.0 Allergic Rhinitis Due To Pollen 12/04/2008 PRASAD PAVON, LACIE E 477.0 Allergic Rhinitis Due To Pollen 01/03/2009 ABRAHAN MCINTOSH APRNA S 780.79 Malaise And Fatigue 01/03/2009 780.79 Malaise And Fatigue 01/03/2009 JUSTIN ALSTON DO K 780.79 Malaise And Fatigue 01/03/2009 780.79 Malaise And Fatigue 01/03/2009 ANITA MCINTOSH APRNNDA S 780.79 Malaise And Fatigue 01/03/2009 780.79 Malaise And Fatigue 01/03/2009 ANITA MCINTOSH APRNNDA S 780.79 Malaise And Fatigue 01/03/2009 ANITA MCINTOSH APRNNDA S 780.79 Malaise And Fatigue 01/03/2009 ANITA MCINTOSH APRNNDA S 780.79 Malaise And Fatigue 01/03/2009 JUSTIN ALSTON DO K 780.79 Malaise And Fatigue 01/03/2009 EVANGELINA SEN APRN A 780.79 Malaise And Fatigue 01/03/2009 KIMI HILARIO APRN 780.79 Malaise And Fatigue 01/03/2009 JUSTIN ALSTON DO 780.79 Malaise And Fatigue 01/03/2009 LACIE PARHAM RN E 780.79 Malaise And Fatigue 01/03/2009 PRASAD PAVON, LACIE E 780.79 Malaise And Fatigue 01/03/2009 PRASAD PAVON, LACIE E 780.79 Malaise And Fatigue 01/03/2009 PRASAD PAVON, LACIE E 780.79 Malaise And Fatigue 08/06/2010 ANITA MCINTOSH APRNNDA S 053.9 Herpes Zoster Without Complication 08/06/2010 053.9 Herpes Zoster Without Complication 08/06/2010 ALSTON DO, JUSTIN K 053.9 Herpes Zoster Without Complication 08/06/2010 053.9 Herpes Zoster Without Complication 08/06/2010 ARNALDO CORE INSPECTOR, HENRY S 053.9 Herpes Zoster Without Complication 08/06/2010 053.9 Herpes Zoster Without Complication 08/06/2010 ARNALDO CORE INSPECTOR, HENRY S 053.9 Herpes Zoster Without Complication 08/06/2010 ARNALDO CORE INSPECTOR, HENRY S 053.9 Herpes Zoster Without Complication 08/06/2010 ARNALDO CORE INSPECTOR, HENRY S 053.9 Herpes Zoster Without Complication 08/06/2010 ALSTON DOPRASHANTHA K 053.9 Herpes Zoster Without Complication 08/06/2010 MCKINLEY GOINSN, EVANGELINA A 053.9 Herpes Zoster Without Complication 08/06/2010 KIMI HILARIO APRN 053.9 Herpes Zoster Without Complication 08/06/2010 ALSTON JUSTIN MURGUIA K 053.9 Herpes Zoster Without Complication 08/06/2010 PRASAD RN, LACIE E 053.9 Herpes Zoster Without Complication 08/06/2010 PRASAD RN, LACIE E 053.9 Herpes Zoster Without Complication 08/06/2010 PRASAD RN, LACIE E 053.9 Herpes Zoster Without Complication 08/06/2010 PRASAD PAVON, LACIE E 053.9 Herpes Zoster Without Complication 01/21/2011 ARNALDO CORE INSPECTOR, HENRY S 461.9 Sinusitis Acute 01/21/2011 ARNALDO CORE INSPECTOR, HENRY S 698.9 Unspecified Pruritic Disorder 01/21/2011 461.9 Sinusitis Acute 01/21/2011 698.9 Unspecified Pruritic Disorder 01/21/2011 ALSTON DO JUSTIN K 461.9 Sinusitis Acute 01/21/2011 ALSTON DO JUSTIN K 698.9 Unspecified Pruritic Disorder 01/21/2011 461.9 Sinusitis Acute 01/21/2011 698.9 Unspecified Pruritic Disorder 01/21/2011 ARNALDO CORE INSPECTOR, HENRY S 461.9 Sinusitis Acute 01/21/2011 ARNALDO CORE INSPECTOR, HENRY S 698.9 Unspecified Pruritic Disorder 01/21/2011 461.9 Sinusitis Acute 01/21/2011 698.9 Unspecified Pruritic Disorder 01/21/2011 ARNALDO CORE INSPECTOR, HENRY S 461.9 Sinusitis Acute 01/21/2011 ARNALDO CORE INSPECTOR, HENRY S 698.9 Unspecified Pruritic Disorder 01/21/2011 ARNALDO CORE INSPECTOR, HENRY S 461.9 Sinusitis Acute 01/21/2011 ARNALDO CORE INSPECTOR, HENRY S 698.9 Unspecified Pruritic Disorder 01/21/2011 ARNALDO CORE INSPECTOR, HENRY S 461.9 Sinusitis Acute 01/21/2011 ARNALDO CORE INSPECTOR, HENRY S 698.9 Unspecified Pruritic Disorder 01/21/2011 ALSTON DO, JUSTIN K 461.9 Sinusitis Acute 01/21/2011 ALSTON DO, JUSTIN K 698.9 Unspecified Pruritic Disorder 01/21/2011 MCKINLEY CORE INSPECTOR, EVANGELINA A 461.9 Sinusitis Acute 01/21/2011 MCKINLEY CORE INSPECTOR, EVANGELINA A 698.9 Unspecified Pruritic Disorder 01/21/2011 GARTON CORE INSPECTORLUIS CamarenaKIMI D 461.9 Sinusitis Acute 01/21/2011 GARTON CORE INSPECTOR, KIMI D 698.9 Unspecified Pruritic Disorder 01/21/2011 ALSTON DO, JUSTIN K 461.9 Sinusitis Acute 01/21/2011 ALSTON DO, JUSTIN K 698.9 Unspecified Pruritic Disorder 01/21/2011 PRASAD PAVON, LACIE E 461.9 Sinusitis Acute 01/21/2011 PRASAD PAVON, LACIE E 698.9 Unspecified Pruritic Disorder 01/21/2011 PRASAD PAVON, LACIE E 461.9 Sinusitis Acute 01/21/2011 LACIE PARHAM RN E 698.9 Unspecified Pruritic Disorder 01/21/2011 LACIE PARHAM RN E 461.9 Sinusitis Acute 01/21/2011 LACIE PARHAM RN E 698.9 Unspecified Pruritic Disorder 01/21/2011 PRASAD PAVON, LACIE E 461.9 Sinusitis Acute 01/21/2011 PRASAD PAVON, LACIE E 698.9 Unspecified Pruritic Disorder 02/08/2011 ARNALDO GOINSN, HENRY S 815.00 Closed Fracture Of Metacarpal Bone(s) Site Unspecified 02/08/2011 815.00 Closed Fracture Of Metacarpal Bone(s) Site Unspecified 02/08/2011 ALSTON DO, JUSTIN K 815.00 Closed Fracture Of Metacarpal Bone(s) Site Unspecified 02/08/2011 815.00 Closed Fracture Of Metacarpal Bone(s) Site Unspecified 02/08/2011 ARNALDO CORE INSPECTOR, HENRY S 815.00 Closed Fracture Of Metacarpal Bone(s) Site Unspecified 02/08/2011 815.00 Closed Fracture Of Metacarpal Bone(s) Site Unspecified 02/08/2011 ARNALDO CORE INSPECTORANITAHENRY S 815.00 Closed Fracture Of Metacarpal Bone(s) Site Unspecified 02/08/2011 ARNALDO CORE INSPECTORANITA CamarenaNDA S 815.00 Closed Fracture Of Metacarpal Bone(s) Site Unspecified 02/08/2011 ARNALDO CORE INSPECTORANITA CamarenaNDA S 815.00 Closed Fracture Of Metacarpal Bone(s) Site Unspecified 02/08/2011 ALSTON DO JUSTIN K 815.00 Closed Fracture Of Metacarpal Bone(s) Site Unspecified 02/08/2011 EVANGELINA SEN APRN 815.00 Closed Fracture Of Metacarpal Bone(s) Site Unspecified 02/08/2011 KIMI HILARIO APRN 815.00 Closed Fracture Of Metacarpal Bone(s) Site Unspecified 02/08/2011 ALSTON DO JUSTIN K 815.00 Closed Fracture Of Metacarpal Bone(s) Site Unspecified 02/08/2011 LACIE PARHAM RN E 815.00 Closed Fracture Of Metacarpal Bone(s) Site Unspecified 02/08/2011 LACIE PARHAM RN E 815.00 Closed Fracture Of Metacarpal Bone(s) Site Unspecified 02/08/2011 LACIE PARHAM RN E 815.00 Closed Fracture Of Metacarpal Bone(s) Site Unspecified 02/08/2011 LACIE PARHAM RN E 815.00 Closed Fracture Of Metacarpal Bone(s) Site Unspecified 03/11/2011 ANITA MCINTOSH APRNNDA S 300.00 AN ANXIETY UNSPEC 03/11/2011 ANITA MCINTOSH APRNNDA S 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 03/11/2011 300.00 AN ANXIETY UNSPEC 03/11/2011 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 03/11/2011 JUSTIN ALSTON DO K 300.00 AN ANXIETY UNSPEC 03/11/2011 JUSTIN ALSTON DO 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 03/11/2011 300.00 AN ANXIETY UNSPEC 03/11/2011 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 03/11/2011 ANITA MCINTOSH APRNNDA S 300.00 AN ANXIETY UNSPEC 03/11/2011 ANITA MCINTOSH APRNNDA S 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 03/11/2011 300.00 AN ANXIETY UNSPEC 03/11/2011 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 03/11/2011 ARNALDO BARRAZA HENRY S 300.00 AN ANXIETY UNSPEC 03/11/2011 ANITA MCINTOSH APRNNDA S 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 03/11/2011 ANITA MCINTOSH APRNNDA S 300.00 AN ANXIETY UNSPEC 03/11/2011 ANITA MCINTOSH APRNNDA S 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 03/11/2011 ARNALDO BARRAZA HENRY S 300.00 AN ANXIETY UNSPEC 03/11/2011 ANITA MCINTOSH APRNNDA S 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 03/11/2011 JUSTIN ALSTON DO K 300.00 AN ANXIETY UNSPEC 03/11/2011 JUSTIN ALSTON DO 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 03/11/2011 EVANGELINA SEN APRN A 300.00 AN ANXIETY UNSPEC 03/11/2011 EVANGELINA SEN APRN A 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 03/11/2011 KIMI HILARIO APRN 300.00 AN ANXIETY UNSPEC 03/11/2011 KIMI HILARIO APRN 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 03/11/2011 JUSTIN ALSTON DO 300.00 AN ANXIETY UNSPEC 03/11/2011 JUSTIN ALSTON DO 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 03/11/2011 LACIE PARHAM RN 300.00 AN ANXIETY UNSPEC 03/11/2011 LACIE PARHAM RN 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 03/11/2011 PARHAM RN, LACIE E 300.00 AN ANXIETY UNSPEC 03/11/2011 PRASAD PAVON, LACIE E 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 03/11/2011 PRASDA PAVON, LACIE E 300.00 AN ANXIETY UNSPEC 03/11/2011 PRASAD PAVON, LACIE E 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 03/11/2011 PRASAD PAVON, LACIE E 300.00 AN ANXIETY UNSPEC 03/11/2011 PRASAD PAVON, LACIE E 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 05/11/2011 HENRY MCINTOSH APRN S 305.1 NONDEPENDENT TOBACCO USE DISORDER 05/11/2011 305.1 NONDEPENDENT TOBACCO USE DISORDER 05/11/2011 JUSTIN ALSTON DO 305.1 NONDEPENDENT TOBACCO USE DISORDER 05/11/2011 305.1 NONDEPENDENT TOBACCO USE DISORDER 05/11/2011 HENRY MCINTOSH APRN S 305.1 NONDEPENDENT TOBACCO USE DISORDER 05/11/2011 305.1 NONDEPENDENT TOBACCO USE DISORDER 05/11/2011 HENRY MCINTOSH APRN S 305.1 NONDEPENDENT TOBACCO USE DISORDER 05/11/2011 HENRY MCINTOSH APRN S 305.1 NONDEPENDENT TOBACCO USE DISORDER 05/11/2011 HENRY MCINTOSH APRN S 305.1 NONDEPENDENT TOBACCO USE DISORDER 05/11/2011 JUSTIN ALSTON DO 305.1 NONDEPENDENT TOBACCO USE DISORDER 05/11/2011 EVANGELINA SEN APRN 305.1 NONDEPENDENT TOBACCO USE DISORDER 05/11/2011 KIMI HILARIO APRN 305.1 NONDEPENDENT TOBACCO USE DISORDER 05/11/2011 JUSTIN ALSTON DO 305.1 NONDEPENDENT TOBACCO USE DISORDER 05/11/2011 PRASAD PAVON, LACIE E 305.1 NONDEPENDENT TOBACCO USE DISORDER 05/11/2011 PRASAD PAVON, LACIE E 305.1 NONDEPENDENT TOBACCO USE DISORDER 05/11/2011 PRASAD PAVON, LACIE E 305.1 NONDEPENDENT TOBACCO USE DISORDER 05/11/2011 PRASAD PAVON, LACIE E 305.1 NONDEPENDENT TOBACCO USE DISORDER 09/22/2011 HENRY MCINTOSH APRN S 724.2 LUMBAGO 09/22/2011 724.2 LUMBAGO 09/22/2011 JUSTIN ALSTON DO 724.2 LUMBAGO 09/22/2011 724.2 LUMBAGO 09/22/2011 ANITA MCINTOSH APRNNDA S 724.2 LUMBAGO 09/22/2011 724.2 LUMBAGO 09/22/2011 ARNALDO BARRAZA, HENRY S 724.2 LUMBAGO 09/22/2011 ANITA MCINTOSH APRNNDA S 724.2 LUMBAGO 09/22/2011 ANITA MCINTOSH APRNNDA S 724.2 LUMBAGO 09/22/2011 JUSTIN ALSTON DO K 724.2 LUMBAGO 09/22/2011 EVANGELINA SEN APRN 724.2 LUMBAGO 09/22/2011 KIMI HILARIO APRN 724.2 LUMBAGO 09/22/2011 JUSTIN ALSTON DO K 724.2 LUMBAGO 09/22/2011 PRASAD PAVON, LACIE E 724.2 LUMBAGO 09/22/2011 PRASAD PAVON, LACIE E 724.2 LUMBAGO 09/22/2011 PRASAD PAVON, LACIE E 724.2 LUMBAGO 09/22/2011 PRASAD PAVON, LACIE E 724.2 LUMBAGO 02/16/2012 ANITA MCINTOSH APRNNDA S 298.9 P PSYCHOSIS NOS 02/16/2012 ANITA MCINTOSH APRNNDA S 307.47 SI DYSSOMNIA NOS 02/16/2012 ANITA MCINTOSH APRNNDA S 311 DEPRESSIVE DISORDER NOS 02/16/2012 ANITA MCINTOSH APRNNDA S 627.8 PERIMENOPAUSE 02/16/2012 ANITA MCINTOSH APRNNDA S V58.69 MEDICATION HIGH RISK 02/16/2012 298.9 P PSYCHOSIS NOS 02/16/2012 307.47 SI DYSSOMNIA NOS 02/16/2012 311 DEPRESSIVE DISORDER NOS 02/16/2012 627.8 PERIMENOPAUSE 02/16/2012 V58.69 MEDICATION HIGH RISK 02/16/2012 PRASHANTH ALSTON DOA K 298.9 P PSYCHOSIS NOS 02/16/2012 PRASHANTH ALSTON DOA K 307.47 SI DYSSOMNIA NOS 02/16/2012 PRASHANTH ALSTON DOA K 311 DEPRESSIVE DISORDER NOS 02/16/2012 PRASHANTH ALSTON DOA K 627.8 PERIMENOPAUSE 02/16/2012 GAMALIEL JUSTIN MURGUIA Kalina V58.69 MEDICATION HIGH RISK 02/16/2012 298.9 P PSYCHOSIS NOS 02/16/2012 307.47 SI DYSSOMNIA NOS 02/16/2012 311 DEPRESSIVE DISORDER NOS 02/16/2012 627.8 PERIMENOPAUSE 02/16/2012 V58.69 MEDICATION HIGH RISK 02/16/2012 ARNALDO CORE INSPECTOR, HENRY S 298.9 P PSYCHOSIS NOS 02/16/2012 ARNALDO CORE INSPECTOR, HENRY S 307.47 SI DYSSOMNIA NOS 02/16/2012 ARNALDO CORE INSPECTOR, HENRY S 311 DEPRESSIVE DISORDER NOS 02/16/2012 ARNALDO CORE INSPECTOR, HENRY S 627.8 PERIMENOPAUSE 02/16/2012 ARNALDO CORE INSPECTOR, HENRY S V58.69 MEDICATION HIGH RISK 02/16/2012 298.9 P PSYCHOSIS NOS 02/16/2012 307.47 SI DYSSOMNIA NOS 02/16/2012 311 DEPRESSIVE DISORDER NOS 02/16/2012 627.8 PERIMENOPAUSE 02/16/2012 V58.69 MEDICATION HIGH RISK 02/16/2012 ARNALDO CORE INSPECTOR, HENRY S 298.9 P PSYCHOSIS NOS 02/16/2012 RANALDO CORE INSPECTOR, HENRY S 307.47 SI DYSSOMNIA NOS 02/16/2012 ARNALDO CORE INSPECTOR, HENRY S 311 DEPRESSIVE DISORDER NOS 02/16/2012 ARNALDO CORE INSPECTOR, HENRY S 627.8 PERIMENOPAUSE 02/16/2012 ARNALDO CORE INSPECTOR, HENRY S V58.69 MEDICATION HIGH RISK 02/16/2012 ARNALDO CORE INSPECTOR, HENRY S 298.9 P PSYCHOSIS NOS 02/16/2012 ARNALDO CORE INSPECTOR, HENRY S 307.47 SI DYSSOMNIA NOS 02/16/2012 ARNALDO CORE INSPECTOR, HENRY S 311 DEPRESSIVE DISORDER NOS 02/16/2012 ARNALDO CORE INSPECTOR, HENRY S 627.8 PERIMENOPAUSE 02/16/2012 ARNALDO CORE INSPECTOR, HENRY S V58.69 MEDICATION HIGH RISK 02/16/2012 ARNALDO CORE INSPECTOR, HENRY S 298.9 P PSYCHOSIS NOS 02/16/2012 ARNALDO CORE INSPECTOR, HENRY S 307.47 SI DYSSOMNIA NOS 02/16/2012 ARNALDO CORE INSPECTOR, HENRY S 311 DEPRESSIVE DISORDER NOS 02/16/2012 ARNALDO GOINSN, HENRY S 627.8 PERIMENOPAUSE 02/16/2012 ARNALDO GOINSN, HENRY S V58.69 MEDICATION HIGH RISK 02/16/2012 ALSTON DO, JUSTIN K 298.9 P PSYCHOSIS NOS 02/16/2012 ALSTON DO, JUSTIN K 307.47 SI DYSSOMNIA NOS 02/16/2012 ALSTON DO, JUSTIN K 311 DEPRESSIVE DISORDER NOS 02/16/2012 ALSTON DO, JUSTIN K 627.8 PERIMENOPAUSE 02/16/2012 ALSTON DO, JUSTIN K V58.69 MEDICATION HIGH RISK 02/16/2012 MCKINLEY CORE INSPECTOR, EVANGELINA A 298.9 P PSYCHOSIS NOS 02/16/2012 MCKINLEY CORE INSPECTOR, EVANGELINA A 307.47 SI DYSSOMNIA NOS 02/16/2012 MCKINLEY CORE INSPECTOR, EVANGELINA A 311 DEPRESSIVE DISORDER NOS 02/16/2012 MCKINLEY CORE INSPECTOR, EVANGELINA A 627.8 PERIMENOPAUSE 02/16/2012 MCKINLEY CORE INSPECTOR, EVANGELINA A V58.69 MEDICATION HIGH RISK 02/16/2012 KIMI HILARIO APRN 298.9 P PSYCHOSIS NOS 02/16/2012 KIMI HILARIO APRN 307.47 SI DYSSOMNIA NOS 02/16/2012 KIMI HILARIO APRN 311 DEPRESSIVE DISORDER NOS 02/16/2012 KIMI HILARIO APRN 627.8 PERIMENOPAUSE 02/16/2012 KIMI HILARIO APRN V58.69 MEDICATION HIGH RISK 02/16/2012 ALSTON DO, JUSTIN K 298.9 P PSYCHOSIS NOS 02/16/2012 ALSTON DO, JUSTIN K 307.47 SI DYSSOMNIA NOS 02/16/2012 ALSTON DO, JUSTIN K 311 DEPRESSIVE DISORDER NOS 02/16/2012 ALSTON DO, JUSTIN K 627.8 PERIMENOPAUSE 02/16/2012 ALSTON DO, JUSTIN K V58.69 MEDICATION HIGH RISK 02/16/2012 LACIE PARHAM RN E 298.9 P PSYCHOSIS NOS 02/16/2012 LACIE PARHAM RN E 307.47 SI DYSSOMNIA NOS 02/16/2012 PARHAM RN, LACIE E 311 DEPRESSIVE DISORDER NOS 02/16/2012 PRASAD PAVON, LACIE E 627.8 PERIMENOPAUSE 02/16/2012 PRASAD PAVON, LACIE E V58.69 MEDICATION HIGH RISK 02/16/2012 PRASAD RN, LACIE E 298.9 P PSYCHOSIS NOS 02/16/2012 PRASAD RN, LACIE E 307.47 SI DYSSOMNIA NOS 02/16/2012 PRASAD PAVON, LACIE E 311 DEPRESSIVE DISORDER NOS 02/16/2012 PRASAD PAVON, LACIE E 627.8 PERIMENOPAUSE 02/16/2012 PRASAD RN, LACIE E V58.69 MEDICATION HIGH RISK 02/16/2012 PRASAD PAVON, LACIE E 298.9 P PSYCHOSIS NOS 02/16/2012 PRASAD PAVON, LACIE E 307.47 SI DYSSOMNIA NOS 02/16/2012 PRASAD PAVON, LACIE E 311 DEPRESSIVE DISORDER NOS 02/16/2012 PRASAD PAVON, LACIE E 627.8 PERIMENOPAUSE 02/16/2012 PRASAD PAVON, LACIE E V58.69 MEDICATION HIGH RISK 02/16/2012 PRASAD PAVON, LACIE E 298.9 P PSYCHOSIS NOS 02/16/2012 PRASAD RN, LACIE E 307.47 SI DYSSOMNIA NOS 02/16/2012 PRASAD PAVON, LACIE E 311 DEPRESSIVE DISORDER NOS 02/16/2012 PRASAD PAVON, LACIE E 627.8 PERIMENOPAUSE 02/16/2012 PRASAD PAVON, LACIE E V58.69 MEDICATION HIGH RISK 03/03/2012 HENRY MCINTOSH APRN S 786.2 COUGH 03/03/2012 786.2 COUGH 03/03/2012 JUSTIN ALSTON DO 786.2 COUGH 03/03/2012 786.2 COUGH 03/03/2012 ANITA MCINTOSH APRNNDA S 786.2 COUGH 03/03/2012 786.2 COUGH 03/03/2012 ANITA MCINTOSH APRNNDA S 786.2 COUGH 03/03/2012 ANITA MCINTOSH APRNNDA S 786.2 COUGH 03/03/2012 ANITA MCINTOSH APRNNDA S 786.2 COUGH 03/03/2012 JUSTIN ALSTON DO 786.2 COUGH 03/03/2012 EVANGELINA SEN APRN 786.2 COUGH 03/03/2012 KIMI HILARIO APRN 786.2 COUGH 03/03/2012 ALSTON DO, JUSTIN K 786.2 COUGH 03/03/2012 PRASAD RN, LACIE E 786.2 COUGH 03/03/2012 PRASAD RN, LACIE De Souza 786.2 COUGH 03/03/2012 PRASAD RN, LACIE E 786.2 COUGH 03/03/2012 PRASAD RN, LACIE E 786.2 COUGH 04/19/2012 GAMALIEL MURGUIA JUSTIN K 466.0 BRONCHITIS, ACUTE 04/19/2012 GAMALIEL MURGUIA JUSTIN K 786.07 WHEEZING 04/19/2012 466.0 BRONCHITIS, ACUTE 04/19/2012 786.07 WHEEZING 04/19/2012 ARNALDO CORE INSPECTOR, HENRY S 466.0 BRONCHITIS, ACUTE 04/19/2012 ARNALDO CORE INSPECTOR, HENRY S 786.07 WHEEZING 04/19/2012 466.0 BRONCHITIS, ACUTE 04/19/2012 786.07 WHEEZING 04/19/2012 ARNALDO CORE INSPECTOR, HENRY S 466.0 BRONCHITIS, ACUTE 04/19/2012 ARNALDO CORE INSPECTOR, HENRY S 786.07 WHEEZING 04/19/2012 ARNALDO CORE INSPECTOR, HENRY S 466.0 BRONCHITIS, ACUTE 04/19/2012 ARNALDO CORE INSPECTOR, HENRY S 786.07 WHEEZING 04/19/2012 ARNALDO CORE INSPECTOR, HENRY S 466.0 BRONCHITIS, ACUTE 04/19/2012 ARNALDO CORE INSPECTOR, HENRY S 786.07 WHEEZING 04/19/2012 ALSTON PRASHANTH MURGUIAA K 466.0 BRONCHITIS, ACUTE 04/19/2012 ALSTON DO JUSTIN K 786.07 WHEEZING 04/19/2012 MCKINLEY CORE INSPECTOR, EVANGELINA A 466.0 BRONCHITIS, ACUTE 04/19/2012 MCKINLEY CORE INSPECTOR, EVANGELINA A 786.07 WHEEZING 04/19/2012 YANELIS CORE INSPECTORKIMI Camarena 466.0 BRONCHITIS, ACUTE 04/19/2012 YANELIS CORE INSPECTORKIMI Camarena 786.07 WHEEZING 04/19/2012 PRASHANTH ALSTON DOA K 466.0 BRONCHITIS, ACUTE 04/19/2012 GAMALIEL MURGUIA JUSTIN K 786.07 WHEEZING 04/19/2012 PRASAD PAVON, LACIE E 466.0 BRONCHITIS, ACUTE 04/19/2012 PRASAD PAVON, LACIE De Souza 786.07 WHEEZING 04/19/2012 PRASAD PAVON, LACIE E 466.0 BRONCHITIS, ACUTE 04/19/2012 PRASAD PAVON, LACIE E 786.07 WHEEZING 04/19/2012 PRASAD RN, LACIE E 466.0 BRONCHITIS, ACUTE 04/19/2012 PRASAD PAVON, LACIE De Souza 786.07 WHEEZING 04/19/2012 PRASAD PAVON, LACIE E 466.0 BRONCHITIS, ACUTE 04/19/2012 PRASAD PAVON, LACIE E 786.07 WHEEZING 07/09/2012 ARNALDO CORE INSPECTOR, HENRY S 723.1 CERVICALGIA 07/09/2012 723.1 CERVICALGIA 07/09/2012 ARNALDO GOINSN, HENRY S 723.1 CERVICALGIA 07/09/2012 ARNALDO GOINSN, HENRY S 723.1 CERVICALGIA 07/09/2012 ARNALDO BARRAZA, HENRY S 723.1 CERVICALGIA 07/09/2012 JUSTIN ALSTON DO 723.1 CERVICALGIA 07/09/2012 MCKINLEY BARRAZA, EVANGELINA A 723.1 CERVICALGIA 07/09/2012 KIMI HILARIO APRN 723.1 CERVICALGIA 07/09/2012 JUSTIN ALSTON DO 723.1 CERVICALGIA 07/09/2012 PRASAD PAVON, LACIE E 723.1 CERVICALGIA 07/09/2012 PRASAD PAVON, LACIE E 723.1 CERVICALGIA 07/09/2012 PRASAD PAVON, LACIE E 723.1 CERVICALGIA 07/09/2012 PRASAD PAVON, LACIE E 723.1 CERVICALGIA 08/07/2012 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 08/07/2012 300.21 AN PANIC DIS W AGORA 08/07/2012 ANITA MCINTOSH APRNNDA S 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 08/07/2012 ARNALDO BARRAZA, HENRY S 300.21 AN PANIC DIS W AGORA 08/07/2012 ARNALDO BARRAZA, HENRY S 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 08/07/2012 ARNALDO BARRAZA, HENRY S 300.21 AN PANIC DIS W AGORA 08/07/2012 ARNALDO BARRAZA HENRY S 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 08/07/2012 ARNALDO BARRAZA, HENRY S 300.21 AN PANIC DIS W AGORA 08/07/2012 JUSTIN ALSTON DO K 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 08/07/2012 PRASHANTH ALSTON DOA K 300.21 AN PANIC DIS W AGORA 08/07/2012 MCKINLEY CORE INSPECTOR, EVANGELINA A 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 08/07/2012 MCKINLEY CORE INSPECTOR, EVANGELINA A 300.21 AN PANIC DIS W AGORA 08/07/2012 KIMI HILARIO APRN 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 08/07/2012 KIMI HILARIO APRN 300.21 AN PANIC DIS W AGORA 08/07/2012 PRASHANTH ALSTON DOA K 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 08/07/2012 PRASHANTH ALSTON DOA K 300.21 AN PANIC DIS W AGORA 08/07/2012 PRASAD PAVON, LACIE E 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 08/07/2012 PRASAD PAVON, LACIE E 300.21 AN PANIC DIS W AGORA 08/07/2012 PRASAD PAVON, LACIE E 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 08/07/2012 PRASAD PAVON, LACIE E 300.21 AN PANIC DIS W AGORA 08/07/2012 PRASAD PAVON, LACIE E 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 08/07/2012 PRASAD PAVON, LACIE E 300.21 AN PANIC DIS W AGORA 08/07/2012 PRASAD PAVON, LACIE E 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 08/07/2012 PRASAD PAVON, LACIE E 300.21 AN PANIC DIS W AGORA 12/17/2012 HENRY MCINTOSH APRN S 244.9 HYPOTHYROIDISM 12/17/2012 HENRY MCINTOSH APRN S 244.9 HYPOTHYROIDISM 12/17/2012 HENRY MCINTOSH APRN S 244.9 HYPOTHYROIDISM 12/17/2012 JSUTIN ALSTON DO K 244.9 HYPOTHYROIDISM 12/17/2012 MCKINLEY BARRAZA, EVANGELINA A 244.9 HYPOTHYROIDISM 12/17/2012 KIMI HILARIO APRN 244.9 HYPOTHYROIDISM 12/17/2012 JUSTIN ALSTON DO K 244.9 HYPOTHYROIDISM 12/17/2012 PRASAD PAVON, LACIE E 244.9 HYPOTHYROIDISM 12/17/2012 PRASAD PAVON, LACIE E 244.9 HYPOTHYROIDISM 12/17/2012 PRASAD PAVON, LACIE E 244.9 HYPOTHYROIDISM 12/17/2012 PRASAD PAVON, LACIE E 244.9 HYPOTHYROIDISM 03/04/2013 HENRY MCINTOSH APRN S 719.46 PAIN IN JOINT INVOLVING LOWER LEG 03/04/2013 HENRY MCINTOSH APRN S V04.81 FLU SHOT 03/04/2013 JUSTIN ALSTON DO K 719.46 PAIN IN JOINT INVOLVING LOWER LEG 03/04/2013 JUSTIN ALSTON DO K V04.81 FLU SHOT 03/04/2013 MCKINLEY APRN, EVANGELINA A 719.46 PAIN IN JOINT INVOLVING LOWER LEG 03/04/2013 MCKINLEYYANG BARRAZA, EVANGELINA A V04.81 FLU SHOT 03/04/2013 KIMI HILARIO APRN 719.46 PAIN IN JOINT INVOLVING LOWER LEG 03/04/2013 KIMI HILARIO APRN V04.81 FLU SHOT 03/04/2013 JUSTIN ALSTON DO 719.46 PAIN IN JOINT INVOLVING LOWER LEG 03/04/2013 JUSTIN ALSTON DO V04.81 FLU SHOT 03/04/2013 PRASAD PAVON, LACIE De Souza 719.46 PAIN IN JOINT INVOLVING LOWER LEG 03/04/2013 PRASAD PAVON, LACIE De Souza V04.81 FLU SHOT 03/04/2013 LACIE PARHAM RN E 719.46 PAIN IN JOINT INVOLVING LOWER LEG 03/04/2013 LACIE PARHAM RN E V04.81 FLU SHOT 03/04/2013 LACIE PARHAM RN E 719.46 PAIN IN JOINT INVOLVING LOWER LEG 03/04/2013 LACIE PARHAM RN E V04.81 FLU SHOT 03/04/2013 LACIE PARHAM RN E 719.46 PAIN IN JOINT INVOLVING LOWER LEG 03/04/2013 LACIE PARHAM RN V04.81 FLU SHOT 04/08/2013 JUSTIN ALSTON DO K 338.29 OTHER CHRONIC PAIN 04/08/2013 JUSTIN ALSTON DO K 461.9 SINUSITIS ACUTE 04/08/2013 PRASHANTH ALSTON DOA K 496 COPD 04/08/2013 MCKINLEY BARRAZA, EVANGELINA A 338.29 OTHER CHRONIC PAIN 04/08/2013 IONA SEN APRNIDI A 461.9 SINUSITIS ACUTE 04/08/2013 MCKINLEY BARRAZA EVANGELINA A 496 COPD 04/08/2013 KIMI HILARIO APRN 338.29 OTHER CHRONIC PAIN 04/08/2013 KIMI HILARIO APRN 461.9 SINUSITIS ACUTE 04/08/2013 KIMI HILARIO APRN 496 COPD 04/08/2013 JUSTIN ALSTON DO K 338.29 OTHER CHRONIC PAIN 04/08/2013 JUSTIN ALSTON DO K 461.9 SINUSITIS ACUTE 04/08/2013 JUSTIN ALSTON DO K 496 COPD 04/08/2013 PRASAD PAVON, LACIE E 338.29 OTHER CHRONIC PAIN 04/08/2013 PRASAD PAVON, LACIE E 461.9 SINUSITIS ACUTE 04/08/2013 PRASAD RN, LACIE E 496 COPD 04/08/2013 PRASAD RN, LACIE E 338.29 OTHER CHRONIC PAIN 04/08/2013 PRASAD PAVON, LACIE E 461.9 SINUSITIS ACUTE 04/08/2013 PRASAD RN, LACIE E 496 COPD 04/08/2013 PRASAD PAVON, LACIE E 338.29 OTHER CHRONIC PAIN 04/08/2013 PRASAD PAVON, LACIE E 461.9 SINUSITIS ACUTE 04/08/2013 PRASAD PAVON, LACIE E 496 COPD 04/08/2013 PRASAD PAVON, LACIE E 338.29 OTHER CHRONIC PAIN 04/08/2013 PRASAD PAVON, LACIE E 461.9 SINUSITIS ACUTE 04/08/2013 PRASAD PAVON, LACIE E 496 COPD 05/07/2013 EVANGELINA SEN APRN 305.70 AMPHETA ABUSE 05/07/2013 KIMI HILARIO APRN 305.70 AMPHETA ABUSE 05/07/2013 JUSTIN ALSTON DO K 305.70 AMPHETA ABUSE 05/07/2013 PRASAD PAVON, LACIE E 305.70 AMPHETA ABUSE 05/07/2013 PRASAD PAVON, LACIE E 305.70 AMPHETA ABUSE 05/07/2013 PRASAD PAVON, LACIE E 305.70 AMPHETA ABUSE 05/07/2013 PRASAD PAVON, LACIE E 305.70 AMPHETA ABUSE 05/13/2013 EVANGELINA SEN APRN 278.00 OBESITY 05/13/2013 EVANGELINA SEN APRN 465.9 ACUTE UPPER RESPIRATORY INFECTIONS OF UNSPECIFIED SITE 05/13/2013 EVANGELINA SEN APRN V16.3 FAM HX CANCER, BREAST 05/13/2013 EVANGELINA SEN APRN V65.42 COUNSELING - SMOKING CESSATION 05/13/2013 EVANGELINA SEN APRN V76.10 BREAST CANCER SCREENING 05/13/2013 KIMI HILARIO APRN 278.00 OBESITY 05/13/2013 KIMI HILARIO APRN 465.9 ACUTE UPPER RESPIRATORY INFECTIONS OF UNSPECIFIED SITE 05/13/2013 KIMI HILARIO APRN V16.3 FAM HX CANCER, BREAST 05/13/2013 KIMI HILARIO APRN V65.42 COUNSELING - SMOKING CESSATION 05/13/2013 KIMI HILARIO APRN V76.10 BREAST CANCER SCREENING 05/13/2013 PRASHANTH ALSTON DOA K 278.00 OBESITY 05/13/2013 JUSTIN ALSTON DO K 465.9 ACUTE UPPER RESPIRATORY INFECTIONS OF UNSPECIFIED SITE 05/13/2013 PRASHANTH ALSTON DOA K V16.3 FAM HX CANCER, BREAST 05/13/2013 GAMALIEL MURGUIA JUSTIN K V65.42 COUNSELING - SMOKING CESSATION 05/13/2013 PRASHANTH ALSTON DOA K V76.10 BREAST CANCER SCREENING 05/13/2013 LACIE PARHAM RN 278.00 OBESITY 05/13/2013 LACIE PARHAM RN 465.9 ACUTE UPPER RESPIRATORY INFECTIONS OF UNSPECIFIED SITE 05/13/2013 LACIE PARHAM RN V16.3 FAM HX CANCER, BREAST 05/13/2013 LACIE PARHAM RN V65.42 COUNSELING - SMOKING CESSATION 05/13/2013 LACIE PARHAM RN V76.10 BREAST CANCER SCREENING 05/13/2013 LACIE PARHAM RN 278.00 OBESITY 05/13/2013 LACIE PARHAM RN 465.9 ACUTE UPPER RESPIRATORY INFECTIONS OF UNSPECIFIED SITE 05/13/2013 LACIE PARHAM RN V16.3 FAM HX CANCER, BREAST 05/13/2013 LACIE PARHAM RN V65.42 COUNSELING - SMOKING CESSATION 05/13/2013 LACIE PARHAM RN V76.10 BREAST CANCER SCREENING 05/13/2013 LACIE PARHAM RN 278.00 OBESITY 05/13/2013 LACIE PARHAM RN 465.9 ACUTE UPPER RESPIRATORY INFECTIONS OF UNSPECIFIED SITE 05/13/2013 LACIE PARHAM RN E V16.3 FAM HX CANCER, BREAST 05/13/2013 LACIE PARHAM RN V65.42 COUNSELING - SMOKING CESSATION 05/13/2013 LACIE PARHAM RN V76.10 BREAST CANCER SCREENING 05/13/2013 LACIE PARHAM RN 278.00 OBESITY 05/13/2013 LACIE PARHAM RN 465.9 ACUTE UPPER RESPIRATORY INFECTIONS OF UNSPECIFIED SITE 05/13/2013 LACIE PARHAM RN V16.3 FAM HX CANCER, BREAST 05/13/2013 LACIE PARHAM RN V65.42 COUNSELING - SMOKING CESSATION 05/13/2013 LACIE PARHAM RN V76.10 BREAST CANCER SCREENING 12/24/2013 JUSTIN ALSTON DO 296.80 BIPOLAR DISORDER UNSPECIFIED 12/24/2013 LACIE PARHAM RN 296.80 BIPOLAR DISORDER UNSPECIFIED 12/24/2013 LACIE PARHAM RN 296.80 BIPOLAR DISORDER UNSPECIFIED 12/24/2013 LACIE PARHAM RN 296.80 BIPOLAR DISORDER UNSPECIFIED 12/24/2013 LACIE PARHAM RN 296.80 BIPOLAR DISORDER UNSPECIFIED 12/27/2013 JUSTIN ALSTON DO 466.0 BRONCHITIS, ACUTE 12/27/2013 LACIE PARHAM RN 466.0 BRONCHITIS, ACUTE 12/27/2013 LACIE PARHAM RN 466.0 BRONCHITIS, ACUTE 12/27/2013 LACIE PARHAM RN 466.0 BRONCHITIS, ACUTE 12/27/2013 LACIE PARHAM RN 466.0 BRONCHITIS, ACUTE Procedures Code Description [place] [address] PSYCH DIAG INTER EXAM 02/17/2012 59946 ROUTINE VENIPUNCTURE 02/27/2012 50234 EKG, TRACING (IN-HOUSE) 02/27/2012 58900 GLUCOSE 02/27/2012 03396 LIPID PANEL 02/27/2012 66203 PSYCH DIAGNOSTIC EVALUATION 06/29/2012 50479 MRI SPINE (CERVICAL) W/O CONTRAST 07/10/2012 01911 ROUTINE VENIPUNCTURE 01/09/2013 16120 TSH 01/09/2013 92357 ROUTINE VENIPUNCTURE 02/25/2013 74175 TSH 02/25/2013 39816 URINE DRUG SCREEN (IN-HOUSE ) 03/04/2013 41018 URINE DRUG SCREEN (IN-HOUSE ) 05/07/2013 03645 URINE METH/AMPHETAMINE GC/ MS 05/13/2013 89272 MAMMOGRAM, SCREENING 05/13/2013 S0280 COMPREHENSIVE CARE MANAGEMENT 12/27/2013 S0281 CARE COORDINATION 12/27/2013 S0280 HEALTH PROMOTION 01/30/2014 S0281 CARE COORDINATION 02/04/2014 S0280 HEALTH PROMOTION 03/05/2014 S0280 HEALTH PROMOTION 04/24/2014 Results Test Result Range TSH+Free T4 - 08/31/16 11:44 TSH 3.510 uIU/mL 0.450-4.500 T4,Free(Direct) 0.93 ng/dL 0.82-1.77 CBC With Differential/Platelet - 08/31/16 11:44 WBC 7.8 x10E3/uL 3.4-10.8 RBC 4.99 x10E6/uL 3.77-5.28 Hemoglobin 15.3 g/dL 11.1-15.9 Hematocrit 45.8 % 34.0-46.6 MCV 92 fL 79-97 MCH 30.7 pg 26.6-33.0 MCHC 33.4 g/dL 31.5-35.7 RDW 12.8 % 12.3-15.4 Platelets 260 x10E3/uL 150-379 Neutrophils 57 % Lymphs 30 % Monocytes 11 % Eos 1 % Basos 1 % Neutrophils (Absolute) 4.5 x10E3/uL 1.4-7.0 Lymphs (Absolute) 2.3 x10E3/uL 0.7-3.1 Monocytes(Absolute) 0.9 x10E3/uL 0.1-0.9 Eos (Absolute) 0.0 x10E3/uL 0.0-0.4 Baso (Absolute) 0.0 x10E3/uL 0.0-0.2 Immature Granulocytes 0 % Immature Grans (Abs) 0.0 x10E3/uL 0.0-0.1 Comp. Metabolic Panel (14) - 08/31/16 11:44 Glucose, Serum 93 mg/dL 65-99 BUN 13 mg/dL 6-20 Creatinine, Serum 0.86 mg/dL 0.57-1.00 eGFR If NonAfricn Am 87 mL/min/1.73 >59 eGFR If Africn Am 100 mL/min/1.73 >59 BUN/Creatinine Ratio 15 9-23 Sodium, Serum 141 mmol/L 134-144 Potassium, Serum 4.0 mmol/L 3.5-5.2 Chloride, Serum 99 mmol/L 96-106 Carbon Dioxide, Total 23 mmol/L 18-29 Calcium, Serum 9.9 mg/dL 8.7-10.2 Protein, Total, Serum 7.6 g/dL 6.0-8.5 Albumin, Serum 4.7 g/dL 3.5-5.5 Globulin, Total 2.9 g/dL 1.5-4.5 A/G Ratio 1.6 1.2-2.2 Bilirubin, Total 1.0 mg/dL 0.0-1.2 Alkaline Phosphatase, S 120 IU/L 39-117 AST (SGOT) 18 IU/L 0-40 ALT (SGPT) 27 IU/L 0-32 Lipid Panel - 08/31/16 11:44 Cholesterol, Total 179 mg/dL 100-199 Triglycerides 75 mg/dL 0-149 HDL Cholesterol 46 mg/dL >39 VLDL Cholesterol Mehran 15 mg/dL 5-40 LDL Cholesterol Calc 118 mg/dL 0-99 Microalb/Creat Ratio, Randm Ur - 08/31/16 11:44 Creatinine, Urine 199.8 mg/dL Not Estab. Microalbumin, Urine 370.6 ug/mL Not Estab. Microalb/Creat Ratio 185.5 mg/g creat 0.0-30.0 Urine Culture, Routine - 08/31/16 11:44 Urine Culture, Routine Note LIVER PANEL (LFT) - 03/14/17 14:57 PROTEIN, TOTAL 6.8 g/dL 6.1-8.1 ALBUMIN 4.5 g/dL 3.6-5.1 GLOBULIN 2.3 g/dL (calc) 1.9-3.7 ALBUMIN/GLOBULIN RATIO 2.0 (calc) 1.0-2.5 BILIRUBIN, TOTAL 0.5 mg/dL 0.2-1.2 ALKALINE PHOSPHATASE 85 U/L 33-115 AST 25 U/L 10-30 ALT 32 U/L 6-29 BILIRUBIN, DIRECT 0.1 mg/dL < OR=0.2 BILIRUBIN, INDIRECT 0.4 mg/dL (calc) 0.2-1.2 CMP - 04/06/17 09:15 GLUCOSE 89 mg/dL 65-99 UREA NITROGEN (BUN) 14 mg/dL 7-25 CREATININE 0.76 mg/dL 0.50-1.10 eGFR NON-AFR. ZAMBIAN 100 mL/min/1.73m2 > OR=60 eGFR 115 mL/min/1.73m2 > OR=60 BUN/CREATININE RATIO NOT APPLICABLE (calc) 6-22 SODIUM 139 mmol/L 135-146 POTASSIUM 4.3 mmol/L 3.5-5.3 CHLORIDE 105 mmol/L 98-110 CARBON DIOXIDE 29 mmol/L 20-31 CALCIUM 8.9 mg/dL 8.6-10.2 PROTEIN, TOTAL 6.6 g/dL 6.1-8.1 ALBUMIN 4.1 g/dL 3.6-5.1 GLOBULIN 2.5 g/dL (calc) 1.9-3.7 ALBUMIN/GLOBULIN RATIO 1.6 (calc) 1.0-2.5 BILIRUBIN, TOTAL 0.5 mg/dL 0.2-1.2 ALKALINE PHOSPHATASE 94 U/L 33-115 AST 30 U/L 10-30 ALT 36 U/L 6-29 TSH - 05/29/17 09:09 TSH 4.53 mIU/L NRG Encounters ACCT No. Visit Date/Time Discharge Status Pt. Type Provider Facility Loc./Unit Complaint [id number] 04/14/2014 15:00:00 04/14/2014 23:59:59 CLS Outpatient LACIE PARHAM RN [id number] 02/13/2014 08:04:00 02/13/2014 23:59:59 CLS Outpatient LACIE PARHAM RN [id number] 02/04/2014 09:00:00 02/04/2014 23:59:59 CLS Outpatient LACIE PARHAM RN [id number] 01/22/2014 14:45:00 01/22/2014 23:59:59 CLS Outpatient LACIE PARHAM RN [id number] 12/27/2013 14:03:00 12/27/2013 23:59:59 CLS Outpatient JUSTIN ALSTON DO [id number] 05/13/2013 12:51:00 05/13/2013 23:59:59 CLS Outpatient EVANGELINA SEN APRN [id number] 05/07/2013 14:54:00 05/07/2013 23:59:59 CLS Outpatient KIMI HILARIO APRN [id number] 04/08/2013 12:50:00 04/08/2013 23:59:59 CLS Outpatient JUSTIN ALSTON DO [id number] 03/04/2013 12:59:00 03/04/2013 23:59:59 CLS Outpatient HENRY MCINTOSH APRN [id number] 01/09/2013 12:10:00 01/09/2013 23:59:59 CLS Outpatient HENRY MCINTOSH APRN Lu [id number] 12/17/2012 15:36:00 12/17/2012 23:59:59 CLS Outpatient HENRY MCINTOSH APRN Lu [id number] 07/09/2012 10:45:00 07/09/2012 23:59:59 CLS Outpatient HENRY MCINTOSH APRN Lu [id number] 06/26/2012 15:59:00 06/26/2012 23:59:59 CLS Outpatient [id number] 04/19/2012 09:11:00 04/19/2012 23:59:59 CLS Outpatient JUSTIN ALSTON DO [id number] 03/03/2012 10:15:00 03/03/2012 23:59:59 CLS Outpatient [id number] 02/16/2012 16:10:00 02/16/2012 23:59:59 CLS Outpatient HENRY MCINTOSH APRN Lu [id number] 08/07/2012 15:57:00 Document Registration [id number] 10/26/2017 15:40:00 10/26/2017 23:59:59 CLS Outpatient CORINNE BERGER APRN [facility] [id number] 05/29/2017 09:00:00 Document Registration [id number] 04/06/2017 09:00:00 Document Registration [id number] 03/14/2017 14:00:00 Document Registration [id number] 04/13/2016 08:28:00 04/13/2016 23:59:00 DIS Outpatient PONCHO RANDLE [id number] 09/01/2016 08:43:00 Document Registration [id number] 09/02/2016 19:07:00 Document Registration
[2017-12-24] MEDS ORDERED: SULF1TAB35 PO (03:05)
[2017-12-24] MEDS ORDERED: BACI3.5O6 OP (03:05)
[2017-12-24 03:11] VITALS: BP 124/88
== END 2017-12-24 03:11 | disposition home or self-care (01) ==
LOC: EDUNIT# 02:35 → ER 02:37
DX: J34.89 Other specified disorders of nose and nasal sinuses (principal); Z88.0 Allergy status to penicillin; Z88.6 Allergy status to analgesic agent; Z88.1 Allergy status to other antibiotic agents; Z88.8 Allergy status to other drugs, medicaments and biological substances; Z79.52 Long term (current) use of systemic steroids; Z87.59 Personal history of other complications of pregnancy, childbirth and the puerperium
CPT/HCPCS: 96372; 99283

== ENCOUNTER 2018-06-21 20:18 | Emergency (ER) | payer MEDICAID ==
[~2018-06-21] VITALS: Ht 157.5 cm; Wt 116.1 kg
[~2018-06-21 20:18] MED LIST changes: +BACI3.5O6 OP; +SULF1TAB35 PO
--- OUTSIDE RECORDS SUMMARY | 2018-06-21 20:24 | XMS REPORT ---
Author Author RONEN LUTZ Organization [facility] Address [address] [place] [address] Care Team Providers Care Civil Attorney Name Role Phone BOLIVARRONEN Unavailable PROBLEMS Type Condition ICD9-CM Code [id number] Code Onset Dates Condition Status SNOMED Code Problem COPD (chronic obstructive pulmonary disease) J44.9 Active 23010803 Problem Lumbago with sciatica, right side M54.41 Active 102761667958715 Problem Panic disorder with agoraphobia F40.01 Active 58866368 Problem Other chronic pain G89.29 Active 74589280 Problem Degenerative joint disease M19.90 Active 234527176 Problem Morbid (severe) obesity due to excess calories E66.01 Active 50198965568948 Problem Depressive disorder, not elsewhere classified F32.9 Active 96924047 Problem Body mass index (BMI) of 40.0-44.9 in adult Z68.41 Active 576175035 Problem Mood disorder F39 Active 40329978 Problem Nicotine withdrawal F17.203 Active 95725435 Problem Acquired hypothyroidism E03.9 Active 451932524 Problem Chronic pain G89.29 Active 94581436 Problem Bipolar disease, chronic F31.9 Active 61285288 Problem 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 Active 156779507284010 Problem Right sciatic nerve pain M54.31 Active 45364657 Problem Hypothyroidism (acquired) E03.9 Active 59084589 Problem Fibrocystic changes of left breast N60.12 Active 92074136 Problem Opioid use disorder, moderate, dependence F11.20 Active 14544552 Problem Xanax use disorder, moderate F13.20 Active 739850439 Problem Pre-diabetes R73.03 Active 034099185 Problem Cigarette nicotine dependence without complication F17.210 Active 72622630 Problem Personality disorder F60.9 Active 70458053 Problem Lumbago with sciatica, left side M54.42 Active 617409913 Problem Methamphetamine use disorder, severe, 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 Active 59370552 Problem Psychosis, unspecified psychosis type F29 Active 02835195 ALLERGIES Substance Reaction Event Type Date Status Tramadol HCl nausea and vomiting Drug Allergy Mar, Active Penicillin V Potassium anaphylaxis Drug Allergy Mar, Active Naproxen swelling Drug Allergy Mar, Active Keflex anaphylaxis Drug Allergy Mar, Active Ibuprofen nausea and vomitting Drug Allergy Mar, Active Aspirin hives Drug Allergy Mar, Active ENCOUNTERS Encounter Location Date Diagnosis [facility] [address] [address] Jun, [facility] [address] [address]- [address] Apr, [place] [address] [address] Apr, [facility] [place] [address] [address] Mar, [facility] [address] [address] Mar, BMI 45.0-49.9, adult Z68.42 ; Right-sided chest wall pain R07.89 and Cough R05 [place] [address] [place] [id number] [place] [address] 92340- 1880 Mar, [facility] [place] [id number] [place] [address] 86644- 0984 Mar, Methamphetamine use disorder, severe, 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 ; Psychosis, unspecified psychosis type F29 ; Xanax use disorder, moderate F13.20 ; Personality disorder F60.9 ; Opioid use disorder, moderate, dependence F11.20 and BMI 45.0-49.9, adult Z68.42 [facility] [id number] [place] [address] 86650- 4879 Mar, Acquired hypothyroidism E03.9 [facility] [place] [address] [address]- [address] Mar, Bronchitis J40 ; Costochondritis M94.0 ; Hypothyroidism ( acquired) E03.9 ; Pre-diabetes R73.03 ; Acquired hypothyroidism E03.9 and BMI 45.0-49.9, adult Z68.42 [place] [address] [place] [address] 79648- 1719 Feb, Lumbago with sciatica, right side M54.41 [place] [address] [place] [place] [id number] [place] [address] 54213- 1748 Feb, Acquired hypothyroidism E03.9 [place] [id number] [place] [address] 37700- 6201 Feb, Liver enzyme elevation R74.8 [place] [id number] [place] [address] 12005- 7306 Feb, Mood disorder F39 ; Nicotine withdrawal F17.203 ; Liver enzyme elevation R74.8 ; Hypothyroidism (acquired) E03.9 and BMI 45.0-49.9, adult Z68.42 [place] [address] [place] [id number] [place] [address] 56845- 0634 Jan, Methamphetamine use disorder, severe, 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 ; Psychosis, unspecified psychosis type F29 ; Personality disorder F60.9 ; Opioid use disorder, moderate, dependence F11.20 ; Xanax use disorder, moderate F13.20 and BMI 45.0-49.9, adult Z68.42 [place] [address] [place] [address] 75557- 7185 Jan, Liver enzyme elevation R74.8 and Hypothyroidism (acquired) E03.9 [place] [address] [id number] [place] [address] 15130- 5200 Dec, BMI 40.0-44.9, adult Z68.41 ; Chronic pain G89.29 ; Degenerative joint disease M19.90 and Pre-diabetes R73.[address] [place] [address] 04027- 3220 Dec, [place] [id number] [place] [address] 01848- 8182 Dec, Methamphetamine use disorder, severe, 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 ; Psychosis, unspecified psychosis type F29 ; Personality disorder F60.9 ; Opioid use disorder, moderate, dependence F11.20 ; Xanax use disorder, moderate F13.20 and BMI 45.0-49.9, adult Z68.42 [place] [id number] [place] [address] 40639- 2184 Dec, [place] [id number] [place] [address] 96259- 5344 Oct, Breast pain N64.4 ; Fibrocystic changes of left breast N60.12 and Bilateral otitis media with effusion H65.93 [facility] [id number] [place] [address]380 -[address]39 Sep, 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 [place] [id number] [place] [address] 17029- 3346 Sep, [place] [id number] [place] [address] 89908- 3788 Sep, Methamphetamine use disorder, severe, 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 ; Psychosis, unspecified psychosis type F29 ; Personality disorder F60.9 ; Opioid use disorder, moderate, dependence F11.20 ; Xanax use disorder, moderate F13.20 and BMI 40.0-44.9, adult Z68.41 [place] [address] [place] [address] 60367- 2037 Sep, Depressive disorder, not elsewhere classified F32.9 and Psychosis, unspecified psychosis type F29 [place] [id number] [place] [address] 89300- 0279 August, [address] [place] [address] 95728- 1286 August, Depressive disorder, not elsewhere classified F32.9 and Psychosis, unspecified psychosis type F29 [place] [id number] [place] [address] 05955- 0685 August, [facility] [id number] [place] [address] 57034- 2798 August, Lumbago with sciatica, right side M54.41 and Other chronic pain G89.29 [facility] [id number] [place] [address] 80655 -5413 Jul, Right sciatic nerve pain M54.31 [facility] [place] [id number] [place] [address] 16934- 0050 Jul, Acquired hypothyroidism E03.9 [place] [address] 55207- 4748 Jul, Depressive disorder, not elsewhere classified F32.9 and Psychosis, unspecified psychosis type F29 [place] [id number] [place] [address] 44439- 2376 Jul, Acquired hypothyroidism E03.9 ; Lumbago with sciatica, right side M54.41 and Lumbar radiculopathy, acute M54.16 [place] [id number] [place] [address] 88019- 4384 Jul, Methamphetamine use disorder, severe, 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 ; Psychosis, unspecified psychosis type F29 ; Personality disorder F60.9 ; Opioid use disorder, moderate, dependence F11.20 ; Xanax use disorder, moderate F13.20 and BMI 40.0-44.9, adult Z68.41 [facility] [address] [place] [address] 85407- 5381 Jun, Methamphetamine use disorder, severe, 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 ; Psychosis, unspecified psychosis type F29 ; Personality disorder F60.9 ; Opioid use disorder, moderate, dependence F11.20 and Xanax use disorder, moderate F13.20 [place] [address] [place] [address] 81363- 8177 Jun, Depressive disorder, not elsewhere classified F32.9 and Psychosis, unspecified psychosis type F29 [place] [address] [place] [address] 79318- 1801 Jun, Lumbar radiculopathy, acute M54.16 [place] [id number] [place] [address] 27168- 4608 Jun, Lumbar radiculopathy, acute M54.16 ; Strain of abdominal wall, initial encounter S39.011A and BMI 40.0-44.9, adult Z68.41 [place] [id number] [place] [address] 78854- 3461 Jun, [place] [id number] [place] [address] 16999- 2656 May, [place] [address] [place] [address] [id number] [place] [address] 36135- 0098 May, Methamphetamine use disorder, severe, 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 ; Psychosis, unspecified psychosis type F29 ; Personality disorder F60.9 ; Opioid use disorder, moderate, dependence F11.20 and Xanax use disorder, moderate F13.20 [place] [address] [place] [place] [id number] [place] [address] 03987- 5527 May, [place] [address] [place] [id number] [place] [address] 36912- 3681 May, [place] [id number] [place] [address] 55062- 5699 May, Lumbago with sciatica, left side M54.42 ; Lumbago with sciatica, right side M54.41 ; Other chronic pain G89.29 ; Weight gain R63.5 ; Acquired hypothyroidism E03.9 and BMI 40.0-44.9, adult Z68.41 [place] [address] [place] [address] 01736- 1721 Apr, Cigarette nicotine dependence without complication F17.210 [place] [address] 97329- 9367 Apr, Acute bilateral low back pain without sciatica M54.5 [place] [address] [place] [id number] [place] [address] 37711- 2367 Apr, Methamphetamine use disorder, severe, 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 ; Psychosis, unspecified psychosis type F29 ; Personality disorder F60.9 ; Opioid use disorder, moderate, dependence F11.20 and Xanax use disorder, moderate F13.20 [facility] [address] [address]66 -2579 Apr, Wheezing R06.2 and Bronchitis J40 [place] [address] 65329- 1864 Apr, Bronchitis J40 ; Cigarette nicotine dependence without complication F17.210 and Bipolar disease, chronic F31.9 [place] [address] 65130- 2640 Mar, Acquired hypothyroidism E03.9 [place] [address] 60997- 1867 Mar, Acquired hypothyroidism E03.9 [place] [address] 95856- 2294 Mar, Orthostatic hypotension I95.1 and Non-intractable vomiting with nausea, unspecified vomiting type R11.2 [place] [address] 61737- 8178 Mar, Strain of lumbar region, initial encounter S39.012A [place] [address] [place] [id number] [place] [address] 12820- 8070 Mar, [facility] [address] 82771 -0395 Mar, Bronchitis J40 [place] [address] 07998- 7389 05 Mar, 2017 Degenerative joint disease M19.90 ; Elevated LFTs R79.89 ; Adenopathy R59.1 ; Drug use F19.90 ; Pre-diabetes R73.03 and COPD (chronic obstructive pulmonary disease) J44.9 [facility] [address] 86943 -5831 30 Feb, 2017 Left hand pain M79.642 and Contusion of left hand, initial encounter S60.222A [place] [address] 12706- 0629 07 Feb, 2017 Body aches R52 and Flu-like symptoms R68.89 [place] [address] 37809- 1994 Jan, [place] [address] 01739- 0541 Jan, Bipolar disease, chronic F31.9 ; Acquired hypothyroidism E03.9 and Encounter for immunization Z23 [facility] [address] 90[address] -0454 05 Dec, 2016 Crushing injury of left wrist and hand, initial encounter S67.42XA [place] [address] 28400- 0273 Sep, [place] [address] 10513- 4917 Sep, Bipolar disease, chronic F31.9 ; Panic disorder with agoraphobia F40.01 and Proteinuria, unspecified type R80.9 [place] [address] [place] [id number] [place] [address] 31408- 9572 August, [place] [address] 89884- 9392 August, Degenerative joint disease M19.90 ; Left-sided chest wall pain R07.89 ; Bipolar disease, chronic F31.9 ; Type 2 diabetes mellitus without complication, without long-term current use of insulin E11.9 ; Acquired hypothyroidism E03.9 and Acute cystitis without hematuria N30.00 [place] [address] [place] [address]- 0494 Mar, [facility] [address] [place] [address] 01204- 9756 Feb, [facility] [id number] [place] [address] 16763 -6902 Feb, Right hand pain M79.641 [facility] [id number] [place] [address] 33273 -7399 Feb, Bronchitis J40 ; Acute non-recurrent pansinusitis J01.40 and Seasonal allergic rhinitis due to other allergic trigger J30.89 [facility] [place] [id number] [place] [address] 17575- 7806 Dec, [facility] [id number] [place] [address] 01386 -9155 Mar, Left-sided chest wall pain R07.89 and Chronic pain G89.29 [facility] [id number] [place] [address] 72317- 4597 Jul, [facility] [place] [id number] [place] [address] 75137- 6445 Jul, [facility] [id number] [place] [address] 65615- 4776 May, [facility] [address] [place] [address] 28943- 1869 May, [facility] [id number] [place] [address] 01151- 6333 Apr, [facility] [place] [address] [place] [address] 20270- 3829 Apr, [facility] [place] [id number] [place] [address] 05341- 5287 Mar, [facility] [place] [address] [address]- 2618 Mar, [facility] [address] [place] [id number] [place] [address]- 6655 Feb, [facility] [place] [facility] [address] [id number] [place] [address]- 8067 Feb, [facility] [place] [facility] [address] [id number] [place] [address]- 8211 28 Jan, 2014 [facility] [place] [facility] [address] [id number] [place] [address]- 3940 28 Jan, 2014 [facility] [place] [facility] [address] [id number] [place] [address]- 5221 28 Jan, 2014 [facility] [place] [facility] [address] [id number] [place] [address]- 4448 28 Jan, 2014 [facility] [place] [facility] [address] [id number] [place] [address]- 3516 15 Jan, 2014 [facility] [place] [facility] [address] [id number] [place] [address]- 8579 15 Jan, 2014 [facility] [place] [facility] [address] [id number] [place] [address]- 8446 19 Dec, 2013 [facility] [place] [facility] [address] [id number] [place] [address]- 1799 19 Dec, 2013 [facility] [place] [facility] [address] [id number] [place] [address]- 5321 19 Dec, 2013 [facility] [place] [facility] [address] [id number] [place] [address]- 2545 19 Sep, 2013 [facility] [place] [facility] [address] [id number] [place] [address]- 2544 18 Sep, 2013 [facility] [place] [facility] [address] [id number] [place] [address]- 2547 18 Sep, 2013 [facility] [place] [facility] [address] [id number] [place] [address]- 2543 16 Sep, 2013 [facility] [place] [facility] [address] [id number] [place] [address]- 2545 16 Dec, 2013 [facility] [place] [facility] [address] [id number] [place] [address]- 7924 Sep, [facility] [place] [facility] [address] [id number] [place] [address]- 0046 Sep, [facility] [place] [facility] [address] [id number] [place] [address]- 1840 Jul, [facility] [place] [facility] [address] [id number] [place] [address]- 2697 Jul, [facility] [place] [facility] [address] [id number] [place] [address]- 8246 Jul, [facility] [place] [facility] [address] [id number] [place] [address]- 0075 Jul, [facility] [place] [facility] [address] [id number] [place] [address]- 4105 Jul, [facility] [place] [facility] [address] [id number] [place] [address]- 9067 Jul, [facility] [place] [facility] [address] [id number] [place] [address]- 0993 Jul, [facility] [place] [facility] [address] [id number] [place] [address]- 0912 Jul, [facility] [place] [facility] [address] [id number] [place] [address]- 9291 Jun, [facility] [place] [facility] [address] [id number] [place] [address]- 6147 Jun, [facility] [place] [facility] [address] [id number] [place] [address]- 6966 May, [facility] [place] [facility] [address] [id number] [place] [address]- 1878 May, [facility] [place] [facility] [address] [id number] [place] [address]- 5616 May, [facility] [place] [facility] [address] [id number] [place] [address]- 3648 May, [facility] [address] [id number] [place] [address]- 7804 Apr, [facility] [place] [facility] [address] [id number] [place] [address]- 4253 Apr, [facility] [address] [id number] [place] [address]- 6575 Mar, [facility] [place] [facility] [address] [id number] [place] [address]- 5221 Mar, [facility] [place] [facility] [address] [id number] [place] [address]- 1441 Feb, [facility] [place] [facility] [address] [id number] [place] [address]- 0731 Feb, [facility] [place] [facility] [address] [id number] [place] [address]- 0254 Feb, [facility] [place] [facility] [address] [id number] [place] [address]- 3610 Feb, [facility] [place] [facility] [address] [id number] [place] [address]- 5030 Jan, [facility] [place] [facility] [address] [facility] [id number] [place] [address]- 1745 Jan, [facility] [place] [facility] [address] [id number] [place] [address]- 4573 Jan, [facility] [place] [facility] [address] [id number] [place] [address]- 2548 Jan, [facility] [place] [facility] [address] [id number] [place] [address]- 0156 Jan, [facility] [place] [facility] [address] [id number] [place] [address]- 0351 Dec, [facility] [place] [facility] [address] [id number] [place] [address]- 0416 Dec, [facility] [place] [facility] [address] [id number] [place] [address]- 5439 Nov, [facility] [address] [id number] [place] [address]- 2185 Sep, [facility] [address] [id number] [place] [address]- 1895 August, [facility] [address] [id number] [place] [address]- 7927 August, [facility] [address] [id number] [place] [address]- 7694 Jul, [facility] [address] [id number] [place] [address]- 7619 Jul, [facility] [address] [id number] [place] [address]- 0070 Jul, [facility] [address] [id number] [place] [address]- 0278 Jul, [facility] [address] [id number] [place] [address]- 9525 Jul, [facility] [address] [id number] [place] [address]- 1181 Jul, [facility] [address] [id number] [place] [address]- 4991 Jul, [facility] [address] [id number] [place] [address]- 9710 Jun, [facility] [address] [id number] [place] [address]- 7377 Jun, [facility] [place] [facility] [address] [id number] [place] [address]- 8668 May, [facility] [address] [id number] [place] [address]- 3536 Apr, [facility] [address] [id number] [place] [address]- 3318 Apr, [facility] [place] [facility] [address] [id number] [place] [address]- [address] Mar, [facility] [place] [facility] [address] [id number] [place] [address] Mar, [facility] [place] [facility] [address] [id number] [place] [address] Mar, [facility] [place] [facility] [address] [id number] [place] [address] Feb, [facility] [place] [facility] [address] [id number] [place] [address] Feb, [facility] [place] [facility] [address] [id number] [place] [address] Feb, [facility] [place] [facility] [address] [id number] [place] [address] Feb, [facility] [place] [facility] [address] [id number] [place] [address] Feb, [facility] [place] [facility] [address] [id number] [place] [address] Feb, [facility] [place] [facility] [address] [id number] [place] [address] 16 Feb, 2012 [facility] [place] [facility] [address] [id number] [place] [address] 16 Feb, 2012 [facility] [place] [facility] [address] [id number] [place] [address] 14 Feb, 2012 [facility] [place] [facility] [address] [id number] [place] [address] Feb, [facility] [place] [facility] [address] [id number] [place] [address] 08 Feb, 2012 [facility] [place] [facility] [address] [id number] [place] [address] 27 Dec, 2011 [facility] [place] [facility] [address] [id number] [place] [address]- [address] Dec, [facility] [place] [facility] [address] [id number] [place] [address] Nov, [facility] [place] [facility] [address] [id number] [place] [address] Nov, [facility] [place] [facility] [address] [id number] [place] [address] Oct, [facility] [place] [facility] [address] [id number] [place] [address] Oct, [facility] [place] [facility] [address] [id number] [place] [address] Sep, [facility] [place] [facility] [address] [id number] [place] [address] May, [facility] [place] [facility] [address] [id number] [place] [address] May, [facility] [place] [facility] [address] [id number] [place] [address] May, [facility] [place] [facility] [address] [id number] [place] [address] Apr, [facility] [place] [facility] [address] [facility] [id number] [place] [address]- [address] Mar, [facility] [place] [facility] [address] [id number] [place] [address]- [address] Mar, [facility] [place] [facility] [address] [id number] [place] [address]- [address] Feb, [facility] [place] [facility] [address] [id number] [place] [address]- [address] Feb, [facility] [place] [facility] [address] [id number] [place] [address]- [address] Feb, [facility] [place] [facility] [address] [id number] [place] [address] 14 Jan, 2011 [facility] [place] [address] [id number] [place] [address] 14 Jan, 2011 [facility] [place] [id number] [place] [address] Dec, 2010 [facility] [place] [address] [place] [address] Mar, [facility] [place] [address] [place] [address] Feb, [facility] [place] [address] [place] [address] Feb, [facility] [place] [id number] [place] [address] Feb, [facility] [place] [address] [place] [address] Jan, [facility] [place] [id number] [place] [address] Dec, [facility] [place] [id number] [place] [address] Nov, [facility] [place] [id number] [place] [address] Sep, [facility] [place] [id number] [place] [address] August, [facility] [place] [id number] [place] [address] May, [facility] [place] [id number] [place] [address] Mar, IMMUNIZATIONS No Known Immunizations SOCIAL HISTORY Never Assessed REASON FOR VISIT rib pain-the patient was seen on the and was diagnosed with pneumonia and a pulled muscle on the right side of the ribs. 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 Pt was sent over by PCP's nurse to get an x-ray._ _ELO Glez PLAN OF CARE Activity Details Follow Up prn Reason: VITAL SIGNS Height 63 in 2018-03-30 Weight 264 lbs 2018-03-30 Temperature 97.8 degrees Fahrenheit 2018-03-30 Heart Rate 80 bpm 2018-03-30 Respiratory Rate 20 2018-03-30 BMI 46.76 kg/m2 2018-03-30 Blood pressure systolic 106 mmHg 2018-03-30 Blood pressure diastolic 68 mmHg 2018-03-30 MEDICATIONS Medication Instructions Dosage Frequency Start Date End Date Duration Status Seroquel 300 mg Orally Once a day 1 tablet 24h 30 days Active HydrOXYzine Pamoate 100 MG Orally TID prn 1 capsule Active Diclofenac Sodium 75 MG Orally Twice a day 1 tablet with food or milk 12h August, 30 day(s) Active Tessalon Perles 100 mg Orally Three times a day 1 capsule as needed 8h Mar, 10 days Active Synthroid 125 MCG Orally Once a day 1 tablet on an empty stomach in the morning 24h August, Active Cyclobenzaprine HCl 10 mg Orally 2 times a day 1 tablet as needed 12h Dec, Active Active Nabumetone 500 mg Orally Twice a day 1 tablet 12h Dec, Mar, 30 day(s) Active ProAir HFA 108 (90 Base) MCG/ACT Inhalation every 6 hrs 2 puffs as needed 6h Mar, Active RESULTS No Results PROCEDURES Procedure Date Ordered Result Body Site X-RAY EXAM CHEST 2 VIEWS Mar 30, 2018 INSTRUCTIONS MEDICATIONS ADMINISTERED No Known Medications MEDICAL [...] harming, suicide ideat and attempts. [facility] [place] last around 2006 Hospitalization History left foot swollen, stepped in [facility] 05/02/17
--- OUTSIDE RECORDS SUMMARY | 2018-06-21 20:24 | XMS REPORT ---
Author Author MARCIAL RECINOS Organization [facility] Address [address] [place] [address] Care Team Providers Care Cotton Header Name Role Phone MARCIAL RECINOS Unavailable PROBLEMS Type Condition ICD9-CM Code CJX49-CO Code Onset Dates Condition Status SNOMED Code Problem COPD (chronic obstructive pulmonary disease) J44.9 Active 93953247 Problem Lumbago with sciatica, right side M54.41 Active [id number] Problem Panic disorder with agoraphobia F40.01 Active 80310451 Problem Other chronic pain G89.29 Active 10307479 Problem Degenerative joint disease M19.90 Active 570198338 Problem Morbid (severe) obesity due to excess calories E66.01 Active 40478921979598 Problem Depressive disorder, not elsewhere classified F32.9 Active 23410105 Problem Body mass index (BMI) of 40.0-44.9 in adult Z68.41 Active 559559217 Problem Mood disorder F39 Active 51013277 Problem Nicotine withdrawal F17.203 Active 80800107 Problem Acquired hypothyroidism E03.9 Active 950398623 Problem Chronic pain G89.29 Active 52432040 Problem Bipolar disease, chronic F31.9 Active 81637792 Problem 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 Active 646841850667503 Problem Right sciatic nerve pain M54.31 Active 18492967 Problem Hypothyroidism (acquired) E03.9 Active 57171737 Problem Fibrocystic changes of left breast N60.12 Active 05917644 Problem Opioid use disorder, moderate, dependence F11.20 Active 87785503 Problem Xanax use disorder, moderate F13.20 Active 775104383 Problem Pre-diabetes R73.03 Active 270581456 Problem Cigarette nicotine dependence without complication F17.210 Active 53454366 Problem Personality disorder F60.9 Active 72467355 Problem Lumbago with sciatica, left side M54.42 Active 774086574 Problem Methamphetamine use disorder, severe, 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 Active 83119314 Problem Psychosis, unspecified psychosis type F29 Active 28180040 ALLERGIES No Information ENCOUNTERS Encounter Location Date Diagnosis [place] [address] [address]21 Jun, [place] [address] [place] [id number] [place] [address] 66042- 4185 Apr, [place] [address] 56665- 8564 Apr, [place] [address] 04169- 2969 Mar, [place] [address] 71592- 1427 Mar, [place] [address] 13923- 8569 Mar, Methamphetamine use disorder, severe, 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 ; Psychosis, unspecified psychosis type F29 ; Xanax use disorder, moderate F13.20 ; Personality disorder F60.9 ; Opioid use disorder, moderate, dependence F11.20 and BMI 45.0-49.9, adult Z68.42 [place] [address] 14799- 1856 07 Mar, 2018 Acquired hypothyroidism E03.9 [place] [id number] [place] [address] 51348- 4834 06 Mar, 2018 Bronchitis J40 ; Costochondritis M94.0 ; Hypothyroidism ( acquired) E03.9 ; Pre-diabetes R73.03 ; Acquired hypothyroidism E03.9 and BMI 45.0-49.9, adult Z68.42 [place] [address] 27826- 4910 12 Feb, 2018 Lumbago with sciatica, right side M54.41 [place] [address] [place] [id number] [place] [address] 15969- 7507 Feb, Acquired hypothyroidism E03.9 [place] [address] [place] [id number] [place] [address] 63295- 8504 Feb, Liver enzyme elevation R74.8 [place] [address] [place] [id number] [place] [address] 86037- 2633 Feb, Mood disorder F39 ; Nicotine withdrawal F17.203 ; Liver enzyme elevation R74.8 ; Hypothyroidism (acquired) E03.9 and BMI 45.0-49.9, adult Z68.42 [place] [address] 16604- 5069 Jan, Methamphetamine use disorder, severe, 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 ; Psychosis, unspecified psychosis type F29 ; Personality disorder F60.9 ; Opioid use disorder, moderate, dependence F11.20 ; Xanax use disorder, moderate F13.20 and BMI 45.0-49.9, adult Z68.42 [place] [address] [place] [id number] [place] [address] 36660- 0487 Jan, Liver enzyme elevation R74.8 and Hypothyroidism (acquired) E03.9 [place] [address] [place] [id number] [place] [address] 73561- 7514 27 Dec, 2017 BMI 40.0-44.9, adult Z68.41 ; Chronic pain G89.29 ; Degenerative joint disease M19.90 and Pre-diabetes R73.03 [place] [id number] [place] [address] 35923- 1570 Dec, [place] [address] [place] [id number] [place] [address] 09640- 5208 Dec, Methamphetamine use disorder, severe, 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 ; Psychosis, unspecified psychosis type F29 ; Personality disorder F60.9 ; Opioid use disorder, moderate, dependence F11.20 ; Xanax use disorder, moderate F13.20 and BMI 45.0-49.9, adult Z68.42 [place] [id number] [place] [address] 07794- 8466 Dec, [place] [id number] [place] [address] 83844- 8030 Oct, Breast pain N64.4 ; Fibrocystic changes of left breast N60.12 and Bilateral otitis media with effusion H65.93 [facility] [address] [place] [id number] [place] [address] 48527 -4266 Sep, 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 [place] [address] [place] [id number] [place] [address] 51788- 1339 Sep, [place] [address] [place] [id number] [place] [address] 36999- 7166 Sep, Methamphetamine use disorder, severe, 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 ; Psychosis, unspecified psychosis type F29 ; Personality disorder F60.9 ; Opioid use disorder, moderate, dependence F11.20 ; Xanax use disorder, moderate F13.20 and BMI 40.0-44.9, adult Z68.41 [place] [address] [place] [id number] [place] [address] 82803- 6865 Sep, Depressive disorder, not elsewhere classified F32.9 and Psychosis, unspecified psychosis type F29 [place] [address] [place] [id number] [place] [address] 88870- 5191 August, [place] [address] [place] [id number] [place] [address] 32641- 2201 August, Depressive disorder, not elsewhere classified F32.9 and Psychosis, unspecified psychosis type F29 [place] [address] [place] [id number] [place] [address] 85257- 9240 August, [place] [address] [place] [id number] [place] [address] 53899- 9512 August, Lumbago with sciatica, right side M54.41 and Other chronic pain G89.29 [facility] [address] [place] [id number] [place] [address] 72430 -6519 Jul, Right sciatic nerve pain M54.31 [place] [address] [place] [id number] [place] [address] 03209- 7519 Jul, Acquired hypothyroidism E03.9 [place] [address] [place] [address] 65343- 0932 Jul, Depressive disorder, not elsewhere classified F32.9 and Psychosis, unspecified psychosis type F29 [place] [address] [address]- 2982 Jul, Acquired hypothyroidism E03.9 ; Lumbago with sciatica, right side M54.41 and Lumbar radiculopathy, acute M54.16 [place] [address] [address]- 0283 Jul, Methamphetamine use disorder, severe, 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 ; Psychosis, unspecified psychosis type F29 ; Personality disorder F60.9 ; Opioid use disorder, moderate, dependence F11.20 ; Xanax use disorder, moderate F13.20 and BMI 40.0-44.9, adult Z68.41 [place] [address] [address]- 8973 Jun, Methamphetamine use disorder, severe, 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 ; Psychosis, unspecified psychosis type F29 ; Personality disorder F60.9 ; Opioid use disorder, moderate, dependence F11.20 and Xanax use disorder, moderate F13.20 [place] [address] [address]- 0389 Jun, Depressive disorder, not elsewhere classified F32.9 and Psychosis, unspecified psychosis type F29 [place] [address] [address]- 0718 Jun, Lumbar radiculopathy, acute M54.16 [place] [address] [address]- 7880 Jun, Lumbar radiculopathy, acute M54.16 ; Strain of abdominal wall, initial encounter S39.011A and BMI 40.0-44.9, adult Z68.41 [place] [address] [place] [id number] [place] [address] 31176- 0545 Jun, [place] [address] [place] [id number] [place] [address] 04385- 8061 May, [place] [address] [place] [id number] [place] [address] 44804- 3463 May, Methamphetamine use disorder, severe, 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 ; Psychosis, unspecified psychosis type F29 ; Personality disorder F60.9 ; Opioid use disorder, moderate, dependence F11.20 and Xanax use disorder, moderate F13.20 [place] [address] [place] [id number] [place] [address] 34864- 6493 May, [place] [address] 72272- 5589 May, [place] [address] 17143- 4173 May, Lumbago with sciatica, left side M54.42 ; Lumbago with sciatica, right side M54.41 ; Other chronic pain G89.29 ; Weight gain R63.5 ; Acquired hypothyroidism E03.9 and BMI 40.0-44.9, adult Z68.41 [place] [address] [place] [id number] [place] [address] 50330- 6171 Apr, Cigarette nicotine dependence without complication F17.210 [place] [address] [place] [id number] [place] [address] 63256- 5310 Apr, Acute bilateral low back pain without sciatica M54.5 [place] [address] [place] [id number] [place] [address] 64337- 0791 Apr, Methamphetamine use disorder, severe, 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 ; Psychosis, unspecified psychosis type F29 ; Personality disorder F60.9 ; Opioid use disorder, moderate, dependence F11.20 and Xanax use disorder, moderate F13.20 [facility] [address] [place] [id number] [place] [address] 75901 -2156 Apr, Wheezing R06.2 and Bronchitis J40 [place] [address] 32822- 9680 02 Apr, 2017 Bronchitis J40 ; Cigarette nicotine dependence without complication F17.210 and Bipolar disease, chronic F31.9 [place] [address] 91442- 1008 Mar, Acquired hypothyroidism E03.9 [place] [address] 58314- 6716 Mar, Acquired hypothyroidism E03.9 [place] [address] 75893- 9606 Mar, Orthostatic hypotension I95.1 and Non-intractable vomiting with nausea, unspecified vomiting type R11.[address] 77047- 4953 Mar, Strain of lumbar region, initial encounter S39.012A [place] [address] 66637- 2877 Mar, [facility] [address] [place] [address] 11209 -4738 Mar, Bronchitis J40 [place] [address] 42876- 2542 05 Mar, 2017 Degenerative joint disease M19.90 ; Elevated LFTs R79.89 ; Adenopathy R59.1 ; Drug use F19.90 ; Pre-diabetes R73.03 and COPD (chronic obstructive pulmonary disease) J44.9 [facility] [address] [place] [id number] [place] [address] 82617 -1153 30 Feb, 2017 Left hand pain M79.642 and Contusion of left hand, initial encounter S60.222A [place] [address] 34657- 8613 07 Feb, 2017 Body aches R52 and Flu-like symptoms R68.89 [place] [address] [place] [id number] [place] [address] 70840- 1139 Jan, [place] [address] 22410- 8536 Jan, Bipolar disease, chronic F31.9 ; Acquired hypothyroidism E03.9 and Encounter for immunization Z23 [facility] [place] [id number] [place] [address] 04895 -5279 05 Dec, 2016 Crushing injury of left wrist and hand, initial encounter S67.42XA [place] [address] 69899- 7639 Sep, [address] 22788- 4231 Sep, Bipolar disease, chronic F31.9 ; Panic disorder with agoraphobia F40.01 and Proteinuria, unspecified type R80.[address] 02387- 3399 August, [place] [address] 22637- 3794 August, Degenerative joint disease M19.90 ; Left-sided chest wall pain R07.89 ; Bipolar disease, chronic F31.9 ; Type 2 diabetes mellitus without complication, without long-term current use of insulin E11.9 ; Acquired hypothyroidism E03.9 and Acute cystitis without hematuria N30.00 [place] [address] [place] [id number] [place] [address] 74479- 4829 Mar, [place] [address] [place] [id number] [place] [address] 32192- 1282 Feb, [facility] [address] 87393 -4615 Feb, Right hand pain M79.641 [facility] [place] [id number] [place] [address] 28009 -2944 Feb, Bronchitis J40 ; Acute non-recurrent pansinusitis J01.40 and Seasonal allergic rhinitis due to other allergic trigger J30.89 [facility] [address] [address]- 1055 29 Dec, 2015 [facility] [address] [address] -2275 Mar, Left-sided chest wall pain R07.89 and Chronic pain G89.29 [facility] [address] [place] [id number] [place] [address] 72338- 3116 Jul, [facility] [id number] [place] [address] 55129- 5006 Jul, [facility] [address] [place] [id number] [place] [address] 41052- 5245 May, [facility] [address] [place] [id number] [place] [address] 90654- 9405 May, [facility] [address] [place] [id number] [place] [address] 07410- 5232 Apr, [facility] [id number] [place] [address] 65588- 6576 Apr, [facility] [id number] [place] [address] 33477- 5290 Mar, [facility] [address], [place] [address]- 2130 Mar, [facility] [address], [place] [address]- 3867 Feb, [facility] [address] [address]- 0423 Feb, [facility] [address] [place] [id number] [place] [address] 09539- 9096 Jan, [facility] [address] [address]- 5456 Jan, [facility] [address] [place] [id number] [place] [address], [place] [address]- 2373 28 Jan, 2014 [facility] [place] [facility] [address] [id number] [place] [address]- 2667 28 Jan, 2014 [facility] [place] [facility] [address] [id number] [place] [address]- 8613 15 Jan, 2014 [facility] [place] [facility] [address] [id number] [place] [address]- 8912 15 Jan, 2014 [facility] [place] [facility] [address] [id number] [place] [address]- 7089 19 Dec, 2013 [facility] [place] [facility] [address] [id number] [place] [address]- 5692 19 Dec, 2013 [facility] [place] [facility] [address] [id number] [place] [address]- 6938 19 Dec, 2013 [facility] [place] [facility] [address] [id number] [place] [address]- 6607 19 Dec, 2013 [facility] [place] [facility] [address] [id number] [place] [address]- 4109 18 Dec, 2013 [facility] [place] [facility] [address] [id number] [place] [address]- 7916 18 Dec, 2013 [facility] [place] [facility] [address] [facility] [id number] [place] [address]- 9987 16 Dec, 2013 [facility] [place] [facility] [address] [id number] [place] [address]- 4189 16 Dec, 2013 [facility] [place] [facility] [address] [id number], [place] [address]- 5161 17 Sep, 2013 [facility] [place] [facility] [address] [id number] [place] [address]- 6574 17 Sep, 2013 [facility] [place] [facility] [address] [id number] [place] [address]- 9359 15 Jul, 2013 [facility] [place] [facility] [address] [id number], [place] [address]- 5498 15 Jul, 2013 [facility] [place] [facility] [address] [id number] [place] [address]- 4006 Jul, [facility] [place] [facility] [address] [id number] [place] [address]- 1014 Jul, [facility] [place] [facility] [address] [id number] [place] [address]- 9635 Jul, [facility] [place] [facility] [address] [id number] [place] [address]- 5685 Jul, [facility] [place] [facility] [address] [id number] [place] [address]- 2519 Jul, [facility] [place] [facility] [address] [id number] [place] [address]- 7922 Jul, [facility] [place] [facility] [address] [id number] [place] [address]- 8088 Jun, [facility] [place] [facility] [address] [id number] [place] [address]- 4001 Jun, [facility] [place] [facility] [address] [id number] [place] [address]- 2804 May, [facility] [place] [facility] [address] [id number] [place] [address]- 9781 May, [facility] [place] [facility] [address] [id number] [place] [address]- 2598 May, [facility] [place] [facility] [address] [id number] [place] [address]- 6122 May, [facility] [place] [facility] [address] [id number] [place] [address]- 2819 Apr, [facility] [place] [facility] [address] [id number] [place] [address]- 1142 Apr, [facility] [place] [facility] [address] [id number] [place] [address]- 6871 Mar, [facility] [place] [facility] [address] [id number], [place] [address]- 8519 Mar, [facility] [place] [facility] [address] [id number] [place] [address]- 3453 Feb, [facility] [place] [facility] [address] [id number], [place] [address]- 6962 Feb, [facility] [place] [facility] [address] [id number] [place] [address]- 8820 Feb, [facility] [place] [facility] [address] [id number] [place] [address]- 5654 Feb, [facility] [place] [facility] [address] [id number] [place] [address]- 7880 Jan, [facility] [place] [facility] [address] [id number] [place] 5836 Jan, [facility] [place] [facility] [address] [id number] 1352 Jan, [facility] [place] [facility] [address] [id number] [place] [address]- 0303 Jan, [facility] [place] [facility] [address] [id number], [place] [address]- 9081 Jan, [facility] [place] [facility] [address] [id number] [place] [address]- 2902 Dec, [facility] [place] [facility] [address] [id number], [place] [address]- 0205 Dec, [facility] [place] [facility] [address] [id number], [place] [address]- 1056 Nov, [facility] [place] [facility] [address] [id number], [place] [address]- 5481 Sep, [facility] [place] [facility] [address] [id number] [place] [address]- 7661 August, [facility] [place] [facility] [address] [id number] [place] [address]- 6641 August, [facility] [place] [facility] [address] [id number] [place] [address]- 8760 30 Jul, 2012 [facility] [address] [id number] [place] [address]- 9503 Jul, [facility] [address] [id number] [place] [address]- 1176 Jul, [facility] [address] [id number] [place] [address]- 7461 Jul, [facility] [address] [id number] [place] [address]- 0220 Jul, [facility] [address] [id number] [place] [address]- 1745 Jul, [facility] [address] [id number] [place] [address]- 1582 Jul, [facility] [address] [id number] [place] [address]- 4427 Jun, [facility] [address] [id number] [place] [address]- 0941 Jun, [facility] [address] [id number] [place] [address]- 0358 May, [facility] [address] [id number] [place] [address]- 6139 Apr, [facility] [address] [id number] [place] [address]- 6363 Apr, [facility] [address] [id number] [place] [address]- 6189 Mar, [facility] [place] [facility] [address] [id number] [place] [address]- 8260 Mar, [facility] [address] [id number] [place] [address]- 6896 Mar, [facility] [address] [id number] [place] [address]- 0866 Feb, [facility] [place] [facility] [address] [id number] [place] [address]- 1950 Feb, [facility] [place] [facility] [address] [id number] [place] [address]- 1538 Feb, [facility] [place] [facility] [address] [id number] [place] [address]- 3384 Feb, [facility] [place] [facility] [address] [id number] [place] [address]- 9827 Feb, [facility] [place] [facility] [address] [id number] [place] [address]- 0258 Feb, [facility] [place] [facility] [address] [id number] [place] [address]- 3984 16 Feb, 2012 [facility] [place] [facility] [address] [id number] [place] [address]- 9339 16 Feb, 2012 [facility] [place] [facility] [address] [id number] [place] [address]- 0202 14 Feb, 2012 [facility] [place] [facility] [address] [id number] [place] [address]- 4914 Feb, [facility] [place] [facility] [address] [id number] [place] [address]- 6568 Feb, [facility] [place] [facility] [address] [id number], [place] [address] 27 Dec, 2011 [facility] [place] [facility] [address] [id number], [place] [address] 07 Dec, 2011 [facility] [place] [facility] [address] [id number] [place] [address] 30 Nov, 2011 [facility] [place] [facility] [address] [id number] [place] [address] Nov, [facility] [place] [facility] [address] [id number] [place] [address] Oct, [facility] [place] [facility] [address] [id number] [place] [address] Oct, [facility] [address] [id number] [place] [address] Sep, [facility] [place] [facility] [address] [id number] [place] [address] 28 May, 2011 [facility] [address] [id number] [place] [address] May, [facility] [place] [facility] [address] [id number] [place] [address] May, [facility] [address] [id number] [place] [address], [place] [address] Apr, [facility] [address] [id number] [place] [address] Mar, [facility] [address] [id number] [place] [address] Mar, [facility] [address] [id number] [place] [address] Feb, [facility] [place] [facility] [address] [facility] [id number] [place] [address] Feb, [facility] [place] [facility] [address] [facility] [id number] [place] [address] Feb, [facility] [place] [facility] [address] [id number] [place] [address] Jan, [facility] [place] [facility] [address] [id number] [place] [address] Jan, [facility] [place] [facility] [address] [id number] [place] [address] Dec, [facility] [place] [facility] [address] [id number] [place] [address] Mar, [facility] [place] [facility] [address] [id number] [place] [address] Feb, [facility] [address] [id number], [place] [address] Feb, [facility] [id number], [place] [address] Feb, [facility] [id number], [place] [address] Jan, [facility] [id number], [place] [address] Dec, [facility] [id number], [place] [address] Nov, [facility] [id number], [place] [address] Sep, [facility] [id number], [place] [address] August, [facility] [id number], [place] [address] May, [facility] [id number], [place] [address] Mar, IMMUNIZATIONS No Known Immunizations SOCIAL HISTORY Never Assessed REASON FOR VISIT f/u Whitney. Dimitris PAVON PLAN OF CARE Activity Details Follow Up 3 Months Reason: VITAL SIGNS Height 63 in 2018-03-22 Weight 259 lbs 2018-03-22 Heart Rate 84 bpm 2018-03-22 Respiratory Rate 20 2018-03-22 BMI 45.87 kg/m2 2018-03-22 Blood pressure systolic 118 mmHg 2018-03-22 Blood pressure diastolic 72 mmHg 2018-03-22 MEDICATIONS Medication Instructions Dosage Frequency Start Date End Date Duration Status Seroquel 300 mg Orally Once a day 1 tablet 24h 30 days Active Synthroid 125 MCG Orally Once a day 1 tablet on an empty stomach in the morning 24h August, Active Diclofenac Sodium 75 MG Orally Twice a day 1 tablet with food or milk 12h August, 30 day(s) Active Active Cyclobenzaprine HCl 10 mg Orally 2 times a day 1 tablet as needed 12h 27 Dec, 2017 Active Doxycycline Hyclate 100 mg Orally every 12 hrs 1 capsule 12h Mar, 10 day(s) Active Percocet 5-325 MG Orally every 6 hrs 1 tablet as needed 6h Mar, Active PredniSONE 20 MG Orally Once a day 2 tablets 24h Mar, 5 days Active HydrOXYzine Pamoate 100 MG Orally TID prn 1 capsule Active ProAir HFA 108 (90 Base) MCG/ACT Inhalation every 6 hrs 2 puffs as needed 6h Mar, Active Nabumetone 500 mg Orally Twice a day 1 tablet 12h Dec, Mar, 30 day(s) Active RESULTS No Results PROCEDURES [...] Hospitalization History left foot swollen, stepped in [facility] 05/02/17
--- OUTSIDE RECORDS SUMMARY | 2018-06-21 20:24 | XMS REPORT ---
Author Author CORINNE BERGER [facility] Address [address] [place] [address] Care Team Providers Care Media Professional Name Role Phone CORINNE BERGER Unavailable PROBLEMS Type Condition ICD9-CM Code JFW30-TX Code Onset Dates Condition Status SNOMED Code Problem COPD (chronic obstructive pulmonary disease) J44.9 Active 15334752 Problem Lumbago with sciatica, right side M54.41 Active 580741257805165 Problem Panic disorder with agoraphobia F40.01 Active 15590884 Problem Other chronic pain G89.29 Active 65672038 Problem Degenerative joint disease M19.90 Active 295414507 Problem Morbid (severe) obesity due to excess calories E66.01 Active 22901621568984 Problem Depressive disorder, not elsewhere classified F32.9 Active 72157234 Problem Body mass index (BMI) of 40.0-44.9 in adult Z68.41 Active 793926667 Problem Mood disorder F39 Active 34390239 Problem Nicotine withdrawal F17.203 Active 78066382 Problem Acquired hypothyroidism E03.9 Active 457853496 Problem Chronic pain G89.29 Active 82515439 Problem Bipolar disease, chronic F31.9 Active 77380343 Problem 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 Active 231734989917895 Problem Right sciatic nerve pain M54.31 Active 22672003 Problem Hypothyroidism (acquired) E03.9 Active 05888350 Problem Fibrocystic changes of left breast N60.12 Active 96556848 Problem Opioid use disorder, moderate, dependence F11.20 Active 51370118 Problem Xanax use disorder, moderate F13.20 Active 004430706 Problem Pre-diabetes R73.03 Active 682279355 Problem Cigarette nicotine dependence without complication F17.210 Active 13938762 Problem Personality disorder F60.9 Active 30054619 Problem Lumbago with sciatica, left side M54.42 Active 092402288 Problem Methamphetamine use disorder, severe, 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 [address] [place] [id number] [place] [address] 56241- 1469 Apr, [facility] [address] [address]- 4388 Apr, 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 ; Psychosis, unspecified psychosis type F29 ; Xanax use disorder, moderate F13.20 ; Personality disorder F60.9 ; Opioid use disorder, moderate, dependence F11.20 and BMI 45.0-49.9, adult Z68.42 [place] [address] [address]- 6730 07 Mar, 2018 Acquired hypothyroidism E03.9 [place] [address] [address]- 5681 06 Mar, 2018 Bronchitis J40 ; Costochondritis M94.0 ; Hypothyroidism ( acquired) E03.9 ; Pre-diabetes R73.03 ; Acquired hypothyroidism E03.9 and BMI 45.0-49.9, adult Z68.42 [place] [address] [place] [id number] [place] [address] 33651- 7290 12 Feb, 2018 Lumbago with sciatica, right side M54.41 [place] [address] [place] [id number] [place] [address] 67871- 9015 Feb, Acquired hypothyroidism E03.9 [place] [address] [place] [address] 2564 Feb, Liver enzyme elevation R74.8 [place] [address] 88617- 7724 Feb, Mood disorder F39 ; Nicotine withdrawal F17.203 ; Liver enzyme elevation R74.8 ; Hypothyroidism (acquired) E03.9 and BMI 45.0-49.9, adult Z68.42 [place] [address] 27[address]- 7787 Jan, Methamphetamine use disorder, severe, 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 ; Psychosis, unspecified psychosis type F29 ; Personality disorder F60.9 ; Opioid use disorder, moderate, dependence F11.20 ; Xanax use disorder, moderate F13.20 and BMI 45.0-49.9, adult Z68.42 [place] [address] 57357- 4584 Jan, Liver enzyme elevation R74.8 and Hypothyroidism (acquired) E03.9 [place] [address] [place] [id number] [place] [address] 61506- 7627 Dec, BMI 40.0-44.9, adult Z68.41 ; Chronic pain G89.29 ; Degenerative joint disease M19.90 and Pre-diabetes R73.03 [place] [address] [place] [id number] [place] [address] 65165- 3175 Dec, [place] [address] 65708- 1593 Dec, Methamphetamine use disorder, severe, 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 ; Psychosis, unspecified psychosis type F29 ; Personality disorder F60.9 ; Opioid use disorder, moderate, dependence F11.20 ; Xanax use disorder, moderate F13.20 and BMI 40.0-44.9, adult Z68.41 [place] [address] [place] [id number] [place] [address] 99748- 9958 Sep, Depressive disorder, not elsewhere classified F32.9 and Psychosis, unspecified psychosis type F29 [place] [address] [place] [id number] [place] [address] 16388- 5685 August, [place] [address] [place] [id number] [place] [address] 73655- 2182 August, Depressive disorder, not elsewhere classified F32.9 and Psychosis, unspecified psychosis type F29 [place] [address] [place] [id number] [place] [address] 85005- 6585 August, [place] [address] [place] [id number] [place] [address] 99773- 3266 August, Lumbago with sciatica, right side M54.41 and Other chronic pain G89.29 [facility] [address] [place] [id number] [place] [address] 53550 -1125 Jul, Right sciatic nerve pain M54.31 [place] [address] [place] [id number] [place] [address] 24744- 8457 Jul, Acquired hypothyroidism E03.9 [place] [address] [place] [address] 90126- 4637 Jul, Depressive disorder, not elsewhere classified F32.9 and Psychosis, unspecified psychosis type F29 [place] [address] [place] [id number] [place] [address] 25832- 8598 Jul, Acquired hypothyroidism E03.9 ; Lumbago with sciatica, right side M54.41 and Lumbar radiculopathy, acute M54.16 [place] [address] [place] [address] 48222- 4601 Jul, Methamphetamine use disorder, severe, 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 ; Psychosis, unspecified psychosis type F29 ; Personality disorder F60.9 ; Opioid use disorder, moderate, dependence F11.20 ; Xanax use disorder, moderate F13.20 and BMI 40.0-44.9, adult Z68.41 [place] [address] [place] [id number] [place] [address] 08612- 1374 Jun, Methamphetamine use disorder, severe, 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 ; Psychosis, unspecified psychosis type F29 ; Personality disorder F60.9 ; Opioid use disorder, moderate, dependence F11.20 and Xanax use disorder, moderate F13.20 [place] [address] [place] [address] 15002- 1749 Jun, Depressive disorder, not elsewhere classified F32.9 and Psychosis, unspecified psychosis type F29 [place] [address] [place] [address] 93211- 5825 Jun, Lumbar radiculopathy, acute M54.16 [place] [address] [place] [id number] [place] [address] 43854- 1328 Jun, Lumbar radiculopathy, acute M54.16 ; Strain of abdominal wall, initial encounter S39.011A and BMI 40.0-44.9, adult Z68.41 [place] [address] [place] [id number] [place] [address] 74263- 7728 Jun, [place] [address] [place] [id number] [place] [address] 85310- 5671 May, [place] [address] [place] 413046- 5806 May, Methamphetamine use disorder, severe, 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 ; Psychosis, unspecified psychosis type F29 ; Personality disorder F60.9 ; Opioid use disorder, moderate, dependence F11.20 and Xanax use disorder, moderate F13.20 [place] [address] [place] [id number] [place] [address] 55561- 8331 May, [place] [address] 52352- 2866 May, [place] [address] 39179- 5834 May, Lumbago with sciatica, left side M54.42 ; Lumbago with sciatica, right side M54.41 ; Other chronic pain G89.29 ; Weight gain R63.5 ; Acquired hypothyroidism E03.9 and BMI 40.0-44.9, adult Z68.41 [place] [address] [place] [id number] [place] [address] 94803- 3914 Apr, Cigarette nicotine dependence without complication F17.210 [place] [address] [place] [id number] [place] [address] 54752- 0047 Apr, Acute bilateral low back pain without sciatica M54.5 [place] [address] [place] [id number] [place] [address] 76370- 1344 Apr, Methamphetamine use disorder, severe, 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 [address] [place] [id number] [place] [address] 74786 -8921 Apr, Wheezing R06.2 and Bronchitis J40 [place] [address] [place] [id number] [place] [address] 57574- 4783 02 Apr, 2017 Bronchitis J40 ; Cigarette nicotine dependence without complication F17.210 and Bipolar disease, chronic F31.9 [place] [address] [place] [id number] [place] [address] 20243- 8282 Mar, Acquired hypothyroidism E03.9 [place] [address] 93152- 1602 Mar, Acquired hypothyroidism E03.9 [place] [address] 53784- 3833 Mar, Orthostatic hypotension I95.1 and Non-intractable vomiting with nausea, unspecified vomiting type R11.[address] 57742- 9579 14 Mar, 2017 Strain of lumbar region, initial encounter S39.012A [place] [address] 14625- 5448 Mar, [facility] [address] [place] [address] 27999 -6481 Mar, Bronchitis J40 [place] [address] [place] [id number] [place] [address] 91482- 4525 05 Mar, 2017 Degenerative joint disease M19.90 ; Elevated LFTs R79.89 ; Adenopathy R59.1 ; Drug use F19.90 ; Pre-diabetes R73.03 and COPD (chronic obstructive pulmonary disease) J44.9 [facility] [address] [place] [id number] [place] [address] 05549 -9972 30 Feb, 2017 Left hand pain M79.642 and Contusion of left hand, initial encounter S60.222A [place] [address] [place] [id number] [place] [address] 61291- 2861 07 Feb, 2017 Body aches R52 and Flu-like symptoms R68.89 [place] [address] [place] [address]- 2832 Jan, [place] [address] [place] [id number] [place] [address] 73109- 7065 Jan, Bipolar disease, chronic F31.9 ; Acquired hypothyroidism E03.9 and Encounter for immunization Z23 [facility] [place] [address] [place] [id number] [place] [address] 72411 -8317 05 Dec, 2016 Crushing injury of left wrist and hand, initial encounter S67.42XA [place] [address] 65213- 9331 Sep, [address] 36767- 3718 Sep, Bipolar disease, chronic F31.9 ; Panic disorder with agoraphobia F40.01 and Proteinuria, unspecified type R80.[address] 84819- 7474 August, [place] [address] 09444- 1571 August, Degenerative joint disease M19.90 ; Left-sided chest wall pain R07.89 ; Bipolar disease, chronic F31.9 ; Type 2 diabetes mellitus without complication, without long-term current use of insulin E11.9 ; Acquired hypothyroidism E03.9 and Acute cystitis without hematuria N30.00 [place] [address] [place] [id number] [place] [address] 58525- 6094 Mar, [place] [address] [place] [id number] [place] [address] 05080- 8856 Feb, [facility] [address] 24282 -5776 Feb, Right hand pain M79.641 [facility] [place] [id number] [place] [address] 72530 -5518 Feb, Bronchitis J40 ; Acute non-recurrent pansinusitis J01.40 and Seasonal allergic rhinitis due to other allergic trigger J30.89 [facility] [address] [address]- 0178 29 Dec, 2015 [facility] [address] [address] -8777 Mar, Left-sided chest wall pain R07.89 and Chronic pain G89.29 [facility] [address] [address]- 6190 Jul, [facility] [address] [facility] [id number] [address]- 5722 Jul, [facility] [address] [place] [id number] [place] [address] 96704- 5742 May, [facility] [address] [place] [id number] [place] [address] 45649- 7234 May, [facility] [address] [place] [id number] [place] [address] 49488- 6103 Apr, [facility] [address] [address]- 5407 Apr, [facility] [address] [place] [address] 43587- 4768 Mar, [facility] [address] [place] [address]- 2812 Mar, [facility] [address] [place] [address]- 4647 Feb, [facility] [address] 4718 Feb, [facility] [address] [place] [id number] [place] [address] [id number]- 7537 Jan, [facility] [address] [place] [address]- 8445 Jan, [facility] [address] [place] [address] 96473- 4624 28 Jan, 2014 [facility] [place] [facility] [address] [id number] [place] [address]- 5935 28 Jan, 2014 [facility] [place] [facility] [address] [id number] [place] [address]- 0736 15 Jan, 2014 [facility] [place] [facility] [address] [id number] [place] [address]- 5591 15 Jan, 2014 [facility] [place] [facility] [address] [id number] [place] [address]- 0191 19 Dec, 2013 [facility] [place] [facility] [address] [id number] [place] [address]- 0258 19 Dec, 2013 [facility] [place] [facility] [address] [id number] [place] [address]- 8434 19 Dec, 2013 [facility] [place] [facility] [address] [id number] [place] [address]- 7405 19 Dec, 2013 [facility] [place] [facility] [address] [id number] [place] [address]- 4351 18 Dec, 2013 [facility] [place] [facility] [address] [id number] [place] [address]- 4766 18 Dec, 2013 [facility] [place] [facility] [address] [id number] [place] [address]- 2281 16 Dec, 2013 [facility] [place] [facility] [address] [id number], [place] [address]- 7525 16 Dec, 2013 [facility] [place] [facility] [address] [id number], [place] [address]- 8558 17 Sep, 2013 [facility] [place] [facility] [address] [id number] [place] [address]- 2583 17 Sep, 2013 [facility] [place] [facility] [address] [id number], [place] [address]- 8411 15 Jul, 2013 [facility] [place] [facility] [address] [id number], [place] [address]- 8301 15 Jul, 2013 [facility] [place] [facility] [address] [id number] [place] [address]- 1819 Jul, [facility] [address] [id number] [place] [address]- 3581 Jul, [facility] [place] [facility] [address] [id number] [place] [address]- 5467 Jul, [facility] [address] [id number] [place] [address]- 0558 Jul, [facility] [place] [facility] [address] [id number] [place] [address]- 4937 Jul, [facility] [address] [id number] [place] [address]- 6088 Jul, [facility] [place] [facility] [address] [id number] [place] [address]- 2887 Jun, [facility] [place] [facility] [address] [id number] [place] [address]- 2474 Jun, [facility] [place] [facility] [address] [id number] [place] [address]- 7768 May, [facility] [place] [facility] [address] [id number] [place] [address]- 9212 May, [facility] [address] [id number] [place] [address]- 7866 May, [facility] [place] [facility] [address] [id number] [place] [address]- 7739 May, [facility] [place] [facility] [address] [id number] [place] [address]- 1378 Apr, [facility] [place] [facility] [address] [id number] [place] [address]- 1560 Apr, [facility] [place] [facility] [address] [id number] [place] [address]- 4968 Mar, [facility] [place] [facility] [address] [id number] [place] [address]- 2289 Mar, [facility] [place] [facility] [address] [id number] [place] [address]- 4889 Feb, [facility] [place] [facility] [address] [id number] [place] [address]- 2241 Feb, [facility] [place] [facility] [address] [id number] [place] [address]- 8654 Feb, [facility] [place] [facility] [address] [id number] [place] [address]- 2185 Feb, [facility] [place] [facility] [address] [id number] [place] [address]- 1330 Jan, [facility] [place] [facility] [address] [id number] [place] [address]- 2947 Jan, [facility] [place] [facility] [address] [id number] [place] [address]- 6894 Jan, [facility] [place] [facility] [address] [id number], [place] [address]- 2096 Jan, [facility] [place] [facility] [address] [id number] [place] [address]- 9408 Jan, [facility] [place] [facility] [address] [id number], [place] [address]- 7327 Dec, [facility] [place] [facility] [address] [id number], [place] [address]- 7147 Dec, [facility] [place] [facility] [address] [id number], [place] [address]- 0706 Nov, [facility] [place] [facility] [address] [id number] [place] [address]- 7770 Sep, [facility] [place] [facility] [address] [id number], [place] [address]- 0886 August, [facility] [place] [facility] [address] [id number] [place] [address]- 2546 August, [facility] [place] [facility] [address] [id number] [place] [address]- 1849 30 Jul, 2012 [facility] [address] [id number] [place] [address]- 7919 Jul, [facility] [address] [id number] [place] [address]- 7884 Jul, [facility] [address] [id number] [place] [address]- 5501 Jul, [facility] [place] [facility] [address] [id number] [place] [address]- 1388 Jul, [facility] [address] [id number] [place] [address]- 7493 Jul, [facility] [address] [id number] [place] [address]- 6784 Jul, [facility] [address] [id number] [place] [address]- 8255 Jun, [facility] [address] [id number] [place] [address]- 3119 Jun, [facility] [address] [id number] [place] [address]- 2328 May, [facility] [address] [id number] [place] [address]- 8421 Apr, [facility] [address] [id number] [place] [address]- 4076 Apr, [facility] [address] [id number] [place] [address]- 6867 Mar, [facility] [place] [facility] [address] [id number] [place] [address]- 2868 Mar, [facility] [place] [facility] [address] [id number] [place] [address]- 1540 Mar, [facility] [address] [id number] [place] [address]- 1927 Feb, [facility] [place] [facility] [address] [id number] [place] [address]- 9414 Feb, [facility] [place] [facility] [address] [id number] [place] [address] Feb, [facility] [place] [facility] [address] [id number] [place] [address] Feb, [facility] [place] [facility] [address] [id number] [place] [address] Feb, [facility] [place] [facility] [address] [id number] [place] [address] Feb, [facility] [place] [facility] [address] [id number] [place] [address] Feb, [facility] [place] [facility] [address] [id number] [place] [address] 16 Feb, 2012 [facility] [place] [facility] [address] [id number] [place] [address] 14 Feb, 2012 [facility] [place] [facility] [address] [id number] [place] [address] Feb, [facility] [place] [facility] [address] [id number] [place] [address] Feb, [facility] [place] [facility] [address] [id number] [place] [address] 27 Dec, 2011 [facility] [place] [facility] [address] [id number] [place] [address] 07 Dec, 2011 [facility] [place] [facility] [address] [id number] [place] [address] 30 Nov, 2011 [facility] [place] [facility] [address] [id number] [place] [address] Nov, [facility] [place] [facility] [address] [id number] [place] [address] Oct, [facility] [place] [facility] [address] [id number], [place] [address] Oct, [facility] [address] [id number] [place] [address] Sep, [facility] [place] [facility] [address] [id number] [place] [address] May, [facility] [place] [facility] [address] [id number] [place] [address] May, [facility] [place] [facility] [address] [id number] [place] [address] May, [facility] [address] [id number] [place] [address] Apr, [facility] [place] [facility] [address] [id number] [place] [address] Mar, [facility] [address] [id number] [place] [address] Mar, [facility] [place] [facility] [address] [id number] [place] [address] Feb, [facility] [place] [facility] [address] [facility] [id number] [place] [address] Feb, [facility] [place] [facility] [address] [facility] [id number] [place] [address] Feb, [facility] [place] [facility] [address] [facility] [id number], [place] [address] Jan, [facility] [place] [facility] [address] [id number], [place] [address] Jan, [facility] [place] [facility] [address] [id number], [place] [address] Dec, [facility] [place] [facility] [address] [id number], [place] [address] Mar, [facility] [place] [facility] [address] [id number] [place] [address] Feb, [facility] [place] [facility] [address] [id number], [place] [address] 10 Feb, 2009 [facility] [id number], [place] [address] Feb, [facility] [id number], [place] [address] Jan, [facility] [id number] [address] Dec, [facility] [id number], [place] [address] Nov, [facility] [id number] [place] [id number] Sep, [facility] [id number], [place] [address] August, [facility] [id number] [address] May, [facility] [id number], [place] [address] Mar, IMMUNIZATIONS No Known Immunizations SOCIAL [...] left foot swollen, stepped in [facility] 05/02/17
--- OUTSIDE RECORDS SUMMARY | 2018-06-21 20:25 | XMS REPORT ---
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 Name Role Phone CORINNE BERGER Unavailable PROBLEMS Type Condition ICD9-CM Code OBS19-UN Code Onset Dates Condition Status SNOMED Code Problem COPD (chronic obstructive pulmonary disease) J44.9 Active 73762928 Problem Lumbago with sciatica, right side M54.41 Active [id number] Problem Panic disorder with agoraphobia F40.01 Active 10765275 Problem Other chronic pain G89.29 Active 11267739 Problem Degenerative joint disease M19.90 Active 968936022 Problem Morbid (severe) obesity due to excess calories E66.01 Active 70451378629336 Problem Depressive disorder, not elsewhere classified F32.9 Active 25967903 Problem Body mass index (BMI) of 40.0-44.9 in adult Z68.41 Active 387133056 Problem Mood disorder F39 Active 66780969 Problem Nicotine withdrawal F17.203 Active 40510103 Problem Acquired hypothyroidism E03.9 Active 706645652 Problem Chronic pain G89.29 Active 59683100 Problem Bipolar disease, chronic F31.9 Active 26555981 Problem 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 Active [id number] Problem Right sciatic nerve pain M54.31 Active 25374953 Problem Hypothyroidism (acquired) E03.9 Active 12227734 Problem Fibrocystic changes of left breast N60.12 Active 95496641 Problem Opioid use disorder, moderate, dependence F11.20 Active 19508025 Problem Xanax use disorder, moderate F13.20 Active 082368769 Problem Pre-diabetes R73.03 Active 576408946 Problem Cigarette nicotine dependence without complication F17.210 Active 44673307 Problem Personality disorder F60.9 Active 12060201 Problem Lumbago with sciatica, left side M54.42 Active 428464599 Problem Methamphetamine use disorder, severe, 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 Active 56191290 Problem Psychosis, unspecified psychosis type F29 Active 69605105 ALLERGIES Substance Reaction Event Type Date Status Tramadol HCl nausea and vomiting Drug Allergy Mar, Active Penicillin V Potassium anaphylaxis Drug Allergy Mar, Active Naproxen swelling Drug Allergy Mar, Active Keflex anaphylaxis Drug Allergy Mar, Active Ibuprofen nausea and vomitting Drug Allergy Mar, Active Aspirin hives Drug Allergy Mar, Active ENCOUNTERS Encounter Location Date Diagnosis [place] [address] [address] Apr, [place] [address] [address] Mar, [place] [address] [address] Mar, [place] [address] [address]- [address] Mar, Acquired hypothyroidism E03.9 [place] [address] [address]- [address] Mar, Bronchitis J40 ; Costochondritis M94.0 ; Hypothyroidism ( acquired) E03.9 ; Pre-diabetes R73.03 ; Acquired hypothyroidism E03.9 and BMI 45.0-49.9, adult Z68.42 [place] [address] [place] [id number] [place] [address]- [address] 12 Feb, 2018 Lumbago with sciatica, right side M54.41 [place] [address] [place] [id number] [place] [address] 75077- 3120 Feb, Acquired hypothyroidism E03.9 [place] [address] [place] [id number] [place] [address] 09714- 8034 Feb, Liver enzyme elevation R74.8 [place] [address] [place] [id number] [place] [address] 65759- 9550 09 Feb, 2018 Mood disorder F39 ; Nicotine withdrawal F17.203 ; Liver enzyme elevation R74.8 ; Hypothyroidism (acquired) E03.9 and BMI 45.0-49.9, adult Z68.42 [place] [id number] [place] [address] 69779- 3271 Jan, Methamphetamine use disorder, severe, 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 ; Psychosis, unspecified psychosis type F29 ; Personality disorder F60.9 ; Opioid use disorder, moderate, dependence F11.20 ; Xanax use disorder, moderate F13.20 and BMI 45.0-49.9, adult Z68.[address] [address]- [address] Jan, Liver enzyme elevation R74.8 and Hypothyroidism (acquired) E03.[address] [address]- [address]67 Dec, BMI 40.0-44.9, adult Z68.41 ; Chronic pain G89.29 ; Degenerative joint disease M19.90 and Pre-diabetes R73.03 [place] [id number] [place] [address] 55256- 4766 Dec, [place] [id number] [place] [address] 36265- 2761 Dec, Methamphetamine use disorder, severe, 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 ; Psychosis, unspecified psychosis type F29 ; Personality disorder F60.9 ; Opioid use disorder, moderate, dependence F11.20 ; Xanax use disorder, moderate F13.20 and BMI 40.0-44.9, adult Z68.41 [place] [address] [place] [id number] [place] [address] 51714- 4848 Sep, Depressive disorder, not elsewhere classified F32.9 and Psychosis, unspecified psychosis type F29 [place] [address] [place] [id number] [place] [address] 94221- 6232 August, [place] [address] [address]- [address] August, Depressive disorder, not elsewhere classified F32.9 and Psychosis, unspecified psychosis type F29 [place] [address] [place] [id number] [place] [address] 43839- 8516 August, [place] [address] [place] [id number] [place] [address] 14964- 9112 August, Lumbago with sciatica, right side M54.41 and Other chronic pain G89.29 [facility] [address] [place] [id number] [place] [address] 04923 -8047 Jul, Right sciatic nerve pain M54.31 [facility] [address] [place] [id number] [place] [address] 51238- 4495 Jul, Acquired hypothyroidism E03.9 [place] [address] [place] [id number] [place] [address] 55541- 7319 Jul, Depressive disorder, not elsewhere classified F32.9 and Psychosis, unspecified psychosis type F29 [place] [address] [place] [id number] [place] [address] 54474- 8585 Jul, Acquired hypothyroidism E03.9 ; Lumbago with sciatica, right side M54.41 and Lumbar radiculopathy, acute M54.16 [place] [address] [place] [id number] [place] [address] 98455- 7035 Jul, Methamphetamine use disorder, severe, 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 ; Psychosis, unspecified psychosis type F29 ; Personality disorder F60.9 ; Opioid use disorder, moderate, dependence F11.20 ; Xanax use disorder, moderate F13.20 and BMI 40.0-44.9, adult Z68.41 [place] [address] [place] [id number] [place] [address] 06331- 0554 Jun, Methamphetamine use disorder, severe, 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 ; Psychosis, unspecified psychosis type F29 ; Personality disorder F60.9 ; Opioid use disorder, moderate, dependence F11.20 and Xanax use disorder, moderate F13.20 [place] [address] [place] [id number] [place] [address] 03542- 9299 Jun, Depressive disorder, not elsewhere classified F32.9 and Psychosis, unspecified psychosis type F29 [place] [address] [place] [id number] [place] [address] 79616- 1787 Jun, Lumbar radiculopathy, acute M54.16 [place] [address] [place] [id number] [place] [address] 96247- 4657 Jun, Lumbar radiculopathy, acute M54.16 ; Strain of abdominal wall, initial encounter S39.011A and BMI 40.0-44.9, adult Z68.41 [place] [address] [place] [id number] [place] [address] 50732- 7163 Jun, [place] [address] [place] [id number] [place] [address] 46059- 5739 May, [place] [address] [place] [id number] [place] [address] 35143- 3076 May, Methamphetamine use disorder, severe, 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 ; Psychosis, unspecified psychosis type F29 ; Personality disorder F60.9 ; Opioid use disorder, moderate, dependence F11.20 and Xanax use disorder, moderate F13.20 [place] [address] 96641- 2832 May, [place] [address] 81519- 6025 May, [place] [address] 643072- 0919 May, Lumbago with sciatica, left side M54.42 ; Lumbago with sciatica, right side M54.41 ; Other chronic pain G89.29 ; Weight gain R63.5 ; Acquired hypothyroidism E03.9 and BMI 40.0-44.9, adult Z68.41 [place] [address] 90189- 1482 Apr, Cigarette nicotine dependence without complication F17.210 [place] [address] 08733- 8107 Apr, Acute bilateral low back pain without sciatica M54.5 [place] [address] 53288- 1388 Apr, Methamphetamine use disorder, severe, 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 ; Psychosis, unspecified psychosis type F29 ; Personality disorder F60.9 ; Opioid use disorder, moderate, dependence F11.20 and Xanax use disorder, moderate F13.20 [facility] [address] [place] [id number] [place] [address] 62388 -3950 Apr, Wheezing R06.2 and Bronchitis J40 [place] [address] 74910- 7446 Apr, Bronchitis J40 ; Cigarette nicotine dependence without complication F17.210 and Bipolar disease, chronic F31.9 [place] [address] 73288- 2554 Mar, Acquired hypothyroidism E03.9 [place] [address] [place] [id number] [place] [address] 69535- 2695 Mar, Acquired hypothyroidism E03.9 [place] [address] 48420- 8166 Mar, Orthostatic hypotension I95.1 and Non-intractable vomiting with nausea, unspecified vomiting type R11.[address] 92733- 1073 Mar, Strain of lumbar region, initial encounter S39.012A [address] 31752- 8895 Mar, [facility] [address] [place] [address] 76748 -9271 Mar, Bronchitis J40 [address] 89854- 8181 Mar, Degenerative joint disease M19.90 ; Elevated LFTs R79.89 ; Adenopathy R59.1 ; Drug use F19.90 ; Pre-diabetes R73.03 and COPD (chronic obstructive pulmonary disease) J44.9 [facility] [address] [address] Feb, Left hand pain M79.642 and Contusion of left hand, initial encounter S60.222A [address] 36534- 5255 Feb, Body aches R52 and Flu-like symptoms R68.[address] 56096- 1804 Jan, [address] 66570- 4508 Jan, Bipolar disease, chronic F31.9 ; Acquired hypothyroidism E03.9 and Encounter for immunization Z23 [facility] [address] [address] Dec, Crushing injury of left wrist and hand, initial encounter S67.42XA [place] [address] 50592- 6638 Sep, [place] [address] 35906- 5810 Sep, Bipolar disease, chronic F31.9 ; Panic disorder with agoraphobia F40.01 and Proteinuria, unspecified type R80.9 [place] [address] 67308- 8917 August, [place] [address] 41930- 2842 August, Degenerative joint disease M19.90 ; Left-sided chest wall pain R07.89 ; Bipolar disease, chronic F31.9 ; Type 2 diabetes mellitus without complication, without long-term current use of insulin E11.9 ; Acquired hypothyroidism E03.9 and Acute cystitis without hematuria N30.00 [place] [address] 17161- 9630 07 Mar, 2016 [place] [address] 03319- 3760 30 Feb, 2016 [facility] [address] [address] Feb, Right hand pain M79.641 [facility] [address] 109[address]8548 Feb, Bronchitis J40 ; Acute non-recurrent pansinusitis J01.40 and Seasonal allergic rhinitis due to other allergic trigger J30.89 [place] [address] 92666- 2713 Dec, [facility] [address] 33[address]25[address] Mar, Left-sided chest wall pain R07.89 and Chronic pain G89.29 [facility] [place] [facility] [address] [id number] [place] [address]- 3139 14 Jul, 2014 [facility] [place] [facility] [address] [id number] [place] [address]- 2122 Jul, [facility] [place] [facility] [address] [id number] [place] [address]- 4205 May, [facility] [place] [facility] [address] [id number] [place] [address]- 8303 May, [facility] [place] [facility] [address] [id number] [place] [address]- 0493 Apr, [facility] [place] [facility] [address] [id number] [place] [address]- 2711 Apr, [facility] [place] [facility] [address] [facility] [id number] [place] [address]- 6289 Mar, [facility] [place] [facility] [address] [id number] [place] [address]- 1036 Mar, [facility] [place] [facility] [address] [id number] [place] [address]- 8062 Feb, [facility] [place] [facility] [address] [facility] [id number] [place] [address]- 2674 Feb, [facility] [place] [facility] [address] [facility] [id number] [place] [address]- 3525 Jan, [facility] [place] [facility] [address] [id number] [place] [address]- 1621 Jan, [facility] [place] [facility] [address] [id number] [place] [address]- 7946 Jan, [facility] [place] [facility] [address] [id number] [place] [address]- 1246 Jan, [facility] [place] [facility] [address] [id number] [place] 6332 15 Jan, 2014 [facility] [place] [facility] [address] [id number] [place] [address]- 8842 15 Jan, 2014 [facility] [place] [facility] [address] [id number] [place] [address]- 8729 19 Dec, 2013 [facility] [place] [facility] [address] [id number] [place] [address]- 2436 19 Dec, 2013 [facility] [place] [facility] [address] [id number] [place] [address]- 9894 19 Dec, 2013 [facility] [place] [facility] [address] [id number] [place] [address]- 4612 19 Dec, 2013 [facility] [place] [facility] [address] [id number] [place] [address]- 7438 18 Dec, 2013 [facility] [place] [facility] [address] [id number] [place] [address]- 1689 18 Dec, 2013 [facility] [place] [facility] [address] [id number] [place] [address]- 7670 16 Dec, 2013 [facility] [place] [facility] [address] [id number] [place] [address]- 3039 16 Dec, 2013 [facility] [place] [facility] [address] [id number] [place] [address]- 0954 17 Sep, 2013 [facility] [place] [facility] [address] [id number] [place] [address]- 6083 17 Sep, 2013 [facility] [place] [facility] [address] [id number] [place] [address]- 7768 15 Jul, 2013 [facility] [place] [facility] [address] [id number] [place] [address]- 1804 15 Jul, 2013 [facility] [place] [facility] [address] [id number] [place] [address]- 8687 10 Jul, 2013 [facility] [place] [facility] [address] [id number] [place] [address]- 2480 10 Jul, 2013 [facility] [place] [facility] [address] [id number] [place] [address]- 1657 03 Jul, 2013 [facility] [place] [facility] [address] [id number] [place] [address]- 7971 Jul, [facility] [place] [facility] [address] [id number] [place] [address]- 2612 Jul, [facility] [place] [facility] [address] [id number] [place] [address]- 8074 Jul, [facility] [place] [facility] [address] [id number] [place] [address]- 3025 Jun, [facility] [place] [facility] [address] [id number] [place] [address]- 9409 Jun, [facility] [place] [facility] [address] [id number] [place] [address]- 0014 May, [facility] [place] [facility] [address] [id number] [place] [address]- 6988 May, [facility] [place] [facility] [address] [id number] [place] [address]- 0098 May, [facility] [place] [facility] [address] [id number] [place] [address]- 1025 May, [facility] [place] [facility] [address] [id number] [place] [address]- 4394 Apr, [facility] [place] [facility] [address] [id number] [place] [address]- 3613 Apr, [facility] [place] [facility] [address] [id number] [place] [address]- 4026 Mar, [facility] [place] [facility] [address] [id number] [place] [address]- 6689 Mar, [facility] [place] [facility] [address] [id number] [place] [address]- 8086 Feb, [facility] [place] [facility] [address] [id number] [place] [address]761 Feb, [facility] [place] [facility] [address] [id number] [place] [address]- 3675 Feb, [facility] [address] [id number] [place] [address]- 6674 Feb, [facility] [place] [facility] [address] [id number] [place] [address]- 2546 Jan, [facility] [place] [facility] [address] [facility] [id number] [place] [address]- 2546 Jan, [facility] [place] [facility] [address] [id number] [place] [address]- 2546 Jan, [facility] [place] [facility] [address] [id number] [place] [address]- 2542 Jan, [facility] [place] [facility] [address] [id number] [place] [address]- 4352 Jan, [facility] [place] [facility] [address] [id number] [place] [address]- 2936 Dec, [facility] [place] [facility] [address] [id number] [place] [address]- 9123 Dec, [facility] [place] [facility] [address] [id number] [place] [address]- 5133 Nov, [facility] [place] [facility] [address] [id number] [place] [address] 2546 Sep, [facility] [place] [facility] [address] [id number] [place] [address]- 6506 August, [facility] [place] [facility] [address] [id number] [place] [address]- 2546 August, [facility] [place] [facility] [address] [id number] [place] [address]- 2546 Jul, [facility] [place] [facility] [address] [id number] [place] [address]- 7972 Jul, [facility] [place] [facility] [address] [id number] [place] [address]- 2546 Jul, [facility] [place] [facility] [address] [id number] [place] [address]- 8884 Jul, [facility] [address] [id number] [place] [address]- 6215 Jul, [facility] [address] [id number] [place] [address]- 6236 Jul, [facility] [address] [id number] [place] [address]- 2687 Jul, [facility] [address] [id number] [place] [address]- 4059 Jun, [facility] [address] [id number] [place] [address]- 4115 Jun, [facility] [address] [id number] [place] [address]- 6554 May, [facility] [address] [id number] [place] [address]- 2994 Apr, [facility] [address] [id number] [place] [address]- 1103 Apr, [facility] [address] [id number] [place] [address]- 3461 Mar, [facility] [address] [id number] [place] [address]- 3806 Mar, [facility] [address] [id number] [place] [address]- 7418 Mar, [facility] [address] [id number] [place] [address]- 9727 Feb, [facility] [place] [facility] [address] [id number] [place] [address]- 2344 Feb, [facility] [place] [facility] [address] [id number] [place] [address]- 3972 Feb, [facility] [address] [id number] [place] [address]- 4530 Feb, [facility] [place] [facility] [address] [id number] [place] [address]- 5269 Feb, [facility] [place] [facility] [address] [id number] [place] [address]- 3356 19 Feb, 2012 [facility] [place] [facility] [address] [id number] [place] [address]- 9199 16 Feb, 2012 [facility] [place] [facility] [address] [id number] [place] [address]- 6006 16 Feb, 2012 [facility] [place] [facility] [address] [id number] [place] [address]- 3927 14 Feb, 2012 [facility] [place] [facility] [address] [id number] [place] [address]- 4098 Feb, [facility] [place] [facility] [address] [id number] [place] [address]- 6535 Feb, [facility] [place] [facility] [address] [id number] [place] [address]- 7811 27 Dec, 2011 [facility] [place] [facility] [address] [id number] [place] [address]- 1401 Dec, [facility] [place] [facility] [address] [id number] [place] [address]- 3415 30 Nov, 2011 [facility] [place] [facility] [address] [id number] [place] [address]- 9248 Nov, [facility] [place] [facility] [address] [id number] [place] [address]- 2512 Oct, [facility] [place] [facility] [address] [id number] [place] [address]- 7412 Oct, [facility] [place] [facility] [address] [id number] [place] [address]- [address] Sep, [facility] [place] [facility] [address] [id number] [place] [address] May, [facility] [place] [facility] [address] [id number] [place] [address] May, [facility] [address] [id number] [place] [address] May, [facility] [place] [facility] [address] [facility] [id number] [place] [address] Apr, [facility] [address] [facility] [id number] [place] Mar, [facility] [place] [facility] [address] [id number] [place] [address] Mar, [facility] [place] [facility] [address] [facility] [id number] [place] [address], [place] [address] Feb, [facility] [place] [facility] [address] [facility] [id number] [place] [address] Feb, [facility] [address] [facility] [id number] [place] [address] Feb, [facility] [place] [facility] [address] [facility] [id number] [place] [address] Jan, [facility] [place] [facility] [address] [facility] [id number] [place] [address] Jan, [facility] [place] [facility] [address] [facility] [id number] [place] [address] Dec, [facility] [place] [facility] [address] [facility] [id number] [place] [address] Mar, [facility] [place] [facility] [address] [id number] [place] [address] Feb, [facility] [place] [facility] [address] [facility] [id number] [place] [address] Feb, [facility] [place] [facility] [address] [facility] [id number] [place] [address] Feb, [facility] [place] [facility] [address] [facility] [id number] [place] [address] Jan, [facility] [place] [facility] [address] [facility] [id number] [place] [address] Dec, [facility] [address] [id number] [place] [address] Nov, [facility] [id number] [place] [address] Sep, [place] [id number] [address] August, [facility] [address] [facility] [id number] [place] [address] May, [place] [id number] [place] [address] Mar, IMMUNIZATIONS No Known Immunizations SOCIAL HISTORY Never Assessed REASON FOR VISIT Diabetes-RODNEY burleson, pt wants to know her results on her blood work,also not feel well coughing yellow phlegm, with congestion PLAN OF CARE VITAL SIGNS Height 63 in 2018-03-15 Weight 266.2 lbs 2018-03-15 Temperature 97.2 degrees Fahrenheit 2018-03-15 Heart Rate 83 bpm 2018-03-15 Respiratory Rate 20 2018-03-15 Oximetry on room air:95 % 2018-03-15 BMI 47.15 kg/m2 2018-03-15 Blood pressure systolic 100 mmHg 2018-03-15 Blood pressure diastolic 72 mmHg 2018-03-15 MEDICATIONS Medication Instructions Dosage Frequency Start Date End Date Duration Status ProAir HFA 108 (90 Base) MCG/ACT Inhalation every 6 hrs 2 puffs as needed 6h Mar, Active Percocet 5-325 MG Orally every 6 hrs 1 tablet as needed 6h Mar, Active Doxycycline Hyclate 100 mg Orally every 12 hrs 1 capsule 12h Mar, 10 day(s) Active Nabumetone 500 mg Orally Twice a day 1 tablet 12h Dec, Mar, 30 day(s) Active HydrOXYzine Pamoate 100 MG Orally TID prn 1 capsule Active Synthroid 100 MCG Orally Once a day 1 tablet on an empty stomach in the morning 24h August, Active Active Prozac 20 mg Orally Once a day 1 capsule 24h Feb, 30 day(s) Active Seroquel 300 MG Orally Once a day 1 tablet 24h Active Diclofenac Sodium 75 MG Orally Twice a day 1 tablet with food or milk 12h August, 30 day(s) Active PredniSONE 20 MG Orally Once a day 2 tablets 24h 06 Mar, 2018 5 days Active Cyclobenzaprine HCl 10 mg Orally 2 times a day 1 tablet as needed 12h 27 Dec, 2017 Active HydrOXYzine HCl 50 MG TAKE TWO (2) TABLETS BY MOUTH THREE (3) TIMES DAILY NEEDED FOR ANXIETY 30 Not-Taking RESULTS No Results PROCEDURES Procedure Date Ordered Result Body Site GLYCATED HEMOGLOBIN TEST Mar 15, 2018 VENIPUNCT, ROUTINE* Mar 15, 2018 [facility] Mar 15, 2018 INSTRUCTIONS MEDICATIONS ADMINISTERED No Known Medications [...]
--- OUTSIDE RECORDS SUMMARY | 2018-06-21 20:25 | XMS REPORT ---
Author Author CORINNE BERGER [facility] Address [address] [place] [address] Care Team Providers Care Liner Roll Changer Name Role Phone CORINNE BERGER Unavailable PROBLEMS Type Condition ICD9-CM Code [id number] Code Onset Dates Condition Status SNOMED Code Problem COPD (chronic obstructive pulmonary disease) J44.9 Active 34544981 Problem Lumbago with sciatica, right side M54.41 Active 292811906991715 Problem Panic disorder with agoraphobia F40.01 Active 44524403 Problem Other chronic pain G89.29 Active 07266882 Problem Degenerative joint disease M19.90 Active 074399353 Problem Morbid (severe) obesity due to excess calories E66.01 Active 52928309893702 Problem Depressive disorder, not elsewhere classified F32.9 Active 64535274 Problem Body mass index (BMI) of 40.0-44.9 in adult Z68.41 Active 351763046 Problem Mood disorder F39 Active 96267328 Problem Nicotine withdrawal F17.203 Active 99426406 Problem Acquired hypothyroidism E03.9 Active 385203604 Problem Chronic pain G89.29 Active 16344608 Problem Bipolar disease, chronic F31.9 Active 43217515 Problem 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 Active 917889228155523 Problem Right sciatic nerve pain M54.31 Active 59869844 Problem Hypothyroidism (acquired) E03.9 Active 75967534 Problem Fibrocystic changes of left breast N60.12 Active 34189170 Problem Opioid use disorder, moderate, dependence F11.20 Active 99550469 Problem Xanax use disorder, moderate F13.20 Active 051945386 Problem Pre-diabetes R73.03 Active 379812518 Problem Cigarette nicotine dependence without complication F17.210 Active 05386642 Problem Personality disorder F60.9 Active 56129951 Problem Lumbago with sciatica, left side M54.42 Active 539670555 Problem Methamphetamine use disorder, severe, 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 Active 35547151 Problem Psychosis, unspecified psychosis type F29 Active 36215681 ALLERGIES No Information ENCOUNTERS Encounter Location Date Diagnosis [place] [id number] [place] [address] 91657- 5073 Apr, [place] [id number] [place] [address] 39460- 5047 Mar, [place] [address] 99[address]- 9841 Mar, [place] [address] 48[address]- 1326 Mar, Acquired hypothyroidism E03.9 [place] [address] 12469- 7178 Mar, Bronchitis J40 ; Costochondritis M94.0 ; Hypothyroidism ( acquired) E03.9 ; Pre-diabetes R73.03 ; Acquired hypothyroidism E03.9 and BMI 45.0-49.9, adult Z68.42 [place] [id number] [place] [address] 75861- 3843 12 Feb, 2018 Lumbago with sciatica, right side M54.41 [place] [id number] [place] [address] 29803- 3980 Feb, Acquired hypothyroidism E03.9 [place] [id number] [place] [address] 95899- 2701 Feb, Liver enzyme elevation R74.8 [place] [id number] [place] [address] 90390- 8893 Feb, Mood disorder F39 ; Nicotine withdrawal F17.203 ; Liver enzyme elevation R74.8 ; Hypothyroidism (acquired) E03.9 and BMI 45.0-49.9, adult Z68.42 [place] [id number] [place] [address] 30357- 5581 04 Jan, 2018 Methamphetamine use disorder, severe, 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 ; Psychosis, unspecified psychosis type F29 ; Personality disorder F60.9 ; Opioid use disorder, moderate, dependence F11.20 ; Xanax use disorder, moderate F13.20 and BMI 45.0-49.9, adult Z68.42 [place] [address] 68756- 0461 Jan, Liver enzyme elevation R74.8 and Hypothyroidism (acquired) E03.[address] [address]772- 7005 27 Dec, 2017 BMI 40.0-44.9, adult Z68.41 ; Chronic pain G89.29 ; Degenerative joint disease M19.90 and Pre-diabetes R73.[address] 82733- 8937 Dec, [address] 37491- 7675 Dec, Methamphetamine use disorder, severe, 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 ; Psychosis, unspecified psychosis type F29 ; Personality disorder F60.9 ; Opioid use disorder, moderate, dependence F11.20 ; Xanax use disorder, moderate F13.20 and BMI 45.0-49.9, adult Z68.42 [place] [address] 88827- 7509 Dec, [address] 30782- 2343 Oct, Breast pain N64.4 ; Fibrocystic changes of left breast N60.12 and Bilateral otitis media with effusion H65.93 [facility] [address] [address] Sep, 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 58292- 6583 Sep, [place] [address] 92312- 0638 Sep, Methamphetamine use disorder, severe, 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 ; Psychosis, unspecified psychosis type F29 ; Personality disorder F60.9 ; Opioid use disorder, moderate, dependence F11.20 ; Xanax use disorder, moderate F13.20 and BMI 40.0-44.9, adult Z68.41 [facility] [id number] [place] [address] 74452- 5631 Sep, Depressive disorder, not elsewhere classified F32.9 and Psychosis, unspecified psychosis type F29 [facility] [address] 86940- 4718 August, [place] [address] 49741- 0959 August, Depressive disorder, not elsewhere classified F32.9 and Psychosis, unspecified psychosis type F29 [place] [id number] [place] [address] 73197- 1223 August, [place] [address] 65205- 4381 August, Lumbago with sciatica, right side M54.41 and Other chronic pain G89.29 [facility] [address] [address] Jul, Right sciatic nerve pain M54.31 [place] [id number] [place] [address] 50296- 6182 Jul, Acquired hypothyroidism E03.9 [facility] [address] 72872- 1539 Jul, Depressive disorder, not elsewhere classified F32.9 and Psychosis, unspecified psychosis type F29 [place] [address] 11289- 3747 Jul, Acquired hypothyroidism E03.9 ; Lumbago with sciatica, right side M54.41 and Lumbar radiculopathy, acute M54.16 [facility] [id number] [place] [address] 47135- 2158 Jul, Methamphetamine use disorder, severe, 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 ; Psychosis, unspecified psychosis type F29 ; Personality disorder F60.9 ; Opioid use disorder, moderate, dependence F11.20 ; Xanax use disorder, moderate F13.20 and BMI 40.0-44.9, adult Z68.41 [place] [id number] [place] [address] 77538- 6021 Jun, Methamphetamine use disorder, severe, 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 ; Psychosis, unspecified psychosis type F29 ; Personality disorder F60.9 ; Opioid use disorder, moderate, dependence F11.20 and Xanax use disorder, moderate F13.20 [place] [address] 696759- 1778 Jun, Depressive disorder, not elsewhere classified F32.9 and Psychosis, unspecified psychosis type F29 [place] [id number] [place] [address] 16318- 2274 Jun, Lumbar radiculopathy, acute M54.16 [place] [id number] [place] [address] 33935- 0009 Jun, Lumbar radiculopathy, acute M54.16 ; Strain of abdominal wall, initial encounter S39.011A and BMI 40.0-44.9, adult Z68.41 [place] [id number] [place] [address] 84891- 9922 Jun, [place] [id number] [place] [address] 28741- 9609 May, [place] [id number] [place] [address] 93464- 1551 May, Methamphetamine use disorder, severe, 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 ; Psychosis, unspecified psychosis type F29 ; Personality disorder F60.9 ; Opioid use disorder, moderate, dependence F11.20 and Xanax use disorder, moderate F13.20 [place] [id number] [place] [address] 99488- 7606 May, [facility] [id number] [place] [address] 93868- 5114 May, [place] [address] 87947- 6312 May, Lumbago with sciatica, left side M54.42 ; Lumbago with sciatica, right side M54.41 ; Other chronic pain G89.29 ; Weight gain R63.5 ; Acquired hypothyroidism E03.9 and BMI 40.0-44.9, adult Z68.41 [place] [address] 60067- 3332 Apr, Cigarette nicotine dependence without complication F17.210 [place] [address] 76156- 7698 Apr, Acute bilateral low back pain without sciatica M54.[address] 90032- 3127 Apr, Methamphetamine use disorder, severe, 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 ; Psychosis, unspecified psychosis type F29 ; Personality disorder F60.9 ; Opioid use disorder, moderate, dependence F11.20 and Xanax use disorder, moderate F13.20 [facility] [id number] [place] [address] 83980 -6490 Apr, Wheezing R06.2 and Bronchitis J40 [address] 70424- 9125 Apr, Bronchitis J40 ; Cigarette nicotine dependence without complication F17.210 and Bipolar disease, chronic F31.9 [place] [address] 22514- 3237 Mar, Acquired hypothyroidism E03.9 [place] [address] 40455- 4455 Mar, Acquired hypothyroidism E03.9 [facility] [address] 70861- 3940 Mar, Orthostatic hypotension I95.1 and Non-intractable vomiting with nausea, unspecified vomiting type R11.2 [place] [id number] [place] [address] 55762- 2665 Mar, Strain of lumbar region, initial encounter S39.012A [place] [id number] [place] [address] 08932- 6691 Mar, [facility] [address] [place] [address] 74498 -0405 Mar, Bronchitis J40 [address] 30626- 2063 05 Mar, 2017 Degenerative joint disease M19.90 ; Elevated LFTs R79.89 ; Adenopathy R59.1 ; Drug use F19.90 ; Pre-diabetes R73.03 and COPD (chronic obstructive pulmonary disease) J44.9 [facility] [address] 9[address] -1283 Feb, Left hand pain M79.642 and Contusion of left hand, initial encounter S60.222A [address] 36364- 7085 Feb, Body aches R52 and Flu-like symptoms R68.89 [place] [id number] [place] [address] 26181- 4261 Jan, [address] 21810- 7892 Jan, Bipolar disease, chronic F31.9 ; Acquired hypothyroidism E03.9 and Encounter for immunization Z23 [facility] [address] 98[address]03[address] 05 Dec, 2016 Crushing injury of left wrist and hand, initial encounter S67.42XA [place] [id number] [place] [address] 09286- 3466 Sep, [place] [id number] [place] [address] 51240- 8449 Sep, Bipolar disease, chronic F31.9 ; Panic disorder with agoraphobia F40.01 and Proteinuria, unspecified type R80.9 [place] [id number] [place] [address] 03714- 5456 August, [address] 87066- 0764 August, Degenerative joint disease M19.90 ; Left-sided chest wall pain R07.89 ; Bipolar disease, chronic F31.9 ; Type 2 diabetes mellitus without complication, without long-term current use of insulin E11.9 ; Acquired hypothyroidism E03.9 and Acute cystitis without hematuria N30.[address] 36596- 3769 Mar, [address] 74592- 0333 Feb, [facility] [address] 89978 -1880 Feb, Right hand pain M79.641 [facility] [address] 08198 -9950 Feb, Bronchitis J40 ; Acute non-recurrent pansinusitis J01.40 and Seasonal allergic rhinitis due to other allergic trigger J30.[address] 80626- 5650 Dec, [facility] [address] [address]1996 Mar, Left-sided chest wall pain R07.89 and Chronic pain G89.[address] 60065- [address]132 Jul, [address] 14563- 3801 Jul, [id number] [place] [address]- [address] May, [facility] [place] [facility] [address] [id number] [place] [address]- 3308 May, [facility] [place] [facility] [address] [id number] [place] [address]- 6633 Apr, [facility] [place] [facility] [address] [id number] [place] [address]- 3983 Apr, [facility] [place] [facility] [address] [id number] [place] [address]- 2325 Mar, [facility] [place] [facility] [address] [id number] [place] [address]- 5245 Mar, [facility] [place] [facility] [address] [id number] [place] [address]245 Feb, [facility] [place] [facility] [address] [id number] [place] [address]- 9251 Feb, [facility] [place] [facility] [address] [id number] [place] [address]- 3107 Jan, [facility] [place] [facility] [address] [id number] [place] [address]- 5768 Jan, [facility] [place] [facility] [address] [facility] [id number] [place] [address]- 7922 Jan, [facility] [place] [facility] [address] [id number] [place] [address]- 7967 Jan, [facility] [place] [facility] [address] [id number] [place] [address]- 4363 Jan, [facility] [place] [facility] [address] [id number] [place] [address]- 6963 Jan, [facility] [place] [facility] [address] [id number] [place] [address]- 1693 Dec, [facility] [place] [facility] [address] [id number] [place] [address]- 9421 Dec, [facility] [place] [facility] [address] [id number] [place] [address]- 5658 19 Dec, 2013 [facility] [place] [facility] [address] [id number] [place] [address]- 8261 19 Dec, 2013 [facility] [place] [facility] [address] [id number] [place] [address]- 6517 18 Dec, 2013 [facility] [place] [facility] [address] [id number] [place] [address]- 9812 18 Dec, 2013 [facility] [place] [facility] [address] [id number] [place] [address]- 7183 16 Dec, 2013 [facility] [place] [facility] [address] [id number] [place] [address]- 9849 16 Dec, 2013 [facility] [place] [facility] [address] [id number] [place] [address]- 3511 17 Sep, 2013 [facility] [place] [facility] [address] [id number] [place] [address]- 8573 17 Sep, 2013 [facility] [place] [facility] [address] [id number] [place] [address]- 9682 15 Jul, 2013 [facility] [place] [facility] [address] [id number] [place] [address]- 9130 15 Jul, 2013 [facility] [place] [facility] [address] [id number] [place] [address]- 5231 10 Jul, 2013 [facility] [place] [facility] [address] [id number] [address]- 0510 10 Jul, 2013 [facility] [place] [facility] [address] [id number] [place] [address]- 4157 03 Jul, 2013 [facility] [place] [facility] [address] [id number] [place] [address]- 0021 03 Jul, 2013 [facility] [place] [facility] [address] [id number] [place] [address]- 1567 03 Jul, 2013 [facility] [place] [facility] [address] [id number] [place] [address]- 4072 Jul, [facility] [place] [facility] [address] [id number] [place] [address]- 3240 Jun, [facility] [place] [facility] [address] [id number] [place] [address]- 0661 Jun, [facility] [place] [facility] [address] [id number] [place] [address]- 5906 May, [facility] [place] [facility] [address] [id number] [place] [address]- 7538 May, [facility] [place] [facility] [address] [id number] [place] [address]- 8240 May, [facility] [place] [facility] [address] [id number] [place] [address]- 2619 May, [facility] [place] [facility] [address] [facility] [id number] [place] [address]- 2396 Apr, [facility] [place] [facility] [address] [id number] [place] [address]- 5750 Apr, [facility] [place] [facility] [address] [facility] [id number] [place] [address]- 9935 Mar, [facility] [place] [facility] [address] [facility] [id number] [place] [address]- 8243 Mar, [facility] [place] [facility] [address] [id number] [place] [address]- 2792 Feb, [facility] [place] [facility] [address] [id number] [place] [address]- 4432 Feb, [facility] [place] [facility] [address] [id number] [place] [address]- 0224 Feb, [facility] [place] [facility] [address] [id number] [place] [address]- 4921 Feb, [facility] [place] [facility] [address] [facility] [id number] [place] [address]- 4051 Jan, [facility] [place] [facility] [address] [id number] [place] [address]- 4545 Jan, [facility] [place] [facility] [address] [id number] [place] [address]- 8523 Jan, [facility] [place] [facility] [address] [id number] [place] [address]- 7584 Jan, [facility] [place] [facility] [address] [id number] [place] [address]- 7890 Jan, [facility] [address] [id number] [place] [address]- 6582 Dec, [facility] [place] [facility] [address] [id number] [place] [address]- 2756 Dec, [facility] [address] [id number] [place] [address]- 8069 Nov, [facility] [address] [id number] [place] [address]- 5858 Sep, [facility] [place] [facility] [address] [id number] [place] [address]- 2803 August, [facility] [place] [facility] [address] [id number] [place] [address]- 8983 August, [facility] [place] [facility] [address] [id number] [place] [address]- 0201 Jul, [facility] [place] [facility] [address] [id number] [address]- 1500 Jul, [facility] [place] [facility] [address] [id number] [place] [address]- 6083 Jul, [facility] [place] [facility] [address] [id number] [place] [address]- 1424 Jul, [facility] [place] [facility] [address] [id number] [place] [address]- 0857 Jul, [facility] [place] [facility] [address] [id number] [place] [address]- 8968 Jul, [facility] [address] [id number] [place] [address]- 2154 Jul, [facility] [place] [facility] [address] [id number] [place] [address]- 0849 Jun, [facility] [place] [facility] [address] [facility] [id number] [place] [address]- 9253 Jun, [facility] [place] [facility] [address] [id number] [place] [address]- 2988 May, [facility] [place] [facility] [address] [id number] [place] [address]- 4040 Apr, [facility] [place] [facility] [address] [id number] [place] [address]- 4122 Apr, [facility] [address] [facility] [id number] [place] [address]- 3436 Mar, [facility] [place] [facility] [address] [id number] [place] [address]- 5414 Mar, [facility] [place] [facility] [address] [facility] [id number] [place] [address]- 3797 Mar, [facility] [place] [facility] [address] [facility] [id number] [place] [address]- 3673 Feb, [facility] [place] [facility] [address] [id number] [place] [address]- 2255 Feb, [facility] [place] [facility] [address] [id number] [place] [address]- 2891 Feb, [facility] [place] [facility] [address] [id number] [place] [address]- 2976 Feb, [facility] [place] [facility] [address] [facility] [id number] [place] [address]- 1700 Feb, [facility] [place] [facility] [address] [facility] [id number] [place] [address]- 7463 Feb, [facility] [place] [facility] [address] [id number] [place] [address]- 5563 16 Feb, 2012 [facility] [place] [facility] [address] [id number] [place] [address]- 3559 16 Feb, 2012 [facility] [place] [facility] [address] [id number] [place] [address]- 1626 14 Feb, 2012 [facility] [place] [facility] [address] [id number] [place] [address]- 6504 08 Feb, 2012 [facility] [place] [facility] [address] [id number] [place] [address]- 3408 08 Feb, 2012 [facility] [place] [facility] [address] [id number] [place] [address]- 6696 27 Dec, 2011 [facility] [place] [facility] [address] [id number] [place] [address]- 8372 07 Dec, 2011 [facility] [place] [facility] [address] [id number] [place] [address]- 0532 30 Nov, 2011 [facility] [place] [facility] [address] [id number] [place] [address]- 9992 Nov, [facility] [place] [facility] [address] [id number] [place] [address]- 5568 Oct, [facility] [place] [facility] [address] [id number] [place] [address]- 6223 Oct, [facility] [place] [facility] [address] [id number] [place] [address]- 8697 Sep, [facility] [place] [facility] [address] [id number] [place] [address]- 9276 28 May, 2011 [facility] [place] [facility] [address] [id number] [place] [address]- 9975 15 May, 2011 [facility] [place] [facility] [address] [id number] [place] [address]- 0436 May, [facility] [place] [facility] [address] [id number] [place] [address] Apr, [facility] [place] [facility] [address] [id number] [place] [address] Mar, [facility] [place] [facility] [address] [id number] [place] [address] Mar, [facility] [place] [facility] [address] [facility] [id number] [place] [address] Feb, [facility] [place] [facility] [address] [id number] [place] [address] Feb, [facility] [place] [facility] [address] [id number] [place] [address] Feb, [facility] [place] [facility] [address] [id number] [place] [address] Jan, [facility] [place] [facility] [address] [id number] [place] [address] Jan, [facility] [place] [facility] [address] [id number] [address] Dec, [facility] [place] [facility] [address] [id number] [address] Mar, [facility] [place] [facility] [address] [id number] [address] Feb, [facility] [place] [facility] [address] [id number] [address] 10 Feb, 2009 [facility] [place] [facility] [address] [id number] [address] Feb, [facility] [place] [facility] [address] [id number] [address] Jan, [facility] [place] [facility] [address] [facility] [id number] [address] 16 Dec, 2008 [facility] [place] [facility] [address] [id number] [address] Nov, [facility] [place] [facility] [address] [facility] [id number] [place] [address] Sep, [facility] [address] [facility] [id number] [address] August, [facility] [address] [facility] [id number] [address] May, [facility] [address] [facility] [id number] [place] [address] Mar, IMMUNIZATIONS No Known Immunizations SOCIAL HISTORY Never Assessed REASON FOR VISIT Lab results PLAN OF CARE VITAL SIGNS MEDICATIONS Medication Instructions Dosage Frequency Start Date End Date Duration Status Synthroid 125 MCG Orally Once a day [...] for psychiatric, harming, suicide ideat and attempts. [facility] [place], [place] last around 2006 Hospitalization History left foot swollen, stepped in [facility] 05/02/17
--- OUTSIDE RECORDS SUMMARY | 2018-06-21 20:26 | XMS REPORT ---
Author Author CORINNE BERGER [facility] Address [address] [place] [address] Care Team Providers Care Registered Vascular Technologist (Rvt) Name Role Phone CORINNE BERGER Unavailable PROBLEMS Type Condition ICD9-CM Code NQQ83-AO Code Onset Dates Condition Status SNOMED Code Problem COPD (chronic obstructive pulmonary disease) J44.9 Active 25841380 Problem Lumbago with sciatica, right side M54.41 Active [id number] Problem Panic disorder with agoraphobia F40.01 Active 06053485 Problem Other chronic pain G89.29 Active 20460559 Problem Degenerative joint disease M19.90 Active 297933822 Problem Morbid (severe) obesity due to excess calories E66.01 Active 52724855908409 Problem Depressive disorder, not elsewhere classified F32.9 Active 82688550 Problem Body mass index (BMI) of 40.0-44.9 in adult Z68.41 Active 815643506 Problem Mood disorder F39 Active 50223554 Problem Nicotine withdrawal F17.203 Active 97179937 Problem Acquired hypothyroidism E03.9 Active 328150135 Problem Chronic pain G89.29 Active 40761007 Problem Bipolar disease, chronic F31.9 Active 79450768 Problem 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 Active 967636556305101 Problem Right sciatic nerve pain M54.31 Active 88043154 Problem Hypothyroidism (acquired) E03.9 Active 07338370 Problem Fibrocystic changes of left breast N60.12 Active 57328655 Problem Opioid use disorder, moderate, dependence F11.20 Active 20076039 Problem Xanax use disorder, moderate F13.20 Active 665402045 Problem Pre-diabetes R73.03 Active 020008351 Problem Cigarette nicotine dependence without complication F17.210 Active 49823399 Problem Personality disorder F60.9 Active 67883669 Problem Lumbago with sciatica, left side M54.42 Active 967305141 Problem Methamphetamine use disorder, severe, 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 Active 38401270 Problem Psychosis, unspecified psychosis type F29 Active 75328647 ALLERGIES No Information ENCOUNTERS Encounter Location Date Diagnosis [facility] [id number] [place] [address] 04107- 7651 Mar, [facility] [id number] [place] [address] 30458- 6270 Mar, [facility] [address] 74653- 1789 Feb, Lumbago with sciatica, right side M54.41 [facility] [address] 58782- 2329 Feb, Acquired hypothyroidism E03.9 [facility] [address] 40304- 5481 Feb, Liver enzyme elevation R74.8 [facility] [address] 36893- 2940 09 Feb, 2018 Mood disorder F39 ; Nicotine withdrawal F17.203 ; Liver enzyme elevation R74.8 and Hypothyroidism (acquired) E03.9 [facility] [place] [address] 58910- 9433 Jan, Methamphetamine use disorder, severe, 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 ; Psychosis, unspecified psychosis type F29 ; Personality disorder F60.9 ; Opioid use disorder, moderate, dependence F11.20 ; Xanax use disorder, moderate F13.20 and BMI 45.0-49.9, adult Z68.42 [facility] [place] [id number] [place] [address] 41480- 4968 Jan, Liver enzyme elevation R74.8 and Hypothyroidism (acquired) E03.9 [facility] [place] [id number] [place] [address] 94913- 3932 27 Dec, 2017 BMI 40.0-44.9, adult Z68.41 ; Chronic pain G89.29 ; Degenerative joint disease M19.90 and Pre-diabetes R73.03 [facility] [place] [address] [place] [address] Dec, [facility] [id number] [place] [address] 58511- 5349 Dec, Methamphetamine use disorder, severe, 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 ; Psychosis, unspecified psychosis type F29 ; Personality disorder F60.9 ; Opioid use disorder, moderate, dependence F11.20 ; Xanax use disorder, moderate F13.20 and BMI 45.0-49.9, adult Z68.42 [facility] [address] 34271- 7460 Dec, [place] [address] 48623- 1270 Oct, Breast pain N64.4 ; Fibrocystic changes of left breast N60.12 and Bilateral otitis media with effusion H65.93 [facility] [address] 61831 -6953 Sep, 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 [facility] [id number] [place] [address] 56468- 8747 Sep, [place] [address] 60634- 4294 Sep, Methamphetamine use disorder, severe, 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 ; Psychosis, unspecified psychosis type F29 ; Personality disorder F60.9 ; Opioid use disorder, moderate, dependence F11.20 ; Xanax use disorder, moderate F13.20 and BMI 40.0-44.9, adult Z68.41 [facility] [id number] [place] [address] 79347- 3470 Sep, Depressive disorder, not elsewhere classified F32.9 and Psychosis, unspecified psychosis type F29 [facility] [id number] [place] [address] 41927- 6989 August, [facility] [place] [address] 38824- 8950 August, Depressive disorder, not elsewhere classified F32.9 and Psychosis, unspecified psychosis type F29 [facility] [id number] [place] [address] 30241- 6027 August, [facility] [id number] [place] [address] 31549- 9019 August, Lumbago with sciatica, right side M54.41 and Other chronic pain G89.29 [facility] [id number] [place] [address] 45606 -5932 Jul, Right sciatic nerve pain M54.31 [facility] [place] [id number] [place] [address] 24936- 7738 Jul, Acquired hypothyroidism E03.9 [facility] [place] [id number] [place] [address] 56410- 5798 Jul, Depressive disorder, not elsewhere classified F32.9 and Psychosis, unspecified psychosis type F29 [facility] [place] [id number] [place] [address] 50716- 1708 Jul, Acquired hypothyroidism E03.9 ; Lumbago with sciatica, right side M54.41 and Lumbar radiculopathy, acute M54.16 [facility] [address] [place] [address] 65708- 5146 Jul, Methamphetamine use disorder, severe, 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 ; Psychosis, unspecified psychosis type F29 ; Personality disorder F60.9 ; Opioid use disorder, moderate, dependence F11.20 ; Xanax use disorder, moderate F13.20 and BMI 40.0-44.9, adult Z68.41 [facility] [id number] [place] [address] 91118- 0636 Jun, Methamphetamine use disorder, severe, 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 ; Psychosis, unspecified psychosis type F29 ; Personality disorder F60.9 ; Opioid use disorder, moderate, dependence F11.20 and Xanax use disorder, moderate F13.20 [facility] [place] [id number] [place] [address] 28226- 3561 Jun, Depressive disorder, not elsewhere classified F32.9 and Psychosis, unspecified psychosis type F29 [place] [place] [id number] [place] [address] 86324- 7363 Jun, Lumbar radiculopathy, acute M54.16 [place] [place] [id number] [place] [address] 82089- 5291 Jun, Lumbar radiculopathy, acute M54.16 ; Strain of abdominal wall, initial encounter S39.011A and BMI 40.0-44.9, adult Z68.41 [facility] [place] [address] 57832- 1376 Jun, [place] [id number] [place] [address] 51064- 9307 May, [place] [address] 66610- 5276 May, Methamphetamine use disorder, severe, 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 ; Psychosis, unspecified psychosis type F29 ; Personality disorder F60.9 ; Opioid use disorder, moderate, dependence F11.20 and Xanax use disorder, moderate F13.20 [place] [place] [id number] [place] [address] 36818- 9211 May, [place] [id number] [place] [address] 81123- 1969 May, [place] [id number] [place] [address] 83591- 5515 May, Lumbago with sciatica, left side M54.42 ; Lumbago with sciatica, right side M54.41 ; Other chronic pain G89.29 ; Weight gain R63.5 ; Acquired hypothyroidism E03.9 and BMI 40.0-44.9, adult Z68.41 [place] [place] [id number] [place] [address] 75587- 1100 Apr, Cigarette nicotine dependence without complication F17.210 [facility] [id number] [place] [address] 63766- 3283 Apr, Acute bilateral low back pain without sciatica M54.5 [facility] [place] [address] 61163- 2764 Apr, Methamphetamine use disorder, severe, 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 ; Psychosis, unspecified psychosis type F29 ; Personality disorder F60.9 ; Opioid use disorder, moderate, dependence F11.20 and Xanax use disorder, moderate F13.20 [facility] [address] 07945 -3190 Apr, Wheezing R06.2 and Bronchitis J40 [place] [address] 50759- 0338 Apr, Bronchitis J40 ; Cigarette nicotine dependence without complication F17.210 and Bipolar disease, chronic F31.9 [place] [address] 66638- 6049 Mar, Acquired hypothyroidism E03.9 [place] [place] [address] 64571- 8242 Mar, Acquired hypothyroidism E03.9 [place] [address] 81821- 3308 Mar, Orthostatic hypotension I95.1 and Non-intractable vomiting with nausea, unspecified vomiting type R11.2 [place] [address] 00369- 9240 Mar, Strain of lumbar region, initial encounter S39.012A [place] [address] 36650- 4616 Mar, [facility] [address] 14166 -9029 Mar, Bronchitis J40 [place] [address] 76414- 5828 Mar, Degenerative joint disease M19.90 ; Elevated LFTs R79.89 ; Adenopathy R59.1 ; Drug use F19.90 ; Pre-diabetes R73.03 and COPD (chronic obstructive pulmonary disease) J44.9 [facility] [address] 90930 -7521 Feb, Left hand pain M79.642 and Contusion of left hand, initial encounter S60.222A [place] [address] 75487- 5270 Feb, Body aches R52 and Flu-like symptoms R68.[address] 92297- 3480 Jan, [address] 04879- 9499 Jan, Bipolar disease, chronic F31.9 ; Acquired hypothyroidism E03.9 and Encounter for immunization Z23 [facility] [address] 27514 -1356 Dec, Crushing injury of left wrist and hand, initial encounter S67.42XA [address] 25692- 6595 Sep, [address] 38937- 0257 Sep, Bipolar disease, chronic F31.9 ; Panic disorder with agoraphobia F40.01 and Proteinuria, unspecified type R80.9 [place] [address] 05408- 2173 August, [address] 09779- 8303 August, Degenerative joint disease M19.90 ; Left-sided chest wall pain R07.89 ; Bipolar disease, chronic F31.9 ; Type 2 diabetes mellitus without complication, without long-term current use of insulin E11.9 ; Acquired hypothyroidism E03.9 and Acute cystitis without hematuria N30.00 [facility] [id number] [place] [address] 52725- 6475 Mar, [facility] [id number] [place] [address] 19125- 3277 30 Feb, 2016 [facility] [id number] [place] [address] 35200 -7181 Feb, Right hand pain M79.641 [facility] [id number] [place] [address] 69993 -5493 11 Feb, 2016 Bronchitis J40 ; Acute non-recurrent pansinusitis J01.40 and Seasonal allergic rhinitis due to other allergic trigger J30.89 [facility] [id number] [place] [address] 98044- 7273 Dec, [facility] [id number] [place] [address] 78829 -4422 Mar, Left-sided chest wall pain R07.89 and Chronic pain G89.29 [facility] [id number] [place] [address] 25594- 4470 Jul, [facility] [id number] [place] [address] 11144- 3508 Jul, [facility] [id number] [place] [address] 27253- 7848 May, [facility] [id number] [place] [address] 53897- 5503 May, [facility] [id number] [place] [address] 32587- 3694 Apr, [facility] [address] 28516- 9108 Apr, [facility] [id number] [place] [address] 20821- 1203 Mar, [facility] [address] [place] [address]- 6676 16 Mar, 2014 [facility] [place] [facility] [address] [id number] [place] [address]- 6989 Feb, [facility] [place] [facility] [address] [id number] [place] [address]- 8659 Feb, [facility] [place] [facility] [address] [id number] [place] [address]- 7004 28 Jan, 2014 [facility] [place] [facility] [address] [id number] [place] [address]- 3374 28 Jan, 2014 [facility] [place] [facility] [address] [id number] [place] [address]- 4363 28 Jan, 2014 [facility] [place] [facility] [address] [id number] [place] [address]- 9639 28 Jan, 2014 [facility] [place] [facility] [address] [id number] [place] [address]- 9549 15 Jan, 2014 [facility] [place] [facility] [address] [id number] [place] [address]- 0259 15 Jan, 2014 [facility] [place] [facility] [address] [id number] [place] [address]- 3807 19 Dec, 2013 [facility] [place] [facility] [address] [id number] [place] [address]- 7432 19 Dec, 2013 [facility] [place] [facility] [address] [id number] [place] [address]- 8432 19 Dec, 2013 [facility] [place] [facility] [address] [id number], [place] [address]- 9382 19 Dec, 2013 [facility] [place] [facility] [address] [id number] [place] [address]- 9001 18 Dec, 2013 [facility] [place] [facility] [address] [id number] [place] [address]- 2079 18 Dec, 2013 [facility] [place] [facility] [address] [id number] [place] [address]- 5398 16 Dec, 2013 [facility] [place] [facility] [address] [id number] [place] [address]- 6260 16 Dec, 2013 [facility] [place] [facility] [address] [id number] [place] [address]- 7568 Sep, [facility] [place] [facility] [address] [id number] [place] [address]- 4588 17 Sep, 2013 [facility] [place] [facility] [address] [id number] [place] [address]- 5200 15 Jul, 2013 [facility] [place] [facility] [address] [id number] [place] [address]- 6375 15 Jul, 2013 [facility] [place] [facility] [address] [id number] [place] [address]- 4361 Jul, [facility] [place] [facility] [address] [id number] [place] [address]- 5416 Jul, [facility] [place] [facility] [address] [id number] [place] [address]- 9968 Jul, [facility] [place] [facility] [address] [id number] [place] [address]- 7458 Jul, [facility] [place] [facility] [address] [id number] [place] [address]- 2784 Jul, [facility] [place] [facility] [address] [id number] [place] [address]- 3853 Jul, [facility] [place] [facility] [address] [id number] [place] [address]- 7094 Jun, [facility] [place] [facility] [address] [id number] [place] [address]- 0685 Jun, [facility] [place] [facility] [address] [id number] [place] [address]- 7242 May, [facility] [place] [facility] [address] [id number] [place] [address]- 7940 May, [facility] [place] [facility] [address] [id number], [place] [address]- 8152 May, [facility] [place] [facility] [address] [id number] [place] [address]- 8180 May, [facility] [place] [facility] [address] [id number] [place] [address]- 8492 Apr, [facility] [place] [facility] [address] [facility] [id number] [place] [address]- 3668 Apr, [facility] [place] [facility] [address] [id number] [place] [address]- 9799 Mar, [facility] [place] [facility] [address] [id number] [place] [address]- 1104 Mar, [facility] [place] [facility] [address] [facility] [id number] [place] [address]- 8944 Feb, [facility] [place] [facility] [address] [facility] [id number], [place] [address]- 7608 Feb, [facility] [place] [facility] [address] [facility] [id number], [place] [address]- 4725 Feb, [facility] [place] [facility] [address] [facility] [id number], [place] [address]- 9722 Feb, [facility] [place] [facility] [address] [facility] [id number], [place] [address]- 7243 Jan, [facility] [place] [facility] [address] [facility] [id number], [place] [address]- 1813 Jan, [facility] [place] [facility] [address] [facility] [id number], [place] [address]- 6087 Jan, [facility] [place] [facility] [address] [id number], [place] [address]- 0273 Jan, [facility] [place] [facility] [address] [facility] [id number], [place] [address]- 3133 Jan, [facility] [place] [facility] [address] [facility] [id number], [place] [address]- 7632 Dec, [facility] [place] [facility] [address] [id number] [place] [address]- 3816 Dec, [facility] [address] [id number] [place] [address]- 8111 Nov, [facility] [place] [facility] [address] [id number] [place] [address]- 9856 Sep, [facility] [address] [id number] [place] [address]- 9036 August, [facility] [address] [id number] [place] [address]- 9335 August, [facility] [address] [id number] [place] [address]- 0734 Jul, [facility] [address] [id number] [place] [address]- 1813 Jul, [facility] [address] [id number] [place] [address]- 9700 Jul, [facility] [address] [id number] [place] [address]- 9352 Jul, [facility] [address] [id number] [place] [address]- 4101 Jul, [facility] [address] [id number] [place] [address]- 9925 Jul, [facility] [place] [facility] [address] [id number] [place] [address]- 0977 Jul, [facility] [address] [id number] [place] [address]- 5799 Jun, [facility] [place] [facility] [address] [id number] [place] [address]- 1615 Jun, [facility] [place] [facility] [address] [id number] [place] [address]- 2546 May, [facility] [place] [facility] [address] [id number] [place] [address]- 4288 Apr, [facility] [place] [facility] [address] [id number] [place] [address]- 4349 Apr, [facility] [place] [facility] [address] [id number] [place] [address]- 3677 Mar, [facility] [place] [facility] [address] [id number] [place] [address]- 2701 Mar, [facility] [place] [facility] [address] [id number] [place] [address]- 5819 Mar, [facility] [place] [facility] [address] [id number] [place] [address]- 7619 Feb, [facility] [place] [facility] [address] [id number] [place] [address]- 5760 Feb, [facility] [place] [facility] [address] [id number] [place] [address]- 7218 Feb, [facility] [place] [facility] [address] [id number] [place] [address]- 0163 Feb, [facility] [place] [facility] [address] [id number] [place] [address]- 9058 Feb, [facility] [place] [facility] [address] [id number] [place] [address]- 1451 Feb, [facility] [place] [facility] [address] [id number], [place] [address]- 3319 16 Feb, 2012 [facility] [place] [facility] [address] [id number], [place] [address]- 0715 16 Feb, 2012 [facility] [place] [facility] [address] [id number] [place] [address]- 9406 14 Feb, 2012 [facility] [place] [facility] [address] [id number], [place] [address]- 5620 Feb, [facility] [place] [facility] [address] [id number], [place] [address]- 2158 Feb, [facility] [place] [facility] [address] [id number] [place] [address]- 5932 27 Dec, 2011 [facility] [address] [id number] [place] [address]- 8046 07 Dec, 2011 [facility] [place] [facility] [address] [id number] [place] [address]- 0456 30 Nov, 2011 [facility] [place] [facility] [address] [id number] [place] [address]- 4494 Nov, [facility] [place] [facility] [address] [id number] [place] [address]- 5305 Oct, [facility] [place] [facility] [id number] [place] [address], [place] [address]- 9800 Oct, [facility] [place] [facility] [address] [id number] [place] [address]- 5856 Sep, [facility] [place] [facility] [address] [id number] [place] [address]- 2233 28 May, 2011 [facility] [place] [facility] [address] [id number] [place] [address]- 9293 May, [facility] [place] [facility] [id number] [place] [address]- 8124 May, [facility] [address] [facility] [id number] [place] [address] Apr, [facility] [place] [facility] [address] [id number] [place] [address] Mar, [facility] [place] [facility] [address] [id number] [place] [address] Mar, [facility] [place] [facility] [address] [id number] [place] [address] Feb, [facility] [place] [facility] [address] [id number] [place] [address] Feb, [facility] [place] [facility] [address] [id number] [place] [address] Feb, [facility] [address] [id number] [address] 14 Jan, 2011 [facility] [address], [place] [address] 14 Jan, 2011 [facility] [address] [id number], [place] [address] 19 Dec, 2010 [facility] [address], [place] [address] Mar, [facility] [address], [place] [address] Feb, [facility] [id number], [place] [address] Feb, [facility] [id number], [place] [address] Feb, [facility] [id number] [place] [address] Jan, [facility] [address], [place] [address] Dec, [facility] [address], [place] [address] Nov, [facility] [address], [place] [address] Sep, [facility] [address], [place] [address] August, [facility] [address] [id number], [place] [address] May, [facility] [address], [place] [address] Mar, IMMUNIZATIONS No Known Immunizations SOCIAL HISTORY Never Assessed REASON FOR VISIT medication question PLAN OF CARE VITAL SIGNS MEDICATIONS Medication Instructions Dosage Frequency Start Date End Date Duration Status Diclofenac Sodium 75 MG Orally Twice a day 1 tablet with food or milk 12h 10 Aug, 2017 30 day(s) Active RESULTS No Results PROCEDURES [...] suicide ideat and attempts. Rios Shepherd, Lacie, Alba last around 2006 Hospitalization History left foot swollen, stepped in [facility] 05/02/17
--- OUTSIDE RECORDS SUMMARY | 2018-06-21 20:26 | XMS REPORT ---
Author Author CORINNE BERGER [facility] Address [address] [place] [address] Care Team Providers Care Saddle Maker Name Role Phone CORINNE BERGER Unavailable PROBLEMS Type Condition ICD9-CM Code [id number] Code Onset Dates Condition Status SNOMED Code Problem COPD (chronic obstructive pulmonary disease) J44.9 Active 66192494 Problem Lumbago with sciatica, right side M54.41 Active 908022202101214 Problem Panic disorder with agoraphobia F40.01 Active 87785275 Problem Other chronic pain G89.29 Active 79753255 Problem Degenerative joint disease M19.90 Active 857159613 Problem Morbid (severe) obesity due to excess calories E66.01 Active 68555800425962 Problem Depressive disorder, not elsewhere classified F32.9 Active 72314971 Problem Body mass index (BMI) of 40.0-44.9 in adult Z68.41 Active 282979837 Problem Mood disorder F39 Active 27362759 Problem Nicotine withdrawal F17.203 Active 12049406 Problem Acquired hypothyroidism E03.9 Active 653508756 Problem Chronic pain G89.29 Active 30794548 Problem Bipolar disease, chronic F31.9 Active 27744945 Problem 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 Active 962748580791325 Problem Right sciatic nerve pain M54.31 Active 14051843 Problem Hypothyroidism (acquired) E03.9 Active 19053750 Problem Fibrocystic changes of left breast N60.12 Active 82256872 Problem Opioid use disorder, moderate, dependence F11.20 Active 98750596 Problem Xanax use disorder, moderate F13.20 Active 648756014 Problem Pre-diabetes R73.03 Active 828316548 Problem Cigarette nicotine dependence without complication F17.210 Active 53410044 Problem Personality disorder F60.9 Active 67743014 Problem Lumbago with sciatica, left side M54.42 Active 459226761 Problem Methamphetamine use disorder, severe, 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 Active 84753807 Problem Psychosis, unspecified psychosis type F29 Active 60486904 ALLERGIES Substance Reaction Event Type Date Status Tramadol HCl nausea and vomiting Drug Allergy Feb, Active Penicillin V Potassium anaphylaxis Drug Allergy Feb, Active Naproxen swelling Drug Allergy Feb, Active Keflex anaphylaxis Drug Allergy Feb, Active Ibuprofen nausea and vomitting Drug Allergy Feb, Active Aspirin hives Drug Allergy Feb, Active ENCOUNTERS Encounter Location Date Diagnosis [address] [address]2020[address]- [address] Mar, [place] [address] [address] Mar, [address] [address] 12 Feb, 2018 Lumbago with sciatica, right side M54.[address] [address]- [address] Feb, Acquired hypothyroidism E03.[address] [address]- 0[address] Feb, Liver enzyme elevation R74.[address] 19[address]- 9[address] 09 Feb, 2018 Mood disorder F39 ; Nicotine withdrawal F17.203 ; Liver enzyme elevation R74.8 and Hypothyroidism (acquired) E03.9 [place] [id number] [place] [address] 37660- 3740 04 Jan, 2018 Methamphetamine use disorder, severe, 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 ; Psychosis, unspecified psychosis type F29 ; Personality disorder F60.9 ; Opioid use disorder, moderate, dependence F11.20 ; Xanax use disorder, moderate F13.20 and BMI 45.0-49.9, adult Z68.42 [place] [id number] [place] [address] 00832- 8472 03 Jan, 2018 Liver enzyme elevation R74.8 and Hypothyroidism (acquired) E03.9 [place] [id number] [place] [address] Dec, BMI 40.0-44.9, adult Z68.41 ; Chronic pain G89.29 ; Degenerative joint disease M19.90 and Pre-diabetes R73.03 [facility] [address] [place] [id number] [place] [address] 27537- 1196 Dec, [place] [address] [address]- [address] Dec, Methamphetamine use disorder, severe, 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 ; Psychosis, unspecified psychosis type F29 ; Personality disorder F60.9 ; Opioid use disorder, moderate, dependence F11.20 ; Xanax use disorder, moderate F13.20 and BMI 45.0-49.9, adult Z68.42 [place] [address] [place] [id number] [place] [address] 82700- 9666 Dec, [place] [address] 0[address]66- [address] Oct, Breast pain N64.4 ; Fibrocystic changes of left breast N60.12 and Bilateral otitis media with effusion H65.93 [facility] [address] [place] [id number] [place] [address] 80423 -0160 Sep, 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 [facility] [address] [place] [id number] [place] [address] 49993- 7518 Sep, [place] [address] [place] [id number] [place] [address] 50872- 9655 Sep, Methamphetamine use disorder, severe, 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 ; Psychosis, unspecified psychosis type F29 ; Personality disorder F60.9 ; Opioid use disorder, moderate, dependence F11.20 ; Xanax use disorder, moderate F13.20 and BMI 40.0-44.9, adult Z68.41 [facility] [address] [place] [id number] [place] [address] 05371- 6335 Sep, Depressive disorder, not elsewhere classified F32.9 and Psychosis, unspecified psychosis type F29 [facility] [address] [place] [id number] [place] [address] 57308- 0906 August, [facility] [address] [place] [id number] [place] [address] 35391- 7983 August, Depressive disorder, not elsewhere classified F32.9 and Psychosis, unspecified psychosis type F29 [place] [address] [place] [id number] [place] [address] 15926- 9119 August, [place] [address] [place] [id number] [place] [address] 42257- 3856 August, Lumbago with sciatica, right side M54.41 and Other chronic pain G89.29 [facility] [address] [place] [id number] [place] [address] 36452 -0310 Jul, Right sciatic nerve pain M54.31 [place] [address] 39062- 6230 Jul, Acquired hypothyroidism E03.9 [place] [address] [place] [id number] [place] [address] 34308- 2578 Jul, Depressive disorder, not elsewhere classified F32.9 and Psychosis, unspecified psychosis type F29 [place] [address] [place] [id number] [place] [address] 86586- 7916 Jul, Acquired hypothyroidism E03.9 ; Lumbago with sciatica, right side M54.41 and Lumbar radiculopathy, acute M54.16 [facility] [address] [place] [id number] [place] [address] 18394- 6175 Jul, Methamphetamine use disorder, severe, 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 ; Psychosis, unspecified psychosis type F29 ; Personality disorder F60.9 ; Opioid use disorder, moderate, dependence F11.20 ; Xanax use disorder, moderate F13.20 and BMI 40.0-44.9, adult Z68.41 [place] [address] [place] [id number] [place] [address] 12506- 8078 Jun, Methamphetamine use disorder, severe, 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 ; Psychosis, unspecified psychosis type F29 ; Personality disorder F60.9 ; Opioid use disorder, moderate, dependence F11.20 and Xanax use disorder, moderate F13.20 [place] [address] [place] [id number] [place] [address] 78692- 9194 Jun, Depressive disorder, not elsewhere classified F32.9 and Psychosis, unspecified psychosis type F29 [place] [address] [place] [id number] [place] [address] 42794- 7270 Jun, Lumbar radiculopathy, acute M54.[address] 10496- 4735 Jun, Lumbar radiculopathy, acute M54.16 ; Strain of abdominal wall, initial encounter S39.011A and BMI 40.0-44.9, adult Z68.[address] 97815- 3107 Jun, [place] [address] 64375- 5492 May, [place] [address] 85337- 1477 May, Methamphetamine use disorder, severe, 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 ; Psychosis, unspecified psychosis type F29 ; Personality disorder F60.9 ; Opioid use disorder, moderate, dependence F11.20 and Xanax use disorder, moderate F13.20 [place] [address] [place] [id number] [place] [address] 56828- 0815 May, [place] [address] 15932- 0779 May, [place] [address] [place] [id number] [place] [address] 12171- 5296 May, Lumbago with sciatica, left side M54.42 ; Lumbago with sciatica, right side M54.41 ; Other chronic pain G89.29 ; Weight gain R63.5 ; Acquired hypothyroidism E03.9 and BMI 40.0-44.9, adult Z68.41 [place] [address] [place] [id number] [place] [address] 01330- 362 Apr, Cigarette nicotine dependence without complication F17.210 [place] [address] 34498- 9563 Apr, Acute bilateral low back pain without sciatica M54.5 [place] [address] 78230- 3645 Apr, Methamphetamine use disorder, severe, 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 ; Psychosis, unspecified psychosis type F29 ; Personality disorder F60.9 ; Opioid use disorder, moderate, dependence F11.20 and Xanax use disorder, moderate F13.20 [facility] [address] 77516 -7856 Apr, Wheezing R06.2 and Bronchitis J40 [place] [address] 48215- 6132 Apr, Bronchitis J40 ; Cigarette nicotine dependence without complication F17.210 and Bipolar disease, chronic F31.9 [place] [address] [place] [id number] [place] [address] 64624- 4829 Mar, Acquired hypothyroidism E03.9 [place] [address] [place] [id number] [place] [address] 15443- 2923 Mar, Acquired hypothyroidism E03.9 [place] [address] 28341- 3714 Mar, Orthostatic hypotension I95.1 and Non-intractable vomiting with nausea, unspecified vomiting type R11.2 [place] [address] [place] [id number] [place] [address] 88092- 0850 Mar, Strain of lumbar region, initial encounter S39.012A [place] [address] 02067- 3103 Mar, [facility] [address] [place] [id number] [place] [address] 90889 -4267 Mar, Bronchitis J40 [place] [address] 22284- 1427 Mar, Degenerative joint disease M19.90 ; Elevated LFTs R79.89 ; Adenopathy R59.1 ; Drug use F19.90 ; Pre-diabetes R73.03 and COPD (chronic obstructive pulmonary disease) J44.9 [facility] [address] 22828 -0550 Feb, Left hand pain M79.642 and Contusion of left hand, initial encounter S60.222A [address] 55835- 5413 Feb, Body aches R52 and Flu-like symptoms R68.[address] 23673- 6260 Jan, [address] 75257- 2938 Jan, Bipolar disease, chronic F31.9 ; Acquired hypothyroidism E03.9 and Encounter for immunization Z23 [facility] [address] [place] [id number] [place] [address] 96146 -6594 Dec, Crushing injury of left wrist and hand, initial encounter S67.42XA [place] [address] [place] [id number] [place] [address] 57414- 0196 Sep, [address] 72559- 5731 Sep, Bipolar disease, chronic F31.9 ; Panic disorder with agoraphobia F40.01 and Proteinuria, unspecified type R80.9 [place] [id number] [place] [address] 32571- 1913 August, [place] [address] [place] [address]- 0332 August, Degenerative joint disease M19.90 ; Left-sided chest wall pain R07.89 ; Bipolar disease, chronic F31.9 ; Type 2 diabetes mellitus without complication, without long-term current use of insulin E11.9 ; Acquired hypothyroidism E03.9 and Acute cystitis without hematuria N30.00 [place] [address] 72523- 5659 07 Mar, 2016 [facility] [address] 98373- 4010 30 Feb, 2016 [facility] [place] [address] 78681 -4270 Feb, Right hand pain M79.641 [facility] [place] [address] 14442 -5121 Feb, Bronchitis J40 ; Acute non-recurrent pansinusitis J01.40 and Seasonal allergic rhinitis due to other allergic trigger J30.89 [place] [address] [place] [id number] [place] [address] 87190- 9825 Dec, [facility] [place] [address] [place] [id number] [place] [address] 86772 -2470 Mar, Left-sided chest wall pain R07.89 and Chronic pain G89.29 [place] [address] [place] [id number] [place] [address] 79211- 7814 Jul, [place] [address] 75621- 0395 Jul, [place] [address] 64957- 3829 May, [place] [address] [place] [id number] [place] [address] 17341- 8566 May, [place] [address] [place] [id number] [place] [address] 25850- 7215 Apr, [place] [address] [facility] [id number] [place] [address]- 6932 Apr, [facility] [place] [facility] [address] [id number] [place] [address]- 3950 Mar, [facility] [place] [facility] [address] [id number] [place] [address]32 Mar, [facility] [place] [facility] [address] [id number] [place] [address]- 3259 Feb, [facility] [place] [facility] [address] [id number] [place] [address]- 5832 Feb, [facility] [place] [facility] [address] [id number] [place] [address]- 3252 Jan, [facility] [place] [facility] [address] [id number] [place] [address]- 9132 Jan, [facility] [place] [facility] [address] [id number] [place] [address]- 6580 Jan, [facility] [place] [facility] [address] [id number] [place] [address]- 3176 28 Jan, 2014 [facility] [place] [facility] [address] [id number] [place] [address]- 9452 15 Jan, 2014 [facility] [place] [facility] [address] [id number] [place] [address]- 0434 15 Jan, 2014 [facility] [place] [facility] [address] [id number] [place] [address]- 7583 19 Dec, 2013 [facility] [place] [facility] [address] [id number] [place] [address]- 0376 19 Dec, 2013 [facility] [place] [facility] [address] [id number] [place] [address]- 9951 19 Dec, 2013 [facility] [place] [facility] [address] [id number] [place] [address]- 0438 19 Dec, 2013 [facility] [place] [facility] [address] [id number] [place] [address]- 9113 18 Dec, 2013 [facility] [place] [facility] [address] [id number] [place] [address]- 9818 18 Dec, 2013 [facility] [place] [facility] [address] [id number] [place] [address]- 4230 16 Dec, 2013 [facility] [place] [facility] [address] [id number] [place] [address]- 4343 16 Dec, 2013 [facility] [place] [facility] [address] [id number] [place] [address]- 8469 17 Sep, 2013 [facility] [place] [facility] [address] [id number] [place] [address]- 1484 17 Sep, 2013 [facility] [place] [facility] [address] [id number] [place] [address]- 1226 15 Jul, 2013 [facility] [place] [facility] [address] [id number] [place] [address]- 2539 15 Jul, 2013 [facility] [place] [facility] [address] [id number] [place] [address]- 7022 10 Jul, 2013 [facility] [place] [facility] [address] [id number] [place] [address]- 0053 Jul, [facility] [place] [facility] [address] [id number] [place] [address]- 4311 Jul, [facility] [place] [facility] [address] [id number] [place] [address]- 8555 Jul, [facility] [place] [facility] [address] [id number] [place] [address]- 8552 Jul, [facility] [place] [facility] [address] [id number] [place] [address]- 7141 Jul, [facility] [place] [facility] [address] [id number] [place] [address]- 7903 Jun, [facility] [place] [facility] [address] [id number] [place] [address]- 3440 Jun, [facility] [place] [facility] [address] [id number] [place] [address]- 7863 May, [facility] [address] [id number] [place] [address]- 9617 May, [facility] [place] [facility] [address] [id number] [place]- 9716 May, [facility] [place] [facility] [address] [id number] [place] [address]- 5855 May, [facility] [place] [facility] [address] [id number] [place] [address]- 3714 Apr, [facility] [place] [facility] [address] [id number] [place] [address]- 0042 Apr, [facility] [place] [facility] [address] [id number] [place] [address]- 2505 Mar, [facility] [place] [facility] [address] [id number] [place] [address]- 5434 Mar, [facility] [place] [facility] [address] [id number] [place] [address]- 4625 Feb, [facility] [place] [facility] [address] [facility] [id number] [place] [address]- 7232 Feb, [facility] [place] [facility] [address] [facility] [id number] [place] [address]- 9643 Feb, [facility] [place] [facility] [address] [id number] [place] [address]- 8252 Feb, [facility] [place] [facility] [address] [id number] [place] [address]- 0895 Jan, [facility] [place] [facility] [address] [id number] [place] 6369 Jan, [facility] [place] [facility] [address] [facility] [id number] [place] [address]- 2106 Jan, [facility] [place] [facility] [address] [facility] [id number] [place] [address]- 3644 Jan, [facility] [place] [facility] [address] [id number] [place] [address]- 5993 Jan, [facility] [address] [id number] [place] [address]- 6771 Dec, [facility] [address] [id number] [place] [address]- 1555 Dec, [facility] [address] [id number] [place] [address]- 2938 Nov, [facility] [address] [id number] [place] [address]- 6046 Sep, [facility] [address] [id number] [place] [address]- 8425 August, [facility] [address] [id number] [place] [address]- 5087 August, [facility] [address] [id number] [place] [address]- 5191 Jul, [facility] [address] [id number] [place] [address]- 3862 Jul, [facility] [address] [id number] [place] [address]- 3157 Jul, [facility] [address] [id number] [place] [address]- 1531 Jul, [facility] [place] [facility] [address] [id number] [place] [address]- 1061 Jul, [facility] [place] [facility] [address] [id number] [place] [address]- 7796 Jul, [facility] [place] [facility] [address] [id number] [place] [address]- 5059 Jul, [facility] [place] [facility] [address] [id number] [place] [address]- 9519 Jun, [facility] [place] [facility] [address] [id number] [place] [address]- 3606 Jun, [facility] [place] [facility] [address] [id number] [place] [address]- 6767 May, [facility] [place] [facility] [address] [id number] [place] [address]- 2540 Apr, [facility] [place] [facility] [address] [facility] [id number] [place] [address]- 0007 Apr, [facility] [place] [facility] [address] [id number] [place] [address]- 6964 Mar, [facility] [place] [facility] [address] [id number] [place] [address]- 7037 Mar, [facility] [place] [facility] [address] [id number] [place] [address]- 3190 Mar, [facility] [place] [facility] [address] [facility] [id number] [place] [address]- 4486 24 Feb, 2012 [facility] [place] [facility] [address] [id number] [place] [address]- 5751 24 Feb, 2012 [facility] [place] [facility] [address] [id number] [place] [address]- 4494 24 Feb, 2012 [facility] [place] [facility] [address] [facility] [id number] [place] [address]- 2818 24 Feb, 2012 [facility] [place] [facility] [address] [id number] [place] [address]- 8047 19 Feb, 2012 [facility] [place] [facility] [address] [id number] [place] [address]- 1988 19 Feb, 2012 [facility] [place] [facility] [address] [id number] [place] [address]- 8942 16 Feb, 2012 [facility] [place] [facility] [address] [id number] [place] [address]- 5910 16 Feb, 2012 [facility] [place] [facility] [address] [facility] [id number] [place] [address]- 6102 14 Feb, 2012 [facility] [place] [facility] [address] [id number] [place] [address]- 3019 08 Feb, 2012 [facility] [place] [facility] [address] [id number] [place] [address]- 5423 08 Feb, 2012 [facility] [place] [facility] [address] [id number] [place] [address]- 2879 27 Dec, 2011 [facility] [place] [facility] [address] [id number] [place] [address]- 1457 07 Dec, 2011 [facility] [place] [facility] [address] [id number] [place] [address]- 1667 30 Nov, 2011 [facility] [place] [facility] [address] [id number] [place] [address]- 0547 Nov, [facility] [place] [facility] [address] [id number] [place] [address]- 2398 Oct, [facility] [place] [facility] [address] [id number] [place] [address]- 6630 Oct, [facility] [place] [facility] [address] [id number] [place] [address]- 2055 Sep, [facility] [place] [facility] [address] [id number] [place] [address]- 7348 May, [facility] [place] [facility] [address] [id number] [place] [address] May, [facility] [place] [facility] [address] [id number] [place] [address] May, [facility] [place] [facility] [address] [id number] [place] [address] Apr, [facility] [place] [facility] [address] [id number] [place] [address] Mar, [facility] [place] [facility] [address] [id number] [place] [address] Mar, [facility] [place] [facility] [address] [id number] [place] [address] Feb, [facility] [place] [facility] [address] [id number] [place] [address] Feb, [facility] [place] [facility] [address] [id number] [place] [address] Feb, [facility] [place] [facility] [address] [facility] [id number] [place] [address] 14 Jan, 2011 [facility] [place] [facility] [address] [id number] [place] [address] 14 Jan, 2011 [facility] [place] [facility] [address] [id number] [place] [address] 19 Dec, 2010 [facility] [place] [facility] [address] [facility] [id number] [place] [address] Mar, [facility] [place] [facility] [address] [facility] [id number] [place] [address] Feb, [facility] [place] [facility] [address] [id number] [place] [address] Feb, [facility] [place] [facility] [address] [facility] [id number] [place] [address] Feb, [facility] [place] [facility] [address] [facility] [id number] [place] [address] Jan, [facility] [place] [facility] [address] [facility] [id number] [place] [address] 16 Dec, 2008 [facility] [place] [facility] [address] [id number] [place] [address] Nov, [facility] [place] [facility] [address] [id number] [place] [address] Sep, [facility] [place] [facility] [address] [facility] [id number] [place] [address] August, [facility] [place] [facility] [address] [facility] [id number] [place] [address] May, [facility] [place] [facility] [address] [facility] [id number] [place] [id number] Mar, IMMUNIZATIONS No Known Immunizations SOCIAL HISTORY Never Assessed REASON FOR VISIT Lab review PLAN OF CARE Activity Details Follow Up 4 Weeks Reason:mood disorder Pending Test TSH VITAL SIGNS Height 63 in 2018-02-16 Weight 259 lbs 2018-02-16 Heart Rate 72 bpm 2018-02-16 Respiratory Rate 20 2018-02-16 BMI 45.87 kg/m2 2018-02-16 Blood pressure systolic 110 mmHg 2018-02-16 Blood pressure diastolic 64 mmHg 2018-02-16 MEDICATIONS Medication Instructions Dosage Frequency Start Date End Date Duration Status Cyclobenzaprine HCl 10 mg Orally 2 times a day 1 tablet as needed 12h Dec, Active Nabumetone 500 mg Orally Twice a day 1 tablet 12h Dec, Mar, 30 day(s) Active Active HydrOXYzine HCl 50 MG TAKE TWO (2) TABLETS BY MOUTH THREE (3) TIMES DAILY NEEDED FOR ANXIETY 30 Active Synthroid 50 mcg Orally Once a day 1 tablet on an empty stomach in the morning 24h August, Active Prozac 20 mg Orally Once a day 1 capsule 24h Feb, 30 day(s) Active Seroquel 300 MG Orally Once a day 1 tablet 24h Active ProAir HFA 108 (90 Base) MCG/ACT Inhalation every 6 hrs 2 puffs as needed 6h Mar, Active HydrOXYzine Pamoate 100 MG Orally TID prn 1 capsule Active RESULTS No Results PROCEDURES Procedure Date Ordered Result Body Site LAB [facility] Feb [facility], 2018 INSTRUCTIONS MEDICATIONS ADMINISTERED No Known Medications [...] left foot swollen, stepped in [facility] ER 05/02/17
--- OUTSIDE RECORDS SUMMARY | 2018-06-21 20:27 | XMS REPORT ---
Author Author CORINNE BERGER Organization [facility] Address [address] [place] [address] Care Team Providers Care Exchange Architect Name Role Phone CORINNE BERGER Unavailable PROBLEMS Type Condition ICD9-CM Code YEL62-FS Code Onset Dates Condition Status SNOMED Code Problem Lumbago with sciatica, right side M54.41 Active [id number] Problem Body mass index (BMI) of 40.0-44.9 in adult Z68.41 Active 458249833 Problem Other chronic pain G89.29 Active 77116369 Problem Hypothyroidism (acquired) E03.9 Active 81785217 Problem Degenerative joint disease M19.90 Active 651788773 Problem Fibrocystic changes of left breast N60.12 Active 66699075 Problem Panic disorder with agoraphobia F40.01 Active 88954538 Problem COPD (chronic obstructive pulmonary disease) J44.9 Active 31695354 Problem Depressive disorder, not elsewhere classified F32.9 Active 81408284 Problem Morbid (severe) obesity due to excess calories E66.01 Active 09720625555913 Problem 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 Active 513412824186597 Problem Right sciatic nerve pain M54.31 Active 29339077 Problem Pre-diabetes R73.03 Active 698503429 Problem Cigarette nicotine dependence without complication F17.210 Active 00764320 Problem Chronic pain G89.29 Active 74343714 Problem Acquired hypothyroidism E03.9 Active 513047808 Problem Opioid use disorder, moderate, dependence F11.20 Active 92303906 Problem Psychosis, unspecified psychosis type F29 Active 56615747 Problem Xanax use disorder, moderate F13.20 Active 822749723 Problem Personality disorder F60.9 Active 14517821 Problem Bipolar disease, chronic F31.9 Active 05983147 Problem Methamphetamine use disorder, severe, 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 Active 60468210 Problem Lumbago with sciatica, left side M54.42 Active 746862772 ALLERGIES No Information ENCOUNTERS Encounter Location Date Diagnosis [place] [id number] [place] [address]51- 9151 Mar, [place] [address] [address]- [address] Jan, [place] [address] 98426- 5168 Jan, Methamphetamine use disorder, severe, 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 ; Psychosis, unspecified psychosis type F29 ; Personality disorder F60.9 ; Opioid use disorder, moderate, dependence F11.20 ; Xanax use disorder, moderate F13.20 and BMI 45.0-49.9, adult Z68.[address] [address]- 3[address] Jan, Liver enzyme elevation R74.8 and Hypothyroidism (acquired) E03.[address] [address]34- 4[address] 27 Dec, 2017 BMI 40.0-44.9, adult Z68.41 ; Chronic pain G89.29 ; Degenerative joint disease M19.90 and Pre-diabetes R73.03 [place] [id number] [place] [address] 75654- 2322 Dec, [address] [address]- 1333 Dec, Methamphetamine use disorder, severe, 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 ; Psychosis, unspecified psychosis type F29 ; Personality disorder F60.9 ; Opioid use disorder, moderate, dependence F11.20 ; Xanax use disorder, moderate F13.20 and BMI 45.0-49.9, adult Z68.[address] [address]38- 4038 Dec, [address] 83[address]- 0465 Oct, Breast pain N64.4 ; Fibrocystic changes of left breast N60.12 and Bilateral otitis media with effusion H65.93 [facility] [id number] [place] [address] 8[address]88 -9037 Sep, 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 [facility] [id number] [place] [address] 04880- 1197 Sep, [place] [address] 04511- 2048 Sep, Methamphetamine use disorder, severe, 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 ; Psychosis, unspecified psychosis type F29 ; Personality disorder F60.9 ; Opioid use disorder, moderate, dependence F11.20 ; Xanax use disorder, moderate F13.20 and BMI 40.0-44.9, adult Z68.41 [place] [id number] [place] [address] 93837- 3512 Sep, Depressive disorder, not elsewhere classified F32.9 and Psychosis, unspecified psychosis type F29 [place] [address] [address]- [address] August, [place] [address] 96801- 8764 August, Depressive disorder, not elsewhere classified F32.9 and Psychosis, unspecified psychosis type F29 [place] [id number] [place] [address] 60408- 5467 August, [place] [address] 60332- 9683 August, Lumbago with sciatica, right side M54.41 and Other chronic pain G89.29 [facility] [id number] [place] [address] 82722 -9240 Jul, Right sciatic nerve pain M54.31 [facility] [id number] [place] [address] 71268- 0131 Jul, Acquired hypothyroidism E03.9 [facility] [address] 60438- 5110 Jul, Depressive disorder, not elsewhere classified F32.9 and Psychosis, unspecified psychosis type F29 [place] [id number] [place] [address] 29391- 8104 Jul, Acquired hypothyroidism E03.9 ; Lumbago with sciatica, right side M54.41 and Lumbar radiculopathy, acute M54.16 [place] [id number] [place] [address] 57114- 4955 Jul, Methamphetamine use disorder, severe, 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 ; Psychosis, unspecified psychosis type F29 ; Personality disorder F60.9 ; Opioid use disorder, moderate, dependence F11.20 ; Xanax use disorder, moderate F13.20 and BMI 40.0-44.9, adult Z68.41 [place] [id number] [place] [address] 43385- 2995 Jun, Methamphetamine use disorder, severe, 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 ; Psychosis, unspecified psychosis type F29 ; Personality disorder F60.9 ; Opioid use disorder, moderate, dependence F11.20 and Xanax use disorder, moderate F13.20 [place] [id number] [place] [address] 83040- 1625 Jun, Depressive disorder, not elsewhere classified F32.9 and Psychosis, unspecified psychosis type F29 [place] [id number] [place] [address] 80590- 0651 Jun, Lumbar radiculopathy, acute M54.16 [place] [id number] [place] [address] 77736- 4385 Jun, Lumbar radiculopathy, acute M54.16 ; Strain of abdominal wall, initial encounter S39.011A and BMI 40.0-44.9, adult Z68.41 [place] [id number] [place] [address] 32833- 4689 Jun, [place] [id number] [place] [address] 09178- 1856 May, [place] [address] 96553- 2080 May, Methamphetamine use disorder, severe, 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 ; Psychosis, unspecified psychosis type F29 ; Personality disorder F60.9 ; Opioid use disorder, moderate, dependence F11.20 and Xanax use disorder, moderate F13.20 [place] [address] 14016- 9543 May, [place] [address] 35328- 0301 May, [place] [address] 98471- 5628 May, Lumbago with sciatica, left side M54.42 ; Lumbago with sciatica, right side M54.41 ; Other chronic pain G89.29 ; Weight gain R63.5 ; Acquired hypothyroidism E03.9 and BMI 40.0-44.9, adult Z68.[address] 23064- 6847 Apr, Cigarette nicotine dependence without complication F17.210 [place] [address] 52772- 9169 Apr, Acute bilateral low back pain without sciatica M54.5 [place] [address] 55726- 1405 Apr, Methamphetamine use disorder, severe, 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 ; Psychosis, unspecified psychosis type F29 ; Personality disorder F60.9 ; Opioid use disorder, moderate, dependence F11.20 and Xanax use disorder, moderate F13.20 [facility] [address] 80153 -9846 Apr, Wheezing R06.2 and Bronchitis J40 [address] 73486- 2129 Apr, Bronchitis J40 ; Cigarette nicotine dependence without complication F17.210 and Bipolar disease, chronic F31.9 [place] [address] 96309- 2831 Mar, Acquired hypothyroidism E03.9 [place] [address] 05390- 6170 Mar, Acquired hypothyroidism E03.9 [place] [address] 31659- 4137 Mar, Orthostatic hypotension I95.1 and Non-intractable vomiting with nausea, unspecified vomiting type R11.[address] 05338- 8440 Mar, Strain of lumbar region, initial encounter S39.012A [address] 46175- 1398 Mar, [facility] [address] 71773 -6375 Mar, Bronchitis J40 [place] [address] 95544- 8855 Mar, Degenerative joint disease M19.90 ; Elevated LFTs R79.89 ; Adenopathy R59.1 ; Drug use F19.90 ; Pre-diabetes R73.03 and COPD (chronic obstructive pulmonary disease) J44.9 [facility] [address] 32254 -7168 Feb, Left hand pain M79.642 and Contusion of left hand, initial encounter S60.222A [address] 75612- 1017 07 Feb, 2017 Body aches R52 and Flu-like symptoms R68.89 [place] [address] 18528- 8463 Jan, [address] [place] [address]- 7521 Jan, Bipolar disease, chronic F31.9 ; Acquired hypothyroidism E03.9 and Encounter for immunization Z23 [facility] [address] [address]43 05 Dec, 2016 Crushing injury of left wrist and hand, initial encounter S67.42XA [address] 45739- 0053 Sep, [address] 68943- 5158 Sep, Bipolar disease, chronic F31.9 ; Panic disorder with agoraphobia F40.01 and Proteinuria, unspecified type R80.[address] 97857- 7912 August, [address] 91551- 9134 August, Degenerative joint disease M19.90 ; Left-sided chest wall pain R07.89 ; Bipolar disease, chronic F31.9 ; Type 2 diabetes mellitus without complication, without long-term current use of insulin E11.9 ; Acquired hypothyroidism E03.9 and Acute cystitis without hematuria N30.[address] 06314- 6937 Mar, [address] 17295- 8540 Feb, [facility] [address] 72561 -2063 Feb, Right hand pain M79.641 [facility] [address] 50096 -0680 Feb, Bronchitis J40 ; Acute non-recurrent pansinusitis J01.40 and Seasonal allergic rhinitis due to other allergic trigger J30.[address] 80052- 9824 Dec, [facility] [address] [facility] [id number] [place] [address] -3470 Mar, Left-sided chest wall pain R07.89 and Chronic pain G89.29 [facility] [address] [id number] [place]- 8175 Jul, [facility] [address] [facility] [id number] [place]- 5731 Jul, [facility] [address] [facility] [id number] [place] [address]- 5226 May, [facility] [address] [facility] [id number] [place] [address], [place]16- 9801 May, [facility] [address] [facility] [id number] [place] [address]- 0474 Apr, [facility] [address] [place] [id number] [place] [address]- 3687 Apr, [facility] [address] [facility] [id number], [place] [address]- 1242 Mar, [facility] [address] [facility] [id number] [place] [address]- 6897 Mar, [facility] [address] [id number], [place] [address]- 7780 Feb, [facility] [address] [facility] [id number], [place] [address]- 7824 Feb, [facility] [address] [facility] [id number], [place] [address]- 0385 Jan, [facility] [address] [facility] [id number] [place] [address]- 6866 Jan, [facility] [address] [facility] [id number] 1884 Jan, [facility] [address] [facility] [id number], [place] [address]- 2386 28 Jan, 2014 [facility] [place] [facility] [address] [id number] [place] [address]- 1830 15 Jan, 2014 [facility] [place] [facility] [address] [id number] [place] [address]- 3484 15 Jan, 2014 [facility] [place] [facility] [address] [id number] [place] [address]- 6625 19 Dec, 2013 [facility] [place] [facility] [address] [id number] [place] [address]- 3397 19 Dec, 2013 [facility] [place] [facility] [address] [id number] [place] [address]- 4633 19 Dec, 2013 [facility] [place] [facility] [address] [id number] [place] [address]- 1939 19 Dec, 2013 [facility] [place] [facility] [address] [id number] [place] [address]- 9785 18 Dec, 2013 [facility] [place] [facility] [address] [id number] [place] [address]- 7701 18 Dec, 2013 [facility] [place] [facility] [address] [id number] [place] [address]- 1681 16 Dec, 2013 [facility] [place] [facility] [address] [id number] [place] [address]- 5014 16 Dec, 2013 [facility] [place] [facility] [address] [id number], [place] [address]- 1987 17 Sep, 2013 [facility] [place] [facility] [address] [id number], [place] [address]- 8414 17 Sep, 2013 [facility] [place] [facility] [address] [id number] [place] [address]- 7044 15 Jul, 2013 [facility] [place] [facility] [address] [id number], [place] [address]- 6282 15 Jul, 2013 [facility] [place] [facility] [address] [id number], [place] [address]- 4457 10 Jul, 2013 [facility] [place] [facility] [address] [id number] [place] [address]- 3351 Jul, [facility] [address] [id number] [place] [address]- 9803 Jul, [facility] [place] [facility] [address] [id number] [place] [address]- 4356 Jul, [facility] [place] [facility] [address] [facility] [id number] [place] [address]- 7328 Jul, [facility] [place] [facility] [address] [id number] [place] [address]- 9261 Jul, [facility] [place] [facility] [address] [id number] [place] [address]- 8372 Jun, [facility] [place] [facility] [address] [id number] [place] [address]- 3619 Jun, [facility] [place] [facility] [address] [facility] [id number] [place] [address]- 5937 May, [facility] [place] [facility] [address] [facility] [id number] [place] [address]- 2984 May, [facility] [place] [facility] [address] [facility] [id number] [place] [address]- 8374 May, [facility] [place] [facility] [address] [facility] [id number] [place] [address]- 3211 May, [facility] [place] [facility] [address] [facility] [id number] [place] [address]- 4158 Apr, [facility] [place] [facility] [address] [id number] [place] [address]- 8177 Apr, [facility] [place] [facility] [address] [id number] [place] [address]- 2021 Mar, [facility] [place] [facility] [address] [facility] [id number] [place]- 6037 Mar, [facility] [place] [facility] [address] [facility] [id number] [place] 8591 Feb, [facility] [place] [facility] [address] [id number] [place] [address]- 5195 Feb, [facility] [place] [facility] [address] [id number] [place] [address]- 4473 Feb, [facility] [place] [facility] [address] [id number] [place] [address]- 0926 Feb, [facility] [place] [facility] [address] [id number] [place] [address]- 8980 Jan, [facility] [place] [facility] [address] [id number] [place] 1514 Jan, [facility] [place] [facility] [address] [id number] [place] [address]- 5218 Jan, [facility] [place] [facility] [address] [id number] [place] [address]- 6315 Jan, [facility] [place] [facility] [address] [id number], [place] [address]- 2804 Jan, [facility] [place] [facility] [address] [id number] [place] [address]- 7695 Dec, [facility] [place] [facility] [address] [id number][place] 3051 Dec, [facility] [place] [facility] [address] [id number], [place] [address]- 3969 Nov, [facility] [place] [facility] [address] [id number], [place] [address]- 5452 Sep, [facility] [place] [facility] [address] [id number], [place] [address]- 7384 August, [facility] [place] [facility] [address] [id number], [place] [address]- 9506 August, [facility] [place] [facility] [address] [id number], [place] [address]- 8163 Jul, [facility] [place] [facility] [address] [id number], [place] [address]- 1404 Jul, [facility] [address] [id number] [place] [address]- 4707 Jul, [facility] [address] [id number] [place] [address]- 7604 Jul, [facility] [address] [facility] [id number] [place] [address]- 5712 Jul, [facility] [address] [id number] [place] [address]- 4488 Jul, [facility] [address] [id number] [place] [address]- 5442 Jul, [facility] [address] [id number] [place] [address]- 7661 Jun, [facility] [address] [facility] [id number] [place] [address]- 2549 Jun, [facility] [address] [id number] [place] [address]- 7189 May, [facility] [address] [id number] [place] [address]- 8842 Apr, [facility] [address] [facility] [id number] [place] [address]- 9914 Apr, [facility] [address] [id number] [place] [address]- 3032 Mar, [facility] [address] [id number] [place] [address]- 3015 Mar, [facility] [address] [id number] [place] [address]- 6509 Mar, [facility] [address] [id number] [place] [address]- 4088 Feb, [facility] [address] [facility] [id number] [place] [address]- 7235 Feb, [facility] [place] [facility] [address] [id number] [place] [address]- 9850 24 Feb, 2012 [facility] [place] [facility] [address] [id number] [place] [address]- 2516 24 Feb, 2012 [facility] [place] [facility] [address] [id number] [place] [address] 2546 Feb, [facility] [place] [facility] [address] [id number] [place] [address]- 1106 Feb, [facility] [place] [facility] [address] [id number] [place] [address] 2548 16 Feb, 2012 [facility] [place] [facility] [address] [id number] [place] [address]- 1096 16 Feb, 2012 [facility] [place] [facility] [address] [id number] [place] [address]- 0052 14 Feb, 2012 [facility] [place] [facility] [address] [id number] [place] [address]- 7551 Feb, [facility] [place] [facility] [address] [id number] [place] [address]- 1628 Feb, [facility] [place] [facility] [address] [id number] [place] [address]- 2646 27 Dec, 2011 [facility] [place] [facility] [address] [id number] [place] [address]- 5440 07 Dec, 2011 [facility] [place] [facility] [address] [id number] [place] [address]- 2299 30 Nov, 2011 [facility] [place] [facility] [address] [id number] [place] [address]- 5676 Nov, [facility] [place] [facility] [address] [id number] [place] [address]- 2196 31 Oct, 2011 [facility] [place] [facility] [address] [id number] [place] [address]- 0676 27 Oct, 2011 [facility] [place] [facility] [address] [id number] [place] [address]- 5623 Sep, [facility] [place] [facility] [address] [id number] [place] [address]- 7013 May, [facility] [place] [facility] [address] [id number] [place] 0286 May, [facility] [place] [facility] [address] [id number] [place] [address]- 9780 May, [facility] [place] [facility] [address] [id number] [place] 2140 Apr, [facility] [place] [facility] [address] [id number] [place] 1528 Mar, [facility] [place] [facility] [address] [id number] [place] [address]- 1609 Mar, [facility] [place] [facility] [address] [id number], [place] [address]- 4842 Feb, [facility] [place] [facility] [address] [id number], [place] [address]- 3784 Feb, [facility] [place] [facility] [address] [id number], [place] [address]- 6392 Feb, [facility] [place] [facility] [address] [id number], [place] [address]- 2886 Jan, [facility] [place] [facility] [address] [id number], [place] [address]- 2882 Jan, [facility] [place] [facility] [address] [id number], [place] [address]- 6158 Dec, [facility] [place] [facility] [address] [id number][place] 9978 Mar, [facility] [place] [address] [id number], [place] [address] Feb, [facility] [address] [id number], [place] [address] Feb, [facility] [address] [id number], [place] [address] Feb, [facility] [address] [id number], [place] [address] Jan, [facility] [id number], [place] [address] Dec, 2008 [facility] [id number], [place] [address] Nov, [facility] [id number], [place] [address] Sep, [facility] [id number], [place] [address] August, [facility] [id number], [place] [address] May, [facility] [id number], [place] [address] Mar, IMMUNIZATIONS No Known Immunizations SOCIAL HISTORY Never Assessed REASON FOR VISIT lab PLAN OF CARE VITAL SIGNS MEDICATIONS Unknown [...] History left foot swollen, stepped in [facility] 05/02/17
--- OUTSIDE RECORDS SUMMARY | 2018-06-21 20:27 | XMS REPORT ---
Author Author CORINNE BERGER [facility] Address [address] [place] [address] Care Team Providers Care Cash Clerk Name Role Phone CORINNE BERGER Unavailable PROBLEMS Type Condition ICD9-CM Code ECS17-GN Code Onset Dates Condition Status SNOMED Code Problem COPD (chronic obstructive pulmonary disease) J44.9 Active 51756063 Problem Lumbago with sciatica, right side M54.41 Active [id number] Problem Panic disorder with agoraphobia F40.01 Active 12882895 Problem Other chronic pain G89.29 Active 03287838 Problem Degenerative joint disease M19.90 Active 075791357 Problem Morbid (severe) obesity due to excess calories E66.01 Active 09739490128148 Problem Depressive disorder, not elsewhere classified F32.9 Active 78738010 Problem Body mass index (BMI) of 40.0-44.9 in adult Z68.41 Active 839299209 Problem Mood disorder F39 Active 25328275 Problem Nicotine withdrawal F17.203 Active 24444082 Problem Acquired hypothyroidism E03.9 Active 363630845 Problem Chronic pain G89.29 Active 74790206 Problem Bipolar disease, chronic F31.9 Active 25035171 Problem 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 Active 368051259254322 Problem Right sciatic nerve pain M54.31 Active 08402509 Problem Hypothyroidism (acquired) E03.9 Active 21098121 Problem Fibrocystic changes of left breast N60.12 Active 56827111 Problem Opioid use disorder, moderate, dependence F11.20 Active 17464951 Problem Xanax use disorder, moderate F13.20 Active 545618194 Problem Pre-diabetes R73.03 Active 196440904 Problem Cigarette nicotine dependence without complication F17.210 Active 29645819 Problem Personality disorder F60.9 Active 79822906 Problem Lumbago with sciatica, left side M54.42 Active 181002812 Problem Methamphetamine use disorder, severe, 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 Active 23411088 Problem Psychosis, unspecified psychosis type F29 Active 37182286 ALLERGIES No Information ENCOUNTERS Encounter Location Date Diagnosis [facility] [id number] [place] [address] 90576- 0304 Mar, [facility] [id number] [place] [address] 75481- 2429 Mar, [facility] [address] 81687- 6873 Feb, Acquired hypothyroidism E03.9 [facility] [address] 41944- 3826 Feb, Liver enzyme elevation R74.8 [facility] [address] 47954- 7572 Feb, Mood disorder F39 ; Nicotine withdrawal F17.203 ; Liver enzyme elevation R74.8 and Hypothyroidism (acquired) E03.9 [facility] [id number] [place] [address] 50900- 7060 Jan, Methamphetamine use disorder, severe, 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 ; Psychosis, unspecified psychosis type F29 ; Personality disorder F60.9 ; Opioid use disorder, moderate, dependence F11.20 ; Xanax use disorder, moderate F13.20 and BMI 45.0-49.9, adult Z68.42 [facility] [id number] [place] [address] 28126- 8786 Jan, Liver enzyme elevation R74.8 and Hypothyroidism (acquired) E03.9 [facility] [id number] [place] [address] 87356- 5758 Dec, BMI 40.0-44.9, adult Z68.41 ; Chronic pain G89.29 ; Degenerative joint disease M19.90 and Pre-diabetes R73.03 [facility] [id number] [place] [address] 20114- 6614 Dec, [facility] [id number] [place] [address] 79915- 0032 Dec, Methamphetamine use disorder, severe, 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 ; Psychosis, unspecified psychosis type F29 ; Personality disorder F60.9 ; Opioid use disorder, moderate, dependence F11.20 ; Xanax use disorder, moderate F13.20 and BMI 45.0-49.9, adult Z68.42 [facility] [id number] [place] [address] 40307- 6144 Dec, [facility] [id number] [place] [address] 13847- 9817 Oct, Breast pain N64.4 ; Fibrocystic changes of left breast N60.12 and Bilateral otitis media with effusion H65.93 [facility] [id number] [place] [address] 63638 -1025 Sep, 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 [facility] [id number] [place] [address] 44312- 9555 Sep, [facility] [id number] [place] [address] 66033- 1000 Sep, Methamphetamine use disorder, severe, 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 ; Psychosis, unspecified psychosis type F29 ; Personality disorder F60.9 ; Opioid use disorder, moderate, dependence F11.20 ; Xanax use disorder, moderate F13.20 and BMI 40.0-44.9, adult Z68.41 [facility] [id number] [place] [address] 05976- 3969 Sep, Depressive disorder, not elsewhere classified F32.9 and Psychosis, unspecified psychosis type F29 [facility] [id number] [place] [address] 07936- 5564 August, [facility] [id number] [place] [address] 68086- 2601 August, Depressive disorder, not elsewhere classified F32.9 and Psychosis, unspecified psychosis type F29 [facility] [id number] [place] [address] 50958- 4346 August, [facility] [address] [address] August, Lumbago with sciatica, right side M54.41 and Other chronic pain G89.29 [facility] [address], [place] [address] Jul, Right sciatic nerve pain M54.31 [facility] [id number] [place] [address] 01206- 3639 Jul, Acquired hypothyroidism E03.9 [facility] [id number] [place] [address] 34388- 8399 Jul, Depressive disorder, not elsewhere classified F32.9 and Psychosis, unspecified psychosis type F29 [facility] [id number] [place] [address] 50349- 3952 Jul, Acquired hypothyroidism E03.9 ; Lumbago with sciatica, right side M54.41 and Lumbar radiculopathy, acute M54.16 [facility] [id number] [place] [address] 91281- 7443 Jul, Methamphetamine use disorder, severe, 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 ; Psychosis, unspecified psychosis type F29 ; Personality disorder F60.9 ; Opioid use disorder, moderate, dependence F11.20 ; Xanax use disorder, moderate F13.20 and BMI 40.0-44.9, adult Z68.41 [facility] [id number] [place] [address] 76878- 3747 Jun, Methamphetamine use disorder, severe, 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 ; Psychosis, unspecified psychosis type F29 ; Personality disorder F60.9 ; Opioid use disorder, moderate, dependence F11.20 and Xanax use disorder, moderate F13.20 [facility] [address] [address]- 9124 Jun, Depressive disorder, not elsewhere classified F32.9 and Psychosis, unspecified psychosis type F29 [facility] [id number] [place] [address] 32530- 9160 Jun, Lumbar radiculopathy, acute M54.16 [facility] [address] 91648- 3062 Jun, Lumbar radiculopathy, acute M54.16 ; Strain of abdominal wall, initial encounter S39.011A and BMI 40.0-44.9, adult Z68.41 [facility] [address] 33814- 2337 Jun, [facility] [address] 86442- 3920 May, [facility] [id number] [place] [address] 82606- 0215 May, Methamphetamine use disorder, severe, 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 ; Psychosis, unspecified psychosis type F29 ; Personality disorder F60.9 ; Opioid use disorder, moderate, dependence F11.20 and Xanax use disorder, moderate F13.20 [facility] [id number] [place] [address] 55323- 4834 May, [facility] [id number] [place] [address] 64395- 2866 May, [facility] [id number] [place] [address] 74944- 1865 May, Lumbago with sciatica, left side M54.42 ; Lumbago with sciatica, right side M54.41 ; Other chronic pain G89.29 ; Weight gain R63.5 ; Acquired hypothyroidism E03.9 and BMI 40.0-44.9, adult Z68.41 [facility] [id number] [place] [address] 93648- 0737 Apr, Cigarette nicotine dependence without complication F17.210 [facility] [id number] [place] [address] 58148- 0007 Apr, Acute bilateral low back pain without sciatica M54.5 [facility] [id number] [place] [address] 16679- 0074 Apr, Methamphetamine use disorder, severe, 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 ; Psychosis, unspecified psychosis type F29 ; Personality disorder F60.9 ; Opioid use disorder, moderate, dependence F11.20 and Xanax use disorder, moderate F13.20 [facility] [id number] [place] [address] 37660 -9310 Apr, Wheezing R06.2 and Bronchitis J40 [facility] [id number] [place] [address] 48150- 9800 Apr, Bronchitis J40 ; Cigarette nicotine dependence without complication F17.210 and Bipolar disease, chronic F31.9 [facility] [address] 11643- 8947 Mar, Acquired hypothyroidism E03.9 [facility] [address] 68431- 6058 Mar, Acquired hypothyroidism E03.9 [facility] [id number] [place] [address] 86715- 3731 Mar, Orthostatic hypotension I95.1 and Non-intractable vomiting with nausea, unspecified vomiting type R11.2 [facility] [id number] [place] [address] 12975- 0171 Mar, Strain of lumbar region, initial encounter S39.012A [facility] [id number] [place] [address] 33744- 5427 Mar, [facility] [id number] [place] [address] 64846 -4699 Mar, Bronchitis J40 [facility] [id number] [place] [address] 54640- 2630 05 Mar, 2017 Degenerative joint disease M19.90 ; Elevated LFTs R79.89 ; Adenopathy R59.1 ; Drug use F19.90 ; Pre-diabetes R73.03 and COPD (chronic obstructive pulmonary disease) J44.9 [facility] [id number] [place] [address] 49424 -2209 30 Feb, 2017 Left hand pain M79.642 and Contusion of left hand, initial encounter S60.222A [facility] [id number] [place] [address] 58286- 5322 07 Feb, 2017 Body aches R52 and Flu-like symptoms R68.89 [facility] [address] 70286- 4747 26 Jan, [address] 96872- 0366 Jan, Bipolar disease, chronic F31.9 ; Acquired hypothyroidism E03.9 and Encounter for immunization Z23 [facility] [id number] [place] [address] 26805 -5396 05 Dec, 2016 Crushing injury of left wrist and hand, initial encounter S67.42XA [facility] [id number] [place] [address] 86230- 1992 Sep, [address] 03092- 8871 Sep, Bipolar disease, chronic F31.9 ; Panic disorder with agoraphobia F40.01 and Proteinuria, unspecified type R80.9 [facility] [id number] [place] [address] 10501- 2556 August, [facility] [id number] [place] [address] 36346- 2325 August, Degenerative joint disease M19.90 ; Left-sided chest wall pain R07.89 ; Bipolar disease, chronic F31.9 ; Type 2 diabetes mellitus without complication, without long-term current use of insulin E11.9 ; Acquired hypothyroidism E03.9 and Acute cystitis without hematuria N30.00 [facility] [id number] [place] [address] 36321- 8184 Mar, [facility] [address] [address]- 9569 Feb, [facility] [id number] [place] [address] 68351 -7848 Feb, Right hand pain M79.641 [facility] [id number] [place] [address] 24283 -4072 Feb, Bronchitis J40 ; Acute non-recurrent pansinusitis J01.40 and Seasonal allergic rhinitis due to other allergic trigger J30.89 [facility] [id number] [place] [address] 99672- 7381 Dec, [facility] [id number] [place] [address] 44212 -6834 Mar, Left-sided chest wall pain R07.89 and Chronic pain G89.29 [facility] [id number] [place] [address] 77151- 7198 Jul, [facility] [id number] [place] [address] 30834- 7581 Jul, [facility] [id number] [place] [address] 22930- 9904 May, [facility] [id number] [place] [address] 76101- 3126 May, [facility] [id number] [place] [address] 14527- 7890 Apr, [facility] [id number] [place] [address] 91312- 5951 Apr, [facility] [id number] [place] [address] 080210- 7124 Mar, [facility] [id number] [place] [address] 104644- 6097 Mar, [facility] [id number] [place] [address] 75063- 0626 Feb, [facility] [place] [facility] [address] [id number] [place] [address]- 3748 Feb, [facility] [place] [facility] [address] [id number] [place] [address]- 8119 Jan, [facility] [place] [facility] [address] [id number] [place] [address]- 9759 Jan, [facility] [place] [facility] [address] [id number] [place] [address]- 9486 Jan, [facility] [place] [facility] [address] [id number] [place] [address]- 8389 28 Jan, 2014 [facility] [place] [facility] [address] [id number] [place] [address]- 4927 15 Jan, 2014 [facility] [place] [facility] [address] [id number] [place] [address]- 6523 15 Jan, 2014 [facility] [place] [facility] [address] [id number] [place] [address]- 1707 19 Dec, 2013 [facility] [place] [facility] [address] [id number] [place] [address]- 1443 19 Dec, 2013 [facility] [place] [facility] [address] [id number], [place] [address]- 5668 19 Dec, 2013 [facility] [place] [facility] [address] [id number], [place] [address]- 5479 19 Dec, 2013 [facility] [place] [facility] [address] [id number], [place] [address]- 6862 18 Dec, 2013 [facility] [place] [facility] [address] [id number] [place] [address]- 8913 18 Sep, 2013 [facility] [place] [facility] [address] [id number], [place] [address]- 1609 16 Dec, 2013 [facility] [place] [facility] [address] [id number] [place] [address]- 0393 16 Dec, 2013 [facility] [place] [facility] [address] [id number] [place] [address]- 5668 17 Sep, 2013 [facility] [place] [facility] [address] [id number] [place] [address]- 7217 17 Sep, 2013 [facility] [place] [facility] [address] [id number] [place] [address]- 0255 Jul, [facility] [place] [facility] [address] [id number] [place] [address]- 5204 Jul, [facility] [place] [facility] [address] [id number] [place] [address]- 5867 Jul, [facility] [place] [facility] [address] [id number] [place] [address]- 3272 Jul, [facility] [place] [facility] [address] [id number] [place] [address]- 0085 Jul, [facility] [place] [facility] [address] [id number] [place] [address]- 9290 Jul, [facility] [place] [facility] [address] [id number] [place] [address]- 5338 Jul, [facility] [place] [facility] [address] [id number] [place] [address]- 8632 Jul, [facility] [place] [facility] [address] [id number] [place] [address]- 8639 Jun, [facility] [place] [facility] [address] [id number] [place] [address]- 3899 Jun, [facility] [place] [facility] [address] [id number] [place] [address]- 0572 May, [facility] [place] [facility] [address] [id number] [place] [address]- 9638 May, [facility] [place] [facility] [address] [id number] [place] [address]- 2825 May, [facility] [place] [facility] [address] [id number] [place] [address]- 3461 May, [facility] [place] [facility] [address] [id number] [place] [address]- 0937 Apr, [facility] [place] [facility] [address] [id number] [place] [address]- 8121 Apr, [facility] [place] [facility] [address] [id number] [place] [address]- 0922 Mar, [facility] [place] [facility] [address] [id number] [place] [address]- 0131 Mar, [facility] [place] [facility] [address] [id number] [place] [address]- 5060 Feb, [facility] [place] [facility] [address] [id number] [place] [address]- 6300 Feb, [facility] [place] [facility] [address] [id number] [place] [address]- 1099 Feb, [facility] [place] [facility] [address] [id number] [place] [address]- 6976 Feb, [facility] [place] [facility] [address] [id number] [place] [address]- 6139 Jan, [facility] [place] [facility] [address] [id number], [place] [address]- 5629 Jan, [facility] [place] [facility] [address] [id number], [place] [address]- 7920 Jan, [facility] [place] [facility] [address] [id number], [place] [address]- 7656 Jan, [facility] [place] [facility] [address] [id number], [place] [address]- 6204 Jan, [facility] [place] [facility] [address] [id number], [place] [address]- 1215 Dec, [facility] [place] [facility] [address] [id number], [place] [address]- 254 Dec, [facility] [place] [facility] [address] [id number], [place] [address]- 8012 Nov, [facility] [address] [id number] [place] [address]- 1631 Sep, [facility] [address] [id number] [place] [address]- 1310 August, [facility] [address] [id number] [place] [address]- 2849 August, [facility] [address] [id number] [place] [address]- 6352 Jul, [facility] [address] [id number] [place] [address]- 0280 Jul, [facility] [address] [id number] [place] [address]- 8055 Jul, [facility] [address] [id number] [place] [address]- 6006 Jul, [facility] [address] [id number] [place] [address]- 0427 Jul, [facility] [address] [id number] [place] [address]- 1603 Jul, [facility] [address] [id number] [place] [address]- 8252 Jul, [facility] [address] [id number] [place] [address]- 5686 Jun, [facility] [place] [facility] [address] [id number] [place] [address]- 0575 Jun, [facility] [place] [facility] [address] [id number] [place] [address]- 3448 May, [facility] [place] [facility] [address] [id number] [place] [address]- 8932 Apr, [facility] [place] [facility] [address] [id number] [place] [address]- 2543 Apr, [facility] [place] [facility] [address] [id number] [place] [address]- 0978 Mar, [facility] [place] [facility] [address] [id number] [place] [address]- 8835 Mar, [facility] [place] [facility] [address] [id number] [place] [address]- 1947 Mar, [facility] [place] [facility] [address] [id number] [place] [address]- 7174 Feb, [facility] [place] [facility] [address] [id number] [place] [address]- 4434 24 Feb, 2012 [facility] [place] [facility] [address] [id number] [place] [address]- 8321 Feb, [facility] [place] [facility] [address] [id number] [place] [address]- 8223 Feb, [facility] [place] [facility] [address] [id number] [place] [address]- 0826 Feb, [facility] [place] [facility] [address] [id number] [place] [address]- 0961 19 Feb, 2012 [facility] [place] [facility] [address] [id number] [place] [address]- 4001 16 Feb, 2012 [facility] [place] [facility] [address] [id number] [place] [address]- 1806 16 Feb, 2012 [facility] [place] [facility] [address] [id number] [place] [address]- 1622 14 Feb, 2012 [facility] [place] [facility] [address] [id number] [place] [address]- 0450 08 Feb, 2012 [facility] [place] [facility] [address] [id number] [place] [address]- 5456 08 Feb, 2012 [facility] [place] [facility] [address] [id number] [place] [address]- 6927 27 Dec, 2011 [facility] [place] [facility] [address] [id number] [place] [address]- 9854 Dec, [facility] [place] [facility] [address] [id number] [place] [address]- 9128 Nov, [facility] [place] [facility] [address] [id number] [place] [address]- 5964 Nov, [facility] [place] [facility] [address] [id number] [place] [address] Oct, [facility] [place] [facility] [address] [id number] [place] [address] Oct, [facility] [place] [facility] [address] [id number] [place] [address] Sep, [facility] [place] [facility] [address] [id number] [place] [address] May, [facility] [place] [facility] [address] [id number] [place] [address] May, [facility] [place] [facility] [address] [id number] [place] [address] May, [facility] [place] [facility] [address] [id number] [place] [address] Apr, [facility] [place] [facility] [address] [id number] [place] [address] Mar, [facility] [place] [facility] [address] [id number] [place] [address] Mar, [facility] [place] [facility] [address] [id number] [place] [address] Feb, [facility] [place] [facility] [address] [id number] [place] [address] Feb, [facility] [place] [facility] [address] [id number] [place] [address] Feb, [facility] [place] [facility] [address] [id number] [place] [address] Jan, [facility] [place] [facility] [id number] [address] Jan, 2011 [facility] [id number] [place] [address] Dec, [facility] [id number] [place] [address] Mar, [facility] [id number] [place] [address] Feb, [facility] [id number] [place] [address] Feb, [facility] [id number] [place] [address] Feb, [facility] [id number] [address] Jan, [facility] [id number] [place] [address] Dec, [facility] [id number] [place] [address] Nov, [facility] [id number] [place] [address] Sep, [facility] [id number] [place] [address] August, [facility] [id number] [place] [address] May, [facility] [id number] [address] Mar, IMMUNIZATIONS No Known Immunizations SOCIAL HISTORY Never Assessed REASON FOR VISIT Lab results PLAN OF CARE VITAL SIGNS MEDICATIONS Medication Instructions Dosage Frequency Start Date End Date Duration Status Synthroid 100 MCG Orally Once a day [...] harming, suicide ideat and attempts. [place], [place], [place] last around 2006 Hospitalization History left foot swollen, stepped in [facility] 05/02/17
--- OUTSIDE RECORDS SUMMARY | 2018-06-21 20:27 | XMS REPORT ---
Author Author CORINNE BERGER [facility] Address [address] [place] [address] Care Team Providers Care Observation Assistant Name Role Phone CORINNE BERGER Unavailable PROBLEMS Type Condition ICD9-CM Code SCC25-SO Code Onset Dates Condition Status SNOMED Code Problem COPD (chronic obstructive pulmonary disease) J44.9 Active 54894607 Problem Lumbago with sciatica, right side M54.41 Active 550331672662886 Problem Panic disorder with agoraphobia F40.01 Active 57179748 Problem Other chronic pain G89.29 Active 49629341 Problem Degenerative joint disease M19.90 Active 021114462 Problem Morbid (severe) obesity due to excess calories E66.01 Active 61062914538925 Problem Depressive disorder, not elsewhere classified F32.9 Active 24632099 Problem Body mass index (BMI) of 40.0-44.9 in adult Z68.41 Active 802414997 Problem Mood disorder F39 Active 50480689 Problem Nicotine withdrawal F17.203 Active 67204254 Problem Acquired hypothyroidism E03.9 Active 931321988 Problem Chronic pain G89.29 Active 31369220 Problem Bipolar disease, chronic F31.9 Active 75321472 Problem 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 Active 082745047097130 Problem Right sciatic nerve pain M54.31 Active 82023087 Problem Hypothyroidism (acquired) E03.9 Active 57171117 Problem Fibrocystic changes of left breast N60.12 Active 54466943 Problem Opioid use disorder, moderate, dependence F11.20 Active 14180435 Problem Xanax use disorder, moderate F13.20 Active 156729972 Problem Pre-diabetes R73.03 Active 703998460 Problem Cigarette nicotine dependence without complication F17.210 Active 34464876 Problem Personality disorder F60.9 Active 31799056 Problem Lumbago with sciatica, left side M54.42 Active 711512717 Problem Methamphetamine use disorder, severe, 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 Active 67362701 Problem Psychosis, unspecified psychosis type F29 Active 11202659 ALLERGIES No Information ENCOUNTERS Encounter Location Date Diagnosis [place] [id number] [place] [address] 95475- 5835 Mar, [facility] [id number] [place] [address] 96107- 6397 Mar, [place] [address] 22117- 7381 Feb, Acquired hypothyroidism E03.9 [place] [address] 77596- 7534 Feb, Liver enzyme elevation R74.8 [place] [address] 75872- 5758 Feb, Mood disorder F39 ; Nicotine withdrawal F17.203 ; Liver enzyme elevation R74.8 and Hypothyroidism (acquired) E03.9 [place] [id number] [place] [address] 49357- 8586 Jan, Methamphetamine use disorder, severe, 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 ; Psychosis, unspecified psychosis type F29 ; Personality disorder F60.9 ; Opioid use disorder, moderate, dependence F11.20 ; Xanax use disorder, moderate F13.20 and BMI 45.0-49.9, adult Z68.42 [place] [id number] [place] [address] 19327- 1432 Jan, Liver enzyme elevation R74.8 and Hypothyroidism (acquired) E03.9 [place] [id number] [place] [address] 73814- 8812 Dec, BMI 40.0-44.9, adult Z68.41 ; Chronic pain G89.29 ; Degenerative joint disease M19.90 and Pre-diabetes R73.03 [place] [id number] [place] [address] 52663- 5659 Dec, [place] [id number] [place] [address] 70897- 3317 Dec, Methamphetamine use disorder, severe, 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 ; Psychosis, unspecified psychosis type F29 ; Personality disorder F60.9 ; Opioid use disorder, moderate, dependence F11.20 ; Xanax use disorder, moderate F13.20 and BMI 45.0-49.9, adult Z68.42 [facility] [id number] [place] [address] 08117- 6715 Dec, [place] [id number] [place] [address] 29923- 9545 Oct, Breast pain N64.4 ; Fibrocystic changes of left breast N60.12 and Bilateral otitis media with effusion H65.93 [facility] [id number] [place] [address] 44546 -6987 Sep, 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 [place] [id number] [place] [address] 32744- 6820 Sep, [place] [id number] [place] [address] 38997- 0075 Sep, Methamphetamine use disorder, severe, 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 ; Psychosis, unspecified psychosis type F29 ; Personality disorder F60.9 ; Opioid use disorder, moderate, dependence F11.20 ; Xanax use disorder, moderate F13.20 and BMI 40.0-44.9, adult Z68.41 [place] [id number] [place] [address] 12805- 8658 Sep, Depressive disorder, not elsewhere classified F32.9 and Psychosis, unspecified psychosis type F29 [place] [id number] [place] [address] 02408- 4442 August, [place] [id number] [place] [address] 32999- 5850 August, Depressive disorder, not elsewhere classified F32.9 and Psychosis, unspecified psychosis type F29 [place] [id number] [place] [address] 09717- 3242 August, [facility] [address] [address] 9053 August, Lumbago with sciatica, right side M54.41 and Other chronic pain G89.29 [facility] [address], [place] [address] -7883 Jul, Right sciatic nerve pain M54.31 [facility] [id number] [place] [address] 45206- 8481 Jul, Acquired hypothyroidism E03.9 [facility] [id number] [place] [address] 50530- 2834 Jul, Depressive disorder, not elsewhere classified F32.9 and Psychosis, unspecified psychosis type F29 [place] [id number] [place] [address] 59985- 1101 Jul, Acquired hypothyroidism E03.9 ; Lumbago with sciatica, right side M54.41 and Lumbar radiculopathy, acute M54.16 [facility] [id number] [place] [address] 13008- 0974 Jul, Methamphetamine use disorder, severe, 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 ; Psychosis, unspecified psychosis type F29 ; Personality disorder F60.9 ; Opioid use disorder, moderate, dependence F11.20 ; Xanax use disorder, moderate F13.20 and BMI 40.0-44.9, adult Z68.41 [facility] [id number] [place] [address] 47131- 5545 Jun, Methamphetamine use disorder, severe, 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 ; Psychosis, unspecified psychosis type F29 ; Personality disorder F60.9 ; Opioid use disorder, moderate, dependence F11.20 and Xanax use disorder, moderate F13.20 [place] [address], [place] [address]- 7787 Jun, Depressive disorder, not elsewhere classified F32.9 and Psychosis, unspecified psychosis type F29 [facility] [id number] [place] [address] 27181- 3576 Jun, Lumbar radiculopathy, acute M54.16 [place] [address] 58930- 4250 Jun, Lumbar radiculopathy, acute M54.16 ; Strain of abdominal wall, initial encounter S39.011A and BMI 40.0-44.9, adult Z68.41 [place] [address] 49427- 8081 Jun, [place] [address] 82459- 2902 May, [place] [id number] [place] [address] 20750- 1133 May, Methamphetamine use disorder, severe, 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 ; Psychosis, unspecified psychosis type F29 ; Personality disorder F60.9 ; Opioid use disorder, moderate, dependence F11.20 and Xanax use disorder, moderate F13.20 [place] [id number] [place] [address] 75363- 8847 May, [place] [id number] [place] [address] 48615- 8844 May, [place] [id number] [place] [address] 77278- 8343 May, Lumbago with sciatica, left side M54.42 ; Lumbago with sciatica, right side M54.41 ; Other chronic pain G89.29 ; Weight gain R63.5 ; Acquired hypothyroidism E03.9 and BMI 40.0-44.9, adult Z68.41 [place] [id number] [place] [address] 87792- 0793 Apr, Cigarette nicotine dependence without complication F17.210 [place] [id number] [place] [address] 42472- 7422 Apr, Acute bilateral low back pain without sciatica M54.5 [place] [id number] [place] [address] 02492- 8489 Apr, Methamphetamine use disorder, severe, 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 ; Psychosis, unspecified psychosis type F29 ; Personality disorder F60.9 ; Opioid use disorder, moderate, dependence F11.20 and Xanax use disorder, moderate F13.20 [facility] [id number] [place] [address] 80179 -2231 Apr, Wheezing R06.2 and Bronchitis J40 [place] [id number] [place] [address] 23012- 3399 Apr, Bronchitis J40 ; Cigarette nicotine dependence without complication F17.210 and Bipolar disease, chronic F31.9 [place] [address] 48801- 9370 Mar, Acquired hypothyroidism E03.9 [place] [address] 17375- 6250 Mar, Acquired hypothyroidism E03.9 [place] [id number] [place] [address] 35533- 0299 Mar, Orthostatic hypotension I95.1 and Non-intractable vomiting with nausea, unspecified vomiting type R11.2 [place] [id number] [place] [address] 32180- 6722 Mar, Strain of lumbar region, initial encounter S39.012A [place] [id number] [place] [address] 51295- 8195 Mar, [facility] [id number] [place] [address] 75635 -2192 Mar, Bronchitis J40 [place] [id number] [place] [address] 62795- 6158 05 Mar, 2017 Degenerative joint disease M19.90 ; Elevated LFTs R79.89 ; Adenopathy R59.1 ; Drug use F19.90 ; Pre-diabetes R73.03 and COPD (chronic obstructive pulmonary disease) J44.9 [facility] [id number] [place] [address] 61039 -5201 30 Feb, 2017 Left hand pain M79.642 and Contusion of left hand, initial encounter S60.222A [place] [id number] [place] [address] 42373- 0457 07 Feb, 2017 Body aches R52 and Flu-like symptoms R68.89 [place] [address] 48609- 2136 26 Jan, [address] 86644- 8188 Jan, Bipolar disease, chronic F31.9 ; Acquired hypothyroidism E03.9 and Encounter for immunization Z23 [facility] [id number] [place] [address] 07247 -0468 05 Dec, 2016 Crushing injury of left wrist and hand, initial encounter S67.42XA [place] [id number] [place] [address] 74149- 2618 Sep, [address] 51323- 9409 Sep, Bipolar disease, chronic F31.9 ; Panic disorder with agoraphobia F40.01 and Proteinuria, unspecified type R80.9 [place] [id number] [place] [address] 24488- 5652 August, [place] [id number] [place] [address] 80553- 4926 August, Degenerative joint disease M19.90 ; Left-sided chest wall pain R07.89 ; Bipolar disease, chronic F31.9 ; Type 2 diabetes mellitus without complication, without long-term current use of insulin E11.9 ; Acquired hypothyroidism E03.9 and Acute cystitis without hematuria N30.00 [place] [id number] [place] [address] 90983- 7687 Mar, [facility] [address], [place] [address]- 1145 Feb, [facility] [id number] [place] [address] 73111 -6804 Feb, Right hand pain M79.641 [facility] [id number] [place] [address] 41343 -3821 Feb, Bronchitis J40 ; Acute non-recurrent pansinusitis J01.40 and Seasonal allergic rhinitis due to other allergic trigger J30.89 [facility] [id number] [place] [address] 18546- 3716 Dec, [facility] [id number] [place] [address] 03044 -3395 Mar, Left-sided chest wall pain R07.89 and Chronic pain G89.29 [facility] [id number] [place] [address] 13881- 5941 Jul, [facility] [id number] [place] [address] 83743- 0451 Jul, [facility] [id number] [place] [address] 86432- 4164 May, [facility] [id number] [place] [address] 21865- 8845 May, [facility] [id number] [place] [address] 60779- 1664 Apr, [facility] [id number] [place] [address] 57595- 5623 Apr, [facility] [id number] [place] [address] 203894- 7842 Mar, [facility] [id number] [place] [address] 905009- 1580 Mar, [facility] [id number] [place] [address] 20658- 1890 Feb, [facility] [place] [facility] [address] [id number] [place] [address]- 5897 Feb, [facility] [place] [facility] [address] [id number] [place] [address]- 2055 Jan, [facility] [place] [facility] [address] [id number] [place] [address]- 8575 Jan, [facility] [place] [facility] [address] [id number] [place] [address]- 7763 Jan, [facility] [place] [facility] [address] [id number] [place] [address]- 6241 28 Jan, 2014 [facility] [place] [facility] [address] [id number] [place] [address]- 9154 15 Jan, 2014 [facility] [place] [facility] [address] [id number] [place] [address]- 0348 15 Jan, 2014 [facility] [place] [facility] [address] [id number] [place] [address]- 7666 19 Dec, 2013 [facility] [place] [facility] [address] [id number] [place] [address]- 3900 19 Dec, 2013 [facility] [place] [facility] [address] [id number], [place] [address]- 4941 19 Dec, 2013 [facility] [place] [facility] [address] [id number], [place] [address]- 2386 19 Dec, 2013 [facility] [place] [facility] [address] [id number], [place] [address]- 8282 18 Dec, 2013 [facility] [place] [facility] [address] [id number] [place] [address]- 0108 18 Sep, 2013 [facility] [place] [facility] [address] [id number], [place] [address]- 2903 16 Dec, 2013 [facility] [place] [facility] [address] [id number] [place] [address]- 2545 16 Dec, 2013 [facility] [place] [facility] [address] [id number] [place] [address]- 0311 17 Sep, 2013 [facility] [place] [facility] [address] [id number] [place] [address]- 4705 17 Sep, 2013 [facility] [place] [facility] [address] [id number] [place] [address]- 8282 Jul, [facility] [place] [facility] [address] [id number] [place] [address]- 0111 Jul, [facility] [place] [facility] [address] [id number] [place] [address]- 9683 Jul, [facility] [place] [facility] [address] [id number] [place] [address]- 2753 Jul, [facility] [place] [facility] [address] [id number] [place] [address]- 1537 Jul, [facility] [place] [facility] [address] [id number] [place] [address]- 1326 Jul, [facility] [place] [facility] [address] [id number] [place] [address]- 1129 Jul, [facility] [place] [facility] [address] [id number] [place] [address]- 9047 Jul, [facility] [place] [facility] [address] [id number] [place] [address]- 2585 Jun, [facility] [place] [facility] [address] [id number] [place] [address]- 6137 Jun, [facility] [place] [facility] [address] [id number] [place] [address]- 3898 May, [facility] [place] [facility] [address] [id number] [place] [address]- 8414 May, [facility] [place] [facility] [address] [id number] [place] [address]- 4109 May, [facility] [place] [facility] [address] [id number] [place] [address]- 1242 May, [facility] [place] [facility] [address] [id number] [place] [address]- 7018 Apr, [facility] [place] [facility] [address] [id number] [place] [address]- 9309 Apr, [facility] [place] [facility] [address] [id number] [place] [address]- 3711 Mar, [facility] [place] [facility] [address] [id number] [place] [address]- 9199 Mar, [facility] [place] [facility] [address] [id number] [place] [address]- 7256 Feb, [facility] [place] [facility] [address] [id number] [place] [address]- 3348 Feb, [facility] [place] [facility] [address] [id number] [place] [address]- 1979 Feb, [facility] [place] [facility] [address] [id number] [place] [address]- 0607 Feb, [facility] [place] [facility] [address] [id number] [place] [address]- 0117 Jan, [facility] [place] [facility] [address] [id number], [place] [address]- 7898 Jan, [facility] [place] [facility] [address] [id number], [place] [address]- 3709 Jan, [facility] [place] [facility] [address] [id number], [place] [address]- 3093 Jan, [facility] [place] [facility] [address] [id number], [place] [address]- 9233 Jan, [facility] [place] [facility] [address] [id number], [place] [address]- 4666 Dec, [facility] [place] [facility] [address] [id number], [place] [address]- 254 Dec, [facility] [place] [facility] [address] [id number], [place] [address]- 8033 Nov, [facility] [address] [id number] [place] [address]- 4383 Sep, [facility] [address] [id number] [place] [address]- 5875 August, [facility] [address] [id number] [place] [address]- 7342 August, [facility] [address] [id number] [place] [address]- 0847 Jul, [facility] [address] [id number] [place] [address]- 7420 Jul, [facility] [address] [id number] [place] [address]- 2737 Jul, [facility] [address] [id number] [place] [address]- 2813 Jul, [facility] [address] [id number] [place] [address]- 6551 Jul, [facility] [address] [id number] [place] [address]- 3157 Jul, [facility] [address] [id number] [place] [address]- 2592 Jul, [facility] [address] [id number] [place] [address]- 1465 Jun, [facility] [place] [facility] [address] [id number] [place] [address]- 1058 Jun, [facility] [place] [facility] [address] [id number] [place] [address]- 4391 May, [facility] [place] [facility] [address] [id number] [place] [address]- 4267 Apr, [facility] [place] [facility] [address] [id number] [place] [address]- 8499 Apr, [facility] [place] [facility] [address] [id number] [place] [address]- 5389 Mar, [facility] [place] [facility] [address] [id number] [place] [address]- 1213 Mar, [facility] [place] [facility] [address] [id number] [place] [address]- 0681 Mar, [facility] [place] [facility] [address] [id number] [place] [address]- 8088 Feb, [facility] [place] [facility] [address] [id number] [place] [address]- 1557 24 Feb, 2012 [facility] [place] [facility] [address] [id number] [place] [address]- 9593 Feb, [facility] [place] [facility] [address] [id number] [place] [address]- 1595 Feb, [facility] [place] [facility] [address] [id number] [place] [address]- 1823 Feb, [facility] [place] [facility] [address] [id number] [place] [address]- 5920 19 Feb, 2012 [facility] [place] [facility] [address] [id number] [place] [address]- 2652 16 Feb, 2012 [facility] [place] [facility] [address] [id number] [place] [address]- 6162 16 Feb, 2012 [facility] [place] [facility] [address] [id number] [place] [address]- 6556 14 Feb, 2012 [facility] [place] [facility] [address] [id number] [place] [address]- 9792 08 Feb, 2012 [facility] [place] [facility] [address] [id number] [place] [address]- 4470 08 Feb, 2012 [facility] [place] [facility] [address] [id number] [place] [address]- 7063 27 Dec, 2011 [facility] [place] [facility] [address] [id number] [place] [address]- 8019 Dec, [facility] [place] [facility] [address] [id number] [place] [address]- 2168 Nov, [facility] [place] [facility] [address] [id number] [place] [address]- 6360 Nov, [facility] [place] [facility] [address] [id number] [place] [address]- 7645 Oct, [facility] [place] [facility] [address] [id number] [place] [address]- 8124 Oct, [facility] [place] [facility] [address] [id number] [place] [address]- 6444 Sep, [facility] [place] [facility] [address] [id number] [place] [address]- 2781 May, [facility] [place] [facility] [address] [id number] [place] [address]- 2259 May, [facility] [place] [facility] [address] [id number] [place] [address]- 7527 May, [facility] [place] [facility] [address] [id number] [place] [address]- 1776 Apr, [facility] [place] [facility] [address] [id number] [place] [address] Mar, [facility] [place] [facility] [address] [id number] [place] [address] Mar, [facility] [place] [facility] [address] [id number] [place] [address] Feb, [facility] [place] [facility] [address] [id number] [place] [address] Feb, [facility] [place] [facility] [address] [id number] [place] [address] Feb, [facility] [place] [facility] [address] [id number] [place] [address] Jan, [facility] [place] [facility] [id number] [address] 14 Jan, 2011 [facility] [id number] [address] 19 Dec, 2010 [facility] [id number], [place] [address] Mar, [facility] [id number] [address] Feb, [facility] [id number], [place] [address] Feb, [facility] [id number] [place] [address] Feb, [facility] [id number], [place] [address] Jan, [facility] [id number] [address] Dec, [facility] [id number], [place] [address] Nov, [facility] [id number], [place] [address] Sep, [facility] [id number] [address] August, [facility] [id number], [place] [address] May, [facility] [id number], [place] [address] Mar, IMMUNIZATIONS No Known Immunizations SOCIAL HISTORY [...] suicide ideat and attempts. Rios Shepherd, Lacie, [place] last around 2006 Hospitalization History left foot swollen, stepped in [facility] ER 05/02/17
--- OUTSIDE RECORDS SUMMARY | 2018-06-21 20:28 | XMS REPORT ---
Author Author CORINNE BERGER [facility] Address [address] [place] [address] Care Team Providers Care Chemical Laboratory Tester Name Role Phone CORINNE BERGER Unavailable PROBLEMS Type Condition ICD9-CM Code UOU56-PC Code Onset Dates Condition Status SNOMED Code Problem Lumbago with sciatica, right side M54.41 Active 434504192604025 Problem Body mass index (BMI) of 40.0-44.9 in adult Z68.41 Active 137007624 Problem Other chronic pain G89.29 Active 01767490 Problem Hypothyroidism (acquired) E03.9 Active 44694936 Problem Degenerative joint disease M19.90 Active 129135584 Problem Fibrocystic changes of left breast N60.12 Active 03827261 Problem Panic disorder with agoraphobia F40.01 Active 30583053 Problem COPD (chronic obstructive pulmonary disease) J44.9 Active 37871799 Problem Depressive disorder, not elsewhere classified F32.9 Active 34731754 Problem Morbid (severe) obesity due to excess calories E66.01 Active 56056800147579 Problem 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 Active 849945041838773 Problem Right sciatic nerve pain M54.31 Active 57476481 Problem Pre-diabetes R73.03 Active 088585047 Problem Cigarette nicotine dependence without complication F17.210 Active 88636186 Problem Chronic pain G89.29 Active 78500244 Problem Acquired hypothyroidism E03.9 Active 195470678 Problem Opioid use disorder, moderate, dependence F11.20 Active 55258228 Problem Psychosis, unspecified psychosis type F29 Active 44034137 Problem Xanax use disorder, moderate F13.20 Active 588279979 Problem Personality disorder F60.9 Active 59597865 Problem Bipolar disease, chronic F31.9 Active 25836411 Problem Methamphetamine use disorder, severe, 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 Active 01045746 Problem Lumbago with sciatica, left side M54.42 Active 911913966 ALLERGIES Substance Reaction Event Type Date Status Tramadol HCl nausea and vomiting Drug Allergy Dec, Active Penicillin V Potassium anaphylaxis Drug Allergy Dec, Active Naproxen swelling Drug Allergy Dec, Active Keflex anaphylaxis Drug Allergy Dec, Active Ibuprofen nausea and vomitting Drug Allergy Dec, Active Aspirin hives Drug Allergy Dec, Active ENCOUNTERS Encounter Location Date Diagnosis [place] [id number] [place] [address] 54511- 9343 Mar, [place] [id number] [place] [address] 00286- 2459 Jan, [place] [address] 39770- 8513 Jan, Methamphetamine use disorder, severe, 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 ; Psychosis, unspecified psychosis type F29 ; Personality disorder F60.9 ; Opioid use disorder, moderate, dependence F11.20 ; Xanax use disorder, moderate F13.20 and BMI 45.0-49.9, adult Z68.42 [place] [id number] [place] [address] 85412- 7874 Jan, Liver enzyme elevation R74.8 and Hypothyroidism (acquired) E03.9 [place] [id number] [place] [address] 71131- 6342 Dec, BMI 40.0-44.9, adult Z68.41 ; Chronic pain G89.29 ; Degenerative joint disease M19.90 and Pre-diabetes R73.03 [place] [id number] [place] [address] 93159- 7141 Dec, [place] [id number] [place] [address] 95472- 6919 Dec, Methamphetamine use disorder, severe, 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 ; Psychosis, unspecified psychosis type F29 ; Personality disorder F60.9 ; Opioid use disorder, moderate, dependence F11.20 ; Xanax use disorder, moderate F13.20 and BMI 45.0-49.9, adult Z68.42 [place] [address] [place] [address] 6779 05 Dec, 2017 [facility] [id number] [place] [address] 41955- 5739 Oct, Breast pain N64.4 ; Fibrocystic changes of left breast N60.12 and Bilateral otitis media with effusion H65.93 [facility] [id number] [place] [address] 23431 -9784 Sep, 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 [facility] [id number] [place] [address] 43598- 0651 Sep, [place] [address] 64780- 1184 Sep, Methamphetamine use disorder, severe, 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 ; Psychosis, unspecified psychosis type F29 ; Personality disorder F60.9 ; Opioid use disorder, moderate, dependence F11.20 ; Xanax use disorder, moderate F13.20 and BMI 40.0-44.9, adult Z68.41 [facility] [id number] [place] [address] 92567- 4329 Sep, Depressive disorder, not elsewhere classified F32.9 and Psychosis, unspecified psychosis type F29 [place] [id number] [place] [address] 69335- 1506 August, [place] [id number] [place] [address] 16850- 7617 August, Depressive disorder, not elsewhere classified F32.9 and Psychosis, unspecified psychosis type F29 [place] [id number] [place] [address] 87541- 4323 August, [place] [id number] [place] [address] 78702- 3391 August, Lumbago with sciatica, right side M54.41 and Other chronic pain G89.29 [facility] [id number] [place] [address] 57758 -6235 Jul, Right sciatic nerve pain M54.31 [place] [id number] [place] [address] 02599- 7515 Jul, Acquired hypothyroidism E03.9 [place] [id number] [place] [address] 98964- 7891 Jul, Depressive disorder, not elsewhere classified F32.9 and Psychosis, unspecified psychosis type F29 [place] [address] 44627- 5530 Jul, Acquired hypothyroidism E03.9 ; Lumbago with sciatica, right side M54.41 and Lumbar radiculopathy, acute M54.16 [place] [id number] [place] [address] 98984- 8301 Jul, Methamphetamine use disorder, severe, 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 ; Psychosis, unspecified psychosis type F29 ; Personality disorder F60.9 ; Opioid use disorder, moderate, dependence F11.20 ; Xanax use disorder, moderate F13.20 and BMI 40.0-44.9, adult Z68.41 [place] [id number] [place] [address] 65138- 7720 Jun, Methamphetamine use disorder, severe, 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 ; Psychosis, unspecified psychosis type F29 ; Personality disorder F60.9 ; Opioid use disorder, moderate, dependence F11.20 and Xanax use disorder, moderate F13.20 [place] [id number] [place] [address] 59005- 0685 Jun, Depressive disorder, not elsewhere classified F32.9 and Psychosis, unspecified psychosis type F29 [place] [id number] [place] [address] 71285- 9673 Jun, Lumbar radiculopathy, acute M54.16 [place] [id number] [place] [address] 32530- 1971 Jun, Lumbar radiculopathy, acute M54.16 ; Strain of abdominal wall, initial encounter S39.011A and BMI 40.0-44.9, adult Z68.41 [place] [id number] [place] [address] 89255- 9818 Jun, [place] [id number] [place] [address] 63564- 8843 May, [place] [address] 66447- 9204 May, Methamphetamine use disorder, severe, 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 ; Psychosis, unspecified psychosis type F29 ; Personality disorder F60.9 ; Opioid use disorder, moderate, dependence F11.20 and Xanax use disorder, moderate F13.20 [place] [id number] [place] [address] 86418- 4102 May, [place] [address] 30470- 5969 May, [place] [address] 94336- 5444 May, Lumbago with sciatica, left side M54.42 ; Lumbago with sciatica, right side M54.41 ; Other chronic pain G89.29 ; Weight gain R63.5 ; Acquired hypothyroidism E03.9 and BMI 40.0-44.9, adult Z68.41 [place] [id number] [place] [address] 67878- 9733 Apr, Cigarette nicotine dependence without complication F17.210 [place] [id number] [place] [address] 87842- 9178 Apr, Acute bilateral low back pain without sciatica M54.5 [place] [id number] [place] [address] 94017- 9794 Apr, Methamphetamine use disorder, severe, 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 [address] 03054 -6614 12 Apr, 2017 Wheezing R06.2 and Bronchitis J40 [place] [address] [place] [id number]- 3867 02 Apr, 2017 Bronchitis J40 ; Cigarette nicotine dependence without complication F17.210 and Bipolar disease, chronic F31.9 [place] [address] 99793- 1673 Mar, Acquired hypothyroidism E03.9 [place] [address] 36309- 4634 Mar, Acquired hypothyroidism E03.9 [place] [address] 02864- 1174 Mar, Orthostatic hypotension I95.1 and Non-intractable vomiting with nausea, unspecified vomiting type R11.2 [place] [address] 84286- 6856 Mar, Strain of lumbar region, initial encounter S39.012A [place] [address] 91198- 8458 Mar, [facility] [place] [address] 66127 -6791 07 Mar, 2017 Bronchitis J40 [place] [address] 05205- 8682 05 Mar, 2017 Degenerative joint disease M19.90 ; Elevated LFTs R79.89 ; Adenopathy R59.1 ; Drug use F19.90 ; Pre-diabetes R73.03 and COPD (chronic obstructive pulmonary disease) J44.9 [facility] [place] [address] 50820 -5181 30 Feb, 2017 Left hand pain M79.642 and Contusion of left hand, initial encounter S60.222A [place] [address] 65062- 9668 Feb, Body aches R52 and Flu-like symptoms R68.89 [place] [address] 44986- 3304 Jan, [place] [address] 70281- 4294 Jan, Bipolar disease, chronic F31.9 ; Acquired hypothyroidism E03.9 and Encounter for immunization Z23 [facility] [address] 34435 -5288 05 Dec, 2016 Crushing injury of left wrist and hand, initial encounter S67.42XA [place] [address] 38428- 1378 Sep, [place] [address] 79439- 1712 Sep, Bipolar disease, chronic F31.9 ; Panic disorder with agoraphobia F40.01 and Proteinuria, unspecified type R80.9 [place] [address] 69638- 0325 August, [place] [address] 68853- 0577 August, Degenerative joint disease M19.90 ; Left-sided chest wall pain R07.89 ; Bipolar disease, chronic F31.9 ; Type 2 diabetes mellitus without complication, without long-term current use of insulin E11.9 ; Acquired hypothyroidism E03.9 and Acute cystitis without hematuria N30.00 [place] [id number] [place] [address] 57890- 2707 Mar, [place] [address] 62027- 2923 Feb, [facility] [address] 98104 -1096 Feb, Right hand pain M79.641 [facility] [address] [place] [address] [address]4635 Feb, Bronchitis J40 ; Acute non-recurrent pansinusitis J01.40 and Seasonal allergic rhinitis due to other allergic trigger J30.89 [facility] [id number] [place] [address] 16138- 6710 Dec, [facility] [address] [place] [address] 47467 -5445 Mar, Left-sided chest wall pain R07.89 and Chronic pain G89.29 [facility] [id number] [place] [address] 90095- 5428 Jul, [facility] [id number] [place] [address] 11690- 7358 Jul, [facility] [id number] [place] [address] 77505- 3524 May, [facility] [id number] [place] [address] 68272- 9631 May, [facility] [address] [place] [address] 29369- 3404 Apr, [facility] [id number] [place] [address] 72129- 3582 Apr, [facility] [address] [place] [address] 53342- 3770 Mar, [facility] [id number] [place] [address] 17137- 7124 Mar, [facility] [address] [place] [address] 26093- 4444 Feb, [facility] [id number] [place] [address] 85101- 6248 Feb, [facility] [address] [address]- 9066 Jan, [facility] [id number] [place] [address] 07858- 4078 28 Jan, 2014 [facility] [place] [facility] [address] [id number] [place] [address]- 7923 28 Jan, 2014 [facility] [place] [facility] [address] [id number] [place] [address]- 5289 28 Jan, 2014 [facility] [place] [facility] [address] [id number] [place] [address]- 1985 15 Jan, 2014 [facility] [place] [facility] [address] [id number] [place] [address]- 4262 15 Jan, 2014 [facility] [place] [facility] [address] [id number] [place] [address]- 2762 19 Dec, 2013 [facility] [place] [facility] [address] [id number] [place] [address]- 6843 19 Dec, 2013 [facility] [place] [facility] [address] [id number] [place] [address]- 9875 19 Dec, 2013 [facility] [place] [facility] [address] [id number] [place] [address]- 9412 19 Dec, 2013 [facility] [place] [facility] [address] [id number] [place] [address]- 4473 18 Dec, 2013 [facility] [place] [facility] [address] [facility] [id number] [place] [address]- 9908 18 Dec, 2013 [facility] [place] [facility] [address] [id number] [address]- 8136 16 Dec, 2013 [facility] [place] [facility] [address] [id number] [address]- 0664 16 Dec, 2013 [facility] [place] [facility] [address] [id number], [place] [address]- 3935 17 Sep, 2013 [facility] [place] [facility] [address] [id number] [address]- 3401 17 Sep, 2013 [facility] [place] [facility] [address] [facility] [id number] [place] [address]- 6425 15 Jul, 2013 [facility] [place] [facility] [address] [id number] [place] [address]- 0965 15 Jul, 2013 [facility] [place] [facility] [address] [id number] [place] [address]- 0734 Jul, [facility] [place] [facility] [address] [id number] [place] [address]- 9636 Jul, [facility] [place] [facility] [address] [id number] [place] [address]- 0754 Jul, [facility] [place] [facility] [address] [id number] [place] [address]- 4883 Jul, [facility] [place] [facility] [address] [id number] [place] [address]- 2313 Jul, [facility] [place] [facility] [address] [id number] [place] [address]- 8603 Jul, [facility] [place] [facility] [address] [id number] [place] [address]- 8329 Jun, [facility] [place] [facility] [address] [id number] [place] [address]- 3532 Jun, [facility] [place] [facility] [address] [id number] [place] [address]- 5980 May, [facility] [place] [facility] [address] [id number] [place] [address]- 5279 May, [facility] [place] [facility] [address] [id number] [place] [address]- 7910 May, [facility] [place] [facility] [address] [id number] [place] [address]- 2301 May, [facility] [place] [facility] [address] [id number] [place] [address]- 8439 Apr, [facility] [place] [facility] [address] [id number] [place] [address]- 2592 Apr, [facility] [place] [facility] [address] [id number] [address]- 8426 Mar, [facility] [place] [facility] [address] [id number] [place] [address]- 4965 Mar, [facility] [place] [facility] [address] [id number] [place] [address]- 4326 Feb, [facility] [place] [facility] [address] [id number] [place] [address] 2542 Feb, [facility] [place] [facility] [address] [id number], [place] [address]- 8512 Feb, [facility] [place] [facility] [address] [id number] [place] [address]- 2399 Feb, [facility] [place] [facility] [address] [id number], [place] [address]- 3176 Jan, [facility] [place] [facility] [address] [id number] [address]- 0336 Jan, [facility] [place] [facility] [address] [id number], [place] [address]- 6718 Jan, [facility] [place] [facility] [address] [id number] [address]- 2140 Jan, [facility] [place] [facility] [address] [id number], [place] [address]- 7971 Jan, [facility] [place] [facility] [address] [id number] [address]- 0330 Dec, [facility] [place] [facility] [address] [id number] [address]- 2546 Dec, [facility] [place] [facility] [address] [id number] [place] [address] 2547 Nov, [facility] [place] [facility] [address] [id number], [place] [address] 2546 Sep, [facility] [place] [facility] [address] [id number] [place] [address]- 2546 August, [facility] [place] [facility] [address] [id number] [place] [address]- 4316 August, [facility] [address] [id number] [place] [address]- 9981 Jul, [facility] [address] [id number] [place] [address]- 7665 Jul, [facility] [address] [id number] [place] [address]- 8081 Jul, [facility] [address] [id number] [place] [address]- 7622 Jul, [facility] [address] [id number] [place] [address]- 3271 Jul, [facility] [address] [id number] [place] [address]- 7337 Jul, [facility] [address] [id number] [place] [address]- 0465 Jul, [facility] [address] [id number] [place] [address]- 0190 Jun, [facility] [address] [id number] [place] [address]- 6447 Jun, [facility] [address] [id number] [place] [address]- 2927 May, [facility] [address] [id number] [place] [address]- 3521 Apr, [facility] [address] [id number] [place] [address]- 2219 Apr, [facility] [address] [id number] [place] [address]- 8646 Mar, [facility] [address] [id number] [place] [address]- 6095 Mar, [facility] [address] [id number] [place] 7326 Mar, [facility] [place] [facility] [address] [id number] [place] [address]- 9103 Feb, [facility] [place] [facility] [address] [id number] [place] [address]- 5713 Feb, [facility] [place] [facility] [address] [id number] [place] [address]- 2970 Feb, [facility] [place] [facility] [address] [id number] [place] [address]- 2724 Feb, [facility] [place] [facility] [address] [id number] [place] [address]- 8031 Feb, [facility] [place] [facility] [address] [id number] [place] [address]- 1420 Feb, [facility] [place] [facility] [address] [id number] [place] [address]- 1572 16 Feb, 2012 [facility] [place] [facility] [address] [id number] [place] [address]- 6688 16 Feb, 2012 [facility] [place] [facility] [address] [id number] [place] [address]- 3356 14 Feb, 2012 [facility] [place] [facility] [address] [id number] [address]- 9387 Feb, [facility] [place] [facility] [address] [id number], [place] [address]- 8937 Feb, [facility] [place] [facility] [address] [id number] [address]- 4010 27 Dec, 2011 [facility] [place] [facility] [address] [id number] [place] [address]- 6799 07 Dec, 2011 [facility] [place] [facility] [address] [id number] [address]- 8424 30 Nov, 2011 [facility] [place] [facility] [address] [id number], [place] [address]- 8557 Nov, [facility] [place] [facility] [address] [id number] [address]- 3315 Oct, [facility] [address] [id number] [place] [address]- 0572 Oct, [facility] [place] [facility] [address] [id number] [place] [address]- 8136 Sep, [facility] [place] [facility] [address] [id number] [place] [address]- 6256 May, [facility] [place] [facility] [address] [id number] [place] [address]- 6269 May, [facility] [place] [facility] [address] [id number] [place] [address]- 0498 May, [facility] [place] [facility] [address] [id number] [place] [address] Apr, [facility] [address] [id number] [place] [address] Mar, [facility] [place] [facility] [address] [id number] [place] [address] Mar, [facility] [place] [facility] [address] [id number] [place] [address] Feb, [facility] [place] [facility] [address] [facility] [id number] [place] [address] Feb, [facility] [place] [facility] [address] [id number] [place] [address] Feb, [facility] [place] [facility] [address] [id number] [address] Jan, [facility] [place] [facility] [address] [id number] [place] [address] Jan, [facility] [place] [facility] [address] [id number] [place] [address] Dec, [facility] [place] [facility] [address] [id number] [address] Mar, [facility] [id number] [address] Feb, [facility] [id number] [address] Feb, [facility] [id number] [address] Feb, [facility] [id number] [place] [address] Jan, [facility] [id number] [address] Dec, [facility] [id number] [place] [address] Nov, [facility] [id number] [place] [address] Sep, [facility] [id number] [place] [address] August, [facility] [id number] [address] May, [facility] [id number] [address] Mar, IMMUNIZATIONS No Known Immunizations SOCIAL HISTORY Never Assessed REASON FOR VISIT Diabetes - [facility] PLAN OF CARE VITAL SIGNS Height 63 in 2018-01-04 Weight 252.0 lbs 2018-01-04 Temperature 97.9 degrees Fahrenheit 2018-01-04 Heart Rate 94 bpm 2018-01-04 Respiratory Rate 20 2018-01-04 Oximetry 93 % 2018-01-04 BMI 44.63 kg/m2 2018-01-04 Blood pressure systolic 128 mmHg 2018-01-04 Blood pressure diastolic 80 mmHg 2018-01-04 MEDICATIONS Medication Instructions Dosage Frequency Start Date End Date Duration Status ProAir HFA 108 (90 Base) MCG/ACT Inhalation every 6 hrs 2 puffs as needed 6h 05 Mar, 2017 Active Nabumetone 500 mg Orally Twice a day 1 tablet 12h 27 Dec, 2017 Mar, 30 day(s) Active Synthroid 50 mcg Orally Once a day 1 tablet on an empty stomach in the morning 24h 24 Aug, 2016 Active Active Seroquel 300 MG Orally Once a day 1 tablet 24h 30 Active Cyclobenzaprine HCl 10 mg Orally 2 times a day 1 tablet as needed 12h 27 Dec, 2017 Active RESULTS No Results PROCEDURES Procedure Date Ordered Result Body Site GLYCATED HEMOGLOBIN TEST Jan 04, 2018 [facility] Jan 04, 2018 INSTRUCTIONS MEDICATIONS ADMINISTERED No Known Medications [...] History left foot swollen, stepped in [facility] 05/02/17
--- OUTSIDE RECORDS SUMMARY | 2018-06-21 20:28 | XMS REPORT ---
Author Author CORINNE BERGER Organization [facility] Address [address] [place] [address] Care Team Providers Care Nursing Director Name Role Phone CORINNE BERGER Unavailable PROBLEMS Type Condition ICD9-CM Code BPV73-VP Code Onset Dates Condition Status SNOMED Code Problem Lumbago with sciatica, right side M54.41 Active 025884465339228 Problem Body mass index (BMI) of 40.0-44.9 in adult Z68.41 Active 008585154 Problem Other chronic pain G89.29 Active 77910013 Problem Hypothyroidism (acquired) E03.9 Active 26879519 Problem Degenerative joint disease M19.90 Active 297565756 Problem Fibrocystic changes of left breast N60.12 Active 95727797 Problem Panic disorder with agoraphobia F40.01 Active 57790939 Problem COPD (chronic obstructive pulmonary disease) J44.9 Active 56853832 Problem Depressive disorder, not elsewhere classified F32.9 Active 00282375 Problem Morbid (severe) obesity due to excess calories E66.01 Active 85406613194176 Problem 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 Active 318946929205013 Problem Right sciatic nerve pain M54.31 Active 94281491 Problem Pre-diabetes R73.03 Active 607467949 Problem Cigarette nicotine dependence without complication F17.210 Active 43369745 Problem Chronic pain G89.29 Active 58513280 Problem Acquired hypothyroidism E03.9 Active 304557441 Problem Opioid use disorder, moderate, dependence F11.20 Active 59607865 Problem Psychosis, unspecified psychosis type F29 Active 05448746 Problem Xanax use disorder, moderate F13.20 Active 732230984 Problem Personality disorder F60.9 Active 97735011 Problem Bipolar disease, chronic F31.9 Active 44259367 Problem Methamphetamine use disorder, severe, 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 Active 83540533 Problem Lumbago with sciatica, left side M54.42 Active 166661660 ALLERGIES No Information ENCOUNTERS Encounter Location Date Diagnosis [place] [id number] [place] [address] 29739- 2723 Jan, [place] [address] 41887- 2806 Jan, [place] [address] 67933- 7884 Jan, Liver enzyme elevation R74.8 and Hypothyroidism (acquired) E03.9 [place] [address] 41475- 0131 Dec, BMI 40.0-44.9, adult Z68.41 ; Chronic pain G89.29 ; Degenerative joint disease M19.90 and Pre-diabetes R73.03 [place] [address] 39155- 7146 Dec, [place] [address] 06900- 0814 Dec, Methamphetamine use disorder, severe, 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 ; Psychosis, unspecified psychosis type F29 ; Personality disorder F60.9 ; Opioid use disorder, moderate, dependence F11.20 ; Xanax use disorder, moderate F13.20 and BMI 45.0-49.9, adult Z68.42 [place] [id number] [place] [address] 28006- 5792 Dec, [place] [id number] [place] [address] 90744- 5128 Oct, Breast pain N64.4 ; Fibrocystic changes of left breast N60.12 and Bilateral otitis media with effusion H65.93 [facility] [address] 12985 -8449 Sep, 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 [place] [id number] [place] [address] 36813- 5777 Sep, [place] [address] 72535- 6338 Sep, Methamphetamine use disorder, severe, 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 ; Psychosis, unspecified psychosis type F29 ; Personality disorder F60.9 ; Opioid use disorder, moderate, dependence F11.20 ; Xanax use disorder, moderate F13.20 and BMI 40.0-44.9, adult Z68.41 [place] [id number] [place] [address] 06824- 2988 Sep, Depressive disorder, not elsewhere classified F32.9 and Psychosis, unspecified psychosis type F29 [place] [id number] [place] [address] 70192- 0454 August, [place] [id number] [place] [address] 45747- 2925 August, Depressive disorder, not elsewhere classified F32.9 and Psychosis, unspecified psychosis type F29 [place] [id number] [place] [address] 80736- 3937 August, [place] [id number] [place] [address] 66520- 3908 August, Lumbago with sciatica, right side M54.41 and Other chronic pain G89.29 [facility] [id number] [place] [address] 26946 -7273 Jul, Right sciatic nerve pain M54.31 [place] [id number] [place] [address] 13913- 5487 Jul, Acquired hypothyroidism E03.9 [place] [id number] [place] [address] 70964- 8072 Jul, Depressive disorder, not elsewhere classified F32.9 and Psychosis, unspecified psychosis type F29 [place] [id number] [place] [address] 59351- 9435 Jul, Acquired hypothyroidism E03.9 ; Lumbago with sciatica, right side M54.41 and Lumbar radiculopathy, acute M54.16 [place] [id number] [place] [address] 33155- 9311 Jul, Methamphetamine use disorder, severe, 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 ; Psychosis, unspecified psychosis type F29 ; Personality disorder F60.9 ; Opioid use disorder, moderate, dependence F11.20 ; Xanax use disorder, moderate F13.20 and BMI 40.0-44.9, adult Z68.41 [place] [id number] [place] [address] 58407- 4776 Jun, Methamphetamine use disorder, severe, 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 ; Psychosis, unspecified psychosis type F29 ; Personality disorder F60.9 ; Opioid use disorder, moderate, dependence F11.20 and Xanax use disorder, moderate F13.20 [place] [id number] [place] [address] 81716- 5208 Jun, Depressive disorder, not elsewhere classified F32.9 and Psychosis, unspecified psychosis type F29 [place] [id number] [place] [address] 35231- 1805 Jun, Lumbar radiculopathy, acute M54.16 [place] [address] [place]86[place]- 5465 Jun, Lumbar radiculopathy, acute M54.16 ; Strain of abdominal wall, initial encounter S39.011A and BMI 40.0-44.9, adult Z68.41 [place] [id number] [place] [address] 81885- 0601 Jun, [place] [id number] [place] [address] 61556- 9671 May, [place] [id number] [place] [address] 69399- 3453 May, Methamphetamine use disorder, severe, 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 ; Psychosis, unspecified psychosis type F29 ; Personality disorder F60.9 ; Opioid use disorder, moderate, dependence F11.20 and Xanax use disorder, moderate F13.20 [place] [id number] [place] [address] 01068- 6666 May, [place] [address] 79057- 2600 May, [place] [id number] [place] [address] 62619- 8903 May, Lumbago with sciatica, left side M54.42 ; Lumbago with sciatica, right side M54.41 ; Other chronic pain G89.29 ; Weight gain R63.5 ; Acquired hypothyroidism E03.9 and BMI 40.0-44.9, adult Z68.41 [place] [address] 82450- 2094 Apr, Cigarette nicotine dependence without complication F17.210 [place] [address] 16557- 6981 Apr, Acute bilateral low back pain without sciatica M54.5 [place] [address] 58888- 2612 Apr, Methamphetamine use disorder, severe, 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 ; Psychosis, unspecified psychosis type F29 ; Personality disorder F60.9 ; Opioid use disorder, moderate, dependence F11.20 and Xanax use disorder, moderate F13.20 [facility] [id number] [place] [address] 47040 -1250 Apr, Wheezing R06.2 and Bronchitis J40 [place] [id number] [place] [address] 51892- 8364 Apr, Bronchitis J40 ; Cigarette nicotine dependence without complication F17.210 and Bipolar disease, chronic F31.9 [place] [id number] [place] [address] 53372- 0638 Mar, Acquired hypothyroidism E03.9 [place] [id number] [place] [address] 18785- 7839 Mar, Acquired hypothyroidism E03.9 [place] [id number] [place] [address] 35239- 5111 28 Mar, 2017 Orthostatic hypotension I95.1 and Non-intractable vomiting with nausea, unspecified vomiting type R11.2 [place] [id number] [place] [address] 26899- 3343 14 Mar, 2017 Strain of lumbar region, initial encounter S39.012A [address] 31253- 0808 11 Mar, 2017 [facility] [address] [place] [address] 31488 -8695 Mar, Bronchitis J40 [address] 62501- 9609 05 Mar, 2017 Degenerative joint disease M19.90 ; Elevated LFTs R79.89 ; Adenopathy R59.1 ; Drug use F19.90 ; Pre-diabetes R73.03 and COPD (chronic obstructive pulmonary disease) J44.9 [facility] [address] 98122 -5221 30 Feb, 2017 Left hand pain M79.642 and Contusion of left hand, initial encounter S60.222A [place] [id number] [place] [address] 09451- 9356 07 Feb, 2017 Body aches R52 and Flu-like symptoms R68.89 [place] [id number] [place] [address] 30511- 9159 Jan, [place] [id number] [place] [address] 76203- 5675 Jan, Bipolar disease, chronic F31.9 ; Acquired hypothyroidism E03.9 and Encounter for immunization Z23 [facility] [address] [place] [id number] [place] [address] 22433 -8901 05 Dec, 2016 Crushing injury of left wrist and hand, initial encounter S67.42XA [place] [id number] [place] [address]- 9162 Sep, [place] [id number] [place] [address] 67678- 8760 Sep, Bipolar disease, chronic F31.9 ; Panic disorder with agoraphobia F40.01 and Proteinuria, unspecified type R80.9 [place] [id number] [place] [address] 78493- 2033 August, [place] [address] 45360- 0953 August, Degenerative joint disease M19.90 ; Left-sided chest wall pain R07.89 ; Bipolar disease, chronic F31.9 ; Type 2 diabetes mellitus without complication, without long-term current use of insulin E11.9 ; Acquired hypothyroidism E03.9 and Acute cystitis without hematuria N30.[address] 45759- 6832 Mar, [place] [id number] [place] [address] 03607- 1849 Feb, [facility] [place] [id number] [place] [address] 25541 -0077 Feb, Right hand pain M79.641 [facility] [place] [id number] [place] [address] 66831 -0054 Feb, Bronchitis J40 ; Acute non-recurrent pansinusitis J01.40 and Seasonal allergic rhinitis due to other allergic trigger J30.89 [place] [id number] [place] [address] 20900- 3247 Dec, [facility] [address] 07087 -6566 Mar, Left-sided chest wall pain R07.89 and Chronic pain G89.29 [place] [id number] [place] [address] 65944- 9430 Jul, [place] [address] [place] [id number] [place] [address]- 0188 Jul, [facility] [place] [facility] [address] [id number] [place] [address]- 5563 May, [facility] [place] [facility] [address] [id number] [place] [address]- 8006 May, [facility] [place] [facility] [address] [id number] [place] [address]- 3727 Apr, [facility] [place] [facility] [address] [id number] [place] [address]- 0239 Apr, [facility] [place] [facility] [address] [id number] [place] [address]- 5679 Mar, [facility] [place] [facility] [address] [id number] [place] [address]- 8823 Mar, [facility] [place] [facility] [address] [id number] [place] [address]- 1172 Feb, [facility] [place] [facility] [address] [id number] [place] [address]- 2916 Feb, [facility] [place] [facility] [address] [id number] [place] [address]- 0870 Jan, [facility] [place] [facility] [address] [id number] [place] [address]- 1817 Jan, [facility] [place] [facility] [address] [id number] [place] [address]- 1988 Jan, [facility] [place] [facility] [address] [id number] [place] 5994 28 Jan, 2014 [facility] [place] [facility] [address] [id number] [place] [address]- 6250 15 Jan, 2014 [facility] [place] [facility] [address] [id number] [place] [address]- 3062 15 Jan, 2014 [facility] [place] [facility] [address] [id number] [place] 1312 Dec, [facility] [place] [facility] [address] [id number] [place] [address]- 9729 19 Dec, 2013 [facility] [place] [facility] [address] [id number] [place] [address]- 0104 19 Dec, 2013 [facility] [place] [facility] [address] [id number] [place] [address]- 6046 19 Dec, 2013 [facility] [place] [facility] [address] [id number] [place] [address]- 6344 18 Dec, 2013 [facility] [place] [facility] [address] [id number] [place] [address]- 6606 18 Dec, 2013 [facility] [place] [facility] [address] [id number] [place] [address]- 7850 16 Dec, 2013 [facility] [place] [facility] [address] [id number] [place] [address]- 7971 16 Dec, 2013 [facility] [place] [facility] [address] [id number] [place] [address]- 4287 17 Sep, 2013 [facility] [place] [facility] [address] [id number] [place] [address]- 6720 17 Sep, 2013 [facility] [place] [facility] [address] [id number], [place] [address]- 2224 15 Jul, 2013 [facility] [place] [facility] [address] [id number], [place] [address]- 4233 15 Jul, 2013 [facility] [place] [facility] [address] [id number], [place] [address]- 5923 10 Jul, 2013 [facility] [place] [facility] [address] [id number] [place] [address]- 8552 10 Jul, 2013 [facility] [place] [facility] [address] [id number] [place] [address]- 2187 03 Jul, 2013 [facility] [place] [facility] [address] [id number], [place] [address]- 5909 03 Jul, 2013 [facility] [place] [facility] [address] [id number], [place] [address]- 7097 Jul, [facility] [place] [facility] [address] [id number] [place] [address]- 4294 Jul, [facility] [place] [facility] [address] [id number] [place] [address]- 6754 Jun, [facility] [place] [facility] [address] [id number] [place] [address]- 1608 Jun, [facility] [place] [facility] [address] [id number] [place] [address]- 5774 May, [facility] [place] [facility] [address] [id number] [place] 8760 May, [facility] [place] [facility] [address] [facility] [id number] [place] [address]- 2050 May, [facility] [place] [facility] [address] [id number] [place] [address]- 2452 May, [facility] [place] [facility] [address] [id number] [place] [address]- 5683 Apr, [facility] [place] [facility] [address] [id number] [place] [address]- 0875 Apr, [facility] [place] [facility] [address] [facility] [id number] [place] [address]- 3750 Mar, [facility] [place] [facility] [address] [id number] [place] [address]- 0045 Mar, [facility] [place] [facility] [address] [id number], [place] [address]- 2209 Feb, [facility] [place] [facility] [address] [id number] [place] [address]- 4583 Feb, [facility] [place] [facility] [address] [facility] [id number] [place] [address]- 7170 Feb, [facility] [place] [facility] [address] [facility] [id number], [place] [address]- 4711 Feb, [facility] [place] [facility] [address] [id number] [place] [address] 2549 Jan, [facility] [address] [id number] [place] [address]- 9142 Jan, [facility] [place] [facility] [address] [id number] [place] [address]- 2544 Jan, [facility] [address] [id number] [place] [address]- 4199 Jan, [facility] [address] [id number] [place] [address]- 7053 Jan, [facility] [address] [id number] [place] [address]- 1132 Dec, [facility] [address] [id number] [place] [address]- 6928 Dec, [facility] [address] [id number] [place] [address]- 7435 Nov, [facility] [address] [id number] [place] [address]- 5313 Sep, [facility] [address] [id number] [place] [address]- 7261 August, [facility] [place] [facility] [address] [id number] [place] [address]- 5147 August, [facility] [address] [id number] [place] [address]- 2652 Jul, [facility] [place] [facility] [address] [id number] [place] [address]- 1717 Jul, [facility] [place] [facility] [address] [id number] [place] [address]- 7253 Jul, [facility] [place] [facility] [address] [id number] [place] [address]- 5003 Jul, [facility] [place] [facility] [address] [id number] [place] [address]- 3011 Jul, [facility] [place] [facility] [address] [id number] [place] [address]- 6826 Jul, [facility] [place] [facility] [address] [id number] [place] [address]- 9076 Jul, [facility] [place] [facility] [address] [id number] [place] [address]- 9356 Jun, [facility] [place] [facility] [address] [id number] [place] [address]- 2765 Jun, [facility] [place] [facility] [address] [id number] [place] [address]- 5937 May, [facility] [place] [facility] [address] [id number] [place] [address]- 1620 Apr, [facility] [place] [facility] [address] [id number] [place] [address]- 5570 Apr, [facility] [place] [facility] [address] [id number] [place] [address]- 8561 Mar, [facility] [place] [facility] [address] [id number] [place] [address]- 2471 Mar, [facility] [place] [facility] [address] [id number] [place] [address]- 5562 Mar, [facility] [place] [facility] [address] [id number] [place] [address]- 1818 Feb, [facility] [place] [facility] [address] [id number] [place] [address]- 3189 Feb, [facility] [place] [facility] [address] [id number] [place] [address]- 9667 Feb, [facility] [place] [facility] [address] [id number] [place] [address]- 6973 Feb, [facility] [place] [facility] [address] [id number] [place] [address]- 2066 Feb, [facility] [place] [facility] [address] [id number] [place] [address]- 3428 19 Feb, 2012 [facility] [place] [facility] [address] [id number] [place] [address]- 6306 16 Feb, 2012 [facility] [place] [facility] [address] [id number] [place] [address] 2546 16 Feb, 2012 [facility] [place] [facility] [address] [id number] [place] [address]- 2356 14 Feb, 2012 [facility] [place] [facility] [address] [id number] [place] [address]- 3007 08 Feb, 2012 [facility] [place] [facility] [address] [id number] [place] [address]- 5032 08 Feb, 2012 [facility] [place] [facility] [address] [id number] [place] [address]- 2807 27 Dec, 2011 [facility] [place] [facility] [address] [id number] [place] [address]- 3149 07 Dec, 2011 [facility] [place] [facility] [address] [id number] [place] [address]- 9759 30 Nov, 2011 [facility] [place] [facility] [address] [id number] [place] [address]- 0837 Nov, [facility] [place] [facility] [address] [id number] [place] [address]- 2720 31 Oct, 2011 [facility] [place] [facility] [address] [id number] [place] [address]- 4170 Oct, [facility] [place] [facility] [address] [id number] [place] [address]- 1669 14 Sep, 2011 [facility] [place] [facility] [address] [id number] [place] [address]- 8016 28 May, 2011 [facility] [place] [facility] [address] [id number] [place] [address]- 2546 15 May, 2011 [facility] [place] [facility] [address] [id number] [place] [address]- 6121 May, [facility] [place] [facility] [address] [id number] [place] [address]- 8697 Apr, [facility] [place] [facility] [address] [id number] [place] [address] Mar, [facility] [place] [facility] [address] [id number] [place] [address] Mar, [facility] [place] [facility] [address] [id number] [place] [address] Feb, [facility] [place] [facility] [address] [id number] [place] [address] Feb, [facility] [place] [facility] [address] [id number] [place] [address] Feb, [facility] [place] [facility] [address] [id number] [place] [address] Jan, [facility] [place] [facility] [address] [id number], [place] [address] Jan, [facility] [place] [facility] [address] [id number], [place] [address] Dec, [facility] [place] [facility] [address] [id number], [place] [address] Mar, [facility] [place] [facility] [address] [id number], [place] [address] Feb, [facility] [place] [facility] [address] [id number], [place] [address] 10 Feb, 2009 [facility] [place] [facility] [address] [id number], [place] [address] Feb, [facility] [place] [facility] [address] [id number], [place] [address] 20 Jan, 2009 [facility] [place] [facility] [address] [id number], [place] [address] 16 Dec, 2008 [facility] [place] [facility] [address] [facility] [id number] [place] [address] 10 Nov, 2008 [facility] [address] [facility] [id number], [place] [address] Sep, [facility] [address] [facility] [id number], [place] [address] August, [facility] [address] [facility] [id number], [place] [address] May, [facility] [address] [facility] [id number], [place] [address] Mar, IMMUNIZATIONS No Known Immunizations SOCIAL HISTORY Never Assessed REASON FOR VISIT Eye exam PLAN OF CARE VITAL SIGNS MEDICATIONS Unknown [...] left foot swollen, stepped in [facility] 05/02/17
--- OUTSIDE RECORDS SUMMARY | 2018-06-21 20:29 | XMS REPORT ---
Author Author CORINNE BERGER Organization [facility] Address [address] [place] [address] Care Team Providers Care Desktop Support Specialist Name Role Phone CORINNE BERGER Unavailable PROBLEMS Type Condition ICD9-CM Code [id number] Code Onset Dates Condition Status SNOMED Code Problem Lumbago with sciatica, left side M54.42 Active 006170151 Problem Other chronic pain G89.29 Active 79823032 Problem Lumbago with sciatica, right side M54.41 Active [id number] Problem Fibrocystic changes of left breast N60.12 Active 12573425 Problem Panic disorder with agoraphobia F40.01 Active 91576328 Problem 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 Active [id number] Problem COPD (chronic obstructive pulmonary disease) J44.9 Active 13184802 Problem Bipolar disease, chronic F31.9 Active 18278003 Problem Morbid (severe) obesity due to excess calories E66.01 Active 32140230146995 Problem Body mass index (BMI) of 40.0-44.9 in adult Z68.41 Active 683186110 Problem Right sciatic nerve pain M54.31 Active 37395835 Problem Depressive disorder, not elsewhere classified F32.9 Active 48736806 Problem Acquired hypothyroidism E03.9 Active 995956103 Problem Pre-diabetes R73.03 Active 911142546 Problem Degenerative joint disease M19.90 Active 055928894 Problem Chronic pain G89.29 Active 91182190 Problem Methamphetamine use disorder, severe, 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 Active 72039791 Problem Opioid use disorder, moderate, dependence F11.20 Active 45598199 Problem Cigarette nicotine dependence without complication F17.210 Active 79583379 Problem Psychosis, unspecified psychosis type F29 Active 39939100 Problem Xanax use disorder, moderate F13.20 Active 461990995 Problem Personality disorder F60.9 Active 13168241 ALLERGIES No Information ENCOUNTERS Encounter Location Date Diagnosis [facility] [id number] [place] [address] 12091- 3379 Jan, [facility] [id number] [place] [address] 27841- 5682 Dec, BMI 40.0-44.9, adult Z68.41 ; Chronic pain G89.29 ; Degenerative joint disease M19.90 and Pre-diabetes R73.03 [place] [id number] [place] [address] 54381- 5113 Dec, [place] [id number] [place] [address] 50729- 1890 Dec, Methamphetamine use disorder, severe, 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 ; Psychosis, unspecified psychosis type F29 ; Personality disorder F60.9 ; Opioid use disorder, moderate, dependence F11.20 ; Xanax use disorder, moderate F13.20 and BMI 45.0-49.9, adult Z68.42 [place] [id number] [place] [address] 25399- 0779 Dec, [place] [id number] [place] [address] 64426- 4871 Oct, Breast pain N64.4 ; Fibrocystic changes of left breast N60.12 and Bilateral otitis media with effusion H65.93 [facility] [id number] [place] [address] 66687 -6800 Sep, 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 [place] [id number] [place] [address] 00700- 2509 Sep, [place] [id number] [place] [address] 59287- 9179 Sep, Methamphetamine use disorder, severe, 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 ; Psychosis, unspecified psychosis type F29 ; Personality disorder F60.9 ; Opioid use disorder, moderate, dependence F11.20 ; Xanax use disorder, moderate F13.20 and BMI 40.0-44.9, adult Z68.41 [place] [id number] [place] [address] 51491- 9752 Sep, Depressive disorder, not elsewhere classified F32.9 and Psychosis, unspecified psychosis type F29 [facility] [id number] [place] [address] 13218- 9340 August, [facility] [id number] [place] [address] 14658- 0398 August, Depressive disorder, not elsewhere classified F32.9 and Psychosis, unspecified psychosis type F29 [facility] [id number] [place] [address] 44252- 2304 August, [facility] [address] 40885- 1698 August, Lumbago with sciatica, right side M54.41 and Other chronic pain G89.29 [facility] [id number] [place] [address] 68411 -6090 Jul, Right sciatic nerve pain M54.31 [place] [id number] [place] [address] 25021- 1173 Jul, Acquired hypothyroidism E03.9 [place] [id number] [place] [address] 76786- 4932 Jul, Depressive disorder, not elsewhere classified F32.9 and Psychosis, unspecified psychosis type F29 [place] [id number] [place] [address] 85491- 7467 Jul, Acquired hypothyroidism E03.9 ; Lumbago with sciatica, right side M54.41 and Lumbar radiculopathy, acute M54.16 [facility] [id number] [place] [address] 69520- 8068 Jul, Methamphetamine use disorder, severe, 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 ; Psychosis, unspecified psychosis type F29 ; Personality disorder F60.9 ; Opioid use disorder, moderate, dependence F11.20 ; Xanax use disorder, moderate F13.20 and BMI 40.0-44.9, adult Z68.41 [facility] [id number] [place] [address] 57542- 0264 Jun, Methamphetamine use disorder, severe, 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 ; Psychosis, unspecified psychosis type F29 ; Personality disorder F60.9 ; Opioid use disorder, moderate, dependence F11.20 and Xanax use disorder, moderate F13.20 [place] [id number] [place] [address] 34498- 2188 Jun, Depressive disorder, not elsewhere classified F32.9 and Psychosis, unspecified psychosis type F29 [place] [id number] [place] [address] 46665- 0751 Jun, Lumbar radiculopathy, acute M54.16 [place] [id number] [place] [address] 33485- 4376 Jun, Lumbar radiculopathy, acute M54.16 ; Strain of abdominal wall, initial encounter S39.011A and BMI 40.0-44.9, adult Z68.41 [place] [id number] [place] [address] 99725- 9662 Jun, [place] [id number] [place] [address] 87244- 2013 May, [place] [id number] [place] [address] 64149- 8146 May, Methamphetamine use disorder, severe, 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 ; Psychosis, unspecified psychosis type F29 ; Personality disorder F60.9 ; Opioid use disorder, moderate, dependence F11.20 and Xanax use disorder, moderate F13.20 [facility] [id number] [place] [address] 59633- 8758 May, [facility] [id number] [place] [address] 91342- 7389 May, [facility] [id number] [place] [address] 00430- 8212 May, Lumbago with sciatica, left side M54.42 ; Lumbago with sciatica, right side M54.41 ; Other chronic pain G89.29 ; Weight gain R63.5 ; Acquired hypothyroidism E03.9 and BMI 40.0-44.9, adult Z68.41 [facility] [id number] [place] [address] 43937- 5668 Apr, Cigarette nicotine dependence without complication F17.210 [place] [address] 38232- 3544 Apr, Acute bilateral low back pain without sciatica M54.5 [place] [address] 897901- 8825 Apr, Methamphetamine use disorder, severe, 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 ; Psychosis, unspecified psychosis type F29 ; Personality disorder F60.9 ; Opioid use disorder, moderate, dependence F11.20 and Xanax use disorder, moderate F13.20 [facility] [id number] [place] [address] 15342 -1322 Apr, Wheezing R06.2 and Bronchitis J40 [place] [address] 83225- 7962 Apr, Bronchitis J40 ; Cigarette nicotine dependence without complication F17.210 and Bipolar disease, chronic F31.9 [place] [address] 50595- 3086 Mar, Acquired hypothyroidism E03.9 [place] [address] 35199- 0538 Mar, Acquired hypothyroidism E03.9 [place] [address] 10097- 4630 Mar, Orthostatic hypotension I95.1 and Non-intractable vomiting with nausea, unspecified vomiting type R11.2 [place] [id number] [place] [address] 80018- 0688 Mar, Strain of lumbar region, initial encounter S39.012A [facility] [id number] [place] [address] 44730- 7050 Mar, [facility] [address] 76793 -9881 Mar, Bronchitis J40 [place] [id number] [place] [address] 69380- 7619 Mar, Degenerative joint disease M19.90 ; Elevated LFTs R79.89 ; Adenopathy R59.1 ; Drug use F19.90 ; Pre-diabetes R73.03 and COPD (chronic obstructive pulmonary disease) J44.9 [facility] [place] [id number] [place] [address] 08590 -0163 Feb, Left hand pain M79.642 and Contusion of left hand, initial encounter S60.222A [address] 44286- 0144 Feb, Body aches R52 and Flu-like symptoms R68.89 [place] [id number] [place] [address] 31973- 6930 Jan, [place] [id number] [place] [address] 37838- 0986 Jan, Bipolar disease, chronic F31.9 ; Acquired hypothyroidism E03.9 and Encounter for immunization Z23 [facility] [id number] [place] [address] 45217 -1403 05 Dec, 2016 Crushing injury of left wrist and hand, initial encounter S67.42XA [place] [id number] [place] [address] 18320- 4584 Sep, [address] 20738- 4103 Sep, Bipolar disease, chronic F31.9 ; Panic disorder with agoraphobia F40.01 and Proteinuria, unspecified type R80.9 [id number] [place] [address] 41089- 1124 August, [place] [address] 14092- 2065 August, Degenerative joint disease M19.90 ; Left-sided chest wall pain R07.89 ; Bipolar disease, chronic F31.9 ; Type 2 diabetes mellitus without complication, without long-term current use of insulin E11.9 ; Acquired hypothyroidism E03.9 and Acute cystitis without hematuria N30.00 [place] [id number] [place] [address] 75342- 1435 Mar, [place] [address] 77767- 0672 Feb, [facility] [place] [address] 15003 -9305 Feb, Right hand pain M79.641 [facility] [address] 35092 -2973 Feb, Bronchitis J40 ; Acute non-recurrent pansinusitis J01.40 and Seasonal allergic rhinitis due to other allergic trigger J30.89 [place] [id number] [place] [address] 45842- 9906 Dec, [facility] [place] [id number] [place] [address] 94599 -2893 Mar, Left-sided chest wall pain R07.89 and Chronic pain G89.29 [place] [id number] [place] [address] 33888- 0444 Jul, [place] [address] 69969- 2156 Jul, [place] [id number] [place] [address] 73820- 3351 May, [place] [id number] [place] [address] 68356- 7291 May, [place] [address] [id number] [place] [address]- 8564 Apr, [facility] [place] [facility] [address] [id number] [place] 7882 Apr, [facility] [place] [facility] [address] [id number] [place] [address]- 0008 Mar, [facility] [place] [facility] [address] [id number] [place] [address]- 4265 Mar, [facility] [place] [facility] [address] [id number] [place] [address]- 7309 Feb, [facility] [place] [facility] [address] [id number] [place] [address]- 8102 Feb, [facility] [place] [facility] [address] [id number] [place] [address]- 4841 Jan, [facility] [place] [facility] [address] [id number] [place] [address]- 4916 Jan, [facility] [place] [facility] [address] [id number] [place] [address]- 6527 28 Jan, 2014 [facility] [place] [facility] [address] [id number] [place] [address]- 5789 28 Jan, 2014 [facility] [place] [facility] [address] [id number] [place] [address]- 3854 15 Jan, 2014 [facility] [place] [facility] [address] [id number] [place] [address]- 4839 15 Jan, 2014 [facility] [place] [facility] [address] [id number] [place] [address]- 1076 19 Dec, 2013 [facility] [place] [facility] [address] [id number] [place] [address]- 3396 19 Dec, 2013 [facility] [place] [facility] [address] [id number] [place] [address]- 6753 19 Dec, 2013 [facility] [place] [facility] [address] [id number] [place] [address]- 3963 19 Dec, 2013 [facility] [place] [facility] [address] [id number] [place] [address]- 5919 18 Dec, 2013 [facility] [place] [facility] [address] [id number] [place] [address]- 1709 18 Dec, 2013 [facility] [place] [facility] [address] [id number] [place] [address]- 2679 16 Dec, 2013 [facility] [place] [facility] [address] [id number] [place] [address]- 3416 16 Dec, 2013 [facility] [place] [facility] [address] [id number] [place] [address]- 0290 17 Sep, 2013 [facility] [place] [facility] [address] [id number] [place] [address]- 5259 17 Sep, 2013 [facility] [place] [facility] [address] [id number] [place] [address]- 2548 15 Jul, 2013 [facility] [place] [facility] [address] [id number] [place] [address]- 8373 15 Jul, 2013 [facility] [place] [facility] [address] [id number] [place] [address]- 3773 10 Jul, 2013 [facility] [place] [facility] [address] [id number] [place] [address]- 5197 10 Jul, 2013 [facility] [place] [facility] [address] [id number] [place] [address]- 1915 Jul, [facility] [place] [facility] [address] [id number], [place] [address]- 7345 Jul, [facility] [place] [facility] [address] [id number] [place] [address]- 2226 Jul, [facility] [place] [facility] [address] [id number] [place] [address]- 5440 Jul, [facility] [place] [facility] [address] [id number] [place] [address]- 1514 Jun, [facility] [place] [facility] [address] [id number] [place] [address]- 1898 Jun, [facility] [address] [id number] [place] [address]- 2329 May, [facility] [place] [facility] [address] [id number] [place] [address]- 1206 May, [facility] [place] [facility] [address] [id number] [place] [address]- 1886 May, [facility] [place] [facility] [address] [id number] [place] [address]- 9001 May, [facility] [place] [facility] [address] [facility] [id number] [place] [address]- 7934 Apr, [facility] [place] [facility] [address] [facility] [id number] [place] 8916 Apr, [facility] [place] [facility] [address] [facility] [id number] [place] [address]- 8603 Mar, [facility] [place] [facility] [address] [facility] [id number] [place] [address]- 8288 Mar, [facility] [place] [facility] [id number] [address]- 9402 Feb, [facility] [place] [facility] [address] [facility] [id number] [place] [address]- 0581 Feb, [facility] [place] [facility] [address] [facility] [id number] [place] [address]- 3386 Feb, [facility] [place] [facility] [address] [facility] [id number] [place] [address]- 9509 Feb, [facility] [place] [facility] [address] [facility] [id number] [place] [address]- 5163 Jan, [facility] [place] [facility] [address] [facility] [id number] [place] [address]- 2546 Jan, [facility] [place] [facility] [address] [facility] [id number], [place] [address]- 0162 Jan, [facility] [address] [id number] [place] [address]- 5620 Jan, [facility] [place] [facility] [address] [id number] [place] [address]- 6502 Jan, [facility] [place] [facility] [address] [id number] [place] [address]- 7724 Dec, [facility] [place] [facility] [address] [id number] [place] [address]- 1288 Dec, [facility] [address] [id number] [place] [address]- 8065 Nov, [facility] [place] [facility] [address] [id number] [place] [address]- 2070 Sep, [facility] [place] [facility] [address] [id number] [place] [address]- 2451 August, [facility] [address] [id number] [place] [address]- 5837 August, [facility] [place] [facility] [address] [id number] [place] [address]- 9137 Jul, [facility] [place] [facility] [address] [id number], [place] [address]- 6422 Jul, [facility] [place] [facility] [address] [id number], [place] [address]- 9777 Jul, [facility] [place] [facility] [address] [id number], [place] [address]- 3152 Jul, [facility] [place] [facility] [address] [id number] [place] [address]- 3612 Jul, [facility] [place] [facility] [address] [id number], [place] [address]- 2474 Jul, [facility] [place] [facility] [address] [id number], [place] [address]- 6597 Jul, [facility] [place] [facility] [address] [id number], [place] [address]- 0407 Jun, [facility] [address] [id number] [place] [address]- 9402 Jun, [facility] [place] [facility] [address] [id number] [place] [address]- 3345 May, [facility] [place] [facility] [address] [id number] [place] [address]- 3614 Apr, [facility] [place] [facility] [address] [id number] [place] [address]- 3828 Apr, [facility] [place] [facility] [address] [id number] [place] [address]- 6031 Mar, [facility] [place] [facility] [address] [id number] [place] [address]- 3077 Mar, [facility] [address] [facility] [id number] [place] [address]- 9082 Mar, [facility] [place] [facility] [address] [id number] [place] [address]- 4855 Feb, [facility] [place] [facility] [address] [id number] [place] [address]- 7818 Feb, [facility] [place] [facility] [address] [facility] [id number] [place] [address]- 4983 Feb, [facility] [place] [facility] [address] [id number] [place] [address]- 5060 Feb, [facility] [place] [facility] [address] [id number], [place] [address]- 0371 Feb, [facility] [place] [facility] [address] [id number] [place] [address]- 3038 Feb, [facility] [place] [facility] [address] [id number] [place] [address]- 4538 16 Feb, 2012 [facility] [place] [facility] [address] [facility] [id number] [place] [address]- 6311 Feb, [facility] [place] [facility] [address] [id number] [place] [address]- 1809 14 Feb, 2012 [facility] [place] [facility] [address] [id number] [place] [address]- 5652 08 Feb, 2012 [facility] [place] [facility] [address] [id number] [place] [address]- 7386 08 Feb, 2012 [facility] [place] [facility] [address] [id number] [place] [address]- 2662 27 Dec, 2011 [facility] [place] [facility] [address] [id number] [place] [address]- 2038 Dec, [facility] [place] [facility] [address] [id number] [place] [address]- 6500 Nov, [facility] [place] [facility] [address] [id number] [place] [address]- 6005 Nov, [facility] [place] [facility] [address] [id number] [place] [address]- 1888 Oct, [facility] [place] [facility] [address] [id number] [place] [address]- 5659 Oct, [facility] [place] [facility] [address] [id number] [place] [address]- 2929 Sep, [facility] [place] [facility] [address] [id number] [place] [address]- 0681 May, [facility] [place] [facility] [address] [id number] [place] [address]- 5143 May, [facility] [place] [facility] [address] [id number] [place] [address]- 8637 May, [facility] [place] [facility] [address] [id number] [place] [address]- 7146 Apr, [facility] [place] [facility] [address] [id number] [place] [address]- 5576 Mar, [facility] [place] [facility] [address] [id number], [place] [address]- 3726 Mar, [facility] [place] [facility] [address] [id number] [place] [address]- 2516 Feb, [facility] [place] [facility] [address] [id number], [place] [address]- 1170 Feb, [facility] [place] [facility] [address] [facility] [id number] [place] [address]- 9732 Feb, [facility] [place] [facility] [address] [id number], [place] [address]- 4765 Jan, [facility] [place] [facility] [address] [id number] [place] [address]- 3809 Jan, [facility] [place] [facility] [address] [id number], [place] [address] Dec, [facility] [place] [facility] [address] [facility] [id number], [place] [address] Mar, [facility] [place] [facility] [address] [id number], [place] [address] Feb, [facility] [place] [facility] [address] [id number], [place] [address] Feb, [facility] [place] [facility] [address] [id number], [place] [address] Feb, [facility] [place] [facility] [address] [id number], [place] [address] Jan, [facility] [place] [facility] [address] [id number], [place] [address] Dec, 2008 [facility] [place] [facility] [address] [id number], [place] [address] Nov, [facility] [place] [facility] [address] [facility] [id number], [place] [address] Sep, [facility] [place] [facility] [address] [facility] [id number], [place] [address] August, [facility] [place] [facility] [address] [facility] [id number] [place] [address] May, [facility] [address] [facility] [id number] [place] [address] Mar, IMMUNIZATIONS No Known Immunizations SOCIAL HISTORY Never Assessed REASON FOR VISIT Triage PLAN OF CARE VITAL SIGNS Height 63 in 2017-12-14 Blood pressure systolic 122 mmHg 2017-12-14 Blood pressure diastolic 80 mmHg 2017-12-14 MEDICATIONS Unknown Medications RESULTS No Results PROCEDURES [...] Hospitalization History left foot swollen, stepped in [facility] ER 05/02/17
--- OUTSIDE RECORDS SUMMARY | 2018-06-21 20:29 | XMS REPORT ---
Author Author CINDY MARCIAL Organization [facility] Address [address] [place] [address] Care Team Providers Care Electrical System Specialist Name Role Phone NEERUCHRIS CUELLOA Unavailable PROBLEMS Type Condition ICD9-CM Code RTF45-HF Code Onset Dates Condition Status SNOMED Code Problem Lumbago with sciatica, left side M54.42 Active 684267928 Problem Other chronic pain G89.29 Active 55708927 Problem Lumbago with sciatica, right side M54.41 Active [id number] Problem Fibrocystic changes of left breast N60.12 Active 89065285 Problem Panic disorder with agoraphobia F40.01 Active 98441381 Problem 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 Active [id number] Problem COPD (chronic obstructive pulmonary disease) J44.9 Active 67280577 Problem Bipolar disease, chronic F31.9 Active 39251960 Problem Morbid (severe) obesity due to excess calories E66.01 Active 45003490174232 Problem Body mass index (BMI) of 40.0-44.9 in adult Z68.41 Active 746847413 Problem Right sciatic nerve pain M54.31 Active 99142393 Problem Depressive disorder, not elsewhere classified F32.9 Active 27542834 Problem Acquired hypothyroidism E03.9 Active 202703021 Problem Pre-diabetes R73.03 Active 149898943 Problem Degenerative joint disease M19.90 Active 300508641 Problem Chronic pain G89.29 Active 63136245 Problem Methamphetamine use disorder, severe, 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 Active 47818997 Problem Opioid use disorder, moderate, dependence F11.20 Active 68200541 Problem Cigarette nicotine dependence without complication F17.210 Active 09581179 Problem Psychosis, unspecified psychosis type F29 Active 37760658 Problem Xanax use disorder, moderate F13.20 Active 724610496 Problem Personality disorder F60.9 Active 98362680 ALLERGIES Substance Reaction Event Type Date Status Tramadol HCl nausea and vomiting Drug Allergy Dec, Active Penicillin V Potassium anaphylaxis Drug Allergy Dec, Active Naproxen swelling Drug Allergy Dec, Active Keflex anaphylaxis Drug Allergy Dec, Active Ibuprofen nausea and vomitting Drug Allergy Dec, Active Aspirin hives Drug Allergy Dec, Active ENCOUNTERS Encounter Location Date Diagnosis [facility] [address], [place] [address] Jan, [facility] [id number] [place] [address] 16430- 1579 Dec, BMI 40.0-44.9, adult Z68.41 ; Chronic pain G89.29 ; Degenerative joint disease M19.90 and Pre-diabetes R73.03 [place] [id number] [place] [address] 27761- 1475 Dec, [place] [id number] [place] [address] 59603- 6172 Dec, Methamphetamine use disorder, severe, 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 ; Psychosis, unspecified psychosis type F29 ; Personality disorder F60.9 ; Opioid use disorder, moderate, dependence F11.20 ; Xanax use disorder, moderate F13.20 and BMI 45.0-49.9, adult Z68.42 [facility] [id number] [place] [address] 46828- 6762 Dec, [place] [id number] [place] [address] 74067- 6511 Oct, Breast pain N64.4 ; Fibrocystic changes of left breast N60.12 and Bilateral otitis media with effusion H65.93 [facility] [id number] [place] [address] 79644 -0549 Sep, 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 [facility] [id number] [place] [address] 76475- 5914 Sep, [facility] [id number] [place] [address] 29084- 2723 07 Dwain, 2018 Methamphetamine use disorder, severe, 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 ; Psychosis, unspecified psychosis type F29 ; Personality disorder F60.9 ; Opioid use disorder, moderate, dependence F11.20 ; Xanax use disorder, moderate F13.20 and BMI 40.0-44.9, adult Z68.41 [place] [id number] [place] [address] 69268- 2977 Sep, Depressive disorder, not elsewhere classified F32.9 and Psychosis, unspecified psychosis type F29 [place] [address] 80249- 7123 August, [place] [address] 61141- 1514 August, Depressive disorder, not elsewhere classified F32.9 and Psychosis, unspecified psychosis type F29 [place] [address] 29633- 2622 August, [place] [address] 30102- 4785 August, Lumbago with sciatica, right side M54.41 and Other chronic pain G89.29 [facility] [address] 35[address] -8521 Jul, Right sciatic nerve pain M54.31 [place] [address] 37861- 6987 Jul, Acquired hypothyroidism E03.9 [place] [address] 99921- 7408 Jul, Depressive disorder, not elsewhere classified F32.9 and Psychosis, unspecified psychosis type F29 [place] [address] 76531- 8072 Jul, Acquired hypothyroidism E03.9 ; Lumbago with sciatica, right side M54.41 and Lumbar radiculopathy, acute M54.16 [place] [address] 76343- 3607 Jul, Methamphetamine use disorder, severe, 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 ; Psychosis, unspecified psychosis type F29 ; Personality disorder F60.9 ; Opioid use disorder, moderate, dependence F11.20 ; Xanax use disorder, moderate F13.20 and BMI 40.0-44.9, adult Z68.41 [place] [id number] [place] [address] 07581- 4141 Jun, Methamphetamine use disorder, severe, 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 ; Psychosis, unspecified psychosis type F29 ; Personality disorder F60.9 ; Opioid use disorder, moderate, dependence F11.20 and Xanax use disorder, moderate F13.20 [place] [id number] [place] [address] 63598- 7150 Jun, Depressive disorder, not elsewhere classified F32.9 and Psychosis, unspecified psychosis type F29 [place] [id number] [place] [address] 87822- 7158 Jun, Lumbar radiculopathy, acute M54.16 [place] [id number] [place] [address] 71180- 8231 Jun, Lumbar radiculopathy, acute M54.16 ; Strain of abdominal wall, initial encounter S39.011A and BMI 40.0-44.9, adult Z68.41 [place] [id number] [place] [address] 35807- 2192 Jun, [place] [id number] [place] [address] 46343- 6844 May, [place] [id number] [place] [address] 64771- 3780 May, Methamphetamine use disorder, severe, 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0-44.9, adult Z68.41 [place] [address] 348152- 0287 Apr, Cigarette nicotine dependence without complication F17.210 [place] [id number] [place] [address] 07933- 0965 Apr, Acute bilateral low back pain without sciatica M54.5 [place] [id number] [place] [address] 35485- 6124 Apr, Methamphetamine use disorder, severe, 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 ; Psychosis, unspecified psychosis type F29 ; Personality disorder F60.9 ; Opioid use disorder, moderate, dependence F11.20 and Xanax use disorder, moderate F13.20 [facility] [id number] [place] [address] 84826 -6601 Apr, Wheezing R06.2 and Bronchitis J40 [place] [id number] [place] [address] 23405- 8910 Apr, Bronchitis J40 ; Cigarette nicotine dependence without complication F17.210 and Bipolar disease, chronic F31.9 [place] [id number] [place] [address] 88086- 6309 Mar, Acquired hypothyroidism E03.9 [place] [id number] [place] [address] 61136- 5332 Mar, Acquired hypothyroidism E03.9 [place] [address] 02653- 8108 28 Mar, 2017 Orthostatic hypotension I95.1 and Non-intractable vomiting with nausea, unspecified vomiting type R11.[address] 57787- 8849 14 Mar, 2017 Strain of lumbar region, initial encounter S39.012A [address] 03239- 2495 Mar, [facility] [address] [place] [address] 68402 -6409 Mar, Bronchitis J40 [address] 45707- 5694 05 Mar, 2017 Degenerative joint disease M19.90 ; Elevated LFTs R79.89 ; Adenopathy R59.1 ; Drug use F19.90 ; Pre-diabetes R73.03 and COPD (chronic obstructive pulmonary disease) J44.9 [facility] [address] [address] -5530 30 Feb, 2017 Left hand pain M79.642 and Contusion of left hand, initial encounter S60.222A [address] 44802- 2384 Feb, Body aches R52 and Flu-like symptoms R68.[address] 78570- 4835 Jan, [address] 84411- 3494 Jan, Bipolar disease, chronic F31.9 ; Acquired hypothyroidism E03.9 and Encounter for immunization Z23 [facility] [address] [place] [address] 19183 -4941 05 Dec, 2016 Crushing injury of left wrist and hand, initial encounter S67.42XA [address] 18014- 6345 Sep, [place] [id number] [place] [address] 24862- 7235 Sep, Bipolar disease, chronic F31.9 ; Panic disorder with agoraphobia F40.01 and Proteinuria, unspecified type R80.9 [place] [id number] [place] [address] 90825- 0946 August, [address] 26546- 8370 August, Degenerative joint disease M19.90 ; Left-sided chest wall pain R07.89 ; Bipolar disease, chronic F31.9 ; Type 2 diabetes mellitus without complication, without long-term current use of insulin E11.9 ; Acquired hypothyroidism E03.9 and Acute cystitis without hematuria N30.[address] 42794- 3990 Mar, [address] 82748- 3163 Feb, [facility] [address] 93456 -2163 Feb, Right hand pain M79.641 [facility] [place] [id number] [place] [address] 82968 -4335 Feb, Bronchitis J40 ; Acute non-recurrent pansinusitis J01.40 and Seasonal allergic rhinitis due to other allergic trigger J30.89 [place] [id number] [place] [address] 15915- 6315 Dec, [facility] [address] 9[address]86 -8409 Mar, Left-sided chest wall pain R07.89 and Chronic pain G89.[address] 67803- 0372 Jul, [address] 05907- 5065 Jul, [facility] [place] [facility] [address] [id number] [place] [address]- 1857 May, [facility] [place] [facility] [address] [id number] [place] [address]- 5078 May, [facility] [place] [facility] [address] [id number] [place] [address]- 7580 Apr, [facility] [place] [facility] [address] [id number] [place] [address]- 1227 Apr, [facility] [place] [facility] [address] [id number] [place] [address]- 6143 Mar, [facility] [place] [facility] [address] [id number] [place] [address]- 7364 Mar, [facility] [place] [facility] [address] [id number] [place] [address]- 9240 Feb, [facility] [place] [facility] [address] [id number] [place] [address]- 1526 Feb, [facility] [place] [facility] [address] [id number] [place] [address]- 1219 Jan, [facility] [place] [facility] [address] [id number] [place] [address]- 5253 Jan, [facility] [place] [facility] [address] [id number], [place] [address]- 3315 Jan, [facility] [place] [facility] [address] [id number], [place] [address]- 0274 Jan, [facility] [place] [facility] [address] [id number] [place] [address]- 8312 Jan, [facility] [place] [facility] [address] [id number], [place] [address]- 3095 Jan, [facility] [place] [facility] [address] [id number] [place] [address]- 6037 Dec, [facility] [place] [facility] [address] [id number] [place] [address]- 7285 19 Sep, 2013 [facility] [place] [facility] [address] [id number] [place] [address]- 6932 19 Dec, 2013 [facility] [place] [facility] [address] [id number] [place] [address]- 4936 19 Dec, 2013 [facility] [place] [facility] [address] [id number] [place] [address]- 7301 18 Dec, 2013 [facility] [place] [facility] [address] [id number] [place] [address]- 6415 18 Dec, 2013 [facility] [place] [facility] [address] [id number] [place] [address]- 8556 16 Dec, 2013 [facility] [place] [facility] [address] [id number] [place] [address]- 1762 16 Dec, 2013 [facility] [place] [facility] [address] [id number] [place] [address]- 6901 17 Sep, 2013 [facility] [place] [facility] [address] [id number] [place] [address]- 5385 17 Sep, 2013 [facility] [place] [facility] [address] [id number] [place] [address]- 8702 15 Jul, 2013 [facility] [place] [facility] [address] [id number] [place] [address]- 3634 15 Jul, 2013 [facility] [place] [facility] [address] [id number] [place] [address]- 4435 10 Jul, 2013 [facility] [place] [facility] [address] [id number] [place] [address]- 5242 10 Jul, 2013 [facility] [place] [facility] [address] [id number] [place] [address]- 1812 03 Jul, 2013 [facility] [place] [facility] [address] [id number] [place] [address]- 2232 03 Jul, 2013 [facility] [place] [facility] [address] [id number] [place] [address]- 2596 Jul, [facility] [place] [facility] [address] [id number] [place] [address]- 4003 Jul, [facility] [place] [facility] [address] [id number] [place] [address]- 2840 Jun, [facility] [place] [facility] [address] [id number] [place] [address]- 0261 Jun, [facility] [place] [facility] [address] [id number] [place] [address]- 5620 May, [facility] [place] [facility] [address] [id number] [place] [address]- 6517 May, [facility] [place] [facility] [address] [id number] [place] [address]- 7225 May, [facility] [place] [facility] [address] [id number] [place] [address]- 8671 May, [facility] [place] [facility] [address] [id number] [place] [address]- 4022 Apr, [facility] [place] [facility] [address] [id number] [place] [address]- 3596 Apr, [facility] [place] [facility] [address] [id number] [place] [address]- 1210 Mar, [facility] [place] [facility] [address] [id number] [place] [address]- 9787 Mar, [facility] [place] [facility] [address] [id number], [place] [address]- 8452 Feb, [facility] [place] [facility] [address] [id number] [place] [address]- 8062 Feb, [facility] [place] [facility] [address] [id number] [place] [address]- 5466 Feb, [facility] [place] [facility] [address] [id number], [place] [address]- 5012 Feb, [facility] [place] [facility] [address] [id number], [place] [address]- 0761 Jan, [facility] [address] [id number] [place] [address]- 9060 Jan, [facility] [address] [id number], [place] [address]- 6220 Jan, [facility] [address] [id number] [place] [address]- 9703 Jan, [facility] [address] [id number] [place] [address]- 0403 Jan, [facility] [address] [id number] [place] [address]- 1019 Dec, [facility] [address] [id number] [place] [address]- 1708 Dec, [facility] [address] [id number], [place] [address]- 0816 Nov, [facility] [address] [id number] [place] [address]- 1377 Sep, [facility] [address] [id number], [place] [address]- 7869 August, [facility] [address] [id number] [address]- 3467 August, [facility] [address] [id number], [place] [address]- 5311 Jul, [facility] [place] [facility] [address] [id number], [place] [address]- 0928 Jul, [facility] [place] [facility] [address] [id number], [place] [address]- 0842 Jul, [facility] [place] [facility] [address] [facility] [id number], [place] [address]- 5640 Jul, [facility] [place] [facility] [address] [facility] [id number], [place] [address]- 5115 Jul, [facility] [place] [facility] [address] [id number] [place] [address]- 4109 Jul, [facility] [place] [facility] [address] [id number] [place] [address]- 5256 Jul, [facility] [place] [facility] [address] [id number] [place] [address] 2546 Jun, [facility] [place] [facility] [address] [id number] [place] [address]- 8106 Jun, [facility] [place] [facility] [address] [id number] [place] [address]- 1258 May, [facility] [place] [facility] [address] [id number] [place] [address]- 7923 Apr, [facility] [place] [facility] [address] [id number] [place] [address]- 8156 Apr, [facility] [place] [facility] [address] [id number] [place] [address]- 1992 Mar, [facility] [place] [facility] [address] [id number] [place] [address]- 6641 Mar, [facility] [place] [facility] [address] [id number] [place] [address]- 4033 Mar, [facility] [place] [facility] [address] [id number] [place] [address]- 7651 Feb, [facility] [place] [facility] [address] [id number] [place] [address]- 2646 Feb, [facility] [place] [facility] [address] [id number] [place] [address] 2549 Feb, [facility] [place] [facility] [address] [id number] [place] [address] 2546 Feb, [facility] [place] [facility] [address] [id number] [place] [address] 2549 Feb, [facility] [place] [facility] [address] [id number] [place] [address]- 9733 Feb, 2012 [facility] [place] [facility] [address] [id number] [place] [address]- 4929 16 Feb, 2012 [facility] [place] [facility] [address] [id number] [place] [address]- 9146 16 Feb, 2012 [facility] [place] [facility] [address] [id number] [place] [address]- 7846 14 Feb, 2012 [facility] [place] [facility] [address] [id number] [place] [address]- 7785 Feb, [facility] [place] [facility] [address] [id number] [place] [address]- 0913 08 Feb, 2012 [facility] [place] [facility] [address] [id number] [place] [address]- 7693 27 Dec, 2011 [facility] [place] [facility] [address] [id number] [place] [address]- 3956 Dec, [facility] [place] [facility] [address] [id number] [place] [address]- 8464 30 Nov, 2011 [facility] [place] [facility] [address] [id number] [place] [address]- 3160 Nov, [facility] [place] [facility] [address] [facility] [id number] [place] [address]- 6745 Oct, [facility] [place] [facility] [address] [id number] [place] [address]- 4296 Oct, [facility] [place] [facility] [address] [id number], [place] [address]- 7969 Sep, [facility] [place] [facility] [address] [id number] [place] [address]- 0006 May, [facility] [place] [facility] [address] [id number] [place] [address]- 9036 15 May, 2011 [facility] [place] [facility] [address] [facility] [id number] [place] [address]- 2546 May, [facility] [place] [facility] [address] [id number] [place] [address]- 7985 Apr, [facility] [address] [id number] [place] [address]- 4022 Mar, [facility] [place] [facility] [address] [id number] [place] [address]- 1976 Mar, [facility] [address] [id number] [place] [address]- 3408 Feb, [facility] [place] [facility] [address] [id number] [place] [address]- 8870 Feb, [facility] [id number] [place] [address], [place] [address]- 0440 Feb, [facility] [place] [facility] [address] [id number] [place] [address]- 6723 Jan, [facility] [place] [facility] [address] [id number] [place] [address]- 7945 Jan, [facility] [address] [id number] [place] [address] Dec, [facility] [place] [facility] [address] [facility] [id number] [place] [address] Mar, [facility] [place] [facility] [address] [facility] [id number] [place] [address] Feb, [facility] [place] [facility] [address] [id number] [place] [address] Feb, [facility] [place] [facility] [address] [id number] [place] [address] Feb, [facility] [place] [facility] [address] [id number] [place] [address] Jan, [facility] [place] [facility] [address] [id number] [place] [address] 16 Dec, 2008 [facility] [place] [facility] [address] [id number] [place] [address] Nov, [facility] [address] [facility] [id number], [place] [address] Sep, [facility] [address] [facility] [id number], [place] [address] August, [facility] [address] [facility] [id number], [place] [address] May, [facility] [address] [facility] [id number], [place] [address] Mar, IMMUNIZATIONS No Known Immunizations SOCIAL HISTORY Never Assessed REASON FOR VISIT f/u Yuliet PLAN OF CARE Activity Details Follow Up 6 Weeks Reason: VITAL SIGNS Height 63 in 2017-12-14 Weight 256.3 lbs 2017-12-14 Temperature 98.5 degrees Fahrenheit 2017-12-14 Heart Rate 88 bpm 2017-12-14 Respiratory Rate 22 2017-12-14 BMI 45.40 kg/m2 2017-12-14 Blood pressure systolic 140 mmHg 2017-12-14 Blood pressure diastolic 102 mmHg 2017-12-14 MEDICATIONS Medication Instructions Dosage Frequency Start Date End Date Duration Status Valium 5 mg Orally Twice a day, for procedure 1 tablet as needed August, Not-Taking Active Tizanidine HCl 4 MG Orally Three times a day 1 tablet as needed 8h 30 Active Diclofenac Sodium 75 MG Orally Twice a day 1 tablet with food or milk 12h August, 7 Dec, 2017 30 day(s) Active ProAir HFA 108 (90 Base) MCG/ACT Inhalation every 6 hrs 2 puffs as needed 6h Mar, Active Synthroid 50 mcg Orally Once a day 1 tablet on an empty stomach in the morning 24h August, Active Womens One Daily - Not-Taking Seroquel 300 MG Orally Once a day 1 tablet 24h Apr, Active HydrOXYzine HCl 100 mg Orally three times a day as needed for anxiety 1 tablet as needed May, Active PredniSONE 5 MG (21) Orally Once a day take each days dose at one time each day. 24h 25 Sep, 2017 Not-Taking Sudafed 30 MG Orally every 6 hrs 1 tablet as needed 6h Oct, Not-Taking Zofran 4 MG Orally every 4 hrs 1 tablet as needed 4h Oct, Active RESULTS No Results PROCEDURES No Known [...] left foot swollen, stepped in [facility] 05/02/17
--- OUTSIDE RECORDS SUMMARY | 2018-06-21 20:46 | XMS REPORT | Continuity of Care Document ---
Author Author [facility] Address Unknown Phone Unavailable Allergies Active Description Code Type Severity Reaction Onset Reported/Identified Relationship to Patient Clinical Status Yes aspirin Drug Allergy N/A N/A 05/28/2008 Yes Keflex Drug Allergy N/A N/A 05/28/2008 Yes Penicillins Drug Allergy N/A N/A 05/28/2008 Yes aspirin Drug Allergy 05/28/2008 Yes Keflex Drug Allergy 05/28/2008 Yes Penicillins Drug Allergy 05/28/2008 Yes Penicillins [id number] Drug Allergy Mild N/A 06/21/2018 Yes aspirin [id number] Drug Allergy Unknown N/A 06/21/2018 Yes cephalexin [id number] Drug Allergy Unknown N/A 06/21/2018 Yes folic acid [id number] Drug Allergy Unknown N/A 06/21/2018 Yes iron [id number] Drug Allergy Unknown N/A 06/21/2018 Yes penicillin G [id number] Drug Allergy Unknown N/A 06/21/2018 Yes tramadol [id number] Drug Allergy Unknown N/A 06/21/2018 Medications There is no data. Problems Date Dx Coded Attending Type Code Diagnosis Diagnosed By 10/15/2007 HENRY MCINTOSH APRN 599.0 Urinary Tract Infection 10/15/2007 599.0 Urinary Tract Infection 10/15/2007 JUSTIN ALSTON DO 599.0 Urinary Tract Infection 10/15/2007 599.0 Urinary Tract Infection 10/15/2007 HENRY MCINTOSH APRN 599.0 Urinary Tract Infection 10/15/2007 599.0 Urinary Tract Infection 10/15/2007 HENRY MCINTOSH APRN 599.0 Urinary Tract Infection 10/15/2007 HENRY MCINTOSH APRN 599.0 Urinary Tract Infection 10/15/2007 HENRY MCINTOSH APRN 599.0 Urinary Tract Infection 10/15/2007 ALSTON DO, JUSTIN K 599.0 Urinary Tract Infection 10/15/2007 EVANGELINA SEN APRN A 599.0 Urinary Tract Infection 10/15/2007 KIMI HILARIO APRN 599.0 Urinary Tract Infection 10/15/2007 JUSTIN ALSTON DO 599.0 Urinary Tract Infection 10/15/2007 PRASAD PAVON, LACIE E 599.0 Urinary Tract Infection 10/15/2007 PRASAD PAVON, LACIE De Souza 599.0 Urinary Tract Infection 10/15/2007 PRASAD PAVON, LACIE E 599.0 Urinary Tract Infection 10/15/2007 PRASAD PAVON, LACIE E 599.0 Urinary Tract Infection 10/23/2007 HENRY MCINTOSH APRN S 296.30 MAJOR DEPRESSIVE AFFECTIVE DISORDER RECURRENT EPISODE UNSPECIFIED DEGREE 10/23/2007 296.30 MAJOR DEPRESSIVE AFFECTIVE DISORDER RECURRENT EPISODE UNSPECIFIED DEGREE 10/23/2007 JUSTIN ALSTON DO K 296.30 MAJOR DEPRESSIVE AFFECTIVE DISORDER RECURRENT EPISODE [...] EPISODE UNSPECIFIED DEGREE 10/23/2007 EVANGELINA SEN APRN A 296.30 MAJOR DEPRESSIVE AFFECTIVE DISORDER RECURRENT EPISODE UNSPECIFIED DEGREE 10/23/2007 KIMI HILARIO APRN 296.30 MAJOR DEPRESSIVE AFFECTIVE DISORDER RECURRENT EPISODE UNSPECIFIED DEGREE 10/23/2007 JUSTIN ALSTON DO K 296.30 MAJOR DEPRESSIVE AFFECTIVE DISORDER RECURRENT EPISODE UNSPECIFIED DEGREE 10/23/2007 PRASAD PAVON, LACIE E 296.30 MAJOR DEPRESSIVE AFFECTIVE DISORDER RECURRENT EPISODE UNSPECIFIED DEGREE 10/23/2007 PRASAD PAVON, LACIE E 296.30 MAJOR DEPRESSIVE AFFECTIVE DISORDER RECURRENT EPISODE UNSPECIFIED DEGREE 10/23/2007 LACIE PARHAM RN E 296.30 MAJOR DEPRESSIVE AFFECTIVE DISORDER RECURRENT EPISODE UNSPECIFIED DEGREE 10/23/2007 PRASAD PAVON, LACIE E 296.30 MAJOR DEPRESSIVE AFFECTIVE DISORDER RECURRENT EPISODE UNSPECIFIED DEGREE 10/26/2007 ABRAHAN MCINTOSH APRNA S 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 10/26/2007 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 10/26/2007 JUSTIN ALSTON DO K 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 10/26/2007 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 10/26/2007 ANITA MCINTOSH APRNNDA S 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 10/26/2007 307.47 [...] DO K 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 10/26/2007 LACIE PARHAM RN E 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 10/26/2007 LACIE PARHAM RN E 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 10/26/2007 LACIE PARHAM RN E 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 10/26/2007 LACIE PARHAM RN E 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 11/27/2007 HENRY MCINTOSH APRN S 682.9 Cellulitis And Abscess Of Unspecified Sites 11/27/2007 ABRAHAN MCINTOSH APRNA S 724.5 Backache Unspecified 11/27/2007 ABRAHAN MCINTOSH APRNA S 786.2 Cough 11/27/2007 682.9 Cellulitis And Abscess Of Unspecified Sites 11/27/2007 724.5 Backache Unspecified 11/27/2007 786.2 Cough 11/27/2007 ALSTON DO, JUSTIN K 682.9 Cellulitis And Abscess Of Unspecified Sites 11/27/2007 ALSTON DO, JUSTIN K 724.5 Backache Unspecified 11/27/2007 ALSTON DO, JUSTIN K 786.2 Cough 11/27/2007 682.9 Cellulitis And Abscess Of Unspecified Sites 11/27/2007 724.5 Backache Unspecified 11/27/2007 786.2 Cough 11/27/2007 ARNALDO PARAPROFESSIONAL AIDE, HENRY S 682.9 Cellulitis And Abscess Of Unspecified Sites 11/27/2007 ARNALDO PARAPROFESSIONAL AIDE, HENRY S 724.5 Backache Unspecified 11/27/2007 ARNALDO PARAPROFESSIONAL AIDE, HENRY S 786.2 Cough 11/27/2007 682.9 Cellulitis And Abscess Of Unspecified Sites 11/27/2007 724.5 Backache Unspecified 11/27/2007 786.2 Cough 11/27/2007 ARNALDO PARAPROFESSIONAL AIDE, HENRY S 682.9 Cellulitis And Abscess Of Unspecified Sites 11/27/2007 ARNALDO PARAPROFESSIONAL AIDE, HENRY S 724.5 Backache Unspecified 11/27/2007 ARNALDO PARAPROFESSIONAL AIDE, HENRY S 786.2 Cough 11/27/2007 ARNALDO PARAPROFESSIONAL AIDE, HENRY S 682.9 Cellulitis And Abscess Of Unspecified Sites 11/27/2007 ARNALDO PARAPROFESSIONAL AIDE, HENRY S 724.5 Backache Unspecified 11/27/2007 ARNALDO PARAPROFESSIONAL AIDE, HENRY S 786.2 Cough 11/27/2007 ARNALDO PARAPROFESSIONAL AIDE, HENRY S 682.9 Cellulitis And Abscess Of Unspecified Sites 11/27/2007 ARNALDO PARAPROFESSIONAL AIDE, HENRY S 724.5 Backache Unspecified 11/27/2007 ARNALDO PARAPROFESSIONAL AIDE, HENRY S 786.2 Cough 11/27/2007 ALSTON DO, JUSTIN K 682.9 Cellulitis And Abscess Of Unspecified Sites 11/27/2007 ALSTON DO, JUSTIN K 724.5 Backache Unspecified 11/27/2007 ALSTON DO, JUSTIN K 786.2 Cough 11/27/2007 MCKINLEY PARAPROFESSIONAL AIDE EVANGELINA A 682.9 Cellulitis And Abscess Of Unspecified Sites 11/27/2007 EVANGELINA SEN APRN A 724.5 Backache Unspecified 11/27/2007 EVANGELINA SEN APRN A 786.2 Cough 11/27/2007 KIMI HILARIO APRN 682.9 Cellulitis And Abscess Of Unspecified Sites 11/27/2007 KIMI HILARIO APRN 724.5 Backache Unspecified 11/27/2007 KIMI HILARIO APRN 786.2 Cough 11/27/2007 JUSTIN ALSTON DO K 682.9 Cellulitis And Abscess Of Unspecified Sites 11/27/2007 PRASHANTH ALSTON DOA K 724.5 Backache Unspecified 11/27/2007 JUSTIN ALSTON DO K 786.2 Cough 11/27/2007 PRASAD PAVON, LACIE E 682.9 Cellulitis And Abscess Of Unspecified Sites 11/27/2007 PRASAD PAVON, LACIE E 724.5 Backache Unspecified 11/27/2007 LACIE PARHAM RN E 786.2 Cough 11/27/2007 PRASAD PAVON, LACIE E 682.9 Cellulitis And Abscess Of Unspecified Sites 11/27/2007 PRASAD PAVON, LACIE E 724.5 Backache Unspecified 11/27/2007 PRASAD PAVON, LACIE E 786.2 Cough 11/27/2007 PRASAD PAVON, LACIE E 682.9 Cellulitis And Abscess Of Unspecified Sites 11/27/2007 PRASAD RN, LACIE E 724.5 Backache Unspecified 11/27/2007 PRASAD PAVON, LACIE E 786.2 Cough 11/27/2007 PRASAD PAVON, LACIE E 682.9 Cellulitis And Abscess Of Unspecified Sites 11/27/2007 PRASAD PAVON, LACIE E 724.5 Backache Unspecified 11/27/2007 PRASAD PAVON, LACIE E 786.2 Cough 03/11/2008 ARNALDO BARRAZA, HENRY S 354.0 Carpal Tunnel Syndrome 03/11/2008 ANITA MCINTOSH APRNNDA S 465.9 Upper Respiratory Infection 03/11/2008 ARNALDO PARAPROFESSIONAL AIDE, HENRY S 493.90 Asthma Unspecified 03/11/2008 354.0 Carpal Tunnel Syndrome 03/11/2008 465.9 Upper Respiratory Infection 03/11/2008 493.90 Asthma Unspecified 03/11/2008 ALSTON DO, JUSTIN K 354.0 Carpal Tunnel Syndrome 03/11/2008 ALSTON DO, JUSTIN K 465.9 Upper Respiratory Infection 03/11/2008 ALSTON DO, JUSTIN K 493.90 Asthma Unspecified 03/11/2008 354.0 Carpal Tunnel Syndrome 03/11/2008 465.9 Upper Respiratory Infection 03/11/2008 493.90 Asthma Unspecified 03/11/2008 ARNALDO PARAPROFESSIONAL AIDE, HENRY S 354.0 Carpal Tunnel Syndrome 03/11/2008 ARNALDO PARAPROFESSIONAL AIDE, HENRY S 465.9 Upper Respiratory Infection 03/11/2008 ARNALDO PARAPROFESSIONAL AIDE, HENRY S 493.90 Asthma Unspecified 03/11/2008 354.0 Carpal Tunnel Syndrome 03/11/2008 465.9 Upper Respiratory Infection 03/11/2008 493.90 Asthma Unspecified 03/11/2008 ARNALDO PARAPROFESSIONAL AIDE, HENRY S 354.0 Carpal Tunnel Syndrome 03/11/2008 ARNALDO PARAPROFESSIONAL AIDE, HENRY S 465.9 Upper Respiratory Infection 03/11/2008 ARNALDO PARAPROFESSIONAL AIDE, HENRY S 493.90 Asthma Unspecified 03/11/2008 ARNALDO PARAPROFESSIONAL AIDE, HENRY S 354.0 Carpal Tunnel Syndrome 03/11/2008 ARNALDO PARAPROFESSIONAL AIDE, HENRY S 465.9 Upper Respiratory Infection 03/11/2008 ARNALDO PARAPROFESSIONAL AIDE, HENRY S 493.90 Asthma Unspecified 03/11/2008 ARNALDO PARAPROFESSIONAL AIDE, HENRY S 354.0 Carpal Tunnel Syndrome 03/11/2008 ARNALDO PARAPROFESSIONAL AIDE, HENRY S 465.9 Upper Respiratory Infection 03/11/2008 ARNALDO BARRAZA, HENRY S 493.90 Asthma Unspecified 03/11/2008 ALSTON DO JUSTIN K 354.0 Carpal Tunnel Syndrome 03/11/2008 ALSTON DO, JUSTIN K 465.9 Upper Respiratory Infection 03/11/2008 ALSTON DO, JUSTIN K 493.90 Asthma Unspecified 03/11/2008 MCKINLEY PARAPROFESSIONAL AIDE, EVANGELINA A 354.0 Carpal Tunnel Syndrome 03/11/2008 MCKINLEY GOINSN EVANGELINA A 465.9 Upper Respiratory Infection 03/11/2008 MCIKNLEY PARAPROFESSIONAL AIDE, EVANGELINA A 493.90 Asthma Unspecified 03/11/2008 KIMI HILARIO APRN 354.0 Carpal Tunnel Syndrome 03/11/2008 KIMI HILARIO APRN 465.9 Upper Respiratory Infection 03/11/2008 KIMI HILARIO APRN 493.90 Asthma Unspecified 03/11/2008 ALSTON DO JUSTIN K 354.0 Carpal Tunnel Syndrome 03/11/2008 ALSTON DO, JUSTIN K 465.9 Upper Respiratory Infection 03/11/2008 ALSTON DO, JUSTIN K 493.90 Asthma Unspecified 03/11/2008 PRASAD PAVON, LACIE E 354.0 Carpal Tunnel Syndrome 03/11/2008 PRASAD RN, LACIE E 465.9 Upper Respiratory Infection 03/11/2008 PRASAD RN, LACIE E 493.90 Asthma Unspecified 03/11/2008 PRASAD RN, LACIE E 354.0 Carpal Tunnel Syndrome 03/11/2008 PRASAD RN, LACIE E 465.9 Upper Respiratory Infection 03/11/2008 PRASAD RN, LACIE E 493.90 Asthma Unspecified 03/11/2008 PRASAD PAVON, LACIE E 354.0 Carpal Tunnel Syndrome 03/11/2008 PRASAD PAVON, LACIE E 465.9 Upper Respiratory Infection 03/11/2008 PRASAD RN, LACIE E 493.90 Asthma Unspecified 03/11/2008 PRASAD RN, LACIE E 354.0 Carpal Tunnel Syndrome 03/11/2008 PRASAD PAVON, LACIE E 465.9 Upper Respiratory Infection 03/11/2008 PRASAD RN, LACIE E 493.90 Asthma Unspecified 03/14/2008 ARNALDO GOINSN, HENRY S 784.0 Headache 03/14/2008 784.0 Headache 03/14/2008 GAMALIEL MURGUIA JUSTIN K 784.0 Headache 03/14/2008 784.0 Headache 03/14/2008 ARNALDO PARAPROFESSIONAL AIDE, HENRY S 784.0 Headache 03/14/2008 784.0 Headache 03/14/2008 ARNALDO PARAPROFESSIONAL AIDE, HENRY S 784.0 Headache 03/14/2008 ARNALDO PARAPROFESSIONAL AIDE, HENRY S 784.0 Headache 03/14/2008 ARNALDO PARAPROFESSIONAL AIDE, HENRY S 784.0 Headache 03/14/2008 ALSTON DO JUSTIN K 784.0 Headache 03/14/2008 EVANGELINA SEN APRN A 784.0 Headache 03/14/2008 KIMI HILARIO APRN 784.0 Headache 03/14/2008 JUSTIN ALSTON DO K 784.0 Headache 03/14/2008 PRASAD PAVON, LACIE E 784.0 Headache 03/14/2008 PRASAD PAVON, LACIE E 784.0 Headache 03/14/2008 PRASAD PAVON, LACIE E 784.0 Headache 03/14/2008 PRASAD PAVON, LACIE E 784.0 Headache 03/17/2008 HENRY MCINTOSH APRN S 079.99 Viral Syndrome 03/17/2008 079.99 Viral Syndrome 03/17/2008 JUSTIN ALSTON DO K 079.99 Viral Syndrome 03/17/2008 079.99 Viral Syndrome 03/17/2008 ABRAHAN MCINTOSH APRNA S 079.99 Viral Syndrome 03/17/2008 079.99 Viral Syndrome 03/17/2008 ABRAHAN MCINTOSH APRNA S 079.99 Viral Syndrome 03/17/2008 ABRAHAN MCINTOSH APRNA S 079.99 Viral Syndrome 03/17/2008 ANITA MCINTOSH APRNNDA S 079.99 Viral Syndrome 03/17/2008 JUSTIN ALSTON DO K 079.99 Viral Syndrome 03/17/2008 MCKINLEY BARRAZA EVANGELINA A 079.99 Viral Syndrome 03/17/2008 KIMI HILARIO APRN 079.99 Viral Syndrome 03/17/2008 JUSTIN ALSTON DO K 079.99 Viral Syndrome 03/17/2008 PRASAD PAVON, LACIE E 079.99 Viral Syndrome 03/17/2008 LACIE PARHAM RN E 079.99 Viral Syndrome 03/17/2008 PRASAD PAVON, LACIE E 079.99 Viral Syndrome 03/17/2008 PRASAD PAVON, LACIE E 079.99 Viral Syndrome 03/21/2008 HENRY MCINTOSH APRN S 786.07 Wheezing 03/21/2008 786.07 Wheezing 03/21/2008 JUSTIN ALSTON DO 786.07 Wheezing 03/21/2008 786.07 Wheezing 03/21/2008 ABRAHAN MCINTOSH APRNA S 786.07 Wheezing 03/21/2008 786.07 Wheezing 03/21/2008 HENRY MCINTOSH APRN S 786.07 Wheezing 03/21/2008 ABRAHAN MCINTOSH APRNA S 786.07 Wheezing 03/21/2008 ANITA MCINTOSH APRNNDA S 786.07 Wheezing 03/21/2008 JUSTIN ALSTON DO K 786.07 Wheezing 03/21/2008 EVANGELINA SEN APRN A 786.07 Wheezing 03/21/2008 KIMI HILARIO APRN 786.07 Wheezing 03/21/2008 JUSTIN ALSTON DO K 786.07 Wheezing 03/21/2008 PRASAD PAVON, LACIE E 786.07 Wheezing 03/21/2008 PRASAD PAVON, LACIE E 786.07 Wheezing 03/21/2008 PRASAD PAVON, LACIE E 786.07 Wheezing 03/21/2008 PRASAD PAVON, LACIE E 786.07 Wheezing 03/27/2008 ABRAHAN MCINTOSH APRNA S 461.9 Sinusitis Acute 03/27/2008 461.9 Sinusitis Acute 03/27/2008 JUSTIN ALSTON DO K 461.9 Sinusitis Acute 03/27/2008 461.9 Sinusitis Acute 03/27/2008 ANITA MCINTOSH APRNNDA S 461.9 Sinusitis Acute 03/27/2008 461.9 Sinusitis Acute 03/27/2008 ANITA MCINTOSH APRNNDA S 461.9 Sinusitis Acute 03/27/2008 ANITA MCINTOSH APRNNDA S 461.9 Sinusitis Acute 03/27/2008 ANITA MCINTOSH APRNNDA S 461.9 Sinusitis Acute 03/27/2008 JUSTIN ALSTON DO K 461.9 Sinusitis Acute 03/27/2008 EVANGELINA SEN APRN A 461.9 Sinusitis Acute 03/27/2008 KIMI HILARIO APRN 461.9 Sinusitis Acute 03/27/2008 JUSTIN ALSTON DO K 461.9 Sinusitis Acute 03/27/2008 PRASAD PAVON, LACIE E 461.9 Sinusitis Acute 03/27/2008 PRASAD PAVON, LACIE E 461.9 Sinusitis Acute 03/27/2008 PRASAD PAVON, LACIE E 461.9 Sinusitis Acute 03/27/2008 PRASAD PAVON, LACIE E 461.9 Sinusitis Acute 04/04/2008 ABRAHAN MCINTOSH APRNA S V58.69 Medication High Risk 04/04/2008 V58.69 Medication High Risk 04/04/2008 ALSTON DO, JUSTIN K V58.69 Medication High Risk 04/04/2008 V58.69 Medication High Risk 04/04/2008 ABRAHAN MCINTOSH APRNA S V58.69 Medication High Risk 04/04/2008 V58.69 Medication High Risk 04/04/2008 ABRAHAN MCINTOSH APRNA S V58.69 Medication High Risk 04/04/2008 ABRAHAN MCINTOSH APRNA S V58.69 Medication High Risk 04/04/2008 ABRAHAN MCINTOSH APRNA S V58.69 Medication High Risk 04/04/2008 JUSTIN ALSTON DO K V58.69 Medication High Risk 04/04/2008 EVANGELINA SEN APRN A V58.69 Medication High Risk 04/04/2008 KIMI HILARIO APRN V58.69 Medication High Risk 04/04/2008 JUSTIN ALSTON DO K V58.69 Medication High Risk 04/04/2008 LCAIE PARHAM RN E V58.69 Medication High Risk 04/04/2008 PRASAD PAVON, LACIE E V58.69 Medication High Risk 04/04/2008 PRASAD PAVON, LACIE E V58.69 Medication High Risk 04/04/2008 PRASAD PAVON, LACIE E V58.69 Medication High Risk 04/22/2008 HENRY MCINTOSH [...] 719.43 Pain In Joint Involving Forearm 04/26/2008 HENRY MCINTOSH APRN S 300.00 An Anxiety Unspec 04/26/2008 HENRY MCINTOSH APRN S 787.02 Nausea Alone 04/26/2008 300.00 An Anxiety Unspec 04/26/2008 787.02 Nausea Alone 04/26/2008 PRASHANTH ALSTON DOA K 300.00 An Anxiety Unspec 04/26/2008 JUSTIN ALSTON DO K 787.02 Nausea Alone 04/26/2008 300.00 An Anxiety Unspec 04/26/2008 787.02 Nausea Alone 04/26/2008 ABRAHAN MCINTOSH APRNA S 300.00 An Anxiety Unspec 04/26/2008 HENRY MCINTOSH APRN S 787.02 Nausea Alone 04/26/2008 300.00 An Anxiety Unspec 04/26/2008 787.02 Nausea Alone 04/26/2008 HENRY MCINTOSH APRN S 300.00 An Anxiety Unspec 04/26/2008 HENRY MCINTOSH APRN S 787.02 Nausea Alone 04/26/2008 HENRY MCINTOSH APRN S 300.00 An Anxiety Unspec 04/26/2008 HENRY MCINTOSH APRN S 787.02 Nausea Alone 04/26/2008 ANITA MCINTOSH APRNNDA S 300.00 An Anxiety Unspec 04/26/2008 ABRAHAN MCINTOSH APRNA S 787.02 Nausea Alone 04/26/2008 PRASHANTH ALSTON DOA K 300.00 An Anxiety Unspec 04/26/2008 PRASHANTH ALSTON DOA K 787.02 Nausea Alone 04/26/2008 MCKINLEYEVANGELINA Camarena APRN A 300.00 An Anxiety Unspec 04/26/2008 IONA SEN APRNIDI A 787.02 Nausea Alone 04/26/2008 KIMI HILARIO APRN 300.00 An Anxiety Unspec 04/26/2008 KIMI HILARIO APRN 787.02 Nausea Alone 04/26/2008 PRASHANTH ALSTON DOA K 300.00 An Anxiety Unspec 04/26/2008 PRASHANTH ALSTON DOA K 787.02 Nausea Alone 04/26/2008 PRASAD PAVON, LACIE E 300.00 An Anxiety Unspec 04/26/2008 PRASAD PAVON, LACIE E 787.02 Nausea Alone 04/26/2008 PRASAD RN, LACIE E 300.00 An Anxiety Unspec 04/26/2008 PRASAD PAVON, LACIE E 787.02 Nausea Alone 04/26/2008 PRASAD PAVON, LACIE E 300.00 An Anxiety Unspec 04/26/2008 PRASAD PAVON, LACIE E 787.02 Nausea Alone 04/26/2008 PRASAD PAVON, LACIE E 300.00 An Anxiety Unspec 04/26/2008 PRASAD PAVON, LACIE E 787.02 Nausea Alone 05/28/2008 HENRY MCINTOSH APRN S 300.02 GENERALIZED ANXIETY DISORDER 05/28/2008 300.02 GENERALIZED ANXIETY DISORDER 05/28/2008 PRASHANTH ALSTON DOA K 300.02 GENERALIZED ANXIETY DISORDER 05/28/2008 300.02 [...] GENERALIZED ANXIETY DISORDER 05/28/2008 EVANGELINA SEN APRN A 300.02 GENERALIZED ANXIETY DISORDER 05/28/2008 KIMI HILARIO APRN 300.02 GENERALIZED ANXIETY DISORDER 05/28/2008 PRASHANTH ALSTON DOA K 300.02 GENERALIZED ANXIETY DISORDER 05/28/2008 PRASAD PAVON, LACIE E 300.02 GENERALIZED ANXIETY DISORDER 05/28/2008 LACIE PARHAM RN E 300.02 GENERALIZED ANXIETY DISORDER 05/28/2008 PRASAD PAVON, LACIE E 300.02 GENERALIZED ANXIETY DISORDER 05/28/2008 PRASAD PAVON, LACIE E 300.02 GENERALIZED ANXIETY DISORDER 05/31/2008 ARNALDO PARAPROFESSIONAL AIDE, HENRY S 698.9 Pruritus Nos 05/31/2008 ARNALDO PARAPROFESSIONAL AIDE, HENRY S 782.1 Rash 05/31/2008 698.9 Pruritus Nos 05/31/2008 782.1 Rash 05/31/2008 ALSTON DO, JUSTIN K 698.9 Pruritus Nos 05/31/2008 ALSTON DO, JUSTIN K 782.1 Rash 05/31/2008 698.9 Pruritus Nos 05/31/2008 782.1 Rash 05/31/2008 ARNALDO PARAPROFESSIONAL AIDE, HENRY S 698.9 Pruritus Nos 05/31/2008 ARNALDO PARAPROFESSIONAL AIDE, HENRY S 782.1 Rash 05/31/2008 698.9 Pruritus Nos 05/31/2008 782.1 Rash 05/31/2008 ARNALDO PARAPROFESSIONAL AIDE, HENRY S 698.9 Pruritus Nos 05/31/2008 ARNALDO PARAPROFESSIONAL AIDE, HENRY S 782.1 Rash 05/31/2008 ARNALDO PARAPROFESSIONAL AIDE, HENRY S 698.9 Pruritus Nos 05/31/2008 ARNALDO PARAPROFESSIONAL AIDE, HENRY S 782.1 Rash 05/31/2008 ARNALDO PARAPROFESSIONAL AIDE, HENRY S 698.9 Pruritus Nos 05/31/2008 ARNALDO PARAPROFESSIONAL AIDE, HENRY S 782.1 Rash 05/31/2008 ALSTON DO, JUSTIN K 698.9 Pruritus Nos 05/31/2008 ALSTON DO, JUSTIN K 782.1 Rash 05/31/2008 MCKINLEY PARAPROFESSIONAL AIDE, EVANGELINA A 698.9 Pruritus Nos 05/31/2008 MCKINLEY PARAPROFESSIONAL AIDE, EVANGELINA A 782.1 Rash 05/31/2008 GARCUATE PARAPROFESSIONAL AIDEKIMI Camarena 698.9 Pruritus Nos 05/31/2008 GARKIMI CUELLO APRN 782.1 Rash 05/31/2008 ALSTON DO, JUSTIN K 698.9 Pruritus Nos 05/31/2008 ALSTON DO, JUSTIN K 782.1 Rash 05/31/2008 PRASAD PAVON, LACIE E 698.9 Pruritus Nos 05/31/2008 LACIE PARHAM RN E 782.1 Rash 05/31/2008 PRASAD PAVON, LACIE E 698.9 Pruritus Nos 05/31/2008 PRASAD RN, LACIE E 782.1 Rash 05/31/2008 PRASAD PAVON, LACIE E 698.9 Pruritus Nos 05/31/2008 PRASAD PAVON, LACIE E 782.1 Rash 05/31/2008 PRASAD PAVON, LACIE E 698.9 Pruritus Nos 05/31/2008 PRAASD PAVON, LACIE E 782.1 Rash 06/02/2008 HENRY MCINTOSH APRN S 296.90 UNSPECIFIED EPISODIC MOOD DISORDER 06/02/2008 296.90 UNSPECIFIED EPISODIC MOOD DISORDER 06/02/2008 PRASHANTH ALSTON DOA K 296.90 UNSPECIFIED EPISODIC MOOD DISORDER 06/02/2008 296.90 UNSPECIFIED EPISODIC MOOD DISORDER 06/02/2008 ABRAHAN MCINTOSH APRNA S 296.90 UNSPECIFIED EPISODIC MOOD DISORDER 06/02/2008 296.90 UNSPECIFIED EPISODIC MOOD DISORDER 06/02/2008 HENRY MCINTOSH APRN S 296.90 UNSPECIFIED EPISODIC MOOD DISORDER 06/02/2008 HENRY MCINTOSH APRN S 296.90 UNSPECIFIED EPISODIC MOOD DISORDER 06/02/2008 ABRAHAN MCINTOSH APRNA S 296.90 UNSPECIFIED EPISODIC MOOD DISORDER 06/02/2008 PRASHANTH ALSTON DOA K 296.90 UNSPECIFIED EPISODIC MOOD DISORDER 06/02/2008 EVANGELINA SEN APRN 296.90 UNSPECIFIED EPISODIC MOOD DISORDER 06/02/2008 KIMI HILARIO APRN 296.90 UNSPECIFIED EPISODIC MOOD DISORDER 06/02/2008 PRASHANTH ALSTON DOA K 296.90 UNSPECIFIED EPISODIC MOOD DISORDER 06/02/2008 LACIE PARHAM RN E 296.90 UNSPECIFIED EPISODIC MOOD DISORDER 06/02/2008 LACIE PARHAM RN E 296.90 UNSPECIFIED EPISODIC MOOD DISORDER 06/02/2008 PRASAD PAVON, LACIE E 296.90 UNSPECIFIED EPISODIC MOOD DISORDER 06/02/2008 PRASAD PAVON, LACIE E 296.90 UNSPECIFIED EPISODIC MOOD DISORDER 08/11/2008 HENRY MCINTOSH APRN S 133.0 Scabies 08/11/2008 133.0 Scabies 08/11/2008 GAMALIEL MURGUIA JUSTIN K 133.0 Scabies 08/11/2008 133.0 Scabies 08/11/2008 ARNALDO PARAPROFESSIONAL AIDE, HENRY S 133.0 Scabies 08/11/2008 133.0 Scabies 08/11/2008 ANITA MCINTOSH APRNNDA S 133.0 Scabies 08/11/2008 ARNALDO BARRAZA HENRY S 133.0 Scabies 08/11/2008 ARNALDO BARRAZA, HENRY S 133.0 Scabies 08/11/2008 ALSTON DO, JUSTIN K 133.0 Scabies 08/11/2008 EVANGELINA SEN APRN 133.0 Scabies 08/11/2008 KIMI HILARIO APRN 133.0 Scabies 08/11/2008 ALSTON DO, JUSTIN K 133.0 Scabies 08/11/2008 PRASAD RN, LACIE E 133.0 Scabies 08/11/2008 PRASAD RN, LACIE E 133.0 Scabies 08/11/2008 PRASAD RN, LACIE E 133.0 Scabies 08/11/2008 PRASAD PAVON, LACIE E 133.0 Scabies 08/18/2008 ANITA MCINTOSH APRNNDA S 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 08/18/2008 ARNALDO BARRAZA, HENRY S 493.02 Extrinsic Asthma With (acute) Exacerbation 08/18/2008 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 08/18/2008 493.02 Extrinsic Asthma With (acute) Exacerbation 08/18/2008 ALSTON DO, JUSTIN K 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 08/18/2008 ALSTON DO, JUSTIN K 493.02 Extrinsic Asthma With (acute) Exacerbation 08/18/2008 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 08/18/2008 493.02 Extrinsic Asthma With (acute) Exacerbation 08/18/2008 ARNALDO BARRAZA, HENRY S 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 08/18/2008 ARNALDO BARRAZA, HENRY S 493.02 Extrinsic Asthma With (acute) Exacerbation 08/18/2008 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 08/18/2008 493.02 Extrinsic Asthma With (acute) Exacerbation 08/18/2008 ARNALDO BARRAZA, HENRY S 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 08/18/2008 ANITA MCINTOSH APRNNDA S 493.02 Extrinsic Asthma With (acute) Exacerbation 08/18/2008 ANITA MCINTOSH APRNNDA S 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 08/18/2008 ARNALDO PARAPROFESSIONAL AIDE, HENRY S 493.02 Extrinsic Asthma With (acute) Exacerbation 08/18/2008 ARNALDO GOINSNABRAHANA S 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 08/18/2008 ARNALDO PARAPROFESSIONAL AIDEANITAHENRY S 493.02 Extrinsic Asthma With (acute) Exacerbation 08/18/2008 ALSTON DOPRASHANTHA K 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 08/18/2008 PRASHANTH ALSTON DOA K 493.02 Extrinsic Asthma With (acute) Exacerbation 08/18/2008 MCKINLEY PARAPROFESSIONAL AIDE, EVANGELINA A 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 08/18/2008 MCKINLEY PARAPROFESSIONAL AIDE, EVANGELINA A 493.02 Extrinsic Asthma With (acute) Exacerbation 08/18/2008 BABITAKIMI CUELLO APRN 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 08/18/2008 KIMI HILARIO APRN 493.02 Extrinsic Asthma With (acute) Exacerbation 08/18/2008 JUSTIN ALSTON DO K 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 08/18/2008 JUSTIN ALSTON DO K 493.02 Extrinsic Asthma With (acute) Exacerbation 08/18/2008 LACIE PARHAM RN 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 08/18/2008 LACIE PARHAM RN 493.02 Extrinsic Asthma With (acute) Exacerbation 08/18/2008 LACIE PARHAM RN 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 08/18/2008 LACIE PARHAM RN 493.02 Extrinsic Asthma With (acute) Exacerbation 08/18/2008 LACIE PARHAM RN 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 08/18/2008 LACIE PARHAM RN 493.02 Extrinsic Asthma With (acute) Exacerbation 08/18/2008 LACIE PARHAM RN 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 08/18/2008 LACIE PARHAM RN 493.02 Extrinsic Asthma With (acute) Exacerbation 09/11/2008 HENRY MCINTOSH APRN S 529.0 Glossitis 09/11/2008 529.0 Glossitis 09/11/2008 JUSTIN ALSTON DO K 529.0 Glossitis 09/11/2008 529.0 Glossitis 09/11/2008 HENRY MCINTOSH APRN S 529.0 Glossitis 09/11/2008 529.0 Glossitis 09/11/2008 ARNALDO BARRAZA, HENRY S 529.0 Glossitis 09/11/2008 ARNALDO BARRAZA, HENRY S 529.0 Glossitis 09/11/2008 ARNALDO BARRAZA, HENRY S 529.0 Glossitis 09/11/2008 ALSTON JUSTIN MURGUIA K 529.0 Glossitis 09/11/2008 EVANGELINA SEN APRN 529.0 Glossitis 09/11/2008 KIMI HILARIO APRN 529.0 Glossitis 09/11/2008 ALSTON , JUSTIN K 529.0 Glossitis 09/11/2008 PRASAD RN, LACIE E 529.0 Glossitis 09/11/2008 PRASAD RN, LACIE E 529.0 Glossitis 09/11/2008 PRASAD RN, LACIE E 529.0 Glossitis 09/11/2008 PRASAD RN, LACIE E 529.0 Glossitis 09/20/2008 ABRAHAN MCINTOSH APRNA S 825.20 Fracture [...] Bone(s) Of Foot (except Toes) Closed 09/20/2008 ARNALDO BARRAZA, HENRY S 825.20 Fracture Of Unspecified Bone(s) Of Foot (except Toes) Closed 09/20/2008 ARNALDO BARRAZA HENRY S 825.20 Fracture Of Unspecified Bone(s) Of Foot (except Toes) Closed 09/20/2008 ARNALDO BARRAZA, HENRY S 825.20 Fracture Of Unspecified Bone(s) Of Foot (except Toes) Closed 09/20/2008 JUSTIN ALSTON DO 825.20 Fracture Of Unspecified Bone(s) Of Foot (except Toes) Closed 09/20/2008 EVANGELINA SEN APRN A 825.20 Fracture Of Unspecified Bone(s) Of Foot (except Toes) Closed 09/20/2008 KIMI HILARIO APRN 825.20 Fracture Of Unspecified Bone(s) Of Foot (except Toes) Closed 09/20/2008 JUSTIN ALSTON DO 825.20 Fracture Of Unspecified Bone(s) Of Foot [...] (except Toes) Closed 09/23/2008 HENRY MCINTOSH APRN 719.47 Pain In Joint Involving Ankle [...] In Joint Involving Ankle And Foot 09/23/2008 ANITA MCINTOSH APRNNDA S 719.47 Pain In Joint Involving Ankle And Foot 09/23/2008 ABRAHAN MCINTOSH APRNA S 719.47 Pain In Joint Involving Ankle And Foot 09/23/2008 JUSTIN ALSTON DO 719.47 Pain In Joint Involving Ankle And Foot 09/23/2008 EVANGELINA SEN APRN A 719.47 Pain In Joint Involving Ankle And [...] In Joint Involving Ankle And Foot 11/10/2008 HENRY MCINTOSH APRN S 724.3 Sciatica 11/10/2008 724.3 Sciatica 11/10/2008 JUSTIN ALSTON DO K 724.3 Sciatica 11/10/2008 724.3 Sciatica 11/10/2008 ABRAHAN MCINTOSH APRNA S 724.3 Sciatica 11/10/2008 724.3 Sciatica 11/10/2008 ABRAHAN MCINTOSH APRNA S 724.3 Sciatica 11/10/2008 ANITA MCINTOSH APRNNDA S 724.3 Sciatica 11/10/2008 ANITA MCINTOSH APRNNDA S 724.3 Sciatica 11/10/2008 JUSTIN ALSTON DO 724.3 Sciatica 11/10/2008 EVANGELINA SEN APRN A 724.3 Sciatica 11/10/2008 KIMI HILARIO APRN 724.3 Sciatica 11/10/2008 JUSTIN ALSTON DO 724.3 Sciatica 11/10/2008 LACIE PARHAM RN E 724.3 Sciatica 11/10/2008 LACIE PARHAM RN E 724.3 Sciatica 11/10/2008 LACIE PARHAM RN E 724.3 Sciatica 11/10/2008 LACIE PARHAM RN E 724.3 Sciatica 12/04/2008 HENRY MCINTOSH APRN S 477.0 Allergic Rhinitis Due To Pollen 12/04/2008 477.0 Allergic Rhinitis Due To Pollen 12/04/2008 JUSTIN ALSTON DO 477.0 Allergic Rhinitis Due To Pollen 12/04/2008 477.0 Allergic Rhinitis Due To Pollen 12/04/2008 ARNALDO PARAPROFESSIONAL AIDE, HENRY S 477.0 Allergic Rhinitis Due To Pollen 12/04/2008 477.0 Allergic Rhinitis Due To Pollen 12/04/2008 ARNALDO PARAPROFESSIONAL AIDE, HENRY S 477.0 Allergic Rhinitis Due To Pollen 12/04/2008 ARNALDO PARAPROFESSIONAL AIDE, HENRY S 477.0 Allergic Rhinitis Due To Pollen 12/04/2008 ARNALDO PARAPROFESSIONAL AIDE, HENRY S 477.0 Allergic Rhinitis Due To Pollen 12/04/2008 JUSTIN ALSTON DO 477.0 Allergic Rhinitis Due To Pollen 12/04/2008 EVANGELINA SEN APRN 477.0 Allergic Rhinitis Due To Pollen 12/04/2008 KIMI HILARIO APRN 477.0 Allergic Rhinitis Due To Pollen 12/04/2008 JUSTIN ALSTON DO 477.0 Allergic Rhinitis Due To Pollen 12/04/2008 PRASAD RN, LACIE E 477.0 Allergic Rhinitis Due To Pollen 12/04/2008 PRASAD RN, LACIE E 477.0 Allergic Rhinitis Due To Pollen 12/04/2008 PRASAD RN, LACIE E 477.0 Allergic Rhinitis Due To Pollen 12/04/2008 PRASAD RN, LACIE E 477.0 Allergic Rhinitis Due To Pollen 01/03/2009 ARNALDO PARAPROFESSIONAL AIDE, HENRY S 780.79 Malaise And Fatigue 01/03/2009 780.79 Malaise And Fatigue 01/03/2009 JUSTIN ALSTON DO K 780.79 Malaise And Fatigue 01/03/2009 780.79 Malaise And Fatigue 01/03/2009 ARNALDO PARAPROFESSIONAL AIDE, HENRY S 780.79 Malaise And Fatigue 01/03/2009 780.79 Malaise And Fatigue 01/03/2009 ARNALDO PARAPROFESSIONAL AIDE, HENRY S 780.79 Malaise And Fatigue 01/03/2009 ARNALDO PARAPROFESSIONAL AIDE, HENRY S 780.79 Malaise And Fatigue 01/03/2009 ARNALDO PARAPROFESSIONAL AIDE, HENRY S 780.79 Malaise And Fatigue 01/03/2009 JUSTIN ALSTON DO 780.79 Malaise And Fatigue 01/03/2009 EVANGELINA SEN APRN A 780.79 Malaise And Fatigue 01/03/2009 KIMI HILARIO APRN 780.79 Malaise And Fatigue 01/03/2009 JUSTIN ALSTON DO 780.79 Malaise And Fatigue 01/03/2009 PRASAD PAVON, LACIE De Souza 780.79 Malaise And Fatigue 01/03/2009 PRASAD PAVON, LACIE De Souza 780.79 Malaise And Fatigue 01/03/2009 PRASAD PAVON, LACIE E 780.79 Malaise And Fatigue 01/03/2009 PRASAD PAVON, LACIE De Souza 780.79 Malaise And Fatigue 08/06/2010 ARNALDO BARRAZA, HENRY S 053.9 Herpes Zoster Without Complication 08/06/2010 053.9 Herpes Zoster Without Complication 08/06/2010 JUSTIN ALSTON DO K 053.9 Herpes Zoster Without Complication 08/06/2010 053.9 Herpes Zoster Without Complication 08/06/2010 ARNALDO GOINSN, HENRY S 053.9 Herpes Zoster Without Complication 08/06/2010 053.9 Herpes Zoster Without Complication 08/06/2010 ANITA MCINTOSH APRNNDA S 053.9 Herpes Zoster Without Complication 08/06/2010 ARNALDO GOINSN, HENRY S 053.9 Herpes Zoster Without Complication 08/06/2010 ARNALDO GOINSN, HENRY S 053.9 Herpes Zoster Without Complication 08/06/2010 JUSTIN ALSTON DO K 053.9 Herpes Zoster Without Complication 08/06/2010 EVANGELINA SEN APRN A 053.9 Herpes Zoster Without Complication 08/06/2010 KIMI HILARIO APRN 053.9 Herpes Zoster Without Complication 08/06/2010 JUSTIN ALSTON DO 053.9 Herpes Zoster Without Complication 08/06/2010 PRASAD PAVON, LACIE E 053.9 Herpes Zoster Without Complication 08/06/2010 LACIE PARHAM RN E 053.9 Herpes Zoster Without Complication 08/06/2010 LACIE PARHAM RN 053.9 Herpes Zoster Without Complication 08/06/2010 LACIE PARHAM RN E 053.9 Herpes Zoster Without Complication 01/21/2011 ARNALDO BARRAZA, HENRY S 461.9 Sinusitis Acute 01/21/2011 ARNALDO BARRAZA, HENRY S 698.9 Unspecified Pruritic Disorder 01/21/2011 461.9 Sinusitis Acute 01/21/2011 698.9 Unspecified Pruritic Disorder 01/21/2011 ALSTON DO, JUSTIN K 461.9 Sinusitis Acute 01/21/2011 ALSTON DO, JUSTIN K 698.9 Unspecified Pruritic Disorder 01/21/2011 461.9 Sinusitis Acute 01/21/2011 698.9 Unspecified Pruritic Disorder 01/21/2011 ARNALDO PARAPROFESSIONAL AIDE, HENRY S 461.9 Sinusitis Acute 01/21/2011 ARNALDO PARAPROFESSIONAL AIDE, HENRY S 698.9 Unspecified Pruritic Disorder 01/21/2011 461.9 Sinusitis Acute 01/21/2011 698.9 Unspecified Pruritic Disorder 01/21/2011 ARNALDO PARAPROFESSIONAL AIDE, HENRY S 461.9 Sinusitis Acute 01/21/2011 ARNALDO PARAPROFESSIONAL AIDE, HENRY S 698.9 Unspecified Pruritic Disorder 01/21/2011 ARNALDO PARAPROFESSIONAL AIDE, HENRY S 461.9 Sinusitis Acute 01/21/2011 ARNALDO PARAPROFESSIONAL AIDE, HENRY S 698.9 Unspecified Pruritic Disorder 01/21/2011 ARNALDO PARAPROFESSIONAL AIDE, HENRY S 461.9 Sinusitis Acute 01/21/2011 ARNALDO PARAPROFESSIONAL AIDE, HENRY S 698.9 Unspecified Pruritic Disorder 01/21/2011 ALSTON DO, JUSTIN K 461.9 Sinusitis Acute 01/21/2011 ALSTON DO, JUSTIN K 698.9 Unspecified Pruritic Disorder 01/21/2011 MCKINLEY PARAPROFESSIONAL AIDE, EVANGELINA A 461.9 Sinusitis Acute 01/21/2011 MCKINLEY PARAPROFESSIONAL AIDE, EVANGELINA A 698.9 Unspecified Pruritic Disorder 01/21/2011 GARTON PARAPROFESSIONAL AIDELUIS CamarenaKIMI D 461.9 Sinusitis Acute 01/21/2011 GARTON PARAPROFESSIONAL AIDELUISKIMI D 698.9 Unspecified Pruritic Disorder 01/21/2011 ALSTON DO JUSTIN K 461.9 Sinusitis Acute 01/21/2011 ALSTON DO, JUSTIN K 698.9 Unspecified Pruritic Disorder 01/21/2011 LACIE PARHAM RN E 461.9 Sinusitis Acute 01/21/2011 LACIE PARHAM RN E 698.9 Unspecified Pruritic Disorder 01/21/2011 LACIE PARHAM RN E 461.9 Sinusitis Acute 01/21/2011 PRASAD PAVON, LACIE E 698.9 Unspecified Pruritic Disorder 01/21/2011 PRASAD PAVON, LACIE E 461.9 Sinusitis Acute 01/21/2011 PRASAD PAVON, LACIE E 698.9 Unspecified Pruritic Disorder 01/21/2011 PRASAD RN, LACIE E 461.9 Sinusitis Acute 01/21/2011 PRASAD PAVON, LACIE E 698.9 Unspecified Pruritic Disorder 02/08/2011 HENRY MCINTOSH APRN S 815.00 Closed Fracture Of Metacarpal Bone(s) Site Unspecified 02/08/2011 815.00 Closed Fracture Of Metacarpal Bone(s) Site Unspecified 02/08/2011 JUSTIN ALSTON DO K 815.00 Closed Fracture Of Metacarpal Bone(s) Site Unspecified 02/08/2011 815.00 Closed Fracture Of Metacarpal Bone(s) Site Unspecified 02/08/2011 HENRY MCINTOSH APRN S 815.00 Closed Fracture Of Metacarpal Bone(s) Site Unspecified 02/08/2011 815.00 Closed Fracture Of Metacarpal Bone(s) Site Unspecified 02/08/2011 ABRAHAN MCINTOSH APRNA S 815.00 Closed Fracture Of Metacarpal Bone(s) Site Unspecified 02/08/2011 ABRAHAN MCINTOSH APRNA S 815.00 Closed Fracture Of Metacarpal Bone(s) Site Unspecified 02/08/2011 HENRY MCINTOSH APRN S 815.00 Closed Fracture Of Metacarpal Bone(s) Site Unspecified 02/08/2011 PRASHANTH ALSTON DOA K 815.00 Closed Fracture Of Metacarpal Bone(s) Site Unspecified 02/08/2011 EVANGELINA SEN APRN A 815.00 Closed Fracture Of Metacarpal Bone(s) Site Unspecified 02/08/2011 KIMI HILARIO APRN 815.00 Closed Fracture Of Metacarpal Bone(s) Site Unspecified 02/08/2011 JUSTIN ALSTON DO K 815.00 Closed Fracture Of Metacarpal Bone(s) Site Unspecified 02/08/2011 PRASAD PAVON, LACIE E 815.00 Closed Fracture Of Metacarpal Bone(s) Site Unspecified 02/08/2011 PRASAD PAVON, LACIE E 815.00 Closed Fracture Of Metacarpal Bone(s) Site Unspecified 02/08/2011 PRASAD PAVON, LACIE E 815.00 Closed Fracture Of Metacarpal Bone(s) Site Unspecified 02/08/2011 PRASAD PAVON, LACIE E 815.00 Closed Fracture Of Metacarpal Bone(s) Site Unspecified 03/11/2011 ARNALDO PARAPROFESSIONAL AIDE, HENRY S 300.00 AN ANXIETY UNSPEC 03/11/2011 ARNALDO PARAPROFESSIONAL AIDE, HENRY S 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 03/11/2011 300.00 AN ANXIETY UNSPEC 03/11/2011 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 03/11/2011 JUSTIN ALSTON DO K 300.00 AN ANXIETY UNSPEC 03/11/2011 JUSTIN ALSTON DO K 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 03/11/2011 300.00 AN ANXIETY UNSPEC 03/11/2011 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 03/11/2011 ARNALDO GOINSN, HENRY S 300.00 AN ANXIETY UNSPEC 03/11/2011 ARNALDO PARAPROFESSIONAL AIDE, HENRY S 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 03/11/2011 300.00 AN ANXIETY UNSPEC 03/11/2011 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 03/11/2011 ARNALDO PARAPROFESSIONAL AIDE, HENRY S 300.00 AN ANXIETY UNSPEC 03/11/2011 ARNALDO PARAPROFESSIONAL AIDE, HENRY S 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 03/11/2011 ARNALDO PARAPROFESSIONAL AIDE, HENRY S 300.00 AN ANXIETY UNSPEC 03/11/2011 ARNALDO PARAPROFESSIONAL AIDE, HENRY S 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 03/11/2011 ARNALDO PARAPROFESSIONAL AIDE, HENRY S 300.00 AN ANXIETY UNSPEC 03/11/2011 ARNALDO GOINSN, HENRY S 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 03/11/2011 PRASHANTH ALSTON DOA K 300.00 AN ANXIETY UNSPEC 03/11/2011 PRASHANTH ALSTON DOA K 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 03/11/2011 MCKINLEY PARAPROFESSIONAL AIDE, EVANGELINA A 300.00 AN ANXIETY UNSPEC 03/11/2011 MCKINLEY PARAPROFESSIONAL AIDE, EVANGELINA A 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 03/11/2011 KIMI HILARIO APRN 300.00 AN ANXIETY UNSPEC 03/11/2011 KIMI HILARIO APRN 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 03/11/2011 JUSTIN ALSTON DO 300.00 AN ANXIETY UNSPEC 03/11/2011 JUSTIN ALSTON DO 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 03/11/2011 PRASAD PAVON, LACIE E 300.00 AN ANXIETY UNSPEC 03/11/2011 PRASAD PAVON, LACIE E 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 03/11/2011 PRASAD RN, LACIE E 300.00 AN ANXIETY UNSPEC [...] S 724.2 LUMBAGO 09/22/2011 724.2 LUMBAGO 09/22/2011 ALSTON PRASHANTH MURGUIAA K 724.2 LUMBAGO 09/22/2011 724.2 LUMBAGO 09/22/2011 HENRY MCINTOSH APRN S 724.2 LUMBAGO 09/22/2011 724.2 LUMBAGO 09/22/2011 HENRY MCINTOSH APRN S 724.2 LUMBAGO 09/22/2011 HENRY MCINTOSH APRN S 724.2 LUMBAGO 09/22/2011 HENRY MCINTOSH APRN S 724.2 LUMBAGO 09/22/2011 JUSTIN ALSTON DO K 724.2 LUMBAGO 09/22/2011 EVANGELINA SEN APRN 724.2 LUMBAGO 09/22/2011 KIMI HILARIO APRN 724.2 LUMBAGO 09/22/2011 ALSTON JUSTIN MURGUIA K 724.2 LUMBAGO 09/22/2011 PRASAD PAVON, LACIE E 724.2 LUMBAGO 09/22/2011 PRASAD PAVON, LACIE E 724.2 LUMBAGO 09/22/2011 PRASAD PAVON, LACIE E 724.2 LUMBAGO 09/22/2011 PRASAD PAVON, LACIE E 724.2 LUMBAGO 02/16/2012 HENRY MCINTOSH APRN 298.9 P PSYCHOSIS NOS 02/16/2012 HENRY MCINTOSH APRN 307.47 SI DYSSOMNIA NOS 02/16/2012 HENRY MCINTOSH APRN 311 DEPRESSIVE DISORDER NOS 02/16/2012 HENRY MCINTOSH APRN 627.8 PERIMENOPAUSE 02/16/2012 ARNALDO PARAPROFESSIONAL AIDE, HENRY S V58.69 MEDICATION HIGH RISK 02/16/2012 298.9 P PSYCHOSIS NOS 02/16/2012 307.47 SI DYSSOMNIA NOS 02/16/2012 311 DEPRESSIVE DISORDER NOS 02/16/2012 627.8 PERIMENOPAUSE 02/16/2012 V58.69 MEDICATION HIGH RISK 02/16/2012 ALSTON DO, JUSTIN K 298.9 P PSYCHOSIS NOS 02/16/2012 ALSTON DO, JUSTIN K 307.47 SI DYSSOMNIA NOS 02/16/2012 ALSTON DO, JUSTIN K 311 DEPRESSIVE DISORDER NOS 02/16/2012 ALSTON DO, JUSTIN K 627.8 PERIMENOPAUSE 02/16/2012 ALSTON DO, JUSTIN K V58.69 MEDICATION HIGH RISK 02/16/2012 298.9 P PSYCHOSIS NOS 02/16/2012 307.47 SI DYSSOMNIA NOS 02/16/2012 311 DEPRESSIVE DISORDER NOS 02/16/2012 627.8 PERIMENOPAUSE 02/16/2012 V58.69 MEDICATION HIGH RISK 02/16/2012 ARNALDO GOINSN, HENRY S 298.9 P PSYCHOSIS NOS 02/16/2012 ARNALDO PARAPROFESSIONAL AIDE, HENRY S 307.47 SI DYSSOMNIA NOS 02/16/2012 ARNALDO PARAPROFESSIONAL AIDE, HENRY S 311 DEPRESSIVE DISORDER NOS 02/16/2012 ARNALDO PARAPROFESSIONAL AIDE, HENRY S 627.8 PERIMENOPAUSE 02/16/2012 ARNALDO PARAPROFESSIONAL AIDE, HENRY S V58.69 MEDICATION HIGH RISK 02/16/2012 298.9 P PSYCHOSIS NOS 02/16/2012 307.47 SI DYSSOMNIA NOS 02/16/2012 311 DEPRESSIVE DISORDER NOS 02/16/2012 627.8 PERIMENOPAUSE 02/16/2012 V58.69 MEDICATION HIGH RISK 02/16/2012 ARNALDO PARAPROFESSIONAL AIDE, HENRY S 298.9 P PSYCHOSIS NOS 02/16/2012 ARNALDO PARAPROFESSIONAL AIDE, HENRY S 307.47 SI DYSSOMNIA NOS 02/16/2012 ARNALDO PARAPROFESSIONAL AIDE, HENRY S 311 DEPRESSIVE DISORDER NOS 02/16/2012 ARNALDO PARAPROFESSIONAL AIDE, HENRY S 627.8 PERIMENOPAUSE 02/16/2012 ARNALDO PARAPROFESSIONAL AIDE, HENRY S V58.69 MEDICATION HIGH RISK 02/16/2012 ARNALDO PARAPROFESSIONAL AIDE, HENRY S 298.9 P PSYCHOSIS NOS 02/16/2012 ARNALDO PARAPROFESSIONAL AIDE, HENRY S 307.47 SI DYSSOMNIA NOS 02/16/2012 ARNALDO PARAPROFESSIONAL AIDE, HENRY S 311 DEPRESSIVE DISORDER NOS 02/16/2012 ARNALDO PARAPROFESSIONAL AIDE, HENRY S 627.8 PERIMENOPAUSE 02/16/2012 ARNALDO PARAPROFESSIONAL AIDE, HENRY S V58.69 MEDICATION HIGH RISK 02/16/2012 ARNALDO PARAPROFESSIONAL AIDE, HENRY S 298.9 P PSYCHOSIS NOS 02/16/2012 ARNALDO PARAPROFESSIONAL AIDE, HENRY S 307.47 SI DYSSOMNIA NOS 02/16/2012 ARNALDO PARAPROFESSIONAL AIDE, HENRY S 311 DEPRESSIVE DISORDER NOS 02/16/2012 ARNALDO PARAPROFESSIONAL AIDE, HENRY S 627.8 PERIMENOPAUSE 02/16/2012 ARNALDO PARAPROFESSIONAL AIDE, HENRY S V58.69 MEDICATION HIGH RISK 02/16/2012 ALSTON DO, JUSTIN K 298.9 P PSYCHOSIS NOS 02/16/2012 ALSTON DO, JUSTIN K 307.47 SI DYSSOMNIA NOS 02/16/2012 ALSTON DO, JUSTIN K 311 DEPRESSIVE DISORDER NOS 02/16/2012 ALSTON DO, JUSTIN K 627.8 PERIMENOPAUSE 02/16/2012 ALSTON DO, JUSTIN K V58.69 MEDICATION HIGH RISK 02/16/2012 MCKINLEY PARAPROFESSIONAL AIDE, EVANGELINA A 298.9 P PSYCHOSIS NOS 02/16/2012 MCKINLEY PARAPROFESSIONAL AIDE, EVANGELINA A 307.47 SI DYSSOMNIA NOS 02/16/2012 MCKINLEY PARAPROFESSIONAL AIDE, EVANGELINA A 311 DEPRESSIVE DISORDER NOS 02/16/2012 MCKINLEY PARAPROFESSIONAL AIDE, EVANGELINA A 627.8 PERIMENOPAUSE 02/16/2012 MCKINLEY PARAPROFESSIONAL AIDE, EVANGELINA A V58.69 MEDICATION HIGH RISK 02/16/2012 KIMI HILARIO APRN D 298.9 P PSYCHOSIS NOS 02/16/2012 KIMI HILARIO APRN D 307.47 SI DYSSOMNIA NOS 02/16/2012 RADHA HILARIO APRNBETH D 311 DEPRESSIVE DISORDER NOS 02/16/2012 YANELIS PARAPROFESSIONAL AIDEKIMI Camarena D 627.8 PERIMENOPAUSE 02/16/2012 KIMI HILARIO APRN D V58.69 MEDICATION HIGH RISK 02/16/2012 JUSTIN ALSTON DO K 298.9 P PSYCHOSIS NOS 02/16/2012 GAMALIEL MURGUIAPRASHANTHA K 307.47 SI DYSSOMNIA NOS 02/16/2012 GAMALIEL MURGUIA JUSTIN K 311 DEPRESSIVE DISORDER NOS 02/16/2012 GAMALIEL MURGUIAPRASHANTHA K 627.8 PERIMENOPAUSE 02/16/2012 GAMALIEL MURGUIAPRASHANTHA K V58.69 MEDICATION HIGH RISK 02/16/2012 PRASAD PAVON, LACIE E 298.9 P PSYCHOSIS NOS 02/16/2012 PRASAD PAVON, LACIE E 307.47 SI DYSSOMNIA NOS 02/16/2012 PRASAD PAVON, LACIE E 311 DEPRESSIVE DISORDER NOS 02/16/2012 PRASAD PAVON, LACIE E 627.8 PERIMENOPAUSE 02/16/2012 LACIE PARHAM RN E V58.69 MEDICATION HIGH RISK 02/16/2012 PRASAD PAVON, LACIE E 298.9 P PSYCHOSIS NOS 02/16/2012 LACIE PARHAM RN E 307.47 SI DYSSOMNIA NOS 02/16/2012 LACIE PARHAM RN E 311 DEPRESSIVE DISORDER NOS 02/16/2012 LACIE PARHAM RN E 627.8 PERIMENOPAUSE 02/16/2012 PRASAD PAVON, LACIE E V58.69 MEDICATION HIGH RISK 02/16/2012 PRASAD PAVON, LACIE E 298.9 P PSYCHOSIS NOS 02/16/2012 PRASAD PAVON, LACIE E 307.47 SI DYSSOMNIA NOS 02/16/2012 PRASAD PAVON, LACIE E 311 DEPRESSIVE DISORDER NOS 02/16/2012 LACIE PARHAM RN E 627.8 PERIMENOPAUSE 02/16/2012 LACIE PARHAM RN E V58.69 MEDICATION HIGH RISK 02/16/2012 LACIE PARHAM RN E 298.9 P PSYCHOSIS NOS 02/16/2012 PRASAD PAVON, LACIE E 307.47 SI DYSSOMNIA NOS 02/16/2012 PRASAD PAVON, LACIE E 311 DEPRESSIVE DISORDER NOS 02/16/2012 LACIE PARHAM RN E 627.8 PERIMENOPAUSE 02/16/2012 LACIE PARHAM RN E V58.69 MEDICATION HIGH RISK 03/03/2012 HENRY MCINTOSH APRN 786.2 COUGH 03/03/2012 786.2 COUGH 03/03/2012 JUSTIN ALSTON DO 786.2 COUGH 03/03/2012 786.2 COUGH 03/03/2012 ARNALDO PARAPROFESSIONAL AIDE, HENRY S 786.2 COUGH 03/03/2012 786.2 COUGH 03/03/2012 ARNALDO PARAPROFESSIONAL AIDE, HENRY S 786.2 COUGH 03/03/2012 ARNALDO PARAPROFESSIONAL AIDE, HENRY S 786.2 COUGH 03/03/2012 ARNALDO PARAPROFESSIONAL AIDE, HENRY S 786.2 COUGH 03/03/2012 ALSTON DO, JUSTIN K 786.2 COUGH 03/03/2012 MCKINLEY PARAPROFESSIONAL AIDE, EVANGELINA A 786.2 COUGH 03/03/2012 KIMI HILARIO APRN 786.2 COUGH 03/03/2012 ALSTON DO, JUSTIN K 786.2 COUGH 03/03/2012 PRASAD RN, LACIE E 786.2 COUGH 03/03/2012 PRASAD PAVON, LACIE De Souza 786.2 COUGH 03/03/2012 PRASAD PAVON, LACIE E 786.2 COUGH 03/03/2012 PRASAD PAVON, LACIE E 786.2 COUGH 04/19/2012 ALSTON DO, JUSTIN K 466.0 BRONCHITIS, ACUTE 04/19/2012 ALSTON DO, JUSTIN K 786.07 WHEEZING 04/19/2012 466.0 BRONCHITIS, ACUTE 04/19/2012 786.07 WHEEZING 04/19/2012 ARNALDO PARAPROFESSIONAL AIDE, HENRY S 466.0 BRONCHITIS, ACUTE 04/19/2012 ARNALDO PARAPROFESSIONAL AIDE, HENRY S 786.07 WHEEZING 04/19/2012 466.0 BRONCHITIS, ACUTE 04/19/2012 786.07 WHEEZING 04/19/2012 ARNALDO PARAPROFESSIONAL AIDE, HENRY S 466.0 BRONCHITIS, ACUTE 04/19/2012 ARNALDO PARAPROFESSIONAL AIDE, HENRY S 786.07 WHEEZING 04/19/2012 ARNALDO PARAPROFESSIONAL AIDE, HENRY S 466.0 BRONCHITIS, ACUTE 04/19/2012 ARNALDO PARAPROFESSIONAL AIDE, HENRY S 786.07 WHEEZING 04/19/2012 ARNALDO PARAPROFESSIONAL AIDE, HENRY S 466.0 BRONCHITIS, ACUTE 04/19/2012 ARNALDO PARAPROFESSIONAL AIDE, HENRY S 786.07 WHEEZING 04/19/2012 ALSTON DO, JUSTIN K 466.0 BRONCHITIS, ACUTE 04/19/2012 ALSTON DO, JUSTIN K 786.07 WHEEZING 04/19/2012 MCKINLEY PARAPROFESSIONAL AIDE, EVANGELINA A 466.0 BRONCHITIS, ACUTE 04/19/2012 MCKINLEY PARAPROFESSIONAL AIDE, EVANGELINA A 786.07 WHEEZING 04/19/2012 KIMI HILARIO APRN 466.0 BRONCHITIS, ACUTE 04/19/2012 KIMI HILARIO APRN 786.07 WHEEZING 04/19/2012 JUSTIN ALSTON DO K 466.0 BRONCHITIS, ACUTE 04/19/2012 ALSTON JUSTIN MURGUIA K 786.07 WHEEZING 04/19/2012 PRASAD PAVON, LACIE E 466.0 BRONCHITIS, ACUTE 04/19/2012 PRASAD PAVON, LACIE E 786.07 WHEEZING 04/19/2012 PRASAD PAVON, LACIE E 466.0 BRONCHITIS, ACUTE 04/19/2012 PRASAD PAVON, LACIE E 786.07 WHEEZING 04/19/2012 PRASAD PAVON, LACIE E 466.0 BRONCHITIS, ACUTE 04/19/2012 PRASAD PAVON, LACIE E 786.07 WHEEZING 04/19/2012 PRASAD PAVON, LACIE E 466.0 BRONCHITIS, ACUTE 04/19/2012 PRAASD PAVON, LACIE E 786.07 WHEEZING 07/09/2012 ABRAHAN MCINTOSH APRNA S 723.1 CERVICALGIA 07/09/2012 723.1 CERVICALGIA 07/09/2012 ABRAHAN MCINTOSH APRNA S 723.1 CERVICALGIA 07/09/2012 ANITA MCINTOSH APRNNDA S 723.1 CERVICALGIA 07/09/2012 ANITA MCINTOSH APRNNDA S 723.1 CERVICALGIA 07/09/2012 JUSTIN ALSTON DO K 723.1 CERVICALGIA 07/09/2012 EVANGELINA SEN APRN A 723.1 CERVICALGIA 07/09/2012 KIMI HILARIO APRN 723.1 CERVICALGIA 07/09/2012 JUSTIN ALSTON DO 723.1 CERVICALGIA 07/09/2012 PRASAD PAVON, LACIE E 723.1 CERVICALGIA 07/09/2012 PRASAD PAVON, LACIE E 723.1 CERVICALGIA 07/09/2012 PRASAD PAVON, LACIE E 723.1 CERVICALGIA 07/09/2012 PRASAD PAVON, LACIE E 723.1 CERVICALGIA 08/07/2012 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 08/07/2012 300.21 AN PANIC DIS W AGORA 08/07/2012 ABRAHAN MCINTOSH APRNA S 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 08/07/2012 ARNALDO PARAPROFESSIONAL AIDE, HENRY S 300.21 AN PANIC DIS W AGORA 08/07/2012 ARNALDO GOINSN, HENRY S 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 08/07/2012 ARNALDO GOINSN, HENRY S 300.21 AN PANIC DIS W AGORA 08/07/2012 ARNALDO GOINSN, HENRY S 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 08/07/2012 ARNALDO BARRAZA, HENRY S 300.21 AN PANIC DIS W AGORA 08/07/2012 PRASHANTH ALSTON DOA K 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 08/07/2012 GAMALIEL MURGUIA JUSTIN K 300.21 AN PANIC DIS W AGORA 08/07/2012 MCKINLEY BARRAZA, EVANGELINA A 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 08/07/2012 MCKINLEYYANG GOINSN, EVANGELINA A 300.21 AN PANIC DIS W [...] 300.21 AN PANIC DIS W AGORA 12/17/2012 ARNALDO BARRAZA, HENRY S 244.9 HYPOTHYROIDISM 12/17/2012 ANITA MCINTOSH APRNNDA S 244.9 HYPOTHYROIDISM 12/17/2012 ANITA MCINTOSH APRNNDA S 244.9 HYPOTHYROIDISM 12/17/2012 JUSTIN ALSTON DO 244.9 HYPOTHYROIDISM 12/17/2012 EVANGELINA SEN APRN A 244.9 HYPOTHYROIDISM 12/17/2012 KIMI HILARIO APRN 244.9 HYPOTHYROIDISM 12/17/2012 JUSTIN ALSTON DO K 244.9 HYPOTHYROIDISM 12/17/2012 PRASAD PAVON, LACIE E 244.9 HYPOTHYROIDISM 12/17/2012 PRASAD PAVON, LACIE E 244.9 HYPOTHYROIDISM 12/17/2012 LACIE PARHAM RN 244.9 HYPOTHYROIDISM 12/17/2012 LACIE PARHAM RN 244.9 HYPOTHYROIDISM 03/04/2013 HENRY MCINTOSH APRN 719.46 PAIN IN JOINT INVOLVING LOWER LEG 03/04/2013 HENRY MCINTOSH APRN V04.81 FLU SHOT 03/04/2013 UJSTIN ALSTON DO 719.46 PAIN IN JOINT INVOLVING LOWER LEG 03/04/2013 JUSTIN ALSTON DO V04.81 FLU SHOT 03/04/2013 EVANGELINA SEN APRN A 719.46 PAIN IN JOINT INVOLVING LOWER LEG 03/04/2013 EVANGELINA SEN APRN A V04.81 FLU SHOT 03/04/2013 KIMI HILARIO APRN 719.46 PAIN IN JOINT INVOLVING LOWER LEG 03/04/2013 KIMI HILARIO APRN V04.81 FLU SHOT 03/04/2013 JUSTIN ALSTON DO 719.46 PAIN IN JOINT INVOLVING LOWER LEG 03/04/2013 JUSTIN ALSTON DO V04.81 FLU SHOT 03/04/2013 LACIE PARHAM RN 719.46 PAIN IN JOINT INVOLVING LOWER LEG 03/04/2013 LACIE PARHAM RN V04.81 FLU SHOT 03/04/2013 LACIE PARHAM RN 719.46 PAIN IN JOINT INVOLVING LOWER LEG 03/04/2013 LACIE PARHAM RN V04.81 FLU SHOT 03/04/2013 LACIE PARHAM RN 719.46 PAIN IN JOINT INVOLVING LOWER LEG 03/04/2013 LACIE PARHAM RN V04.81 FLU SHOT 03/04/2013 LACIE PARHAM RN 719.46 PAIN IN JOINT INVOLVING LOWER LEG 03/04/2013 LACIE PARHAM RN V04.81 FLU SHOT 04/08/2013 JUSTIN ALSTON DO 338.29 OTHER CHRONIC PAIN 04/08/2013 GAMALIEL MURGUIAPRASHANTHA K 461.9 SINUSITIS ACUTE 04/08/2013 GAMALIEL MURGUIA JUSTIN K 496 COPD 04/08/2013 MCKINLEY GOINSN, EVANGELINA A 338.29 OTHER CHRONIC PAIN 04/08/2013 MCKINLEY GOINSN, EVANGELINA A 461.9 SINUSITIS ACUTE 04/08/2013 MCKINLEY GOINSN, EVANGELINA A 496 COPD 04/08/2013 KIMI HILARIO APRN 338.29 OTHER CHRONIC PAIN 04/08/2013 KIMI HILARIO APRN 461.9 SINUSITIS ACUTE 04/08/2013 KIMI HILARIO APRN 496 COPD 04/08/2013 GAMALIEL MURGUIAPRASHANTHA K 338.29 OTHER CHRONIC PAIN 04/08/2013 GAMALIEL MURGUIA JUSTIN K 461.9 SINUSITIS ACUTE 04/08/2013 GAMALIEL MURGUIA JUSTIN K 496 COPD 04/08/2013 PRASAD PAVON, LACIE E 338.29 OTHER CHRONIC PAIN 04/08/2013 PRASAD PAVON, LACIE E 461.9 SINUSITIS ACUTE 04/08/2013 PRASAD PAVON, LACIE E 496 COPD 04/08/2013 PRASAD PAVON, LACIE E 338.29 OTHER CHRONIC PAIN 04/08/2013 PRASAD PAVON, LACIE E 461.9 SINUSITIS ACUTE 04/08/2013 PRASAD PAVON, LACIE E 496 COPD 04/08/2013 PRASAD RN, LACIE E 338.29 OTHER CHRONIC PAIN 04/08/2013 RPASAD PAVON, LACIE E 461.9 SINUSITIS ACUTE 04/08/2013 PRASAD PAVON, LACIE E 496 COPD 04/08/2013 PRASAD PAVON, LACIE E 338.29 OTHER CHRONIC PAIN 04/08/2013 PRASAD PAVON, LACIE E 461.9 SINUSITIS ACUTE 04/08/2013 PRASAD PAVON, LACIE E 496 COPD 05/07/2013 MCKINLEYYANG BARRAZA, EVANGELINA A 305.70 AMPHETA ABUSE 05/07/2013 KIMI HILARIO APRN 305.70 AMPHETA ABUSE 05/07/2013 JUSTIN ALSTON DO K 305.70 AMPHETA ABUSE 05/07/2013 PRASAD PAVON, LACIE E 305.70 AMPHETA ABUSE 05/07/2013 LACIE PARHAM RN E 305.70 AMPHETA ABUSE 05/07/2013 PRASAD PAVON, LACIE E 305.70 AMPHETA ABUSE 05/07/2013 PRASAD PAVON, LACIE De Souza 305.70 AMPHETA ABUSE 05/13/2013 IONA SEN APRNIDI A 278.00 OBESITY 05/13/2013 MCKINLEY GOINSEVANGELINA Camarena A 465.9 ACUTE UPPER RESPIRATORY INFECTIONS OF UNSPECIFIED SITE 05/13/2013 MCKINLEY GOINSEVANGELINA Camarena A V16.3 FAM HX CANCER, BREAST 05/13/2013 MCKINLEY BARRAZA EVANGELINA A V65.42 COUNSELING - SMOKING CESSATION 05/13/2013 MCKINLEY GOINSMigue EVANGELINA A V76.10 BREAST CANCER SCREENING 05/13/2013 KIMI HILARIO APRN 278.00 OBESITY 05/13/2013 KIMI HILARIO APRN 465.9 ACUTE UPPER RESPIRATORY INFECTIONS OF UNSPECIFIED SITE 05/13/2013 KIMI HILARIO APRN V16.3 FAM HX CANCER, BREAST 05/13/2013 KIMI HILARIO APRN V65.42 COUNSELING - SMOKING CESSATION 05/13/2013 KIMI HILARIO APRN V76.10 BREAST CANCER SCREENING 05/13/2013 JUSTIN ALSTON DO K 278.00 OBESITY 05/13/2013 JUSTIN ALSTON DO K 465.9 ACUTE UPPER RESPIRATORY INFECTIONS OF UNSPECIFIED SITE 05/13/2013 JUSTIN ALSTON DO K V16.3 FAM HX CANCER, BREAST 05/13/2013 JUSTIN ALSTON DO K V65.42 COUNSELING - SMOKING CESSATION 05/13/2013 JUSTIN ALSTON DO V76.10 BREAST CANCER SCREENING 05/13/2013 LACIE PARHAM [...] RN V65.42 COUNSELING - SMOKING CESSATION 05/13/2013 PRASAD PAVON, LACIE E V76.10 BREAST CANCER SCREENING 05/13/2013 PRASAD PAVON, LACIE E 278.00 OBESITY 05/13/2013 PRASAD PAVON, LACIE E 465.9 ACUTE UPPER RESPIRATORY INFECTIONS OF UNSPECIFIED SITE 05/13/2013 LACIE PARHAM RN E V16.3 FAM HX CANCER, BREAST 05/13/2013 PRASAD PAVON, LACIE E V65.42 COUNSELING - SMOKING CESSATION 05/13/2013 LACIE PARHAM RN E V76.10 BREAST CANCER SCREENING 05/13/2013 PRASAD RN, LACIE E 278.00 OBESITY 05/13/2013 PRASAD PAVON, LACIE E 465.9 ACUTE UPPER RESPIRATORY INFECTIONS OF UNSPECIFIED SITE 05/13/2013 LACIE PARHAM RN E V16.3 FAM HX CANCER, BREAST 05/13/2013 PRASAD PAVON, LACIE E V65.42 COUNSELING - SMOKING CESSATION 05/13/2013 LACIE PARHAM RN E V76.10 BREAST CANCER SCREENING 12/24/2013 JUSTIN ALSTON DO 296.80 BIPOLAR DISORDER UNSPECIFIED 12/24/2013 PRASAD RN, LACIE E 296.80 BIPOLAR DISORDER UNSPECIFIED 12/24/2013 PRASAD PAVON, LACIE E 296.80 BIPOLAR DISORDER UNSPECIFIED 12/24/2013 PRASAD PAVON, LACIE E 296.80 BIPOLAR DISORDER UNSPECIFIED 12/24/2013 PRASAD PAVON, LACIE E 296.80 BIPOLAR DISORDER UNSPECIFIED 12/27/2013 JUSTIN ALSTON DO 466.0 BRONCHITIS, ACUTE 12/27/2013 PRASAD PAVON, LACIE E 466.0 BRONCHITIS, ACUTE 12/27/2013 PRASAD PAVON, LACIE E 466.0 BRONCHITIS, ACUTE 12/27/2013 PRASAD RN, LACIE E 466.0 BRONCHITIS, ACUTE 12/27/2013 PRASAD RN, LACIE E 466.0 BRONCHITIS, ACUTE 12/24/2017 Ot 723.1 CERVICALGIA 12/24/2017 CRYSTAL BOBBY MD Ot J34.89 OTHER SPECIFIED DISORDERS OF NOSE AND NA 12/24/2017 CRYSTAL BOBBY MD Ot Z79.52 A R COLLECTIONS REP (CURRENT) USE OF SYSTEMIC STER 12/24/2017 CRYSTAL BOBBY MD Ot Z87.59 PERSONAL HISTORY OF COMP OF PREG, CHLDBR 12/24/2017 CRYSTAL BOBBY MD Ot Z88.0 ALLERGY STATUS TO PENICILLIN 12/24/2017 CRYSTAL BOBBY MD Ot Z88.1 ALLERGY STATUS TO OTHER ANTIBIOTIC AGENT 12/24/2017 CRYSTAL BOBBY MD Ot Z88.6 ALLERGY STATUS TO ANALGESIC AGENT STATUS 12/24/2017 CRYSTAL BOBBY MD Ot Z88.8 ALLERGY STATUS TO OTH DRUG/MEDS/BIOL SUB 12/24/2017 Ot 723.1 CERVICALGIA 12/26/2017 CRYSTAL BOBBY MD Ot J34.89 OTHER SPECIFIED DISORDERS OF NOSE AND NA 12/26/2017 CRYSTAL BOBBY MD Ot Z79.52 A R COLLECTIONS REP (CURRENT) USE OF SYSTEMIC STER 12/26/2017 CRYSTAL BOBBY MD Ot Z87.59 PERSONAL HISTORY OF COMP OF PREG, CHLDBR 12/26/2017 CRYSTAL BOBBY MD Ot Z88.0 ALLERGY STATUS TO PENICILLIN 12/26/2017 CRYSTAL BOBBY MD Ot Z88.1 ALLERGY STATUS TO OTHER ANTIBIOTIC AGENT 12/26/2017 CRYSTAL BOBBY MD Ot Z88.6 ALLERGY STATUS TO ANALGESIC AGENT STATUS 12/26/2017 CRYSTAL BOBBY MD Ot Z88.8 ALLERGY STATUS TO OTH DRUG/MEDS/BIOL SUB Procedures Code [place] [address] PSYCH DIAG INTER EXAM 02/17/2012 60490 ROUTINE VENIPUNCTURE 02/27/2012 89299 EKG, TRACING (IN-HOUSE) 02/27/2012 94380 GLUCOSE 02/27/2012 33564 LIPID PANEL 02/27/2012 64077 PSYCH DIAGNOSTIC EVALUATION 06/29/2012 79724 MRI SPINE (CERVICAL) W/O CONTRAST 07/10/2012 79772 ROUTINE VENIPUNCTURE 01/09/2013 37374 TSH 01/09/2013 23021 ROUTINE VENIPUNCTURE 02/25/2013 52097 TSH 02/25/2013 70722 URINE DRUG SCREEN (IN-HOUSE ) 03/04/2013 57978 URINE DRUG SCREEN (IN-HOUSE ) 05/07/2013 83174 URINE METH/AMPHETAMINE GC/ MS 05/13/2013 11273 MAMMOGRAM, SCREENING 05/13/2013 S0280 COMPREHENSIVE CARE MANAGEMENT [...] 7-25 CREATININE 0.76 mg/dL 0.50-1.10 eGFR NON-AFR. CITIZEN OF [place] 100 mL/min/1.73m2 > OR=60 eGFR 115 mL/min/1.73m2 [...] - 05/29/17 09:09 TSH 4.53 mIU/L NRG LIPID PANEL - 01/04/18 15:17 CHOLESTEROL, TOTAL 266 mg/dL <200 HDL CHOLESTEROL 53 mg/dL >50 TRIGLYCERIDES 130 mg/dL <150 LDL-CHOLESTEROL 186 mg/dL (calc) NRG CHOL/HDLC RATIO 5.0 (calc) <5.0 NON HDL CHOLESTEROL 213 mg/dL (calc) <130 TSH - 01/04/18 15:17 TSH 34.76 mIU/L NRG TSH - 02/16/18 13:41 TSH 39.77 mIU/L NRG TSH - 03/15/18 14:21 TSH 25.17 mIU/L NRG Encounters ACCT No. Visit Date/Time Discharge Status Pt. Type Provider Facility Loc./Unit Complaint [id number] 04/14/2014 15:00:00 04/14/2014 23:59:59 CLS Outpatient LACIE PARHAM RN [id number] 02/13/2014 08:04:00 02/13/2014 23:59:59 CLS Outpatient LACIE PARHAM RN [id number] 02/04/2014 09:00:00 02/04/2014 23:59:59 CLS Outpatient LACIE PARHAM RN [id number] 01/22/2014 14:45:00 01/22/2014 23:59:59 CLS Outpatient LACIE PARHAM RN [id number] 12/27/2013 14:03:00 12/27/2013 23:59:59 CLS Outpatient JUSTIN ALSTON DO [id number] 05/13/2013 12:51:00 05/13/2013 23:59:59 CLS Outpatient EVANGELINA SEN APRN [id number] 05/07/2013 14:54:00 05/07/2013 23:59:59 CLS Outpatient KIMI HILARIO APRN Franny [id number] 04/08/2013 12:50:00 04/08/2013 23:59:59 CLS Outpatient JUSTIN ALSTON DO [id number] 03/04/2013 12:59:00 03/04/2013 23:59:59 CLS Outpatient HENRY MCINTOSH APRN S [id number] 01/09/2013 12:10:00 01/09/2013 23:59:59 CLS Outpatient HENRY MCINTOSH APRN S [id number] 12/17/2012 15:36:00 12/17/2012 23:59:59 CLS Outpatient HENRY MCINTOSH APRN S [id number] 07/09/2012 10:45:00 07/09/2012 23:59:59 CLS Outpatient HENRY MCINTOSH APRN S [id number] 06/26/2012 15:59:00 06/26/2012 23:59:59 CLS Outpatient [id number] 04/19/2012 09:11:00 04/19/2012 23:59:59 CLS Outpatient JUSTIN ALSTON DO Kalina [id number] 03/03/2012 10:15:00 03/03/2012 23:59:59 CLS Outpatient [id number] 02/16/2012 16:10:00 02/16/2012 23:59:59 CLS Outpatient HENRY MCINTOSH APRN S [id number] 08/07/2012 15:57:00 Document Registration [id number] 06/21/2018 10:00:00 ACT Outpatient AB BARRAZA CORINNE Roberto [facility] [id number] 03/15/2018 14:20:00 Document Registration [id number] 02/16/2018 13:00:00 Document Registration [id number] 01/04/2018 14:20:00 Document Registration [id number] 05/29/2017 09:00:00 Document Registration [id number] 04/06/2017 09:00:00 Document Registration [id number] 03/14/2017 14:00:00 Document Registration [id number] 04/13/2016 08:28:00 04/13/2016 23:59:00 DIS Outpatient PONCHO RANDLE [id number] 09/01/2016 08:43:00 Document Registration [id number] 12/24/2017 02:37:00 12/24/2017 03:11:00 DIS Emergency CRYSTAL BOBBY MD [facility] ER NOSE SWELLING/PAIN [id number] 06/21/2018 20:32:00 Document Registration [id number] 06/21/2018 20:19:00 ACT Emergency MINGO WALTON DO [facility] ER FS RIB PAIN, SOB, NAUSEA [id number] 12/24/2017 02:37:00 Document Registration [id number] 07/13/2012 14:59:00 Document Registration [id number] 09/02/2016 19:07:00 Document Registration
[2018-06-21 21:03] LABS: HEMOGLOBIN 14.4 G/DL (11.5-16.0); WHITE BLOOD COUNT 8.2 10^3/uL (4.3-11.0)
[2018-06-21] MEDS ORDERED: NS IV 1000 ML 1,000 ML IV STA (21:03)
[2018-06-21] MEDS ORDERED: fentaNYL INJECTION 100 MCG/2 ML AMP IVP STA (21:03)
[2018-06-21] MEDS ORDERED: ONDANSETRON 4 MG/2 ML (SDV) Z0FRAN IVP STA (21:03)
[2018-06-21 21:04] LABS: MEAN PLATELET VOLUME 10.4 FL (7.4-10.4); RED CELL DISTRIBUTION WIDTH 13.3 % (10.0-14.5)
--- NOTE | 2018-06-21 21:07 | ED Chest Pain ---
General Chief Complaint: Chest Pain Stated Complaint: RIB PAIN, SOB, NAUSEA History of Present Illness Date Seen by Provider: Jun 21, 2018 Time Seen by Provider: 20:54 Timing/Duration: 1-3 hours Severity/Quality: moderate Location: back Radiation: no radiation Activities at Onset: other (coughing) Modifying Factors: improves with breathing, improves with coughing, improves with movement This is a 37-year-old female active smoker here with right-sided back pain after coughing earlier this evening. The pain is worse with movement or when she coughs or takes a deep breath. No hemoptysis, no leg swelling, no history of blood clots. The pain is moderate to severe at worst, worse with direct palpation and does not radiate. Constant. Sharp in character. Allergies and Home Medications Allergies Coded Allergies: Penicillins (Unverified Allergy, Mild, 06/21/18) aspirin (Verified Allergy, Unknown, 06/21/18) cephalexin (Verified Allergy, Unknown, 06/21/18) folic acid (Verified Allergy, Unknown, 06/21/18) iron (Verified Allergy, Unknown, 06/21/18) penicillin G (Verified Allergy, Unknown, 06/21/18) tramadol (Verified Allergy, Unknown, 06/21/18) Home Medications Bacitracin 3.5 Gm Oint...g., 0.1 GM OP BID Prescribed by: CRYSTAL BOBBY on 12/24/17 0305 Benzonatate 100 Mg Capsule, 200 MG PO TID PRN for COUGH Prescribed by: MINGO WALTON on 06/21/18 214 Hydrocodone/Acetaminophen 1 Each Tablet, 1-2 TAB PO Q4-6HR PRN for PAIN- MODERATE TO SEVERE Prescribed by: MINGO WALTON on 06/21/18 214 Ibuprofen 800 Mg Tablet, 1 TAB PO QID PRN FOR PAIN Prescribed by: CIELO MCINTSOH on 11/18/08 220 Methylprednisolone 4 Mg/Dose-Pack Tab.ds.pk, 0 PO UD FOR BREATHING Prescribed by: CIELO MCINTOSH on 01/28/09 213 Metoclopramide Hcl 10 Mg Tablet, 1 EACH PO QID PRN FOR NAUSEA AND STOMACH DISCOMFORT Prescribed by: CIELO MCINTOSH on 01/20/09 2100 Naproxen 500 Mg Tablet, 1 EACH PO BID Prescribed by: JAZ QUIROZ on 02/11/09 1737 Promethazine Hcl 25 Mg Tablet, 1 TAB PO QID Prescribed by: THOMAS ALLEN on 12/25/08 1809 Sulfamethoxazole/Trimethoprim 1 Each Tablet, 1 EACH PO BID Prescribed by: CRYSTAL BOBBY on 12/24/17 0305 Patient Home Medication List Home Medication List Reviewed: Yes Review of Systems Review of Systems Constitutional: no symptoms reported EENTM: No Symptoms Reported Respiratory: See HPI Cardiovascular: See HPI Gastrointestinal: No Symptoms Reported Genitourinary: No Symptoms Reported Musculoskeletal: see HPI Skin: no symptoms reported Psychiatric/Neurological: No Symptoms Reported Endocrine: No Symptoms Reported Hematologic/Lymphatic: No Symptoms Reported Past Jowvmdf-Nnuagx-Brmgoj Hx Patient Social History Type Used: Cigarettes Recent Foreign Travel: No Contact w/Someone Who Travel: No Recent Hopitalizations: Yes Past Medical History Surgeries: Yes (HYST,BENI) Respiratory: No Cardiac: No Neurological: Yes Headaches /Migraines Reproductive Disorders: Yes (12 MISCARRIAGES) Genitourinary: No Gastrointestinal: No Musculoskeletal: Yes (BACK PROBLEMS/SCIATICA) Endocrine: Yes (STATES "PRODUCE TOO MUCH INSULIN") HEENT: No Cancer: No Psychosocial: Yes Anxiety, Bipolar, Personality Disorder, Schizophrenia, Depression Integumentary: No Blood Disorders: No Physical Exam Vital Signs Vital Signs - First Documented 06/21/18 06/21/18 20:23 21:16 Temp 97.8 Pulse 86 Resp 22 B/P (MAP) 140/77 (98) Pulse Ox 93 O2 Delivery Nasal Cannula O2 Flow Rate 2.00 FiO2 93 Capillary Refill : Height, Weight, BMI Height: 5'2.00" Weight: 250lbs. oz. 113.779860xn; BMI Method:Stated General Appearance: Other (obvious mild visible discomfort, sitting back in bed , no respiratory distress, appears in pain when moving) HEENT: Moist Mucous Membranes Neck: Supple Respiratory: Other (there is good air exchange bilaterally with mild expiratory wheezes bilaterally, there is exquisite tenderness over the right mid back, with normal inspection and no crepitation or induration or fluctuance or other palpatory abnormalities) Cardiovascular: Regular Rate, Rhythm, No Edema, Normal Peripheral Pulses Gastrointestinal: Non Tender, Soft Extremity: No Pedal Edema Neurologic/Psychiatric: Alert, Oriented x3 Skin: Warm/Dry Progress/Results/Core Measures Results/Orders Lab Results Laboratory Tests Test 06/21/18 20:50 Range/Units White Blood Count 8.2 4.3-11.0 10^3/uL Red Blood Count 4.88 4.35-5.85 10^6/uL Hemoglobin 14.4 11.5-16.0 G/DL Hematocrit 44 35-52 % Mean Corpuscular Volume 90 80-99 FL Mean Corpuscular Hemoglobin 30 25-34 PG Mean Corpuscular Hemoglobin Concent 33 32-36 G/DL Red Cell Distribution Width 13.3 10.0-14.5 % Platelet Count 204 130-400 10^3/uL Mean Platelet Volume 10.4 7.4-10.4 FL Sodium Level 139 135-145 MMOL/L Potassium Level 4.5 3.6-5.0 MMOL/L Chloride Level 101 98-107 MMOL/L Carbon Dioxide Level 24 21-32 MMOL/L Anion Gap 14 5-14 MMOL/L Blood Urea Nitrogen 16 7-18 MG/DL Creatinine 1.08 0.60-1.30 MG/DL Estimat Glomerular Filtration Rate 56 BUN/Creatinine Ratio 15 Glucose Level 105 70-105 MG/DL Calcium Level 9.7 8.5-10.1 MG/DL Corrected Calcium 9.3 8.5-10.1 MG/DL Total Bilirubin 0.3 0.1-1.0 MG/DL Aspartate Amino Transf (AST/SGOT) 47 H 5-34 U/L Alanine Aminotransferase (ALT/SGPT) 84 H 0-55 U/L Alkaline Phosphatase 121 40-136 U/L Troponin T < 6 <=10 NG/L Pro-B-Type Natriuretic Peptide 14.8 <75.0 PG/ML Total Protein 7.3 6.4-8.2 GM/DL Albumin 4.5 3.2-4.5 GM/DL My Orders Orders - ANTON,MINGO T DO Chest 1 View Ap/Pa Only (06/21/18 20:29) Ekg Tracing (06/21/18 20:29) Comprehensive Metabolic Panel (06/21/18 20:29) O2 (06/21/18 20:29) Monitor-Rhythm Ecg Trace Only (06/21/18 20:29) Saline Lock/Iv-Start (06/21/18 20:29) Cbc No Diff (06/21/18 20:29) Probnp Fs (06/21/18 20:29) Hcg,Qualitative Urine (06/21/18 20:29) Troponin T (06/21/18 20:29) Ns Iv 1000 Ml (Sodium Chloride 0.9%) (06/21/18 21:03) Fentanyl Injection (Sublimaze Injection (06/21/18 21:03) Ondansetron Injection (Zofran Injectio (06/21/18 21:03) Incentive Spirometry (Nursing) Q2H (06/21/18 21:43) Vital Signs/I&O 06/21/18 06/21/18 06/21/18 20:23 21:16 21:53 Temp 97.8 98.3 Pulse 86 84 Resp 22 16 B/P (MAP) 140/77 (98) 121/69 (86) Pulse Ox 93 97 O2 Delivery Nasal Cannula Room Air O2 Flow Rate 2.00 FiO2 93 06/22/18 00:00 Intake Total 200 ml Balance 200 ml Progress Progress Note : Progress Note Patient will be treated with perception for Mcintosh for right sided rib fracture. We will give Tessalon for cough. I counseled patient regarding smoking cessation. We provided incentive spirometer. I reviewed [facility] website, there were no recent prescriptions for controlled substances. Departure Impression Primary Impression: Right rib fracture Qualified Codes: S22.31XA - Fracture of one rib, right side, initial encounter for closed fracture Disposition: 01 HOME, SELF-CARE Condition: Stable Departure-Patient Inst. Referrals: HUSSAIN MAE MD (PCP/Family) Primary Care Physician Patient Instructions: Rib Fracture (DC) Scripts Hydrocodone/Acetaminophen (Mcintosh 5-325 Tablet) 1 Each Tablet 1-2 TAB PO Q4-6HR PRN for PAIN-MODERATE TO SEVERE MDD 10 for 5 Days, #24 TAB Prov: MINGO WALTON DO 06/21/18 Benzonatate (TESSALON PERLES) 100 Mg Capsule 200 MG PO TID PRN for COUGH for 10 Days, #30 CAP Prov: MINGO WALTON DO 06/21/18 MINGO WALTON DO Jun 21, 2018 21:07
--- NOTE | 2018-06-21 21:29 | Diagnostic Imaging Report ---
INDICATION: Chest pain EXAMINATION: Chest 06/21/2018 Comparison made to a chest dated 02/11/2009 FINDINGS: Heart is stable. Pulmonary vasculature is slightly prominent. Densities at the bases likely caused by the portable technique and overlying soft tissues. There is an irregularity noted along the right posterolateral likely eighth rib which has the appearance of a fracture, age indeterminate; correlate clinically. No pneumothorax is seen. IMPRESSION: 1. Possible right eighth rib fracture, age indeterminate. Clinical correlation recommended. 2. Minimal density at the right lung base likely caused by overlying soft tissues with atelectasis not excluded and followup 2 view chest when patient is able would be recommended. Dictated by: Dictated on workstation # [id number]
[2018-06-21 21:41] LABS: ALBUMIN 4.5 GM/DL (3.2-4.5); BILIRUBIN,TOTAL 0.3 MG/DL (0.1-1.0); CALCIUM 9.7 MG/DL (8.5-10.1); CREATININE SERUM 1.08 MG/DL (0.60-1.30); POTASSIUM 4.5 MMOL/L (3.6-5.0); TOTAL PROTEIN 7.3 GM/DL (6.4-8.2)
[2018-06-21] MEDS ORDERED: BENZ100C18 PO (21:42)
[2018-06-21] MEDS ORDERED: HYDR-4226 PO (21:42)
[2018-06-21 21:53] VITALS: BP 121/69
== END 2018-06-21 21:53 | disposition home or self-care (01) ==
LOC: EDUNIT# 20:18 → ER FS 20:19
DX: S22.31XA Fracture of one rib, right side, initial encounter for closed fracture (principal); G43.909 Migraine, unspecified, not intractable, without status migrainosus; F41.9 Anxiety disorder, unspecified; F31.9 Bipolar disorder, unspecified; F20.9 Schizophrenia, unspecified; F60.9 Personality disorder, unspecified; F17.210 Nicotine dependence, cigarettes, uncomplicated; Z88.0 Allergy status to penicillin; Z88.6 Allergy status to analgesic agent; Z87.59 Personal history of other complications of pregnancy, childbirth and the puerperium; Z90.49 Acquired absence of other specified parts of digestive tract; Z90.710 Acquired absence of both cervix and uterus; Z88.1 Allergy status to other antibiotic agents; Z88.8 Allergy status to other drugs, medicaments and biological substances; Z79.52 Long term (current) use of systemic steroids; X58.XXXA Exposure to other specified factors, initial encounter
CPT/HCPCS: 36415; 71045; 80053; 83880; 84484; 85027; 93005; 93041

== ENCOUNTER 2018-10-19 21:50 | Emergency (ER) | payer MEDICAID ==
[~2018-10-19] VITALS: Ht 157.5 cm; Wt 111.6 kg
[~2018-10-19 21:50] MED LIST changes: +BENZ100C18 PO; +HYDR-4226 PO
--- OUTSIDE RECORDS SUMMARY | 2018-10-19 22:03 | XMS REPORT ---
Author Author Migration, Doctor Organization [facility] Address Unknown Phone Unavailable Care Team Providers Care Fur Mixer Name Role Phone Migration, Doctor Unavailable Unavailable PROBLEMS Type Condition ICD9-CM Code MBE00-EQ Code Onset Dates Condition Status SNOMED Code Problem Panic disorder with agoraphobia F40.01 Active 86092354 Problem COPD (chronic obstructive pulmonary disease) J44.9 Active 55602407 Problem Bipolar disease, chronic F31.9 Active 99545533 Problem Chronic pain G89.29 Active 74654488 Problem Degenerative joint disease M19.90 Active 310539841 Problem Morbid (severe) obesity due to excess calories E66.01 Active 54878710063544 Problem Body mass index (BMI) of 40.0-44.9 in adult Z68.41 Active 472047981 Problem Xanax use disorder, moderate F13.20 Active 690187919 Problem Opioid use disorder, moderate, dependence F11.20 Active 24741869 Problem Psychosis, unspecified psychosis type F29 Active 84848204 Problem Methamphetamine use disorder, severe, 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 Active 16844511 Problem Lumbago with sciatica, left side M54.42 Active 049799335 Problem Personality disorder F60.9 Active 31501704 Problem Other chronic pain G89.29 Active 25033609 Problem Lumbago with sciatica, right side M54.41 Active [id number] Problem Depressive disorder, not elsewhere classified F32.9 Active 93831305 Problem Right sciatic nerve pain M54.31 Active 45894596 Problem 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 Active 615501512599811 Problem Nocturnal hypoxemia G47.34 Active 342644019 Problem Pre-diabetes R73.03 Active 425344216 Problem Bilateral carpal tunnel syndrome G56.03 Active 78665086 Problem Acquired hypothyroidism E03.9 Active 459392888 Problem Cigarette nicotine dependence without complication F17.210 Active 81291286 Problem Fibrocystic changes of left breast N60.12 Active 06964587 Problem Hypothyroidism (acquired) E03.9 Active 42356212 Problem Mood disorder F39 Active 53733420 Problem Nicotine withdrawal F17.203 Active 30251549 ALLERGIES No Information ENCOUNTERS Encounter Location Date Diagnosis [place] [id number] [place] [address] Sep, [place] [id number] [place] [address] Sep, [place] [address] [address] Sep, [place] [id number] [place] [address] August, High risk medication use Z79.899 ; Methamphetamine use disorder, severe, 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 ; Psychosis, unspecified psychosis type F29 ; Xanax use disorder, moderate F13.20 ; Personality disorder F60.9 ; Opioid use disorder, moderate, dependence F11.20 and Morbid obesity E66.01 [place] [address] [address] 04 Jul, 2018 Closed fracture of one rib of right side with routine healing, subsequent encounter S22.31XD [address] [address] 14 Jun, 2018 Acute pain of right wrist M25.531 [place] [id number] [place] [address] 14 Jun, 2018 High risk medication use Z79.899 ; Methamphetamine use disorder, severe, 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 ; Psychosis, unspecified psychosis type F29 ; Xanax use disorder, moderate F13.20 ; Personality disorder F60.9 ; Opioid use disorder, moderate, dependence F11.20 and Morbid obesity E66.01 [place] [id number] [place] [address] 14 May, 2018 Bilateral carpal tunnel syndrome G56.03 [place] [id number] [place] [address] Apr, [place] [id number] [place] [address] Apr, Bronchitis J40 [place] [address] [address] Apr, Nocturnal hypoxemia G47.34 and Acute pain of right wrist M25.531 [place] [id number] [place] [address] Apr, Bronchitis J40 and Hypothyroidism (acquired) E03.9 [facility] [id number] [place] [address] Mar, BMI 45.0-49.9, adult Z68.42 ; Right-sided chest wall pain R07.89 and Cough R05 [place] [id number] [place] [address] 14 Mar, 2018 [place] [address] [address] 13 Mar, 2018 Methamphetamine use disorder, severe, 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 ; Psychosis, unspecified psychosis type F29 ; Xanax use disorder, moderate F13.20 ; Personality disorder F60.9 ; Opioid use disorder, moderate, dependence F11.20 and BMI 45.0-49.9, adult Z68.42 [place] [id number] [place] [address] Mar, Acquired hypothyroidism E03.9 [place] [id number] [place] [address] 06 Mar, 2018 Bronchitis J40 ; Costochondritis M94.0 ; Hypothyroidism (acquired) E03.9 ; Pre-diabetes R73.03 ; Acquired hypothyroidism E03.9 and BMI 45.0-49.9, adult Z68.42 [place] [id number] [place] [address] Feb, Lumbago with sciatica, right side M54.41 [place] [address] [address] Feb, Acquired hypothyroidism E03.9 [place] [id number] [place] [address] Feb, Liver enzyme elevation R74.8 [place] [id number] [place] [address] Feb, Mood disorder F39 ; Nicotine withdrawal F17.203 ; Liver enzyme elevation R74.8 ; Hypothyroidism (acquired) E03.9 and BMI 45.0-49.9, adult Z68.42 [place] [id number] [place] [address] Jan, Methamphetamine use disorder, severe, 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 ; Psychosis, unspecified psychosis type F29 ; Personality disorder F60.9 ; Opioid use disorder, moderate, dependence F11.20 ; Xanax use disorder, moderate F13.20 and BMI 45.0-49.9, adult Z68.42 [place] [id number] [place] [address] Jan, Liver enzyme elevation R74.8 and Hypothyroidism (acquired) E03.9 [place] [id number] [place] [address] Dec, BMI 40.0-44.9, adult Z68.41 ; Chronic pain G89.29 ; Degenerative joint disease M19.90 and Pre-diabetes R73.03 [place] [address] [place] [address] Dec, [place] [id number] [place] [address] Dec, Methamphetamine use disorder, severe, 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 ; Psychosis, unspecified psychosis type F29 ; Personality disorder F60.9 ; Opioid use disorder, moderate, dependence F11.20 ; Xanax use disorder, moderate F13.20 and BMI 45.0-49.9, adult Z68.42 [place] [id number] [place] [address] Dec, [place] [id number] [place] [address] Oct, Breast pain N64.4 ; Fibrocystic changes of left breast N60.12 and Bilateral otitis media with effusion H65.93 [facility] [id number] [place] [address] Sep, 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 [place] [id number] [place] [address] Sep, [place] [address] [address] Sep, Methamphetamine use disorder, severe, 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 ; Psychosis, unspecified psychosis type F29 ; Personality disorder F60.9 ; Opioid use disorder, moderate, dependence F11.20 ; Xanax use disorder, moderate F13.20 and BMI 40.0-44.9, adult Z68.41 [place] [id number] [place] [address] Sep, Depressive disorder, not elsewhere classified F32.9 and Psychosis, unspecified psychosis type F29 [place] [id number] [place] [address] August, [place] [id number] [place] [address] August, Depressive disorder, not elsewhere classified F32.9 and Psychosis, unspecified psychosis type F29 [place] [id number] [place] [address] August, [place] [address] [address] August, Lumbago with sciatica, right side M54.41 and Other chronic pain G89.29 [facility] [id number] [place] [address] Jul, Right sciatic nerve pain M54.31 [place] [id number] [place] [address] Jul, Acquired hypothyroidism E03.9 [place] [id number] [place] [address] Jul, Depressive disorder, not elsewhere classified F32.9 and Psychosis, unspecified psychosis type F29 [place] [id number] [place] [address] Jul, Acquired hypothyroidism E03.9 ; Lumbago with sciatica, right side M54.41 and Lumbar radiculopathy, acute M54.16 [place] [id number] [place] [address] Jul, Methamphetamine use disorder, severe, 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 ; Psychosis, unspecified psychosis type F29 ; Personality disorder F60.9 ; Opioid use disorder, moderate, dependence F11.20 ; Xanax use disorder, moderate F13.20 and BMI 40.0-44.9, adult Z68.41 [place] [id number] [place] [address] Jun, Methamphetamine use disorder, severe, 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 ; Psychosis, unspecified psychosis type F29 ; Personality disorder F60.9 ; Opioid use disorder, moderate, dependence F11.20 and Xanax use disorder, moderate F13.20 [place] [address] [place] [address] Jun, Depressive disorder, not elsewhere classified F32.9 and Psychosis, unspecified psychosis type F29 [place] [id number] [place] [address] Jun, Lumbar radiculopathy, acute M54.16 [place] [id number] [place] [address] Jun, Lumbar radiculopathy, acute M54.16 ; Strain of abdominal wall, initial encounter S39.011A and BMI 40.0-44.9, adult Z68.41 [place] [id number] [place] [address] Jun, [place] [address] [address] May, [place] [address] [address] May, Methamphetamine use disorder, severe, 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 ; Psychosis, unspecified psychosis type F29 ; Personality disorder F60.9 ; Opioid use disorder, moderate, dependence F11.20 and Xanax use disorder, moderate F13.20 [place] [address] [address] May, [address] [address] May, [place] [address] [address] May, Lumbago with sciatica, left side M54.42 ; Lumbago with sciatica, right side M54.41 ; Other chronic pain G89.29 ; Weight gain R63.5 ; Acquired hypothyroidism E03.9 and BMI 40.0-44.9, adult Z68.41 [place] [id number] [place] [address] Apr, Cigarette nicotine dependence without complication F17.210 [place] [id number] [place] [address] Apr, Acute bilateral low back pain without sciatica M54.[address] [address] Apr, Methamphetamine use disorder, severe, 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 ; Psychosis, unspecified psychosis type F29 ; Personality disorder F60.9 ; Opioid use disorder, moderate, dependence F11.20 and Xanax use disorder, moderate F13.20 [facility] [address] [address] 12 Apr, 2017 Wheezing R06.2 and Bronchitis J40 [place] [address] [place] [id number] 02 Apr, 2017 Bronchitis J40 ; Cigarette nicotine dependence without complication F17.210 and Bipolar disease, chronic F31.9 [place] [address] [address] Mar, Acquired hypothyroidism E03.9 [place] [address] [address] Mar, Acquired hypothyroidism E03.9 [place] [address] [address] Mar, Orthostatic hypotension I95.1 and Non-intractable vomiting with nausea, unspecified vomiting type R11.[address] [address] 14 Mar, 2017 Strain of lumbar region, initial encounter S39.012A [address] [address] Mar, [facility] [address] [address] 07 Mar, 2017 Bronchitis J40 [place] [address] [address] 05 Mar, 2017 Degenerative joint disease M19.90 ; Elevated LFTs R79.89 ; Adenopathy R59.1 ; Drug use F19.90 ; Pre-diabetes R73.03 and COPD (chronic obstructive pulmonary disease) J44.9 [facility] [address] [address] 30 Feb, 2017 Left hand pain M79.642 and Contusion of left hand, initial encounter S60.222A [address] [address] Feb, Body aches R52 and Flu-like symptoms R68.89 [place] [id number] [place] [address] Jan, [place] [id number] [place] [address] Jan, Bipolar disease, chronic F31.9 ; Acquired hypothyroidism E03.9 and Encounter for immunization Z23 [facility] [address] [place] [id number] [place] [address] 05 Dec, 2016 Crushing injury of left wrist and hand, initial encounter S67.42XA [address] [address] Sep, [place] [address] [address] Sep, Bipolar disease, chronic F31.9 ; Panic disorder with agoraphobia F40.01 and Proteinuria, unspecified type R80.9 [place] [id number] [place] [address] August, [address] [address] August, Degenerative joint disease M19.90 ; Left-sided chest wall pain R07.89 ; Bipolar disease, chronic F31.9 ; Type 2 diabetes mellitus without complication, without long-term current use of insulin E11.9 ; Acquired hypothyroidism E03.9 and Acute cystitis without hematuria N30.00 [place] [id number] [place] [address] Mar, [place] [address] [address] Feb, [facility] [address] [place] [id number] [place] [address] Feb, Right hand pain M79.641 [facility] [address] [place] [address] Feb, Bronchitis J40 ; Acute non-recurrent pansinusitis J01.40 and Seasonal allergic rhinitis due to other allergic trigger J30.89 [facility] [address] [place] [address] Dec, [facility] [address] [place] [address] Mar, Left-sided chest wall pain R07.89 and Chronic pain G89.29 [facility] [id number] [place] [address] Jul, [facility] [id number] [place] [address] Jul, [facility] [id number] [place] [address] May, [facility] [id number] [place] [address] May, [facility] [id number] [place] [address] Apr, [facility] [id number] [place] [address] Apr, [facility] [id number] [place] [address] Mar, [facility] [id number] [place] [address] Mar, [facility] [id number] [place] [address] Feb, [facility] [id number] [place] [address] Feb, [facility] [id number] [place] [address] Jan, [facility] [id number] [place] [address] 28 Jan, 2014 [facility] [place] [facility] [address] [id number] [place] [address] 28 Jan, 2014 [facility] [place] [facility] [address] [id number] [place] [address] 28 Jan, 2014 [facility] [place] [facility] [address] [id number] [place] [address] 15 Jan, 2014 [facility] [place] [facility] [address] [id number] [place] [address] 15 Jan, 2014 [facility] [place] [facility] [address] [id number] [place] [address] 19 Dec, 2013 [facility] [place] [facility] [address] [id number] [place] [address] 19 Dec, 2013 [facility] [place] [facility] [address] [id number] [place] [address] 19 Dec, 2013 [facility] [place] [facility] [address] [id number] [place] [address] 19 Dec, 2013 [facility] [place] [facility] [address] [id number] [place] [address] 18 Dec, 2013 [facility] [place] [facility] [address] [id number] [place] [address] 18 Dec, 2013 [facility] [place] [facility] [address] [id number] [place] [address] 16 Dec, 2013 [facility] [place] [facility] [address] [id number], [place] [address] 16 Dec, 2013 [facility] [place] [facility] [address] [id number] [place] [address] 17 Sep, 2013 [facility] [place] [facility] [address] [id number] [place] [address] 17 Sep, 2013 [facility] [place] [facility] [address] [id number] [place] [address] 15 Jul, 2013 [facility] [place] [facility] [address] [id number] [place] [address] 15 Jul, 2013 [facility] [place] [facility] [address] [id number] [place] [address] Jul, [facility] [place] [facility] [address] [id number] [place] [address] Jul, [facility] [place] [facility] [address] [id number] [place] [address] Jul, [facility] [place] [facility] [address] [id number] [place] [address] Jul, [facility] [place] [facility] [address] [id number] [place] [address] Jul, [facility] [place] [facility] [address] [id number] [place] [address] Jul, [facility] [place] [facility] [address] [id number] [place] [address] Jun, [facility] [place] [facility] [address] [id number] [place] [address] Jun, [facility] [place] [facility] [address] [id number] [place] [address] May, [facility] [place] [facility] [address] [id number] [place] [address] May, [facility] [place] [facility] [address] [id number] [place] [address] May, [facility] [place] [facility] [address] [id number] [place] [address] May, [facility] [place] [facility] [address] [id number] [place] [address] Apr, [facility] [place] [facility] [address] [id number] [place] [address] Apr, [facility] [place] [facility] [address] [id number] [place] [address] Mar, [facility] [place] [facility] [address] [id number] [place] [address] Mar, [facility] [place] [facility] [address] [id number] [place] [address] Feb, [facility] [place] [facility] [address] [facility] [id number] [place] [address] Feb, [facility] [place] [facility] [address] [id number] [place] [address] Feb, [facility] [place] [facility] [address] [id number] [place] [address] Feb, [facility] [place] [facility] [address] [id number] [place] [address] Jan, [facility] [place] [facility] [address] [facility] [id number] [place] [address] Jan, [facility] [place] [facility] [address] [id number], [place] [address] Jan, [facility] [place] [facility] [address] [id number] [place] [address] Jan, [facility] [place] [facility] [address] [facility] [id number], [place] [address] Jan, [facility] [place] [facility] [address] [id number], [place] [address] Dec, [facility] [place] [facility] [address] [id number], [place] [address] Dec, [facility] [place] [facility] [address] [id number], [place] [address] Nov, [facility] [place] [facility] [address] [id number], [place] [address] Sep, [facility] [place] [facility] [address] [id number], [place] [address] August, [facility] [place] [facility] [address] [id number] [place] [address] August, [facility] [address] [id number] [place] [address] Jul, [facility] [address] [id number] [place] [address] Jul, [facility] [address] [id number] [place] [address] Jul, [facility] [address] [id number] [place] [address] Jul, [facility] [address] [id number] [place] [address] Jul, [facility] [address] [id number] [place] [address] Jul, [facility] [address] [id number] [place] [address] Jul, [facility] [address] [id number] [place] [address] Jun, [facility] [address] [id number] [place] [address] Jun, [facility] [address] [id number] [place] [address] May, [facility] [address] [id number] [place] [address] Apr, [facility] [address] [id number] [place] [address] Apr, [facility] [place] [facility] [address] [id number] [place] [address] Mar, [facility] [place] [facility] [address] [id number] [place] [address] Mar, [facility] [address] [id number] [place] [address] Mar, [facility] [place] [facility] [address] [id number] [place] [address] Feb, [facility] [place] [facility] [address] [id number] [place] [address] Feb, [facility] [place] [facility] [address] [id number] [place] [address] Feb, [facility] [place] [facility] [address] [id number] [place] [address] Feb, [facility] [place] [facility] [address] [id number] [place] [address] Feb, [facility] [place] [facility] [address] [id number] [place] [address] Feb, [facility] [place] [facility] [address] [id number] [place] [address] Feb, [facility] [place] [facility] [address] [id number] [place] [address] 16 Feb, 2012 [facility] [place] [facility] [address] [id number] [place] [address] 14 Feb, 2012 [facility] [place] [facility] [address] [id number] [place] [address] Feb, [facility] [place] [facility] [address] [id number] [place] [address] Feb, [facility] [place] [facility] [address] [id number] [place] [address] 27 Dec, 2011 [facility] [place] [facility] [address] [id number] [place] [address] 07 Dec, 2011 [facility] [place] [facility] [address] [id number] [place] [address] 30 Nov, 2011 [facility] [place] [facility] [address] [id number] [place] [address] Nov, [facility] [place] [facility] [address] [id number], [place] [address] Oct, [facility] [address] [id number] [place] [address] Oct, [facility] [place] [facility] [address] [id number] [place] [address] Sep, [facility] [place] [facility] [address] [id number] [place] [address] May, [facility] [place] [facility] [address] [id number] [place] [address] May, [facility] [address] [id number] [place] [address] May, [facility] [place] [facility] [address] [id number] [place] [address] Apr, [facility] [address] [facility] [id number], [place] [address] Mar, [facility] [place] [facility] [address] [id number] [place] [address] Mar, [facility] [place] [facility] [address] [facility] [id number] [place] [address] Feb, [facility] [place] [facility] [address] [facility] [id number] [place] [address] Feb, [facility] [place] [facility] [address] [facility] [id number], [place] [address] Feb, [facility] [place] [facility] [address] [id number], [place] [address] Jan, [facility] [place] [facility] [address] [id number] [place] [address] Jan, [facility] [place] [facility] [address] [facility] [id number] [place] [address] Dec, [facility] [place] [facility] [address] [facility] [id number] [address] Mar, [facility] [place] [facility] [address] [id number] [address] Feb, [facility] [id number] [address] Feb, [facility] [id number], [place] [address] Feb, [facility] [id number] [place] [address] Jan, [facility] [id number] [address] 16 Dec, 2008 [facility] [id number] [place] [address] Nov, [facility] [id number], [place] [address] Sep, [facility] [id number] [place] [address] August, [facility] [id number] [place] [address] May, [facility] [id number] [place] [address] Mar, IMMUNIZATIONS No Known Immunizations SOCIAL HISTORY Never Assessed REASON FOR VISIT [facility] PLAN OF CARE VITAL SIGNS MEDICATIONS Unknown [...] Surgical History hysterectomy, total with unilateral salpingo-oophorectomy (USO) Surgical History hernia repair-hiatal Hospitalization History Surgery(s)/Childbirth(s) Hospitalization History inpatient multiple times for psychiatric, harming, suicide ideat and attempts. [facility] last around 2006 Hospitalization History left foot swollen, stepped in [facility] 05/02/17 Hospitalization History [facility] 06/2018
--- OUTSIDE RECORDS SUMMARY | 2018-10-19 22:04 | XMS REPORT ---
Author Author Migration, Doctor Organization [facility] Address Unknown Phone Unavailable Care Team Providers Care Manager Quality Name Role Phone Migration, Doctor Unavailable Unavailable PROBLEMS Type Condition ICD9-CM Code NMH87-UW Code Onset Dates Condition Status SNOMED Code Problem Panic disorder with agoraphobia F40.01 Active 60225902 Problem COPD (chronic obstructive pulmonary disease) J44.9 Active 49226228 Problem Bipolar disease, chronic F31.9 Active 49214362 Problem Chronic pain G89.29 Active 04586526 Problem Degenerative joint disease M19.90 Active 285000949 Problem Morbid (severe) obesity due to excess calories E66.01 Active 86045142213507 Problem Body mass index (BMI) of 40.0-44.9 in adult Z68.41 Active 974231155 Problem Xanax use disorder, moderate F13.20 Active 276320729 Problem Opioid use disorder, moderate, dependence F11.20 Active 34745437 Problem Psychosis, unspecified psychosis type F29 Active 99572799 Problem Methamphetamine use disorder, severe, 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 Active 41545440 Problem Lumbago with sciatica, left side M54.42 Active 421403033 Problem Personality disorder F60.9 Active 98943653 Problem Other chronic pain G89.29 Active 74326689 Problem Lumbago with sciatica, right side M54.41 Active 853621453375742 Problem Depressive disorder, not elsewhere classified F32.9 Active 03432011 Problem Right sciatic nerve pain M54.31 Active 61073297 Problem 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 Active 453174607234230 Problem Nocturnal hypoxemia G47.34 Active 040736298 Problem Pre-diabetes R73.03 Active 131743563 Problem Bilateral carpal tunnel syndrome G56.03 Active 84860617 Problem Acquired hypothyroidism E03.9 Active 313073672 Problem Cigarette nicotine dependence without complication F17.210 Active 39652165 Problem Fibrocystic changes of left breast N60.12 Active 01888636 Problem Hypothyroidism (acquired) E03.9 Active 96737617 Problem Mood disorder F39 Active 39219259 Problem Nicotine withdrawal F17.203 Active 47790998 ALLERGIES No Information ENCOUNTERS Encounter Location Date Diagnosis [place] [address] [address] August, [place] [address] [address] Jul, Closed fracture of one rib of right side with routine healing, subsequent encounter S22.31XD [place] [address] [address] 14 Jun, 2018 Acute pain of right wrist M25.531 [place] [address] [address] 14 Jun, 2018 High risk medication use Z79.899 ; Methamphetamine use disorder, severe, 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 ; Psychosis, unspecified psychosis type F29 ; Xanax use disorder, moderate F13.20 ; Personality disorder F60.9 ; Opioid use disorder, moderate, dependence F11.20 and Morbid obesity E66.01 [place] [address] [address] 14 May, 2018 Bilateral carpal tunnel syndrome G56.03 [place] [address] [address] Apr, [place] [address] [address] Apr, Bronchitis J40 [place] [address] [address] Apr, Nocturnal hypoxemia G47.34 and Acute pain of right wrist M25.531 [place] [address] [address] Apr, Bronchitis J40 and Hypothyroidism (acquired) E03.9 [facility] [address] [address] Mar, BMI 45.0-49.9, adult Z68.42 ; Right-sided chest wall pain R07.89 and Cough R05 [place] [address] [place] [id number] [place] [address] 14 Mar, 2018 [place] [address] [address] 13 Mar, 2018 Methamphetamine use disorder, severe, 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 ; Psychosis, unspecified psychosis type F29 ; Xanax use disorder, moderate F13.20 ; Personality disorder F60.9 ; Opioid use disorder, moderate, dependence F11.20 and BMI 45.0-49.9, adult Z68.42 [place] [address] [address] 07 Mar, 2018 Acquired hypothyroidism E03.9 [place] [address] [address] 06 Mar, 2018 Bronchitis J40 ; Costochondritis M94.0 ; Hypothyroidism (acquired) E03.9 ; Pre-diabetes R73.03 ; Acquired hypothyroidism E03.9 and BMI 45.0-49.9, adult Z68.42 [place] [address] [address] 12 Feb, 2018 Lumbago with sciatica, right side M54.41 [place] [address] [address] Feb, Acquired hypothyroidism E03.9 [place] [address] [address] Feb, Liver enzyme elevation R74.8 [place] [address] [place] [id number] [place] [address] 09 Feb, 2018 Mood disorder F39 ; Nicotine withdrawal F17.203 ; Liver enzyme elevation R74.8 ; Hypothyroidism (acquired) E03.9 and BMI 45.0-49.9, adult Z68.42 [place] [address] [address] Jan, Methamphetamine use disorder, severe, 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 ; Psychosis, unspecified psychosis type F29 ; Personality disorder F60.9 ; Opioid use disorder, moderate, dependence F11.20 ; Xanax use disorder, moderate F13.20 and BMI 45.0-49.9, adult Z68.42 [place] [address] [place] [id number] [place] [address] Jan, Liver enzyme elevation R74.8 and Hypothyroidism (acquired) E03.9 [place] [address] [address] 27 Dec, 2017 BMI 40.0-44.9, adult Z68.41 ; Chronic pain G89.29 ; Degenerative joint disease M19.90 and Pre-diabetes R73.03 [place] [address] [address] Dec, [place] [address] [address] Dec, Methamphetamine use disorder, severe, 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 ; Psychosis, unspecified psychosis type F29 ; Personality disorder F60.9 ; Opioid use disorder, moderate, dependence F11.20 ; Xanax use disorder, moderate F13.20 and BMI 45.0-49.9, adult Z68.42 [place] [address] [address] Dec, [place] [address] [address] Oct, Breast pain N64.4 ; Fibrocystic changes of left breast N60.12 and Bilateral otitis media with effusion H65.93 [facility] [address] [address] Sep, 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 [place] [address] [address] Sep, [place] [address] [address] Sep, Methamphetamine use disorder, severe, 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 ; Psychosis, unspecified psychosis type F29 ; Personality disorder F60.9 ; Opioid use disorder, moderate, dependence F11.20 ; Xanax use disorder, moderate F13.20 and BMI 40.0-44.9, adult Z68.41 [place] [address] [place] [id number] [place] [address] Sep, Depressive disorder, not elsewhere classified F32.9 and Psychosis, unspecified psychosis type F29 [place] [address] [address] August, [place] [address] [address] August, Depressive disorder, not elsewhere classified F32.9 and Psychosis, unspecified psychosis type F29 [place] [address] [address] August, [place] [address] [place] [id number] [place] [address] August, Lumbago with sciatica, right side M54.41 and Other chronic pain G89.29 [facility] [address] [place] [id number] [place] [address] Jul, Right sciatic nerve pain M54.31 [place] [address] [place] [id number] [place] [address] Jul, Acquired hypothyroidism E03.9 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 ; Psychosis, unspecified psychosis type F29 ; Personality disorder F60.9 ; Opioid use disorder, moderate, dependence F11.20 ; Xanax use disorder, moderate F13.20 and BMI 40.0-44.9, adult Z68.41 [place] [address] [place] [id number] [place] [address] Jun, Methamphetamine use disorder, severe, 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 ; Psychosis, unspecified psychosis type F29 ; Personality disorder F60.9 ; Opioid use disorder, moderate, dependence F11.20 and Xanax use disorder, moderate F13.20 [place] [id number] [place] [address] Jun, Depressive disorder, not elsewhere classified F32.9 and Psychosis, unspecified psychosis type F29 [place] [id number] [place] [address] Jun, Lumbar radiculopathy, acute M54.[address] [address] Jun, Lumbar radiculopathy, acute M54.16 ; Strain of abdominal wall, initial encounter S39.011A and BMI 40.0-44.9, adult Z68.41 [place] [id number] [place] [address] Jun, [place] [address] [place] [id number] [place] [address] May, [address] [address] May, Methamphetamine use disorder, severe, 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41 [place] [address] [address] Apr, Cigarette nicotine dependence without complication F17.210 [place] [address] [address] Apr, Acute bilateral low back pain without sciatica M54.5 [place] [address] [place] [id number] [place] [address] Apr, Methamphetamine use disorder, severe, 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 ; Psychosis, unspecified psychosis type F29 ; Personality disorder F60.9 ; Opioid use disorder, moderate, dependence F11.20 and Xanax use disorder, moderate F13.20 [facility] [address] [place] [id number] [place] [address] Apr, Wheezing R06.2 and Bronchitis J40 [place] [address] [place] [id number] [place] [address] Apr, Bronchitis J40 ; Cigarette nicotine dependence without complication F17.210 and Bipolar disease, chronic F31.9 [place] [address] [place] [id number] [place] [address] Mar, Acquired hypothyroidism E03.9 [place] [address] [place] [id number] [place] [address] Mar, Acquired hypothyroidism E03.9 [place] [id number] [place] [address] Mar, Orthostatic hypotension I95.1 and Non-intractable vomiting with nausea, unspecified vomiting type R11.[address] [place] [address] 14 Mar, 2017 Strain of lumbar region, initial encounter S39.012A [address] [address] Mar, [facility] [address] [place] [address] Mar, Bronchitis J40 [place] [id number] [place] [address] 05 Mar, 2017 Degenerative joint disease M19.90 ; Elevated LFTs R79.89 ; Adenopathy R59.1 ; Drug use F19.90 ; Pre-diabetes R73.03 and COPD (chronic obstructive pulmonary disease) J44.9 [facility] [address] [place] [id number] [place] [address] 30 Feb, 2017 Left hand pain M79.642 and Contusion of left hand, initial encounter S60.222A [place] [id number] [place] [address] Feb, Body aches R52 and Flu-like symptoms R68.89 [place] [address] [place] [id number] [place] [address] Jan, [place] [id number] [place] [address] Jan, Bipolar disease, chronic F31.9 ; Acquired hypothyroidism E03.9 and Encounter for immunization Z23 [facility] [address] [place] [id number] [place] [address] 05 Dec, 2016 Crushing injury of left wrist and hand, initial encounter S67.42XA [place] [id number] [place] [address] Sep, [address] [address] Sep, Bipolar disease, chronic F31.9 ; Panic disorder with agoraphobia F40.01 and Proteinuria, unspecified type R80.[address] [address] August, [place] [address] [address] August, Degenerative joint disease M19.90 ; Left-sided chest wall pain R07.89 ; Bipolar disease, chronic F31.9 ; Type 2 diabetes mellitus without complication, without long-term current use of insulin E11.9 ; Acquired hypothyroidism E03.9 and Acute cystitis without hematuria N30.[address] [address] Mar, [place] [address] [address] Feb, [facility] [address] [address] Feb, Right hand pain M79.641 [facility] [place] [id number] [place] [address] Feb, Bronchitis J40 ; Acute non-recurrent pansinusitis J01.40 and Seasonal allergic rhinitis due to other allergic trigger J30.89 [place] [id number] [place] [address] Dec, [facility] [address] [address] Mar, Left-sided chest wall pain R07.89 and Chronic pain G89.29 [place] [id number] [place] [address] Jul, [address] [place] [address] Jul, [facility] [place] [facility] [address] [id number] [place] [address] May, [facility] [place] [facility] [address] [id number] [place] [address] May, [facility] [place] [facility] [address] [id number] [place] [address] Apr, [facility] [place] [facility] [address] [id number] [place] [address] Apr, [facility] [place] [facility] [address] [id number] [place] [address] Mar, [facility] [place] [facility] [address] [id number] [place] [address] Mar, [facility] [place] [facility] [address] [id number] [place] [address] Feb, [facility] [place] [facility] [address] [id number] [place] [address] Feb, [facility] [place] [facility] [address] [id number] [place] [address] Jan, [facility] [place] [facility] [address] [id number] [place] [address] Jan, [facility] [place] [facility] [address] [id number] [place] [address] Jan, [facility] [place] [facility] [address] [id number] [place] [address] 28 Jan, 2014 [facility] [place] [facility] [address] [id number] [place] [address] Jan, [facility] [place] [facility] [address] [id number] [place] [address] 15 Jan, 2014 [facility] [place] [facility] [address] [id number] [place] [address] Dec, [facility] [place] [facility] [address] [id number] [place] [address] 19 Dec, 2013 [facility] [place] [facility] [address] [id number] [place] [address] 19 Dec, 2013 [facility] [place] [facility] [address] [id number] [place] [address] 19 Dec, 2013 [facility] [place] [facility] [address] [id number] [place] [address] 18 Dec, 2013 [facility] [place] [facility] [address] [id number] [place] [address] 18 Dec, 2013 [facility] [place] [facility] [address] [id number] [place] [address] 16 Dec, 2013 [facility] [place] [facility] [address] [id number] [place] [address] 16 Dec, 2013 [facility] [place] [facility] [address] [id number] [place] [address] 17 Sep, 2013 [facility] [place] [facility] [address] [id number] [place] [address] 17 Sep, 2013 [facility] [place] [facility] [address] [id number] [place] [address] 15 Jul, 2013 [facility] [place] [facility] [address] [id number] [place] [address] 15 Jul, 2013 [facility] [place] [facility] [address] [id number], [place] [address] 10 Jul, 2013 [facility] [place] [facility] [address] [id number] [place] [address] 10 Jul, 2013 [facility] [place] [facility] [address] [id number] [place] [address] 03 Jul, 2013 [facility] [place] [facility] [address] [id number] [place] [address] 03 Jul, 2013 [facility] [place] [facility] [address] [id number] [place] [address] Jul, [facility] [place] [facility] [address] [id number] [place] [address] Jul, [facility] [place] [facility] [address] [id number] [place] [address] Jun, [facility] [place] [facility] [address] [id number] [place] [address] Jun, [facility] [place] [facility] [address] [id number] [place] [address] May, [facility] [place] [facility] [address] [id number] [place] [address] May, [facility] [place] [facility] [address] [id number] [place] [address] May, [facility] [place] [facility] [address] [id number] [place] [address] May, [facility] [place] [facility] [address] [id number] [place] [address] Apr, [facility] [place] [facility] [address] [id number] [place] [address] Apr, [facility] [place] [facility] [address] [facility] [id number] [place] [address] Mar, [facility] [place] [facility] [address] [id number] [place] [address] Mar, [facility] [place] [facility] [address] [id number] [place] [address] Feb, [facility] [place] [facility] [address] [id number] [place] [address] Feb, [facility] [place] [facility] [address] [facility] [id number] [place] [address] Feb, [facility] [place] [facility] [address] [id number] [place] [address] Feb, [facility] [place] [facility] [address] [id number] [place] [address] Jan, [facility] [place] [facility] [address] [id number] [place] [address] Jan, [facility] [place] [facility] [address] [id number] [place] [address] Jan, [facility] [place] [facility] [address] [id number] [place] [address] Jan, [facility] [address] [id number] [place] [address] Jan, [facility] [place] [facility] [address] [id number] [place] [address] Dec, [facility] [place] [facility] [address] [id number] [place] [address] Dec, [facility] [place] [facility] [address] [id number] [place] [address] Nov, [facility] [place] [facility] [address] [id number] [place] [address] Sep, [facility] [place] [facility] [address] [id number], [place] [address] August, [facility] [place] [facility] [address] [id number] [place] [address] August, [facility] [place] [facility] [address] [id number], [place] [address] Jul, [facility] [place] [facility] [address] [id number] [place] [address] Jul, [facility] [place] [facility] [address] [id number], [place] [address] Jul, [facility] [place] [facility] [address] [id number], [place] [address] Jul, [facility] [place] [facility] [address] [id number], [place] [address] Jul, [facility] [address] [id number] [place] [address] Jul, [facility] [place] [facility] [address] [id number] [place] [address] Jul, [facility] [place] [facility] [address] [facility] [id number] [place] [address] Jun, [facility] [place] [facility] [address] [id number] [place] [address] Jun, [facility] [place] [facility] [address] [id number] [place] [address] May, [facility] [place] [facility] [address] [id number] [place] [address] Apr, [facility] [address] [facility] [id number] [place] [address] Apr, [facility] [place] [facility] [address] [id number] [place] [address] Mar, [facility] [address] [facility] [id number] [place] [address] Mar, [facility] [place] [facility] [address] [facility] [id number] [place] [address] Mar, [facility] [place] [facility] [address] [id number] [place] [address] Feb, [facility] [place] [facility] [address] [id number] [place] [address] Feb, [facility] [place] [facility] [address] [id number] [place] [address] Feb, [facility] [place] [facility] [address] [id number] [place] [address] Feb, [facility] [place] [facility] [address] [facility] [id number] [place] [address] Feb, [facility] [place] [facility] [address] [id number] [place] [address] 19 Feb, 2012 [facility] [place] [facility] [address] [id number] [place] [address] 16 Feb, 2012 [facility] [place] [facility] [address] [id number] [place] [address] 16 Feb, 2012 [facility] [place] [facility] [address] [id number] [place] [address] 14 Feb, 2012 [facility] [place] [facility] [address] [id number] [place] [address] 08 Feb, 2012 [facility] [place] [facility] [address] [id number] [place] [address] 08 Feb, 2012 [facility] [place] [facility] [address] [id number] [place] [address] 27 Dec, 2011 [facility] [place] [facility] [address] [id number] [place] [address] 07 Dec, 2011 [facility] [place] [facility] [address] [id number] [place] [address] 30 Nov, 2011 [facility] [place] [facility] [address] [id number] [place] [address] Nov, [facility] [place] [facility] [address] [facility] [id number] [place] [address] Oct, [facility] [place] [facility] [address] [id number] [place] [address] Oct, [facility] [place] [facility] [address] [id number] [place] [address] 14 Sep, 2011 [facility] [place] [facility] [address] [id number] [place] [address] 28 May, 2011 [facility] [place] [facility] [address] [id number] [place] [address] 15 May, 2011 [facility] [place] [facility] [address] [id number] [place] [address] May, [facility] [place] [facility] [address] [id number] [place] [address] Apr, [facility] [place] [facility] [address] [id number], [place] [address] Mar, [facility] [place] [facility] [address] [facility] [address] [facility] [id number] [place] [address] Mar, [facility] [place] [facility] [address] [id number], [place] [address] Feb, [facility] [place] [facility] [address] [id number] [place] [address] Feb, [facility] [place] [facility] [address] [facility] [address] [facility] [id number], [place] [address] Feb, [facility] [place] [facility] [address] [address] [facility] [id number], [place] [address] Jan, [facility] [place] [facility] [address] [id number], [place] [address] Jan, [facility] [place] [facility] [address] [address] [facility] [id number], [place] [address] Dec, [facility] [place] [facility] [address] [facility] [address] [facility] [id number], [place] [address] Mar, [facility] [place] [facility] [address] [id number], [place] [address] Feb, [facility] [place] [facility] [address] [id number], [place] [address] 10 Feb, 2009 [facility] [place] [facility] [address] [id number], [place] [address] Feb, [facility] [address] [facility] [id number], [place] [address] 20 Jan, 2009 [facility] [address] [facility] [id number], [place] [address] 16 Dec, 2008 [facility] [address] [facility] [id number] [address] Nov, [facility] [address] [facility] [id number] [address] Sep, [facility] [address] [facility] [id number], [place] [address] August, [facility] [address] [facility] [id number], [place] [address] May, [facility] [address] [facility] [id number], [place] [address] Mar, IMMUNIZATIONS No Known Immunizations SOCIAL HISTORY Never Assessed REASON FOR VISIT [facility] [place] VITAL SIGNS MEDICATIONS Unknown [...] History left foot swollen, stepped in [facility] 05/02/17 Hospitalization History [facility] 06/2018
--- OUTSIDE RECORDS SUMMARY | 2018-10-19 22:04 | XMS REPORT ---
Author Author Migration, Doctor Organization [facility] Address Unknown Phone Unavailable Care Team Providers Care Nursing Secretary Name Role Phone Migration, Doctor Unavailable Unavailable PROBLEMS Type Condition ICD9-CM Code HNB29-QI Code Onset Dates Condition Status SNOMED Code Problem Panic disorder with agoraphobia F40.01 Active 99374704 Problem COPD (chronic obstructive pulmonary disease) J44.9 Active 35071103 Problem Bipolar disease, chronic F31.9 Active 69863229 Problem Chronic pain G89.29 Active 20969407 Problem Degenerative joint disease M19.90 Active 480501608 Problem Morbid (severe) obesity due to excess calories E66.01 Active 74357002127645 Problem Body mass index (BMI) of 40.0-44.9 in adult Z68.41 Active 820315883 Problem Xanax use disorder, moderate F13.20 Active 301738246 Problem Opioid use disorder, moderate, dependence F11.20 Active 35041656 Problem Psychosis, unspecified psychosis type F29 Active 88666743 Problem Methamphetamine use disorder, severe, 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 Active 20379429 Problem Lumbago with sciatica, left side M54.42 Active 764621475 Problem Personality disorder F60.9 Active 14037597 Problem Other chronic pain G89.29 Active 99048894 Problem Lumbago with sciatica, right side M54.41 Active 573499111419547 Problem Depressive disorder, not elsewhere classified F32.9 Active 54087162 Problem Right sciatic nerve pain M54.31 Active 07212700 Problem 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 Active 905236388648408 Problem Nocturnal hypoxemia G47.34 Active 481096898 Problem Pre-diabetes R73.03 Active 586971122 Problem Bilateral carpal tunnel syndrome G56.03 Active 97298322 Problem Acquired hypothyroidism E03.9 Active 322088191 Problem Cigarette nicotine dependence without complication F17.210 Active 82855840 Problem Fibrocystic changes of left breast N60.12 Active 81018754 Problem Hypothyroidism (acquired) E03.9 Active 46968773 Problem Mood disorder F39 Active 50074492 Problem Nicotine withdrawal F17.203 Active 38834800 ALLERGIES No Information ENCOUNTERS Encounter Location Date Diagnosis [place] [id number] [place] [address] Sep, [place] [id number] [place] [address] Sep, [place] [address] [address] Sep, [place] [id number] [place] [address] August, High risk medication use Z79.899 ; Methamphetamine use disorder, severe, 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 ; Psychosis, unspecified psychosis type F29 ; Xanax use disorder, moderate F13.20 ; Personality disorder F60.9 ; Opioid use disorder, moderate, dependence F11.20 and Morbid obesity E66.01 [place] [address] [address] 04 Jul, 2018 Closed fracture of one rib of right side with routine healing, subsequent encounter S22.31XD [address] [address] 14 Jun, 2018 Acute pain of right wrist M25.531 [place] [id number] [place] [address] 14 Jun, 2018 High risk medication use Z79.899 ; Methamphetamine use disorder, severe, 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 ; Psychosis, unspecified psychosis type F29 ; Xanax use disorder, moderate F13.20 ; Personality disorder F60.9 ; Opioid use disorder, moderate, dependence F11.20 and Morbid obesity E66.01 [place] [id number] [place] [address] 14 May, 2018 Bilateral carpal tunnel syndrome G56.03 [place] [id number] [place] [address] Apr, [place] [id number] [place] [address] Apr, Bronchitis J40 [place] [address] [address] Apr, Nocturnal hypoxemia G47.34 and Acute pain of right wrist M25.531 [place] [id number] [place] [address] Apr, Bronchitis J40 and Hypothyroidism (acquired) E03.9 [facility] [id number] [place] [address] Mar, BMI 45.0-49.9, adult Z68.42 ; Right-sided chest wall pain R07.89 and Cough R05 [place] [id number] [place] [address] 14 Mar, 2018 [place] [address] [address] 13 Mar, 2018 Methamphetamine use disorder, severe, 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 ; Psychosis, unspecified psychosis type F29 ; Xanax use disorder, moderate F13.20 ; Personality disorder F60.9 ; Opioid use disorder, moderate, dependence F11.20 and BMI 45.0-49.9, adult Z68.42 [place] [id number] [place] [address] Mar, Acquired hypothyroidism E03.9 [place] [id number] [place] [address] 06 Mar, 2018 Bronchitis J40 ; Costochondritis M94.0 ; Hypothyroidism (acquired) E03.9 ; Pre-diabetes R73.03 ; Acquired hypothyroidism E03.9 and BMI 45.0-49.9, adult Z68.42 [place] [id number] [place] [address] Feb, Lumbago with sciatica, right side M54.41 [place] [address] [address] Feb, Acquired hypothyroidism E03.9 [place] [id number] [place] [address] Feb, Liver enzyme elevation R74.8 [place] [id number] [place] [address] Feb, Mood disorder F39 ; Nicotine withdrawal F17.203 ; Liver enzyme elevation R74.8 ; Hypothyroidism (acquired) E03.9 and BMI 45.0-49.9, adult Z68.42 [place] [id number] [place] [address] Jan, Methamphetamine use disorder, severe, 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 ; Psychosis, unspecified psychosis type F29 ; Personality disorder F60.9 ; Opioid use disorder, moderate, dependence F11.20 ; Xanax use disorder, moderate F13.20 and BMI 45.0-49.9, adult Z68.42 [place] [id number] [place] [address] Jan, Liver enzyme elevation R74.8 and Hypothyroidism (acquired) E03.9 [place] [id number] [place] [address] Dec, BMI 40.0-44.9, adult Z68.41 ; Chronic pain G89.29 ; Degenerative joint disease M19.90 and Pre-diabetes R73.03 [place] [id number] [place] [address] Dec, [place] [id number] [place] [address] Dec, Methamphetamine use disorder, severe, 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 ; Psychosis, unspecified psychosis type F29 ; Personality disorder F60.9 ; Opioid use disorder, moderate, dependence F11.20 ; Xanax use disorder, moderate F13.20 and BMI 45.0-49.9, adult Z68.42 [place] [id number] [place] [address] Dec, [place] [id number] [place] [address] Oct, Breast pain N64.4 ; Fibrocystic changes of left breast N60.12 and Bilateral otitis media with effusion H65.93 [facility] [id number] [place] [address] Sep, 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 [place] [id number] [place] [address] Sep, [place] [address] [address] Sep, Methamphetamine use disorder, severe, 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 ; Psychosis, unspecified psychosis type F29 ; Personality disorder F60.9 ; Opioid use disorder, moderate, dependence F11.20 ; Xanax use disorder, moderate F13.20 and BMI 40.0-44.9, adult Z68.41 [place] [id number] [place] [address] Sep, Depressive disorder, not elsewhere classified F32.9 and Psychosis, unspecified psychosis type F29 [place] [id number] [place] [address] August, [place] [id number] [place] [address] August, Depressive disorder, not elsewhere classified F32.9 and Psychosis, unspecified psychosis type F29 [place] [id number] [place] [address] August, [place] [address] [address] August, Lumbago with sciatica, right side M54.41 and Other chronic pain G89.29 [facility] [id number] [place] [address] Jul, Right sciatic nerve pain M54.31 [place] [id number] [place] [address] Jul, Acquired hypothyroidism E03.9 [place] [id number] [place] [address] Jul, Depressive disorder, not elsewhere classified F32.9 and Psychosis, unspecified psychosis type F29 [place] [id number] [place] [address] Jul, Acquired hypothyroidism E03.9 ; Lumbago with sciatica, right side M54.41 and Lumbar radiculopathy, acute M54.16 [place] [id number] [place] [address] Jul, Methamphetamine use disorder, severe, 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 ; Psychosis, unspecified psychosis type F29 ; Personality disorder F60.9 ; Opioid use disorder, moderate, dependence F11.20 ; Xanax use disorder, moderate F13.20 and BMI 40.0-44.9, adult Z68.41 [place] [id number] [place] [address] Jun, Methamphetamine use disorder, severe, 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 ; Psychosis, unspecified psychosis type F29 ; Personality disorder F60.9 ; Opioid use disorder, moderate, dependence F11.20 and Xanax use disorder, moderate F13.20 [place] [address] [place] [address] Jun, Depressive disorder, not elsewhere classified F32.9 and Psychosis, unspecified psychosis type F29 [place] [id number] [place] [address] Jun, Lumbar radiculopathy, acute M54.16 [place] [id number] [place] [address] Jun, Lumbar radiculopathy, acute M54.16 ; Strain of abdominal wall, initial encounter S39.011A and BMI 40.0-44.9, adult Z68.41 [place] [id number] [place] [address] Jun, [place] [address] [address] May, [place] [address] [address] May, Methamphetamine use disorder, severe, 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 ; Psychosis, unspecified psychosis type F29 ; Personality disorder F60.9 ; Opioid use disorder, moderate, dependence F11.20 and Xanax use disorder, moderate F13.20 [place] [address] [address] May, [address] [address] May, [place] [address] [address] May, Lumbago with sciatica, left side M54.42 ; Lumbago with sciatica, right side M54.41 ; Other chronic pain G89.29 ; Weight gain R63.5 ; Acquired hypothyroidism E03.9 and BMI 40.0-44.9, adult Z68.41 [place] [id number] [place] [address] Apr, Cigarette nicotine dependence without complication F17.210 [place] [id number] [place] [address] Apr, Acute bilateral low back pain without sciatica M54.[address] [address] Apr, Methamphetamine use disorder, severe, 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 ; Psychosis, unspecified psychosis type F29 ; Personality disorder F60.9 ; Opioid use disorder, moderate, dependence F11.20 and Xanax use disorder, moderate F13.20 [facility] [address] [address] 12 Apr, 2017 Wheezing R06.2 and Bronchitis J40 [place] [address] [place] [id number] 02 Apr, 2017 Bronchitis J40 ; Cigarette nicotine dependence without complication F17.210 and Bipolar disease, chronic F31.9 [place] [address] [address] Mar, Acquired hypothyroidism E03.9 [place] [address] [address] Mar, Acquired hypothyroidism E03.9 [place] [address] [address] Mar, Orthostatic hypotension I95.1 and Non-intractable vomiting with nausea, unspecified vomiting type R11.[address] [address] 14 Mar, 2017 Strain of lumbar region, initial encounter S39.012A [address] [address] Mar, [facility] [address] [address] 07 Mar, 2017 Bronchitis J40 [place] [address] [address] 05 Mar, 2017 Degenerative joint disease M19.90 ; Elevated LFTs R79.89 ; Adenopathy R59.1 ; Drug use F19.90 ; Pre-diabetes R73.03 and COPD (chronic obstructive pulmonary disease) J44.9 [facility] [address] [address] 30 Feb, 2017 Left hand pain M79.642 and Contusion of left hand, initial encounter S60.222A [address] [address] Feb, Body aches R52 and Flu-like symptoms R68.89 [place] [id number] [place] [address] Jan, [place] [id number] [place] [address] Jan, Bipolar disease, chronic F31.9 ; Acquired hypothyroidism E03.9 and Encounter for immunization Z23 [facility] [address] [place] [id number] [place] [address] 05 Dec, 2016 Crushing injury of left wrist and hand, initial encounter S67.42XA [address] [address] Sep, [place] [address] [address] Sep, Bipolar disease, chronic F31.9 ; Panic disorder with agoraphobia F40.01 and Proteinuria, unspecified type R80.9 [place] [id number] [place] [address] August, [address] [address] August, Degenerative joint disease M19.90 ; Left-sided chest wall pain R07.89 ; Bipolar disease, chronic F31.9 ; Type 2 diabetes mellitus without complication, without long-term current use of insulin E11.9 ; Acquired hypothyroidism E03.9 and Acute cystitis without hematuria N30.00 [place] [id number] [place] [address] Mar, [place] [address] [address] Feb, [facility] [address] [place] [id number] [place] [address] Feb, Right hand pain M79.641 [facility] [address] [place] [address] Feb, Bronchitis J40 ; Acute non-recurrent pansinusitis J01.40 and Seasonal allergic rhinitis due to other allergic trigger J30.89 [facility] [address] [place] [address] Dec, [facility] [address] [place] [address] Mar, Left-sided chest wall pain R07.89 and Chronic pain G89.29 [facility] [id number] [place] [address] Jul, [facility] [id number] [place] [address] Jul, [facility] [id number] [place] [address] May, [facility] [id number] [place] [address] May, [facility] [id number] [place] [address] Apr, [facility] [id number] [place] [address] Apr, [facility] [id number] [place] [address] Mar, [facility] [id number] [place] [address] Mar, [facility] [id number] [place] [address] Feb, [facility] [id number] [place] [address] Feb, [facility] [id number] [place] [address] Jan, [facility] [id number] [place] [address] 28 Jan, 2014 [facility] [place] [facility] [address] [id number] [place] [address] 28 Jan, 2014 [facility] [place] [facility] [address] [id number] [place] [address] 28 Jan, 2014 [facility] [place] [facility] [address] [id number] [place] [address] 15 Jan, 2014 [facility] [place] [facility] [address] [id number] [place] [address] 15 Jan, 2014 [facility] [place] [facility] [address] [id number] [place] [address] 19 Dec, 2013 [facility] [place] [facility] [address] [id number] [place] [address] 19 Dec, 2013 [facility] [place] [facility] [address] [id number] [place] [address] 19 Dec, 2013 [facility] [place] [facility] [address] [id number] [place] [address] 19 Dec, 2013 [facility] [place] [facility] [address] [id number] [place] [address] 18 Dec, 2013 [facility] [place] [facility] [address] [id number] [place] [address] 18 Dec, 2013 [facility] [place] [facility] [address] [id number] [place] [address] 16 Dec, 2013 [facility] [place] [facility] [address] [id number] [address] 16 Dec, 2013 [facility] [place] [facility] [address] [id number] [place] [address] 17 Sep, 2013 [facility] [place] [facility] [address] [id number] [place] [address] 17 Sep, 2013 [facility] [place] [facility] [address] [id number] [place] [address] 15 Jul, 2013 [facility] [place] [facility] [address] [id number] [place] [address] 15 Jul, 2013 [facility] [place] [facility] [address] [id number] [place] [address] Jul, [facility] [place] [facility] [address] [id number] [place] [address] Jul, [facility] [place] [facility] [address] [id number] [place] [address] Jul, [facility] [place] [facility] [address] [id number] [place] [address] Jul, [facility] [place] [facility] [address] [id number] [place] [address] Jul, [facility] [place] [facility] [address] [id number] [place] [address] Jul, [facility] [place] [facility] [address] [id number] [place] [address] Jun, [facility] [place] [facility] [address] [id number] [place] [address] Jun, [facility] [place] [facility] [address] [id number] [place] [address] May, [facility] [place] [facility] [address] [id number] [place] [address] May, [facility] [place] [facility] [address] [id number] [place] [address] May, [facility] [place] [facility] [address] [id number] [place] [address] May, [facility] [place] [facility] [address] [id number] [place] [address] Apr, [facility] [place] [facility] [address] [id number] [place] [address] Apr, [facility] [place] [facility] [address] [id number] [place] [address] Mar, [facility] [place] [facility] [address] [id number] [place] [address] Mar, [facility] [place] [facility] [address] [id number] [place] [address] Feb, [facility] [place] [facility] [address] [id number] [place] [address] Feb, [facility] [place] [facility] [address] [id number] [place] [address] Feb, [facility] [place] [facility] [address] [id number] [place] [address] Feb, [facility] [place] [facility] [address] [id number] [place] [address] Jan, [facility] [place] [facility] [address] [id number] [place] [address] Jan, [facility] [place] [facility] [address] [id number], [place] [address] Jan, [facility] [place] [facility] [address] [id number] [place] [address] Jan, [facility] [place] [facility] [address] [id number][place] [address] Jan, [facility] [place] [facility] [address] [id number], [place] [address] Dec, [facility] [place] [facility] [address] [id number], [place] [address] Dec, [facility] [place] [facility] [address] [id number], [place] [address] Nov, [facility] [place] [facility] [address] [id number], [place] [address] Sep, [facility] [place] [facility] [address] [id number], [place] [address] August, [facility] [place] [facility] [address] [id number] [place] [address] August, [facility] [address] [id number] [place] [address] Jul, [facility] [address] [id number] [place] [address] Jul, [facility] [address] [id number] [place] [address] Jul, [facility] [address] [id number] [place] [address] Jul, [facility] [address] [id number] [place] [address] Jul, [facility] [address] [id number] [place] [address] Jul, [facility] [address] [id number] [place] [address] Jul, [facility] [address] [id number] [place] [address] Jun, [facility] [address] [id number] [place] [address] Jun, [facility] [address] [id number] [place] [address] May, [facility] [address] [id number] [place] [address] Apr, [facility] [address] [id number] [place] [address] Apr, [facility] [place] [facility] [address] [id number] [place] [address] Mar, [facility] [place] [facility] [address] [id number] [place] [address] Mar, [facility] [address] [id number] [place] [address] Mar, [facility] [place] [facility] [address] [id number] [place] [address] Feb, [facility] [place] [facility] [address] [id number] [place] [address] Feb, [facility] [place] [facility] [address] [id number] [place] [address] Feb, [facility] [place] [facility] [address] [id number] [place] [address] Feb, [facility] [place] [facility] [address] [id number] [place] [address] Feb, [facility] [place] [facility] [address] [id number] [place] [address] Feb, [facility] [place] [facility] [address] [id number] [place] [address] Feb, [facility] [place] [facility] [address] [id number] [place] [address] 16 Feb, 2012 [facility] [place] [facility] [address] [id number] [place] [address] 14 Feb, 2012 [facility] [place] [facility] [address] [id number] [place] [address] Feb, [facility] [place] [facility] [address] [id number] [place] [address] Feb, [facility] [place] [facility] [address] [id number] [place] [address] 27 Dec, 2011 [facility] [place] [facility] [address] [id number] [place] [address] 07 Dec, 2011 [facility] [place] [facility] [address] [id number] [place] [address] 30 Nov, 2011 [facility] [place] [facility] [address] [id number] [place] [address] Nov, [facility] [place] [facility] [address] [id number], [place] [address] Oct, [facility] [address] [id number] [place] [address] Oct, [facility] [place] [facility] [address] [id number] [place] [address] Sep, [facility] [place] [facility] [address] [id number] [place] [address] May, [facility] [place] [facility] [address] [id number] [place] [address] May, [facility] [address] [id number] [place] [address] May, [facility] [place] [facility] [address] [id number] [place] [address] Apr, [facility] [address] [id number], [place] [address] Mar, [facility] [place] [facility] [address] [id number] [place] [address] Mar, [facility] [place] [facility] [address] [id number] [place] [address] Feb, [facility] [place] [facility] [address] [id number] [place] [address] Feb, [facility] [place] [facility] [address] [id number], [place] [address] Feb, [facility] [place] [facility] [address] [id number], [place] [address] Jan, [facility] [place] [facility] [address] [id number] [place] [address] Jan, [facility] [place] [facility] [address] [id number] [place] [address] Dec, [facility] [place] [facility] [address] [id number] [address] Mar, [facility] [place] [facility] [address] [id number] [address] Feb, [facility] [id number] [address] Feb, [facility] [id number] [address] Feb, [facility] [id number] [address] Jan, [facility] [id number] [address] 16 Dec, 2008 [facility] [id number] [place] [id number] Nov, [facility] [id number] [address] Sep, [facility] [id number] [address] August, [facility] [id number] [address] May, [facility] [id number] [address] Mar, IMMUNIZATIONS No Known Immunizations SOCIAL HISTORY Never Assessed REASON FOR VISIT [facility] [place] PLAN OF CARE VITAL SIGNS MEDICATIONS Unknown [...] Hospitalization History left foot swollen, stepped in [facility] 05/02/17 Hospitalization History [facility] 06/2018
--- NOTE | 2018-10-19 22:05 | ED Fall/Injury ---
General Stated Complaint: PAIN IN RIB CAGE AND HI Source: patient Exam Limitations: no limitations History of Present Illness Date Seen by Provider: Oct 19, 2018 Time Seen by Provider: 22:02 Initial Comments This 37-year-old white female presents after she fell on a wet floor earlier today and sustained trauma to her right lower ribs. Patient also sustained injury to her right little toe on the fall. Fortunately she denies loss of consciousness paresthesias or weakness in extremities, localized pain to the neck or back, nausea or vomiting, hemoptysis or shortness of breath, palpitations, abdominal pain, pelvic pain, or injuries to the hips or knees. Allergies and Home Medications Allergies Coded Allergies: Penicillins (Unverified Allergy, Mild, 10/19/18) aspirin (Verified Allergy, Unknown, 10/19/18) cephalexin (Verified Allergy, Unknown, 10/19/18) folic acid (Verified Allergy, Unknown, 06/21/18) iron (Verified Allergy, Unknown, 06/21/18) penicillin G (Verified Allergy, Unknown, 06/21/18) tramadol (Verified Allergy, Unknown, 10/19/18) Home Medications Bacitracin 3.5 Gm Oint...g., 0.1 GM OP BID Prescribed by: CRYSTAL BOBBY on 12/24/17 0305 Benzonatate 100 Mg Capsule, 200 MG PO TID PRN for COUGH Prescribed by: MINGO WALTON on 06/21/182141 Hydrocodone/Acetaminophen 1 Each Tablet, 1-2 TAB PO Q4-6HR PRN for PAIN-MODERATE TO SEVERE Prescribed by: MINGO WALTON on 06/21/18 214 Ibuprofen 800 Mg Tablet, 1 TAB PO QID PRN FOR PAIN Prescribed by: CIELO MCINTOSH on 11/18/08 220 Methylprednisolone 4 Mg/Dose-Pack Tab.ds.pk, 0 PO UD FOR BREATHING Prescribed by: CIELO MCINTOSH on 01/28/092137 Metoclopramide Hcl 10 Mg Tablet, 1 EACH PO QID PRN FOR NAUSEA AND STOMACH DISCOMFORT Prescribed by: CIELO MCINTOSH on 01/20/09 2100 Naproxen 500 Mg Tablet, 1 EACH PO BID Prescribed by: JAZ QIUROZ on 02/11/09 1737 Promethazine Hcl 25 Mg Tablet, 1 TAB PO QID Prescribed by: THOMAS ALLEN on 12/25/08 180 Sulfamethoxazole/Trimethoprim 1 Each Tablet, 1 EACH PO BID Prescribed by: CRYSTAL BOBBY on 12/24/17 0305 Patient Home Medication List Home Medication List Reviewed: Yes Review of Systems Review of Systems Constitutional: no symptoms reported Eyes: No Symptoms Reported Ears, Nose, Mouth, Throat: no symptoms reported Respiratory: see HPI, other (pain with taking a deep breath in the right chest wall.) Cardiovascular: see HPI, other (right chest wall pain) Gastrointestinal: No abdominal pain, No nausea, No vomiting Genitourinary: no symptoms reported Musculoskeletal: see HPI, joint pain (to the right little toe.), other (right lower rib pain) Skin: no symptoms reported Psychiatric/Neurological: No Symptoms Reported Past [id number] Hx Past Med/Social Hx: Reviewed Nursing Past Med/Soc Hx Patient Social History Type Used: Cigarettes 2nd Hand Smoke Exposure: Yes Recent Foreign Travel: No Contact w/Someone Who Travel: No Recent Hopitalizations: Yes Past Medical History Surgeries: Yes (HYST,BENI) Respiratory: No Cardiac: No Neurological: Yes Headaches /Migraines Reproductive Disorders: Yes (12 MISCARRIAGES) 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 oz. 116.855142uv; BMI Method:Stated General Appearance: WD/WN, mild distress HEENT: normal ENT inspection Neck: non-tender, full range of motion Cardiovascular: regular rate, rhythm, no murmur Respiratory: lungs clear, normal breath sounds, no respiratory distress, other (tenderness palpation of the lower right ribs in the posterior axillary line.) Gastrointestinal: normal bowel sounds, non tender, soft Back: normal inspection, no CVA tenderness, no vertebral tenderness Extremities: normal range of motion, non-tender, normal inspection, other (there is tenderness and swelling to the right little toe.) Neurologic/Psychiatric: no motor/sensory deficits, alert, normal mood/affect, oriented x 3 Skin: normal color, warm/dry Progress/Results/Core Measures Results/Orders My Orders Orders - FLACO ESPINOZA MD Ribs 2-3 View Right (10/19/18 22:23) Toe(S) (10/19/18 22:23) Hydrocodone/Apap 5/325 Tablet (Lortab 5 (10/19/18 22:30) Medications Given in ED Current Medications Medications Dose Ordered Sig/Cassandra Route Start Time Stop Time Status Last Admin Dose Admin Acetaminophen/ Hydrocodone Bitart 2 tab ONCE ONCE PO 10/19/18 22:30 10/19/18 22:31 DC 10/19/18 22:28 2 TAB Vital Signs/I&O 10/19/18 21:55 Temp 97.7 Pulse 88 Resp 20 B/P (MAP) 155/91 (112) Pulse Ox 95 O2 Delivery Room Air Progress Progress Note : Time: 23:15 Progress Note X-ray of the patient's right ribs and right little toe failed to demonstrate evidence of fracture dislocation or pneumohemothorax. Patient received two 5 mg Vicodin orally for the pain. I informed the patient of the radiographic findings. I prescribed Vicodin for her pain for the next 48 hours. I asked that she call or return if any problems or questions and to follow-up with her career services director on Monday. Departure Impression Primary Impression: Chest injury Qualified Codes: S29.9XXA - Unspecified injury of thorax, initial encounter Additional Impression: Contusion, toe Qualified Codes: S90.121A - Contusion of right lesser toe(s) without damage to nail, initial encounter Disposition: HOME, SELF-CARE Condition: Improved Departure-Patient Inst. Decision time for Depature: 23:17 Referrals: HUSSAIN MAE MD (PCP) Primary Care Physician Patient Instructions: Bruised Rib (DC) Add. Discharge Instructions: Vicodin for pain. Follow-up with your career services director on Monday for recheck. Return if any problems or questions. Scripts Hydrocodone/Acetaminophen (Vicodin 5-300 mg Tablet) 1 Each Tablet 1-2 EACH PO Q6H PRN for PAIN-MODERATE MDD 10 for 7 Days, #20 TAB Prov: FLACO ESPINOZA MD 10/19/18 FLACO ESPINOZA MD Oct 19, 2018 22:05
--- OUTSIDE RECORDS SUMMARY | 2018-10-19 22:05 | XMS REPORT ---
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 Name Role Phone Migration, Doctor Unavailable Unavailable PROBLEMS Type Condition ICD9-CM Code YPE95-MN Code Onset Dates Condition Status SNOMED Code Problem Panic disorder with agoraphobia F40.01 Active 08251076 Problem COPD (chronic obstructive pulmonary disease) J44.9 Active 65713760 Problem Bipolar disease, chronic F31.9 Active 75572611 Problem Chronic pain G89.29 Active 13970180 Problem Degenerative joint disease M19.90 Active 315596470 Problem Morbid (severe) obesity due to excess calories E66.01 Active 81104870000858 Problem Body mass index (BMI) of 40.0-44.9 in adult Z68.41 Active 775240855 Problem Xanax use disorder, moderate F13.20 Active 722655680 Problem Opioid use disorder, moderate, dependence F11.20 Active 70235922 Problem Psychosis, unspecified psychosis type F29 Active 73283641 Problem Methamphetamine use disorder, severe, 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 Active 02694985 Problem Lumbago with sciatica, left side M54.42 Active 771640699 Problem Personality disorder F60.9 Active 04420626 Problem Other chronic pain G89.29 Active 79602045 Problem Lumbago with sciatica, right side M54.41 Active 151562123124434 Problem Depressive disorder, not elsewhere classified F32.9 Active 39281463 Problem Right sciatic nerve pain M54.31 Active 56407445 Problem 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 Active 923381915919084 Problem Nocturnal hypoxemia G47.34 Active 473579929 Problem Pre-diabetes R73.03 Active 829388542 Problem Bilateral carpal tunnel syndrome G56.03 Active 64537861 Problem Acquired hypothyroidism E03.9 Active 538982774 Problem Cigarette nicotine dependence without complication F17.210 Active 61343924 Problem Fibrocystic changes of left breast N60.12 Active 41924833 Problem Hypothyroidism (acquired) E03.9 Active 94156155 Problem Mood disorder F39 Active 27279636 Problem Nicotine withdrawal F17.203 Active 63328286 ALLERGIES No Information ENCOUNTERS Encounter Location Date Diagnosis [place] [address] [address] August, [place] [address] [address] Jul, Closed fracture of one rib of right side with routine healing, subsequent encounter S22.31XD [place] [address] [address] 14 Jun, 2018 Acute pain of right wrist M25.531 [place] [address] [address] 14 Jun, 2018 High risk medication use Z79.899 ; Methamphetamine use disorder, severe, 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 ; Psychosis, unspecified psychosis type F29 ; Xanax use disorder, moderate F13.20 ; Personality disorder F60.9 ; Opioid use disorder, moderate, dependence F11.20 and Morbid obesity E66.01 [place] [address] [address] 14 May, 2018 Bilateral carpal tunnel syndrome G56.03 [place] [address] [address] Apr, [place] [address] [address] Apr, Bronchitis J40 [place] [address] [address] Apr, Nocturnal hypoxemia G47.34 and Acute pain of right wrist M25.531 [place] [address] [address] Apr, Bronchitis J40 and Hypothyroidism (acquired) E03.9 [facility] [address] [address] Mar, BMI 45.0-49.9, adult Z68.42 ; Right-sided chest wall pain R07.89 and Cough R05 [place] [address] [place] [id number] [place] [address] 14 Mar, 2018 [place] [address] [address] 13 Mar, 2018 Methamphetamine use disorder, severe, 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 ; Psychosis, unspecified psychosis type F29 ; Xanax use disorder, moderate F13.20 ; Personality disorder F60.9 ; Opioid use disorder, moderate, dependence F11.20 and BMI 45.0-49.9, adult Z68.42 [place] [address] [address] 07 Mar, 2018 Acquired hypothyroidism E03.9 [place] [address] [address] 06 Mar, 2018 Bronchitis J40 ; Costochondritis M94.0 ; Hypothyroidism (acquired) E03.9 ; Pre-diabetes R73.03 ; Acquired hypothyroidism E03.9 and BMI 45.0-49.9, adult Z68.42 [place] [address] [address] 12 Feb, 2018 Lumbago with sciatica, right side M54.41 [place] [address] [address] Feb, Acquired hypothyroidism E03.9 [place] [address] [address] Feb, Liver enzyme elevation R74.8 [place] [address] [place] [id number] [place] [address] 09 Feb, 2018 Mood disorder F39 ; Nicotine withdrawal F17.203 ; Liver enzyme elevation R74.8 ; Hypothyroidism (acquired) E03.9 and BMI 45.0-49.9, adult Z68.42 [place] [address] [address] Jan, Methamphetamine use disorder, severe, 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 ; Psychosis, unspecified psychosis type F29 ; Personality disorder F60.9 ; Opioid use disorder, moderate, dependence F11.20 ; Xanax use disorder, moderate F13.20 and BMI 45.0-49.9, adult Z68.42 [place] [address] [place] [id number] [place] [address] Jan, Liver enzyme elevation R74.8 and Hypothyroidism (acquired) E03.9 [place] [address] [address] 27 Dec, 2017 BMI 40.0-44.9, adult Z68.41 ; Chronic pain G89.29 ; Degenerative joint disease M19.90 and Pre-diabetes R73.03 [place] [address] [address] Dec, [place] [address] [address] Dec, Methamphetamine use disorder, severe, 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 ; Psychosis, unspecified psychosis type F29 ; Personality disorder F60.9 ; Opioid use disorder, moderate, dependence F11.20 ; Xanax use disorder, moderate F13.20 and BMI 45.0-49.9, adult Z68.42 [place] [address] [address] Dec, [place] [address] [address] Oct, Breast pain N64.4 ; Fibrocystic changes of left breast N60.12 and Bilateral otitis media with effusion H65.93 [facility] [address] [address] Sep, 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 [place] [address] [address] Sep, [place] [address] [address] Sep, Methamphetamine use disorder, severe, 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 ; Psychosis, unspecified psychosis type F29 ; Personality disorder F60.9 ; Opioid use disorder, moderate, dependence F11.20 ; Xanax use disorder, moderate F13.20 and BMI 40.0-44.9, adult Z68.41 [place] [address] [place] [id number] [place] [address] Sep, Depressive disorder, not elsewhere classified F32.9 and Psychosis, unspecified psychosis type F29 [place] [address] [address] August, [place] [address] [address] August, Depressive disorder, not elsewhere classified F32.9 and Psychosis, unspecified psychosis type F29 [place] [address] [address] August, [place] [address] [place] [id number] [place] [address] August, Lumbago with sciatica, right side M54.41 and Other chronic pain G89.29 [facility] [address] [place] [id number] [place] [address] Jul, Right sciatic nerve pain M54.31 [place] [address] [place] [id number] [place] [address] Jul, Acquired hypothyroidism E03.9 [facility] [place] [address] [place] [id number] [place] [address] Jul, Depressive disorder, not elsewhere classified F32.9 and Psychosis, unspecified psychosis type F29 [place] [address] [place] [id number] [place] [address] Jul, Acquired hypothyroidism E03.9 ; Lumbago with sciatica, right side M54.41 and Lumbar radiculopathy, acute M54.16 [place] [id number] [place] [address] Jul, Methamphetamine use disorder, severe, 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 ; Psychosis, unspecified psychosis type F29 ; Personality disorder F60.9 ; Opioid use disorder, moderate, dependence F11.20 ; Xanax use disorder, moderate F13.20 and BMI 40.0-44.9, adult Z68.41 [place] [address] [place] [id number] [place] [address] Jun, Methamphetamine use disorder, severe, 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 ; Psychosis, unspecified psychosis type F29 ; Personality disorder F60.9 ; Opioid use disorder, moderate, dependence F11.20 and Xanax use disorder, moderate F13.20 [place] [id number] [place] [address] Jun, Depressive disorder, not elsewhere classified F32.9 and Psychosis, unspecified psychosis type F29 [place] [id number] [place] [address] Jun, Lumbar radiculopathy, acute M54.[address] [address] Jun, Lumbar radiculopathy, acute M54.16 ; Strain of abdominal wall, initial encounter S39.011A and BMI 40.0-44.9, adult Z68.41 [place] [id number] [place] [address] Jun, [place] [address] [place] [id number] [place] [address] May, [address] [address] May, Methamphetamine use disorder, severe, 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 ; Psychosis, unspecified psychosis type F29 ; Personality disorder F60.9 ; Opioid use disorder, moderate, dependence F11.20 and Xanax use disorder, moderate F13.20 [place] [address] [place] [id number] [place] [address] May, [place] [address] [address] May, [place] [address] [place] [id number] [place] [address] May, Lumbago with sciatica, left side M54.42 ; Lumbago with sciatica, right side M54.41 ; Other chronic pain G89.29 ; Weight gain R63.5 ; Acquired hypothyroidism E03.9 and BMI 40.0-44.9, adult Z68.41 [place] [address] [address] Apr, Cigarette nicotine dependence without complication F17.210 [place] [address] [address] Apr, Acute bilateral low back pain without sciatica M54.5 [place] [address] [place] [id number] [place] [address] Apr, Methamphetamine use disorder, severe, 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 ; Psychosis, unspecified psychosis type F29 ; Personality disorder F60.9 ; Opioid use disorder, moderate, dependence F11.20 and Xanax use disorder, moderate F13.20 [facility] [address] [place] [id number] [place] [address] Apr, Wheezing R06.2 and Bronchitis J40 [place] [address] [place] [id number] [place] [address] Apr, Bronchitis J40 ; Cigarette nicotine dependence without complication F17.210 and Bipolar disease, chronic F31.9 [place] [address] [place] [id number] [place] [address] Mar, Acquired hypothyroidism E03.9 [place] [address] [place] [id number] [place] [address] Mar, Acquired hypothyroidism E03.9 [place] [id number] [place] [address] Mar, Orthostatic hypotension I95.1 and Non-intractable vomiting with nausea, unspecified vomiting type R11.[address] [place] [address] 14 Mar, 2017 Strain of lumbar region, initial encounter S39.012A [address] [address] Mar, [facility] [address] [place] [address] Mar, Bronchitis J40 [place] [id number] [place] [address] 05 Mar, 2017 Degenerative joint disease M19.90 ; Elevated LFTs R79.89 ; Adenopathy R59.1 ; Drug use F19.90 ; Pre-diabetes R73.03 and COPD (chronic obstructive pulmonary disease) J44.9 [facility] [address] [place] [id number] [place] [address] 30 Feb, 2017 Left hand pain M79.642 and Contusion of left hand, initial encounter S60.222A [place] [id number] [place] [address] Feb, Body aches R52 and Flu-like symptoms R68.89 [place] [address] [place] [id number] [place] [address] Jan, [place] [id number] [place] [address] Jan, Bipolar disease, chronic F31.9 ; Acquired hypothyroidism E03.9 and Encounter for immunization Z23 [facility] [address] [place] [id number] [place] [address] 05 Dec, 2016 Crushing injury of left wrist and hand, initial encounter S67.42XA [place] [id number] [place] [address] Sep, [address] [address] Sep, Bipolar disease, chronic F31.9 ; Panic disorder with agoraphobia F40.01 and Proteinuria, unspecified type R80.[address] [address] August, [place] [address] [address] August, Degenerative joint disease M19.90 ; Left-sided chest wall pain R07.89 ; Bipolar disease, chronic F31.9 ; Type 2 diabetes mellitus without complication, without long-term current use of insulin E11.9 ; Acquired hypothyroidism E03.9 and Acute cystitis without hematuria N30.[address] [address] Mar, [place] [address] [address] Feb, [facility] [address] [address] Feb, Right hand pain M79.641 [facility] [place] [id number] [place] [address] Feb, Bronchitis J40 ; Acute non-recurrent pansinusitis J01.40 and Seasonal allergic rhinitis due to other allergic trigger J30.89 [place] [id number] [place] [address] Dec, [facility] [address] [address] Mar, Left-sided chest wall pain R07.89 and Chronic pain G89.29 [place] [id number] [place] [address] Jul, [address] [place] [address] Jul, [facility] [place] [facility] [address] [id number] [place] [address] May, [facility] [place] [facility] [address] [id number] [place] [address] May, [facility] [place] [facility] [address] [id number] [place] [address] Apr, [facility] [place] [facility] [address] [id number] [place] [address] Apr, [facility] [place] [facility] [address] [id number] [place] [address] Mar, [facility] [place] [facility] [address] [id number] [place] [address] Mar, [facility] [place] [facility] [address] [id number] [place] [address] Feb, [facility] [place] [facility] [address] [id number] [place] [address] Feb, [facility] [place] [facility] [address] [id number] [place] [address] Jan, [facility] [place] [facility] [address] [id number] [place] [address] Jan, [facility] [place] [facility] [address] [id number] [place] [address] Jan, [facility] [place] [facility] [address] [id number] [place] [address] 28 Jan, 2014 [facility] [place] [facility] [address] [id number] [place] [address] Jan, [facility] [place] [facility] [address] [id number] [place] [address] 15 Jan, 2014 [facility] [place] [facility] [address] [id number] [place] [address] Dec, [facility] [place] [facility] [address] [id number] [place] [address] 19 Dec, 2013 [facility] [place] [facility] [address] [id number] [place] [address] 19 Dec, 2013 [facility] [place] [facility] [address] [id number] [place] [address] 19 Dec, 2013 [facility] [place] [facility] [address] [id number] [place] [address] 18 Dec, 2013 [facility] [place] [facility] [address] [id number] [place] [address] 18 Dec, 2013 [facility] [place] [facility] [address] [id number] [place] [address] 16 Dec, 2013 [facility] [place] [facility] [address] [id number] [place] [address] 16 Dec, 2013 [facility] [place] [facility] [address] [id number] [place] [address] 17 Sep, 2013 [facility] [place] [facility] [address] [id number] [place] [address] 17 Sep, 2013 [facility] [place] [facility] [address] [id number] [place] [address] 15 Jul, 2013 [facility] [place] [facility] [address] [id number] [place] [address] 15 Jul, 2013 [facility] [place] [facility] [address] [id number] [address] 10 Jul, 2013 [facility] [place] [facility] [address] [id number] [place] [address] 10 Jul, 2013 [facility] [place] [facility] [address] [id number] [place] [address] 03 Jul, 2013 [facility] [place] [facility] [address] [id number] [place] [address] 03 Jul, 2013 [facility] [place] [facility] [address] [id number] [place] [address] Jul, [facility] [place] [facility] [address] [id number] [place] [address] Jul, [facility] [place] [facility] [address] [id number] [place] [address] Jun, [facility] [place] [facility] [address] [id number] [place] [address] Jun, [facility] [place] [facility] [address] [id number] [place] [address] May, [facility] [place] [facility] [address] [id number] [place] [address] May, [facility] [place] [facility] [address] [id number] [place] [address] May, [facility] [place] [facility] [address] [id number] [place] [address] May, [facility] [place] [facility] [address] [id number] [place] [address] Apr, [facility] [place] [facility] [address] [id number] [place] [address] Apr, [facility] [place] [facility] [address] [facility] [id number] [place] [address] Mar, [facility] [place] [facility] [address] [id number] [place] [address] Mar, [facility] [place] [facility] [address] [id number] [place] [address] Feb, [facility] [place] [facility] [address] [id number] [place] [address] Feb, [facility] [place] [facility] [address] [facility] [id number] [place] [address] Feb, [facility] [place] [facility] [address] [id number] [place] [address] Feb, [facility] [place] [facility] [address] [id number] [place] [address] Jan, [facility] [place] [facility] [address] [id number] [place] [address] Jan, [facility] [place] [facility] [address] [id number] [place] [address] Jan, [facility] [place] [facility] [address] [id number] [place] [address] Jan, [facility] [address] [id number] [place] [address] Jan, [facility] [place] [facility] [address] [id number] [place] [address] Dec, [facility] [place] [facility] [address] [id number] [place] [address] Dec, [facility] [place] [facility] [address] [id number] [place] [address] Nov, [facility] [place] [facility] [address] [id number] [place] [address] Sep, [facility] [place] [facility] [address] [id number] [address] August, [facility] [place] [facility] [address] [id number] [place] [address] August, [facility] [place] [facility] [address] [id number], [place] [address] Jul, [facility] [place] [facility] [address] [id number] [place] [address] Jul, [facility] [place] [facility] [address] [id number], [place] [address] Jul, [facility] [place] [facility] [address] [id number], [place] [address] Jul, [facility] [place] [facility] [address] [id number] [address] Jul, [facility] [address] [id number] [place] [address] Jul, [facility] [place] [facility] [address] [id number] [place] [address] Jul, [facility] [place] [facility] [address] [facility] [id number] [place] [address] Jun, [facility] [place] [facility] [address] [id number] [place] [address] Jun, [facility] [place] [facility] [address] [id number] [place] [address] May, [facility] [place] [facility] [address] [id number] [place] [address] Apr, [facility] [address] [facility] [id number] [place] [address] Apr, [facility] [place] [facility] [address] [id number] [place] [address] Mar, [facility] [address] [facility] [id number] [place] [address] Mar, [facility] [place] [facility] [address] [facility] [id number] [place] [address] Mar, [facility] [place] [facility] [address] [id number] [place] [address] Feb, [facility] [place] [facility] [address] [id number] [place] [address] Feb, [facility] [place] [facility] [address] [id number] [place] [address] Feb, [facility] [place] [facility] [address] [id number] [place] [address] Feb, [facility] [place] [facility] [address] [facility] [id number] [place] [address] Feb, [facility] [place] [facility] [address] [id number] [place] [address] 19 Feb, 2012 [facility] [place] [facility] [address] [id number] [place] [address] 16 Feb, 2012 [facility] [place] [facility] [address] [id number] [place] [address] 16 Feb, 2012 [facility] [place] [facility] [address] [id number] [place] [address] 14 Feb, 2012 [facility] [place] [facility] [address] [id number] [place] [address] 08 Feb, 2012 [facility] [place] [facility] [address] [id number] [place] [address] 08 Feb, 2012 [facility] [place] [facility] [address] [id number] [place] [address] 27 Dec, 2011 [facility] [place] [facility] [address] [id number] [place] [address] 07 Dec, 2011 [facility] [place] [facility] [address] [id number] [place] [address] 30 Nov, 2011 [facility] [place] [facility] [address] [id number] [place] [address] Nov, [facility] [place] [facility] [address] [facility] [id number] [place] [address] Oct, [facility] [place] [facility] [address] [id number] [place] [address] Oct, [facility] [place] [facility] [address] [id number] [place] [address] 14 Sep, 2011 [facility] [place] [facility] [address] [id number] [place] [address] 28 May, 2011 [facility] [place] [facility] [address] [id number] [place] [address] 15 May, 2011 [facility] [place] [facility] [address] [id number] [place] [address] May, [facility] [place] [facility] [address] [id number] [place] [address] Apr, [facility] [place] [facility] [address] [id number] [address] Mar, [facility] [place] [facility] [address] [facility] [id number] [place] [address] Mar, [facility] [place] [facility] [address] [id number], [place] [address] Feb, [facility] [place] [facility] [address] [id number] [place] [address] Feb, [facility] [place] [facility] [address] [facility] [id number], [place] [address] Feb, [facility] [place] [facility] [address] [facility] [id number], [place] [address] Jan, [facility] [place] [facility] [address] [id number], [place] [address] Jan, [facility] [place] [facility] [address] [facility] [id number], [place] [address] Dec, [facility] [place] [facility] [address] [facility] [id number], [place] [address] Mar, [facility] [place] [facility] [address] [id number], [place] [address] Feb, [facility] [place] [facility] [address] [id number], [place] [address] 10 Feb, 2009 [facility] [place] [facility] [address] [id number], [place] [address] Feb, [facility] [place] [facility] [address] [facility] [id number], [place] [address] 20 Jan, 2009 [facility] [place] [facility] [address] [facility] [id number], [place] [address] 16 Dec, 2008 [facility] [place] [facility] [address] [facility] [id number] [place] [address] Nov, [facility] [place] [address] [facility] [id number] [address] Sep, [facility] [place] [address] [facility] [id number], [place] [address] August, [facility] [place] [address] [facility] [id number], [place] [address] May, [facility] [place] [address] [facility] [id number], [place] [address] Mar, IMMUNIZATIONS No Known Immunizations SOCIAL HISTORY Never Assessed REASON FOR VISIT [facility] PLAN OF CARE VITAL SIGNS MEDICATIONS Unknown [...] Hospitalization History left foot swollen, stepped in [facility] ER 05/02/17 Hospitalization History [facility] ER 06/2018
--- OUTSIDE RECORDS SUMMARY | 2018-10-19 22:05 | XMS REPORT ---
Author Author Migration, Doctor Organization [facility] Address Unknown Phone Unavailable Care Team Providers Care Managing Supervisor Name Role Phone Migration, Doctor Unavailable Unavailable PROBLEMS Type Condition ICD9-CM Code YXI97-KL Code Onset Dates Condition Status SNOMED Code Problem Panic disorder with agoraphobia F40.01 Active 80747206 Problem COPD (chronic obstructive pulmonary disease) J44.9 Active 00884402 Problem Bipolar disease, chronic F31.9 Active 59013342 Problem Chronic pain G89.29 Active 70156130 Problem Degenerative joint disease M19.90 Active 052185676 Problem Morbid (severe) obesity due to excess calories E66.01 Active 90051750524554 Problem Body mass index (BMI) of 40.0-44.9 in adult Z68.41 Active 980657933 Problem Xanax use disorder, moderate F13.20 Active 725832442 Problem Opioid use disorder, moderate, dependence F11.20 Active 30571810 Problem Psychosis, unspecified psychosis type F29 Active 94518208 Problem Methamphetamine use disorder, severe, 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 Active 13804016 Problem Lumbago with sciatica, left side M54.42 Active 692556397 Problem Personality disorder F60.9 Active 04779588 Problem Other chronic pain G89.29 Active 83596999 Problem Lumbago with sciatica, right side M54.41 Active 398932602207761 Problem Depressive disorder, not elsewhere classified F32.9 Active 84918260 Problem Right sciatic nerve pain M54.31 Active 95096599 Problem 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 Active 810312954038126 Problem Nocturnal hypoxemia G47.34 Active 587143707 Problem Pre-diabetes R73.03 Active 690265800 Problem Bilateral carpal tunnel syndrome G56.03 Active 77795701 Problem Acquired hypothyroidism E03.9 Active 730435964 Problem Cigarette nicotine dependence without complication F17.210 Active 43481935 Problem Fibrocystic changes of left breast N60.12 Active 20782674 Problem Hypothyroidism (acquired) E03.9 Active 60374489 Problem Mood disorder F39 Active 38703460 Problem Nicotine withdrawal F17.203 Active 66713566 ALLERGIES No Information ENCOUNTERS Encounter Location Date Diagnosis [place] [address] [address] August, [place] [address] [address] Jul, Closed fracture of one rib of right side with routine healing, subsequent encounter S22.31XD [place] [address] [address] 14 Jun, 2018 Acute pain of right wrist M25.531 [place] [address] [address] 14 Jun, 2018 High risk medication use Z79.899 ; Methamphetamine use disorder, severe, 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 ; Psychosis, unspecified psychosis type F29 ; Xanax use disorder, moderate F13.20 ; Personality disorder F60.9 ; Opioid use disorder, moderate, dependence F11.20 and Morbid obesity E66.01 [place] [address] [address] 14 May, 2018 Bilateral carpal tunnel syndrome G56.03 [place] [address] [address] Apr, [place] [address] [address] Apr, Bronchitis J40 [place] [address] [address] Apr, Nocturnal hypoxemia G47.34 and Acute pain of right wrist M25.531 [place] [address] [address] Apr, Bronchitis J40 and Hypothyroidism (acquired) E03.9 [facility] [address] [address] Mar, BMI 45.0-49.9, adult Z68.42 ; Right-sided chest wall pain R07.89 and Cough R05 [place] [address] [address] [place] [id number] [place] [address] 14 Mar, 2018 [place] [address] [address] 13 Mar, 2018 Methamphetamine use disorder, severe, 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 ; Psychosis, unspecified psychosis type F29 ; Xanax use disorder, moderate F13.20 ; Personality disorder F60.9 ; Opioid use disorder, moderate, dependence F11.20 and BMI 45.0-49.9, adult Z68.42 [place] [address] [address] 07 Mar, 2018 Acquired hypothyroidism E03.9 [place] [address] [address] 06 Mar, 2018 Bronchitis J40 ; Costochondritis M94.0 ; Hypothyroidism (acquired) E03.9 ; Pre-diabetes R73.03 ; Acquired hypothyroidism E03.9 and BMI 45.0-49.9, adult Z68.42 [place] [address] [address] 12 Feb, 2018 Lumbago with sciatica, right side M54.41 [place] [address] [address] Feb, Acquired hypothyroidism E03.9 [place] [address] [address] Feb, Liver enzyme elevation R74.8 [place] [address] [place] [id number] [place] [address] 09 Feb, 2018 Mood disorder F39 ; Nicotine withdrawal F17.203 ; Liver enzyme elevation R74.8 ; Hypothyroidism (acquired) E03.9 and BMI 45.0-49.9, adult Z68.42 [place] [address] [address] Jan, Methamphetamine use disorder, severe, 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 ; Psychosis, unspecified psychosis type F29 ; Personality disorder F60.9 ; Opioid use disorder, moderate, dependence F11.20 ; Xanax use disorder, moderate F13.20 and BMI 45.0-49.9, adult Z68.42 [place] [address] [place] [id number] [place] [address] Jan, Liver enzyme elevation R74.8 and Hypothyroidism (acquired) E03.9 [place] [address] [address] 27 Dec, 2017 BMI 40.0-44.9, adult Z68.41 ; Chronic pain G89.29 ; Degenerative joint disease M19.90 and Pre-diabetes R73.03 [place] [address] [address] Dec, [place] [address] [address] Dec, Methamphetamine use disorder, severe, 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 ; Psychosis, unspecified psychosis type F29 ; Personality disorder F60.9 ; Opioid use disorder, moderate, dependence F11.20 ; Xanax use disorder, moderate F13.20 and BMI 45.0-49.9, adult Z68.42 [place] [address] [address] Dec, [place] [address] [address] Oct, Breast pain N64.4 ; Fibrocystic changes of left breast N60.12 and Bilateral otitis media with effusion H65.93 [facility] [address] [address] Sep, 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 [place] [address] [address] Sep, [place] [address] [address] Sep, Methamphetamine use disorder, severe, 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 ; Psychosis, unspecified psychosis type F29 ; Personality disorder F60.9 ; Opioid use disorder, moderate, dependence F11.20 ; Xanax use disorder, moderate F13.20 and BMI 40.0-44.9, adult Z68.41 [place] [address] [place] [id number] [place] [address] Sep, Depressive disorder, not elsewhere classified F32.9 and Psychosis, unspecified psychosis type F29 [place] [address] [address] August, [place] [address] [address] August, Depressive disorder, not elsewhere classified F32.9 and Psychosis, unspecified psychosis type F29 [place] [address] [address] August, [place] [address] [place] [id number] [place] [address] August, Lumbago with sciatica, right side M54.41 and Other chronic pain G89.29 [facility] [address] [place] [id number] [place] [address] Jul, Right sciatic nerve pain M54.31 [place] [address] [place] [id number] [place] [address] Jul, Acquired hypothyroidism E03.9 [facility] [address] [place] [id number] [place] [address] Jul, Depressive disorder, not elsewhere classified F32.9 and Psychosis, unspecified psychosis type F29 [place] [address] [place] [id number] [place] [address] Jul, Acquired hypothyroidism E03.9 ; Lumbago with sciatica, right side M54.41 and Lumbar radiculopathy, acute M54.16 [place] [address] [place] [address] Jul, Methamphetamine use disorder, severe, 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 ; Psychosis, unspecified psychosis type F29 ; Personality disorder F60.9 ; Opioid use disorder, moderate, dependence F11.20 ; Xanax use disorder, moderate F13.20 and BMI 40.0-44.9, adult Z68.41 [place] [address] [place] [id number] [place] [address] Jun, Methamphetamine use disorder, severe, 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 ; Psychosis, unspecified psychosis type F29 ; Personality disorder F60.9 ; Opioid use disorder, moderate, dependence F11.20 and Xanax use disorder, moderate F13.20 [place] [id number] [place] [address] Jun, Depressive disorder, not elsewhere classified F32.9 and Psychosis, unspecified psychosis type F29 [place] [id number] [place] [address] Jun, Lumbar radiculopathy, acute M54.[address] [address] Jun, Lumbar radiculopathy, acute M54.16 ; Strain of abdominal wall, initial encounter S39.011A and BMI 40.0-44.9, adult Z68.41 [place] [id number] [place] [address] Jun, [place] [address] [place] [id number] [place] [address] May, [address] [address] May, Methamphetamine use disorder, severe, 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 ; Psychosis, unspecified psychosis type F29 ; Personality disorder F60.9 ; Opioid use disorder, moderate, dependence F11.20 and Xanax use disorder, moderate F13.20 [place] [address] [place] [id number] [place] [address] May, [place] [address] [address] May, [place] [address] [place] [id number] [place] [address] May, Lumbago with sciatica, left side M54.42 ; Lumbago with sciatica, right side M54.41 ; Other chronic pain G89.29 ; Weight gain R63.5 ; Acquired hypothyroidism E03.9 and BMI 40.0-44.9, adult Z68.41 [place] [address] [address] Apr, Cigarette nicotine dependence without complication F17.210 [place] [address] [address] Apr, Acute bilateral low back pain without sciatica M54.5 [place] [address] [place] [id number] [place] [address] Apr, Methamphetamine use disorder, severe, 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 ; Psychosis, unspecified psychosis type F29 ; Personality disorder F60.9 ; Opioid use disorder, moderate, dependence F11.20 and Xanax use disorder, moderate F13.20 [facility] [address] [place] [id number] [place] [address] Apr, Wheezing R06.2 and Bronchitis J40 [place] [address] [place] [id number] [place] [address] Apr, Bronchitis J40 ; Cigarette nicotine dependence without complication F17.210 and Bipolar disease, chronic F31.9 [place] [address] [place] [id number] [place] [address] Mar, Acquired hypothyroidism E03.9 [place] [address] [place] [id number] [place] [address] Mar, Acquired hypothyroidism E03.9 [place] [address] [place] [address] Mar, Orthostatic hypotension I95.1 and Non-intractable vomiting with nausea, unspecified vomiting type R11.[address] [place] [address] 14 Mar, 2017 Strain of lumbar region, initial encounter S39.012A [address] [address] Mar, [facility] [address] [place] [address] Mar, Bronchitis J40 [place] [id number] [place] [address] 05 Mar, 2017 Degenerative joint disease M19.90 ; Elevated LFTs R79.89 ; Adenopathy R59.1 ; Drug use F19.90 ; Pre-diabetes R73.03 and COPD (chronic obstructive pulmonary disease) J44.9 [facility] [address] [place] [id number] [place] [address] 30 Feb, 2017 Left hand pain M79.642 and Contusion of left hand, initial encounter S60.222A [place] [id number] [place] [address] Feb, Body aches R52 and Flu-like symptoms R68.89 [place] [address] [place] [id number] [place] [address] Jan, [place] [id number] [place] [address] Jan, Bipolar disease, chronic F31.9 ; Acquired hypothyroidism E03.9 and Encounter for immunization Z23 [facility] [address] [place] [id number] [place] [address] 05 Dec, 2016 Crushing injury of left wrist and hand, initial encounter S67.42XA [place] [id number] [place] [address] Sep, [address] [address] Sep, Bipolar disease, chronic F31.9 ; Panic disorder with agoraphobia F40.01 and Proteinuria, unspecified type R80.[address] [address] August, [place] [address] [address] August, Degenerative joint disease M19.90 ; Left-sided chest wall pain R07.89 ; Bipolar disease, chronic F31.9 ; Type 2 diabetes mellitus without complication, without long-term current use of insulin E11.9 ; Acquired hypothyroidism E03.9 and Acute cystitis without hematuria N30.[address] [address] Mar, [place] [address] [address] Feb, [facility] [address] [address] Feb, Right hand pain M79.641 [facility] [place] [id number] [place] [address] Feb, Bronchitis J40 ; Acute non-recurrent pansinusitis J01.40 and Seasonal allergic rhinitis due to other allergic trigger J30.89 [place] [id number] [place] [address] Dec, [facility] [address] [address] Mar, Left-sided chest wall pain R07.89 and Chronic pain G89.29 [place] [id number] [place] [address] Jul, [address] [place] [address] Jul, [facility] [place] [facility] [address] [id number] [place] [address] May, [facility] [place] [facility] [address] [id number] [place] [address] May, [facility] [place] [facility] [address] [id number] [place] [address] Apr, [facility] [place] [facility] [address] [id number] [place] [address] Apr, [facility] [place] [facility] [address] [id number] [place] [address] Mar, [facility] [place] [facility] [address] [id number] [place] [address] Mar, [facility] [place] [facility] [address] [id number] [place] [address] Feb, [facility] [place] [facility] [address] [id number] [place] [address] Feb, [facility] [place] [facility] [address] [id number] [place] [address] Jan, [facility] [place] [facility] [address] [id number] [place] [address] Jan, [facility] [place] [facility] [address] [id number] [place] [address] Jan, [facility] [place] [facility] [address] [id number] [place] [address] 28 Jan, 2014 [facility] [place] [facility] [address] [id number] [place] [address] Jan, [facility] [place] [facility] [address] [id number] [place] [address] 15 Jan, 2014 [facility] [place] [facility] [address] [id number] [place] [address] Dec, [facility] [place] [facility] [address] [id number] [place] [address] 19 Dec, 2013 [facility] [place] [facility] [address] [id number] [place] [address] 19 Dec, 2013 [facility] [place] [facility] [address] [id number] [place] [address] 19 Dec, 2013 [facility] [place] [facility] [address] [id number] [place] [address] 18 Dec, 2013 [facility] [place] [facility] [address] [id number] [place] [address] 18 Dec, 2013 [facility] [place] [facility] [address] [id number] [place] [address] 16 Dec, 2013 [facility] [place] [facility] [address] [id number] [place] [address] 16 Dec, 2013 [facility] [place] [facility] [address] [id number] [place] [address] 17 Sep, 2013 [facility] [place] [facility] [address] [id number] [place] [address] 17 Sep, 2013 [facility] [place] [facility] [address] [id number] [place] [address] 15 Jul, 2013 [facility] [place] [facility] [address] [id number] [place] [address] 15 Jul, 2013 [facility] [place] [facility] [address] [id number] [place] [address] 10 Jul, 2013 [facility] [place] [facility] [address] [id number] [place] [address] 10 Jul, 2013 [facility] [place] [facility] [address] [id number] [place] [address] 03 Jul, 2013 [facility] [place] [facility] [address] [id number] [place] [address] 03 Jul, 2013 [facility] [place] [facility] [address] [id number] [place] [address] Jul, [facility] [place] [facility] [address] [id number] [place] [address] Jul, [facility] [place] [facility] [address] [id number] [place] [address] Jun, [facility] [place] [facility] [address] [id number] [place] [address] Jun, [facility] [place] [facility] [address] [id number] [place] [address] May, [facility] [place] [facility] [address] [id number] [place] [address] May, [facility] [place] [facility] [address] [id number] [place] [address] May, [facility] [place] [facility] [address] [id number] [place] [address] May, [facility] [place] [facility] [address] [id number] [place] [address] Apr, [facility] [place] [facility] [address] [id number] [place] [address] Apr, [facility] [place] [facility] [address] [facility] [id number] [place] [address] Mar, [facility] [place] [facility] [address] [id number] [place] [address] Mar, [facility] [place] [facility] [address] [id number] [place] [address] Feb, [facility] [place] [facility] [address] [id number] [place] [address] Feb, [facility] [place] [facility] [address] [facility] [id number] [place] [address] Feb, [facility] [place] [facility] [address] [id number] [place] [address] Feb, [facility] [place] [facility] [address] [id number] [place] [address] Jan, [facility] [place] [facility] [address] [id number] [place] [address] Jan, [facility] [place] [facility] [address] [id number] [place] [address] Jan, [facility] [place] [facility] [address] [id number] [place] [address] Jan, [facility] [address] [id number] [place] [address] Jan, [facility] [place] [facility] [address] [id number] [place] [address] Dec, [facility] [place] [facility] [address] [id number] [place] [address] Dec, [facility] [place] [facility] [address] [id number] [place] [address] Nov, [facility] [place] [facility] [address] [id number] [place] [address] Sep, [facility] [place] [facility] [address] [id number] [place] [address] August, [facility] [place] [facility] [address] [id number] [place] [address] August, [facility] [place] [facility] [address] [id number] [place] [address] Jul, [facility] [place] [facility] [address] [id number] [place] [address] Jul, [facility] [place] [facility] [address] [id number] [place] [address] Jul, [facility] [place] [facility] [address] [id number] [place] [address] Jul, [facility] [place] [facility] [address] [id number] [place] [address] Jul, [facility] [address] [id number] [place] [address] Jul, [facility] [place] [facility] [address] [id number] [place] [address] Jul, [facility] [place] [facility] [address] [facility] [id number] [place] [address] Jun, [facility] [place] [facility] [address] [id number] [place] [address] Jun, [facility] [place] [facility] [address] [id number] [place] [address] May, [facility] [place] [facility] [address] [id number] [place] [address] Apr, [facility] [address] [facility] [id number] [place] [address] Apr, [facility] [place] [facility] [address] [id number] [place] [address] Mar, [facility] [address] [facility] [id number] [place] [address] Mar, [facility] [place] [facility] [address] [facility] [id number] [place] [address] Mar, [facility] [place] [facility] [address] [id number] [place] [address] Feb, [facility] [place] [facility] [address] [id number] [place] [address] Feb, [facility] [place] [facility] [address] [id number] [place] [address] Feb, [facility] [place] [facility] [address] [id number] [place] [address] Feb, [facility] [place] [facility] [address] [facility] [id number] [place] [address] Feb, [facility] [place] [facility] [address] [id number] [place] [address] 19 Feb, 2012 [facility] [place] [facility] [address] [id number] [place] [address] 16 Feb, 2012 [facility] [place] [facility] [address] [id number] [place] [address] 16 Feb, 2012 [facility] [place] [facility] [address] [id number] [place] [address] 14 Feb, 2012 [facility] [place] [facility] [address] [id number] [place] [address] 08 Feb, 2012 [facility] [place] [facility] [address] [id number] [place] [address] 08 Feb, 2012 [facility] [place] [facility] [address] [id number] [place] [address] 27 Dec, 2011 [facility] [place] [facility] [address] [id number] [place] [address] 07 Dec, 2011 [facility] [place] [facility] [address] [id number] [place] [address] 30 Nov, 2011 [facility] [place] [facility] [address] [id number] [place] [address] Nov, [facility] [place] [facility] [address] [facility] [id number] [place] [address] Oct, [facility] [place] [facility] [address] [id number] [place] [address] Oct, [facility] [place] [facility] [address] [id number] [place] [address] 14 Sep, 2011 [facility] [place] [facility] [address] [id number] [place] [address] 28 May, 2011 [facility] [place] [facility] [address] [id number] [place] [address] 15 May, 2011 [facility] [place] [facility] [address] [id number] [place] [address] May, [facility] [place] [facility] [address] [id number] [place] [address] Apr, [facility] [place] [facility] [address] [id number] [place] [address] Mar, [facility] [place] [facility] [address] [facility] [id number] [place] [address] Mar, [facility] [place] [facility] [address] [id number] [place] [address] Feb, [facility] [place] [facility] [address] [id number] [place] [address] Feb, [facility] [place] [facility] [address] [facility] [id number] [place] [address] Feb, [facility] [place] [facility] [address] [facility] [id number] [place] [address] Jan, [facility] [place] [facility] [address] [id number] [place] [address] Jan, [facility] [place] [facility] [address] [facility] [id number] [place] [address] Dec, [facility] [place] [facility] [address] [facility] [id number] [place] [address] Mar, [facility] [place] [facility] [address] [id number] [place] [address] Feb, [facility] [place] [facility] [address] [id number] [place] [address] 10 Feb, 2009 [facility] [place] [facility] [address] [id number] [place] [address] Feb, [facility] [place] [facility] [address] [facility] [id number] [place] [address] 20 Jan, 2009 [facility] [place] [facility] [address] [facility] [id number] [place] [address] 16 Dec, 2008 [facility] [place] [facility] [address] [facility] [id number] [place] [address] Nov, [facility] [address] [facility] [id number] [place] [address] Sep, [facility] [address] [facility] [id number] [place] [address] August, [facility] [address] [address] [facility] [id number] [address] May, [facility] [address] [facility] [id number] [place] [address] Mar, IMMUNIZATIONS No Known Immunizations SOCIAL HISTORY Never Assessed REASON FOR VISIT [facility] PLAN OF CARE VITAL SIGNS [...] in [facility] ER 05/02/17 Hospitalization History [facility] ER 06/2018
--- OUTSIDE RECORDS SUMMARY | 2018-10-19 22:06 | XMS REPORT ---
Author Author Migration, Doctor Organization [facility] Address Unknown Phone Unavailable Care Team Providers Care Thermo Processor Name Role Phone Migration, Doctor Unavailable Unavailable PROBLEMS Type Condition ICD9-CM Code PPM71-CL Code Onset Dates Condition Status SNOMED Code Problem Panic disorder with agoraphobia F40.01 Active 18726355 Problem COPD (chronic obstructive pulmonary disease) J44.9 Active 58989610 Problem Bipolar disease, chronic F31.9 Active 52196258 Problem Chronic pain G89.29 Active 22971776 Problem Degenerative joint disease M19.90 Active 008394667 Problem Morbid (severe) obesity due to excess calories E66.01 Active 60033784572845 Problem Body mass index (BMI) of 40.0-44.9 in adult Z68.41 Active 794041526 Problem Xanax use disorder, moderate F13.20 Active 995572805 Problem Opioid use disorder, moderate, dependence F11.20 Active 58242723 Problem Psychosis, unspecified psychosis type F29 Active 02371703 Problem Methamphetamine use disorder, severe, 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 Active 24392215 Problem Lumbago with sciatica, left side M54.42 Active 791212451 Problem Personality disorder F60.9 Active 75958818 Problem Other chronic pain G89.29 Active 05937670 Problem Lumbago with sciatica, right side M54.41 Active 206567025983552 Problem Depressive disorder, not elsewhere classified F32.9 Active 38003525 Problem Right sciatic nerve pain M54.31 Active 32751520 Problem 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 Active 345710874752471 Problem Nocturnal hypoxemia G47.34 Active 102552913 Problem Pre-diabetes R73.03 Active 623281338 Problem Bilateral carpal tunnel syndrome G56.03 Active 74380446 Problem Acquired hypothyroidism E03.9 Active 619693484 Problem Cigarette nicotine dependence without complication F17.210 Active 66892249 Problem Fibrocystic changes of left breast N60.12 Active 04301015 Problem Hypothyroidism (acquired) E03.9 Active 34710759 Problem Mood disorder F39 Active 71974308 Problem Nicotine withdrawal F17.203 Active 37737534 ALLERGIES No Information ENCOUNTERS Encounter Location Date Diagnosis [place] [address] [address] August, [place] [address] [address] Jul, Closed fracture of one rib of right side with routine healing, subsequent encounter S22.31XD [place] [address] [address] 14 Jun, 2018 Acute pain of right wrist M25.531 [place] [address] [address] 14 Jun, 2018 High risk medication use Z79.899 ; Methamphetamine use disorder, severe, 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 ; Psychosis, unspecified psychosis type F29 ; Xanax use disorder, moderate F13.20 ; Personality disorder F60.9 ; Opioid use disorder, moderate, dependence F11.20 and Morbid obesity E66.01 [place] [address] [address] 14 May, 2018 Bilateral carpal tunnel syndrome G56.03 [place] [address] [address] Apr, [place] [address] [address] Apr, Bronchitis J40 [place] [address] [address] Apr, Nocturnal hypoxemia G47.34 and Acute pain of right wrist M25.531 [place] [address] [address] Apr, Bronchitis J40 and Hypothyroidism (acquired) E03.9 [facility] [address] [address] Mar, BMI 45.0-49.9, adult Z68.42 ; Right-sided chest wall pain R07.89 and Cough R05 [place] [address] [place] [id number] [place] [address] 14 Mar, 2018 [place] [address] [address] 13 Mar, 2018 Methamphetamine use disorder, severe, 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 ; Psychosis, unspecified psychosis type F29 ; Xanax use disorder, moderate F13.20 ; Personality disorder F60.9 ; Opioid use disorder, moderate, dependence F11.20 and BMI 45.0-49.9, adult Z68.42 [place] [address] [address] 07 Mar, 2018 Acquired hypothyroidism E03.9 [place] [address] [address] 06 Mar, 2018 Bronchitis J40 ; Costochondritis M94.0 ; Hypothyroidism (acquired) E03.9 ; Pre-diabetes R73.03 ; Acquired hypothyroidism E03.9 and BMI 45.0-49.9, adult Z68.42 [place] [address] [address] 12 Feb, 2018 Lumbago with sciatica, right side M54.41 [place] [address] [address] Feb, Acquired hypothyroidism E03.9 [place] [address] [address] Feb, Liver enzyme elevation R74.8 [place] [address] [place] [id number] [place] [address] 09 Feb, 2018 Mood disorder F39 ; Nicotine withdrawal F17.203 ; Liver enzyme elevation R74.8 ; Hypothyroidism (acquired) E03.9 and BMI 45.0-49.9, adult Z68.42 [place] [address] [address] Jan, Methamphetamine use disorder, severe, 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 ; Psychosis, unspecified psychosis type F29 ; Personality disorder F60.9 ; Opioid use disorder, moderate, dependence F11.20 ; Xanax use disorder, moderate F13.20 and BMI 45.0-49.9, adult Z68.42 [place] [address] [place] [id number] [place] [address] Jan, Liver enzyme elevation R74.8 and Hypothyroidism (acquired) E03.9 [place] [address] [address] 27 Dec, 2017 BMI 40.0-44.9, adult Z68.41 ; Chronic pain G89.29 ; Degenerative joint disease M19.90 and Pre-diabetes R73.03 [place] [address] [address] Dec, [place] [address] [address] Dec, Methamphetamine use disorder, severe, 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 ; Psychosis, unspecified psychosis type F29 ; Personality disorder F60.9 ; Opioid use disorder, moderate, dependence F11.20 ; Xanax use disorder, moderate F13.20 and BMI 45.0-49.9, adult Z68.42 [place] [address] [address] Dec, [place] [address] [address] Oct, Breast pain N64.4 ; Fibrocystic changes of left breast N60.12 and Bilateral otitis media with effusion H65.93 [facility] [address] [address] Sep, 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 [place] [address] [address] Sep, [place] [address] [address] Sep, Methamphetamine use disorder, severe, 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 ; Psychosis, unspecified psychosis type F29 ; Personality disorder F60.9 ; Opioid use disorder, moderate, dependence F11.20 ; Xanax use disorder, moderate F13.20 and BMI 40.0-44.9, adult Z68.41 [place] [address] [place] [id number] [place] [address] Sep, Depressive disorder, not elsewhere classified F32.9 and Psychosis, unspecified psychosis type F29 [place] [address] [address] August, [place] [address] [address] August, Depressive disorder, not elsewhere classified F32.9 and Psychosis, unspecified psychosis type F29 [place] [address] [address] August, [place] [address] [place] [id number] [place] [address] August, Lumbago with sciatica, right side M54.41 and Other chronic pain G89.29 [facility] [address] [place] [id number] [place] [address] Jul, Right sciatic nerve pain M54.31 [place] [address] [place] [id number] [place] [address] Jul, Acquired hypothyroidism E03.9 [facility] [address] [place] [id number] [place] [address] Jul, Depressive disorder, not elsewhere classified F32.9 and Psychosis, unspecified psychosis type F29 [place] [address] [place] [id number] [place] [address] Jul, Acquired hypothyroidism E03.9 ; Lumbago with sciatica, right side M54.41 and Lumbar radiculopathy, acute M54.16 [place] [id number] [place] [address] Jul, Methamphetamine use disorder, severe, 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 ; Psychosis, unspecified psychosis type F29 ; Personality disorder F60.9 ; Opioid use disorder, moderate, dependence F11.20 ; Xanax use disorder, moderate F13.20 and BMI 40.0-44.9, adult Z68.41 [place] [address] [place] [id number] [place] [address] Jun, Methamphetamine use disorder, severe, 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 ; Psychosis, unspecified psychosis type F29 ; Personality disorder F60.9 ; Opioid use disorder, moderate, dependence F11.20 and Xanax use disorder, moderate F13.20 [place] [id number] [place] [address] Jun, Depressive disorder, not elsewhere classified F32.9 and Psychosis, unspecified psychosis type F29 [place] [id number] [place] [address] Jun, Lumbar radiculopathy, acute M54.[address] [address] Jun, Lumbar radiculopathy, acute M54.16 ; Strain of abdominal wall, initial encounter S39.011A and BMI 40.0-44.9, adult Z68.41 [place] [id number] [place] [address] Jun, [place] [address] [place] [id number] [place] [address] May, [address] [address] May, Methamphetamine use disorder, severe, 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 ; Psychosis, unspecified psychosis type F29 ; Personality disorder F60.9 ; Opioid use disorder, moderate, dependence F11.20 and Xanax use disorder, moderate F13.20 [place] [address] [place] [id number] [place] [address] May, [place] [address] [address] May, [place] [address] [place] [id number] [place] [address] May, Lumbago with sciatica, left side M54.42 ; Lumbago with sciatica, right side M54.41 ; Other chronic pain G89.29 ; Weight gain R63.5 ; Acquired hypothyroidism E03.9 and BMI 40.0-44.9, adult Z68.41 [place] [address] [address] Apr, Cigarette nicotine dependence without complication F17.210 [place] [address] [address] Apr, Acute bilateral low back pain without sciatica M54.5 [place] [address] [place] [id number] [place] [address] Apr, Methamphetamine use disorder, severe, 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 ; Psychosis, unspecified psychosis type F29 ; Personality disorder F60.9 ; Opioid use disorder, moderate, dependence F11.20 and Xanax use disorder, moderate F13.20 [facility] [address] [place] [id number] [place] [address] Apr, Wheezing R06.2 and Bronchitis J40 [place] [address] [place] [id number] [place] [address] Apr, Bronchitis J40 ; Cigarette nicotine dependence without complication F17.210 and Bipolar disease, chronic F31.9 [place] [address] [place] [id number] [place] [address] Mar, Acquired hypothyroidism E03.9 [place] [address] [place] [id number] [place] [address] Mar, Acquired hypothyroidism E03.9 [place] [address] [place] [address] Mar, Orthostatic hypotension I95.1 and Non-intractable vomiting with nausea, unspecified vomiting type R11.[address] [place] [address] 14 Mar, 2017 Strain of lumbar region, initial encounter S39.012A [address] [address] Mar, [facility] [address] [place] [address] Mar, Bronchitis J40 [place] [id number] [place] [address] 05 Mar, 2017 Degenerative joint disease M19.90 ; Elevated LFTs R79.89 ; Adenopathy R59.1 ; Drug use F19.90 ; Pre-diabetes R73.03 and COPD (chronic obstructive pulmonary disease) J44.9 [facility] [address] [place] [id number] [place] [address] 30 Feb, 2017 Left hand pain M79.642 and Contusion of left hand, initial encounter S60.222A [place] [id number] [place] [address] Feb, Body aches R52 and Flu-like symptoms R68.89 [place] [address] [place] [id number] [place] [address] Jan, [place] [id number] [place] [address] Jan, Bipolar disease, chronic F31.9 ; Acquired hypothyroidism E03.9 and Encounter for immunization Z23 [facility] [address] [place] [id number] [place] [address] 05 Dec, 2016 Crushing injury of left wrist and hand, initial encounter S67.42XA [place] [id number] [place] [address] Sep, [address] [address] Sep, Bipolar disease, chronic F31.9 ; Panic disorder with agoraphobia F40.01 and Proteinuria, unspecified type R80.[address] [address] August, [place] [address] [address] August, Degenerative joint disease M19.90 ; Left-sided chest wall pain R07.89 ; Bipolar disease, chronic F31.9 ; Type 2 diabetes mellitus without complication, without long-term current use of insulin E11.9 ; Acquired hypothyroidism E03.9 and Acute cystitis without hematuria N30.[address] [address] Mar, [place] [address] [address] Feb, [facility] [address] [address] Feb, Right hand pain M79.641 [facility] [place] [id number] [place] [address] Feb, Bronchitis J40 ; Acute non-recurrent pansinusitis J01.40 and Seasonal allergic rhinitis due to other allergic trigger J30.89 [place] [id number] [place] [address] Dec, [facility] [address] [address] Mar, Left-sided chest wall pain R07.89 and Chronic pain G89.29 [place] [id number] [place] [address] Jul, [address] [address] Jul, [facility] [place] [facility] [address] [id number] [place] [address] May, [facility] [place] [facility] [address] [id number] [place] [address] May, [facility] [place] [facility] [address] [id number] [place] [address] Apr, [facility] [place] [facility] [address] [id number] [place] [address] Apr, [facility] [place] [facility] [address] [id number] [place] [address] Mar, [facility] [place] [facility] [address] [id number] [place] [address] Mar, [facility] [place] [facility] [address] [id number] [place] [address] Feb, [facility] [place] [facility] [address] [id number] [place] [address] Feb, [facility] [place] [facility] [address] [id number] [place] [address] Jan, [facility] [place] [facility] [address] [id number] [place] [address] Jan, [facility] [place] [facility] [address] [id number] [place] [address] Jan, [facility] [place] [facility] [address] [id number] [place] [address] 28 Jan, 2014 [facility] [place] [facility] [address] [id number] [place] [address] Jan, [facility] [place] [facility] [address] [id number] [place] [address] 15 Jan, 2014 [facility] [place] [facility] [address] [id number] [place] [address] Dec, [facility] [place] [facility] [address] [id number] [place] [address] 19 Dec, 2013 [facility] [place] [facility] [address] [id number] [place] [address] 19 Dec, 2013 [facility] [place] [facility] [address] [id number] [place] [address] 19 Dec, 2013 [facility] [place] [facility] [address] [id number] [place] [address] 18 Dec, 2013 [facility] [place] [facility] [address] [id number] [place] [address] 18 Dec, 2013 [facility] [place] [facility] [address] [id number] [place] [address] 16 Dec, 2013 [facility] [place] [facility] [address] [id number] [place] [address] 16 Dec, 2013 [facility] [place] [facility] [address] [id number] [place] [address] 17 Sep, 2013 [facility] [place] [facility] [address] [id number] [place] [address] 17 Sep, 2013 [facility] [place] [facility] [address] [id number] [place] [address] 15 Jul, 2013 [facility] [place] [facility] [address] [id number] [place] [address] 15 Jul, 2013 [facility] [place] [facility] [address] [id number], [place] [address] 10 Jul, 2013 [facility] [place] [facility] [address] [id number] [place] [address] 10 Jul, 2013 [facility] [place] [facility] [address] [id number] [place] [address] 03 Jul, 2013 [facility] [place] [facility] [address] [id number] [place] [address] 03 Jul, 2013 [facility] [place] [facility] [address] [id number] [place] [address] Jul, [facility] [place] [facility] [address] [id number] [place] [address] Jul, [facility] [place] [facility] [address] [id number] [place] [address] Jun, [facility] [place] [facility] [address] [id number] [place] [address] Jun, [facility] [place] [facility] [address] [id number] [place] [address] May, [facility] [place] [facility] [address] [id number] [place] [address] May, [facility] [place] [facility] [address] [id number] [place] [address] May, [facility] [place] [facility] [address] [id number] [place] [address] May, [facility] [place] [facility] [address] [id number] [place] [address] Apr, [facility] [place] [facility] [address] [id number] [place] [address] Apr, [facility] [place] [facility] [address] [facility] [id number] [place] [address] Mar, [facility] [place] [facility] [address] [id number] [place] [address] Mar, [facility] [place] [facility] [address] [id number] [place] [address] Feb, [facility] [place] [facility] [address] [id number] [place] [address] Feb, [facility] [place] [facility] [address] [facility] [id number] [place] [address] Feb, [facility] [place] [facility] [address] [id number] [place] [address] Feb, [facility] [place] [facility] [address] [id number] [place] [address] Jan, [facility] [place] [facility] [address] [id number] [place] [address] Jan, [facility] [place] [facility] [address] [id number] [place] [address] Jan, [facility] [place] [facility] [address] [id number] [place] [address] Jan, [facility] [address] [id number] [place] [address] Jan, [facility] [place] [facility] [address] [id number] [place] [address] Dec, [facility] [place] [facility] [address] [id number] [place] [address] Dec, [facility] [place] [facility] [address] [id number] [place] [address] Nov, [facility] [place] [facility] [address] [id number] [place] [address] Sep, [facility] [place] [facility] [address] [id number], [place] [address] August, [facility] [place] [facility] [address] [id number] [place] [address] August, [facility] [place] [facility] [address] [id number], [place] [address] Jul, [facility] [place] [facility] [address] [id number] [place] [address] Jul, [facility] [place] [facility] [address] [id number], [place] [address] Jul, [facility] [place] [facility] [address] [id number], [place] [address] Jul, [facility] [place] [facility] [address] [id number], [place] [address] Jul, [facility] [address] [id number] [place] [address] Jul, [facility] [place] [facility] [address] [id number] [place] [address] Jul, [facility] [place] [facility] [address] [facility] [id number] [place] [address] Jun, [facility] [place] [facility] [address] [id number] [place] [address] Jun, [facility] [place] [facility] [address] [id number] [place] [address] May, [facility] [place] [facility] [address] [id number] [place] [address] Apr, [facility] [address] [facility] [id number] [place] [address] Apr, [facility] [place] [facility] [address] [id number] [place] [address] Mar, [facility] [address] [facility] [id number] [place] [address] Mar, [facility] [place] [facility] [address] [facility] [id number] [place] [address] Mar, [facility] [place] [facility] [address] [id number] [place] [address] Feb, [facility] [place] [facility] [address] [id number] [place] [address] Feb, [facility] [place] [facility] [address] [id number] [place] [address] Feb, [facility] [place] [facility] [address] [id number] [place] [address] Feb, [facility] [place] [facility] [address] [facility] [id number] [place] [address] Feb, [facility] [place] [facility] [address] [id number] [place] [address] 19 Feb, 2012 [facility] [place] [facility] [address] [id number] [place] [address] 16 Feb, 2012 [facility] [place] [facility] [address] [id number] [place] [address] 16 Feb, 2012 [facility] [place] [facility] [address] [id number] [place] [address] 14 Feb, 2012 [facility] [place] [facility] [address] [id number] [place] [address] 08 Feb, 2012 [facility] [place] [facility] [address] [id number] [place] [address] 08 Feb, 2012 [facility] [place] [facility] [address] [id number] [place] [address] 27 Dec, 2011 [facility] [place] [facility] [address] [id number] [place] [address] 07 Dec, 2011 [facility] [place] [facility] [address] [id number] [place] [address] 30 Nov, 2011 [facility] [place] [facility] [address] [id number] [place] [address] Nov, [facility] [place] [facility] [address] [facility] [id number] [place] [address] Oct, [facility] [place] [facility] [address] [id number] [place] [address] Oct, [facility] [place] [facility] [address] [id number] [place] [address] 14 Sep, 2011 [facility] [place] [facility] [address] [id number] [place] [address] 28 May, 2011 [facility] [place] [facility] [address] [id number] [place] [address] 15 May, 2011 [facility] [place] [facility] [address] [id number] [place] [address] May, [facility] [place] [facility] [address] [id number] [place] [address] Apr, [facility] [place] [facility] [address] [id number], [place] [address] Mar, [facility] [place] [facility] [address] [facility] [id number] [place] [address] Mar, [facility] [place] [facility] [address] [id number], [place] [address] Feb, [facility] [place] [facility] [address] [id number] [place] [address] Feb, [facility] [place] [facility] [address] [facility] [id number], [place] [address] Feb, [facility] [place] [facility] [address] [facility] [id number], [place] [address] Jan, [facility] [place] [facility] [address] [id number], [place] [address] Jan, [facility] [place] [facility] [address] [facility] [id number], [place] [address] Dec, [facility] [place] [facility] [address] [facility] [id number], [place] [address] Mar, [facility] [place] [facility] [address] [id number], [place] [address] Feb, [facility] [place] [facility] [address] [id number], [place] [address] 10 Feb, 2009 [facility] [place] [facility] [address] [id number], [place] [address] Feb, [facility] [place] [facility] [address] [facility] [id number], [place] [address] 20 Jan, 2009 [facility] [place] [facility] [address] [facility] [id number], [place] [address] 16 Dec, 2008 [facility] [place] [facility] [address] [facility] [id number] [place] [address] Nov, [facility] [place] [address] [facility] [id number], [place] [address] Sep, [facility] [place] [address] [facility] [id number], [place] [address] August, [facility] [place] [facility] [address] [facility] [id number] [address] May, [facility] [place] [address] [facility] [id number], [place] [address] Mar, IMMUNIZATIONS No Known Immunizations SOCIAL HISTORY Never Assessed REASON FOR VISIT [facility] PLAN OF CARE VITAL SIGNS MEDICATIONS Unknown [...] History left foot swollen, stepped in [facility] 05/02/17 Hospitalization History [facility] ER 06/2018
--- OUTSIDE RECORDS SUMMARY | 2018-10-19 22:07 | XMS REPORT ---
Author Author Migration, Doctor Organization [facility] Address Unknown Phone Unavailable Care Team Providers Care Field Director Name Role Phone Migration, Doctor Unavailable Unavailable PROBLEMS Type Condition ICD9-CM Code YDW24-RT Code Onset Dates Condition Status SNOMED Code Problem Panic disorder with agoraphobia F40.01 Active 95173384 Problem COPD (chronic obstructive pulmonary disease) J44.9 Active 37609166 Problem Bipolar disease, chronic F31.9 Active 33650779 Problem Chronic pain G89.29 Active 88067360 Problem Degenerative joint disease M19.90 Active 439446662 Problem Morbid (severe) obesity due to excess calories E66.01 Active 72235765412184 Problem Body mass index (BMI) of 40.0-44.9 in adult Z68.41 Active 020013971 Problem Xanax use disorder, moderate F13.20 Active 700080484 Problem Opioid use disorder, moderate, dependence F11.20 Active 25407965 Problem Psychosis, unspecified psychosis type F29 Active 05343937 Problem Methamphetamine use disorder, severe, 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 Active 85910876 Problem Lumbago with sciatica, left side M54.42 Active 843531509 Problem Personality disorder F60.9 Active 55903034 Problem Other chronic pain G89.29 Active 87588913 Problem Lumbago with sciatica, right side M54.41 Active 767752623005155 Problem Depressive disorder, not elsewhere classified F32.9 Active 07095385 Problem Right sciatic nerve pain M54.31 Active 50140884 Problem 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 Active 702904792671652 Problem Nocturnal hypoxemia G47.34 Active 900829718 Problem Pre-diabetes R73.03 Active 632102284 Problem Bilateral carpal tunnel syndrome G56.03 Active 12854788 Problem Acquired hypothyroidism E03.9 Active 887369459 Problem Cigarette nicotine dependence without complication F17.210 Active 10829603 Problem Fibrocystic changes of left breast N60.12 Active 38819249 Problem Hypothyroidism (acquired) E03.9 Active 50253711 Problem Mood disorder F39 Active 67416280 Problem Nicotine withdrawal F17.203 Active 87445133 ALLERGIES No Information ENCOUNTERS Encounter Location Date Diagnosis [place] [address] [address] Jul, [place] [address] [address] Jul, Closed fracture of one rib of right side with routine healing, subsequent encounter S22.31XD [place] [address] [address] 14 Jun, 2018 Acute pain of right wrist M25.531 [place] [address] [address] Jun, High risk medication use Z79.899 ; Methamphetamine use disorder, severe, 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 ; Psychosis, unspecified psychosis type F29 ; Xanax use disorder, moderate F13.20 ; Personality disorder F60.9 ; Opioid use disorder, moderate, dependence F11.20 and Morbid obesity E66.01 [place] [address] [address] 14 May, 2018 Bilateral carpal tunnel syndrome G56.03 [place] [address] [address] Apr, [place] [address] [address] Apr, Bronchitis J40 [place] [address] [address] Apr, Nocturnal hypoxemia G47.34 and Acute pain of right wrist M25.531 [place] [address] [address] Apr, Bronchitis J40 and Hypothyroidism (acquired) E03.9 [facility] [address] [address] Mar, BMI 45.0-49.9, adult Z68.42 ; Right-sided chest wall pain R07.89 and Cough R05 [place] [address] [place] [id number] [place] [address] 14 Mar, 2018 [place] [address] [address] 13 Mar, 2018 Methamphetamine use disorder, severe, 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 ; Psychosis, unspecified psychosis type F29 ; Xanax use disorder, moderate F13.20 ; Personality disorder F60.9 ; Opioid use disorder, moderate, dependence F11.20 and BMI 45.0-49.9, adult Z68.42 [place] [address] [address] 07 Mar, 2018 Acquired hypothyroidism E03.9 [place] [address] [address] 06 Mar, 2018 Bronchitis J40 ; Costochondritis M94.0 ; Hypothyroidism (acquired) E03.9 ; Pre-diabetes R73.03 ; Acquired hypothyroidism E03.9 and BMI 45.0-49.9, adult Z68.42 [place] [address] [address] 12 Feb, 2018 Lumbago with sciatica, right side M54.41 [place] [address] [address] Feb, Acquired hypothyroidism E03.9 [place] [address] [address] Feb, Liver enzyme elevation R74.8 [place] [address] [place] [id number] [place] [address] 09 Feb, 2018 Mood disorder F39 ; Nicotine withdrawal F17.203 ; Liver enzyme elevation R74.8 ; Hypothyroidism (acquired) E03.9 and BMI 45.0-49.9, adult Z68.42 [place] [address] [address] Jan, Methamphetamine use disorder, severe, 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 ; Psychosis, unspecified psychosis type F29 ; Personality disorder F60.9 ; Opioid use disorder, moderate, dependence F11.20 ; Xanax use disorder, moderate F13.20 and BMI 45.0-49.9, adult Z68.42 [place] [address] [place] [id number] [place] [address] Jan, Liver enzyme elevation R74.8 and Hypothyroidism (acquired) E03.9 [place] [address] [address] 27 Dec, 2017 BMI 40.0-44.9, adult Z68.41 ; Chronic pain G89.29 ; Degenerative joint disease M19.90 and Pre-diabetes R73.03 [place] [address] [address] Dec, [place] [address] [address] Dec, Methamphetamine use disorder, severe, 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 ; Psychosis, unspecified psychosis type F29 ; Personality disorder F60.9 ; Opioid use disorder, moderate, dependence F11.20 ; Xanax use disorder, moderate F13.20 and BMI 45.0-49.9, adult Z68.42 [place] [address] [address] Dec, [place] [address] [address] Oct, Breast pain N64.4 ; Fibrocystic changes of left breast N60.12 and Bilateral otitis media with effusion H65.93 [facility] [address] [address] Sep, 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 [place] [address] [address] Sep, [place] [address] [address] Sep, Methamphetamine use disorder, severe, 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 ; Psychosis, unspecified psychosis type F29 ; Personality disorder F60.9 ; Opioid use disorder, moderate, dependence F11.20 ; Xanax use disorder, moderate F13.20 and BMI 40.0-44.9, adult Z68.41 [place] [address] [place] [id number] [place] [address] Sep, Depressive disorder, not elsewhere classified F32.9 and Psychosis, unspecified psychosis type F29 [place] [address] [address] August, [place] [address] [address] August, Depressive disorder, not elsewhere classified F32.9 and Psychosis, unspecified psychosis type F29 [place] [address] [address] August, [place] [address] [place] [id number] [place] [address] August, Lumbago with sciatica, right side M54.41 and Other chronic pain G89.29 [facility] [address] [place] [id number] [place] [address] Jul, Right sciatic nerve pain M54.31 [place] [address] [place] [id number] [place] [address] Jul, Acquired hypothyroidism E03.9 [facility] [address] [place] [id number] [place] [address] Jul, Depressive disorder, not elsewhere classified F32.9 and Psychosis, unspecified psychosis type F29 [place] [address] [place] [id number] [place] [address] Jul, Acquired hypothyroidism E03.9 ; Lumbago with sciatica, right side M54.41 and Lumbar radiculopathy, acute M54.16 [place] [address] [place] [address] Jul, Methamphetamine use disorder, severe, 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 ; Psychosis, unspecified psychosis type F29 ; Personality disorder F60.9 ; Opioid use disorder, moderate, dependence F11.20 ; Xanax use disorder, moderate F13.20 and BMI 40.0-44.9, adult Z68.41 [place] [address] [place] [id number] [place] [address] Jun, Methamphetamine use disorder, severe, 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 ; Psychosis, unspecified psychosis type F29 ; Personality disorder F60.9 ; Opioid use disorder, moderate, dependence F11.20 and Xanax use disorder, moderate F13.20 [place] [id number] [place] [address] Jun, Depressive disorder, not elsewhere classified F32.9 and Psychosis, unspecified psychosis type F29 [place] [id number] [place] [address] Jun, Lumbar radiculopathy, acute M54.[address] [address] Jun, Lumbar radiculopathy, acute M54.16 ; Strain of abdominal wall, initial encounter S39.011A and BMI 40.0-44.9, adult Z68.41 [place] [id number] [place] [address] Jun, [place] [address] [place] [id number] [place] [address] May, [address] [address] May, Methamphetamine use disorder, severe, 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 ; Psychosis, unspecified psychosis type F29 ; Personality disorder F60.9 ; Opioid use disorder, moderate, dependence F11.20 and Xanax use disorder, moderate F13.20 [place] [address] [place] [id number] [place] [address] May, [place] [address] [address] May, [place] [address] [place] [id number] [place] [address] May, Lumbago with sciatica, left side M54.42 ; Lumbago with sciatica, right side M54.41 ; Other chronic pain G89.29 ; Weight gain R63.5 ; Acquired hypothyroidism E03.9 and BMI 40.0-44.9, adult Z68.41 [place] [address] [address] Apr, Cigarette nicotine dependence without complication F17.210 [place] [address] [address] Apr, Acute bilateral low back pain without sciatica M54.5 [place] [address] [place] [id number] [place] [address] Apr, Methamphetamine use disorder, severe, 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 ; Psychosis, unspecified psychosis type F29 ; Personality disorder F60.9 ; Opioid use disorder, moderate, dependence F11.20 and Xanax use disorder, moderate F13.20 [facility] [address] [place] [id number] [place] [address] Apr, Wheezing R06.2 and Bronchitis J40 [place] [address] [place] [id number] [place] [address] Apr, Bronchitis J40 ; Cigarette nicotine dependence without complication F17.210 and Bipolar disease, chronic F31.9 [place] [address] [place] [id number] [place] [address] Mar, Acquired hypothyroidism E03.9 [place] [address] [place] [id number] [place] [address] Mar, Acquired hypothyroidism E03.9 [place] [address] [place] [address] Mar, Orthostatic hypotension I95.1 and Non-intractable vomiting with nausea, unspecified vomiting type R11.[address] [place] [address] 14 Mar, 2017 Strain of lumbar region, initial encounter S39.012A [address] [address] Mar, [facility] [address] [place] [address] Mar, Bronchitis J40 [place] [id number] [place] [address] 05 Mar, 2017 Degenerative joint disease M19.90 ; Elevated LFTs R79.89 ; Adenopathy R59.1 ; Drug use F19.90 ; Pre-diabetes R73.03 and COPD (chronic obstructive pulmonary disease) J44.9 [facility] [address] [place] [id number] [place] [address] 30 Feb, 2017 Left hand pain M79.642 and Contusion of left hand, initial encounter S60.222A [place] [id number] [place] [address] Feb, Body aches R52 and Flu-like symptoms R68.89 [place] [address] [place] [id number] [place] [address] Jan, [place] [id number] [place] [address] Jan, Bipolar disease, chronic F31.9 ; Acquired hypothyroidism E03.9 and Encounter for immunization Z23 [facility] [address] [place] [id number] [place] [address] 05 Dec, 2016 Crushing injury of left wrist and hand, initial encounter S67.42XA [place] [id number] [place] [address] Sep, [address] [address] Sep, Bipolar disease, chronic F31.9 ; Panic disorder with agoraphobia F40.01 and Proteinuria, unspecified type R80.[address] [address] August, [place] [address] [address] August, Degenerative joint disease M19.90 ; Left-sided chest wall pain R07.89 ; Bipolar disease, chronic F31.9 ; Type 2 diabetes mellitus without complication, without long-term current use of insulin E11.9 ; Acquired hypothyroidism E03.9 and Acute cystitis without hematuria N30.[address] [address] Mar, [place] [address] [address] Feb, [facility] [address] [address] Feb, Right hand pain M79.641 [facility] [place] [id number] [place] [address] Feb, Bronchitis J40 ; Acute non-recurrent pansinusitis J01.40 and Seasonal allergic rhinitis due to other allergic trigger J30.89 [place] [id number] [place] [address] Dec, [facility] [address] [address] Mar, Left-sided chest wall pain R07.89 and Chronic pain G89.29 [place] [id number] [place] [address] Jul, [address] [place] [address] Jul, [facility] [place] [facility] [address] [id number] [place] [address] May, [facility] [place] [facility] [address] [id number] [place] [address] May, [facility] [place] [facility] [address] [id number] [place] [address] Apr, [facility] [place] [facility] [address] [id number] [place] [address] Apr, [facility] [place] [facility] [address] [id number] [place] [address] Mar, [facility] [place] [facility] [address] [id number] [place] [address] Mar, [facility] [place] [facility] [address] [id number] [place] [address] Feb, [facility] [place] [facility] [address] [id number] [place] [address] Feb, [facility] [place] [facility] [address] [id number] [place] [address] Jan, [facility] [place] [facility] [address] [id number] [place] [address] Jan, [facility] [place] [facility] [address] [id number] [place] [address] Jan, [facility] [place] [facility] [address] [id number] [place] [address] 28 Jan, 2014 [facility] [place] [facility] [address] [id number] [place] [address] Jan, [facility] [place] [facility] [address] [id number] [place] [address] 15 Jan, 2014 [facility] [place] [facility] [address] [id number] [place] [address] Dec, [facility] [place] [facility] [address] [id number] [place] [address] 19 Dec, 2013 [facility] [place] [facility] [address] [id number] [place] [address] 19 Dec, 2013 [facility] [place] [facility] [address] [id number] [place] [address] 19 Dec, 2013 [facility] [place] [facility] [address] [id number] [place] [address] 18 Dec, 2013 [facility] [place] [facility] [address] [id number] [place] [address] 18 Dec, 2013 [facility] [place] [facility] [address] [id number] [place] [address] 16 Dec, 2013 [facility] [place] [facility] [address] [id number] [place] [address] 16 Dec, 2013 [facility] [place] [facility] [address] [id number] [place] [address] 17 Sep, 2013 [facility] [place] [facility] [address] [id number] [place] [address] 17 Sep, 2013 [facility] [place] [facility] [address] [id number] [place] [address] 15 Jul, 2013 [facility] [place] [facility] [address] [id number] [place] [address] 15 Jul, 2013 [facility] [place] [facility] [address] [id number] [address] 10 Jul, 2013 [facility] [place] [facility] [address] [id number] [place] [address] 10 Jul, 2013 [facility] [place] [facility] [address] [id number] [place] [address] 03 Jul, 2013 [facility] [place] [facility] [address] [id number] [place] [address] 03 Jul, 2013 [facility] [place] [facility] [address] [id number] [place] [address] Jul, [facility] [place] [facility] [address] [id number] [place] [address] Jul, [facility] [place] [facility] [address] [id number] [place] [address] Jun, [facility] [place] [facility] [address] [id number] [place] [address] Jun, [facility] [place] [facility] [address] [id number] [place] [address] May, [facility] [place] [facility] [address] [id number] [place] [address] May, [facility] [place] [facility] [address] [id number] [place] [address] May, [facility] [place] [facility] [address] [id number] [place] [address] May, [facility] [place] [facility] [address] [id number] [place] [address] Apr, [facility] [place] [facility] [address] [id number] [place] [address] Apr, [facility] [place] [facility] [address] [facility] [id number] [place] [address] Mar, [facility] [place] [facility] [address] [id number] [place] [address] Mar, [facility] [place] [facility] [address] [id number] [place] [address] Feb, [facility] [place] [facility] [address] [id number] [place] [address] Feb, [facility] [place] [facility] [address] [facility] [id number] [place] [address] Feb, [facility] [place] [facility] [address] [id number] [place] [address] Feb, [facility] [place] [facility] [address] [id number] [place] [address] Jan, [facility] [place] [facility] [address] [id number] [place] [address] Jan, [facility] [place] [facility] [address] [id number] [place] [address] Jan, [facility] [place] [facility] [address] [id number] [place] [address] Jan, [facility] [address] [id number] [place] [address] Jan, [facility] [place] [facility] [address] [id number] [place] [address] Dec, [facility] [place] [facility] [address] [id number] [place] [address] Dec, [facility] [place] [facility] [address] [id number] [place] [address] Nov, [facility] [place] [facility] [address] [id number] [place] [address] Sep, [facility] [place] [facility] [address] [id number], [place] [address] August, [facility] [place] [facility] [address] [id number] [place] [address] August, [facility] [place] [facility] [address] [id number], [place] [address] Jul, [facility] [place] [facility] [address] [id number] [place] [address] Jul, [facility] [place] [facility] [address] [id number], [place] [address] Jul, [facility] [place] [facility] [address] [id number], [place] [address] Jul, [facility] [place] [facility] [address] [id number], [place] [address] Jul, [facility] [address] [id number] [place] [address] Jul, [facility] [place] [facility] [address] [id number] [place] [address] Jul, [facility] [place] [facility] [address] [facility] [id number] [place] [address] Jun, [facility] [place] [facility] [address] [id number] [place] [address] Jun, [facility] [place] [facility] [address] [id number] [place] [address] May, [facility] [place] [facility] [address] [id number] [place] [address] Apr, [facility] [address] [facility] [id number] [place] [address] Apr, [facility] [place] [facility] [address] [id number] [place] [address] Mar, [facility] [address] [facility] [id number] [place] [address] Mar, [facility] [place] [facility] [address] [facility] [id number] [place] [address] Mar, [facility] [place] [facility] [address] [id number] [place] [address] Feb, [facility] [place] [facility] [address] [id number] [place] [address] Feb, [facility] [place] [facility] [address] [id number] [place] [address] Feb, [facility] [place] [facility] [address] [id number] [place] [address] Feb, [facility] [place] [facility] [address] [facility] [id number] [place] [address] Feb, [facility] [place] [facility] [address] [id number] [place] [address] 19 Feb, 2012 [facility] [place] [facility] [address] [id number] [place] [id number] 16 Feb, 2012 [facility] [place] [facility] [address] [id number] [place] [address] 16 Feb, 2012 [facility] [place] [facility] [address] [id number] [place] [address] 14 Feb, 2012 [facility] [place] [facility] [address] [id number] [place] [address] 08 Feb, 2012 [facility] [place] [facility] [address] [id number] [place] [id number] 08 Feb, 2012 [facility] [place] [facility] [address] [id number] [place] [id number] 27 Dec, 2011 [facility] [place] [facility] [address] [id number] [place] [address] 07 Dec, 2011 [facility] [place] [facility] [address] [id number] [place] [address] 30 Nov, 2011 [facility] [place] [facility] [address] [id number] [place] [address] Nov, [facility] [place] [facility] [address] [facility] [id number] [place] [address] Oct, [facility] [place] [facility] [address] [id number] [place] [address] Oct, [facility] [place] [facility] [address] [id number] [place] [id number] 14 Sep, 2011 [facility] [place] [facility] [address] [id number] [place] [address] 28 May, 2011 [facility] [place] [facility] [address] [id number] [place] [id number] 15 May, 2011 [facility] [place] [facility] [address] [id number] [place] [address] May, [facility] [place] [facility] [address] [id number] [place] [address] Apr, [facility] [place] [facility] [address] [id number], [place] [address] Mar, [facility] [place] [facility] [address] [facility] [id number] [place] [address] Mar, [facility] [place] [facility] [address] [id number], [place] [address] Feb, [facility] [place] [facility] [address] [id number] [place] [address] Feb, [facility] [place] [facility] [address] [facility] [id number], [place] [address] Feb, [facility] [place] [facility] [address] [facility] [id number], [place] [address] Jan, [facility] [place] [facility] [address] [id number], [place] [address] Jan, [facility] [place] [facility] [address] [facility] [id number], [place] [address] Dec, [facility] [place] [facility] [address] [facility] [id number], [place] [address] Mar, [facility] [place] [facility] [address] [id number], [place] [address] Feb, [facility] [place] [facility] [address] [id number], [place] [address] 10 Feb, 2009 [facility] [place] [facility] [address] [id number], [place] [address] Feb, [facility] [place] [facility] [address] [facility] [id number], [place] [address] 20 Jan, 2009 [facility] [facility] [address] [facility] [id number] [address] 16 Dec[facility] 2008 [facility] [address] [facility] [id number] [place] [address] Nov, [facility] [address] [facility] [id number] [address] Sep, [facility] [address] [facility] [id number] [address] August, [facility] [address] [facility] [id number] [address] May, [facility] [address] [facility] [id number] [address] Mar, IMMUNIZATIONS No Known Immunizations SOCIAL HISTORY Never Assessed REASON FOR VISIT [facility] [place] PLAN OF CARE VITAL SIGNS MEDICATIONS Unknown [...] Hospitalization History left foot swollen, stepped in [facility] 05/02/17 Hospitalization History [facility] 06/2018
--- OUTSIDE RECORDS SUMMARY | 2018-10-19 22:07 | XMS REPORT ---
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 Name Role Phone Migration, Doctor Unavailable Unavailable PROBLEMS Type Condition ICD9-CM Code WEF17-MD Code Onset Dates Condition Status SNOMED Code Problem Panic disorder with agoraphobia F40.01 Active 55196733 Problem COPD (chronic obstructive pulmonary disease) J44.9 Active 43999236 Problem Bipolar disease, chronic F31.9 Active 62055350 Problem Chronic pain G89.29 Active 95273538 Problem Degenerative joint disease M19.90 Active 238654768 Problem Morbid (severe) obesity due to excess calories E66.01 Active 31232365334678 Problem Body mass index (BMI) of 40.0-44.9 in adult Z68.41 Active 400494767 Problem Xanax use disorder, moderate F13.20 Active 315423439 Problem Opioid use disorder, moderate, dependence F11.20 Active 92242911 Problem Psychosis, unspecified psychosis type F29 Active 60896813 Problem Methamphetamine use disorder, severe, 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 Active 70078180 Problem Lumbago with sciatica, left side M54.42 Active 935460416 Problem Personality disorder F60.9 Active 27532991 Problem Other chronic pain G89.29 Active 14682979 Problem Lumbago with sciatica, right side M54.41 Active 165554382391064 Problem Depressive disorder, not elsewhere classified F32.9 Active 71688384 Problem Right sciatic nerve pain M54.31 Active 80335856 Problem 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 Active 034785328367399 Problem Nocturnal hypoxemia G47.34 Active 380936053 Problem Pre-diabetes R73.03 Active 973948243 Problem Bilateral carpal tunnel syndrome G56.03 Active 94890813 Problem Acquired hypothyroidism E03.9 Active 933323093 Problem Cigarette nicotine dependence without complication F17.210 Active 55237280 Problem Fibrocystic changes of left breast N60.12 Active 88814615 Problem Hypothyroidism (acquired) E03.9 Active 71847462 Problem Mood disorder F39 Active 64201196 Problem Nicotine withdrawal F17.203 Active 17990683 ALLERGIES No Information ENCOUNTERS Encounter Location Date Diagnosis [place] [address] [address] Jul, [place] [address] [address] Jul, Closed fracture of one rib of right side with routine healing, subsequent encounter S22.31XD [place] [address] [address] 14 Jun, 2018 Acute pain of right wrist M25.531 [place] [address] [address] Jun, High risk medication use Z79.899 ; Methamphetamine use disorder, severe, 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 ; Psychosis, unspecified psychosis type F29 ; Xanax use disorder, moderate F13.20 ; Personality disorder F60.9 ; Opioid use disorder, moderate, dependence F11.20 and Morbid obesity E66.01 [place] [address] [address] 14 May, 2018 Bilateral carpal tunnel syndrome G56.03 [place] [address] [address] Apr, [place] [address] [address] Apr, Bronchitis J40 [place] [address] [address] Apr, Nocturnal hypoxemia G47.34 and Acute pain of right wrist M25.531 [place] [address] [address] Apr, Bronchitis J40 and Hypothyroidism (acquired) E03.9 [facility] [address] [address] Mar, BMI 45.0-49.9, adult Z68.42 ; Right-sided chest wall pain R07.89 and Cough R05 [place] [address] [place] [id number] [place] [address] 14 Mar, 2018 [place] [address] [address] 13 Mar, 2018 Methamphetamine use disorder, severe, 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 ; Psychosis, unspecified psychosis type F29 ; Xanax use disorder, moderate F13.20 ; Personality disorder F60.9 ; Opioid use disorder, moderate, dependence F11.20 and BMI 45.0-49.9, adult Z68.42 [place] [address] [address] 07 Mar, 2018 Acquired hypothyroidism E03.9 [place] [address] [address] 06 Mar, 2018 Bronchitis J40 ; Costochondritis M94.0 ; Hypothyroidism (acquired) E03.9 ; Pre-diabetes R73.03 ; Acquired hypothyroidism E03.9 and BMI 45.0-49.9, adult Z68.42 [place] [address] [address] 12 Feb, 2018 Lumbago with sciatica, right side M54.41 [place] [address] [address] Feb, Acquired hypothyroidism E03.9 [place] [address] [address] Feb, Liver enzyme elevation R74.8 [place] [address] [place] [id number] [place] [address] 09 Feb, 2018 Mood disorder F39 ; Nicotine withdrawal F17.203 ; Liver enzyme elevation R74.8 ; Hypothyroidism (acquired) E03.9 and BMI 45.0-49.9, adult Z68.42 [place] [address] [address] Jan, Methamphetamine use disorder, severe, 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 ; Psychosis, unspecified psychosis type F29 ; Personality disorder F60.9 ; Opioid use disorder, moderate, dependence F11.20 ; Xanax use disorder, moderate F13.20 and BMI 45.0-49.9, adult Z68.42 [place] [address] [place] [id number] [place] [address] Jan, Liver enzyme elevation R74.8 and Hypothyroidism (acquired) E03.9 [place] [address] [address] 27 Dec, 2017 BMI 40.0-44.9, adult Z68.41 ; Chronic pain G89.29 ; Degenerative joint disease M19.90 and Pre-diabetes R73.03 [place] [address] [address] Dec, [place] [address] [address] Dec, Methamphetamine use disorder, severe, 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 ; Psychosis, unspecified psychosis type F29 ; Personality disorder F60.9 ; Opioid use disorder, moderate, dependence F11.20 ; Xanax use disorder, moderate F13.20 and BMI 45.0-49.9, adult Z68.42 [place] [address] [address] Dec, [place] [address] [address] Oct, Breast pain N64.4 ; Fibrocystic changes of left breast N60.12 and Bilateral otitis media with effusion H65.93 [facility] [address] [address] Sep, 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 [place] [address] [address] Sep, [place] [address] [address] Sep, Methamphetamine use disorder, severe, 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 ; Psychosis, unspecified psychosis type F29 ; Personality disorder F60.9 ; Opioid use disorder, moderate, dependence F11.20 ; Xanax use disorder, moderate F13.20 and BMI 40.0-44.9, adult Z68.41 [place] [address] [place] [id number] [place] [address] Sep, Depressive disorder, not elsewhere classified F32.9 and Psychosis, unspecified psychosis type F29 [place] [address] [address] August, [place] [address] [address] August, Depressive disorder, not elsewhere classified F32.9 and Psychosis, unspecified psychosis type F29 [place] [address] [address] August, [place] [address] [place] [id number] [place] [address] August, Lumbago with sciatica, right side M54.41 and Other chronic pain G89.29 [facility] [address] [place] [id number] [place] [address] Jul, Right sciatic nerve pain M54.31 [place] [address] [place] [id number] [place] [address] Jul, Acquired hypothyroidism E03.9 [facility] [address] [place] [id number] [place] [address] Jul, Depressive disorder, not elsewhere classified F32.9 and Psychosis, unspecified psychosis type F29 [place] [address] [place] [id number] [place] [address] Jul, Acquired hypothyroidism E03.9 ; Lumbago with sciatica, right side M54.41 and Lumbar radiculopathy, acute M54.16 [place] [id number] [place] [address] Jul, Methamphetamine use disorder, severe, 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 ; Psychosis, unspecified psychosis type F29 ; Personality disorder F60.9 ; Opioid use disorder, moderate, dependence F11.20 ; Xanax use disorder, moderate F13.20 and BMI 40.0-44.9, adult Z68.41 [place] [address] [place] [id number] [place] [address] Jun, Methamphetamine use disorder, severe, 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 ; Psychosis, unspecified psychosis type F29 ; Personality disorder F60.9 ; Opioid use disorder, moderate, dependence F11.20 and Xanax use disorder, moderate F13.20 [place] [id number] [place] [address] Jun, Depressive disorder, not elsewhere classified F32.9 and Psychosis, unspecified psychosis type F29 [place] [id number] [place] [address] Jun, Lumbar radiculopathy, acute M54.[address] [address] Jun, Lumbar radiculopathy, acute M54.16 ; Strain of abdominal wall, initial encounter S39.011A and BMI 40.0-44.9, adult Z68.41 [place] [id number] [place] [address] Jun, [place] [address] [place] [id number] [place] [address] May, [address] [address] May, Methamphetamine use disorder, severe, 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 ; Psychosis, unspecified psychosis type F29 ; Personality disorder F60.9 ; Opioid use disorder, moderate, dependence F11.20 and Xanax use disorder, moderate F13.20 [place] [address] [place] [id number] [place] [address] May, [place] [address] [address] May, [place] [address] [place] [id number] [place] [address] May, Lumbago with sciatica, left side M54.42 ; Lumbago with sciatica, right side M54.41 ; Other chronic pain G89.29 ; Weight gain R63.5 ; Acquired hypothyroidism E03.9 and BMI 40.0-44.9, adult Z68.41 [place] [address] [address] Apr, Cigarette nicotine dependence without complication F17.210 [place] [address] [address] Apr, Acute bilateral low back pain without sciatica M54.5 [place] [address] [place] [id number] [place] [address] Apr, Methamphetamine use disorder, severe, 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 ; Psychosis, unspecified psychosis type F29 ; Personality disorder F60.9 ; Opioid use disorder, moderate, dependence F11.20 and Xanax use disorder, moderate F13.20 [facility] [address] [place] [id number] [place] [address] Apr, Wheezing R06.2 and Bronchitis J40 [place] [address] [place] [id number] [place] [address] Apr, Bronchitis J40 ; Cigarette nicotine dependence without complication F17.210 and Bipolar disease, chronic F31.9 [place] [address] [place] [id number] [place] [address] Mar, Acquired hypothyroidism E03.9 [place] [address] [place] [id number] [place] [address] Mar, Acquired hypothyroidism E03.9 [place] [address] [place] [address] Mar, Orthostatic hypotension I95.1 and Non-intractable vomiting with nausea, unspecified vomiting type R11.[address] [place] [address] 14 Mar, 2017 Strain of lumbar region, initial encounter S39.012A [address] [address] Mar, [facility] [address] [place] [address] Mar, Bronchitis J40 [place] [id number] [place] [address] 05 Mar, 2017 Degenerative joint disease M19.90 ; Elevated LFTs R79.89 ; Adenopathy R59.1 ; Drug use F19.90 ; Pre-diabetes R73.03 and COPD (chronic obstructive pulmonary disease) J44.9 [facility] [address] [place] [id number] [place] [address] 30 Feb, 2017 Left hand pain M79.642 and Contusion of left hand, initial encounter S60.222A [place] [id number] [place] [address] Feb, Body aches R52 and Flu-like symptoms R68.89 [place] [address] [place] [id number] [place] [address] Jan, [place] [id number] [place] [address] Jan, Bipolar disease, chronic F31.9 ; Acquired hypothyroidism E03.9 and Encounter for immunization Z23 [facility] [address] [place] [id number] [place] [address] 05 Dec, 2016 Crushing injury of left wrist and hand, initial encounter S67.42XA [place] [id number] [place] [address] Sep, [address] [address] Sep, Bipolar disease, chronic F31.9 ; Panic disorder with agoraphobia F40.01 and Proteinuria, unspecified type R80.[address] [address] August, [place] [address] [address] August, Degenerative joint disease M19.90 ; Left-sided chest wall pain R07.89 ; Bipolar disease, chronic F31.9 ; Type 2 diabetes mellitus without complication, without long-term current use of insulin E11.9 ; Acquired hypothyroidism E03.9 and Acute cystitis without hematuria N30.[address] [address] Mar, [place] [address] [address] Feb, [facility] [address] [address] Feb, Right hand pain M79.641 [facility] [place] [id number] [place] [address] Feb, Bronchitis J40 ; Acute non-recurrent pansinusitis J01.40 and Seasonal allergic rhinitis due to other allergic trigger J30.89 [place] [id number] [place] [address] Dec, [facility] [address] [address] Mar, Left-sided chest wall pain R07.89 and Chronic pain G89.29 [place] [id number] [place] [address] Jul, [address] [place] [address] Jul, [facility] [place] [facility] [address] [id number] [place] [address] May, [facility] [place] [facility] [address] [id number] [place] [address] May, [facility] [place] [facility] [address] [id number] [place] [address] Apr, [facility] [place] [facility] [address] [id number] [place] [address] Apr, [facility] [place] [facility] [address] [id number] [place] [address] Mar, [facility] [place] [facility] [address] [id number] [place] [address] Mar, [facility] [place] [facility] [address] [id number] [place] [address] Feb, [facility] [place] [facility] [address] [id number] [place] [address] Feb, [facility] [place] [facility] [address] [id number] [place] [address] Jan, [facility] [place] [facility] [address] [id number] [place] [address] Jan, [facility] [place] [facility] [address] [id number] [place] [address] Jan, [facility] [place] [facility] [address] [id number] [place] [address] 28 Jan, 2014 [facility] [place] [facility] [address] [id number] [place] [address] Jan, [facility] [place] [facility] [address] [id number] [place] [address] 15 Jan, 2014 [facility] [place] [facility] [address] [id number] [place] [address] Dec, [facility] [place] [facility] [address] [id number] [place] [address] 19 Dec, 2013 [facility] [place] [facility] [address] [id number] [place] [address] 19 Dec, 2013 [facility] [place] [facility] [address] [id number] [place] [address] 19 Dec, 2013 [facility] [place] [facility] [address] [id number] [place] [address] 18 Dec, 2013 [facility] [place] [facility] [address] [id number] [place] [address] 18 Dec, 2013 [facility] [place] [facility] [address] [id number] [place] [address] 16 Dec, 2013 [facility] [place] [facility] [address] [id number] [place] [address] 16 Dec, 2013 [facility] [place] [facility] [address] [id number] [place] [address] 17 Sep, 2013 [facility] [place] [facility] [address] [id number] [place] [address] 17 Sep, 2013 [facility] [place] [facility] [address] [id number] [place] [address] 15 Jul, 2013 [facility] [place] [facility] [address] [id number] [place] [address] 15 Jul, 2013 [facility] [place] [facility] [address] [id number] [address] 10 Jul, 2013 [facility] [place] [facility] [address] [id number] [place] [address] 10 Jul, 2013 [facility] [place] [facility] [address] [id number] [place] [address] 03 Jul, 2013 [facility] [place] [facility] [address] [id number] [place] [address] 03 Jul, 2013 [facility] [place] [facility] [address] [id number] [place] [address] Jul, [facility] [place] [facility] [address] [id number] [place] [address] Jul, [facility] [place] [facility] [address] [id number] [place] [address] Jun, [facility] [place] [facility] [address] [id number] [place] [address] Jun, [facility] [place] [facility] [address] [id number] [place] [address] May, [facility] [place] [facility] [address] [id number] [place] [address] May, [facility] [place] [facility] [address] [id number] [place] [address] May, [facility] [place] [facility] [address] [id number] [place] [address] May, [facility] [place] [facility] [address] [id number] [place] [address] Apr, [facility] [place] [facility] [address] [id number] [place] [address] Apr, [facility] [place] [facility] [address] [facility] [id number] [place] [address] Mar, [facility] [place] [facility] [address] [id number] [place] [address] Mar, [facility] [place] [facility] [address] [id number] [place] [address] Feb, [facility] [place] [facility] [address] [id number] [place] [address] Feb, [facility] [place] [facility] [address] [facility] [id number] [place] [address] Feb, [facility] [place] [facility] [address] [id number] [place] [address] Feb, [facility] [place] [facility] [address] [id number] [place] [address] Jan, [facility] [place] [facility] [address] [id number] [place] [address] Jan, [facility] [place] [facility] [address] [id number] [place] [address] Jan, [facility] [place] [facility] [address] [id number] [place] [address] Jan, [facility] [address] [id number] [place] [address] Jan, [facility] [place] [facility] [address] [id number] [place] [address] Dec, [facility] [place] [facility] [address] [id number] [place] [address] Dec, [facility] [place] [facility] [address] [id number] [place] [address] Nov, [facility] [place] [facility] [address] [id number] [place] [address] Sep, [facility] [place] [facility] [address] [id number] [place] [address] August, [facility] [place] [facility] [address] [id number] [place] [address] August, [facility] [place] [facility] [address] [id number] [place] [address] Jul, [facility] [place] [facility] [address] [id number] [place] [address] Jul, [facility] [place] [facility] [address] [id number] [place] [address] Jul, [facility] [place] [facility] [address] [id number] [place] [address] Jul, [facility] [place] [facility] [address] [id number] [place] [address] Jul, [facility] [address] [id number] [place] [address] Jul, [facility] [place] [facility] [address] [id number] [place] [address] Jul, [facility] [place] [facility] [address] [facility] [id number] [place] [address] Jun, [facility] [place] [facility] [address] [id number] [place] [address] Jun, [facility] [place] [facility] [address] [id number] [place] [address] May, [facility] [place] [facility] [address] [id number] [place] [address] Apr, [facility] [address] [facility] [id number] [place] [address] Apr, [facility] [place] [facility] [address] [id number] [place] [address] Mar, [facility] [address] [facility] [id number] [place] [address] Mar, [facility] [place] [facility] [address] [facility] [id number] [place] [address] Mar, [facility] [place] [facility] [address] [id number] [place] [address] Feb, [facility] [place] [facility] [address] [id number] [place] [address] Feb, [facility] [place] [facility] [address] [id number] [place] [address] Feb, [facility] [place] [facility] [address] [id number] [place] [address] Feb, [facility] [place] [facility] [address] [facility] [id number] [place] [address] Feb, [facility] [place] [facility] [address] [id number] [place] [address] 19 Feb, 2012 [facility] [place] [facility] [address] [id number] [place] [address] 16 Feb, 2012 [facility] [place] [facility] [address] [id number] [place] [address] 16 Feb, 2012 [facility] [place] [facility] [address] [id number] [place] [address] 14 Feb, 2012 [facility] [place] [facility] [address] [id number] [place] [address] 08 Feb, 2012 [facility] [place] [facility] [address] [id number] [place] [address] 08 Feb, 2012 [facility] [place] [facility] [address] [id number] [place] [address] 27 Dec, 2011 [facility] [place] [facility] [address] [id number] [place] [address] 07 Dec, 2011 [facility] [place] [facility] [address] [id number] [place] [address] 30 Nov, 2011 [facility] [place] [facility] [address] [id number] [place] [address] Nov, [facility] [place] [facility] [address] [facility] [id number] [place] [address] Oct, [facility] [place] [facility] [address] [id number] [place] [address] Oct, [facility] [place] [facility] [address] [id number] [place] [address] 14 Sep, 2011 [facility] [place] [facility] [address] [id number] [place] [address] 28 May, 2011 [facility] [place] [facility] [address] [id number] [place] [address] 15 May, 2011 [facility] [place] [facility] [address] [id number] [place] [address] May, [facility] [place] [facility] [address] [id number] [place] [address] Apr, [facility] [place] [facility] [address] [id number] [place] [address] Mar, [facility] [place] [facility] [address] [facility] [id number] [place] [address] Mar, [facility] [place] [facility] [address] [id number] [place] [address] Feb, [facility] [place] [facility] [address] [id number] [place] [address] Feb, [facility] [place] [facility] [address] [facility] [id number] [place] [address] Feb, [facility] [place] [facility] [address] [facility] [id number] [place] [address] Jan, [facility] [place] [facility] [address] [id number] [place] [address] Jan, [facility] [place] [facility] [address] [facility] [id number] [place] [address] Dec, [facility] [place] [facility] [address] [facility] [id number] [place] [address] Mar, [facility] [place] [facility] [address] [id number] [place] [address] Feb, [facility] [place] [facility] [address] [id number] [place] [address] 10 Feb, 2009 [facility] [place] [facility] [address] [id number] [place] [address] Feb, [facility] [place] [facility] [address] [facility] [id number] [place] [address] 20 Jan, 2009 [facility] [place] [facility] [address] [facility] [id number] [place] [address] 16 Dec, 2008 [facility] [place] [facility] [address] [facility] [id number] [place] [address] Nov, [facility] [address] [facility] [id number] [place] [address] Sep, [facility] [address] [facility] [id number] [place] [address] August, [facility] [address] [facility] [id number] [place] [address] May, [facility] [address] [facility] [id number] [address] Mar, IMMUNIZATIONS No Known Immunizations SOCIAL HISTORY Never Assessed REASON FOR VISIT [facility] [place] PLAN OF CARE VITAL SIGNS MEDICATIONS Unknown [...] left foot swollen, stepped in [facility] 05/02/17 Hospitalization History [facility] 06/2018
--- OUTSIDE RECORDS SUMMARY | 2018-10-19 22:08 | XMS REPORT ---
Author Author Migration, Doctor Organization [facility] Address Unknown Phone Unavailable Care Team Providers Care Sales Department Manager Name Role Phone Migration, Doctor Unavailable Unavailable PROBLEMS Type Condition ICD9-CM Code ZWB67-HR Code Onset Dates Condition Status SNOMED Code Problem Panic disorder with agoraphobia F40.01 Active 22150234 Problem COPD (chronic obstructive pulmonary disease) J44.9 Active 37475764 Problem Bipolar disease, chronic F31.9 Active 43913545 Problem Chronic pain G89.29 Active 25249389 Problem Degenerative joint disease M19.90 Active 133075678 Problem Morbid (severe) obesity due to excess calories E66.01 Active 24992061215480 Problem Body mass index (BMI) of 40.0-44.9 in adult Z68.41 Active 888374702 Problem Xanax use disorder, moderate F13.20 Active 949521297 Problem Opioid use disorder, moderate, dependence F11.20 Active 09816182 Problem Psychosis, unspecified psychosis type F29 Active 08406944 Problem Methamphetamine use disorder, severe, 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 Active 52156261 Problem Lumbago with sciatica, left side M54.42 Active 971525102 Problem Personality disorder F60.9 Active 42629910 Problem Other chronic pain G89.29 Active 24064058 Problem Lumbago with sciatica, right side M54.41 Active [id number] Problem Depressive disorder, not elsewhere classified F32.9 Active 66272219 Problem Right sciatic nerve pain M54.31 Active 16235953 Problem 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 Active 708051088670819 Problem Nocturnal hypoxemia G47.34 Active 955016061 Problem Pre-diabetes R73.03 Active 801161579 Problem Bilateral carpal tunnel syndrome G56.03 Active 91577686 Problem Acquired hypothyroidism E03.9 Active 125925112 Problem Cigarette nicotine dependence without complication F17.210 Active 90241936 Problem Fibrocystic changes of left breast N60.12 Active 39360193 Problem Hypothyroidism (acquired) E03.9 Active 54666250 Problem Mood disorder F39 Active 29184110 Problem Nicotine withdrawal F17.203 Active 62156802 ALLERGIES No Information ENCOUNTERS Encounter Location Date Diagnosis [place] [address] [address] Jul, [place] [address] [address] Jul, Closed fracture of one rib of right side with routine healing, subsequent encounter S22.31XD [place] [address] [address] 14 Jun, 2018 Acute pain of right wrist M25.531 [place] [address] [address] Jun, High risk medication use Z79.899 ; Methamphetamine use disorder, severe, 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 ; Psychosis, unspecified psychosis type F29 ; Xanax use disorder, moderate F13.20 ; Personality disorder F60.9 ; Opioid use disorder, moderate, dependence F11.20 and Morbid obesity E66.01 [place] [address] [address] 14 May, 2018 Bilateral carpal tunnel syndrome G56.03 [place] [address] [address] Apr, [place] [address] [address] Apr, Bronchitis J40 [place] [address] [address] Apr, Nocturnal hypoxemia G47.34 and Acute pain of right wrist M25.531 [place] [address] [address] Apr, Bronchitis J40 and Hypothyroidism (acquired) E03.9 [facility] [address] [address] Mar, BMI 45.0-49.9, adult Z68.42 ; Right-sided chest wall pain R07.89 and Cough R05 [place] [address] [place] [id number] [place] [address] 14 Mar, 2018 [place] [address] [address] 13 Mar, 2018 Methamphetamine use disorder, severe, 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 ; Psychosis, unspecified psychosis type F29 ; Xanax use disorder, moderate F13.20 ; Personality disorder F60.9 ; Opioid use disorder, moderate, dependence F11.20 and BMI 45.0-49.9, adult Z68.42 [place] [address] [address] 07 Mar, 2018 Acquired hypothyroidism E03.9 [place] [address] [address] 06 Mar, 2018 Bronchitis J40 ; Costochondritis M94.0 ; Hypothyroidism (acquired) E03.9 ; Pre-diabetes R73.03 ; Acquired hypothyroidism E03.9 and BMI 45.0-49.9, adult Z68.42 [place] [address] [address] 12 Feb, 2018 Lumbago with sciatica, right side M54.41 [place] [address] [address] Feb, Acquired hypothyroidism E03.9 [place] [address] [address] Feb, Liver enzyme elevation R74.8 [place] [address] [place] [id number] [place] [address] 09 Feb, 2018 Mood disorder F39 ; Nicotine withdrawal F17.203 ; Liver enzyme elevation R74.8 ; Hypothyroidism (acquired) E03.9 and BMI 45.0-49.9, adult Z68.42 [place] [address] [address] Jan, Methamphetamine use disorder, severe, 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 ; Psychosis, unspecified psychosis type F29 ; Personality disorder F60.9 ; Opioid use disorder, moderate, dependence F11.20 ; Xanax use disorder, moderate F13.20 and BMI 45.0-49.9, adult Z68.42 [place] [address] [place] [id number] [place] [address] Jan, Liver enzyme elevation R74.8 and Hypothyroidism (acquired) E03.9 [place] [address] [address] 27 Dec, 2017 BMI 40.0-44.9, adult Z68.41 ; Chronic pain G89.29 ; Degenerative joint disease M19.90 and Pre-diabetes R73.03 [place] [address] [address] Dec, [place] [address] [address] Dec, Methamphetamine use disorder, severe, 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 ; Psychosis, unspecified psychosis type F29 ; Personality disorder F60.9 ; Opioid use disorder, moderate, dependence F11.20 ; Xanax use disorder, moderate F13.20 and BMI 45.0-49.9, adult Z68.42 [place] [address] [address] Dec, [place] [address] [address] Oct, Breast pain N64.4 ; Fibrocystic changes of left breast N60.12 and Bilateral otitis media with effusion H65.93 [facility] [address] [address] Sep, 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 [place] [address] [address] Sep, [place] [address] [address] Sep, Methamphetamine use disorder, severe, 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 ; Psychosis, unspecified psychosis type F29 ; Personality disorder F60.9 ; Opioid use disorder, moderate, dependence F11.20 ; Xanax use disorder, moderate F13.20 and BMI 40.0-44.9, adult Z68.41 [place] [address] [place] [id number] [place] [address] Sep, Depressive disorder, not elsewhere classified F32.9 and Psychosis, unspecified psychosis type F29 [place] [address] [address] August, [place] [address] [address] August, Depressive disorder, not elsewhere classified F32.9 and Psychosis, unspecified psychosis type F29 [place] [address] [address] August, [place] [address] [place] [id number] [place] [address] August, Lumbago with sciatica, right side M54.41 and Other chronic pain G89.29 [facility] [address] [place] [id number] [place] [address] Jul, Right sciatic nerve pain M54.31 [place] [address] [place] [id number] [place] [address] Jul, Acquired hypothyroidism E03.9 [facility] [address] [place] [id number] [place] [address] Jul, Depressive disorder, not elsewhere classified F32.9 and Psychosis, unspecified psychosis type F29 [place] [address] [place] [id number] [place] [address] Jul, Acquired hypothyroidism E03.9 ; Lumbago with sciatica, right side M54.41 and Lumbar radiculopathy, acute M54.16 [place] [address] [place] [address] Jul, Methamphetamine use disorder, severe, 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 ; Psychosis, unspecified psychosis type F29 ; Personality disorder F60.9 ; Opioid use disorder, moderate, dependence F11.20 ; Xanax use disorder, moderate F13.20 and BMI 40.0-44.9, adult Z68.41 [place] [address] [place] [id number] [place] [address] Jun, Methamphetamine use disorder, severe, 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 ; Psychosis, unspecified psychosis type F29 ; Personality disorder F60.9 ; Opioid use disorder, moderate, dependence F11.20 and Xanax use disorder, moderate F13.20 [place] [id number] [place] [address] Jun, Depressive disorder, not elsewhere classified F32.9 and Psychosis, unspecified psychosis type F29 [place] [id number] [place] [address] Jun, Lumbar radiculopathy, acute M54.[address] [address] Jun, Lumbar radiculopathy, acute M54.16 ; Strain of abdominal wall, initial encounter S39.011A and BMI 40.0-44.9, adult Z68.41 [place] [id number] [place] [address] Jun, [place] [address] [place] [id number] [place] [address] May, [address] [address] May, Methamphetamine use disorder, severe, 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 ; Psychosis, unspecified psychosis type F29 ; Personality disorder F60.9 ; Opioid use disorder, moderate, dependence F11.20 and Xanax use disorder, moderate F13.20 [place] [address] [place] [id number] [place] [address] May, [place] [address] [address] May, [place] [address] [place] [id number] [place] [address] May, Lumbago with sciatica, left side M54.42 ; Lumbago with sciatica, right side M54.41 ; Other chronic pain G89.29 ; Weight gain R63.5 ; Acquired hypothyroidism E03.9 and BMI 40.0-44.9, adult Z68.41 [place] [address] [address] Apr, Cigarette nicotine dependence without complication F17.210 [place] [address] [address] Apr, Acute bilateral low back pain without sciatica M54.5 [place] [address] [place] [id number] [place] [address] Apr, Methamphetamine use disorder, severe, 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 ; Psychosis, unspecified psychosis type F29 ; Personality disorder F60.9 ; Opioid use disorder, moderate, dependence F11.20 and Xanax use disorder, moderate F13.20 [facility] [address] [place] [id number] [place] [address] Apr, Wheezing R06.2 and Bronchitis J40 [place] [address] [place] [id number] [place] [address] Apr, Bronchitis J40 ; Cigarette nicotine dependence without complication F17.210 and Bipolar disease, chronic F31.9 [place] [address] [place] [id number] [place] [address] Mar, Acquired hypothyroidism E03.9 [place] [address] [place] [id number] [place] [address] Mar, Acquired hypothyroidism E03.9 [place] [address] [place] [address] Mar, Orthostatic hypotension I95.1 and Non-intractable vomiting with nausea, unspecified vomiting type R11.[address] [place] [address] 14 Mar, 2017 Strain of lumbar region, initial encounter S39.012A [address] [address] Mar, [facility] [address] [place] [address] Mar, Bronchitis J40 [place] [id number] [place] [address] 05 Mar, 2017 Degenerative joint disease M19.90 ; Elevated LFTs R79.89 ; Adenopathy R59.1 ; Drug use F19.90 ; Pre-diabetes R73.03 and COPD (chronic obstructive pulmonary disease) J44.9 [facility] [address] [place] [id number] [place] [address] 30 Feb, 2017 Left hand pain M79.642 and Contusion of left hand, initial encounter S60.222A [place] [id number] [place] [address] Feb, Body aches R52 and Flu-like symptoms R68.89 [place] [address] [place] [id number] [place] [address] Jan, [place] [id number] [place] [address] Jan, Bipolar disease, chronic F31.9 ; Acquired hypothyroidism E03.9 and Encounter for immunization Z23 [facility] [address] [place] [id number] [place] [address] 05 Dec, 2016 Crushing injury of left wrist and hand, initial encounter S67.42XA [place] [id number] [place] [address] Sep, [address] [address] Sep, Bipolar disease, chronic F31.9 ; Panic disorder with agoraphobia F40.01 and Proteinuria, unspecified type R80.[address] [address] August, [place] [address] [address] August, Degenerative joint disease M19.90 ; Left-sided chest wall pain R07.89 ; Bipolar disease, chronic F31.9 ; Type 2 diabetes mellitus without complication, without long-term current use of insulin E11.9 ; Acquired hypothyroidism E03.9 and Acute cystitis without hematuria N30.[address] [address] Mar, [place] [address] [address] Feb, [facility] [address] [address] Feb, Right hand pain M79.641 [facility] [place] [id number] [place] [address] Feb, Bronchitis J40 ; Acute non-recurrent pansinusitis J01.40 and Seasonal allergic rhinitis due to other allergic trigger J30.89 [place] [id number] [place] [address] Dec, [facility] [address] [address] Mar, Left-sided chest wall pain R07.89 and Chronic pain G89.29 [place] [id number] [place] [address] Jul, [address] [place] [address] Jul, [facility] [place] [facility] [address] [id number] [place] [address] May, [facility] [place] [facility] [address] [id number] [place] [address] May, [facility] [place] [facility] [address] [id number] [place] [address] Apr, [facility] [place] [facility] [address] [id number] [place] [address] Apr, [facility] [place] [facility] [address] [id number] [place] [address] Mar, [facility] [place] [facility] [address] [id number] [place] [address] Mar, [facility] [place] [facility] [address] [id number] [place] [address] Feb, [facility] [place] [facility] [address] [id number] [place] [address] Feb, [facility] [place] [facility] [address] [id number] [place] [address] Jan, [facility] [place] [facility] [address] [id number] [place] [address] Jan, [facility] [place] [facility] [address] [id number] [place] [address] Jan, [facility] [place] [facility] [address] [id number] [place] [address] 28 Jan, 2014 [facility] [place] [facility] [address] [id number] [place] [address] Jan, [facility] [place] [facility] [address] [id number] [place] [address] 15 Jan, 2014 [facility] [place] [facility] [address] [id number] [place] [address] Dec, [facility] [place] [facility] [address] [id number] [place] [address] 19 Dec, 2013 [facility] [place] [facility] [address] [id number] [place] [address] 19 Dec, 2013 [facility] [place] [facility] [address] [id number] [place] [address] 19 Dec, 2013 [facility] [place] [facility] [address] [id number] [place] [address] 18 Dec, 2013 [facility] [place] [facility] [address] [id number] [place] [address] 18 Dec, 2013 [facility] [place] [facility] [address] [id number] [place] [address] 16 Dec, 2013 [facility] [place] [facility] [address] [id number] [place] [address] 16 Dec, 2013 [facility] [place] [facility] [address] [id number] [place] [address] 17 Sep, 2013 [facility] [place] [facility] [address] [id number] [place] [address] 17 Sep, 2013 [facility] [place] [facility] [address] [id number] [place] [address] 15 Jul, 2013 [facility] [place] [facility] [address] [id number] [place] [address] 15 Jul, 2013 [facility] [place] [facility] [address] [id number] [address] 10 Jul, 2013 [facility] [place] [facility] [address] [id number] [place] [address] 10 Jul, 2013 [facility] [place] [facility] [address] [id number] [place] [address] 03 Jul, 2013 [facility] [place] [facility] [address] [id number] [place] [address] 03 Jul, 2013 [facility] [place] [facility] [address] [id number] [place] [address] Jul, [facility] [place] [facility] [address] [id number] [place] [address] Jul, [facility] [place] [facility] [address] [id number] [place] [address] Jun, [facility] [place] [facility] [address] [id number] [place] [address] Jun, [facility] [place] [facility] [address] [id number] [place] [address] May, [facility] [place] [facility] [address] [id number] [place] [address] May, [facility] [place] [facility] [address] [id number] [place] [address] May, [facility] [place] [facility] [address] [id number] [place] [address] May, [facility] [place] [facility] [address] [id number] [place] [address] Apr, [facility] [place] [facility] [address] [id number] [place] [address] Apr, [facility] [place] [facility] [address] [facility] [id number] [place] [address] Mar, [facility] [place] [facility] [address] [id number] [place] [address] Mar, [facility] [place] [facility] [address] [id number] [place] [address] Feb, [facility] [place] [facility] [address] [id number] [place] [address] Feb, [facility] [place] [facility] [address] [facility] [id number] [place] [address] Feb, [facility] [place] [facility] [address] [id number] [place] [address] Feb, [facility] [place] [facility] [address] [id number] [place] [address] Jan, [facility] [place] [facility] [address] [id number] [place] [address] Jan, [facility] [place] [facility] [address] [id number] [place] [address] Jan, [facility] [place] [facility] [address] [id number] [place] [address] Jan, [facility] [address] [id number] [place] [address] Jan, [facility] [place] [facility] [address] [id number] [place] [address] Dec, [facility] [place] [facility] [address] [id number] [place] [address] Dec, [facility] [place] [facility] [address] [id number] [place] [address] Nov, [facility] [place] [facility] [address] [id number] [place] [address] Sep, [facility] [place] [facility] [address] [id number] [address] August, [facility] [place] [facility] [address] [id number] [place] [address] August, [facility] [place] [facility] [address] [id number] [address] Jul, [facility] [place] [facility] [address] [id number] [place] [address] Jul, [facility] [place] [facility] [address] [id number] [address] Jul, [facility] [place] [facility] [address] [id number] [address] Jul, [facility] [place] [facility] [address] [id number] [address] Jul, [facility] [address] [id number] [place] [address] Jul, [facility] [place] [facility] [address] [id number] [place] [address] Jul, [facility] [place] [facility] [address] [facility] [id number] [place] [address] Jun, [facility] [place] [facility] [address] [id number] [place] [address] Jun, [facility] [place] [facility] [address] [id number] [place] [address] May, [facility] [place] [facility] [address] [id number] [place] [address] Apr, [facility] [address] [facility] [id number] [place] [address] Apr, [facility] [place] [facility] [address] [id number] [place] [address] Mar, [facility] [address] [facility] [id number] [place] [address] Mar, [facility] [place] [facility] [address] [facility] [id number] [place] [address] Mar, [facility] [place] [facility] [address] [id number] [place] [address] Feb, [facility] [place] [facility] [address] [id number] [place] [address] Feb, [facility] [place] [facility] [address] [id number] [place] [address] Feb, [facility] [place] [facility] [address] [id number] [place] [address] Feb, [facility] [place] [facility] [address] [facility] [id number] [place] [address] Feb, [facility] [place] [facility] [address] [id number] [place] [address] 19 Feb, 2012 [facility] [place] [facility] [address] [id number] [place] [address] 16 Feb, 2012 [facility] [place] [facility] [address] [id number] [place] [address] 16 Feb, 2012 [facility] [place] [facility] [address] [id number] [place] [address] 14 Feb, 2012 [facility] [place] [facility] [address] [id number] [place] [address] 08 Feb, 2012 [facility] [place] [facility] [address] [id number] [place] [address] 08 Feb, 2012 [facility] [place] [facility] [address] [id number] [place] [address] 27 Dec, 2011 [facility] [place] [facility] [address] [id number] [place] [address] 07 Dec, 2011 [facility] [place] [facility] [address] [id number] [place] [address] 30 Nov, 2011 [facility] [place] [facility] [address] [id number] [place] [address] Nov, [facility] [place] [facility] [address] [facility] [id number] [place] [address] Oct, [facility] [place] [facility] [address] [id number] [place] [address] Oct, [facility] [place] [facility] [address] [id number] [place] [address] 14 Sep, 2011 [facility] [place] [facility] [address] [id number] [place] [address] 28 May, 2011 [facility] [place] [facility] [address] [id number] [place] [address] 15 May, 2011 [facility] [place] [facility] [address] [id number] [place] [address] May, [facility] [place] [facility] [address] [id number] [place] [address] Apr, [facility] [place] [facility] [address] [id number] [address] Mar, [facility] [place] [facility] [address] [facility] [id number] [place] [address] Mar, [facility] [place] [facility] [address] [id number] [address] Feb, [facility] [place] [facility] [address] [id number] [place] [address] Feb, [facility] [place] [facility] [address] [facility] [id number] [address] Feb, [facility] [place] [facility] [address] [facility] [id number] [place] [address] Jan, [facility] [place] [facility] [address] [id number] [place] [address] Jan, [facility] [place] [facility] [address] [facility] [id number] [place] [address] Dec, [facility] [place] [facility] [address] [facility] [id number] [address] Mar, [facility] [place] [facility] [address] [id number] [place] [address] Feb, [facility] [place] [facility] [address] [id number] [place] [address] 10 Feb, 2009 [facility] [place] [facility] [address] [id number] [place] [address] Feb, [facility] [place] [facility] [address] [facility] [id number] [place] [address] 20 Jan, 2009 [facility] [place] [facility] [address] [facility] [id number] [address] 16 Dec, 2008 [facility] [address] [facility] [id number] [place] [address] Nov, [facility] [address] [facility] [id number] [place] [address] Sep, [facility] [address] [facility] [id number] [place] [address] August, [facility] [address] [facility] [id number] [place] [address] May, [facility] [address] [facility] [id number] [place] [address] Mar, IMMUNIZATIONS No Known Immunizations SOCIAL HISTORY Never Assessed REASON FOR VISIT [facility] VITAL SIGNS MEDICATIONS Medication Instructions Dosage Frequency Start Date End Date Duration Status Lamictal 25 mg 1 Tablet by Oral route 1 time per day for 14 days then increase to two tablets daily for mood. Dec, Active amitriptyline 25 mg 1-2 tablet by Oral route 1 time per day At hs Dec, Active levothyroxine 50 mcg take 1 tablet (50 mcg) by oral route once daily Feb, Active Fluoxetine 40 mg 1 capsule by Oral route 1 time per day for depression and panic Dec, Active Ventolin HFA 90 mcg/actuation inhale 2 puff by Inhalation route as needed every 4 hours for breathing Mar, Active Naproxen 500 mg take 1 tablet by Oral route 2 times per day with food for pain Mar, Active cyclobenzaprine 10 mg 1 Tablet by Oral route 3 times per day PRN Feb, Active Doxycycline Hyclate 100 mg take 1 tablet (100 mg) by oral route 2 times per day for 10 days Apr, Active Flonase 50 mcg/actuation 1 sprays by Nasal route 2 times per day in each nostril Jul, Active RESULTS No Results PROCEDURES No Known [...] suicide ideat and attempts. [facility] [place], [place] last around 2006 Hospitalization History left foot swollen, stepped in [facility] 05/02/17 Hospitalization History [facility] 06/2018
--- OUTSIDE RECORDS SUMMARY | 2018-10-19 22:08 | XMS REPORT ---
Author Author Migration, Doctor Organization [facility] Address Unknown Phone Unavailable Care Team Providers Care Regional Program Manager Name Role Phone Migration, Doctor Unavailable Unavailable PROBLEMS Type Condition ICD9-CM Code RSR80-OW Code Onset Dates Condition Status SNOMED Code Problem Panic disorder with agoraphobia F40.01 Active 91375930 Problem COPD (chronic obstructive pulmonary disease) J44.9 Active 78053485 Problem Bipolar disease, chronic F31.9 Active 47939997 Problem Chronic pain G89.29 Active 91475696 Problem Degenerative joint disease M19.90 Active 597440711 Problem Morbid (severe) obesity due to excess calories E66.01 Active 73481530649232 Problem Body mass index (BMI) of 40.0-44.9 in adult Z68.41 Active 645318813 Problem Xanax use disorder, moderate F13.20 Active 518052864 Problem Opioid use disorder, moderate, dependence F11.20 Active 58530623 Problem Psychosis, unspecified psychosis type F29 Active 95999139 Problem Methamphetamine use disorder, severe, 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 Active 87914363 Problem Lumbago with sciatica, left side M54.42 Active 178809051 Problem Personality disorder F60.9 Active 44636885 Problem Other chronic pain G89.29 Active 94806650 Problem Lumbago with sciatica, right side M54.41 Active 449612513641698 Problem Depressive disorder, not elsewhere classified F32.9 Active 95113252 Problem Right sciatic nerve pain M54.31 Active 88108940 Problem 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 Active 587163655970578 Problem Nocturnal hypoxemia G47.34 Active 915715227 Problem Pre-diabetes R73.03 Active 493926495 Problem Bilateral carpal tunnel syndrome G56.03 Active 69978592 Problem Acquired hypothyroidism E03.9 Active 247601192 Problem Cigarette nicotine dependence without complication F17.210 Active 20858034 Problem Fibrocystic changes of left breast N60.12 Active 27063805 Problem Hypothyroidism (acquired) E03.9 Active 83499023 Problem Mood disorder F39 Active 74954917 Problem Nicotine withdrawal F17.203 Active 88419059 ALLERGIES No Information ENCOUNTERS Encounter Location Date Diagnosis [place] [address] [address] Jul, [place] [address] [address] Jul, Closed fracture of one rib of right side with routine healing, subsequent encounter S22.31XD [place] [address] [address] 14 Jun, 2018 Acute pain of right wrist M25.531 [place] [address] [address] Jun, High risk medication use Z79.899 ; Methamphetamine use disorder, severe, 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 ; Psychosis, unspecified psychosis type F29 ; Xanax use disorder, moderate F13.20 ; Personality disorder F60.9 ; Opioid use disorder, moderate, dependence F11.20 and Morbid obesity E66.01 [place] [address] [address] 14 May, 2018 Bilateral carpal tunnel syndrome G56.03 [place] [address] [address] Apr, [place] [address] [address] Apr, Bronchitis J40 [place] [address] [address] Apr, Nocturnal hypoxemia G47.34 and Acute pain of right wrist M25.531 [place] [address] [address] Apr, Bronchitis J40 and Hypothyroidism (acquired) E03.9 [facility] [address] [address] Mar, BMI 45.0-49.9, adult Z68.42 ; Right-sided chest wall pain R07.89 and Cough R05 [place] [address] [place] [id number] [place] [address] 14 Mar, 2018 [place] [address] [address] 13 Mar, 2018 Methamphetamine use disorder, severe, 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 ; Psychosis, unspecified psychosis type F29 ; Xanax use disorder, moderate F13.20 ; Personality disorder F60.9 ; Opioid use disorder, moderate, dependence F11.20 and BMI 45.0-49.9, adult Z68.42 [place] [address] [address] 07 Mar, 2018 Acquired hypothyroidism E03.9 [place] [address] [address] 06 Mar, 2018 Bronchitis J40 ; Costochondritis M94.0 ; Hypothyroidism (acquired) E03.9 ; Pre-diabetes R73.03 ; Acquired hypothyroidism E03.9 and BMI 45.0-49.9, adult Z68.42 [place] [address] [address] 12 Feb, 2018 Lumbago with sciatica, right side M54.41 [place] [address] [address] Feb, Acquired hypothyroidism E03.9 [place] [address] [address] Feb, Liver enzyme elevation R74.8 [place] [address] [place] [id number] [place] [address] 09 Feb, 2018 Mood disorder F39 ; Nicotine withdrawal F17.203 ; Liver enzyme elevation R74.8 ; Hypothyroidism (acquired) E03.9 and BMI 45.0-49.9, adult Z68.42 [place] [address] [address] Jan, Methamphetamine use disorder, severe, 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 ; Psychosis, unspecified psychosis type F29 ; Personality disorder F60.9 ; Opioid use disorder, moderate, dependence F11.20 ; Xanax use disorder, moderate F13.20 and BMI 45.0-49.9, adult Z68.42 [place] [address] [place] [id number] [place] [address] Jan, Liver enzyme elevation R74.8 and Hypothyroidism (acquired) E03.9 [place] [address] [address] 27 Dec, 2017 BMI 40.0-44.9, adult Z68.41 ; Chronic pain G89.29 ; Degenerative joint disease M19.90 and Pre-diabetes R73.03 [place] [address] [address] Dec, [place] [address] [address] Dec, Methamphetamine use disorder, severe, 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 ; Psychosis, unspecified psychosis type F29 ; Personality disorder F60.9 ; Opioid use disorder, moderate, dependence F11.20 ; Xanax use disorder, moderate F13.20 and BMI 45.0-49.9, adult Z68.42 [place] [address] [address] Dec, [place] [address] [address] Oct, Breast pain N64.4 ; Fibrocystic changes of left breast N60.12 and Bilateral otitis media with effusion H65.93 [facility] [address] [address] Sep, 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 [place] [address] [address] Sep, [place] [address] [address] Sep, Methamphetamine use disorder, severe, 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 ; Psychosis, unspecified psychosis type F29 ; Personality disorder F60.9 ; Opioid use disorder, moderate, dependence F11.20 ; Xanax use disorder, moderate F13.20 and BMI 40.0-44.9, adult Z68.41 [place] [address] [place] [id number] [place] [address] Sep, Depressive disorder, not elsewhere classified F32.9 and Psychosis, unspecified psychosis type F29 [place] [address] [address] August, [place] [address] [address] August, Depressive disorder, not elsewhere classified F32.9 and Psychosis, unspecified psychosis type F29 [place] [address] [address] August, [place] [address] [place] [id number] [place] [address] August, Lumbago with sciatica, right side M54.41 and Other chronic pain G89.29 [facility] [address] [place] [id number] [place] [address] Jul, Right sciatic nerve pain M54.31 [place] [address] [place] [id number] [place] [address] Jul, Acquired hypothyroidism E03.9 [facility] [address] [place] [id number] [place] [address] Jul, Depressive disorder, not elsewhere classified F32.9 and Psychosis, unspecified psychosis type F29 [place] [address] [place] [id number] [place] [address] Jul, Acquired hypothyroidism E03.9 ; Lumbago with sciatica, right side M54.41 and Lumbar radiculopathy, acute M54.16 [place] [id number] [place] [address] Jul, Methamphetamine use disorder, severe, 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 ; Psychosis, unspecified psychosis type F29 ; Personality disorder F60.9 ; Opioid use disorder, moderate, dependence F11.20 ; Xanax use disorder, moderate F13.20 and BMI 40.0-44.9, adult Z68.41 [place] [address] [place] [id number] [place] [address] Jun, Methamphetamine use disorder, severe, 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41 [place] [id number] [place] [address] Jun, [place] [address] [place] [id number] [place] [address] May, [address] [address] May, Methamphetamine use disorder, severe, 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 ; Psychosis, unspecified psychosis type F29 ; Personality disorder F60.9 ; Opioid use disorder, moderate, dependence F11.20 and Xanax use disorder, moderate F13.20 [place] [address] [place] [id number] [place] [address] May, [place] [address] [address] May, [place] [address] [place] [id number] [place] [address] May, Lumbago with sciatica, left side M54.42 ; Lumbago with sciatica, right side M54.41 ; Other chronic pain G89.29 ; Weight gain R63.5 ; Acquired hypothyroidism E03.9 and BMI 40.0-44.9, adult Z68.41 [place] [address] [address] Apr, Cigarette nicotine dependence without complication F17.210 [place] [address] [address] Apr, Acute bilateral low back pain without sciatica M54.5 [place] [address] [place] [id number] [place] [address] Apr, Methamphetamine use disorder, severe, 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 ; Psychosis, unspecified psychosis type F29 ; Personality disorder F60.9 ; Opioid use disorder, moderate, dependence F11.20 and Xanax use disorder, moderate F13.20 [facility] [address] [place] [id number] [place] [address] Apr, Wheezing R06.2 and Bronchitis J40 [place] [address] [place] [id number] [place] [address] Apr, Bronchitis J40 ; Cigarette nicotine dependence without complication F17.210 and Bipolar disease, chronic F31.9 [place] [address] [place] [id number] [place] [address] Mar, Acquired hypothyroidism E03.9 [place] [address] [place] [id number] [place] [address] Mar, Acquired hypothyroidism E03.9 [place] [id number] [place] [address] Mar, Orthostatic hypotension I95.1 and Non-intractable vomiting with nausea, unspecified vomiting type R11.[id number] [place] [address] 14 Mar, 2017 Strain of lumbar region, initial encounter S39.012A [address] [address] Mar, [facility] [address] [place] [address] Mar, Bronchitis J40 [place] [id number] [place] [address] 05 Mar, 2017 Degenerative joint disease M19.90 ; Elevated LFTs R79.89 ; Adenopathy R59.1 ; Drug use F19.90 ; Pre-diabetes R73.03 and COPD (chronic obstructive pulmonary disease) J44.9 [facility] [address] [place] [id number] [place] [address] 30 Feb, 2017 Left hand pain M79.642 and Contusion of left hand, initial encounter S60.222A [place] [id number] [place] [address] Feb, Body aches R52 and Flu-like symptoms R68.89 [place] [address] [place] [id number] [place] [address] Jan, [place] [id number] [place] [address] Jan, Bipolar disease, chronic F31.9 ; Acquired hypothyroidism E03.9 and Encounter for immunization Z23 [facility] [address] [place] [id number] [place] [address] 05 Dec, 2016 Crushing injury of left wrist and hand, initial encounter S67.42XA [place] [id number] [place] [address] Sep, [address] [address] Sep, Bipolar disease, chronic F31.9 ; Panic disorder with agoraphobia F40.01 and Proteinuria, unspecified type R80.[address] [address] August, [place] [address] [address] August, Degenerative joint disease M19.90 ; Left-sided chest wall pain R07.89 ; Bipolar disease, chronic F31.9 ; Type 2 diabetes mellitus without complication, without long-term current use of insulin E11.9 ; Acquired hypothyroidism E03.9 and Acute cystitis without hematuria N30.[address] [address] Mar, [place] [address] [address] Feb, [facility] [address] [address] Feb, Right hand pain M79.641 [facility] [place] [id number] [place] [address] Feb, Bronchitis J40 ; Acute non-recurrent pansinusitis J01.40 and Seasonal allergic rhinitis due to other allergic trigger J30.89 [place] [id number] [place] [address] Dec, [facility] [address] [address] Mar, Left-sided chest wall pain R07.89 and Chronic pain G89.29 [place] [id number] [place] [address] Jul, [address] [address] Jul, [facility] [place] [facility] [address] [id number] [place] [address] May, [facility] [place] [facility] [address] [id number] [place] [address] May, [facility] [place] [facility] [address] [id number] [place] [address] Apr, [facility] [place] [facility] [address] [id number] [place] [address] Apr, [facility] [place] [facility] [address] [id number] [place] [address] Mar, [facility] [place] [facility] [address] [id number] [place] [address] Mar, [facility] [place] [facility] [address] [id number] [place] [address] Feb, [facility] [place] [facility] [address] [id number] [place] [address] Feb, [facility] [place] [facility] [address] [id number] [place] [address] Jan, [facility] [place] [facility] [address] [id number] [place] [address] Jan, [facility] [place] [facility] [address] [id number] [place] [address] Jan, [facility] [place] [facility] [address] [id number] [place] [address] 28 Jan, 2014 [facility] [place] [facility] [address] [id number] [place] [address] Jan, [facility] [place] [facility] [address] [id number] [place] [address] 15 Jan, 2014 [facility] [place] [facility] [address] [id number] [place] [address] Dec, [facility] [place] [facility] [address] [id number] [place] [address] 19 Dec, 2013 [facility] [place] [facility] [address] [id number] [place] [address] 19 Dec, 2013 [facility] [place] [facility] [address] [id number] [place] [address] 19 Dec, 2013 [facility] [place] [facility] [address] [id number] [place] [address] 18 Dec, 2013 [facility] [place] [facility] [address] [id number] [place] [address] 18 Dec, 2013 [facility] [place] [facility] [address] [id number] [place] [address] 16 Dec, 2013 [facility] [place] [facility] [address] [id number] [place] [address] 16 Dec, 2013 [facility] [place] [facility] [address] [id number] [place] [address] 17 Sep, 2013 [facility] [place] [facility] [address] [id number] [place] [address] 17 Sep, 2013 [facility] [place] [facility] [address] [id number] [place] [address] 15 Jul, 2013 [facility] [place] [facility] [address] [id number] [place] [address] 15 Jul, 2013 [facility] [place] [facility] [address] [id number] [address] 10 Jul, 2013 [facility] [place] [facility] [address] [id number] [place] [address] 10 Jul, 2013 [facility] [place] [facility] [address] [id number] [place] [address] 03 Jul, 2013 [facility] [place] [facility] [address] [id number] [place] [address] 03 Jul, 2013 [facility] [place] [facility] [address] [id number] [place] [address] Jul, [facility] [place] [facility] [address] [id number] [place] [address] Jul, [facility] [place] [facility] [address] [id number] [place] [address] Jun, [facility] [place] [facility] [address] [id number] [place] [address] Jun, [facility] [place] [facility] [address] [id number] [place] [address] May, [facility] [place] [facility] [address] [id number] [place] [address] May, [facility] [place] [facility] [address] [id number] [place] [address] May, [facility] [place] [facility] [address] [id number] [place] [address] May, [facility] [place] [facility] [address] [id number] [place] [address] Apr, [facility] [place] [facility] [address] [id number] [place] [address] Apr, [facility] [place] [facility] [address] [facility] [id number] [place] [address] Mar, [facility] [place] [facility] [address] [id number] [place] [address] Mar, [facility] [place] [facility] [address] [id number] [place] [address] Feb, [facility] [place] [facility] [address] [id number] [place] [address] Feb, [facility] [place] [facility] [address] [facility] [id number] [place] [address] Feb, [facility] [place] [facility] [address] [id number] [place] [address] Feb, [facility] [place] [facility] [address] [id number] [place] [address] Jan, [facility] [place] [facility] [address] [id number] [place] [address] Jan, [facility] [place] [facility] [address] [id number] [place] [address] Jan, [facility] [place] [facility] [address] [id number] [place] [address] Jan, [facility] [address] [id number] [place] [address] Jan, [facility] [place] [facility] [address] [id number] [place] [address] Dec, [facility] [place] [facility] [address] [id number] [place] [address] Dec, [facility] [place] [facility] [address] [id number] [place] [address] Nov, [facility] [place] [facility] [address] [id number] [place] [address] Sep, [facility] [place] [facility] [address] [id number], [place] [address] August, [facility] [place] [facility] [address] [id number] [place] [address] August, [facility] [place] [facility] [address] [id number], [place] [address] Jul, [facility] [place] [facility] [address] [id number] [place] [address] Jul, [facility] [place] [facility] [address] [id number], [place] [address] Jul, [facility] [place] [facility] [address] [id number], [place] [address] Jul, [facility] [place] [facility] [address] [id number], [place] [address] Jul, [facility] [address] [id number] [place] [address] Jul, [facility] [place] [facility] [address] [id number] [place] [address] Jul, [facility] [place] [facility] [address] [facility] [id number] [place] [address] Jun, [facility] [place] [facility] [address] [id number] [place] [address] Jun, [facility] [place] [facility] [address] [id number] [place] [address] May, [facility] [place] [facility] [address] [id number] [place] [address] Apr, [facility] [address] [facility] [id number] [place] [address] Apr, [facility] [place] [facility] [address] [id number] [place] [address] Mar, [facility] [address] [facility] [id number] [place] [address] Mar, [facility] [place] [facility] [address] [facility] [id number] [place] [address] Mar, [facility] [place] [facility] [address] [id number] [place] [address] Feb, [facility] [place] [facility] [address] [id number] [place] [address] Feb, [facility] [place] [facility] [address] [id number] [place] [address] Feb, [facility] [place] [facility] [address] [id number] [place] [address] Feb, [facility] [place] [facility] [address] [facility] [id number] [place] [address] Feb, [facility] [place] [facility] [address] [id number] [place] [address] 19 Feb, 2012 [facility] [place] [facility] [address] [id number] [place] [address] 16 Feb, 2012 [facility] [place] [facility] [address] [id number] [place] [address] 16 Feb, 2012 [facility] [place] [facility] [address] [id number] [place] [address] 14 Feb, 2012 [facility] [place] [facility] [address] [id number] [place] [address] 08 Feb, 2012 [facility] [place] [facility] [address] [id number] [place] [address] 08 Feb, 2012 [facility] [place] [facility] [address] [id number] [place] [address] 27 Dec, 2011 [facility] [place] [facility] [address] [id number] [place] [address] 07 Dec, 2011 [facility] [place] [facility] [address] [id number] [place] [address] 30 Nov, 2011 [facility] [place] [facility] [address] [id number] [place] [address] Nov, [facility] [place] [facility] [address] [facility] [id number] [place] [address] Oct, [facility] [place] [facility] [address] [id number] [place] [address] Oct, [facility] [place] [facility] [address] [id number] [place] [address] 14 Sep, 2011 [facility] [place] [facility] [address] [id number] [place] [address] 28 May, 2011 [facility] [place] [facility] [address] [id number] [place] [address] 15 May, 2011 [facility] [place] [facility] [address] [id number] [place] [address] May, [facility] [place] [facility] [address] [id number] [place] [address] Apr, [facility] [place] [facility] [address] [id number], [place] [address] Mar, [facility] [place] [facility] [address] [facility] [id number] [place] [address] Mar, [facility] [place] [facility] [address] [id number], [place] [address] Feb, [facility] [place] [facility] [address] [id number] [place] [address] Feb, [facility] [place] [facility] [address] [facility] [id number], [place] [address] Feb, [facility] [place] [facility] [address] [facility] [id number], [place] [address] Jan, [facility] [place] [facility] [address] [id number], [place] [address] Jan, [facility] [place] [facility] [address] [facility] [id number], [place] [address] Dec, [facility] [place] [facility] [address] [facility] [id number], [place] [address] Mar, [facility] [place] [facility] [address] [id number], [place] [address] Feb, [facility] [place] [facility] [address] [id number], [place] [address] 10 Feb, 2009 [facility] [place] [facility] [address] [id number], [place] [address] Feb, [facility] [place] [facility] [address] [facility] [facility] [id number], [place] [address] 20 Jan, 2009 [facility] [address] [facility] [id number], [place] [address] 16 Dec, 2008 [facility] [address] [facility] [id number] [place] [address] Nov, [facility] [address] [facility] [id number], [place] [address] Sep, [facility] [address] [facility] [id number], [place] [address] August, [facility] [address] [facility] [id number], [place] [address] May, [facility] [address] [facility] [id number], [place] [address] Mar, IMMUNIZATIONS No Known Immunizations SOCIAL HISTORY Never Assessed REASON FOR VISIT [facility] [place] [...] Hospitalization History left foot swollen, stepped in [facility] ER 05/02/17 Hospitalization History [facility] ER 06/2018
[2018-10-19] MEDS ORDERED: HYDROcodone/APAP 5 MG/325 MG (LORTAB) TAB PO ONE (22:30)
--- OUTSIDE RECORDS SUMMARY | 2018-10-19 22:33 | XMS REPORT | Continuity of Care Document ---
Author Organization Unknown Address Unknown Allergies Active Description Code Type Severity Reaction [...] Infection 10/15/2007 599.0 Urinary Tract Infection 10/15/2007 ABRAHAN MCINTOSH APRNA S 599.0 Urinary Tract Infection 10/15/2007 599.0 Urinary Tract Infection 10/15/2007 ABRAHAN MCINTOSH APRNA S 599.0 Urinary Tract Infection 10/15/2007 ABRAHAN MCINTOSH APRNA S 599.0 Urinary Tract Infection 10/15/2007 ABRAHAN MCINTOSH APRNA S 599.0 Urinary Tract Infection 10/15/2007 JUSTIN ALSTON DO 599.0 Urinary Tract Infection 10/15/2007 EVANGELINA SEN APRN A 599.0 Urinary Tract Infection 10/15/2007 KIMI HILARIO APRN 599.0 Urinary Tract Infection 10/15/2007 JUSTIN ALSTON DO 599.0 Urinary Tract Infection 10/15/2007 LACIE PARHAM RN 599.0 Urinary Tract Infection 10/15/2007 LACIE PARHAM RN 599.0 Urinary Tract Infection 10/15/2007 LACIE PARHAM RN 599.0 Urinary Tract Infection 10/15/2007 PARHAM RN, LACIE E 599.0 Urinary Tract Infection 10/23/2007 [...] EPISODE UNSPECIFIED DEGREE 10/26/2007 HENRY MCINTOSH APRN S 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 10/26/2007 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 10/26/2007 JUSTIN ALSTON DO 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 10/26/2007 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 10/26/2007 HENRY MCINTOSH APRN S 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 10/26/2007 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 10/26/2007 ANITA MCINTOSH APRNNDA S 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 10/26/2007 ANITA MCINTOSH APRNNDA S 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 10/26/2007 ANITA MCINTOSH APRNNDA S 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 10/26/2007 JUSTIN ALSTON DO K 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 10/26/2007 EVANGELINA SEN APRN 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 10/26/2007 KIMI HILAIRO APRN 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 10/26/2007 JUSTIN ALSTON DO K 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 10/26/2007 PRASAD PAVON, LACIE E 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 10/26/2007 PRASAD PAVON, LACIE E 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 10/26/2007 PRASAD PAVON, LACIE E 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 10/26/2007 PRASAD PAVON, LACIE E 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 11/27/2007 ANITA MCINTOSH APRNNDA S 682.9 Cellulitis And Abscess Of Unspecified Sites 11/27/2007 ANITA MCINTOSH APRNNDA S 724.5 Backache Unspecified 11/27/2007 ANITA MCINTOSH APRNNDA S 786.2 Cough 11/27/2007 682.9 Cellulitis And Abscess Of Unspecified Sites 11/27/2007 724.5 Backache Unspecified 11/27/2007 786.2 Cough 11/27/2007 GAMALIEL MURGUIA JUSTIN K 682.9 Cellulitis And Abscess Of Unspecified Sites 11/27/2007 GAMALIEL MURGUIA JUSTIN K 724.5 Backache Unspecified 11/27/2007 ALSTON DO JUSTIN K 786.2 Cough 11/27/2007 682.9 Cellulitis And Abscess Of Unspecified Sites 11/27/2007 724.5 Backache Unspecified 11/27/2007 786.2 Cough 11/27/2007 ANITA MCINTOSH APRNNDA S 682.9 Cellulitis And Abscess Of Unspecified Sites 11/27/2007 ARNALDO SILVER CHASER, HENRY S 724.5 Backache Unspecified 11/27/2007 ARNALDO SILVER CHASER, HENRY S 786.2 Cough 11/27/2007 682.9 Cellulitis And Abscess Of Unspecified Sites 11/27/2007 724.5 Backache Unspecified 11/27/2007 786.2 Cough 11/27/2007 ARNALDO SILVER CHASER, HENRY S 682.9 Cellulitis And Abscess Of Unspecified Sites 11/27/2007 ARNALDO SILVER CHASER, HENRY S 724.5 Backache Unspecified 11/27/2007 ARNALDO SILVER CHASER, HENRY S 786.2 Cough 11/27/2007 ARNALDO SILVER CHASER, HENRY S 682.9 Cellulitis And Abscess Of Unspecified Sites 11/27/2007 ARNALDO SILVER CHASER, HENRY S 724.5 Backache Unspecified 11/27/2007 ARNALDO SILVER CHASER, HENRY S 786.2 Cough 11/27/2007 ARNALDO SILVER CHASER, HENRY S 682.9 Cellulitis And Abscess Of Unspecified Sites 11/27/2007 ARNALDO SILVER CHASER, HENRY S 724.5 Backache Unspecified 11/27/2007 ARNALDO SILVER CHASER, HENRY S 786.2 Cough 11/27/2007 ALSTON DO JUSTIN K 682.9 Cellulitis And Abscess Of Unspecified Sites 11/27/2007 ALSTON DO, JUSTIN K 724.5 Backache Unspecified 11/27/2007 ALSTON DO, JUSTIN K 786.2 Cough 11/27/2007 MCKINLEY SILVER CHASER, EVANGELINA A 682.9 Cellulitis And Abscess Of Unspecified Sites 11/27/2007 MCKINLEY SILVER CHASER, EVANGELINA A 724.5 Backache Unspecified 11/27/2007 MCKINLEY SILVER CHASER, EVANGELINA A 786.2 Cough 11/27/2007 KIMI HILARIO APRN D 682.9 Cellulitis And Abscess Of Unspecified Sites 11/27/2007 KIMI HILARIO APRN D 724.5 Backache Unspecified 11/27/2007 KIMI HILARIO APRN D 786.2 Cough 11/27/2007 ALSTON DO JUSTIN K 682.9 Cellulitis And Abscess Of Unspecified Sites 11/27/2007 ALSTON DO JUSTIN K 724.5 Backache Unspecified 11/27/2007 GAMALIEL MURGUIA JUSTIN K 786.2 Cough 11/27/2007 PRASAD RN, LACIE E 682.9 Cellulitis And Abscess Of Unspecified Sites 11/27/2007 PRASAD RN, LACIE E 724.5 Backache Unspecified 11/27/2007 PRASAD RN, LACIE E 786.2 Cough 11/27/2007 PRASAD RN, LACIE E 682.9 Cellulitis And Abscess Of Unspecified Sites 11/27/2007 PRASAD RN, LACIE E 724.5 Backache Unspecified 11/27/2007 PARHAM RN, LACIE E 786.2 Cough 11/27/2007 PRASAD RN, LACIE E 682.9 Cellulitis And Abscess Of Unspecified Sites 11/27/2007 PRASAD RN, LACIE E 724.5 Backache Unspecified 11/27/2007 PRASAD RN, LACIE E 786.2 Cough 11/27/2007 PRASAD RN, LACIE E 682.9 Cellulitis And Abscess Of Unspecified Sites 11/27/2007 PRASAD PAVON, LACIE E 724.5 Backache Unspecified 11/27/2007 PRASAD RN, LACIE E 786.2 Cough 03/11/2008 ABRAHAN MCINTOSH APRNA S 354.0 Carpal Tunnel Syndrome 03/11/2008 ANITA MCINTOSH APRNNDA S 465.9 Upper Respiratory Infection 03/11/2008 ANITA MCINTOSH APRNNDA S 493.90 Asthma Unspecified 03/11/2008 354.0 Carpal Tunnel Syndrome 03/11/2008 465.9 Upper Respiratory Infection 03/11/2008 493.90 Asthma Unspecified 03/11/2008 JUSTIN ALSTON DO K 354.0 Carpal Tunnel Syndrome 03/11/2008 PRASHANTH ALSTON DOA K 465.9 Upper Respiratory Infection 03/11/2008 PRASHANTH ALSTON DOA K 493.90 Asthma Unspecified 03/11/2008 354.0 Carpal Tunnel Syndrome 03/11/2008 465.9 Upper Respiratory Infection 03/11/2008 493.90 Asthma Unspecified 03/11/2008 ANITA MCINTOSH APRNNDA S 354.0 Carpal Tunnel Syndrome 03/11/2008 ANITA MCINTOSH APRNNDA S 465.9 Upper Respiratory Infection 03/11/2008 ANITA MCINTOSH APRNNDA S 493.90 Asthma Unspecified 03/11/2008 354.0 Carpal Tunnel Syndrome 03/11/2008 465.9 Upper Respiratory Infection 03/11/2008 493.90 Asthma Unspecified 03/11/2008 ARNALDO SILVER CHASER, HENRY S 354.0 Carpal Tunnel Syndrome 03/11/2008 ARNALDO SILVER CHASER, HENRY S 465.9 Upper Respiratory Infection 03/11/2008 ARNALDO SILVER CHASER, HENRY S 493.90 Asthma Unspecified 03/11/2008 ARNALDO SILVER CHASER, HENRY S 354.0 Carpal Tunnel Syndrome 03/11/2008 ARNALDO SILVER CHASER, HENRY S 465.9 Upper Respiratory Infection 03/11/2008 ARNALDO SILVER CHASER, HENRY S 493.90 Asthma Unspecified 03/11/2008 ARNALDO SILVER CHASER, HENRY S 354.0 Carpal Tunnel Syndrome 03/11/2008 ARNALDO SILVER CHASER, HENRY S 465.9 Upper Respiratory Infection 03/11/2008 ARNALDO SILVER CHASER, HENRY S 493.90 Asthma Unspecified 03/11/2008 GAMALIEL MURGUIA JUSTIN K 354.0 Carpal Tunnel Syndrome 03/11/2008 GAMALIEL MURGUIA JUSTIN K 465.9 Upper Respiratory Infection 03/11/2008 ALSTON DO JUSTIN K 493.90 Asthma Unspecified 03/11/2008 MCKINLEY BARRAZA, EVANGELINA A 354.0 Carpal Tunnel Syndrome 03/11/2008 MCKINLEY BARRAZA EVANGELINA A 465.9 Upper Respiratory Infection 03/11/2008 MCKINELY BARRAZA, EVANGELINA A 493.90 Asthma Unspecified 03/11/2008 KIMI HILARIO APRN 354.0 Carpal Tunnel Syndrome 03/11/2008 KIMI HILARIO APRN 465.9 Upper Respiratory Infection 03/11/2008 KIMI HILARIO APRN 493.90 Asthma Unspecified 03/11/2008 ALSTON DO JUSTIN K 354.0 Carpal Tunnel Syndrome 03/11/2008 ALSTON DO JUSTIN K 465.9 Upper Respiratory Infection 03/11/2008 ALSTON DO JUSTIN K 493.90 Asthma Unspecified 03/11/2008 PRASAD PAVON, LACIE E 354.0 Carpal Tunnel Syndrome 03/11/2008 LACIE PARHAM RN E 465.9 Upper Respiratory Infection 03/11/2008 PRASAD PAVON, LACIE E 493.90 Asthma Unspecified 03/11/2008 PRASAD RN, LACIE E 354.0 Carpal Tunnel Syndrome 03/11/2008 PRASAD RN, LACIE E 465.9 Upper Respiratory Infection 03/11/2008 PRASAD RN, LACIE E 493.90 Asthma Unspecified 03/11/2008 PRASAD RN, LACIE E 354.0 Carpal Tunnel Syndrome 03/11/2008 PRASAD RN, LACIE E 465.9 Upper Respiratory Infection 03/11/2008 PRASAD PAVON, LACIE E 493.90 Asthma Unspecified 03/11/2008 PRASAD RN, LACIE E 354.0 Carpal Tunnel Syndrome 03/11/2008 PRASAD PAVON, LACIE E 465.9 Upper Respiratory Infection 03/11/2008 PRASAD PAVON, LACIE E 493.90 Asthma Unspecified 03/14/2008 ANITA MCINTOSH APRNNDA S 784.0 Headache 03/14/2008 784.0 Headache 03/14/2008 JUSTIN ALSTON DO K 784.0 Headache 03/14/2008 784.0 Headache 03/14/2008 ANITA MCINTOSH APRNNDA S 784.0 Headache 03/14/2008 784.0 Headache 03/14/2008 ARNALDO BARRAZA HENRY S 784.0 Headache 03/14/2008 ARNALDO BARRAZA HENRY S 784.0 Headache 03/14/2008 ARNALDO BARRAZA HENRY S 784.0 Headache 03/14/2008 JUSTIN ALSTON DO K 784.0 Headache 03/14/2008 EVANGELINA SEN APRN [...] MCINTOSH APRNNDA S 079.99 Viral Syndrome 03/17/2008 ARNALDO BARRAZA HENRY S 079.99 Viral Syndrome 03/17/2008 ANITA MCINTOSH APRNNDA S 079.99 Viral Syndrome 03/17/2008 JUSTIN ALSTON DO 079.99 Viral Syndrome 03/17/2008 EVANGELINA SEN APRN A 079.99 Viral Syndrome 03/17/2008 KIMI HILARIO APRN 079.99 Viral Syndrome 03/17/2008 JUSTIN ALSTON DO 079.99 Viral Syndrome 03/17/2008 PRASAD PAVON, LAICE E 079.99 Viral Syndrome 03/17/2008 PRASAD PAVON, [...] Acute 03/27/2008 461.9 Sinusitis Acute 03/27/2008 ARNALDO SILVER CHASER, HENRY S 461.9 Sinusitis Acute 03/27/2008 461.9 Sinusitis Acute 03/27/2008 ARNALDO SILVER CHASER, HENRY S 461.9 Sinusitis Acute 03/27/2008 ARNALDO SILVER CHASER, HENRY S 461.9 Sinusitis Acute 03/27/2008 ARNALDODARLENE GOINSN, HENRY S 461.9 Sinusitis Acute 03/27/2008 JUSTIN ALSTON DO 461.9 Sinusitis Acute 03/27/2008 MCKINLEY BARRAZA EVANGELINA A 461.9 Sinusitis Acute 03/27/2008 KIMI HILARIO APRN 461.9 Sinusitis Acute 03/27/2008 JUSTIN ALSTON DO K 461.9 Sinusitis Acute 03/27/2008 PRASAD PAVON, LACIE E 461.9 Sinusitis Acute 03/27/2008 LACIE PARHAM RN 461.9 Sinusitis Acute 03/27/2008 LACIE PARHAM RN E 461.9 Sinusitis Acute 03/27/2008 PRASAD PAVON, LACIE E 461.9 Sinusitis Acute 04/04/2008 ARNALDO BARRAZA, HENRY S V58.69 Medication High Risk 04/04/2008 V58.69 Medication High Risk 04/04/2008 JUSTIN ALSTON DO V58.69 Medication High Risk 04/04/2008 V58.69 Medication High Risk 04/04/2008 ARNALDO BARRAZA, HENRY S V58.69 Medication High Risk 04/04/2008 V58.69 Medication High Risk 04/04/2008 ARNALDO BARRAZA, HENRY S V58.69 Medication High Risk 04/04/2008 ARNALDO SILVER CHASER, HENRY S V58.69 Medication High Risk 04/04/2008 [...] Medication High Risk 04/22/2008 HENRY MCINTOSH APRN S 719.43 Pain In Joint Involving Forearm 04/22/2008 719.43 Pain In Joint Involving Forearm 04/22/2008 UJSTIN ALSTON DO K 719.43 Pain In Joint [...] 719.43 Pain In Joint Involving Forearm 04/26/2008 ARNALDO SILVER CHASER, HENRY S 300.00 An Anxiety Unspec 04/26/2008 ABRAHAN [...] MCINTOSH APRNA S 787.02 Nausea Alone 04/26/2008 ANITA MCINTOSH APRNNDA S 300.00 An Anxiety Unspec 04/26/2008 ABRAHAN MCINTOSH APRNA S 787.02 Nausea Alone 04/26/2008 ALSTON DO JUSTIN K 300.00 An Anxiety Unspec 04/26/2008 ALSTON DO JUSTIN K 787.02 Nausea Alone 04/26/2008 IONA SEN APRNIDI A 300.00 An Anxiety Unspec 04/26/2008 IONA SEN APRNIDI A 787.02 Nausea Alone 04/26/2008 KIMI HILARIO APRN 300.00 An Anxiety Unspec 04/26/2008 KIMI HILARIO APRN 787.02 Nausea Alone 04/26/2008 ALSTON DO JUSTIN K 300.00 An Anxiety Unspec 04/26/2008 ALSTON DO, JUSTIN K 787.02 Nausea Alone 04/26/2008 LACIE PARHAM RN 300.00 An Anxiety Unspec 04/26/2008 PRASAD PAVON, LACIE De Souza 787.02 Nausea Alone 04/26/2008 LACIE PARHAM RN 300.00 An Anxiety Unspec 04/26/2008 LACIE PARHAM RN 787.02 Nausea Alone 04/26/2008 PRASAD PAVON, LACIE E 300.00 An Anxiety Unspec 04/26/2008 LACIE PARHAM RN 787.02 Nausea Alone 04/26/2008 LACIE PARHAM RN E 300.00 An Anxiety Unspec 04/26/2008 PRASAD [...] LACIE E 300.02 GENERALIZED ANXIETY DISORDER 05/31/2008 HENRY MCINTOSH APRN S 698.9 Pruritus Nos 05/31/2008 HENRY MCINTOSH APRN S 782.1 Rash 05/31/2008 698.9 Pruritus Nos 05/31/2008 782.1 Rash 05/31/2008 JUSTIN ALSTON DO K 698.9 Pruritus Nos 05/31/2008 JUSTIN ALSTON DO K 782.1 Rash 05/31/2008 698.9 Pruritus Nos 05/31/2008 782.1 Rash 05/31/2008 ARNALDO SILVER CHASER, HENRY S 698.9 Pruritus Nos 05/31/2008 ARNALDO SILVER CHASER, HENRY S 782.1 Rash 05/31/2008 698.9 Pruritus Nos 05/31/2008 782.1 Rash 05/31/2008 ARNALDO SILVER CHASER, HENRY S 698.9 Pruritus Nos 05/31/2008 ARNALDO SILVER CHASER, HENRY S 782.1 Rash 05/31/2008 ARNALDO SILVER CHASER, HENRY S 698.9 Pruritus Nos 05/31/2008 ARNALDO SILVER CHASER, HENRY S 782.1 Rash 05/31/2008 ARNALDO SILVER CHASER, HENRY S 698.9 Pruritus Nos 05/31/2008 ARNALDO SILVER CHASER, HENRY S 782.1 Rash 05/31/2008 ALSTON DO JUSTIN K 698.9 Pruritus Nos 05/31/2008 ALSTON DO, JUSTIN K 782.1 Rash 05/31/2008 MCKINLEY SILVER CHASER, EVANGELINA A 698.9 Pruritus Nos 05/31/2008 MCKINLEY SILVER CHASER, EVANGELINA A 782.1 Rash 05/31/2008 KIMI HILARIO APRN D 698.9 Pruritus Nos 05/31/2008 GARLISA CUELLO APRNTH D 782.1 Rash 05/31/2008 ALSTON DO, JUSTIN K 698.9 Pruritus Nos 05/31/2008 ALSTON DO JUSTIN K 782.1 Rash 05/31/2008 PRASAD PAVON, [...] 296.90 UNSPECIFIED EPISODIC MOOD DISORDER 06/02/2008 ARNALDO SILVER CHASER, HENRY S 296.90 UNSPECIFIED EPISODIC MOOD DISORDER [...] S 133.0 Scabies 08/11/2008 133.0 Scabies 08/11/2008 ARNALDO BARRAZA HENRY S 133.0 Scabies 08/11/2008 ANITA MCINTOSH APRNNDA S 133.0 Scabies 08/11/2008 ANITA MCINTOSH APRNNDA S 133.0 Scabies 08/11/2008 GAMALIEL MURGUIA JUSTIN K 133.0 Scabies 08/11/2008 MCKINLEY BARRAZA EVANGELINA A 133.0 Scabies 08/11/2008 KIMI HILARIO APRN 133.0 Scabies 08/11/2008 JUSTIN ALSTON DO K 133.0 Scabies 08/11/2008 PRASAD RN, LACIE E 133.0 Scabies 08/11/2008 PRASAD RN, LACIE E 133.0 Scabies 08/11/2008 PRASAD RN, LACIE E 133.0 Scabies 08/11/2008 PRASAD RN, LACIE E 133.0 Scabies 08/18/2008 ABRAHAN MCINTOSH APRNA S 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 08/18/2008 ANITA [...] APRNNDA S 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 08/18/2008 ANITA MCINTOSH APRNNDA S 493.02 Extrinsic Asthma With (acute) Exacerbation 08/18/2008 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 08/18/2008 493.02 Extrinsic Asthma With (acute) Exacerbation 08/18/2008 ARNALDO BARRAZA HENRY S 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 08/18/2008 ARNALDO BARRAZA HENRY S 493.02 Extrinsic Asthma With (acute) Exacerbation 08/18/2008 ARNALDO BARRAZA HENRY S 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 08/18/2008 ARNALDO BARRAZA HENRY S 493.02 Extrinsic Asthma With (acute) Exacerbation 08/18/2008 ARNALDO BARRAZA HENRY S 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 08/18/2008 ARNALDO BARRAZA HENRY S 493.02 Extrinsic Asthma With (acute) Exacerbation 08/18/2008 JUSTIN ALSTON DO K 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 08/18/2008 PRASHANTH ALSTON DOA K 493.02 Extrinsic Asthma With (acute) Exacerbation 08/18/2008 EVANGELINA SEN APRN 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 08/18/2008 MCKINLEY BARRAZA, EVANGELINA A 493.02 Extrinsic Asthma With (acute) Exacerbation 08/18/2008 KIMI HILARIO APRN 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 08/18/2008 KIMI HILARIO APRN 493.02 Extrinsic Asthma With (acute) Exacerbation 08/18/2008 JUSTIN ALSTON DO K 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 08/18/2008 JUSTIN ALSTON DO K 493.02 Extrinsic Asthma With (acute) Exacerbation 08/18/2008 PRASAD PAVON, LACIE De Souza 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 08/18/2008 PRASAD PAVON, LACIE De Souza 493.02 Extrinsic Asthma With (acute) Exacerbation 08/18/2008 LACIE PARHAM RN 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 08/18/2008 LACIE PARHAM RN 493.02 Extrinsic Asthma With (acute) Exacerbation 08/18/2008 LACIE PARHAM RN 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 08/18/2008 LACIE PARHAM RN 493.02 Extrinsic Asthma With (acute) Exacerbation 08/18/2008 LACIE PARHAM RN E 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 08/18/2008 PRASAD PAVON, LACIE E 493.02 Extrinsic Asthma With (acute) Exacerbation 09/11/2008 ARNALDO BARRAZA, HENRY S 529.0 Glossitis 09/11/2008 529.0 Glossitis 09/11/2008 JUSTIN ALSTON DO K 529.0 Glossitis 09/11/2008 529.0 Glossitis 09/11/2008 ARNALDO BARRAZA, HENRY S 529.0 Glossitis 09/11/2008 529.0 Glossitis 09/11/2008 ARNALDO GOINSN, HENRY S 529.0 Glossitis 09/11/2008 ARNALDO GOINSN, HENRY S 529.0 Glossitis 09/11/2008 ARNALDO BARRAZA, HENRY S 529.0 Glossitis 09/11/2008 JUSTIN ALSTON DO 529.0 Glossitis 09/11/2008 EVANGELINA SEN APRN A 529.0 Glossitis 09/11/2008 KIMI HILARIO APRN 529.0 Glossitis 09/11/2008 JUSTIN ALSTON DO 529.0 Glossitis 09/11/2008 NORBRETO PARHAM RNISTA E 529.0 Glossitis 09/11/2008 PRASAD RN, LACIE E 529.0 Glossitis 09/11/2008 PRASAD PAVON, LACIE E 529.0 Glossitis 09/11/2008 PRASAD PAVON, LACIE E 529.0 Glossitis 09/20/2008 HENRY MCINTOSH APRN S 825.20 Fracture Of Unspecified Bone(s) Of Foot (except Toes) Closed 09/20/2008 825.20 Fracture Of Unspecified Bone(s) Of Foot (except Toes) Closed 09/20/2008 JUSTIN ALSTON DO K 825.20 Fracture Of Unspecified Bone(s) Of Foot (except Toes) Closed 09/20/2008 825.20 Fracture Of Unspecified Bone(s) Of Foot (except Toes) Closed 09/20/2008 HENRY MCINTOSH APRN S 825.20 Fracture Of Unspecified Bone(s) Of Foot (except Toes) Closed 09/20/2008 825.20 Fracture Of Unspecified Bone(s) Of Foot (except Toes) Closed 09/20/2008 HENRY MCINTOSH APRN S 825.20 Fracture Of Unspecified Bone(s) Of Foot (except Toes) Closed 09/20/2008 HENRY MCINTOSH APRN S 825.20 Fracture Of Unspecified Bone(s) Of Foot (except Toes) Closed 09/20/2008 HENRY MCINTOSH APRN S 825.20 Fracture Of Unspecified Bone(s) Of [...] Ankle And Foot 11/10/2008 HENRY MCINTOSH APRN 724.3 Sciatica 11/10/2008 724.3 Sciatica 11/10/2008 ALSTON DO, JUSTIN K 724.3 Sciatica 11/10/2008 724.3 Sciatica 11/10/2008 ARNALDO SILVER CHASER, HENRY S 724.3 Sciatica 11/10/2008 724.3 Sciatica 11/10/2008 ARNALDO SILVER CHASER, HENRY S 724.3 Sciatica 11/10/2008 ARNALDO SILVER CHASER, HENRY S 724.3 Sciatica 11/10/2008 ARNALDO SILVER CHASER, HENRY S 724.3 Sciatica 11/10/2008 ALSTON DO, JUSTIN K 724.3 Sciatica 11/10/2008 EVANGELINA SEN APRN A 724.3 Sciatica 11/10/2008 KIMI HILARIO APRN 724.3 Sciatica 11/10/2008 ALSTON DO, JUSTIN K 724.3 Sciatica 11/10/2008 PRASAD RN, LACIE E 724.3 Sciatica 11/10/2008 PRASAD RN, LACIE E 724.3 Sciatica 11/10/2008 PRASAD RN, LACIE E 724.3 Sciatica 11/10/2008 PRASAD PAVON, LACIE E 724.3 Sciatica 12/04/2008 HENRY MCINTOSH APRN S 477.0 Allergic Rhinitis Due To Pollen 12/04/2008 477.0 Allergic Rhinitis Due To Pollen 12/04/2008 ALSTON DO, JUSTIN K 477.0 Allergic Rhinitis Due To Pollen [...] 477.0 Allergic Rhinitis Due To Pollen 12/04/2008 ALSTON DOJUSTIN K 477.0 Allergic Rhinitis Due To Pollen 12/04/2008 MCKINLEY SILVER CHASER, EVANGELINA A 477.0 Allergic Rhinitis Due To Pollen 12/04/2008 KIMI HILARIO APRN 477.0 Allergic Rhinitis Due To Pollen 12/04/2008 JUSTIN ALSTON DO 477.0 Allergic Rhinitis Due To Pollen 12/04/2008 PRASAD PAVON, LACIE E 477.0 Allergic Rhinitis Due To Pollen 12/04/2008 PRASAD PAVON, LACIE De Souza 477.0 Allergic Rhinitis Due To Pollen 12/04/2008 LACIE PARHAM RN 477.0 Allergic Rhinitis Due To Pollen 12/04/2008 PRASAD PAVON, LACIE De Souza 477.0 Allergic Rhinitis Due To Pollen 01/03/2009 ABRAHAN MCINTOSH APRNA S 780.79 Malaise And Fatigue 01/03/2009 780.79 Malaise And Fatigue 01/03/2009 JUSTIN ALSTON DO 780.79 Malaise And Fatigue 01/03/2009 780.79 Malaise [...] LACIE E 780.79 Malaise And Fatigue 01/03/2009 LACIE PARHAM RN E 780.79 Malaise And Fatigue 01/03/2009 PRASAD PAVON, LACIE E 780.79 Malaise And Fatigue 08/06/2010 ANITA MCINTOSH APRNNDA S 053.9 Herpes Zoster Without Complication 08/06/2010 053.9 Herpes Zoster Without Complication 08/06/2010 ALSTON JUSTIN MURGUIA K 053.9 Herpes Zoster Without Complication 08/06/2010 053.9 Herpes Zoster Without Complication 08/06/2010 ARNALDO SILVER CHASER, HENRY S 053.9 Herpes Zoster Without Complication 08/06/2010 053.9 Herpes Zoster Without Complication 08/06/2010 ARNALDO SILVER CHASER, HENRY S 053.9 Herpes Zoster Without Complication 08/06/2010 ARNALDO SILVER CHASER, HENRY S 053.9 Herpes Zoster Without Complication 08/06/2010 ARNALDO SILVER CHASER, HENRY S 053.9 Herpes Zoster Without Complication 08/06/2010 ALSTON JUSTIN MURGUIA K 053.9 Herpes Zoster Without Complication 08/06/2010 EVANGELINA SEN APRN 053.9 Herpes Zoster Without Complication 08/06/2010 KIMI [...] 053.9 Herpes Zoster Without Complication 01/21/2011 ARNALDO GOINSN, HENRY S 461.9 Sinusitis Acute 01/21/2011 ARNALDO GOINSN, HENRY S 698.9 Unspecified Pruritic Disorder 01/21/2011 461.9 Sinusitis Acute 01/21/2011 698.9 Unspecified Pruritic Disorder 01/21/2011 ALSTON PRASHANTH MURGUIAA K 461.9 Sinusitis Acute 01/21/2011 ALSTON PRASHANTH MURGUIAA K 698.9 Unspecified Pruritic Disorder 01/21/2011 461.9 Sinusitis Acute 01/21/2011 698.9 Unspecified Pruritic Disorder 01/21/2011 ARNALDO SILVER CHASER, HENRY S 461.9 Sinusitis Acute 01/21/2011 ARNALDO SILVER CHASER, HENRY S 698.9 Unspecified Pruritic Disorder 01/21/2011 461.9 Sinusitis Acute 01/21/2011 698.9 Unspecified Pruritic Disorder 01/21/2011 ARNALDO SILVER CHASER, HENRY S 461.9 Sinusitis Acute 01/21/2011 ARNALDO SILVER CHASER, HENRY S 698.9 Unspecified Pruritic Disorder 01/21/2011 ARNALDO SILVER CHASER, HENRY S 461.9 Sinusitis Acute 01/21/2011 ARNALDO SILVER CHASER, HENRY S 698.9 Unspecified Pruritic Disorder 01/21/2011 ARNALDO SILVER CHASER, HENRY S 461.9 Sinusitis Acute 01/21/2011 ARNALDO SILVER CHASER, HENRY S 698.9 Unspecified Pruritic Disorder 01/21/2011 ALSTON DO, JUSTIN K 461.9 Sinusitis Acute 01/21/2011 ALSTON DO, JUSTIN K 698.9 Unspecified Pruritic Disorder 01/21/2011 MCKINLEY SILVER CHASER, EVANGELINA A 461.9 Sinusitis Acute 01/21/2011 MCKINLEY SILVER CHASER, EVANGELINA A 698.9 Unspecified Pruritic Disorder 01/21/2011 GARKIMI CUELLO APRN D 461.9 Sinusitis Acute 01/21/2011 GARTON SILVER CHASERRADHAKIMI D 698.9 Unspecified Pruritic Disorder 01/21/2011 ALSTON DO, JUSTIN K 461.9 Sinusitis Acute 01/21/2011 ALSTON DO, JUSTIN K 698.9 Unspecified Pruritic Disorder 01/21/2011 PRASAD PAVON, LACIE E 461.9 Sinusitis Acute 01/21/2011 PRASAD PAVON, LACIE E 698.9 Unspecified Pruritic Disorder 01/21/2011 LACIE [...] Fracture Of Metacarpal Bone(s) Site Unspecified 02/08/2011 GAMALIEL DO JUSTIN K 815.00 Closed Fracture Of Metacarpal Bone(s) Site Unspecified 02/08/2011 EVANGELINA SEN APRN 815.00 Closed Fracture Of Metacarpal Bone(s) Site Unspecified 02/08/2011 KIMI HILARIO APRN 815.00 Closed Fracture Of Metacarpal Bone(s) Site Unspecified 02/08/2011 GAMALIEL DO JUSTIN K 815.00 Closed Fracture Of [...] Fracture Of Metacarpal Bone(s) Site Unspecified 03/11/2011 HENRY MCINTOSH APRN S 300.00 AN ANXIETY UNSPEC 03/11/2011 HENRY MCINTOSH APRN S 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 03/11/2011 300.00 AN ANXIETY UNSPEC 03/11/2011 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 03/11/2011 JUSTIN ALSTON DO K 300.00 AN ANXIETY UNSPEC 03/11/2011 JUSTIN ALSTON DO 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 03/11/2011 300.00 AN ANXIETY UNSPEC 03/11/2011 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 03/11/2011 ARNALDO SILVER CHASER, HENRY S 300.00 AN ANXIETY UNSPEC 03/11/2011 ARNALDO BARRAZA, HENRY S 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 03/11/2011 300.00 AN ANXIETY UNSPEC 03/11/2011 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 03/11/2011 ARNALDO SILVER CHASER, HENRY S 300.00 AN ANXIETY UNSPEC 03/11/2011 ARNALDO SILVER CHASERANITAHENRY S 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 03/11/2011 ARNALDO SILVER CHASER, HENRY S 300.00 AN ANXIETY UNSPEC 03/11/2011 ARNALDO BARRAZA HENRY S 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 03/11/2011 ARNALDO SILVER CHASER, HENRY S 300.00 AN ANXIETY UNSPEC 03/11/2011 ARNALDO BARRAZA HENRY S 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 03/11/2011 JUSTIN [...] PARHAM RN 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 03/11/2011 LACIE PARHAM RN 300.00 AN ANXIETY UNSPEC 03/11/2011 NORBERTO PARHAM RNISTA E 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 03/11/2011 PRASAD [...] TOBACCO USE DISORDER 09/22/2011 HENRY MCINTOSH APRN 724.2 LUMBAGO 09/22/2011 724.2 LUMBAGO 09/22/2011 JUSTIN ALSTON DO 724.2 LUMBAGO 09/22/2011 724.2 LUMBAGO 09/22/2011 ABRAHAN MCINTOSH APRNA S 724.2 LUMBAGO 09/22/2011 724.2 LUMBAGO 09/22/2011 ABRAHAN MCINTOSH APRNA S 724.2 LUMBAGO 09/22/2011 HENRY MCINTOSH APRN S 724.2 LUMBAGO 09/22/2011 HENRY MCINTOSH APRN S 724.2 LUMBAGO 09/22/2011 JUSTIN ALSTON DO K 724.2 LUMBAGO 09/22/2011 EVANGELINA SEN APRN 724.2 LUMBAGO 09/22/2011 KIMI HILARIO APRN 724.2 LUMBAGO 09/22/2011 JUSTIN ALSTON DO 724.2 LUMBAGO 09/22/2011 PRASAD PAVON, LACIE E 724.2 LUMBAGO 09/22/2011 PRASAD PAVON, LACIE E 724.2 LUMBAGO 09/22/2011 PRASAD PAVON, LACIE E 724.2 LUMBAGO 09/22/2011 PRASAD PAVON, LACIE E 724.2 LUMBAGO 02/16/2012 ABRAHAN MCINTOSH APRNA S 298.9 P PSYCHOSIS NOS 02/16/2012 HENRY MCINTOSH APRN S 307.47 SI DYSSOMNIA NOS 02/16/2012 HENRY MCINTOSH APRN S 311 DEPRESSIVE DISORDER NOS 02/16/2012 HENRY MCINTOSH APRN S 627.8 PERIMENOPAUSE 02/16/2012 HENRY MCINTOSH APRN S V58.69 MEDICATION HIGH RISK 02/16/2012 298.9 P PSYCHOSIS NOS 02/16/2012 307.47 SI DYSSOMNIA NOS 02/16/2012 311 DEPRESSIVE DISORDER NOS 02/16/2012 627.8 PERIMENOPAUSE 02/16/2012 V58.69 MEDICATION HIGH RISK 02/16/2012 PRASHANTH ALSTON DOA K 298.9 P PSYCHOSIS NOS 02/16/2012 GAMALIEL MURGUIA JUSTIN K 307.47 SI DYSSOMNIA NOS 02/16/2012 GAMALIEL MURGUIA JUSTIN K 311 DEPRESSIVE DISORDER NOS 02/16/2012 ALSTON DO JUSTIN K 627.8 PERIMENOPAUSE 02/16/2012 JUSTIN ALSTON DO V58.69 MEDICATION HIGH RISK 02/16/2012 298.9 P PSYCHOSIS NOS 02/16/2012 307.47 SI DYSSOMNIA NOS 02/16/2012 311 DEPRESSIVE DISORDER NOS 02/16/2012 627.8 PERIMENOPAUSE 02/16/2012 V58.69 MEDICATION HIGH RISK 02/16/2012 ARNALDO SILVER CHASER, HENRY S 298.9 P PSYCHOSIS NOS 02/16/2012 ARNALDO SILVER CHASER, HENRY S 307.47 SI DYSSOMNIA NOS 02/16/2012 ARNALDO SILVER CHASER, HENRY S 311 DEPRESSIVE DISORDER NOS 02/16/2012 ARNALDO SILVER CHASER, HENRY S 627.8 PERIMENOPAUSE 02/16/2012 ARNALDO SILVER CHASER, HENRY S V58.69 MEDICATION HIGH RISK 02/16/2012 298.9 P PSYCHOSIS NOS 02/16/2012 307.47 SI DYSSOMNIA NOS 02/16/2012 311 DEPRESSIVE DISORDER NOS 02/16/2012 627.8 PERIMENOPAUSE 02/16/2012 V58.69 MEDICATION HIGH RISK 02/16/2012 ARNALDO SILVER CHASER, HENRY S 298.9 P PSYCHOSIS NOS 02/16/2012 ARNALDO SILVER CHASER, HENRY S 307.47 SI DYSSOMNIA NOS 02/16/2012 ARNALDO SILVER CHASER, HENRY S 311 DEPRESSIVE DISORDER NOS 02/16/2012 ARNALDO SILVER CHASER, HENRY S 627.8 PERIMENOPAUSE 02/16/2012 ARNALDO SILVER CHASER, HENRY S V58.69 MEDICATION HIGH RISK 02/16/2012 ARNALDO SILVER CHASER, HENRY S 298.9 P PSYCHOSIS NOS 02/16/2012 ARNALDO SILVER CHASER, HENRY S 307.47 SI DYSSOMNIA NOS 02/16/2012 ARNALDO SILVER CHASER, HENRY S 311 DEPRESSIVE DISORDER NOS 02/16/2012 ARNALDO SILVER CHASER, HENRY S 627.8 PERIMENOPAUSE 02/16/2012 ARNALDO SILVER CHASER, HENRY S V58.69 MEDICATION HIGH RISK 02/16/2012 ARNALDO SILVER CHASER, HENRY S 298.9 P PSYCHOSIS NOS 02/16/2012 ARNALDO SILVER CHASER, HENRY S 307.47 SI DYSSOMNIA NOS 02/16/2012 ARNALDO SILVER CHASER, HENRY S 311 DEPRESSIVE DISORDER NOS 02/16/2012 ARNALDO SILVER CHASER, HENRY S 627.8 PERIMENOPAUSE 02/16/2012 ARNALDO SILVER CHASER, HENRY S V58.69 MEDICATION HIGH RISK 02/16/2012 ALSTON DO, JUSTIN K 298.9 P PSYCHOSIS NOS 02/16/2012 ALSTON DO, JUSTIN K 307.47 SI DYSSOMNIA NOS 02/16/2012 ALSTON DO, JUSTIN K 311 DEPRESSIVE DISORDER NOS 02/16/2012 ALSTON DO, JUSTIN K 627.8 PERIMENOPAUSE 02/16/2012 ALSTON DO, JUSTIN K V58.69 MEDICATION HIGH RISK 02/16/2012 MCKINLEY SILVER CHASER, EVANGELINA A 298.9 P PSYCHOSIS NOS 02/16/2012 MCKINLEY SILVER CHASER, EVANGELINA A 307.47 SI DYSSOMNIA NOS 02/16/2012 MCKINLEY SILVER CHASER, EVANGELINA A 311 DEPRESSIVE DISORDER NOS 02/16/2012 MCKINLEY SILVER CHASER, EVANGELINA A 627.8 PERIMENOPAUSE 02/16/2012 MCKINLEY SILVER CHASER, EVANGELINA A V58.69 MEDICATION HIGH RISK 02/16/2012 [...] RN E 311 DEPRESSIVE DISORDER NOS 02/16/2012 PARHAM RN, LACIE E 627.8 PERIMENOPAUSE 02/16/2012 PRASAD RN, [...] E 311 DEPRESSIVE DISORDER NOS 02/16/2012 PRASAD RN, LACIE E 627.8 PERIMENOPAUSE 02/16/2012 PRASAD PAVON, [...] 03/03/2012 KIMI HILARIO APRN 786.2 COUGH 03/03/2012 JUSTIN ALSTON DO 786.2 COUGH 03/03/2012 PRASAD RN, LACIE De Souza 786.2 COUGH 03/03/2012 PRASAD RN, LACIE De Souza 786.2 COUGH 03/03/2012 PRASAD RN, LACIE E 786.2 COUGH 03/03/2012 PRASAD RN, LACIE E 786.2 COUGH 04/19/2012 GAMALIEL MURGUIA JUSTIN K 466.0 BRONCHITIS, ACUTE 04/19/2012 ALSTON DO JUSTIN K 786.07 WHEEZING 04/19/2012 466.0 BRONCHITIS, ACUTE 04/19/2012 786.07 WHEEZING 04/19/2012 ARNALDO SILVER CHASER, HENRY S 466.0 BRONCHITIS, ACUTE 04/19/2012 ARNALDO SILVER CHASER, HENRY S 786.07 WHEEZING 04/19/2012 466.0 BRONCHITIS, ACUTE 04/19/2012 786.07 WHEEZING 04/19/2012 ARNALDO SILVER CHASER, HENRY S 466.0 BRONCHITIS, ACUTE 04/19/2012 ARNALDO SILVER CHASER, HENRY S 786.07 WHEEZING 04/19/2012 ARNALDO SILVER CHASER, HENRY S 466.0 BRONCHITIS, ACUTE 04/19/2012 ARNALDO SILVER CHASER, HENRY S 786.07 WHEEZING 04/19/2012 ARNALDO SILVER CHASER, HENRY S 466.0 BRONCHITIS, ACUTE 04/19/2012 ARNALDO SILVER CHASER, HENRY S 786.07 WHEEZING 04/19/2012 PRASHANTH ALSTON DOA K 466.0 BRONCHITIS, ACUTE 04/19/2012 GAMALIEL MURGUIA JUSTIN K 786.07 WHEEZING 04/19/2012 MCKINLEY SILVER CHASER, EVANGELINA A 466.0 BRONCHITIS, ACUTE 04/19/2012 MCKINLEY SILVER CHASER, EVANGELINA A 786.07 WHEEZING 04/19/2012 YANELIS SILVER CHASERKIMI Camarena D 466.0 BRONCHITIS, ACUTE 04/19/2012 GARTON SILVER CHASERKIMI D 786.07 WHEEZING 04/19/2012 GAMALIEL MURGUIA JUSTIN K 466.0 BRONCHITIS, ACUTE 04/19/2012 GAMALIEL MURGUIA JUSTIN K 786.07 WHEEZING 04/19/2012 PRASAD PAVON, LACIE E 466.0 BRONCHITIS, ACUTE 04/19/2012 PRASAD PAVON, LACIE De Souza 786.07 WHEEZING 04/19/2012 PRASAD PAVON, LACIE De Souza 466.0 BRONCHITIS, ACUTE 04/19/2012 PRASAD PAVON, LACIE E 786.07 WHEEZING 04/19/2012 PRASAD PAVON, LACIE E 466.0 BRONCHITIS, ACUTE 04/19/2012 PRASAD PAVON, LACIE De Souza 786.07 WHEEZING 04/19/2012 PRASAD PAVON, LACIE De Souza 466.0 BRONCHITIS, ACUTE 04/19/2012 PRASAD PAVON, LACIE E 786.07 WHEEZING 07/09/2012 ARNALDO GOINSN, HENRY S 723.1 CERVICALGIA 07/09/2012 723.1 CERVICALGIA 07/09/2012 ARNALDO GOINSN, HENRY S 723.1 CERVICALGIA 07/09/2012 ARNALDO GOINSN, HENRY S 723.1 CERVICALGIA 07/09/2012 ARNALDO GOINSN, HENRY S 723.1 CERVICALGIA 07/09/2012 JUSTIN ALSTON DO 723.1 CERVICALGIA 07/09/2012 MCKINLEY BARRAZA EVANGELINA A 723.1 CERVICALGIA 07/09/2012 KIMI HILARIO [...] S 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 08/07/2012 ANITA MCINTOSH APRNNDA S 300.21 AN PANIC DIS W AGORA 08/07/2012 ANITA MCINTOSH APRNNDA S 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 08/07/2012 ARNALDO BARRAZA HENRY S 300.21 AN PANIC DIS W AGORA 08/07/2012 ARNALDO BARRAZA HENRY S 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 08/07/2012 ARNALDO BARRAZA HENRY S 300.21 AN PANIC DIS W AGORA 08/07/2012 JUSTIN ALSTON DO K 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 08/07/2012 ALSTON DO, JUSTIN K 300.21 AN PANIC DIS W AGORA 08/07/2012 MCKINLEY GOINSN, EVANGELINA A 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 08/07/2012 MCKINLEY SILVER CHASER, EVANGELINA A 300.21 AN PANIC DIS W AGORA 08/07/2012 KIMI HILARIO APRN 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 08/07/2012 KIMI HILRAIO APRN 300.21 AN PANIC DIS W AGORA [...] 300.21 AN PANIC DIS W AGORA 12/17/2012 ABRAHAN MCINTOSH APRNA S 244.9 HYPOTHYROIDISM 12/17/2012 HENRY MCINTOSH APRN S 244.9 HYPOTHYROIDISM 12/17/2012 HENRY MCINTOSH APRN S 244.9 HYPOTHYROIDISM 12/17/2012 JUSTIN ALSTON DO K 244.9 HYPOTHYROIDISM 12/17/2012 MCKINLEY [...] PAIN IN JOINT INVOLVING LOWER LEG 03/04/2013 ARNALDO MADIANITAHENRY S V04.81 FLU SHOT 03/04/2013 JUSTIN ALSTON DO K 719.46 PAIN IN JOINT INVOLVING LOWER LEG 03/04/2013 JUSTIN ALSTON DO K V04.81 FLU SHOT 03/04/2013 EVANGELINA SEN APRN A 719.46 PAIN IN JOINT INVOLVING LOWER LEG 03/04/2013 MCKINLEYIONA SORIA APRNIDI A V04.81 FLU SHOT 03/04/2013 KIMI HILARIO APRN 719.46 PAIN IN JOINT INVOLVING LOWER LEG 03/04/2013 KIMI HILARIO APRN V04.81 FLU SHOT 03/04/2013 JUSTIN ALSTON DO 719.46 PAIN IN JOINT INVOLVING LOWER LEG 03/04/2013 JUSTIN ALSTON DO K V04.81 FLU SHOT 03/04/2013 PRASAD PAVON, LACIE E 719.46 PAIN IN JOINT INVOLVING LOWER LEG 03/04/2013 PRASAD PAVON, LACIE De Souza V04.81 FLU SHOT 03/04/2013 PRASAD PAVON, LACIE E 719.46 PAIN IN JOINT INVOLVING LOWER LEG 03/04/2013 PRASAD PAVON, LACIE E V04.81 FLU SHOT 03/04/2013 PRASAD PAVON, LACIE E 719.46 PAIN IN JOINT INVOLVING LOWER LEG 03/04/2013 PRASAD PAVON, LACIE E V04.81 FLU SHOT 03/04/2013 PRASAD PAVON, LACIE E 719.46 PAIN IN JOINT INVOLVING LOWER LEG 03/04/2013 PRASAD PAVON, LACIE E V04.81 FLU SHOT 04/08/2013 JUSTIN ALSTON DO K 338.29 OTHER CHRONIC PAIN 04/08/2013 JUSTIN ALSTON DO K 461.9 SINUSITIS ACUTE 04/08/2013 JUSTIN ALSTON DO K 496 COPD 04/08/2013 MCKINLEYYANG BARRAZA, EVANGELINA A 338.29 OTHER CHRONIC PAIN 04/08/2013 EVANGELINA SEN APRN A 461.9 SINUSITIS ACUTE 04/08/2013 MCKINLEY BARRAZA, EVANGELINA A 496 COPD 04/08/2013 KIMI HILARIO APRN 338.29 OTHER CHRONIC PAIN 04/08/2013 KIMI HILARIO APRN 461.9 SINUSITIS ACUTE 04/08/2013 KIMI HILARIO APRN 496 COPD 04/08/2013 GAMALIEL MURGUIAJUSTIN K 338.29 OTHER CHRONIC PAIN 04/08/2013 ALSTON JUSTIN K 461.9 SINUSITIS ACUTE 04/08/2013 JUSTIN ALSTON DO K 496 COPD 04/08/2013 PRASAD PAVON, LACIE E 338.29 OTHER CHRONIC PAIN 04/08/2013 PRASAD PAVON, LACIE E 461.9 SINUSITIS ACUTE 04/08/2013 PRASAD RN, LACIE E 496 COPD 04/08/2013 PRASAD RN, LACIE E 338.29 OTHER CHRONIC PAIN 04/08/2013 PRASAD RN, LACIE E 461.9 SINUSITIS ACUTE 04/08/2013 PRASAD RN, LACIE E 496 COPD 04/08/2013 PRASAD PAVON, LACIE E 338.29 OTHER CHRONIC PAIN 04/08/2013 PRASAD RN, LACIE E 461.9 SINUSITIS ACUTE 04/08/2013 PRASAD RN, LACIE E 496 COPD 04/08/2013 PRASAD PAVON, LACIE E 338.29 OTHER CHRONIC PAIN 04/08/2013 PRASAD PAVON, LACIE E 461.9 SINUSITIS ACUTE 04/08/2013 PRASAD RN, LACIE E 496 COPD 05/07/2013 EVANGELINA SEN APRN A 305.70 AMPHETA ABUSE 05/07/2013 KIMI HILARIO [...] APRN V16.3 FAM HX CANCER, BREAST 05/13/2013 YANELIS KIMI BARRAZA V65.42 COUNSELING - SMOKING CESSATION 05/13/2013 YANELIS KIMI BARRAZA V76.10 BREAST CANCER SCREENING 05/13/2013 JUSTIN ALSTON DO K 278.00 OBESITY 05/13/2013 JUSTIN ALSTON DO K 465.9 ACUTE UPPER RESPIRATORY INFECTIONS OF UNSPECIFIED SITE 05/13/2013 PRASHANTH ALSTON DOA K V16.3 FAM HX CANCER, BREAST 05/13/2013 PRASHANTH ALSTON DOA K V65.42 COUNSELING - SMOKING CESSATION 05/13/2013 JUSTIN ALSTON DO K V76.10 BREAST CANCER SCREENING 05/13/2013 LACIE [...] RN E V76.10 BREAST CANCER SCREENING 05/13/2013 LACIE PARHAM RN 278.00 OBESITY 05/13/2013 LACIE PARHAM RN 465.9 ACUTE UPPER RESPIRATORY INFECTIONS OF UNSPECIFIED SITE 05/13/2013 LACIE PARHAM RN V16.3 FAM HX CANCER, BREAST 05/13/2013 LACIE PARHAM RN V65.42 COUNSELING - SMOKING CESSATION 05/13/2013 LACIE PARHAM RN V76.10 BREAST CANCER SCREENING 05/13/2013 LACIE PARHAM RN E 278.00 OBESITY 05/13/2013 LACIE PARHAM RN 465.9 [...] Procedures Code Description [place] [address] PSYCH DIAG INTER EXAM 02/17/2012 35177 ROUTINE VENIPUNCTURE 02/27/2012 10913 EKG, TRACING (IN-HOUSE) 02/27/2012 99609 GLUCOSE 02/27/2012 10679 LIPID PANEL 02/27/2012 90131 PSYCH DIAGNOSTIC EVALUATION 06/29/2012 01892 MRI SPINE (CERVICAL) W/O CONTRAST 07/10/2012 26095 ROUTINE VENIPUNCTURE 01/09/2013 54068 TSH 01/09/2013 53381 ROUTINE VENIPUNCTURE 02/25/2013 73683 TSH 02/25/2013 48891 URINE DRUG SCREEN (IN-HOUSE) 03/04/2013 47377 URINE DRUG SCREEN (IN-HOUSE) 05/07/2013 33191 URINE METH/AMPHETAMINE GC/MS 05/13/2013 61998 MAMMOGRAM, SCREENING 05/13/2013 S0280 COMPREHENSIVE CARE MANAGEMENT 12/27/2013 S0281 CARE COORDINATION 12/27/2013 S0280 HEALTH PROMOTION 01/30/2014 S0281 CARE COORDINATION 02/04/2014 S0280 HEALTH PROMOTION 03/05/2014 S0280 HEALTH PROMOTION 04/24/2014 Results Test Result Range LIVER PANEL (LFT) - 03/14/17 14:57 PROTEIN, [...] 7-25 CREATININE 0.76 mg/dL 0.50-1.10 eGFR NON-AFR. BANGLADESHI 100 mL/min/1.73m2 > OR=60 eGFR 115 mL/min/1.73m2 [...] - 03/15/18 14:21 TSH 25.17 mIU/L NRG LIPID PANEL - 06/21/18 11:25 CHOLESTEROL, TOTAL 190 mg/dL <200 HDL CHOLESTEROL 50 mg/dL >50 TRIGLYCERIDES 229 mg/dL <150 LDL-CHOLESTEROL 105 mg/dL (calc) NRG CHOL/HDLC RATIO 3.8 (calc) <5.0 NON HDL CHOLESTEROL 140 mg/dL (calc) <130 CMP - 06/21/18 11:25 GLUCOSE 96 mg/dL 65-99 UREA NITROGEN (BUN) 17 mg/dL 7-25 CREATININE 1.01 mg/dL 0.50-1.10 eGFR NON-AFR. BANGLADESHI 70 mL/min/1.73m2 > OR=60 eGFR 81 mL/min/1.73m2 > OR=60 BUN/CREATININE RATIO NOT APPLICABLE (calc) 6-22 SODIUM 141 mmol/L 135-146 POTASSIUM 4.3 mmol/L 3.5-5.3 CHLORIDE 102 mmol/L 98-110 CARBON DIOXIDE 31 mmol/L 20-32 CALCIUM 9.9 mg/dL 8.6-10.2 PROTEIN, TOTAL 7.0 g/dL 6.1-8.1 ALBUMIN 4.5 g/dL 3.6-5.1 GLOBULIN 2.5 g/dL (calc) 1.9-3.7 ALBUMIN/GLOBULIN RATIO 1.8 (calc) 1.0-2.5 BILIRUBIN, TOTAL 0.4 mg/dL 0.2-1.2 ALKALINE PHOSPHATASE 107 U/L 33-115 AST 39 U/L 10-30 ALT 80 U/L 6-29 CBC - 06/21/18 11:25 WHITE BLOOD CELL COUNT 6.9 Thousand/uL 3.8-10.8 RED BLOOD CELL COUNT 4.95 Million/uL 3.80-5.10 HEMOGLOBIN 14.5 g/dL 11.7-15.5 HEMATOCRIT 43.3 % 35.0-45.0 MCV 87.5 fL 80.0-100.0 MCH 29.3 pg 27.0-33.0 MCHC 33.5 g/dL 32.0-36.0 RDW 13.0 % 11.0-15.0 PLATELET COUNT 209 Thousand/uL 140-400 MPV 10.3 fL 7.5-12.5 ABSOLUTE NEUTROPHILS 2243 cells/uL 3428-3483 ABSOLUTE LYMPHOCYTES 3643 cells/uL 850-3900 ABSOLUTE MONOCYTES 621 cells/uL 200-950 ABSOLUTE EOSINOPHILS 324 cells/uL 15-500 ABSOLUTE BASOPHILS 69 cells/uL 0-200 NEUTROPHILS 32.5 % NRG LYMPHOCYTES 52.8 % NRG MONOCYTES 9.0 % NRG EOSINOPHILS 4.7 % NRG BASOPHILS 1.0 % NRG LIPID PANEL - 09/17/18 11:17 CHOLESTEROL, TOTAL 278 mg/dL <200 HDL CHOLESTEROL 61 mg/dL >50 TRIGLYCERIDES 162 mg/dL <150 LDL-CHOLESTEROL 186 mg/dL (calc) NRG CHOL/HDLC RATIO 4.6 (calc) <5.0 NON HDL CHOLESTEROL 217 mg/dL (calc) <130 Encounters ACCT No. Visit Date/Time Discharge Status Pt. Type Provider Facility Loc./Unit Complaint [id number] 04/14/2014 15:00:00 04/14/2014 23:59:59 CLS Outpatient LACIE PARHAM RN [id number] 02/13/2014 08:04:00 02/13/2014 23:59:59 CLS Outpatient LACIE PARHAM RN [id number] 02/04/2014 09:00:00 02/04/2014 23:59:59 CLS Outpatient LACIE PARHAM RN [id number] 01/22/2014 14:45:00 01/22/2014 23:59:59 CLS Outpatient LACIE PARHAM RN [id number] 12/27/2013 14:03:00 12/27/2013 23:59:59 CLS Outpatient JUSTIN ALSTON DO [id number] 05/13/2013 12:51:00 05/13/2013 23:59:59 CLS Outpatient EVANGELINA SEN APRN [id number] 05/07/2013 14:54:00 05/07/2013 23:59:59 CLS Outpatient KIMI HILARIO APRN [id number] 04/08/2013 12:50:00 04/08/2013 23:59:59 CLS Outpatient JUSTIN ALSTON DO [id number] 03/04/2013 12:59:00 03/04/2013 23:59:59 CLS Outpatient HENRY MCINTOSH APRN [id number] 01/09/2013 12:10:00 01/09/2013 23:59:59 CLS Outpatient HENRY MCINTOSH APRN [id number] 12/17/2012 15:36:00 12/17/2012 23:59:59 CLS Outpatient HENRY MCINTOSH APRN [id number] 07/09/2012 10:45:00 07/09/2012 23:59:59 CLS Outpatient HENRY MCINTOSH APRN [id number] 06/26/2012 15:59:00 06/26/2012 23:59:59 CLS Outpatient [id number] 04/19/2012 09:11:00 04/19/2012 23:59:59 CLS Outpatient JUSTIN ALSTON DO [id number] 03/03/2012 10:15:00 03/03/2012 23:59:59 CLS Outpatient [id number] 02/16/2012 16:10:00 02/16/2012 23:59:59 CLS Outpatient EHNRY MCINTOSH APRN [id number] 08/07/2012 15:57:00 Document Registration [id number] 10/16/2018 11:20:00 10/16/2018 23:59:59 CLS Outpatient CORINNE BERGER APRN [facility] [place] [id number] 09/17/2018 11:00:00 Document Registration [id number] 06/21/2018 10:00:00 Document Registration [id number] 03/15/2018 14:20:00 Document Registration [id number] 02/16/2018 13:00:00 Document Registration [id number] 01/04/2018 14:20:00 Document Registration [id number] 05/29/2017 09:00:00 Document Registration [id number] 04/06/2017 09:00:00 Document Registration [id number] 03/14/2017 14:00:00 Document Registration
[2018-10-19] MEDS ORDERED: HYDR-3455 PO (23:19)
[2018-10-19 23:30] VITALS: BP 119/79
--- NOTE | 2018-10-20 08:09 | Diagnostic Imaging Report ---
PATIENT HISTORY: Fall, right fifth toe injury. TECHNIQUE: 3 views of the right fifth toe COMPARISON: None FINDINGS: There is a subtle linear lucency seen only on the oblique view at the medial aspect of the fifth toe distal phalangeal base, which could represent a nondisplaced fracture. Joint spaces are generally preserved. There is mild deformity of the fifth metatarsal which may be from remote trauma. IMPRESSION: 1. Nondisplaced fracture at the right fifth toe distal phalangeal base. Dictated by: Dictated on workstation # [id number]
--- NOTE | 2018-10-20 08:21 | Diagnostic Imaging Report ---
PATIENT HISTORY: Fall with injury to the right chest. TECHNIQUE: Frontal view of the chest. Frontal and oblique views of the right ribs COMPARISON: 06/21/2018 FINDINGS: Lung volumes are normal. No focal consolidation is seen. There is no pleural effusion or pneumothorax. The cardiac silhouette is normal in size. The inferior ribs are not well seen, likely due to body habitus. There appear to be old fractures of the right seventh and eighth ribs. IMPRESSION: 1. The ribs are suboptimally evaluated due to overlying soft tissue, however, there appear to be old fractures of the right seventh and eighth ribs. No definite acute fracture is seen. 2. No acute pulmonary abnormality. Dictated by: Dictated on workstation # [id number]
== END 2018-10-19 23:30 | disposition home or self-care (01) ==
LOC: EDUNIT# 21:50 → ER FS 21:51
DX: S29.9XXA Unspecified injury of thorax, initial encounter (principal); S90.121A Contusion of right lesser toe(s) without damage to nail, initial encounter; G43.909 Migraine, unspecified, not intractable, without status migrainosus; F31.9 Bipolar disorder, unspecified; F20.9 Schizophrenia, unspecified; F41.9 Anxiety disorder, unspecified; F60.9 Personality disorder, unspecified; Z90.710 Acquired absence of both cervix and uterus; Z90.49 Acquired absence of other specified parts of digestive tract; Z77.22 Contact with and (suspected) exposure to environmental tobacco smoke (acute) (chronic); Z88.0 Allergy status to penicillin; Z88.6 Allergy status to analgesic agent; Z88.5 Allergy status to narcotic agent; Z88.8 Allergy status to other drugs, medicaments and biological substances; W01.0XXA Fall on same level from slipping, tripping and stumbling without subsequent striking against object, initial encounter
CPT/HCPCS: 71100; 73660

== ENCOUNTER 2018-11-21 19:50 | Emergency (ER) | payer MEDICAID ==
[~2018-11-21] VITALS: Ht 157.5 cm; Wt 112.5 kg
[~2018-11-21 19:50] MED LIST changes: +HYDR-3455 PO
[2018-11-21] MEDS ORDERED: HYDROcodone/APAP 5 MG/325 MG (LORTAB) TAB PO ONE (20:15)
[2018-11-21] MEDS ORDERED: IBUPROFEN 600 MG (MOTRIN) TAB PO ONE (20:15)
--- NOTE | 2018-11-21 20:36 | Diagnostic Imaging Report ---
INDICATION: Right knee pain COMPARISON: 03/30/2008 FINDINGS: 3 views of the right knee joint demonstrate no acute fracture or dislocation. No focal osseous lesions are seen. No significant joint effusion is seen. The surrounding soft tissue structures are unremarkable. There are no radiopaque foreign bodies. IMPRESSION: 1. No acute fractures or dislocations of the right knee joint. Dictated by: Dictated on workstation # [id number]
[2018-11-21] MEDS ORDERED: HYDR-4226 PO (20:41)
--- NOTE | 2018-11-21 20:41 | ED Lower Extremity ---
General Chief Complaint: Lower Extremity Stated Complaint: RT KNEE PAIN Nursing Triage Note: PT. STEPPED IN A HOLE WHEN PLAYING WITH KIDS IN THE BACK YARD AND TWISTED HER RIGHT KNEE. PAIN IS BEHIND THE KNEE. Nursing Sepsis Screen: No Definite Risk History of Present Illness Date Seen by Provider: Nov 21, 2018 Time Seen by Provider: 20:36 Initial Comments Patient presenting to the emergency department for evaluation of right knee pain status post twisting injury. She said she was running in the backyard chasing a nephew when she stepped in a hole and twisted her knee and felt a pop. She says she is still able to bear weight but it is swollen and she feels a burning sensation behind her knee. She denies any distal weakness numbness or tingling. She denies any other areas of pain or trauma. Allergies and Home Medications Allergies Coded Allergies: Penicillins (Unverified Allergy, Mild, 10/19/18) aspirin (Verified Allergy, Unknown, 10/19/18) cephalexin (Verified Allergy, Unknown, 10/19/18) folic acid (Verified Allergy, Unknown, 06/21/18) iron (Verified Allergy, Unknown, 06/21/18) penicillin G (Verified Allergy, Unknown, 06/21/18) tramadol (Verified Allergy, Unknown, 10/19/18) Home Medications Bacitracin 3.5 Gm Oint...g., 0.1 GM OP BID Prescribed by: CRYSTAL BOBBY on 12/24/17 0305 Benzonatate 100 Mg Capsule, 200 MG PO TID PRN for COUGH Prescribed by: MINGO WALTON on 06/21/182141 Hydrocodone/Acetaminophen 1 Each Tablet, 1-2 TAB PO Q4-6HR PRN for PAIN-MODERATE TO SEVERE Prescribed by: MINGO WALTON on 06/21/182141 Hydrocodone/Acetaminophen 1 Each Tablet, 1-2 EACH PO Q6H PRN for PAIN-MODERATE Prescribed by: FLACO ESPINOZA MD on 10/19/18 2319 Ibuprofen 800 Mg Tablet, 1 TAB PO QID PRN FOR PAIN Prescribed by: CIELO MCINTOSH on 11/18/082208 Methylprednisolone 4 Mg/Dose-Pack Tab.ds.pk, 0 PO UD FOR BREATHING Prescribed by: CIELO MCINTOSH on 01/28/092137 Metoclopramide Hcl 10 Mg Tablet, 1 EACH PO QID PRN FOR NAUSEA AND STOMACH DISCOMFORT Prescribed by: CIELO MCINTOSH on 01/20/09 2100 Naproxen 500 Mg Tablet, 1 EACH PO BID Prescribed by: JAZ QUIROZ on 02/11/09 1737 Promethazine Hcl 25 Mg Tablet, 1 TAB PO QID Prescribed by: THOMAS ALLEN on 12/25/08 1809 Sulfamethoxazole/Trimethoprim 1 Each Tablet, 1 EACH PO BID Prescribed by: CRYSTAL BOBBY on 12/24/17 0305 Patient Home Medication List Home Medication List Reviewed: Yes Review of Systems Constitutional: no symptoms reported Respiratory: no symptoms reported Cardiovascular: no symptoms reported Musculoskeletal: joint pain Skin: no symptoms reported Psychiatric/Neurological: No Symptoms Reported Past Kvndxdk-Ycvcbt-Agiddo Hx Patient Social History Type Used: Cigarettes 2nd Hand Smoke Exposure: Yes Recent Foreign Travel: No Contact w/Someone Who Travel: No Recent Infectious Disease Expo: No Recent Hopitalizations: No Past Medical History Surgeries: Yes Gallbladder, Hysterectomy, Tubal Ligation Respiratory: No Cardiac: Yes High Cholesterol Neurological: No Headaches /Migraines Reproductive Disorders: Yes (12 MISCARRIAGES) 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 oz. 112.920953dm; BMI Method:Stated General Appearance: WD/WN, no apparent distress Cardiovascular: regular rate, rhythm Respiratory: no respiratory distress Knees: right knee bone tenderness, right knee joint effusion, right knee pain, right knee swelling, right knee other (positive pain on anterior drawer test or Isidoro's but joint is stable with no laxity) Neurologic/Tendon: normal sensation Neurologic/Psychiatric: no motor/sensory deficits Skin: warm/dry Progress/Results/Core Measures Results/Orders My Orders Orders - YOGESH TIWARI DO Knee 3 View Right (11/21/18 20:11) Hydrocodone/Apap 5/325 Tablet (Lortab 5 (11/21/18 20:15) Ibuprofen Tablet (Motrin Tablet) (11/21/18 20:15) Medications Given in ED Current Medications Medications Dose Ordered Sig/Cassandra Route Start Time Stop Time Status Last Admin Dose Admin Acetaminophen/ Hydrocodone Bitart 2 tab ONCE ONCE PO 11/21/18 20:15 11/21/18 20:16 DC 11/21/18 20:27 2 TAB Ibuprofen 600 mg ONCE ONCE PO 11/21/18 20:15 11/21/18 20:16 DC 11/21/18 20:27 600 MG Vital Signs/I&O 11/21/18 20:00 Temp 97.8 Pulse 99 Resp 20 B/P (MAP) 140/91 (107) Pulse Ox 94 O2 Delivery Room Air Blood Pressure Mean: 107 Progress Progress Note : Progress Note Patient likely suffered a ligamentous injury including possible anterior cruciate ligament or meniscus tear based off mechanism of injury and physical exam. Patient will be placed in a knee immobilizer made nonweightbearing and told to follow with primary care provider and orthopedics. She was told to take ibuprofen for pain [place] for breakthrough pain. Patient aware and agreeable with plan for discharge and verbalized understanding of the need for short-term follow-up and strict ED return precautions discussed including worsening pain swelling neurologic changes other general concerns. Departure Impression Primary Impression: Sprain of knee Qualified Codes: S83.91XA - Sprain of unspecified site of right knee, initial encounter Disposition: 01 HOME, SELF-CARE Condition: Stable Departure-Patient Inst. Referrals: [facility]/ (PCP) Primary Care Physician CORINNE BERGER (Family) Primary Care Physician Patient Instructions: Knee Sprain (DC) Add. Discharge Instructions: All discharge instructions reviewed with patient and/or family. Voiced understanding. Take 600mg of ibuprofen every 6 hours. Follow with PCP and/or Ortho as soon as you can. Come back with any concerns. Thank you! Scripts Hydrocodone/Acetaminophen ([place] 5-325 Tablet) 1 Each Tablet 1 TAB PO QHS for Pain MDD 10 TABS for 7 Days, #7 TAB Prov: YOGESH TIWARI DO 11/21/18 YOGESH TIWARI DO Nov 21, 2018 20:41
[2018-11-21 20:53] VITALS: BP 138/88
== END 2018-11-21 20:54 | disposition home or self-care (01) ==
LOC: EDUNIT# 19:50 → ER FS 19:52
DX: S83.91XA Sprain of unspecified site of right knee, initial encounter (principal); E78.00 Pure hypercholesterolemia, unspecified; G43.909 Migraine, unspecified, not intractable, without status migrainosus; E03.9 Hypothyroidism, unspecified; E11.9 Type 2 diabetes mellitus without complications; F41.9 Anxiety disorder, unspecified; F31.9 Bipolar disorder, unspecified; F20.9 Schizophrenia, unspecified; F60.9 Personality disorder, unspecified; Z88.0 Allergy status to penicillin; Z88.6 Allergy status to analgesic agent; Z88.5 Allergy status to narcotic agent; Z88.8 Allergy status to other drugs, medicaments and biological substances; Z98.51 Tubal ligation status; Z90.710 Acquired absence of both cervix and uterus; X50.1XXA Overexertion from prolonged static or awkward postures, initial encounter; Y93.02 Activity, running
CPT/HCPCS: 73562

== ENCOUNTER 2018-12-22 01:30 | Emergency (ER) | payer MEDICAID ==
[~2018-12-22] VITALS: Ht 159.5 cm; Wt 116.1 kg
--- NOTE | 2018-12-22 01:55 | ED Cough/URI ---
General Stated Complaint: COUGH/PAIN IN RIBS SOA Source: patient Exam Limitations: no limitations History of Present Illness Date Seen by Provider: Dec 22, 2018 Time Seen by Provider: 01:45 Initial Comments The patient is a 38-year-old female who presents for evaluation of productive cough over the last few days as well as left-sided rib discomfort. She reports a history of COPD and still continues to smoke. She has been having some pain in the left ribs with coughing and states that she "thinks that she had a pulmonary embolism in the past". She states that she was never put on outpatient anticoagulation however. She denies hematemesis, hemoptysis, nausea or vomiting, fevers or chills, abdominal pain, syncope, palpitations, back pain, or dizziness. She is alert and oriented 4, calm, and appears to be in no distress this time. Severity/Quality: productive cough Prior Episodes/Possible Cause: frequent episodes Allergies and Home Medications Allergies Coded Allergies: Penicillins (Unverified Allergy, Mild, 12/22/18) aspirin (Verified Allergy, Unknown, 12/22/18) cephalexin (Verified Allergy, Unknown, 12/22/18) folic acid (Verified Allergy, Unknown, 12/22/18) iron (Verified Allergy, Unknown, 12/22/18) penicillin G (Verified Allergy, Unknown, 12/22/18) tramadol (Verified Allergy, Unknown, 12/22/18) Home Medications Albuterol Sulfate 18 Gm Hfa.aer.ad, 18 GM INH Q4H PRN for WHEEZING Prescribed by: YVETTE BENITEZ on 12/22/18 034 Bacitracin 3.5 Gm Oint...g., 0.1 GM OP BID Prescribed by: CRYSTAL BOBBY on 12/24/17 0305 Benzonatate 100 Mg Capsule, 200 MG PO TID PRN for COUGH Prescribed by: MINGO WALTON on 06/21/18 2142 Benzonatate 100 Mg Capsule, 100 MG PO TID Prescribed by: YVETTE BENITEZ on 12/22/18 034 Guaifenesin 600 Mg Tab.er.12h, 600 MG PO TID Prescribed by: YVETTE BENITEZ on 12/22/18 034 Hydrocodone/Acetaminophen 1 Each Tablet, 1-2 TAB PO Q4-6HR PRN for PAIN-MODERATE TO SEVERE Prescribed by: MINGO WALTON on 06/21/18 214 Hydrocodone/Acetaminophen 1 Each Tablet, 1-2 EACH PO Q6H PRN for PAIN-MODERATE Prescribed by: FLACO ESPINOZA MD on 10/19/18 2319 Hydrocodone/Acetaminophen 1 Each Tablet, 1 TAB PO QHS Prescribed by: YOGESH TIWARI on 11/21/18 204 Ibuprofen 800 Mg Tablet, 1 TAB PO QID PRN FOR PAIN Prescribed by: CIELO MCINTOSH on 11/18/082208 Methylprednisolone 4 Mg/Dose-Pack Tab.ds.pk, 0 PO UD FOR BREATHING Prescribed by: CIELO MCINTOSH on 01/28/092137 Metoclopramide Hcl 10 Mg Tablet, 1 EACH PO QID PRN FOR NAUSEA AND STOMACH DISCOMFORT Prescribed by: CIELO MCINTOSH on 01/20/09 2100 Naproxen 500 Mg Tablet, 1 EACH PO BID Prescribed by: JAZ QUIROZ on 02/11/09 1737 Prednisone 20 Mg Tab, 40 MG PO DAILY Prescribed by: YVETTE BENITEZ on 12/22/18 0346 Promethazine Hcl 25 Mg Tablet, 1 TAB PO QID Prescribed by: THOMAS ALLEN on 12/25/08 1809 Sulfamethoxazole/Trimethoprim 1 Each Tablet, 1 EACH PO BID Prescribed by: CRYSTAL BOBBY on 12/24/17 0305 Patient Home Medication List Home Medication List Reviewed: Yes Review of Systems Review of Systems Constitutional: no symptoms reported EENTM: no symptoms reported Respiratory: cough, short of breath Cardiovascular: no symptoms reported Gastrointestinal: no symptoms reported Genitourinary: no symptoms reported : No Musculoskeletal: no symptoms reported Skin: no symptoms reported Psychiatric/Neurological: No Symptoms Reported Hematologic/Lymphatic: No Symptoms Reported Immunological/Allergic: no symptoms reported All Other Systems Reviewed Negative Unless Noted: Yes Past Dzegiwa-Vmbkki-Sbnjbi Hx Past Med/Social Hx: Reviewed Nursing Past Med/Soc Hx Patient Social History Type Used: Cigarettes 2nd Hand Smoke Exposure: Yes Recent Foreign Travel: No Contact w/Someone Who Travel: No Recent Hopitalizations: No Past Medical History Surgeries: Yes Gallbladder, Hysterectomy, Tubal Ligation Respiratory: No Cardiac: Yes High Cholesterol Neurological: No Headaches /Migraines 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 oz. 112.548027wg; BMI Method:Stated General Appearance: WD/WN, no apparent distress HEENT: PERRL/EOMI, normal ENT inspection Neck: non-tender, full range of motion, supple, normal inspection Respiratory: chest non-tender, lungs clear, no respiratory distress, decreased breath sounds, wheezing (mild) Cardiovascular: regular rate, rhythm, no edema, no JVD Gastrointestinal: normal bowel sounds, non tender, soft Extremities: normal range of motion, non-tender, normal inspection, no pedal edema Neurologic/Psychiatric: static balancer II-XII nml as tested, no motor/sensory deficits, alert, normal mood/affect, oriented x 3 Skin: normal color, warm/dry Progress/Results/Core Measures Suspected Sepsis SIRS Temperature: Pulse: Respiratory Rate: Laboratory Tests 12/22/18 01:45: White Blood Count 8.6 Blood Pressure / Mean: Laboratory Tests 12/22/18 01:45: Creatinine 0.83, Platelet Count 225, Total Bilirubin 0.3 Results/Orders Lab Results Laboratory Tests Test 12/22/18 01:45 Range/Units White Blood Count 8.6 4.3-11.0 10^3/uL Red Blood Count 4.72 4.35-5.85 10^6/uL Hemoglobin 14.1 11.5-16.0 G/DL Hematocrit 42 35-52 % Mean Corpuscular Volume 90 80-99 FL Mean Corpuscular Hemoglobin 30 25-34 PG Mean Corpuscular Hemoglobin Concent 33 32-36 G/DL Red Cell Distribution Width 12.6 10.0-14.5 % Platelet Count 225 130-400 10^3/uL Mean Platelet Volume 10.0 7.4-10.4 FL Neutrophils (%) (Auto) 47 42-75 % Lymphocytes (%) (Auto) 41 12-44 % Monocytes (%) (Auto) 9 0-12 % Eosinophils (%) (Auto) 2 0-10 % Basophils (%) (Auto) 1 0-10 % Neutrophils # (Auto) 4.0 1.8-7.8 X 10^3 Lymphocytes # (Auto) 3.5 1.0-4.0 X 10^3 Monocytes # (Auto) 0.8 0.0-1.0 X 10^3 Eosinophils # (Auto) 0.2 0.0-0.3 10^3/uL Basophils # (Auto) 0.1 0.0-0.1 10^3/uL D-Dimer 0.51 H 0.00-0.49 UG/ML Sodium Level 137 135-145 MMOL/L Potassium Level 3.8 3.6-5.0 MMOL/L Chloride Level 99 98-107 MMOL/L Carbon Dioxide Level 23 21-32 MMOL/L Anion Gap 15 H 5-14 MMOL/L Blood Urea Nitrogen 16 7-18 MG/DL Creatinine 0.83 0.60-1.30 MG/DL Estimat Glomerular Filtration Rate > 60 BUN/Creatinine Ratio 19 Glucose Level 154 H 70-105 MG/DL Calcium Level 9.5 8.5-10.1 MG/DL Corrected Calcium 9.2 8.5-10.1 MG/DL Total Bilirubin 0.3 0.1-1.0 MG/DL Aspartate Amino Transf (AST/SGOT) 35 H 5-34 U/L Alanine Aminotransferase (ALT/SGPT) 51 0-55 U/L Alkaline Phosphatase 138 H 40-136 U/L Troponin I < 0.30 <0.30 NG/ML Total Protein 7.5 6.4-8.2 GM/DL Albumin 4.4 3.2-4.5 GM/DL My Orders Orders - YVETTE BENITEZ DO Cbc With Automated Diff (12/22/18:49) Comprehensive Metabolic Panel (12/22/18 01:49) Creatine Kinase Mb (12/22/18:49) Troponin I (12/22/18:49) Probnp Fs (12/22/18:49) Fibrin Degradation Products (12/22/18:49) Ekg Tracing (12/22/18:49) Bottle Sorter (12/22/18:49) Chest Pa/Lat (2 View) (12/22/18:49) Albuterol/Ipra Inhalation Soln (Duoneb I (12/22/18 02:00) Svn Small Volume Nebulizer (12/22/18 01:51) Methylprednisolone Sod Succ (Solu-Medrol (12/22/18 02:00) Ns Iv 1000 Ml (Sodium Chloride 0.9%) (12/22/18 02:00) Ct Angio Chest W (12/22/18 02:53) Iohexol Injection (Omnipaque 350 Mg/Ml 1 (12/22/18 03:00) Received Contrast (Hold Metformin- Contr (12/22/18 03:00) Sodium Chloride Flush (Catheter Flush Sy (12/22/18 03:00) Ns (Ivpb) (Sodium Chloride 0.9% Ivpb Bag (12/22/18 03:00) Creatine Kinase Mb (12/22/18 01:45) Medications Given in ED Current Medications Medications Dose Ordered Sig/Cassandra Route Start Time Stop Time Status Last Admin Dose Admin Albuterol/ Ipratropium 3 ml ONCE ONCE INH 12/22/18 02:00 12/22/18 02:01 DC 12/22/18 02:25 3 ML Iohexol 125 ml ONCE ONCE IV 12/22/18 03:00 12/22/18 03:01 DC 12/22/18 03:18 125 ML Methylprednisolone Sodium Succinate 125 mg ONCE ONCE IVP 12/22/18 02:00 12/22/18 02:01 DC 12/22/18 02:28 125 MG Sodium Chloride 10 ml NEEDED PRN IV 12/22/18 03:00 12/22/18 03:18 10 ML Sodium Chloride 100 ml ONCE ONCE IV 12/22/18 03:00 12/22/18 03:01 DC 12/22/18 03:18 40 ML Vital Signs/I&O 12/22/18 01:35 Temp 36.3 Pulse 100 Resp 18 B/P (MAP) 101/77 (85) Pulse Ox 92 Capillary Refill : Progress Note : Progress Note @0405 - patient updated on lab and imaging results. There is a left sixth rib fracture likely secondary to coughing. Workup fails reveal no emergent pathology. She'll go home with a prescription for Tessalon Perles, prednisone, albuterol inhaler, [place], and guaifenesin. Advised the patient to stop smoking cigarettes. She expresses verbal understanding and agreement with the plan and is stable for discharge. ECG Comment @0303 - Normal sinus rhythm, rate of 87, normal axis, no acute ischemic findings noted, no STEMI, reviewed and interpreted by myself Departure Impression Primary Impression: Acute bronchitis Additional Impressions: Tobacco abuse Fracture of six ribs of left side Disposition: HOME, SELF-CARE Condition: Unchanged Departure-Patient Inst. Referrals: [facility] (PCP/Family) Primary Care Physician Patient Instructions: Acute Bronchitis, Adult (DC), Quitting Smoking, Rib Fracture (DC) Add. Discharge Instructions: Take the prescribed medicine as directed. Return to the ER for new or worsening symptoms. Follow-up with your doctor in the next 2-3 days. Scripts Hydrocodone/Acetaminophen ([place] 5-325 Tablet) 1 Each Tablet 1 TAB PO Q4-6HR for Pain MDD 10 TABS for 7 Days, #20 TAB Prov: YVETTE BENITEZ DO 12/22/18 Prednisone (Prednisone) 20 Mg Tab 40 MG PO DAILY for 5 Days, #10 TAB 0 Refills Prov: YVETTE BENITEZ DO 12/22/18 Albuterol Sulfate (Ventolin Hfa) 18 Gm Hfa.aer.ad 18 GM INH Q4H PRN for WHEEZING for 7 Days, #1 GM Prov: YVETTE BENITEZ DO 12/22/18 Benzonatate (TESSALON PERLES) 100 Mg Capsule 100 MG PO TID for 7 Days, #20 CAP Prov: YVETTE BENITEZ DO 12/22/18 Guaifenesin (Mucinex) 600 Mg Tab.er.12h 600 MG PO TID for 7 Days, #21 TAB Prov: YVETTE BENITEZ DO 12/22/18 YVETTE BENITEZ DO Dec 22, 2018 01:55
[2018-12-22] MEDS ORDERED: methylPREDNISolone 125 MG (Solu-MEDROL) VIAL IVP ONE (02:00)
[2018-12-22] MEDS ORDERED: RT-ALBUTEROL/IPRATROPIUM 3 ML (DUONEB) VIAL INH ONE (02:00)
[2018-12-22] MEDS ORDERED: NS IV 1000 ML 1,000 ML IV SCH (02:00)
[2018-12-22 02:05] LABS: BASOPHILS # (AUTO) 0.1 10^3/uL (0.0-0.1); BASOPHILS % (AUTO) 1 % (0-10); EOSINOPHILS # (AUTO) 0.2 10^3/uL (0.0-0.3); EOSINOPHILS % (AUTO) 2 % (0-10); HEMATOCRIT 42 % (35-52); HEMOGLOBIN 14.1 G/DL (11.5-16.0); LYMPHOCYTES # (AUTO) 3.5 X 10^3 (1.0-4.0); LYMPHOCYTES % (AUTO) 41 % (12-44); MEAN CORPUSCULAR HEMOGLOBIN 30 PG (25-34); MEAN CORPUSCULAR HGB CONC 33 G/DL (32-36); MEAN CORPUSCULAR VOLUME 90 FL (80-99); MONOCYTES # (AUTO) 0.8 X 10^3 (0.0-1.0); MONOCYTES % (AUTO) 9 % (0-12); NEUTROPHILS % (AUTO) 47 % (42-75); PLATELET COUNT 225 10^3/uL (130-400); RED CELL DISTRIBUTION WIDTH 12.6 % (10.0-14.5); WHITE BLOOD COUNT 8.6 10^3/uL (4.3-11.0)
[2018-12-22 02:19] LABS: ALANINE AMINOTRANSFERASE 51 U/L (0-55); ALKALINE PHOSPHATASE 138 U/L (40-136); BILIRUBIN,TOTAL 0.3 MG/DL (0.1-1.0); BUN/CREATININE RATIO 19; CALCIUM 9.5 MG/DL (8.5-10.1); CARBON DIOXIDE 23 MMOL/L (21-32); CHLORIDE 99 MMOL/L (98-107); CREATININE SERUM 0.83 MG/DL (0.60-1.30); GFR ESTIMATED > 60; GLUCOSE 154 MG/DL (70-105); POTASSIUM 3.8 MMOL/L (3.6-5.0); SODIUM 137 MMOL/L (135-145)
[2018-12-22 02:20] LABS: ALBUMIN 4.4 GM/DL (3.2-4.5); TOTAL PROTEIN 7.5 GM/DL (6.4-8.2)
[2018-12-22] MEDS ORDERED: IOHEXOL 350 MG/ML 150 ML (OMNIPAQUE 350) VIAL IV ONE (03:00)
[2018-12-22] MEDS ORDERED: CATHETER FLUSH 10 ML SYR IV PRN (03:00)
[2018-12-22] MEDS ORDERED: NS 100 ML (IVPB) BAG IV ONE (03:00)
[2018-12-22] MEDS ORDERED: HOLD METFORMIN - RECEIVED CONTRAST 20 ML VIAL IV SCH (03:00)
[2018-12-22] MEDS ORDERED: PRD20T PO (03:46)
[2018-12-22] MEDS ORDERED: GUAI600T43 PO (03:46)
[2018-12-22] MEDS ORDERED: BENZ100C18 PO (03:46)
[2018-12-22] MEDS ORDERED: ALBU18HF2 INH (03:46)
[2018-12-22] MEDS ORDERED: HYDR-4226 PO (04:04)
[2018-12-22 04:13] VITALS: BP 99/75
--- NOTE | 2018-12-22 06:36 | Diagnostic Imaging Report ---
PROCEDURE: CT angiography of the chest with contrast. TECHNIQUE: Multiple contiguous axial images were obtained through the chest after uneventful bolus administration of intravenous contrast. 3D reconstructed CTA MIP acquisitions were also performed. Auto Exposure Controls were utilized during the CT exam to meet ALARA standards for radiation dose reduction. INDICATION: Cough. Elevated d-dimer. COMPARISON: Chest radiograph 12/22/2018. FINDINGS: No pulmonary artery filling defects. No thoracic aortic aneurysm or dissection. Normal heart size. No mediastinal, hilar or axillary lymphadenopathy. Lungs are clear. No pleural effusion or pneumothorax. No endobronchial lesions. Several subacute posterior right rib fractures. Chronic posterior left rib fractures. No acute findings in the visualized upper abdomen. Cholecystectomy IMPRESSION: 1. No pulmonary emboli. No thoracic aortic aneurysm or dissection. 2. No acute CT findings in the chest. 3. Multiple bilateral posterior subacute and chronic rib fractures. Dictated by: Dictated on workstation # [id number]
--- NOTE | 2018-12-22 07:20 | Diagnostic Imaging Report ---
INDICATION: Cough. COMPARISON: 06/21/2018. FINDINGS: Right basilar nodular opacity measures approximately 2.3 cm. It is not seen with certainty on the lateral view. Remainder of the visualized lungs are clear. No pleural effusion or pneumothorax. Heart is normal in size. IMPRESSION: 1. Right basilar nodular opacity could be due to summation shadow. However, a pulmonary nodule could be present and this may represent an infectious process. Advise followup PA and lateral chest radiographs in 4 weeks after appropriate medical management to ensure resolution. Dictated by: Dictated on workstation # [id number]
== END 2018-12-22 04:15 | disposition home or self-care (01) ==
LOC: EDUNIT# 01:30 → ER FS 01:32
DX: S22.42XA Multiple fractures of ribs, left side, initial encounter for closed fracture (principal); J44.0 Chronic obstructive pulmonary disease with (acute) lower respiratory infection; J20.9 Acute bronchitis, unspecified; E78.00 Pure hypercholesterolemia, unspecified; G43.909 Migraine, unspecified, not intractable, without status migrainosus; E03.9 Hypothyroidism, unspecified; E11.9 Type 2 diabetes mellitus without complications; F41.9 Anxiety disorder, unspecified; F31.9 Bipolar disorder, unspecified; F60.9 Personality disorder, unspecified; F20.9 Schizophrenia, unspecified; F17.200 Nicotine dependence, unspecified, uncomplicated; Z88.0 Allergy status to penicillin; Z88.6 Allergy status to analgesic agent; Z88.1 Allergy status to other antibiotic agents; Z88.5 Allergy status to narcotic agent; Z88.8 Allergy status to other drugs, medicaments and biological substances; Z98.51 Tubal ligation status; Z90.710 Acquired absence of both cervix and uterus; X58.XXXA Exposure to other specified factors, initial encounter
CPT/HCPCS: 36415; 71046; 71275; 80053; 82553; 83880; 84484; 85025; 85379; 93005

== ENCOUNTER 2018-12-28 20:01 | Inpatient (IN) | payer MEDICAID ==
[~2018-12-28] VITALS: Ht 157.5 cm; Wt 112.6 kg
[~2018-12-28 20:01] MED LIST changes: +ALBU18HF2 INH; +GUAI600T43 PO; +PRD20T PO
--- NOTE | 2018-12-28 20:19 | ED Respiratory ---
General Chief Complaint: Cough/Cold/Flu Symptoms Stated Complaint: SOB,CONGESTED Source: patient Exam Limitations: no limitations History of Present Illness Date Seen by Provider: Dec 28, 2018 Time Seen by Provider: 20:10 Initial Comments Patient walked in the ER by private conveyance with chief complaint of continuing shortness of breath wheezing and difficulty breathing. She was seen last weekend approximately 6 days ago in this ER and told she had bronchitis and COPD exacerbation put on prednisone as well as a shot of steroids and has been using her albuterol every 4 hours with minimal relief. She does not feel any better. She's having occasional pain from a fractured rib that was discovered on x-ray from the coughing. She was given hydrocodone but she says she still has plenty of those left. She is not having any nausea fevers or chills. She feels wore out from being short of breath and not be only get any air in. She has a history of COPD. She does not have a nebulizer. She is followed by Artemio Chavarria at [facility]. Allergies and Home Medications Allergies Coded Allergies: Penicillins (Unverified Allergy, Mild, 12/22/18) aspirin (Verified Allergy, Unknown, 12/22/18) cephalexin (Verified Allergy, Unknown, 12/22/18) folic acid (Verified Allergy, Unknown, 12/22/18) iron (Verified Allergy, Unknown, 12/22/18) penicillin G (Verified Allergy, Unknown, 12/22/18) tramadol (Verified Allergy, Unknown, 12/22/18) Home Medications Albuterol Sulfate 18 Gm Hfa.aer.ad, 18 GM INH Q4H PRN for WHEEZING Prescribed by: YVETTE BENITEZ on 12/22/18345 Bacitracin 3.5 Gm Oint...g., 0.1 GM OP BID Prescribed by: CRYSTAL BOBBY on 12/24/17 0305 Benzonatate 100 Mg Capsule, 200 MG PO TID PRN for COUGH Prescribed by: MINGO WALTON on 06/21/18 214 Benzonatate 100 Mg Capsule, 100 MG PO TID Prescribed by: YVETTE BENITEZ on 12/22/18345 Guaifenesin 600 Mg Tab.er.12h, 600 MG PO TID Prescribed by: YVETTE BENITEZ on 12/22/18 034 Hydrocodone/Acetaminophen 1 Each Tablet, 1-2 TAB PO Q4-6HR PRN for PAIN-MODERATE TO SEVERE Prescribed by: MINGO WALTON on 06/21/18 214 Hydrocodone/Acetaminophen 1 Each Tablet, 1-2 EACH PO Q6H PRN for PAIN-MODERATE Prescribed by: FLACO ESPINOZA MD on 10/19/18 2319 Hydrocodone/Acetaminophen 1 Each Tablet, 1 TAB PO QHS Prescribed by: OYGESH TIWARI on 11/21/18 204 Hydrocodone/Acetaminophen 1 Each Tablet, 1 TAB PO Q4-6HR Prescribed by: YVETTE BENITEZ on 12/22/18 0404 Ibuprofen 800 Mg Tablet, 1 TAB PO QID PRN FOR PAIN Prescribed by: CIELO MCINTOSH on 11/18/08 2209 Methylprednisolone 4 Mg/Dose-Pack Tab.ds.pk, 0 PO UD FOR BREATHING Prescribed by: CIELO MCINTOSH on 01/28/09 213 Metoclopramide Hcl 10 Mg Tablet, 1 EACH PO QID PRN FOR NAUSEA AND STOMACH DISCOMFORT Prescribed by: CIELO MCINTOSH on 01/20/09 2100 Naproxen 500 Mg Tablet, 1 EACH PO BID Prescribed by: JAZ QUIROZ on 02/11/09 1737 Prednisone 20 Mg Tab, 40 MG PO DAILY Prescribed by: YVETTE BENITEZ on 12/22/18 0346 Promethazine Hcl 25 Mg Tablet, 1 TAB PO QID Prescribed by: THOMAS ALLEN on 12/25/08 1809 Sulfamethoxazole/Trimethoprim 1 Each Tablet, 1 EACH PO BID Prescribed by: CRYSTAL BOBBY on 12/24/17 0305 Patient Home Medication List Home Medication List Reviewed: Yes Review of Systems Review of Systems Constitutional: No chills, No diaphoresis EENTM: No ear discharge, No hearing loss Respiratory: cough, short of breath, wheezing Cardiovascular: No chest pain, No edema Gastrointestinal: No abdominal pain, No constipation, No diarrhea, No nausea Genitourinary: No discharge, No dysuria Past Mbzmtns-Wmxkty-Trliwc Hx Patient Social History Alcohol Use: Denies Use Recreational Drug Use: No Smoking Status: Current Everyday Smoker Type Used: Cigarettes 2nd Hand Smoke Exposure: Yes Recent Foreign Travel: No Contact w/Someone Who Travel: No Recent Hopitalizations: No Seasonal Allergies Seasonal Allergies: No Past Medical History Surgeries: Yes Gallbladder, Hysterectomy, Tubal Ligation Respiratory: Yes (O2 at noc via NC) COPD Cardiac: Yes High Cholesterol, Hypertension Neurological: No Headaches /Migraines 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 oz. 112.160507eo; 45.00 BMI Method:Stated General Appearance: WD/WN, mild distress Eyes: Bilateral Eye Normal Inspection, Bilateral Eye PERRL, Bilateral Eye EOMI HEENT: PERRL/EOMI, normal ENT inspection, pharynx normal Neck: non-tender, full range of motion, supple, normal inspection Respiratory: no accessory muscle use, respiratory distress (mild), wheezing, expiration Cardiovascular: normal peripheral pulses, regular rate, rhythm Gastrointestinal: non tender, soft Neurologic/Psychiatric: alert, oriented x 3 Skin: normal color, warm/dry Progress/Results/Core Measures Suspected Sepsis SIRS Temperature: Pulse: Respiratory Rate: Laboratory Tests 12/28/18 20:30: White Blood Count 13.4H Blood Pressure / Mean: Laboratory Tests 12/28/18 20:30: Creatinine 0.98, Platelet Count 273, Total Bilirubin 0.4 Results/Orders Lab Results Laboratory Tests Test 12/28/18 20:30 12/28/18 20:45 Range/Units White Blood Count 13.4 H 4.3-11.0 10^3/uL Red Blood Count 4.92 4.35-5.85 10^6/uL Hemoglobin 14.6 11.5-16.0 G/DL Hematocrit 44 35-52 % Mean Corpuscular Volume 89 80-99 FL Mean Corpuscular Hemoglobin 30 25-34 PG Mean Corpuscular Hemoglobin Concent 33 32-36 G/DL Red Cell Distribution Width 13.1 10.0-14.5 % Platelet Count 273 130-400 10^3/uL Mean Platelet Volume 10.1 7.4-10.4 FL Neutrophils (%) (Auto) 50 42-75 % Lymphocytes (%) (Auto) 39 12-44 % Monocytes (%) (Auto) 9 0-12 % Eosinophils (%) (Auto) 1 0-10 % Basophils (%) (Auto) 1 0-10 % Neutrophils # (Auto) 6.7 1.8-7.8 X 10^3 Lymphocytes # (Auto) 5.2 H 1.0-4.0 X 10^3 Monocytes # (Auto) 1.1 H 0.0-1.0 X 10^3 Eosinophils # (Auto) 0.2 0.0-0.3 10^3/uL Basophils # (Auto) 0.1 0.0-0.1 10^3/uL Sodium Level 137 135-145 MMOL/L Potassium Level 3.8 3.6-5.0 MMOL/L Chloride Level 103 98-107 MMOL/L Carbon Dioxide Level 23 21-32 MMOL/L Anion Gap 11 5-14 MMOL/L Blood Urea Nitrogen 22 H 7-18 MG/DL Creatinine 0.98 0.60-1.30 MG/DL Estimat Glomerular Filtration Rate > 60 BUN/Creatinine Ratio 22 Glucose Level 182 H 70-105 MG/DL Calcium Level 9.3 8.5-10.1 MG/DL Corrected Calcium 9.1 8.5-10.1 MG/DL Total Bilirubin 0.4 0.1-1.0 MG/DL Aspartate Amino Transf (AST/SGOT) 27 5-34 U/L Alanine Aminotransferase (ALT/SGPT) 41 0-55 U/L Alkaline Phosphatase 125 40-136 U/L Total Protein 7.4 6.4-8.2 GM/DL Albumin 4.2 3.2-4.5 GM/DL Blood Gas Puncture Site LT RAD Blood Gas Patient Temperature 98.1 Arterial Blood pH 7.44 H 7.37-7.43 Arterial Blood Partial Pressure CO2 39 35-45 MMHG Arterial Blood Partial Pressure O2 62 L 79-93 MMHG Arterial Blood HCO3 27 23-27 MMOL/L Arterial Blood Total CO2 27.7 21.0-31.0 MMOL/L Arterial Blood Oxygen Saturation 92 L 94-100 % Arterial Blood Base Excess 2.2 -2.5-2.5 MMOL/L [place] Test YES-POS Blood Gas Ventilator Setting NO Blood Gas Inspired Oxygen ROOM AIR My Orders Orders - KANU,CRYSTAL J Albuterol/Ipra Inhalation Soln (Duoneb I (12/28/18 20:30) Svn Small Volume Nebulizer (12/28/18 20:16) Ed Iv/Invasive Line Start (12/28/18 20:16) Cbc With Automated Diff (12/28/18 20:16) Comprehensive Metabolic Panel (12/28/18 20:16) Arterial Blood Gas (12/28/18 20:16) Chest Pa/Lat (2 View) (12/28/18 20:16) Ed Iv/Invasive Line Start (12/28/18 20:55) Lactated Ringers (Lr 1000 Ml Iv Solution (12/28/18 20:55) Methylprednisolone Sod Succ (Solu-Medrol (12/28/18 21:15) Albuterol Pre-Mix Nebs (Rt) (Proventil (12/28/18 21:02) Svn Small Volume Nebulizer (12/28/18 21:02) Levofloxacin 500 Mg/100 Ml Iv (Levaquin (12/28/18 21:15) Medications Given in ED Current Medications Medications Dose Ordered Sig/Cassandra Route Start Time Stop Time Status Last Admin Dose Admin Albuterol/ Ipratropium 3 ml ONCE ONCE INH 12/28/18 20:30 12/28/18 20:31 DC 12/28/18 20:29 3 ML Lactated Ringer's 1,000 ml @ 0 mls/hr Q0M ONCE IV 12/28/18 20:55 12/28/18 20:56 DC 12/28/18 21:07 0 MLS/HR Levofloxacin/ Dextrose 100 ml @ 100 mls/hr ONCE ONCE IV 12/28/18 21:15 12/28/18 22:14 DC 12/28/18 21:09 100 MLS/HR Methylprednisolone Sodium Succinate 125 mg ONCE ONCE IVP 12/28/18 21:15 12/28/18 21:16 DC 12/28/18 21:07 125 MG Vital Signs/I&O 12/28/18 20:30 Temp 36.7 Pulse 91 Resp 20 B/P (MAP) 124/96 (105) O2 Delivery Room Air Capillary Refill : Progress Note : Time: 21:06 Progress Note Labs, ABG, liter fluids and Solu-Medrol and DuoNeb. After the DuoNeb she says she had some improvement in her breathing and her wheezing was much improved however she still had some minimal expiratory wheezing so we gave her another 2.5 mg albuterol. At this point she's failed outpatient therapy and return to give her Levaquin for the pneumonia seen on c hest x-ray and recommend inpatient treatment. The patient agrees with this plan. Diagnostic Imaging Diagonstic Imaging: Xray Plain Films/CT/US/NM/MRI: chest (2v) Comments Right lung infiltrate NAME: CHELSI BROOKS REC#: [id number] PT STATUS: REG ER : 1980 PHYSICIAN: CRYSTAL BOBBY MD ADMIT DATE: 12/28/18/ER FS Signed Date of Exam:12/28/18 CHEST PA/LAT (2 VIEW) INDICATION: Shortness of breath, congestion COMPARISON: 12/22/2018 FINDINGS: Frontal and lateral views of the chest demonstrate persistent infiltrate in the right lung base. There is new atelectasis and infiltrate in the right upper lobe. Left lung is clear. The heart is normal. There is no pneumothorax or effusion. Osseous structures stable. IMPRESSION: 1. New infiltrate and atelectasis right upper lobe 2. Unchanged infiltrate right lung base. Continued followup recommended. Dictated by: Dictated on workstation # [id number] Dict: 12/28/[id number] Trans: 12/28/182112 GREG [id number] Interpreted by: YANIV PATEL Electronically signed by: YANIV PATEL 12/28/182112 Reviewed: Reviewed by Me Departure Communication (Admissions) Time/Spoke to Admitting Phy: 21:05 Discussed case lab imaging with Dr. Hedrick and she would like a consult with pulmonology. She agrees to admit for pneumonia. She agrees with antibiotics flexion. Time/Spoke to Consulting Phy: 21:30 Discussed case lab imaging findings with Dr. Cruz and he agrees to consult on the patient. Impression Primary Impression: Pneumonia Qualified Codes: J18.9 - Pneumonia, unspecified organism Additional Impressions: Acute and chronic respiratory failure with hypoxia COPD with exacerbation Disposition: ADMITTED INPATIENT Condition: Stable Admissions Decision to Admit Reason: Admit from ER (General) Decision to Admit/Date: Dec 28, 2018 Time/Decision to Admit Time: 21:00 Departure-Patient Inst. Referrals: [facility] (PCP/Family) Primary Care Physician CRYSTAL BOBBY Dec 28, 2018 20:19
[2018-12-28] MEDS ORDERED: RT-ALBUTEROL/IPRATROPIUM 3 ML (DUONEB) VIAL INH ONE (20:30)
[2018-12-28 20:36] LABS: BASOPHILS # (AUTO) 0.1 10^3/uL (0.0-0.1); BASOPHILS % (AUTO) 1 % (0-10); EOSINOPHILS # (AUTO) 0.2 10^3/uL (0.0-0.3); EOSINOPHILS % (AUTO) 1 % (0-10); HEMATOCRIT 44 % (35-52); HEMOGLOBIN 14.6 G/DL (11.5-16.0); LYMPHOCYTES # (AUTO) 5.2 X 10^3 (1.0-4.0); LYMPHOCYTES % (AUTO) 39 % (12-44); MEAN CORPUSCULAR HEMOGLOBIN 30 PG (25-34); MEAN CORPUSCULAR HGB CONC 33 G/DL (32-36); MEAN CORPUSCULAR VOLUME 89 FL (80-99); MEAN PLATELET VOLUME 10.1 FL (7.4-10.4); MONOCYTES # (AUTO) 1.1 X 10^3 (0.0-1.0); MONOCYTES % (AUTO) 9 % (0-12); NEUTROPHILS # (AUTO) 6.7 X 10^3 (1.8-7.8); NEUTROPHILS % (AUTO) 50 % (42-75); PLATELET COUNT 273 10^3/uL (130-400); RED CELL DISTRIBUTION WIDTH 13.1 % (10.0-14.5); WHITE BLOOD COUNT 13.4 10^3/uL (4.3-11.0)
[2018-12-28 20:54] LABS: ALKALINE PHOSPHATASE 125 U/L (40-136); BILIRUBIN,TOTAL 0.4 MG/DL (0.1-1.0); BUN/CREATININE RATIO 22; CALCIUM 9.3 MG/DL (8.5-10.1); CARBON DIOXIDE 23 MMOL/L (21-32); CHLORIDE 103 MMOL/L (98-107); CREATININE SERUM 0.98 MG/DL (0.60-1.30); GFR ESTIMATED > 60; GLUCOSE 182 MG/DL (70-105); POTASSIUM 3.8 MMOL/L (3.6-5.0); SODIUM 137 MMOL/L (135-145)
[2018-12-28 20:55] LABS: ALANINE AMINOTRANSFERASE 41 U/L (0-55); ALBUMIN 4.2 GM/DL (3.2-4.5); TOTAL PROTEIN 7.4 GM/DL (6.4-8.2)
[2018-12-28] MEDS ORDERED: LACTATED RINGERS 1,000 ML IV ONE (20:55)
[2018-12-28 20:58] LABS: ABG BASE EXCESS 2.2 MMOL/L (-2.5-2.5); ABG OXYGEN SATURATION 92 % (94-100); ABG PCO2 39 MMHG (35-45); ABG PH 7.44 (7.37-7.43); ABG PO2 62 MMHG (79-93); ABG TCO2 27.7 MMOL/L (21.0-31.0); ALLENS TEST YES-POS
[2018-12-28 20:59] LABS: INSPIRED O2 ROOM AIR; PATIENT TEMP 98.1; VENTILATOR NO
[2018-12-28] MEDS ORDERED: RT-ALBUTEROL SULF 2.5 MG/3 ML PRE-MIX VIAL INH STA (21:02)
--- NOTE | 2018-12-28 21:14 | Diagnostic Imaging Report ---
INDICATION: Shortness of breath, congestion COMPARISON: 12/22/2018 FINDINGS: Frontal and lateral views of the chest demonstrate persistent infiltrate in the right lung base. There is new atelectasis and infiltrate in the right upper lobe. Left lung is clear. The heart is normal. There is no pneumothorax or effusion. Osseous structures stable. IMPRESSION: 1. New infiltrate and atelectasis right upper lobe 2. Unchanged infiltrate right lung base. Continued followup recommended. Dictated by: Dictated on workstation # [id number]
[2018-12-28] MEDS ORDERED: methylPREDNISolone 125 MG (Solu-MEDROL) VIAL IVP ONE (21:15)
[2018-12-28] MEDS ORDERED: LEVOFLOXACIN 500 MG/100 ML IV 100 ML IV ONE (21:15)
[2018-12-28] MEDS ORDERED: ACETAMINOPHEN 500 MG TAB (TYLENOL) PO ONE (21:45)
--- NOTE | 2018-12-28 23:50 | NUR ---
CHELSI BROOKS admitted to room 413-1, with an admitting diagnosis of pneumonia, acute on chronic respiratory failure, COPD exacerbation, on 12/28/18 from [place] via cart, accompanied by EMS.CHELSI BROOKS introduced to surroundings, call light, bed controls, phone, TV, temperature control, lights, meal times, smoking policy, visitor policy, side rail policy, bathrooms and showers. Patient Rights given to patient in the handbook. CHELSI BROOKS verbalizes understanding that [facility] is not responsible for the loss or damage to any personal effects or valuables that are kept in the patients possession during their hospitalization.
[2018-12-29] VITALS (7 sets, daily range): BP systolic 107–167; BP diastolic 45–79
[2018-12-29] MEDS ORDERED: LACTATED RINGERS 1,000 ML IV ONE (00:16)
[2018-12-29] MEDS ORDERED: hydrOXYzine (VISTARIL/ATARAX) 25 MG capsule/tablet PO PRN ×2 (00:45→11:15)
[2018-12-29] MEDS ORDERED: ACETAMINOPHEN 500 MG TAB (TYLENOL) PO PRN (00:45)
[2018-12-29] MEDS ORDERED: QUEtiapine 100 MG (SEROquel) TAB IMMEDIATE RELEASE ONE (00:54)
--- NOTE | 2018-12-29 01:00 | NUR ---
patient requests her night time seroquel, in the bridge order it states 500mg seroquel po at bed time, however pt reports she takes 100mg during dinner, and 400mg before bed. Dr. Cardenas notified, and is aware 400mg of seroquel given at this time
[2018-12-29] MEDS: KETOROLAC 15 MG/ML VIAL IVP PRN ×3 (01:09→18:05)
[2018-12-29] MEDS: LACTATED RINGERS 1,000 ML IV SCH ×6 (01:13→17:13)
[2018-12-29] MEDS ORDERED: RT-ALBUTEROL/IPRATROPIUM 3 ML (DUONEB) VIAL INH PRN (01:30)
[2018-12-29] MEDS: RT-ALBUTEROL/IPRATROPIUM 3 ML (DUONEB) VIAL INH SCH ×6 (01:36→20:59)
[2018-12-29 05:26] LABS: BASOPHILS % (AUTO) 0 % (0-10); EOSINOPHILS % (AUTO) 0 % (0-10); HEMATOCRIT 41 % (35-52); HEMOGLOBIN 13.7 G/DL (11.5-16.0); LYMPHOCYTES # (AUTO) 1.5 X 10^3 (1.0-4.0); LYMPHOCYTES % (AUTO) 13 % (12-44); MEAN CORPUSCULAR HEMOGLOBIN 29 PG (25-34); MEAN CORPUSCULAR HGB CONC 33 G/DL (32-36); MEAN CORPUSCULAR VOLUME 89 FL (80-99); MEAN PLATELET VOLUME 10.1 FL (7.4-10.4); MONOCYTES # (AUTO) 0.2 X 10^3 (0.0-1.0); MONOCYTES % (AUTO) 2 % (0-12); NEUTROPHILS # (AUTO) 10.5 X 10^3 (1.8-7.8); NEUTROPHILS % (AUTO) 86 % (42-75); PLATELET COUNT 247 10^3/uL (130-400); RED CELL DISTRIBUTION WIDTH 13.2 % (10.0-14.5); WHITE BLOOD COUNT 12.2 10^3/uL (4.3-11.0)
[2018-12-29 05:50] LABS: BILIRUBIN,TOTAL 0.3 MG/DL (0.1-1.0); CALCIUM 9.1 MG/DL (8.5-10.1); CREATININE SERUM 1.03 MG/DL (0.60-1.30); POTASSIUM 4.4 MMOL/L (3.6-5.0); TOTAL PROTEIN 6.9 GM/DL (6.4-8.2)
[2018-12-29] MEDS ORDERED: LEVOTHYROXINE 50 MCG (LEVOTHROID) TAB PO SCH (06:30)
[2018-12-29] MEDS ORDERED: LORA10TA7 PO (07:29)
[2018-12-29] MEDS ORDERED: QUET100T69 PO (07:29)
[2018-12-29] MEDS ORDERED: NABU500T PO (07:29)
[2018-12-29] MEDS ORDERED: QUET400T12 PO (07:29)
[2018-12-29] MEDS ORDERED: BUDE10.22 INH (07:29)
[2018-12-29] MEDS ORDERED: OXYC-471 PO (07:29)
[2018-12-29] MEDS ORDERED: MONT10TA24 PO (07:29)
[2018-12-29] MEDS ORDERED: OMEG10006 PO (07:29)
[2018-12-29] MEDS ORDERED: LEVO175T5 PO (07:29)
[2018-12-29] MEDS ORDERED: HYDR50TA76 PO (07:29)
--- NOTE | 2018-12-29 08:52 | Pulmonary Consultation ---
History of Present Illness History of Present Illness Date of Consultation 12/29/18 08:47 Date of Admission Allergies and Home Medications Allergies Coded Allergies: Penicillins (Unverified Allergy, Mild, 12/29/18) aspirin (Verified Allergy, Unknown, 12/22/18) cephalexin (Verified Allergy, Unknown, 12/22/18) folic acid (Verified Allergy, Unknown, 12/22/18) iron (Verified Allergy, Unknown, 12/22/18) penicillin G (Verified Allergy, Unknown, 12/22/18) tramadol (Verified Allergy, Unknown, 12/22/18) Home Medications Albuterol Sulfate 18 Gm Hfa.aer.ad, 18 GM INH Q4H PRN for WHEEZING Prescribed by: YVETTE BENITEZ on 12/22/18 034 Bacitracin 3.5 Gm Oint...g., 0.1 GM OP BID Prescribed by: CRYSTAL BOBBY on 12/24/17 0305 Benzonatate 100 Mg Capsule, 200 MG PO TID PRN for COUGH Prescribed by: MINGO WALTON on 06/21/182141 Benzonatate 100 Mg Capsule, 100 MG PO TID Prescribed by: YVETTE BENITEZ on 12/22/18 034 Budesonide/Formoterol Fumarate 10.2 Gm Hfa.aer.ad, 20.4 GM INH BID, (Reported) Guaifenesin 600 Mg Tab.er.12h, 600 MG PO TID Prescribed by: YVETTE BENITEZ on 12/22/18 034 Hydrocodone/Acetaminophen 1 Each Tablet, 1-2 TAB PO Q4-6HR PRN for PAIN-MODERATE TO SEVERE Prescribed by: MINGO WALTON on 06/21/182141 Hydrocodone/Acetaminophen 1 Each Tablet, 1-2 EACH PO Q6H PRN for PAIN-MODERATE Prescribed by: FLACO ESPINOZA MD on 10/19/18 2319 Hydrocodone/Acetaminophen 1 Each Tablet, 1 TAB PO QHS Prescribed by: YOGESH TIWARI on 11/21/18 204 Hydrocodone/Acetaminophen 1 Each Tablet, 1 TAB PO Q4-6HR Prescribed by: YVETTE BENITEZ on 12/22/18 0404 Hydroxyzine HCl 50 Mg Tablet, 100 MG PO TID PRN for ANXIETY, (Reported) Ibuprofen 800 Mg Tablet, 1 TAB PO QID PRN FOR PAIN Prescribed by: CIELO MCINTOSH on 11/18/082208 Levothyroxine Sodium 175 Mcg Tablet, 175 MCG PO DAILY, (Reported) Loratadine 10 Mg Tablet, 10 MG PO DAILY, (Reported) Methylprednisolone 4 Mg/Dose-Pack Tab.ds.pk, 0 PO UD FOR BREATHING Prescribed by: CIELO MCINTOSH on 01/28/09 2138 Metoclopramide Hcl 10 Mg Tablet, 1 EACH PO QID PRN FOR NAUSEA AND STOMACH DISCOMFORT Prescribed by: CIELO MCINTOSH on 01/20/09 2100 Montelukast Sodium 10 Mg Tablet, 10 MG PO DAILY, (Reported) Nabumetone 500 Mg Tablet, 500 MG PO BID, (Reported) Naproxen 500 Mg Tablet, 1 EACH PO BID Prescribed by: JAZ QUIROZ on 02/11/09 1737 [place]-3/Dha/Epa/Fish Oil 1 Each Capsule, 2,000 MG PO BID, (Reported) Oxycodone HCl/Acetaminophen 1 Each Tablet, 5-325 MG PO Q4H PRN for PAIN- MODERATE, (Reported) Prednisone 20 Mg Tab, 40 MG PO DAILY Prescribed by: YVETTE BENITEZ on 12/22/18 0346 Promethazine Hcl 25 Mg Tablet, 1 TAB PO QID Prescribed by: THOMAS ALLEN on 12/25/08 1809 Quetiapine Fumarate 100 Mg Tablet, 100 MG PO BID, (Reported) Quetiapine Fumarate 400 Mg Tablet, 400 MG PO HS, (Reported) Sulfamethoxazole/Trimethoprim 1 Each Tablet, 1 EACH PO BID Prescribed by: CRYSTAL BOBBY on 12/24/17 0305 Past Kmjhbbv-Ymuawo-Agqssv Hx Patient Social History Alcohol Use: Denies Use Recreational Drug Use: No Smoking Status: Current Everyday Smoker Type Used: Cigarettes 2nd Hand Smoke Exposure: Yes Recent Foreign Travel: No Contact w/Someone Who Travel: No Recent Infectious Disease Expo: No Recent Hopitalizations: No Physical Abuse: No Sexual Abuse: No Mistreated: No Fear: No Immunizations Up To Date Date of Pneumonia Vaccine: Dec 29, 2016 Seasonal Allergies Seasonal Allergies: No Past Medical History Surgeries: Yes Gallbladder, Hysterectomy, Tubal Ligation Respiratory: Yes (O2 at noc via NC) COPD Cardiac: Yes High Cholesterol, Hypertension Neurological: No Headaches /Migraines 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 oz. 112.190379dx; 45.39 BMI Method:Stated Exam Exam Vital Signs Date Time Temp Pulse Resp B/P (MAP) Pulse Ox O2 Delivery O2 Flow Rate FiO2 12/29/18 08:00 36.3 111 24 110/45 (66) 92 Nasal Cannula 2.00 12/29/18 07:09 97 Room Air 12/29/18 04:56 36.5 93 20 108/66 (80) 90 Nasal Cannula 2.00 12/29/18 01:36 93 Nasal Cannula 2.00 12/29/18 00:45 36.4 80 18 142/66 (91) 93 Nasal Cannula 2.00 12/29/18 00:37 36.4 80 18 142/66 93 Nasal Cannula 2.00 12/29/18 00:00 Room Air 12/28/18 23:12 90 20 138/88 95 Room Air 12/28/18 20:30 36.7 91 20 124/96 (105) Room Air I & O 12/29/18 07:00 Intake Total 1800 ml Balance 1800 ml Height & Weight Height: 5'2.00" Weight: 248lbs. oz. 112.360558hn; 45.39 BMI Method:Stated Capillary Refill: Less Than 3 Seconds Gastrointestinal: non tender, soft Results Lab Laboratory Tests 12/28/18 20:30 12/29/18 05:03 Assessment/Plan Assessment/Plan PNeumonia -Currently on Levaquin -Check urine preg test -Meneses cultures pending Metabolic acidosis -Check LA -Increase IVF to 150 COPD -SVNs Q 4 -Monitor Tobacco use -Education MARIA EUGENIA MARINO DO Dec 29, 2018 08:52
[2018-12-29] MEDS ORDERED: QUEtiapine 100 MG (SEROquel) TAB IMMEDIATE RELEASE PO SCH ×3 (09:00→21:00)
[2018-12-29] MEDS ORDERED: LORATADINE (CLARITIN) 10 MG TAB PO SCH (09:00)
[2018-12-29] MEDS: NICOTINE 14 MG (NICODERM) PATCH TD SCH (10:12)
[2018-12-29] MEDS: ENOXAPARIN 40 MG/0.4 ML (LOVENOX) SYR SC SCH ×2 (10:13→20:24)
--- NOTE | 2018-12-29 10:43 | History & Physical-Hospitalist ---
History of Present Illness HPI/Chief Complaint Chief complaint: Pneumonia History of present illness: This is a 38-year-old white female morbidly obese with BMI of 45 with history of nighttime hypoxia maintain on 2 L of oxygen for the past 2 years and continued smoking history who presented to the ER with shortness of breath and wheezing had recently been treated for an upper respiratory illness and exacerbation of COPD which did not require antibiotics but she was hypoxic with PO2 of 62 on ABG and chest x-ray showed pneumonia so she was found to be in need of evaluation from pulmonology in addition supportive care with IV antibiotics and nebulizer treatments. She reports that she's feeling a little better but still wheezing. She does not use nebulizer t reatments at home. She was found to have an elevated lactic acid of 4.[address] Cruz was updated and I appreciate his evaluation. Source: patient Exam Limitations: no limitations Date Seen 12/29/18 Time Seen by a Provider: 10:00 Attending Physician Aura Cardenas DO [facility] Referring Physician Date of Admission Dec 28, 2018 at 21:30 Home Medications & Allergies Home Medications Reviewed patient Home Medication Reconciliation performed by pharmacy medication reconciliations lawn care technician and/or nursing. Patients Allergies have been reviewed. Allergies Allergies Coded Allergies Penicillins (Unverified Allergy, Mild, 12/29/18) aspirin (Verified Allergy, Unknown, 12/22/18) cephalexin (Verified Allergy, Unknown, 12/22/18) folic acid (Verified Allergy, Unknown, 12/22/18) iron (Verified Allergy, Unknown, 12/22/18) penicillin G (Verified Allergy, Unknown, 12/22/18) tramadol (Verified Allergy, Unknown, 12/22/18) Past Czaragb-Gbgzxt-Nxmvek Hx Past Med/Social Hx: Reviewed Nursing Past Med/Soc Hx, Reviewed and Corrections made Patient Social History Marrital Status: single Employed/Student: unemployed Alcohol Use: Denies Use Recreational Drug Use: No Smoking Status: Current Everyday Smoker Type Used: Cigarettes 2nd Hand Smoke Exposure: Yes Recent Foreign Travel: No Contact w/other who traveled: No Recent Hopitalizations: No Recent Infectious Disease Expo: No Immunizations Up To Date Date of Pneumonia Vaccine: Dec 29, 2016 Seasonal Allergies Seasonal Allergies: No Past Medical History Surgeries: Gallbladder, Hysterectomy, Tubal Ligation Respiratory: COPD Cardiac: High Cholesterol, Hypertension Neurological: Headaches /Migraines Reproductive: Yes (12 MISCARRIAGES) Hysterectomy Musculoskeletal: Degenerate Disk Disease Endocrine: Hypothyroidsim, Diabetes, Non-Insulin dep Psychosocial: Anxiety, Bipolar, Personality Disorder, Schizophrenia, Depression History of Blood Disorders: No Family History Respiratory disorder Seizure disorder 19 MOTHER G8 SISTER Review of Systems Constitutional: see HPI, dizziness, fever, malaise, weakness EENTM: no symptoms reported Respiratory: cough, dyspnea on exertion, wheezing Cardiovascular: no symptoms reported Gastrointestinal: no symptoms reported Genitourinary: no symptoms reported Musculoskeletal: no symptoms reported Skin: no symptoms reported Psychiatric/Neurological: Anxiety, Depressed Physical Exam Physical Exam Vital Signs Vital Signs - First Documented 12/28/18 12/28/18 12/29/18 20:30 23:12 00:37 Temp 36.7 Pulse 91 Resp 20 B/P (MAP) 124/96 (105) Pulse Ox 95 O2 Delivery Room Air O2 Flow Rate 2.00 Capillary Refill : Less Than 3 SecondsLess Than 3 Seconds Height, Weight, BMI Height: 5'2.00" Weight: 248lbs. oz. 112.805571jo; 45.39 BMI Method:Stated General Appearance: No Apparent Distress, WD/WN, Anxious, Chronically ill, Obese Eyes: Right Eye Normal Inspection, Right Eye PERRL HEENT: PERRL/EOMI, Normal ENT Inspection, Pharynx Normal, Moist Mucous Membranes Neck: Full Range of Motion, Normal Inspection, Non Tender Respiratory: Chest Non Tender, No Respiratory Distress, Accessory Muscle Use (subtle), Crackles, Decreased Breath Sounds, Wheezing Cardiovascular: Regular Rate, Rhythm, No Edema, No Gallop, No JVD, No Murmur, Normal Peripheral Pulses Gastrointestinal: Normal Bowel Sounds, No Organomegaly, No Pulsatile Mass, Non Tender, Soft Back: Normal Inspection, No CVA Tenderness, No Vertebral Tenderness Extremity: Normal Capillary Refill, Normal Inspection, Normal Range of Motion, Non Tender, No Calf Tenderness, No Pedal Edema Neurologic/Psychiatric: Alert, Oriented x3, No Motor/Sensory Deficits, Normal Mood/Affect Skin: Normal Color, Warm/Dry Lymphatic: No Adenopathy Results Results/Procedures Labs Laboratory Tests 12/28/18 20:30 12/29/18 05:03 Patient resulted labs reviewed. Assessment/Plan Admission Diagnosis Assessment: Pneumonia Exacerbation of COPD Hypoxemia Morbid obesity Suspicion for sleep apnea versus obesity hypoventilation syndrome Continued smoking Elevated lactic acid Long-standing mental illness Hypothyroidism Plan: Home meds Appreciate Dr. Cruz IV fluids Nebulizers O2 Admission Status: Inpatient Order (span 2 midnights) Reason for Inpatient Admission: Severe COPD with hypoxia on ABG with pneumonia and elevated lactic acid will take 3 days Diagnosis/Problems Diagnosis/Problems (1) Acute and chronic respiratory failure with hypoxia Status: Acute (2) Chronic mental illness Status: Chronic (3) Hypothyroidism Status: Chronic Qualifiers: Hypothyroidism type: acquired Qualified Codes: E03.9 - Hypothyroidism, unspecified (4) Obesity hypoventilation syndrome Status: Chronic (5) Smoker Status: Chronic (6) Leukocytosis Status: Acute Qualifiers: Leukocytosis type: leukemoid reaction Qualified Codes: D72.823 - Leukemoid reaction (7) Elevated lactic acid level Status: Acute (8) COPD with exacerbation Status: Acute (9) Pneumonia Status: Acute Qualifiers: Pneumonia type: due to unspecified organism Laterality: right Lung location: unspecified part of lung Qualified Codes: J18.9 - Pneumonia, unspecified organism Clinical Quality Measures DVT/VTE Risk/Contraindication: Risk Factor Score Per Nursin RFS Level Per Nursing on Admit: 4+=Very High AURA CARDENAS DO Dec 29, 2018 10:43
--- NOTE | 2018-12-29 11:00 | NUR ---
LACTIC ACID 4.72, DR MARINO NOTIFIED, ORDERED TO GIVE FLUID BOLUS OF LR TOTAL OF 30ML PER KG, PHARMACY CALLED TO DOSE, INSTRUCTED NURSE TO GIVE 3 LITERS
[2018-12-29] MEDS: oxyCODONE/APAP 5/325MG (PERCOCET 5) TABLET PO PRN ×3 (12:37→20:24)
[2018-12-29] MEDS ORDERED: IBUPROFEN 600 MG (MOTRIN) TAB PO SCH (13:00)
[2018-12-29] MEDS: QUEtiapine 100 MG (SEROquel) TAB IMMEDIATE RELEASE PO SCH ×2 (16:17→20:24)
[2018-12-29] MEDS: ONDANSETRON 4 MG/2 ML (SDV) Z0FRAN IVP PRN ×2 (17:05→21:49)
[2018-12-29] MEDS: OMEGA 3 (FISH OIL) 1000 MG CAP PO SCH (20:24)
[2018-12-29] MEDS: RT-ADVAIR HFA 45/21 MCG PER PUFF IH SCH (21:00)
[2018-12-29] MEDS ORDERED: MONTELUKAST 10 MG (SINGULAIR) TAB PO SCH (21:00)
[2018-12-29] MEDS: LEVOFLOXACIN 750 MG/150 ML IV 150 ML IV SCH (23:18)
[2018-12-30] VITALS (7 sets, daily range): BP systolic 91–189; BP diastolic 55–96
[2018-12-30] MEDS: LACTATED RINGERS 1,000 ML IV SCH ×3 (00:04→15:50)
[2018-12-30] MEDS: oxyCODONE/APAP 5/325MG (PERCOCET 5) TABLET PO PRN ×2 (01:46→08:38)
--- NOTE | 2018-12-30 03:33 | NUR ---
PT HAS FREQUENT DIARRHEA, REQUEST SOMETHING FOR DIARRHEA. DR TRUJILLO NOTIFIED. DR ORDERED A STOOL CULTURE, AND IMODIUM
[2018-12-30] MEDS: LOPERAMIDE 2 MG (IMODIUM) TABLET PO PRN ×2 (04:50→09:12)
[2018-12-30] MEDS: RT-ALBUTEROL/IPRATROPIUM 3 ML (DUONEB) VIAL INH SCH ×6 (05:22→22:27)
[2018-12-30] MEDS: LEVOTHYROXINE 50 MCG (LEVOTHROID) TAB PO SCH (06:41)
[2018-12-30] MEDS: KETOROLAC 15 MG/ML VIAL IVP PRN ×2 (06:45→21:27)
[2018-12-30] MEDS: RT-ADVAIR HFA 45/21 MCG PER PUFF IH SCH ×2 (06:49→18:35)
--- NOTE | 2018-12-30 07:40 | Pulmonary Progress Note ---
Sepsis Event Evaluation Height, Weight, BMI Height: 5'2.00" Weight: 248lbs. oz. 112.497946ta; 45.39 BMI Method:Stated Focused Exam Lactate Level 12/29/18 09:58: Lactic Acid Level 4.72*H 12/29/18 14:15: Lactic Acid Level 4.51*H Exam Exam Vital Signs Date Time Temp Pulse Resp B/P (MAP) Pulse Ox O2 Delivery O2 Flow Rate FiO2 12/30/18 06:48 92 Room Air 12/30/18 04:03 36.4 100 22 104/65 (78) 91 Room Air 12/30/18 00:39 37.0 103 22 91/62 (72) 93 Room Air 12/29/18 21:02 94 Room Air 12/29/18 21:00 92 Room Air 12/29/18 20:30 Nasal Cannula 2.00 12/29/18 20:00 37.4 98 18 107/68 (81) 94 Room Air 12/29/18 16:00 37.3 111 20 132/70 (90) 93 Room Air 12/29/18 14:31 94 Room Air 12/29/18 12:08 36.9 111 22 140/79 (99) 93 Nasal Cannula 2.00 12/29/18 10:16 90 Room Air 12/29/18 08:00 36.3 111 24 110/65 (80) 92 Nasal Cannula 2.00 12/29/18 08:00 90 Nasal Cannula 2.00 I & O 12/30/18 06:59 Intake Total 3904 ml Output Total 4100 ml Balance -196 ml Height & Weight Height: 5'2.00" Weight: 248lbs. oz. 112.377633cc; 45.39 BMI Method:Stated General Appearance: No Apparent Distress, WD/WN, Anxious, Chronically ill, Obese HEENT: PERRL/EOMI, Normal ENT Inspection, Pharynx Normal, Moist Mucous Membranes Neck: Full Range of Motion, Normal Inspection, Non Tender Respiratory: Chest Non Tender, No Respiratory Distress, Accessory Muscle Use (subtle), Crackles, Decreased Breath Sounds, Wheezing Cardiovascular: Regular Rate, Rhythm, No Edema, No Gallop, No JVD, No Murmur, Normal Peripheral Pulses Capillary Refill: Less Than 3 Seconds Gastrointestinal: non tender, soft Extremity: Normal Capillary Refill, Normal Inspection, Normal Range of Motion, Non Tender, No Calf Tenderness, No Pedal Edema Neurologic/Psychiatric: Alert, Oriented x3, No Motor/Sensory Deficits, Normal Mood/Affect Skin: Normal Color, Warm/Dry Lymphatic: No Adenopathy Results Lab Laboratory Tests 12/28/18 20:30 12/29/18 05:03 Assessment/Plan Assessment/Plan PNeumonia with sepsis -Pt did have 30cc/kg of IVF -Repeat labs pending - Levaquin -Meneses cultures pending Metabolic lactic acidosis - IVF to 150 COPD -SVNs Q 4 -Monitor Tobacco use -Education MARIA EUGENIA MARINO DO Dec 30, 2018 07:40
[2018-12-30 08:31] LABS: BASOPHILS % (AUTO) 0 % (0-10); EOSINOPHILS # (AUTO) 0.1 10^3/uL (0.0-0.3); EOSINOPHILS % (AUTO) 1 % (0-10); HEMATOCRIT 37 % (35-52); HEMOGLOBIN 12.2 G/DL (11.5-16.0); LYMPHOCYTES # (AUTO) 3.7 X 10^3 (1.0-4.0); LYMPHOCYTES % (AUTO) 36 % (12-44); MEAN CORPUSCULAR HEMOGLOBIN 30 PG (25-34); MEAN CORPUSCULAR HGB CONC 33 G/DL (32-36); MEAN CORPUSCULAR VOLUME 92 FL (80-99); MEAN PLATELET VOLUME 9.6 FL (7.4-10.4); MONOCYTES # (AUTO) 1.2 X 10^3 (0.0-1.0); MONOCYTES % (AUTO) 12 % (0-12); NEUTROPHILS # (AUTO) 5.1 X 10^3 (1.8-7.8); NEUTROPHILS % (AUTO) 51 % (42-75); PLATELET COUNT 226 10^3/uL (130-400); RED CELL DISTRIBUTION WIDTH 13.9 % (10.0-14.5); WHITE BLOOD COUNT 10.1 10^3/uL (4.3-11.0)
[2018-12-30] MEDS: NICOTINE 14 MG (NICODERM) PATCH TD SCH (08:35)
[2018-12-30] MEDS: LORATADINE (CLARITIN) 10 MG TAB PO SCH (08:35)
[2018-12-30] MEDS: OMEGA 3 (FISH OIL) 1000 MG CAP PO SCH ×2 (08:35→21:55)
[2018-12-30] MEDS: ENOXAPARIN 40 MG/0.4 ML (LOVENOX) SYR SC SCH ×2 (08:35→21:55)
[2018-12-30] MEDS: QUEtiapine 100 MG (SEROquel) TAB IMMEDIATE RELEASE PO SCH ×3 (08:35→21:54)
[2018-12-30 08:49] LABS: ALANINE AMINOTRANSFERASE 41 U/L (0-55); ALBUMIN 3.5 GM/DL (3.2-4.5); ALKALINE PHOSPHATASE 111 U/L (40-136); BILIRUBIN,TOTAL 0.5 MG/DL (0.1-1.0); BUN/CREATININE RATIO 23; CALCIUM 8.3 MG/DL (8.5-10.1); CARBON DIOXIDE 21 MMOL/L (21-32); CHLORIDE 108 MMOL/L (98-107); GFR ESTIMATED > 60; GLUCOSE 134 MG/DL (70-105); MAGNESIUM 1.6 MG/DL (1.6-2.4); PHOSPHORUS 3.2 MG/DL (2.3-4.7); POTASSIUM 3.9 MMOL/L (3.6-5.0); SODIUM 138 MMOL/L (135-145); TOTAL PROTEIN 6.1 GM/DL (6.4-8.2)
[2018-12-30] MEDS ORDERED: QUEtiapine 100 MG (SEROquel) TAB IMMEDIATE RELEASE PO SCH (09:00)
[2018-12-30] MEDS ORDERED: PATCH REMOVAL TP SCH (09:00)
--- NOTE | 2018-12-30 11:08 | Progress Note - Hospitalist ---
Subjective HPI/CC On Admission Date Seen by Provider: Dec 30, 2018 Time Seen by Provider: 09:45 Chief complaint: Pneumonia History of present illness: This is a 38-year-old white female morbidly obese with BMI of 45 with history of nighttime hypoxia maintain on 2 L of oxygen for the past 2 years and continued smoking history who presented to the ER with shortness of breath and wheezing had recently been treated for an upper resp iratory illness and exacerbation of COPD which did not require antibiotics but she was hypoxic with PO2 of 62 on ABG and chest x-ray showed pneumonia so she was found to be in need of evaluation from pulmonology in addition supportive care with IV antibiotics and nebulizer treatments. She reports that she's feeling a little better but still wheezing. She does not use nebulizer treatments at home. She was found to have an elevated lactic acid of 4.[address] Cruz was updated and I appreciate his evaluation. Subjective/Events-last exam Patient had a lot of diarrhea through the night now having vomiting so I have consulted Dr. Raphael for presumed ileus Labs are normal Lactic acid down to 1.98 C. difficile was negative on the stool Lungs sound really good and no wheezing noted She feels much better breathing tim Asking for pain medication for just generalized rib pain from the fracture she has had and I declined to add anything since that would complicate the ileus Review of Systems General: Fatigue Gastrointestinal: Nausea, Vomiting, Abdominal Pain, Diarrhea Focused Exam Lactate Level 12/29/18 09:58: Lactic Acid Level 4.72*H 12/29/18 14:15: Lactic Acid Level 4.51*H 12/30/18 08:23: Lactic Acid Level 1.98 Lactic Acid Level Objective Exam Vital Signs Vital Signs Date Time Temp Pulse Resp B/P (MAP) Pulse Ox O2 Delivery O2 Flow Rate FiO2 12/30/18 18:35 92 Room Air 12/30/18 17:11 82 20 98/55 (69) 12/30/18 16:00 37.1 12/30/18 12:00 2.00 Capillary Refill : Less Than 3 SecondsLess Than 3 Seconds General Appearance: WD/WN, Anxious, Chronically ill, Mild Distress, Obese Respiratory: Chest Non Tender, Lungs Clear, Normal Breath Sounds, No Accessory Muscle Use, No Respiratory Distress, Decreased Breath Sounds Cardiovascular: Regular Rate, Rhythm, No Edema, No Gallop, No JVD, No Murmur, Normal Peripheral Pulses Gastrointestinal: Non Tender, Soft Neurologic/Psychiatric: Alert, Oriented x3, No Motor/Sensory Deficits, Normal Mood/Affect Results/Procedures Lab Laboratory Tests 12/30/18 08:23 Patient resulted labs reviewed. Assessment/Plan Assessment and Plan Assess & Plan/Chief Complaint Assessment: Acute ileus Pneumonia Exacerbation of COPD Hypoxemia Morbid obesity Suspicion for sleep apnea versus obesity hypoventilation syndrome Continued smoking Elevated lactic acid Long-standing mental illness Hypothyroidism Plan: Dr Raphael consult NPO Home meds Appreciate Dr. Cruz IV fluids but decrease rate to decrease volume overload Nebulizers O2 Diagnosis/Problems Diagnosis/Problems (1) Acute and chronic respiratory failure with hypoxia Status: Acute (2) Chronic mental illness Status: Chronic (3) Hypothyroidism Status: Chronic Qualifiers: Hypothyroidism type: acquired Qualified Codes: E03.9 - Hypothyroidism, unspecified (4) Obesity hypoventilation syndrome Status: Chronic (5) Smoker Status: Chronic (6) Leukocytosis Status: Acute Qualifiers: Leukocytosis type: leukemoid reaction Qualified Codes: D72.823 - Leukemoid reaction (7) Elevated lactic acid level Status: Acute (8) COPD with exacerbation Status: Acute (9) Pneumonia Status: Acute Qualifiers: Pneumonia type: due to unspecified organism Laterality: right Lung location: unspecified part of lung Qualified Codes: J18.9 - Pneumonia, unspecified organism (10) Ileus (11) Nausea & vomiting (12) Diarrhea Clinical Quality Measures DVT/VTE Risk/Contraindication: Risk Factor Score Per Nursin RFS Level Per Nursing on Admit: 4+=Very High RINKU TRUJILLO DO Dec 30, 2018 11:08
[2018-12-30] MEDS: ONDANSETRON 4 MG/2 ML (SDV) Z0FRAN IVP PRN ×2 (12:08→21:26)
--- NOTE | 2018-12-30 16:33 | Diagnostic Imaging Report ---
INDICATION: Pneumonia, shortness of air. TECHNIQUE: Single view chest, 9:22 a.m. CORRELATION STUDY: 12/28/2018. FINDINGS: Heart size remains borderline enlarged. Vasculature is stable. There is a persistent density in the right mid lung field. Additional suggested atelectasis at the right and left lung base. Patient is with known right posterior lateral subacute or chronic incompletely healed rib fracture deformities. IMPRESSION: 1. Density in right mid lung field persists. Correlation with recent CT imaging may be associated with chest wall rib fractures as opposed to true pulmonary parenchymal density. 2. Minimal atelectasis or less likely infiltrate at both lung bases. Dictated by: Dictated on workstation # [id number]
[2018-12-30] MEDS ORDERED: MONTELUKAST 10 MG (SINGULAIR) TAB PO SCH (21:00)
[2018-12-30] MEDS: LEVOFLOXACIN 750 MG/150 ML IV 150 ML IV SCH (23:15)
[2018-12-31] VITALS: BP 102/68
[2018-12-31] MEDS: RT-ALBUTEROL/IPRATROPIUM 3 ML (DUONEB) VIAL INH SCH ×4 (02:48→14:39)
[2018-12-31] MEDS: LACTATED RINGERS 1,000 ML IV SCH (06:12)
[2018-12-31 06:28] LABS: BASOPHILS % (AUTO) 0 % (0-10); EOSINOPHILS # (AUTO) 0.2 10^3/uL (0.0-0.3); EOSINOPHILS % (AUTO) 3 % (0-10); HEMATOCRIT 38 % (35-52); HEMOGLOBIN 12.2 G/DL (11.5-16.0); LYMPHOCYTES # (AUTO) 3.5 X 10^3 (1.0-4.0); LYMPHOCYTES % (AUTO) 42 % (12-44); MEAN CORPUSCULAR HEMOGLOBIN 30 PG (25-34); MEAN CORPUSCULAR HGB CONC 32 G/DL (32-36); MEAN CORPUSCULAR VOLUME 93 FL (80-99); MEAN PLATELET VOLUME 10.1 FL (7.4-10.4); MONOCYTES # (AUTO) 0.8 X 10^3 (0.0-1.0); MONOCYTES % (AUTO) 9 % (0-12); NEUTROPHILS # (AUTO) 3.8 X 10^3 (1.8-7.8); NEUTROPHILS % (AUTO) 46 % (42-75); PLATELET COUNT 185 10^3/uL (130-400); RED CELL DISTRIBUTION WIDTH 13.8 % (10.0-14.5); WHITE BLOOD COUNT 8.3 10^3/uL (4.3-11.0)
[2018-12-31] MEDS: RT-ADVAIR HFA 45/21 MCG PER PUFF IH SCH (06:45)
[2018-12-31] MEDS: LEVOTHYROXINE 50 MCG (LEVOTHROID) TAB PO SCH (06:46)
[2018-12-31 06:52] LABS: BUN/CREATININE RATIO 16; CALCIUM 8.7 MG/DL (8.5-10.1); CARBON DIOXIDE 24 MMOL/L (21-32); CHLORIDE 106 MMOL/L (98-107); CREATININE SERUM 0.82 MG/DL (0.60-1.30); GFR ESTIMATED > 60; GLUCOSE 121 MG/DL (70-105); MAGNESIUM 1.6 MG/DL (1.6-2.4); PHOSPHORUS 3.4 MG/DL (2.3-4.7); POTASSIUM 4.1 MMOL/L (3.6-5.0); SODIUM 141 MMOL/L (135-145)
--- NOTE | 2018-12-31 06:52 | Pulmonary Progress Note ---
Subjective Date Seen by a Provider: Dec 31, 2018 Time Seen by a Provider: 06:46 Subjective/Events-last exam Patient says that she is not feeling better today. She says she has chest pain but that it is located along her left ribs. She denies abdominal pain but was tender in the RUQ to palpation. ROS admits: headache, nausea, vomiting, diaphoresis, chest pain, SOB, and malaise denies: fever, chills, abdominal pain, numbness, tingling, Sepsis Event Evaluation Height, Weight, BMI Height: 5'2.00" Weight: 248lbs. oz. 112.203150qs; 45.39 BMI Method:Stated Focused Exam Lactate Level 12/29/18 09:58: Lactic Acid Level 4.72*H 12/29/18 14:15: Lactic Acid Level 4.51*H 12/30/18 08:23: Lactic Acid Level 1.98 Exam Exam Vital Signs Date Time Temp Pulse Resp B/P (MAP) Pulse Ox O2 Delivery O2 Flow Rate FiO2 12/31/18 02:48 92 Room Air 12/31/18 00:00 36.7 88 18 102/68 (79) 93 Room Air 12/30/18 22:27 93 Room Air 12/30/18 20:59 Nasal Cannula 2.00 12/30/18 18:35 92 Room Air 12/30/18 17:11 82 20 98/55 (69) 96 12/30/18 16:00 37.1 84 18 91/59 (70) 93 Room Air 12/30/18 14:11 92 Room Air 12/30/18 12:00 37.2 95 20 99/64 (76) 95 Nasal Cannula 2.00 12/30/18 10:00 36.6 99 20 102/64 (77) 93 Nasal Cannula 2.00 12/30/18 08:00 36.6 94 20 91/57 (68) 92 Nasal Cannula 2.00 12/30/18 08:00 92 Nasal Cannula 2.00 12/30/18 06:48 92 Room Air I & O 12/31/18 07:00 Intake Total 4422 ml Balance 4422 ml Height & Weight Height: 5'2.00" Weight: 248lbs. oz. 112.440262au; 45.39 BMI Method:Stated General Appearance: No Apparent Distress, WD/WN, Anxious, Chronically ill, Mild Distress, Obese HEENT: Moist Mucous Membranes Respiratory: Lungs Clear, No Accessory Muscle Use, No Respiratory Distress, Decreased Breath Sounds, Other (chest tender to palpation ) Cardiovascular: Regular Rate, Rhythm, No Edema, No Gallop, No JVD, No Murmur, Normal Peripheral Pulses Capillary Refill: Less Than 3 Seconds Peripheral Pulses: 2+ Dorsalis Pedis (R), 2+ Left Dors-Pedis (L), 2+ Radial Pulses (R), 2+ Radial Pulses (L) Gastrointestinal: non tender, soft Extremity: Normal Capillary Refill, Normal Inspection, Normal Range of Motion, Non Tender, No Calf Tenderness, No Pedal Edema Neurologic/Psychiatric: Alert, Oriented x3, No Motor/Sensory Deficits, Normal Mood/Affect Skin: Normal Color, Warm/Dry Lymphatic: No Adenopathy Results Lab Laboratory Tests 12/30/18 08:23 12/31/18 05:39 Assessment/Plan Assessment/Plan PNeumonia with sepsis -Pt did have 30cc/kg of IVF -Repeat labs pending - Levaquin -Meneses cultures pending - blood cultures are negative Metabolic lactic acidosis- Resolved - IVF to 150 COPD -SVNs Q 4 -Monitor Tobacco use -Education MATY MOORE,MED STUDENT Dec 31, 2018 06:52
[2018-12-31 08:00] VITALS: BP 111/73
[2018-12-31] MEDS: QUEtiapine 100 MG (SEROquel) TAB IMMEDIATE RELEASE PO SCH (08:46)
[2018-12-31] MEDS: ENOXAPARIN 40 MG/0.4 ML (LOVENOX) SYR SC SCH (08:46)
[2018-12-31] MEDS: LORATADINE (CLARITIN) 10 MG TAB PO SCH (08:46)
[2018-12-31] MEDS ORDERED: RT-ALBUINH IH (08:46)
[2018-12-31] MEDS: NICOTINE 14 MG (NICODERM) PATCH TD SCH (08:46)
[2018-12-31] MEDS: OMEGA 3 (FISH OIL) 1000 MG CAP PO SCH (08:46)
[2018-12-31] MEDS ORDERED: BENZ-36 PO (08:46)
[2018-12-31] MEDS ORDERED: HYDR-3812 PO (09:22)
--- NOTE | 2018-12-31 09:22 | NUR ---
SPOKE WITH PT (ALSO CALLED JOSÉ LUIS AND CALIXTO) WELL GOING THRU THE EXT MED HISTORY TO COMPLETE THE MED REC. PT HAD HER BOTTLES AND WAS ABLE TO TELL ME HOW SHE TAKES THEM. HYDROCODONE :PT STATES SHE TAKES THIS MEDICATION FIRST AND IF PAIN HAS NOT SUBSIDED SHE WILL THEN TAKE OXYCODONE.
--- NOTE | 2018-12-31 09:35 | NUR ---
patient heparin locked per Dr. Cardenas orders at this time.
[2018-12-31] MEDS ORDERED: NICO-587 TD (09:43)
[2018-12-31] MEDS ORDERED: LEVO750T39 PO (09:43)
--- NOTE | 2018-12-31 09:44 | Discharge Summary ---
Discharge Summary Hospital Course Was the Problem List Reviewed?: Yes Problems/Dx: (1) Acute and chronic respiratory failure with hypoxia Status: Acute (2) Chronic mental illness Status: Chronic (3) Hypothyroidism Status: Chronic Qualifiers: Qualified Codes: E03.9 - Hypothyroidism, unspecified (4) Obesity hypoventilation syndrome Status: Chronic (5) Smoker Status: Chronic (6) Leukocytosis Status: Acute Qualifiers: Qualified Codes: D72.823 - Leukemoid reaction (7) Elevated lactic acid level Status: Acute (8) COPD with exacerbation Status: Acute (9) Pneumonia Status: Acute Qualifiers: Qualified Codes: J18.9 - Pneumonia, unspecified organism (10) Ileus (11) Nausea & vomiting Status: Acute Qualifiers: (12) Diarrhea Status: Acute Qualifiers: Qualified Codes: R19.7 - Diarrhea, unspecified Hospital Course Date of Admission: Dec 28, 2018 at 21:30 Admission Diagnosis : [facility] Date of Discharge: 12/31/18 Discharge Diagnosis: Acute on chronic respiratory failure, obesity hypoventilation syndrome, pneumonia, severe nausea vomiting and diarrhea with ileus requiring general surgery consultation Hospital Course: Patient had an uneventful hospital course she was admitted for pneumonia and acute on chronic respiratory failure and Dr. Cruz was consulted IV fluids given aggressively for lactic acid 4.1 which resulted in resolution of the elevated level. Antibiotics were well-tolerated but nausea and vomiting and diarrhea occurred causing an ileus prompting general surgery consultation and managed conservatively. She was deemed stable for discharge walking the halls tolerating medications and will have close follow-up with [facility]. Labs and Pending Lab Test: Laboratory Tests 12/31/18 05:39: White Blood Count 8.3, Red Blood Count 4.12L, Hemoglobin 12.2, Hematocrit 38, Mean Corpuscular Volume 93, Mean Corpuscular Hemoglobin 30, Mean Corpuscular Hemoglobin Concent 32, Red Cell Distribution Width 13.8, Platelet Count 185, Mean Platelet Volume 10.1, Neutrophils (%) (Auto) 46, Lymphocytes (%) (Auto) 42, Monocytes (%) (Auto) 9, Eosinophils (%) (Auto) 3, Basophils (%) (Auto) 0, Neutrophils # (Auto) 3.8, Lymphocytes # (Auto) 3.5, Monocytes # (Auto) 0.8, Eosinophils # (Auto) 0.2, Basophils # (Auto) 0.0, Sodium Level 141, Potassium Level 4.1, Chloride Level 106, Carbon Dioxide Level 24, Anion Gap 11, Blood Urea Nitrogen 13, Creatinine 0.82, Estimat Glomerular Filtration Rate > 60, BUN/Creatinine Ratio 16, Glucose Level 121H, Calcium Level 8.7, Phosphorus Level 3.4, Magnesium Level 1.6 Microbiology 12/28/18 Blood Culture - Preliminary, Resulted No growth 12/30/18 C. difficile [facility]DH Antigen & Toxins - Final, Complete 12/28/18 Influenza Types A,B Antigen (JOSE) - Final, Complete Home Meds Active Reported Hydrocodone-Acetamin 5-325 mg (Hydrocodone/Acetaminophen) 1 Each Tablet 1 Tab PO Q6H TAKES HYDROCODONE IF PAIN IS NOT RELIEVED SHE FOLLOWS UP WITH OXYCODONE/APAP Benzonatate 100 Mg Capsule 100 Mg PO TID PRN Proair Hfa (Albuterol Sulfate) 1 Puff Puff 2 Puff IH Q4H PRN 1 PUFF = 90 MCG Oxycodone-Acetaminophen 5-325 (Oxycodone HCl/Acetaminophen) 1 Each Tablet 5-325 Mg PO Q4H PRN TAKES HYDROCODONE IF PAIN IS NOT RELIEVED SHE FOLLOWS UP WITH OXYCODONE/APAP Symbicort 80-4.5 Mcg Inhaler (Budesonide/Formoterol Fumarate) 10.2 Gm Hfa.aer.ad 2 Puff INH BID Nabumetone 500 Mg Tablet 500 Mg PO BID Hydroxyzine HCl 50 Mg Tablet 100 Mg PO TID PRN [place]-3 Fish Oil 1,000 mg Sftg ([place]-3/Dha/Epa/Fish Oil) 1 Each Capsule 2,000 Mg PO BID Quetiapine Fumarate 400 Mg Tablet 400 Mg PO HS Quetiapine Fumarate 100 Mg Tablet 100 Mg PO BID Loratadine 10 Mg Tablet 10 Mg PO DAILY Montelukast Sodium 10 Mg Tablet 10 Mg PO DAILY Levothyroxine Sodium 175 Mcg Tablet 175 Mcg PO DAILY Assessment/Pt Instructions [facility] as scheduled Discharge Planning: <30 minutes discharge planning Discharge Physical Examination Vital Signs Vital Signs Date Time Temp Pulse Resp B/P (MAP) Pulse Ox O2 Delivery O2 Flow Rate FiO2 12/31/18 08:00 92 Room Air 2.00 12/31/18 08:00 36.4 94 18 111/73 (86) General Appearance: No Apparent Distress, WD/WN Respiratory: Chest Non Tender, Lungs Clear, Normal Breath Sounds, No Accessory Muscle Use, No Respiratory Distress Cardiovascular: Regular Rate, Rhythm, No Edema, No Gallop, No JVD, No Murmur, Normal Peripheral Pulses Neurologic/Psychiatric: Alert, Oriented x3, No Motor/Sensory Deficits, Normal Mood/Affect Allergies: Coded Allergies: Penicillins (Unverified Allergy, Mild, 12/29/18) aspirin (Verified Allergy, Unknown, 12/22/18) cephalexin (Verified Allergy, Unknown, 12/22/18) folic acid (Verified Allergy, Unknown, 12/22/18) iron (Verified Allergy, Unknown, 12/22/18) penicillin G (Verified Allergy, Unknown, 12/22/18) tramadol (Verified Allergy, Unknown, 12/22/18) Discharge Summary Date of Admission Dec 28, 2018 at 21:30 Date of Discharge Admission Diagnosis Assessment: Pneumonia Exacerbation of COPD Hypoxemia Morbid obesity Suspicion for sleep apnea versus obesity hypoventilation syndrome Continued smoking Elevated lactic acid Long-standing mental illness Hypothyroidism Plan: Home meds Appreciate Dr. Cruz IV fluids Nebulizers O2 Discharge Diagnosis Assessment: Acute ileus Pneumonia Exacerbation of COPD Hypoxemia Morbid obesity Suspicion for sleep apnea versus obesity hypoventilation syndrome Continued smoking Elevated lactic acid Long-standing mental illness Hypothyroidism Plan: Dr Raphael consult NPO Home meds Appreciate Dr. Cruz IV fluids but decrease rate to decrease volume overload Nebulizers O2 (1) Acute and chronic respiratory failure with hypoxia Status: Acute (2) Chronic mental illness Status: Chronic (3) Hypothyroidism Status: Chronic Qualifiers: Qualified Codes: E03.9 - Hypothyroidism, unspecified (4) Obesity hypoventilation syndrome Status: Chronic (5) Smoker Status: Chronic (6) Leukocytosis Status: Acute Qualifiers: Qualified Codes: D72.823 - Leukemoid reaction (7) Elevated lactic acid level Status: Acute (8) COPD with exacerbation Status: Acute (9) Pneumonia Status: Acute Qualifiers: Qualified Codes: J18.9 - Pneumonia, unspecified organism (10) Ileus (11) Nausea & vomiting Status: Acute Qualifiers: (12) Diarrhea Status: Acute Qualifiers: Qualified Codes: R19.7 - Diarrhea, unspecified Clinical Quality Measures DVT/VTE Risk/Contraindication: Risk Factor Score Per Nursin RFS Level Per Nursing on Admit: 4+=Very High TRUJILLO,RINKU DO Dec 31, 2018 09:44
[2018-12-31 10:04] VITALS: BP 111/73
[2018-12-31] MEDS: oxyCODONE/APAP 5/325MG (PERCOCET 5) TABLET PO PRN (10:52)
[2018-12-31] MEDS ORDERED: LEVOFLOXACIN 750 MG TAB (LEVAQUIN) PO SCH (11:00)
--- NOTE | 2018-12-31 13:15 | Physician Query Clarification ---
PQ-Conflicting Diagnosis Admission/Discharge Admission Date: Dec 28, 2018 at 21:30 Discharge Date: The medical record reflects the following clinical scenario: History/Risk Factors: acute on chronic respiratory failure, AECOPD Clinical Findings: metabolic acidosis, pneumonia Treatment: Levaquin, IV fluids Question: Do you agree with the impression of the SEPSIS per Dr. Cruz. Please document a response in Progress Note or Discharge Summary. 1. Yes 2. No 3. Other, with explanation of clinical findings 4. Clinically undetermined, no explanation for clinical findings. PHYSICIAN RESPONSE Do you agree w/Consulting Dx?: Yes Please remember a lack of response to the above will prompt a phone page by [facility]/Coding staff. In responding to this query, please exercise your independent professional judgment. The purpose of this communication is to more accurately reflect the complexity of your patients condition. The fact that a question is asked does not imply that any particular answer is desired or expected. Thank you for your timely response to this clarification. Requestors name: Meredith Olivo Phone # [phone] THIS PHYSICIAN QUERY FORM IS A PERMANENT PART OF THE MEDICAL RECORD MEREDITH MORENO Dec 31, 2018 13:15 RINKU TRUJILLO DO Dec 31, 2018 20:23
== END 2018-12-31 15:10 | disposition home or self-care (01) | DRG 871 ==
LOC: EDUNIT# 20:01 → ER FS 20:03 → 4TH 21:30
PROVIDERS: ADMIT Internal Medicine; ATTEND Internal Medicine
DX: A41.9 Sepsis, unspecified organism (principal); J96.21 Acute and chronic respiratory failure with hypoxia; J18.9 Pneumonia, unspecified organism; E87.2 Acidosis; E66.2 Morbid (severe) obesity with alveolar hypoventilation; Z68.42 Body mass index [BMI] 45.0-49.9, adult; J44.0 Chronic obstructive pulmonary disease with (acute) lower respiratory infection; J44.1 Chronic obstructive pulmonary disease with (acute) exacerbation; K56.7 Ileus, unspecified; E03.9 Hypothyroidism, unspecified; D72.823 Leukemoid reaction; F17.210 Nicotine dependence, cigarettes, uncomplicated; E78.00 Pure hypercholesterolemia, unspecified; I10 Essential (primary) hypertension; G43.909 Migraine, unspecified, not intractable, without status migrainosus; E11.9 Type 2 diabetes mellitus without complications; F41.9 Anxiety disorder, unspecified; F31.9 Bipolar disorder, unspecified; F20.9 Schizophrenia, unspecified; F60.9 Personality disorder, unspecified; S22.39XD Fracture of one rib, unspecified side, subsequent encounter for fracture with routine healing
CPT/HCPCS: 36415; 71045; 71046; 80048; 80053; 82805; 83605; 83735; 84100; 84703; 85025; 87040; 87081; 87324; 87449; 87804; 94640; 94760; 96361; 96365; 96375